=== PATIENT | female | born 1950 | race Caucasian/White ===

== ENCOUNTER 2019-12-27 10:29 | Emergency (ER) | payer MEDICARE, OTHER ==
[~2019-12-27] VITALS: Ht 167.6 cm; Wt 96.2 kg
--- OUTSIDE RECORDS SUMMARY | ~2019-12-27 | XMS | Encounter Summary ---
Demographics + + + | Address | [address] | | | [place] [address] | + + + | Home Phone | | + + + | Preferred Language | Unknown | + + + | Marital Status | | + + + | Religion Affiliation | LUT | + + + | Race | White | + + + | Ethnic Group | Not or | + + + Author + + + | Author | [facility] | + + + | Organization | [facility] | + + + | Address | Unknown | + + + | Phone | Unavailable | + + + Support + + + + + | Name | Relationship | Address | Phone | + + + + + | Sky Pickett | ECON | Unknown | | + + + + + | Cherelle Silva | ECON | [place], | | + + + + + Care Team Providers + +------+ + | Care Autocad Designer Name | Role | Phone | + +------+ + | Oz Rodriguez MD | PCP | | + +------+ + Encounter Details +--------+ + + + + | Date | Type | Department | Care Team | Description | +--------+ + + + + | 11/19/ | Pharmacy | [facility] | | | | 2020 | Visit | [address] | | | | | | [address] | | | | | | [place] [address] | | | | | | [phone] | | | +--------+ + + + + Social History + +-------+ +--------+------+ | Tobacco Use | Types | Packs/Day | Years | Date | | | | | Used | | + +-------+ +--------+------+ | Never Smoker | | | | | + +-------+ +--------+------+ + +---+---+---+ | Smokeless Tobacco: | | | | | Never Used | | | | + +---+---+---+ + + +---------+ + | Alcohol Use | Drinks/Week | oz/Week | Comments | + + +---------+ + | Yes | | | 3 times a week | + + +---------+ + + + + | Sex Assigned at | Date Recorded | | | | + + + | Not on file | | + + + + + + + | Job Start Date | Occupation | Industry | + + + + | Not on file | Not on file | Not on file | + + + + + + + + | Travel History | Travel Start | Travel End | + + + + + + | No recent travel history available. | + + + + + + | COVID-19 Exposure | Response | Date Recorded | + + + + | In the last month, have you been in contact | No / Unsure | 11/10/2019 9:38 AM | | with someone who was confirmed or | | PDT | | suspected to have Coronavirus / COVID-19? | | | + + + + documented as of this encounter Functional Status + + + + | Functional Status | Response | Date of Assessment | + + + + | Because of a physical, mental, or emotional | No | 08/06/2019 | | condition, do you have serious difficulty | | | | doing errands alone such as visiting the | | | | doctor? | | | + + + + + + + + | Cognitive Status | Response | Date of Assessment | + + + + | Because of a physical, mental, or emotional | No | 08/06/2019 | | condition, do you have serious difficulty | | | | concentrating, remembering, or making | | | | decisions? (5 years old or older) | | | + + + + documented as of this encounter Plan of Treatment +--------+ + + + + | Date | Type | Specialty | Care Team | Description | +--------+ + + + + | 01/14/ | Appointment | Cardiology | | | | 2019 | | | | | +--------+ + + + + | 01/14/ | Clinical | Phlebotomy | | | | 2019 | Support | | | | | | Staff | | | | +--------+ + + + + | 01/14/ | Office | Hematology | Daysi Mccauley MD | | | 2019 | Visit | Malignancy | [address] | | | | | | [place], | | | | | | [place] [address] | | | | | | [phone] | | | | | | | | +--------+ + + + + | 01/14/ | Appointment | Hematology & | Onc, [address] | | | 2019 | | Oncology | [place] | | | | | | [place] [address] | | +--------+ + + + + documented as of this encounter Visit Diagnoses Not on filedocumented in this encounter"
--- OUTSIDE RECORDS SUMMARY | ~2019-12-27 | XMS | Encounter Summary ---
Demographics + + + | Address | [address] | | | [place] [address] | + + + | Home Phone | | + + + | Preferred Language | Unknown | + + + | Marital Status | | + + + | Presybeterian Affiliation | LUT | + + + | Race | White | + + + | Ethnic Group | Not or | + + + Author + + + | Author | [facility] | + + + | Organization | [facility] | + + + | Address | [...] Team Providers + +------+ + | Care Steward/Stewardess Club Car Name | Role | Phone | + +------+ + | Margarita Patterson | PCP | | + +------+ + Reason for Visit + + + | Reason | Comments | + + + | Oral Chemo | ruxolitinib follow up | + + + Encounter Details +--------+ + + + + | Date | Type | Department | Care Team | Description | +--------+ + + + + | 09/24/ | Telephone | [facility] | Damon Baron, | Oral Chemo | | 2019 | | Clinics at S | PharmD [address] | (ruxolitinib follow | | | | [facility] [address] | up) | | | | [facility] | [place], [place] | | | | | [facility] and He[facility], | [address] | | | | | [address] | | | | | | [place], [place] | | | | | | [address] | | | | | | [phone] | | | +--------+ + + + [...] in contact | No / Unsure | 09/11/2019 2:56 PM | | with someone who was confirmed [...] | | | | | | [place] [address] | | | | | | [phone] | | | | | | | | +--------+ + + + + | 01/14/ | Appointment | Hematology & | Onc, [address] | | | 2019 | | Oncology | [place], | | | | | | [place] [address] | | +--------+ + + + + documented as of this encounter Visit Diagnoses Not on filedocumented in this encounter"
--- OUTSIDE RECORDS SUMMARY | ~2019-12-27 | XMS | Encounter Summary ---
Demographics + + + | Address | [address] | | | [place] [address] | + + + | Home Phone | | + + + | Preferred Language | Unknown | + + + | Marital Status | | + + + | Faith Affiliation | LUT | + + + | Race | White | + + + | Ethnic Group | Not or | + + + Author + + + | Author | [facility] | + + + | Organization | [facility] | + + + | Address [...] Team Providers + +------+ + | Care Steam Tender Name | Role | Phone | + +------+ + | Oz Rodriguez MD | PCP | | + +------+ + Encounter Details +--------+ + + + + | Date | Type | Department | Care Team | Description | +--------+ + + + + | 08/26/ | Pharmacy | Pharmacy @ [facility] | | | | 2019 | Visit | [address] | | | | | | [address] Mailcode: | | | | | | [facility] | | | | | | [address], | | | | | | [address] | | | | | | [place], [place] | | | | | | [address] | | | +--------+ + + + [...] in contact | No / Unsure | 08/29/2019 10:47 AM | | with someone who was [...] | | | | | | [place], | | | | | | [place] [address] | | | | | | [phone] | | | | | | | | +--------+ + + + + | 01/14/ | Appointment | Hematology & | Onc, [address] | | | 2020 | | Oncology | [address] [place], | | | | | | [place] [address] | | +--------+ + + + + documented as of this encounter Visit Diagnoses Not on filedocumented in this encounter"
--- OUTSIDE RECORDS SUMMARY | ~2019-12-27 | XMS | Encounter Summary ---
Demographics + + + | Address | [address] | | | [place] [address] | + + + | Home Phone | | + + + | Preferred Language | Unknown | + + + | Marital Status | | + + + | Samaritan Affiliation | LUT | + + + | Race | White | + + + | Ethnic Group | Not or | + + + Author + + + | Author | [facility] | + + + | Organization | [facility] | + + + | [...] Team Providers + +------+ + | Care Investment Banking Manager Name | Role | Phone | + +------+ + | Oz Rodriguez MD | PCP | | + +------+ + Encounter Details +--------+ + + + + | Date | Type | Department | Care Team | Description | +--------+ + + + + | 11/19/ | Pharmacy | Pharmacy @ [facility] | | | | 2020 | Visit | [address] | | | | | | [address] Mailcode: | | | | | | [facility] | | | | | | [address], | | | | | | [address] | | | | | | [place], [place] | | | | | | [address] | | | +--------+ + + + [...] | | | | | [place], | | | | | | [place] [address] | | | | | | [phone] | | | | | | | | +--------+ + + + + | 01/14/ | Appointment | Hematology & | Onc, [address] | | | 2020 | | Oncology | [place], | | | | | | [place] [address] | | +--------+ + + + + documented as of this encounter Visit Diagnoses Not on filedocumented in this encounter"
--- OUTSIDE RECORDS SUMMARY | ~2019-12-27 | XMS | Encounter Summary ---
Demographics + + + | Address | [address] | | | [place] [address] | + + + | Home Phone | | + + + | Preferred Language | Unknown | + + + | Marital Status | | + + + | Baptist Affiliation | LUT | + + + | Race | White | + + + | Ethnic Group | Not or | + + + Author + + + | Author | [facility] | + + + | Organization | [facility] | + + + | Address [...] Team Providers + +------+ + | Care Staff Certified Nurse Midwife Name | Role | Phone | + +------+ + | Margarita Patterson | PCP | | + +------+ + Encounter Details +--------+ + + + + | Date | Type | Department | Care Team | Description | +--------+ + + + + | 12/01/ | Grip Assembler | [facility] | Daysi Mccauley MD | MF (myelofibrosis) | | 2020 | | Clin[facility] S | [address] | (HCC) (Primary Dx) | | | | [facility] [address] [place], | | | | | [facility] | [place] [address] | | | | | Health and Healing, | [phone] | | | | | [address] | | | | | | [place], [place] | | | | | | [address] | | | | | | [phone] | | | +--------+ + + + [...] Appointment | Cardiology | | | | 2020 | | | | | +--------+ + + + + | 01/14/ | Clinical | Phlebotomy | | | | 2020 | Support | | | | | | Staff | | | | +--------+ + + + + | 01/14/ | Office | Hematology | Daysi Mccauley MD | | | 2020 | Visit | Malignancy | [address] | | | | | | [place], | | | | | | [place] [address] | | | | | | [phone] | | | | | | | | +--------+ + + + + | 01/14/ | Appointment | Hematology & | Onc, [address] | | | 2019 | | Oncology | [place], | | | | | | [place] [address] | | +--------+ + + + + + +------+--------+ + + | Name | Type | Priori | Associated Diagnoses | Order Schedule | | | | ty | | | + +------+--------+ + + | 12 LEAD ECG | ECG | Routin | MF (myelofibrosis) | Ordered: 12/02/2019 | | | | e | (HCC) | | + +------+--------+ + + | 12 LEAD ECG | ECG | Routin | MF (myelofibrosis) | Ordered: 12/02/2019 | | | | e | ([facility]) | | + +------+--------+ + + documented as of this encounter Procedures + +--------+ + + + | Procedure Name | Priori | Date/Time | Associated Diagnosis | Comments | | | ty | | | | + +--------+ + + + | 12 LEAD ECG | Routin | 12/04/2019 | MF (myelofibrosis) | Results for this | | | e | 2:45 PM | (HCC) | procedure are in the | | | | PDT | | results section. | + +--------+ + + + documented in this encounter Results 12 LEAD ECG (12/04/2019 2:45 PM PDT) + + + + + + | Component | Value | Ref Range | Performed | Pathologist | | | | | At | Signature | + + + + + + | VENTRICULAR | 60 | bpm | [facility] | | | RATE | | | OF | | | | | | CARDIOLOGY | | + + + + + + | ATRIAL RATE | 60 | ms | [facility] | | | | | | OF | | | | | | CARDIOLOGY | | + + + + + + | P-R | 166 | ms | [facility] | | | INTERVAL | | | OF | | | | | | CARDIOLOGY | | + + + + + + | P AXIS | 1 | deg | [facility] | | | | | | OF | | | | | | CARDIOLOGY | | + + + + + + | QRS | 100 | ms | [facility] | | | DURATION | | | OF | | | | | | CARDIOLOGY | | + + + + + + | QT | 450 | ms | [facility] | | | | | | OF | | | | | | CARDIOLOGY | | + + + + + + | QTC-BAEDGARTT | 451 | ms | [facility] | | | | | | OF | | | | | | CARDIOLOGY | | + + + + + + | QTC-FRIDERI | 450 | ms | [facility] | | | RASHI | | | OF | | | | | | CARDIOLOGY | | + + + + + + | R AXIS | -11 | deg | [facility] | | | | | | OF | | | | | | CARDIOLOGY | | + + + + + + | T AXIS | 41 | deg | [facility] | | | | | | OF | | | | | | CARDIOLOGY | | + + + + + + | ECG | Sinus rhythm- NORMAL ECG | | [facility] | | | IMPRESSION | - | | OF | | | | | | CARDIOLOGY | | + + + + + + | ECG | Electronically signed | | [facility] | | | IMPRESSION | by: JEROME STONER | | OF | | | | 12-04-2019 21:16:00 | | CARDIOLOGY | | + + + + + + + + | Specimen | + + | | + + + + + | Narrative | Performed At | + + + | | | + + + + + + + + | Performing | Address | City/State/Zipcode | Phone Number | | Organization | | | | + + + + + | [facility] | [address] | [place], [place] | | | CARDIOLOGY | [address] | [address] | | + + + + + documented in this encounter Visit Diagnoses + + | Diagnosis | + + | MF (myelofibrosis) (HCC) - Primary Myelofibrosis | + + documented in this encounter"
--- OUTSIDE RECORDS SUMMARY | ~2019-12-27 | XMS | Encounter Summary ---
Demographics + + + | Address | [address] | | | [place] [address] | + + + | Home Phone | | + + + | Preferred Language | Unknown | + + + | Marital Status | | + + + | Baptism Affiliation | LUT | + + + | Race | White | + + + | Ethnic Group | Not or | + + + Author + + + | Author | [facility] | + + + | Organization | [facility] | + + + | Address [...] Team Providers + +------+ + | Care Court Registry Officer Name | Role | Phone | + +------+ + | Margarita Patterson | PCP | | + +------+ + Reason for Visit + + + | Reason | Comments | + + + | Transfusion | | + + + Encounter Details +--------+ + + + + | Date | Type | Department | Care Team | Description | +--------+ + + + + | 08/28/ | Hospital | [facility] | | | | 2020 | Encounter | [facility] | | | | | | [facility] [address] | | | | | | [facility] | | | | | [facility], | | | | | | [address] | | | | | | [place], [place] | | | | | | [address] | | | | | | [phone] | | | +--------+ + + + [...] + + documented as of this encounter Last Filed Vital Signs + + + + + | Vital Sign | Reading | Time Taken | Comments | + + + + + | Blood Pressure | 158/70 | 08/29/2019 2:44 PM | | | | | PDT | | + + + + + | Pulse | 65 | 08/29/2019 2:44 PM | | | | | PDT | | + + + + + | Temperature | 36.7 C (98.1 F) | 08/29/2019 2:44 PM | | | | | PDT | | + + + + + | Respiratory Rate | 16 | 08/29/2019 2:44 PM | | | | | PDT | | + + + + + | Oxygen Saturation | 99% | 08/29/2019 2:44 PM | | | | | PDT | | + + + + + | Inhaled Oxygen | - | - | | | Concentration | | | | + + + + + | Weight | 105.7 kg (233 lb) | 08/29/2019 11:04 AM | | | | | PDT | | + + + + + | Height | - | - | | + + + + + | Body Mass Index | 37.71 | 08/05/2019 10:34 PM | | | | | PST | | + + + + + documented in this encounter Functional Status + + + [...] + + documented as of this encounter Medications at Time of Discharge + + + +---------+ + + | Medication | Sig | Dispensed | Refills | Start | End Date | | | | | | Date | | + + + +---------+ + + | acetaminophen 500 | Take 500 mg by mouth | | 0 | | | | mg oral tablet | every six hours as | | | | | | | needed for mild | | | | | | | pain. | | | | | + + + +---------+ + + | acyclovir 800 mg | Take 1 tablet by | 30 | 11 | 08/09/19 | | | oral | mouth once daily. 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 Administer | | | | | | Pain | with food. | | | | | | | Indications: Pain | | | | | + + + +---------+ + + | fluconazole 200 mg | Take 1 tablet by | 60 | 3 | 08/22/19 | | | oral | mouth two times | tablet | | 20 | | | tabletIndications: | daily. Indications: | | | | | | fungal infection, | fungal infection | | | | | | prophylaxis | prevention | | | | | + + + +---------+ + + | | Take 25 mg by mouth | | 0 | | | | hydroCHLOROthiazide | once daily. | | | | | | 25 mg oral tablet | | | | | | + + + +---------+ + + | levothyroxine 25 | Take 25 mcg by mouth | | 0 | | | | mcg oral tablet | before breakfast. | | | | | + + + +---------+ + + | losartan 100 mg | Take 100 mg by mouth | | 0 | | | | oral tablet | once daily. | | | | | + + + +---------+ + + documented as of this encounter Progress Notes Gama Susan C, RN - 08/29/2019 11:30 AM PDT Patient ambulated independently into clinic. 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 In clinic for labs and replac ements Nursing Assessment Pain: Yes, patient has 7/10 pain in her BLE. She is taking tylenol and Celebrex to manager of compensation her pain. Fever or chills: Denies Fatigue or sleep disturbance: Yes, severe on going fatigue issues. Dizziness: Denies Neuropathy: Denies Mucositis: Denies Dyspnea, cough: Denies a cough, patient has on going ELAINE Signs of bleeding: Denies Nausea, vomiting or loss of appetite: Denies N/V, patient has a poor appetite but feels she is eating adequately. Fluid intake: 1-2 L/day, pt feels she is drinking adequate amounts. Diarrhea or constipation: Denies Edema: Denies Rash: Denies Vascular Access: PICC intact to left upper arm without erythema or induration. PICC accessed per protocol. Good blood return noted. Appropriate waste discarded. Labs drawn and sent. PICC pulse flu shed with 20 mL NS. Next dressing change is DUE 09/02/19 Per verbal orders from MD Mccauley: - Give 1 unit of PRBCs. Lab Results Component Value Date HCT 24.2 08/29/2019 HB 8.5 08/29/2019 Orders to transfuse PRBC product for a Hematocrit today as above. Type and cross for 1 uni ts of PRBC was sent to Blood Bank. Each unit was checked by two RNs to confirm the unit num fernanda, ABO and Rh type printed on tag matched information on blood bag and to confirm crossmat ch compatibility. At the bedside, two RNs verified the correct patient using two unique aryan ntifiers, confirmed the unit number, ABO and Rh type printed on tag matched the information on blood bag and confirmed crossmatch compatibility. Informed consent was verified. The patient was not premedicated. She received 1 unit of PRBCs per Provider s orders. T ransfusion was tolerated well without complication. Frequent vital signs were monitored thr oughout the transfusion and reviewed by me. For transfusion details, see ONC Lines & Transf usions doc flowsheet. Education: I called patient's Derek to ensure all medication and care questions were answered. I communicated with Derek that Fidelia should continue taking the Losartan as pharmacy direct ed, as her BP has been high. I also phoned patient's daughter to ensure all questions were a nswered, daughter requested a pharmacist call her, as she had questions regarding the intera ction between fluconazole and celebrex. Cherry López pharmacist notified and will follow up wit h patient's daughter. Reviewed next appt time with pt. Educated pt to contact clinic if experiencing temp greate r than 100.4, chills, s/s of infection or bleeding, inability to swallow or keep down liquid s or pills. Pt verbalized understanding. I wheeled patient out of clinic to her , who is also tram driver. documented in this enc ounter Plan of Treatment +--------+ + + + [...] [facility] | | | | | | [address] [place], | | | | | | [place] [address] | | | | | | [phone] | | | | | | | | +--------+ + + + + | 01/14/ | Appointment | Hematology & | Onc, Gen [address] | | | 2019 | | Oncology | [place], | | | | | | [place] [address] | | +--------+ + + + + + + +--------+ + + | Name | Type | Priori | Associated Diagnoses | Order Schedule | | | | ty | | | + + +--------+ + + | MANUAL DIFFERENTIAL | Lab - | Routin | Pancytopenia (HCC) | 08/29/2019 until | | | [facility] | e | | discontinued, 1 | | | Performable | | | completed | | | s | | | | + + +--------+ + + | RBC MORPHOLOGY | Lab - | Routin | Pancytopenia ([facility]) | 08/29/2019 until | | | [facility] | e | | discontinued, 1 | | | Performable | | | completed | | | s | | | | + + +--------+ + + documented as of this encounter Procedures + +--------+ + + + | Procedure Name | Priori | Date/Time | Associated Diagnosis | Comments | | | ty | | | | + +--------+ + + + | HB-LAB | Routin | 08/29/2019 | Pancytopenia (HCC) | Results for this | | CROSSMATCH,ELECTRONI | e | 1:04 PM | | procedure are in the | | C | | PDT | | results section. | + +--------+ + + + | [facility] - MAGNESIUM, | Routin | 08/29/2019 | Pancytopenia (HCC) | Results for this | | PLASMA | e | 11:02 AM | | procedure are in the | | | | PDT | | results section. | + +--------+ + + + | [facility] - PHOSPHORUS, | Routin | 08/29/2019 | Pancytopenia (HCC) | Results for this | | PLASMA | e | 11:02 AM | | procedure are in the | | | | PDT | | results section. | + +--------+ + + + | RBC MORPHOLOGY | Routin | 08/29/2019 | Pancytopenia (HCC) | Results for this | | | e | 11:02 AM | | procedure are in the | | | | PDT | | results section. | + +--------+ + + + | CBC AND AUTO DIFF | Routin | 08/29/2019 | Pancytopenia (HCC) | Results for this | | | e | 11:02 AM | | procedure are in the | | | | PDT | | results section. | + +--------+ + + + | MANUAL DIFFERENTIAL | Routin | 08/29/2019 | Pancytopenia (HCC) | Results for this | | | e | 11:02 AM | | procedure are in the | | | | PDT | | results section. | + +--------+ + + + | [facility] - COMPLETE | Routin | 08/29/2019 | Pancytopenia (HCC) | Results for this | | METABOLIC SET | e | 11:02 AM | | procedure are in the | | | | PDT | | results section. | + +--------+ + + + | [facility] CBC W | Routin | 08/29/2019 | Pancytopenia (HCC) | Results for this | | DIFFERENTIAL | e | 11:02 AM | | procedure are in the | | | | PDT | | results section. | + +--------+ + + + | BLOOD BANK HOLD TUBE | Routin | 08/29/2019 | Pancytopenia (HCC) | Results for this | | - DON | e | 11:02 AM | | procedure are in the | | | | PDT | | results section. | | T PROCESS | | | | | + +--------+ + + + documented in this encounter Results PRODUCT - RED CELLS LEUKOREDUCED (08/29/2019 1:04 PM PDT) + + + + + + | Component | Value | Ref Range | Performed | Pathologist | | | | | At | Signature | + + + + + + | PRODUCT | -1 RED BLOOD CELLS | | [facility] | | | DESCRIPTION | LEUKOREDUCED IRRADIATED | | LABORATORY | | | | | | SERVICES, | | | | | | TRANSFUSION | | | | | | MEDICINE | | + + + + + + | PRODUCT | [id number] | | [facility] | | | UNIT # | | | LABORATORY | | | | | | SERVICES, | | | | | | TRANSFUSION | | | | | | MEDICINE | | + + + + + + | UNIT ABO | A | | [facility] | | | | | | LABORATORY | | | | | | SERVICES, | | | | | | TRANSFUSION | | | | | | MEDICINE | | + + + + + + | UNIT RH | NEG | | [facility] | | | | | | LABORATORY | | | | | | SERVICES, | | | | | | TRANSFUSION | | | | | | MEDICINE | | + + + + + + | STATUS OF | Presumed Transfused | | [facility] | | | UNIT | | | LABORATORY | | | | | | SERVICES, | | | | | | TRANSFUSION | | | | | | MEDICINE | | + + + + + + | EXPIRATION | [id number] | | [facility] | | | DATE | | | LABORATORY | | | | | | SERVICES, | | | | | | TRANSFUSION | | | | | | MEDICINE | | + + + + + + | BLOOD TYPE | [id number] | | [facility] | | | BARCODE | | | LABORATORY | | | | | | SERVICES, | | | | | | TRANSFUSION | | | | | | MEDICINE | | + + + + + + | BLOOD | [id number] | | [facility] | | | PRODUCT | | | LABORATORY | | | CODE | | | SERVICES, | | | | | | TRANSFUSION | | | | | | MEDICINE | | + + + + + + + + | Specimen | + + | | + + + + + + + | Performing | Address | City/State/Zipcode | Phone Number | | Organization | | | | + + + + + | [facility] | [address] | [place] [address] | | | SERVICES, | [address] | | | | TRANSFUSION MEDICINE | | | | + + + + + RBC MORPHOLOGY (08/29/2019 11:02 AM PDT) + + + + + + | Component | Value | Ref Range | Performed | Pathologist | | | | | At | Signature | + + + + + + | ANISOCYTOSI | 1+(10-25cells/HPF) | | [facility] | | | S | | | LABORATORY | | | | | | SERVICES, | | | | | | [facility] + | | | | | | [facility]ALING | | + + + + + + | ACANTHOCYTE | 1+ (<2-4cells/HPF) | | [facility] | | | S | | | LABORATORY | | | | | | SERVICES, | | | | | | [facility] | | | [facility] + | | | | | | HEALING | | + + + + + + + + | Specimen | + + | Blood - Blood | | (substance) | + + + + + + + | Performing | Address | City/State/Zipcode | Phone Number | | Organization | | | | + + + + + | [facility] | [address] | [place] [address] | | | SERVICES, [place] | | | | | [facility] + HEALING | | | | + + + + + MANUAL DIFFERENTIAL (08/29/2019 11:02 AM PDT) + + + + + + | Component | Value | Ref Range | Performed | Pathologist | | | | | At | Signature | + + + + + + | NEUTROPHIL | 18.0 (L) | 50.0 - 70.0 % | [facility] | | | % | | | LABORATORY | | | | | | SERVICES, | | | | | | [facility] | [facility] + | | | | | | [facility]ALING | | + + + + + + | LYMPHOCYTE | 64.0 (H) | 18.0 - 42.0 % | [facility] | | | % | | | LABORATORY | | | | | | SERVICES, | | | | | | [facility] | [facility] + | | | | | | [facility]ALING | | + + + + + + | MONOCYTE % | 6.3 | 3.5 - 9.0 % | [facility] | | | | | | LABORATORY | | | | | | SERVICES, | | | | | | [facility] | [facility] + | | | | | | HEALING | | + + + + + + | EOSINOPHIL | 1.8 | 1.0 - 3.0 % | [facility] | | | % | | | LABORATORY | | | | | | SERVICES, | | | | | | [facility] | [facility] + | | | | | | HEALING | | + + + + + + | BASOPHIL % | 0.0 | 0.0 - 2.0 % | [facility] | | | | | | LABORATORY | | | | | | SERVICES, | | | | | | [facility] | [facility] + | | | | | | [facility]AL[facility] | | + + + + + + | IG% | 5.4 (H) | 0.0 - 1.0 % | [facility] | | | | | | LABORATORY | | | | | | SERVICES, | | | | | | [facility] | [facility] + | | | | | | HEALING | | + + + + + + | ATYPICAL | 4.5 (H)Comment: Atypical | 0.0 % | [facility] | | | CELL % | cells with fine | | LABORATORY | | | | chromatin, high N:C | | SERVICES, | | | | ratio, prominent | | [facility] | | | | nucleoli and dark blue | | HEALTH + | | | | cytoplasm. | | HEALING | | + + + + + + | NEUTROPHIL | 0.30 (L) | 1.80 - 7.70 | [facility] | | | # | | K/cu mm | LABORATORY | | | | | | SERVICES, | | | | | | [facility] | [facility] + | | | | | | [facility]ALING | | + + + + + + | LYMPHOCYTE | 1.06 | 1.00 - 4.80 | [facility] | | | # | | K/cu mm | LABORATORY | | | | | | SERVICES, | | | | | | [facility] | [facility] + | | | | | | [facility]ALING | | + + + + + + | MONOCYTE # | 0.10 | 0.10 - 0.90 | [facility] | | | | | K/cu mm | LABORATORY | | | | | | SERVICES, | | | | | | [facility] | | [facility] + | | | | | | HEALING | | + + + + + + | EOSINOPHIL | 0.03 | 0.00 - 0.50 | [facility] | | | # | | K/cu mm | LABORATORY | | | | | | SERVICES, | | | | | | [facility] | | [facility] + | | | | | | [facility]ALING | | + + + + + + | BASOPHIL # | 0.00 | 0.00 - 0.10 | [facility] | | | | | K/cu mm | LABORATORY | | | | | | SERVICES, | | | | | | [facility] | | | [facility] + | | | | | | HEALING | | + + + + + + | IG# | 0.09 | 0.00 - 0.10 | [facility] | | | | | K/cu mm | LABORATORY | | | | | | SERVICES, | | | | | | [facility] | | | [facility] + | | | | | | HEALING | | + + + + + + | ATYPICAL | 0.07 | K/cu mm | [facility] | | | CELLS # | | | LABORATORY | | | | | | SERVICES, | | | | | | [facility] | | | [facility] + | | | | | | [facility]ALING | | + + + + + + + + | Specimen | + + | Blood - Blood | | (substance) | + + + + + | Narrative | Performed At | + + + | Increased immature granulocytes (IG) define a left shift. Immature | [facility] | | granulocytes (IG) are an automated count of metamyelocytes, | LABORATORY | | myelocytes and promyelocytes. Bands are not included in the IG count. | SERVICES, | | Bands are included in the neutrophil count. | [facility] + | | | [facility]AL[facility] | + + + + + + + + | Performing | Address | City/State/Zipcode | Phone Number | | Organization | | | | + + + + + | [facility] | [address] | [place] [address] | | | [facility] | | | | | HEALTH + HEALING | | | | + + + + + CBC AND AUTO DIFF (08/29/2019 11:02 AM PDT) + + + + + + | Component | Value | Ref Range | Performed | Pathologist | | | | | At | Signature | + + + + + + | WHITE CELL | 1.65 (LL) | 3.50 - 10.80 | [facility] | | | COUNT | | K/cu mm | LABORATORY | | | | | | SERVICES, | | | | | | [facility] | [facility] + | | | | | | HEALING | | + + + + + + | RED CELL | 2.98 (L) | 4.00 - 5.20 | [facility] | | | COUNT | | M/cu mm | LABORATORY | | | | | | SERVICES, | | | | | | [facility] | | | [facility] + | | | | | | HEALING | | + + + + + + | HEMOGLOBIN | 8.5 (L) | 12.0 - 16.0 | [facility] | | | | | g/dL | LABORATORY | | | | | | SERVICES, | | | | | | [facility] | [facility] + | | | | | | [facility]ALING | | + + + + + + | HEMATOCRIT | 24.2 (L) | 36.0 - 46.0 % | [facility] | | | | | | LABORATORY | | | | | | SERVICES, | | | | | | [facility] | [facility] + | | | | | | [facility]AL[facility] | | + + + + + + | MCV | 81.2 | 80.0 - 100.0 fL | [facility] | | | | | | LABORATORY | | | | | | SERVICES, | | | | | | [facility] | [facility] + | | | | | | [facility]ALING | | + + + + + + | MCHC | 35.1 | 32.0 - 36.0 | [facility] | | | | | g/dL | LABORATORY | | | | | | SERVICES, | | | | | | [facility] | [facility] + | | | | | | HEALING | | + + + + + + | RDW SD | 38.8 | 35.1 - 46.3 fL | [facility] | | | | | | LABORATORY | | | | | | SERVICES, | | | | | | [facility] | | | [facility] + | | | | | | HEALING | | + + + + + + | PLATELET | 13 (L) | 150 - 400 K/cu | [facility] | | | COUNT | | mm | LABORATORY | | | | | | SERVICES, | | | | | | [facility] | | [facility] + | | | | | | [facility]ALING | | + + + + + + | MPV | Comment: Not Measured | | [facility] | | | | | | LABORATORY | | | | | | SERVICES, | | | | | | [facility] | | | [facility] + | | | | | | HEALING | | + + + + + + | NRBC% | 0.0 | 0.0 - 0.3 % | [facility] | | | | | | LABORATORY | | | | | | SERVICES, | | | | | | [facility] | | | | | [facility] + | | | | | | HEALING | | + + + + + + | NRBC# | 0.00 | 0.00 - 0.02 | [facility] | | | | | K/cu mm | LABORATORY | | | | | | SERVICES, | | | | | | [facility] | | | | | [facility] + | | | | | | HEALING | | + + + + + + | NEUTROPHIL | 0.29 (L)Comment: | 1.80 - 7.70 | [facility] | | | # Prelim | Preliminary automated | K/cu mm | LABORATORY | | | | neutrophil result. | | SERVICES, | | | | Refer to Neutrophil # | | [facility] | | | | for final neutrophil | | HEALTH + | | | | result, which may differ | | HEALING | | | | from this preliminary | | | | | | value. | | | | + + + + + + + + | Specimen | + + | Blood - Blood | | (substance) | + + + + + + + | Performing | Address | City/State/Zipcode | Phone Number | | Organization | | | | + + + + + | [facility] | [address] | [place] [address] | | | SERVICES, [facility] | | | | | [facility] + HEALING | | | | + + + + + [facility] - PHOSPHORUS, PLASMA (08/29/2019 11:02 AM PDT) + +-------+ + + + | Component | Value | Ref Range | Performed | Pathologist | | | | | At | Signature | + +-------+ + + + | PHOSPHORUS, | 4.5 | 2.4 - 4.7 mg/dL | [facility] | | | PLASMA | | | LABORATORY | | | (LAB) | | | SERVICES, | | | | | | [facility] | | | | [facility] + | | | | | | HEALING | | + +-------+ + + + + + | Specimen | + + | Blood - Blood | | (substance) | + + + + + + + | Performing | Address | City/State/Zipcode | Phone Number | | Organization | | | | + + + + + | [facility] | [address] | [place] [address] | | | SERVICES, [place] | | | | | [facility] + HEALING | | | | + + + + + [facility] - MAGNESIUM, PLASMA (08/29/2019 11:02 AM PDT) + +-------+ + + + | Component | Value | Ref Range | Performed | Pathologist | | | | | At | Signature | + +-------+ + + + | MAGNESIUM,P | 1.6 | 1.6 - 2.6 mg/dL | [facility] | | | LASMA | | | LABORATORY | | | | | | SERVICES, | | | | | | [facility] | | | [facility] + | | | | | | HEALING | | + +-------+ + + + + + | Specimen | + + | Blood - Blood | | (substance) | + + + + + + + | Performing | Address | City/State/Zipcode | Phone Number | | Organization | | | | + + + + + | [facility] | [address] | [place] [address] | | | SERVICES, [facility] | | | | [facility] + HEALING | | | | + + + + + BLOOD BANK HOLD TUBE - DON T PROCESS (08/29/2019 11:02 AM PDT) + + + + + + | Component | Value | Ref Range | Performed | Pathologist | | | | | At | Signature | + + + + + + | SPECIMEN | Sample received with | | [facility] | | | COLLECTED, | adeq label/volume to | | LABORATORY | | | HELD | process | | SERVICES, | | | | | | TRANSFUSION | | | | | | MEDICINE | | + + + + + + + + | Specimen | + + | Blood - Blood | | (substance) | + + + + + + + | Performing | Address | City/State/Zipcode | Phone Number | | Organization | | | | + + + + + | [facility] | [address] | [place] [address] | | | SERVICES, | [address] | | | | TRANSFUSION MEDICINE | | | | + + + + + [facility] - COMPLETE METABOLIC SET (08/29/2019 11:02 AM PDT) + + + + + + | Component | Value | Ref Range | Performed | Pathologist | | | | | At | Signature | + + + + + + | GLUCOSE, | 184 (H) | 70 - 99 mg/dL | [facility] | | | PLASMA | | | LABORATORY | | | (LAB) | | | SERVICES, | | | | | | [facility] | [facility] | [facility] + | | | | | | HEALING | | + + + + + + | BUN, PLASMA | 12 | 6 - 20 mg/dL | [facility] | | | (LAB) | | | LABORATORY | | | | | | SERVICES, | | | | | | [facility] | | | [facility] + | | | | | | HEALING | | + + + + + + | CREATININE | 0.70 | 0.60 - 1.10 | [facility] | | | PLASMA | | mg/dL | LABORATORY | | | (LAB) | | | SERVICES, | | | | | | [facility] | | | | | [facility] + | | | | | | HEALING | | + + + + + + | EGFR | >60 | >60 mL/min | [facility] | | | - | | | LABORATORY | | | EMIRATI | | | SERVICES, | | | | | | [facility] | | | | | [facility] + | | | | | | HEALING | | + + + + + + | EGFR NON | >60 | >60 mL/min | [facility] | | | -[facility] | | | LABORATORY | | | RICAN | | | SERVICES, | | | | | | [facility] | | | [facility] + | | | | | | HEALING | | + + + + + + | SODIUM, | 139 | 136 - 145 | [facility] | | | PLASMA | | mmol/L | LABORATORY | | | (LAB) | | | SERVICES, | | | | | | [facility] | | | | | [facility] + | | | | | | HEALING | | + + + + + + | POTASSIUM, | 3.6 | 3.4 - 5.0 | [facility] | | | PLASMA | | mmol/L | LABORATORY | | | (LAB) | | | SERVICES, | | | | | | [facility] | | | | | | [facility] + | | | | | | HEALING | | + + + + + + | CHLORIDE, | 101 | 97 - 108 mmol/L | [facility] | | | PLASMA | | | LABORATORY | | | (LAB) | | | SERVICES, | | | | | | [facility] | | | | | [facility] + | | | | | | HEALING | | + + + + + + | TOTAL CO2, | 29 | 21 - 32 mmol/L | [facility] | | | PLASMA | | | LABORATORY | | | (LAB) | | | SERVICES, | | | | | | [facility] | | | | [facility] + | | | | | | HEALING | | + + + + + + | CALCIUM, | 10.4 (H) | 8.6 - 10.2 | [facility] | | | PLASMA | | mg/dL | LABORATORY | | | (LAB) | | | SERVICES, | | | | | | [facility] | | | | [facility] + | | | | | | HEALING | | + + + + + + | CALCIUM(ALB | 11.4 (H) | 8.6 - 10.2 | [facility] | | | CORRECTED) | | mg/dL | LABORATORY | | | | | | SERVICES, | | | | | | [facility] | [facility] | | | [facility] + | | | | | | HEALING | | + + + + + + | BILIRUBIN | 0.7 | 0.3 - 1.2 mg/dL | [facility] | | | TOTAL | | | LABORATORY | | | | | | SERVICES, | | | | | | [facility] | | | | | | [facility] + | | | | | | HEALING | | + + + + + + | TOTAL | 7.4 | 6.4 - 8.2 g/dL | [facility] | | | PROTEIN, | | | LABORATORY | | | PLASMA | | | SERVICES, | | | (LAB) | | | [facility] + | | | | | | [facility] | | + + + + + + | ALBUMIN, | 2.8 (L) | 3.5 - 4.7 g/dL | [facility] | | | PLASMA | | | LABORATORY | | | (LAB) | | | SERVICES, | | | | | | [facility] | | [facility] | | | | | | [facility] | | + + + + + + | ALK PHOS | 167 (H) | 53 - 141 U/L | [facility] | | | | | | LABORATORY | | | | | | SERVICES, | | | | | | [facility] + | | | | | | [facility] | | + + + + + + | AST(SGOT) | 21 | <=41 U/L | [facility] | | | | | | LABORATORY | | | | | | SERVICES, | | | | | | [facility] + | | | | | | [facility] | | + + + + + + | ALT (SGPT) | 28 | <=60 U/L | [facility] | | | | | | LABORATORY | | | | | | SERVICES, | | | | | | [facility] + | | | | | | [facility] | | + + + + + + | ANION GAP | 9 | 4 - 11 mmol/L | [facility] | | | | | | LABORATORY | | | | | | SERVICES, | | | | | | [facility] | | | | | | [facility] | | + + + + + + | ANION | 12 (H) | 4 - 11 mmol/L | [facility] | | | GAP(ALB | | | LABORATORY | | | CORRECTED) | | | SERVICES, | | | | | | [facility] | [facility] | | | | | | [facility] | | + + + + + + | POTASSIUM | No Hemo | | [facility] | | | CMNT | | | LABORATORY | | | | | | SERVICES, | | | | | | [facility] + | | | | | | [facility] | | + + + + + + | BILI T CMNT | No Hemo | | [facility] | | | | | | LABORATORY | | | | | | SERVICES, | | | | | | [facility] + | | | | | | [facility] | | + + + + + + | AST CMNT | No Hemo | | [facility] | | | | | | LABORATORY | | | | | | SERVICES, | | | | | | [facility] | | | | | | [facility] | | + + + + + + | BUN/CREATIN | 17 | 8 - 25 | [facility] | | | INE RATIO | | | LABORATORY | | | | | | SERVICES, | | | | | | [facility] + | | | | | | [facility] | | + + + + + + | GLOBULIN | 4.6 (H) | 2.3 - 3.5 gm/dL | [facility] | | | LVL | | | LABORATORY | | | | | | SERVICES, | | | | | | [facility] + | | | | | | HEALING | | + + + + + + | ALBUMIN/ASHA | 0.6 (L) | 0.7 - 2.8 | [facility] | | | [facility] | | | LABORATORY | | | | | | SERVICES, | | | | | | [facility] | | | | | [facility] + | | | | | | HEALING | | + + + + + + + + | Specimen | + + | Blood - Blood | | (substance) | + + + + + | Narrative | Performed At | + + + | GFR is estimated using the MDRD equation recommended by the National | [facility] | | Kidney Disease Education Program. Estimated GFR Interpretive | LABORATORY | | Information: <60 mL/min/1.73 sq m Chronic Kidney | SERVICES, | | Disease <15 mL/min/1.73 sq m Kidney Failure | CENTER FOR | | Estimated GFR greater than 60 mL/min/1.73 sq m is of limited clinical | HEALTH + | | value. The MDRD equation is not valid in the following situations: | HEALING | | - Patients under 18 years of age - Severe malnutrition or obesity | | | - Vegetarian diet - Rapidly changing kidney function - Amputees, | | | paraplegics, or other muscle-wasting diseases | | + + + + + + + + | Performing | Address | City/State/Zipcode | Phone Number | | Organization | | | | + + + + + | [facility] | [address] | [place] [address] | | | SERVICES, [facility] | | | | | HEALTH + HEALING | | | | + + + + + documented in this encounter Visit Diagnoses + + | Diagnosis | + + | Pancytopenia (HCC) - Primary Other pancytopenia | + + documented in this encounter"
--- OUTSIDE RECORDS SUMMARY | ~2019-12-27 | XMS | Encounter Summary ---
Demographics + + + | Address | [address] | | | [place] [address] | + + + | Home Phone | | + + + | Preferred Language | Unknown | + + + | Marital Status | | + + + | Church Affiliation | LUT | + + + | Race | White | + + + | Ethnic Group | Not or | + + + Author + + + | Author | [facility] | + + + | Organization | [facility] | + + + | Address | [...] Team Providers + +------+ + | Care Team Driver Name | Role | Phone | + +------+ + | Margarita Patterson | PCP | | + +------+ + Reason for Visit + + + | Reason | Comments | + + + | Covid19 Screening | | + + + Encounter Details +--------+ + + + + | Date | Type | Department | Care Team | Description | +--------+ + + + + | 08/31/ | Telephone | [facility] | Daysi Mccauley MD | Covid19 Screening | | 2020 | | Clinics at S | [address] [facility] | | | | | [place] [address] [place], | | | | | [facility] | [place] [address] | | | | | Health and Healing, | [phone] | | | | | [facility] | | | | | | [place], [place] | | | | | | [address] | | | | | | [phone] | | | +--------+ + + + [...] | | | | | | [place] [address] | | | | | | [phone] | | | | | | | | +--------+ + + + + | 01/14/ | Appointment | Hematology & | Onc, [address] | | | 2019 | | Oncology | [place], | | | | | | [place] [address] | | +--------+ + + + + documented as of this encounter Visit Diagnoses Not on filedocumented in this encounter"
--- OUTSIDE RECORDS SUMMARY | ~2019-12-27 | XMS | Encounter Summary ---
Demographics + + + | Address | [address] | | | [place] [address] | + + + | Home Phone | | + + + | Preferred Language | Unknown | + + + | Marital Status | | + + + | [employer] Affiliation | LUT | + + + | Race | White | + + + | Ethnic Group | Not or | + + + Author + + + | Author | [facility] | + + + | Organization | [facility] | + + + | [...] Team Providers + +------+ + | Care Automobile Assembly Supervisor Name | Role | Phone | + +------+ + | Oz Rodriguez MD | PCP | | + +------+ + Reason for Visit + + + | Reason | Comments | + + + | Research | | | Documentation | | + + + Encounter Details +--------+ + + + + | Date | Type | Department | Care Team | Description | +--------+ + + + + | 12/24/ | Documentati | [facility] | Daysi Mccauley MD | Research | | 2020 | on | Clinics at S | [address] [facility] | Documentation | | | | [place] [address] [place], | | | | | [facility] | [place] [address] | | | | | Health and Healing, | [phone] | | | | | [address] | | | | | | [place], [place] | | | | | | [address] | | | | | | [phone] | | | +--------+ + + + [...] in contact | No / Unsure | 12/17/2019 7:49 AM | | with someone who was [...] | | | | | | [place] [address] | | | | | | [phone] | | | | | | | | +--------+ + + + + | 01/14/ | Appointment | Hematology & | Onc, Gen [address] | | | 2019 | | Oncology | [place], | | | | | | [place] [address] | | +--------+ + + + + documented as of this encounter Visit Diagnoses Not on filedocumented in this encounter"
--- OUTSIDE RECORDS SUMMARY | ~2019-12-27 | XMS | Encounter Summary ---
Demographics + + + | Address | [address] | | | [place] [address] | + + + | Home Phone | | + + + | Preferred Language | Unknown | + + + | Marital Status | | + + + | Nondenominational Affiliation | LUT | + + + | Race | White | + + + | Ethnic Group | Not or | + + + Author + + + | Author | [facility] | + + + | Organization | [facility] | + + + | Address | [...] Team Providers + +------+ + | Care Flame Brazing Machine Operator Name | Role | Phone | + +------+ + | Margarita Patterson | PCP | | + +------+ + Reason for Referral Consultation (Routine) + +--------+ + + + + | Status | Reason | Specialty | Diagnoses / | Referred By | Referred To | | | | | Procedures | Contact | Contact | + +--------+ + + + + | Authorized | | Internal | Diagnoses | [place], | Angel, | | | | Medicine | MF | Sheri Pereyra MD | [place], | | | | | (myelofibros | [address] | | | | | is) ([facility]) | [address] | [address] | | | | | Memory | [address]anna Gtz | [address]anna Gtz | | | | | change | [place], [place] | [place], [place] | | | | | Procedures | [address] | [address] | | | | | CONSULT TO | Phone: | Phone: | | | | | INTERNAL | [phone] | [phone] | | | | | MEDICINE - | Fax: | Fax: | | | | | GERIATRICS | [phone] | [phone] | + +--------+ + + + + Diagnostic Testing (Routine) + +--------+ + + + + | Status | Reason | Specialty | Diagnoses / | Referred By | Referred To | | | | | Procedures | Contact | Contact | + +--------+ + + + + | New Request | | Cardiology | Diagnoses | [place], | [place] | | | | | MF | Christy Ramires MD | Health & | | | | | (myelofibros | [address] | [employer] | | | | | is) ([facility]) | Leonel Olivares | [address] [facility] | | | | | Procedures | Rd | [facility] | | | | | TRANSTHORACI | [place], [place] | ROAD | | | | | C | | [place], [place] | | | | | ECHOCARDIOGR | Phone: | | | | | | AM, ADULT | [phone] | Phone: | | | | | | Fax: | [phone] | | | | | | [phone] | | + +--------+ + + + + Diagnostic Testing (Routine) + +--------+ + + + + | Status | Reason | Specialty | Diagnoses / | Referred By | Referred To | | | | | Procedures | Contact | Contact | + +--------+ + + + + | New Request | | Radiology | Diagnoses | [place], | [place] | | | | | MF | Christy Ramires MD | Health & | | | | | (myelofibros | [address] [facility] | [employer] | | | | | is) ([facility]) | [facility] | [address] [facility] | | | | | Procedures | Rd | [facility] | | | | | MRI ABDOMEN | [place], [place] | ROAD | | | | | WO CONTRAST | | [place], [place] | | | | | | Phone: | [phone] | | | | | | [phone] | Phone: | | | | | | Fax: | [phone] | | | | | | [phone] | | + +--------+ + + + + Encounter Details +--------+ + + + + | Date | Type | Department | Care Team | Description | +--------+ + + + + | 11/09/ | Cemetery Manager | [facility] | Christy Wilson MD | MF (myelofibrosis) | | 2020 | | Clinics at S | [address] | (HCC) (Primary Dx); | | | | [facility] [address] | [address]anna [address] [place], | Adverse effect of | | | | [facility] | [place] [address] | chemotherapy, | | | | [facility], | [phone] | initial encounter ; | | | | Building [address] | | On antineoplastic | | | | [place], [place] | | chemotherapy ; | | | | [address] | | Memory change | | | | [phone] | | | +--------+ + + + [...] | 01/14/ | Office | Hematology | Christy Wilson MD | | | 2019 | Visit | Malignancy | [address] | | | | | | [address]anna [address] [place], | | | | | | [place] [address] | | | | | | [phone] | | | | | | | | +--------+ + + + + | 01/14/ | Appointment | Hematology & | Onc, Gen [address] | | | 2019 | | Oncology | [place], | | | | | | [place] [address] | | +--------+ + + + + documented as of this encounter Procedures + +--------+ + + + | Procedure Name | Priori | Date/Time | Associated Diagnosis | Comments | | | ty | | | | + +--------+ + + + | TRANSTHORACIC | Routin | 12/09/2019 | MF (myelofibrosis) | Results for this | | ECHOCARDIOGRAM, | e | 1:47 PM | (HCC) | procedure are in the | | ADULT | | PDT | | results section. | + +--------+ + + + documented in this encounter Results TRANSTHORACIC ECHOCARDIOGRAM, ADULT (12/09/2019 1:47 PM PDT) + + + + + + | Component | Value | Ref Range | Performed | Pathologist | | | | | At | Signature | + + + + + + | BIPLANE, EF | 57 | | [facility] | | | | | | OF | | | | | | CARDIOLOGY | | + + + + + + | EJECTION | 55 to 60 | | [facility] | | | FRACTION | | | OF | | | | | | CARDIOLOGY | | + + + + + + | LA | 4.5 | | [facility] | | | DIMENSION | | | OF | | | | | | CARDIOLOGY | | + + + + + + | LVIDD | 4.6 | | [facility] | | | | | | OF | | | | | | CARDIOLOGY | | + + + + + + | MV A VMAX | 0.6 | | [facility] | | | | | | OF | | | | | | CARDIOLOGY | | + + + + + + | MV E? | 0.1 | | [facility] | | | | | | OF | | | | | | CARDIOLOGY | | + + + + + + | MV E VMAX | 0.7 | | [facility] | | | | | | OF | | | | | | CARDIOLOGY | | + + + + + + | MV E/E' | 12.2 | | [facility] | | | (MITRAL | | | OF | | | VALVE) | | | CARDIOLOGY | | + + + + + + | MITRAL | 14.7 | | [facility] | | | ANNULUS | | | OF | | | MEDIAL E/E" | | | CARDIOLOGY | | | (TISSUE | | | | | | DOPPLER) | | | | | + + + + + + | RVSP | 23 | | [facility] | | | | | | OF | | | | | | CARDIOLOGY | | + + + + + + | RV TAPSE | 2.8 | | [facility] | | | | | | OF | | | | | | CARDIOLOGY | | + + + + + + | RV TDI S? | 12.0 | | [facility] | | | | | | OF | | | | | | CARDIOLOGY | | + + + + + + | TR VMAX | 2.1 | | [facility] | | | (TRICUSPID | | | OF | | | VALVE) | | | CARDIOLOGY | | + + + + + + | EJECTION | 57.5 | % | [facility] | | | FRACTION | | | OF | | | RANGE MEAN | | | CARDIOLOGY | | | VALUE | | | | | + + + + + + + + | Specimen | + + | | + + + -+ + | Narrative | Performed At | + -+ + | [facility] | [facility] | | [facility] Adult Echocardiography [facility] [address] | CARDIOLOGY | | [place], [place] [address] Ph: | | | Pt Name: LANETTE PICKETT | | | Study Date/Time 12/09/2019 / 1:47:19 PMMRN: [id number] | | | Most recent prior: 08/06/2019Acc #: [id number] | | | No. previous echos: 1DOB: 1950 69 years Heart Rate: | | | 59 bpmHeight: 65.9 in Blood Pressure: | | | 102/65 mm/HgWeight: 212.0 lb Gender: | | | FBSA: 2.05 m | | | Order ID: [id number] Study | | | [facility]: Nadia HENRIQUEZ, RDCSReferring Provider: | | | CHRISTY Roland Performed: 2D, Color flow, Spectral Doppler, | | | Strain and For the precise quantification of LV volumes and ejection | | | fraction, online 3-D reconstruction was clinically indicated and | | | performed under the concurrent supervision of the interpreting | | | registrar college or university.Study Quality: Fair.Exam Indication: Research; [place] | | | [id number]: Myelofibrosis Patient history has been obtained from | | | the EHR Transthoracic Echocardiographic Report | | | + | | | ---------+ Final Impressions: | | | | | | | | | | | | | | | 1. The left ventricular size is normal. | | | 2. The LV function is | | | normal. | | | 3. The global longitudinal strain is -16.8 % and the LVEF | | | is 57.0 %. | | | | | | 4. Right ventricular size, thickness and function are normal. | | | 5. No significant valvular abnormalities | | | seen. 6. Moderately | | | dilated left atrium. | | | 7. There is mild dilatation of the ascending aorta. | | | (See comments below). | | | | | | 8. Compared to the most recent exam dated 08/06/2019, the | | | LVEF and mean GLS have slightly decreased, but are still | | | within normal limit. This can be seen in pat | | | | | | | | | | | | + | | | + LV Function & Strain Data | | | Table:+ + +-------+-------+ Study Date: LVEF | | | (Biplane) GLS 3D LVEF | | | + + +-------+-------+ 12/09/2019 57.0 | | | % -16.8 % 52.0 % + + +-------+-------+ | | | 08/06/2019 67.0 % -19.5 % 57.0 % | | | + + +-------+-------+ Description of | | | Findings: Cardiac Rhythm: Normal sinus rhythm.Left Ventricle: The left | | | ventricular size is normal. Visually estimated left ventricular | | | ejection fraction is 55 - 60%. The global longitudinal strain is -16.8 | | | %. The LV diastolic filling pattern is normal. The ejection fraction | | | is 57.0 % as measured by Garcia's biplane method. The LV function is | | | normal.Left Ventricular Wall Motion: Left ventricular systolic | | | thickening is normal in all segments.Atria: Left atrial size is | | | moderately dilated. Normal right atrium.Right Ventricle: Right | | | ventricular size, thickness and function are normal. TAPSE measures | | | 2.8cm. The RV TDI s' velocity is 12cm/sec.Aortic Valve: The aortic | | | valve is trileaflet and normal in structure and function. Trace aortic | | | valve regurgitation.Mitral Valve: The mitral valve is structurally | | | normal. No evidence of mitral valve stenosis. Trace mitral valve | | | regurgitation.Tricuspid Valve: The tricuspid valve is structurally | | | normal. Trace tricuspid regurgitation. The tricuspid regurgitant | | | velocity is 2.11 m/s, and with an assumed right atrial pressure of 5 | | | mmHg, the estimated right ventricular systolic pressure is normal at | | | 22.8 mmHg.Pulmonic Valve: The pulmonic valve is structurally normal. | | | Trace pulmonary valve regurgitation.Aorta: There is mild dilatation of | | | the ascending aorta.Venous: Inferior vena cava is normal with normal | | | inspiratory collapse.Pericardium: No pericardial effusion is seen.2D | | | Measurements Doppler Measurements | | | 2D NL Values Aortic MitralLVID(d) 4.60 | | | (3.5-5.7cm) Max Raul 1.64 Peak E 0.73 cm | | | m/s | | | m/sLVID(s) 3.34 Mean grad 6.6 Peak A | | | 0.60 cm | | | mmHg m/sIVS(d) 1.13 (0.6-1.1cm) LVOT Raul | | | 1.19 E/A Ratio 1.22 cm | | | m/sLVPW(d) 1.05 (0.6-1.1cm) LVOT VTI 0.268 | | | TDI (E/e') 12.2 cm | | | mLA A/Ps 2D 4.49 (2.7-3.9cm) LVOT Diam 2.26 MV mn gd | | | cm cmLA vol A/L 23.4 | | | (16-34) LVOT SV 52.2 MR EROindex ml/m | | | indexed ml/m | | | LA vol MOD 46.1 (40-73ml) Tricuspid PulmonicBP | | | ml TR Vmax 2.11 PV VmaxLA vol MOD | | | 22.5 (16-34) m/sindex ml/m | | | RA Press 5 RVOT VTILVEDV 48.68 | | | mmHgindex ml/m | | | RVSP 23 PV mn gdBiplane EF 57.0 % | | | mmHgGLS % -16.8 | | | % Aorta: | | | Index: Ao Sinus 2.97 | | | (2.1-3.5cm) | | | cm Asc Ao 4.00 | | | 19.5 | | | (prox) cm mm/m | | | Evaluation of chamber size and geometry is accomplished through the | | | incorporation of linear, volumetric, and indexed values Report | | | electronically signed by: [id number] Eric Lin MD, PhD (12/09/2019, | | | 2:48:53 PM) Final | | |index ml/m RVSP 23 PV mn gd | | |Biplane EF 57.0 % mmHg | | |GLS % -16.8 | | | % Aorta: Index: | | | Ao Sinus 2.97 (2.1-3.5cm) | | | cm | | | Asc Ao 4.00 19.5 | | | (prox) cm mm/m | | |Evaluation of chamber size and geometry is accomplished through the incorporation of | | |linear, volumetric, and indexed values | | | | | |Report electronically signed by: [id number] Eric Lin MD, PhD (12/09/2019, 2:48:53 | | | PM) | | | | | | | | | | | | Final | | + -+ + + + | Procedure Note | + + | Interface, Cardiology Results - 12/09/2019 2:48 PM [facility] | | [facility] Echocardiography Laboratory [address] [place] [address] | | [place], [place] [address] Pt Name: LANETTE ALARCON | | NELA Study Date/Time 12/09/2019 / 1:47:19 PMMRN: [id number] Most | | recent prior: 08/06/2019Acc #: [id number] No. previous echos: 1DOB: | | 1950 69 years Heart Rate: 59 bpmHeight: 65.9 in Blood | | Pressure: 102/65 mm/HgWeight: 212.0 lb Gender: FBSA: | | 2.05 m | | Order ID: [id number] [facility] September | | Lázaro HENRIQUEZ, RDCSReferring Provider: CHRISTY WILSONModwanda Performed: 2D, Color flow, | | Spectral Doppler, Strain and For the precise quantification of LV volumes and ejection | | fraction, online 3-D reconstruction was clinically indicated and performed under the | | concurrent supervision of the interpreting registrar college or university.Study Quality: Fair.Exam | | Indication: Research; [place] [id number]: Myelofibrosis Patient history has been | | obtained from the EHR Transthoracic Echocardiographic | | Report+ + | | Final Impressions: | | | | 1. The left ventricular | | size is normal. 2. The LV function is normal. | | 3. The global longitudinal strain is | | -16.8 % and the LVEF is 57.0 %. | | 4. Right ventricular size, thickness and function are | | normal. 5. No significant valvular abnormalities seen. | | 6. Moderately dilated left atrium. | | 7. There is mild dilatation of the ascending aorta. (See comments below). | | 8. | | Compared to the most recent exam dated 08/06/2019, the LVEF and mean GLS have | | slightly decreased, but are still within normal limit. This can be seen in pat | | | | | | + + LV | | Function & Strain Data Table:+ + +-------+-------+ Study Date: | | LVEF (Biplane) GLS 3D LVEF + + +-------+-------+ 12/09/2019 | | 57.0 % -16.8 % 52.0 % + + +-------+-------+ 08/06/2019 | | 67.0 % -19.5 % 57.0 % + + +-------+-------+ Description | | of Findings: Cardiac Rhythm: Normal sinus rhythm.Left Ventricle: The left ventricular | | size is normal. Visually estimated left ventricular ejection fraction is 55 - 60%. The | | global longitudinal strain is -16.8 %. The LV diastolic filling pattern is normal. The | | ejection fraction is 57.0 % as measured by Garcia's biplane method. The LV function is | | normal.Left Ventricular Wall Motion: Left ventricular systolic thickening is normal in | | all segments.Atria: Left atrial size is moderately dilated. Normal right atrium.Right | | Ventricle: Right ventricular size, thickness and function are normal. TAPSE measures | | 2.8cm. The RV TDI s' velocity is 12cm/sec.Aortic Valve: The aortic valve is trileaflet | | and normal in structure and function. Trace aortic valve regurgitation.Mitral Valve: The | | mitral valve is structurally normal. No evidence of mitral valve stenosis. Trace mitral | | valve regurgitation.Tricuspid Valve: The tricuspid valve is structurally normal. Trace | | tricuspid regurgitation. The tricuspid regurgitant velocity is 2.11 m/s, and with an | | assumed right atrial pressure of 5 mmHg, the estimated right ventricular systolic | | pressure is normal at 22.8 mmHg.Pulmonic Valve: The pulmonic valve is structurally | | normal. Trace pulmonary valve regurgitation.Aorta: There is mild dilatation of the | | ascending aorta.Venous: Inferior vena cava is normal with normal inspiratory | | collapse.Pericardium: No pericardial effusion is seen.2D Measurements | | Doppler Measurements 2D NL Values Aortic MitralLVID(d) 4.60 | | (3.5-5.7cm) Max Raul 1.64 Peak E 0.73 cm | | m/s m/sLVID(s) 3.34 Mean grad 6.6 Peak A 0.60 | | cm mmHg m/sIVS(d) 1.13 (0.6-1.1cm) | | LVOT Raul 1.19 E/A Ratio 1.22 cm m/sLVPW(d) | | 1.05 (0.6-1.1cm) LVOT VTI 0.268 TDI (E/e') 12.2 cm | | mLA A/Ps 2D 4.49 (2.7-3.9cm) LVOT Diam 2.26 MV mn gd cm | | cmLA vol A/L 23.4 (16-34) LVOT SV 52.2 MR EROindex ml/m | | indexed ml/m | | LA vol MOD 46.1 (40-73ml) Tricuspid PulmonicBP ml TR | | Vmax 2.11 PV VmaxLA vol MOD 22.5 (16-34) m/sindex ml/m | | RA Press 5 RVOT VTILVEDV 48.68 | | mmHgindex ml/m | | RVSP 23 PV mn gdBiplane EF 57.0 % mmHgGLS | | % -16.8 % Aorta: Index: | | Ao Sinus 2.97 (2.1-3.5cm) cm | | Asc Ao 4.00 19.5 | | (prox) cm mm/m | | Evaluation of chamber size and geometry is accomplished through the incorporation of | | linear, volumetric, and indexed values Report electronically signed by: [id number] Eric | | Riley WORTHY, PhD (12/09/2019, 2:48:53 PM) Final | |stenosis. Trace mitral valve regurgitation. | |Tricuspid Valve: The tricuspid valve is structurally normal. Trace tricuspid | |regurgitation. The tricuspid regurgitant velocity is 2.11 m/s, and with an assumed | |right atrial pressure of 5 mmHg, the estimated right ventricular systolic pressure is | | normal at 22.8 mmHg. | |Pulmonic Valve: The pulmonic valve is structurally normal. Trace pulmonary valve | |regurgitation. | |Aorta: There is mild dilatation of the ascending aorta. | |Venous: Inferior vena cava is normal with normal inspiratory collapse. | |Pericardium: No pericardial effusion is seen. | |2D Measurements Doppler Measurements | | | | 2D NL Values Aortic Mitral | |LVID(d) 4.60 (3.5-5.7cm) Max Raul 1.64 Peak E 0.73 | | cm m/s m/s | |LVID(s) 3.34 Mean grad 6.6 Peak A 0.60 | | cm mmHg m/s | |IVS(d) 1.13 (0.6-1.1cm) LVOT Raul 1.19 E/A Ratio 1.22 | | cm m/s | |LVPW(d) 1.05 (0.6-1.1cm) LVOT VTI 0.268 TDI (E/e') 12.2 | | cm m | |LA A/Ps 2D 4.49 (2.7-3.9cm) LVOT Diam 2.26 MV mn gd | | cm cm | |LA vol A/L 23.4 (16-34) LVOT SV 52.2 MR ERO | |index ml/m indexed ml/m | |LA vol MOD 46.1 (40-73ml) Tricuspid Pulmonic | |BP ml TR Vmax 2.11 PV Vmax | |LA vol MOD 22.5 (16-34) m/s | |index ml/m RA Press 5 RVOT VTI | |LVEDV 48.68 mmHg | |index ml/m RVSP 23 PV mn gd | |Biplane EF 57.0 % mmHg | |GLS % -16.8 | | % Aorta: Index: | | Ao Sinus 2.97 (2.1-3.5cm) | | cm | | Asc Ao 4.00 19.5 | | (prox) cm mm/m | |Evaluation of chamber size and geometry is accomplished through the incorporation of | |linear, volumetric, and indexed values | | | |Report electronically signed by: [id number] Eric Lin MD, PhD (12/09/2019, 2:48:53 | | PM) | | | | | | | | Final | + + + + + + + | Performing | Address | City/State/Zipcode | Phone Number | | Organization | | | | + + + + + | [facility] | [address] [facility] | [place], [place] | | | CARDIOLOGY | [address] | [address] | | + + + + + MRI ABDOMEN WO CONTRAST (12/07/2019 12:11 PM PDT) + + | Specimen | + + | | + + + + + | Narrative | Performed At | + + + | EXAM: Abdomen MRI without intravenous contrast. HISTORY: | [facility] | | Splenomegaly myelofibrosis COMPARISON: None available | RADIOLOGY VOICE | | TECHNIQUE: Multiplanar MRI of the abdomen was performed without | RECOGNITION 2 | | intravenous contrast. FINDINGS: LIVER: T2 dark signal | | | throughout the liver compatible with iron deposition. No focal hepatic | | | lesion identified. BILIARY: Gallbladder not visualized. No intra or | | | extrahepatic biliary ductal dilatation. PANCREAS: Atrophic pancreas. | | | Ductal dilatation throughout, possibly with filling defects in the | | | duct in the pancreatic head with duct is poorly seen. SPLEEN: The | | | spleen measures 13.2 x 8.5 x 11 cm with diffuse T2 dark signal | | | compatible with iron deposition. ADRENALS: Unremarkable. KIDNEYS: | | | Unremarkable. GI TRACT: Visualized portions are unremarkable. | | | PERITONEUM: No free air or fluid. LYMPH NODES: No lymphadenopathy. | | | VESSELS: Unremarkable. BONES AND SOFT TISSUES: T1 and T2 dark | | | bone marrow without focal lesion. IMPRESSION: T2 dark signal | | | within the liver and spleen, compatible with iron deposition. T1 | | | and T2 dark marrow signal can be seen in the setting of myelofibrosis. | | | Spleen measures 13.2 x 8.5 x 11 cm, with an approximate volume of | | | 750 cc. Diffuse and irregular pancreatic ductal dilatation with | | | apparent filling defects in the pancreatic head where the duct is | | | poorly seen. Findings may reflect chronic pancreatitis or main duct | | | IPMN, versus obstructing lesion in the pancreatic head. Multi phase CT | | | pancreas is recommended for further evaluation. I have personally | | | reviewed the images and, if necessary, edited the report. I agree | | | with the report as now presented. Final signature: Shahla Rae | | | MD Mark 12/08/2019 8:48 AM Preliminary: Shahla Flores MD | | | Dictation initiated: Shahla Flores MD 12/08/2019 8:30 AM | | + + + + + | Procedure Note | + + | Service Account, [employer] Res In Interface - 12/08/2019 8:49 AM PDT EXAM: Abdomen MRI | | without intravenous contrast. HISTORY: Splenomegaly myelofibrosis COMPARISON: None | | available TECHNIQUE: Multiplanar MRI of the abdomen was performed without intravenous | | contrast. FINDINGS: LIVER: T2 dark signal throughout the liver compatible with iron | | deposition. No focal hepatic lesion identified.BILIARY: Gallbladder not visualized. No | | intra or extrahepatic biliary ductal dilatation.PANCREAS: Atrophic pancreas. Ductal | | dilatation throughout, possibly with filling defects in the duct in the pancreatic head | | with duct is poorly seen. SPLEEN: The spleen measures 13.2 x 8.5 x 11 cm with diffuse T2 | | dark signal compatible with iron deposition.ADRENALS: Unremarkable.KIDNEYS: | | Unremarkable.GI TRACT: Visualized portions are unremarkable.PERITONEUM: No free air or | | fluid. LYMPH NODES: No lymphadenopathy.VESSELS: Unremarkable. BONES AND SOFT TISSUES: T1 | | and T2 dark bone marrow without focal lesion. IMPRESSION: T2 dark signal within the | | liver and spleen, compatible with iron deposition. T1 and T2 dark marrow signal can be | | seen in the setting of myelofibrosis. Spleen measures 13.2 x 8.5 x 11 cm, with an | | approximate volume of 750 cc. Diffuse and irregular pancreatic ductal dilatation with | | apparent filling defects in the pancreatic head where the duct is poorly seen. Findings | | may reflect chronic pancreatitis or main duct IPMN, versus obstructing lesion in the | | pancreatic head. Multi phase CT pancreas is recommended for further evaluation. I have | | personally reviewed the images and, if necessary, edited the report. I agree with the | | report as now presented. Final signature: Shahla Flores MD 12/08/2019 8:48 AM | | Preliminary: Shahla Flores MD Dictation initiated: Shahla Flores MD | | 12/08/2019 8:30 AM | | | |BONES AND SOFT TISSUES: T1 and T2 dark bone marrow without focal lesion. | | | |IMPRESSION: | | | |T2 dark signal within the liver and spleen, compatible with iron deposition. | | | |T1 and T2 dark marrow signal can be seen in the setting of myelofibrosis. | | | |Spleen measures 13.2 x 8.5 x 11 cm, with an approximate volume of 750 cc. | | | |Diffuse and irregular pancreatic ductal dilatation with apparent filling defects in the [place] creatic head where the duct is poorly seen. Findings may reflect chronic pancreatitis or joo n duct IPMN, versus obstructing lesion | |in the pancreatic head. Multi phase CT pancreas is recommended for further evaluation. | | | |I have personally reviewed the images and, if necessary, edited the report. I agree with th e report as now presented. | | | |Final signature: Shahla Flores MD 12/08/2019 8:48 AM | |Preliminary: Shahla Flores MD | |Dictation initiated: Shahla Flores MD 12/08/2019 8:30 AM | + + + +---------+ + + | Performing | Address | City/State/Zipcode | Phone Number | | Organization | | | | + +---------+ + + | [facility] | | | | | VOICE RECOGNITION 2 | | | | + +---------+ + + [facility] - COMPLETE METABOLIC SET (12/04/2019 1:42 PM PDT) + +---------+ + + + | Component | Value | Ref Range | Performed | Pathologist | | | | | At | Signature | + +---------+ + + + | GLUCOSE, | 110 (H) | 70 - 99 mg/dL | [facility] | | | PLASMA | | | LABORATORY | | | (LAB) | | | SERVICES, | | | | | | CORE | | + +---------+ + + + | BUN, PLASMA | 14 | 6 - 20 mg/dL | [facility] | | | (LAB) | | | LABORATORY | | | | | | SERVICES, | | | | | | CORE | | + +---------+ + + + | CREATININE | 0.66 | 0.60 - 1.10 | [facility] | | | PLASMA | | mg/dL | LABORATORY | | | (LAB) | | | SERVICES, | | | | | | CORE | | + +---------+ + + + | EGFR | >60 | >60 mL/min | [facility] | | | - | | | LABORATORY | | | LATVIAN | | | SERVICES, | | | | | | CORE | | + +---------+ + + + | EGFR NON | >60 | >60 mL/min | [facility] | | | -[facility] | | | LABORATORY | | | RICAN | | | SERVICES, | | | | | | CORE | | + +---------+ + + + | SODIUM, | 139 | 136 - 145 | [facility] | | | PLASMA | | mmol/L | LABORATORY | | | (LAB) | | | SERVICES, | | | | | | CORE | | + +---------+ + + + | POTASSIUM, | 3.3 (L) | 3.4 - 5.0 | [facility] | | | PLASMA | | mmol/L | LABORATORY | | | (LAB) | | | SERVICES, | | | | | | CORE | | + +---------+ + + + | CHLORIDE, | 106 | 97 - 108 mmol/L | [facility] | | | PLASMA | | | LABORATORY | | | (LAB) | | | SERVICES, | | | | | | CORE | | + +---------+ + + + | TOTAL CO2, | 28 | 21 - 32 mmol/L | [facility] | | | PLASMA | | | LABORATORY | | | (LAB) | | | SERVICES, | | | | | | CORE | | + +---------+ + + + | CALCIUM, | 8.2 (L) | 8.6 - 10.2 | [facility] | | | PLASMA | | mg/dL | LABORATORY | | | (LAB) | | | SERVICES, | | | | | | CORE | | + +---------+ + + + | CALCIUM(ALB | 8.7 | 8.6 - 10.2 | [facility] | | | CORRECTED) | | mg/dL | LABORATORY | | | | | | SERVICES, | | | | | | CORE | | + +---------+ + + + | BILIRUBIN | 0.6 | 0.3 - 1.2 mg/dL | [facility] | | | TOTAL | | | LABORATORY | | | | | | SERVICES, | | | | | | CORE | | + +---------+ + + + | TOTAL | 6.7 | 6.4 - 8.2 g/dL | [facility] | | | PROTEIN, | | | LABORATORY | | | PLASMA | | | SERVICES, | | | (LAB) | | | CORE | | + +---------+ + + + | ALBUMIN, | 3.4 (L) | 3.5 - 4.7 g/dL | [facility] | | | PLASMA | | | LABORATORY | | | (LAB) | | | SERVICES, | | | | | | CORE | | + +---------+ + + + | ALK PHOS | 351 (H) | 53 - 141 U/L | [facility] | | | | | | LABORATORY | | | | | | SERVICES, | | | | | | CORE | | + +---------+ + + + | AST(SGOT) | 17 | <=41 U/L | [facility] | | | | | | LABORATORY | | | | | | SERVICES, | | | | | | CORE | | + +---------+ + + + | ALT (SGPT) | 51 | <=60 U/L | [facility] | | | | | | LABORATORY | | | | | | SERVICES, | | | | | | CORE | | + +---------+ + + + | ANION GAP | 5 | 4 - 11 mmol/L | [facility] | | | | | | LABORATORY | | | | | | SERVICES, | | | | | | CORE | | + +---------+ + + + | ANION | 6 | 4 - 11 mmol/L | [facility] | | | GAP(ALB | | | LABORATORY | | | CORRECTED) | | | SERVICES, | | | | | | CORE | | + +---------+ + + + | POTASSIUM | No Hemo | | [facility] | | | CMNT | | | LABORATORY | | | | | | SERVICES, | | | | | | CORE | | + +---------+ + + + | BILI T CMNT | No Hemo | | [facility] | | | | | | LABORATORY | | | | | | SERVICES, | | | | | | CORE | | + +---------+ + + + | AST CMNT | No Hemo | | [facility] | | | | | | LABORATORY | | | | | | SERVICES, | | | | | | CORE | | + +---------+ + + + | BUN/CREATIN | 21 | 8 - 25 | [facility] | | | INE RATIO | | | LABORATORY | | | | | | SERVICES, | | | | | | CORE | | + +---------+ + + + | GLOBULIN | 3.3 | 2.3 - 3.5 gm/dL | [facility] | | | LVL | | | LABORATORY | | | | | | SERVICES, | | | | | | CORE | | + +---------+ + + + | ALBUMIN/ASAH | 1.0 | 0.7 - 2.8 | [facility] | | | BULIN RATIO | | | LABORATORY | | | | | | SERVICES, | | | | | | CORE | | + +---------+ + + + + + | Specimen | + + | Blood - Blood | | (substance) | + + + + + | Narrative | Performed At | + + + | GFR is estimated using the MDRD equation recommended by the National | [facility] | | Kidney Disease Education Program. Estimated GFR Interpretive | LABORATORY | | Information: <60 mL/min/1.73 sq m Chronic Kidney | SERVICES, CORE | | Disease <15 mL/min/1.73 sq m Kidney Failure | | | Estimated GFR greater than 60 mL/min/1.73 sq m is of limited clinical | | | value. The MDRD equation is not valid in the following situations: | | | - Patients under 18 years [...] | + + + + + | [facility] | [address] | [place] [address] | | | SERVICES, CORE | [address] | | | + + + + + LIPID SET (TRIG, T CHOL, HDL, CALC LDL) (12/04/2019 1:42 PM PDT) + +---------+ + + + | Component | Value | Ref Range | Performed | Pathologist | | | | | At | Signature | + +---------+ + + + | CHOLESTEROL | 188 | <200 mg/dL | [facility] | | | (LAB) | | | LABORATORY | | | | | | SERVICES, | | | | | | CORE | | + +---------+ + + + | TRIGLYCERID | 151 (H) | <150 mg/dL | [facility] | | | ES | | | LABORATORY | | | | | | SERVICES, | | | | | | CORE | | + +---------+ + + + | HDL | 46 | >40 mg/dL | [facility] | | | CHOLESTEROL | | | LABORATORY | | | | | | SERVICES, | | | | | | CORE | | + +---------+ + + + | HDL CMNT | No Hemo | | [facility] | | | | | | LABORATORY | | | | | | SERVICES, | | | | | | CORE | | + +---------+ + + + | LDL | 112 (H) | <100 mg/dL | [facility] | | | CHOLESTEROL | | | LABORATORY | | | , | | | SERVICES, | | | CALCULATED | | | CORE | | + +---------+ + + + | VLDL | 30 | <31 mg/dL | [facility] | | | CHOLESTEROL | | | LABORATORY | | | , | | | SERVICES, | | | CALCULATED | | | CORE | | + +---------+ + + + | NON-HDL | 142 (H) | <130 mg/dL | [facility] | | | CHOLESTEROL | | | LABORATORY | | | | | | SERVICES, | | | | | | CORE | | + +---------+ + + + + + | Specimen | + + | Blood - Blood | | (substance) | + + + + + | Narrative | Performed At | + + + | Cholesterol Reference Range: Desirable: <200 mg/dL | [facility] | | Borderline High: 200 - 239 mg/dL | LABORATORY | | High: >=240 mg/dL LDL Cholesterol Reference | SERVICES, CORE | | Range: Optimal: <100 mg/dL Near | | | Optimal: 100-129 mg/dL Borderline High: 130-159 mg/dL | | | High: 160-189 mg/dL Very High: | | | >=190 mg/dL non-HDL Cholesterol Reference Range: | | | Optimal: <130 mg/dL Near Optimal: 130-159 | | | mg/dL Borderline High: 160-189 mg/dL | | | High: 190-209 mg/dL Very High: >=210 mg/dL | | | Triglyceride Reference Range: Normal: <150 | | | mg/dL Borderline High: 150-199 mg/dL High: | | | 200-499 mg/dL Very High: >=500 mg/dL HDL Reference | | | Range: High Risk: <40 mg/dL Desirable: | | | >=60 mg/dL | | + + + + + + + + | Performing | Address | City/State/Zipcode | Phone Number | | Organization | | | | + + + + + | [facility] | [address] | [place] [address] | | | SERVICES, CORE | [address] | | | + + + + + URIC ACID, PLASMA (12/04/2019 1:42 PM PDT) + +-------+ + + + | Component | Value | Ref Range | Performed | Pathologist | | | | | At | Signature | + +-------+ + + + | URIC ACID, | 4.1 | 2.5 - 6.2 mg/dL | [facility] | | | PLASMA | | | LABORATORY | | | (LAB) | | | SERVICES, | | | | | | CORE | | + +-------+ + + + + + | Specimen | + + | Blood - Blood | | (substance) | + + + + + + + | Performing | Address | City/State/Zipcode | Phone Number | | Organization | | | | + + + + + | [facility] | [address] | [place] [address] | | | SERVICES, CORE | [address] | | | + + + + + [facility] - PHOSPHORUS, PLASMA (12/04/2019 1:42 PM PDT) + +-------+ + + + | Component | Value | Ref Range | Performed | Pathologist | | | | | At | Signature | + +-------+ + + + | PHOSPHORUS, | 3.8 | 2.4 - 4.7 mg/dL | [facility] | | | PLASMA | | | LABORATORY | | | (LAB) | | | SERVICES, | | | | | | CORE | | + +-------+ + + + + + | Specimen | + + | Blood - Blood | | (substance) | + + + + + + + | Performing | Address | City/State/Zipcode | Phone Number | | Organization | | | | + + + + + | [facility] | [address] | [place] [address] | | | SERVICES, CORE | [address] | | | + + + + + [facility] - LDH TOTAL, PLASMA (12/04/2019 1:42 PM PDT) + +---------+ + + + | Component | Value | Ref Range | Performed | Pathologist | | | | | At | Signature | + +---------+ + + + | LD TOTAL, | 292 (H) | <=250 U/L | [facility] | | | PLASMA | | | LABORATORY | | | | | | SERVICES, | | | | | | CORE | | + +---------+ + + + | LD CMNT | No Hemo | | [facility] | | | | | | LABORATORY | | | | | | SERVICES, | | | | | | CORE | | + +---------+ + + + + + | Specimen | + + | Blood - Blood | | (substance) | + + + + + + + | Performing | Address | City/State/Zipcode | Phone Number | | Organization | | | | + + + + + | [facility] | [address] | [place] [address] | | | SERVICES, CORE | [address] | | | + + + + + [facility] - BILIRUBIN, DIRECT (12/04/2019 1:42 PM PDT) + +---------+ + + + | Component | Value | Ref Range | Performed | Pathologist | | | | | At | Signature | + +---------+ + + + | BILIRUBIN | 0.1 | 0.0 - 0.3 mg/dL | [facility] | | | DIRECT | | | LABORATORY | | | | | | SERVICES, | | | | | | CORE | | + +---------+ + + + | MACY Agarwal CMNT | No Hemo | | [facility] | | | | | | LABORATORY | | | | | | SERVICES, | | | | | | CORE | | + +---------+ + + + + + | Specimen | + + | Blood - Blood | | (substance) | + + + + + + + | Performing | Address | City/State/Zipcode | Phone Number | | Organization | | | | + + + + + | [facility] | [address] | [place] [address] | | | SERVICES, CORE | [address] | | | + + + + + [facility] - MAGNESIUM, PLASMA (12/04/2019 1:42 PM PDT) + +-------+ + + + | Component | Value | Ref Range | Performed | Pathologist | | | | | At | Signature | + +-------+ + + + | MAGNESIUM,P | 2.1 | 1.6 - 2.6 mg/dL | [facility] | | | LASMA | | | LABORATORY | | | | | | SERVICES, | | | | | | CORE | | + +-------+ + + + + + | Specimen | + + | Blood - Blood | | (substance) | + + + + + + + | Performing | Address | City/State/Zipcode | Phone Number | | Organization | | | | + + + + + | [facility] | [address] | [place] [address] | | | SERVICES, CORE | [address] | | | + + + + + APTT (ACT. PART. THROMBO TIME) (12/04/2019 1:42 PM PDT) + +-------+ + + + | Component | Value | Ref Range | Performed | Pathologist | | | | | At | Signature | + +-------+ + + + | APTT | 33.7 | 26.0 - 36.0 | [facility] | | | | | seconds | LABORATORY | | | | | | SERVICES, | | | | | | CORE | | + +-------+ + + + + + | Specimen | + + | Blood - Blood | | (substance) | + + + + + | Narrative | Performed At | + + + | APTT values for monitoring heparin therapy may be affected by | [facility] | | specimens processed >1 hour after collection. APTT Therapeutic | LABORATORY | | Range: (75 - 120) sec Heparin | SERVICES, CORE | | levels of 0.35 - 0.7 U/mL | | + + + + + + + + | Performing | Address | City/State/Zipcode | Phone Number | | Organization | | | | + + + + + | [facility] | [address] | [place] [address] | | | SERVICES, CORE | [address] | | | + + + + + INR (12/04/2019 1:42 PM PDT) + +-------+ + + + | Component | Value | Ref Range | Performed | Pathologist | | | | | At | Signature | + +-------+ + + + | INR | 1.08 | 0.90 - 1.20 INR | [facility] | | | | | | LABORATORY | | | | | | SERVICES, | | | | | | CORE | | + +-------+ + + + + + | Specimen | + + | Blood - Blood | | (substance) | + + + + + | Narrative | Performed At | + + + | INR Therapeutic ranges for full anticoagulation: INR for Venous | [facility] | | Thromboembolism (2.0 - 3.0) INR INR for most | LABORATORY | | patients with mech. valves (2.5 - 3.5) INR | SERVICES, CORE | + + + + + + + + | Performing | Address | City/State/Zipcode | Phone Number | | Organization | | | | + + + + + | [facility] | [address] | [place] [address] | | | SERVICES, CORE | [address] | | | + + + + + documented in this encounter Visit Diagnoses + + | Diagnosis | + + | MF (myelofibrosis) (HCC) - Primary Myelofibrosis | + + | Adverse effect of chemotherapy, initial encounter | + + | On antineoplastic chemotherapy | + + | Memory change Memory loss | + + documented in this encounter
--- OUTSIDE RECORDS SUMMARY | ~2019-12-27 | XMS | Encounter Summary ---
Demographics + + + | Address | [address] | | | [place] [address] | + + + | Home Phone | | + + + | Preferred Language | Unknown | + + + | Marital Status | | + + + | Jew Affiliation | LUT | + + + | Race | White | + + + | Ethnic Group | Not or | + + + Author + + + | Author | [facility] | + + + | Organization | [facility] | + + + | [...] Team Providers + +------+ + | Care Trade Mark Examiner Name | Role | Phone | + +------+ + | Oz Rodriguez MD | PCP | | + +------+ + Encounter Details +--------+ + + + + | Date | Type | Department | Care Team | Description | +--------+ + + + + | 08/31/ | Pharmacy | [facility] | | | | 2020 | Visit | [address] | | | | | | [address] | | | | | | [place] [address] | | | | | | [phone] | | | +--------+ + + + [...] in contact | No / Unsure | 09/04/2019 10:39 AM | | with someone who was [...] | | | | | | [place] [address] | | | | | | [phone] | | | | | | | | +--------+ + + + + | 01/14/ | Appointment | Hematology & | Onc, [address] | | | 2019 | | Oncology | [place] | | | | | | [place] [address] | | +--------+ + + + + documented as of this encounter Visit Diagnoses Not on filedocumented in this encounter"
--- OUTSIDE RECORDS SUMMARY | ~2019-12-27 | XMS | Encounter Summary ---
Demographics + + + | Address | [address] | | | [place] [address] | + + + | Home Phone | | + + + | Preferred Language | Unknown | + + + | Marital Status | | + + + | Jehovah'S Witness Affiliation | LUT | + + + [...] Team Providers + +------+ + | Care Hay Stacker Name | Role | Phone | + [...] | +--------+ + + + + | 12/10/ | Documentati | [facility] | Erasto Villa | Research | | 2020 | on | Clinics at S | [address] | Documentation | | | | [address] [place], | | | | | [facility] | [place] [address] | | | | | [facility], | | | | | | [address] | | | | | | [place], [place] | | | | | | [address] | | | | | | [phone] | | | +--------+ + + + [...] in contact | No / Unsure | 12/09/2019 7:48 AM | | with someone who was [...] | | | | | | [place] [address] | | | | | | [phone] | | | | | | | | +--------+ + + + + | 01/14/ | Appointment | Hematology & | Onc, [address] | | | 2019 | | Oncology | [place], | | | | | | [place] [address] | | +--------+ + + + + documented as of this encounter Visit Diagnoses Not on filedocumented in this encounter"
--- OUTSIDE RECORDS SUMMARY | ~2019-12-27 | XMS | Encounter Summary ---
Demographics + + + | Address | [address] | | | [place] [address] | + + + | Home Phone | | + + + | Preferred Language | Unknown | + + + | Marital Status | | + + + | Faith Affiliation | LUT | + + + | Race | White | + + + | Ethnic Group | Not or | + + + Author + + + | Organization | Unknown | + + + | Address | [...] Team Providers + +------+ + | Care Regional Operations Director Name | Role | Phone | + +------+ + | SilverioMargarita crawford INVAS TECH | PCP | | + +------+ + Encounter Details +--------+--------+ + + + | Date | Type | Department | Care Team | Description | +--------+--------+ + + + | 11/09/ | Travel | | | | | 2020 | | | | | +--------+--------+ + + + Social History + +-------+ [...] [address] | | | | | | [place], | | | | | | [place] [address] | | | | | | [phone] | | | | | | | | +--------+ + + + + | 01/14/ | Appointment | Hematology & | Onc, [address] | | | 2019 | | Oncology | [place] | | | | | | [place] [address] | | +--------+ + + + + documented as of this encounter Visit Diagnoses Not on filedocumented in this encounter"
--- OUTSIDE RECORDS SUMMARY | ~2019-12-27 | XMS | Encounter Summary ---
Demographics + + + | Address | [address] | | | [place] [address] | + + + | Home Phone | | + + + | Preferred Language | Unknown | + + + | Marital Status | | + + + | Zoroastrianism Affiliation | LUT | + + + | Race | White | + + + | Ethnic Group | Not or | + + + Author + + + | Author | [facility] | + + + | Organization | [facility] | + + + | Address [...] Team Providers + +------+ + | Care Roller Skate Repairer Name | Role | Phone | + [...] | +--------+ + + + + | 12/08/ | Documentati | [facility] | Daysi Mccauley MD | Research | | 2020 | on | Clinics at S | [address] [facility] [address] | Documentation | | | | [place] [address] [place], | | | | | [facility] | [place] [address] | | | | | Health and Healing, | [phone] | | | | | [address] | | | | | | [place], [place] | | | | | | [address] | | | | | | [phone] | | | +--------+ + + + [...] | 01/14/ | Office | Hematology | Dyasi Mccauley MD | | | 2019 | Visit | Malignancy | [address] | | | | | | [place], | | | | | | [place] [address] | | | | | | [phone] | | | | | | | | +--------+ + + + + | 01/14/ | Appointment | Hematology & | Onc, Gen [address] | | | 2019 | | Oncology | [place], | | | | | | [place] [address] | | +--------+ + + + + documented as of this encounter Visit Diagnoses Not on filedocumented in this encounter"
--- OUTSIDE RECORDS SUMMARY | ~2019-12-27 | XMS | Encounter Summary ---
Demographics + + + | Address | [address] | | | [place] [address] | + + + | Home Phone | | + + + | Preferred Language | Unknown | + + + | Marital Status | | + + + | Rastafari Affiliation | LUT | + + + | Race | White | + + + | Ethnic Group | Not or | + + + Author + + + | Author | [facility] | + + + | Organization | [facility] | + + + | [...] Team Providers + +------+ + | Care Coach Driver Name | Role | Phone | + +------+ + | Oz Rodriguez MD | PCP | | + +------+ + Encounter Details +--------+ + + + + | Date | Type | Department | Care Team | Description | +--------+ + + + + | 11/17/ | Pharmacy | [facility] | | | | 2020 | Visit | [address] | [address] | [address] | [address] | | | | | | [place] [address] | | | | | | [phone] | | | +--------+ + + + [...] | | | | | | [place] [address] | | | | | | [phone] | | | | | | | | +--------+ + + + + | 01/14/ | Appointment | Hematology & | Onc, Gen [address] | | | 2019 | | Oncology | [place] | | | | | | [place] [address] | | +--------+ + + + + documented as of this encounter Visit Diagnoses Not on filedocumented in this encounter"
--- OUTSIDE RECORDS SUMMARY | ~2019-12-27 | XMS | Encounter Summary ---
Demographics + + + | Address | [address] | | | [place] [address] | + + + | Home Phone | | + + + | Preferred Language | Unknown | + + + | Marital Status | | + + + | Congregational Affiliation | LUT | + + + | Race | White | + + + | Ethnic Group | Not or | + + + Author + + + | Author | [facility] | + + + | Organization | [facility] | + + + | [...] Team Providers + +------+ + | Care Geological E Logger Name | Role | Phone | + +------+ + | Margarita Patterson | PCP | | + +------+ + Reason for Visit + + + | Reason | Comments | + + + | Lab Draw | | + + + | Dressing change | | + + + | Central Line Care | | + + + | Transfusion | PRBC x2 units | + + + | Medication | PO Tylenol | | Administration | | + + + Encounter Details +--------+ + + + + | Date | Type | Department | Care Team | Description | +--------+ + + + + | 08/25/ | Hospital | [facility] | | | | 2020 | Encounter | [facility] at S | | | | | | [facility] [address] | | | | | | [facility] | | | | | | [facility], | | | | | | [address] | | | | | | [place], [place] | | | | | | [address] | | | | | | [phone] | | | +--------+ + + + [...] + + + | Blood Pressure | 164/70 | 08/26/2019 3:29 PM | | | | | PDT | | + + + + + | Pulse | 65 | 08/26/2019 3:29 PM | | | | | PDT | | + + + + + | Temperature | 37.2 C (98.9 F) | 08/26/2019 3:29 PM | | | | | PDT | | + + + + + | Respiratory Rate | 16 | 08/26/2019 3:29 PM | | | | | PDT | | + + + + + | Oxygen Saturation | 98% | 08/26/2019 3:29 PM | | | | | PDT | | + + + + + | Inhaled Oxygen | - | - | | | Concentration | | | | + + + + + | Weight | 106.1 kg (234 lb) | 08/26/2019 9:45 AM | | | | | PDT | | + + + + + | Height | - | - | | + + + + + | Body Mass Index | 37.88 | 08/05/2019 10:34 PM | | | [...] documented as of this encounter Progress Notes Tenisha Hussein RN - 08/26/2019 10:00 AM PDTINFUSION NURSING NOTE Allergies: Fidelia has No Known Allergies. Narrative: Pt arrives to clinic via wc able to transfer self. Nursing Assessment: Fever/Chills/Infection: Yes SOB / Cough: Yes Dizziness/Lightheaded/Fatigue: No Signs/Symptoms Bleeding: No, however, low plt Neuropathy: No Mucositis: No Nausea/Vomiting: Yes - intermittent Appetite: Adequate per pt. Diarrhea/Constipation: No PO Fluid Intake: Adequate per pt. Rash/Skin sores/Edema: No Urinary Issues: No Pain: Yes - for past 8 weeks in legs, aching. Currently 4-710. Taking Celecoxib, notifi ed that it is not well controlled, per MD pt to take 650 mg of Tylenol now, and she is to st art taking 650 mg Tylnol PO at home Q 6 hours. Instructions printed for pt. *Tylenol given in clinic with good effect, pain down to 2/10, pt also able to Vascular Access: PICC accessed per protocol. Good blood return noted. Appropriate waste discarded. Labs dra jewell and sent. PICC pulse flushed with 20 mL NS. PICC intact to left upper extremity without erythema or induration. Dressing removed, skin intact. No s/s exit site infection. 3 cm line exposed. Using a PICC Dressing Change kit a nd sterile technique, site cleansed with Chloraprep. Skin prep applied prior to dressing ap plication. Biopatch applied with SorbaView dressing. Positive pressure valves changed to e ach port. All lumens pulse flushed with 10 mL NS. Patient tolerated procedure without diffi culty. Per Orders Infusion Plan: ~No electrolyte replacements indicated ~Transfusions: 2 units PRBC administered per protocol for Hct of <21%. Pt tolerated transfu sions well today. Supportive Plan: ~No orders Chemo Plan: None, per Dr. Mccauley to start next week. Patient was reminded to call clinic with temp > 100.4, chills, s/s of bleeding or uncontrol led N/V/D/C. Patient d/c d via , MA brought pt downstairs to meet . *Printed Instructions given to patient per Dr. Mccauley: Andrew Mistry, Today your blood levels showed that you needed two units of blood. You received these two u nits and one dose of Tylenol (650 mg). Your next dose of Tylenol is due at 6 pm. Here is a list of instructions from Dr. Mccauley 1. Start taking Tylenol every 6 hours in addition to the Celecoxib that you are already holli ing. Ensure you do not take more than is prescribed, Tylenol can be life-threatening if you take more than 4 gm in 24 hours. 2. Continue to monitor your temperature two times a day, once in the morning and [facility]. If you have a temp >100.4 F, immediately call the numbers we provided you today on the pink and yellow cards. 3. Continue to monitor yourself for signs and symptoms of infection such as a sore throat, cough, runny nose. If you experience any of these call the numbers provided you today. 4. Low platelets: your platelets were not low enough to get a transfusion today, however, y ou still need to monitor yourself for signs and symptoms of bleeding: more bruising, pink or red in your urine, bleeding scratch, abdominal pain. If you experience anything of these pl ease call our numbers immediately to speak with our triage nurse or holistic nutritionist doctor and consi shazia going to urgent care. documented in thi s encounter Plan of Treatment +--------+ + + [...] | | | | | [address] [place], | | | | | | [place] [address] | | | | | | [phone] | | | | | | | | +--------+ + + + + | 01/14/ | Appointment | Hematology & | Onc, Gen [address] | | | 2020 | | Oncology | [place], | | | | | | [place] [address] | | +--------+ + + + + + + +--------+ + + | Name | Type | Priori | Associated Diagnoses | Order Schedule | | | | ty | | | + + +--------+ + + | MANUAL DIFFERENTIAL | Lab - | Routin | Pancytopenia (HCC) | 08/26/2019 until | | | [facility] | e | | discontinued, 1 | | | Performable | | | completed | | | s | | | | + + +--------+ + + | RBC MORPHOLOGY | Lab - | Routin | Pancytopenia (HCC) | 08/26/2019 until | | | [facility] | e | | discontinued, 1 [...] + + | HB-LAB | Routin | 08/26/2019 | Pancytopenia (HCC) | Results for this | | CROSSMATCH,ELECTRONI | e | 10:34 AM | | procedure are in the | | C | | PDT | | results section. | + +--------+ + + + | HB-LAB | Routin | 08/26/2019 | Pancytopenia (HCC) | Results for this | | CROSSMATCH,ELECTRONI | e | 10:32 AM | | procedure are in the | | C | | PDT | | results section. | + +--------+ + + + | [facility] - MAGNESIUM, | Routin | 08/26/2019 | Pancytopenia (HCC) | Results for this | | PLASMA | e | 9:45 AM | | procedure are in the | | | | PDT | | results section. | + +--------+ + + + | [facility] - PHOSPHORUS, | Routin | 08/26/2019 | Pancytopenia (HCC) | Results for this | | PLASMA | e | 9:45 AM | | procedure are in the | | | | PDT | | results section. | + +--------+ + + + | RBC MORPHOLOGY | Routin | 08/26/2019 | Pancytopenia (HCC) | Results for this | | | e | 9:45 AM | | procedure are in the | | | | PDT | | results section. | + +--------+ + + + | CBC AND AUTO DIFF | Routin | 08/26/2019 | Pancytopenia (HCC) | Results for this | | | e | 9:45 AM | | procedure are in the | | | | PDT | | results section. | + +--------+ + + + | MANUAL DIFFERENTIAL | Routin | 08/26/2019 | Pancytopenia (HCC) | Results for this | | | e | 9:45 AM | | procedure are in the | | | | PDT | | results section. | + +--------+ + + + | [facility] - COMPLETE | Routin | 08/26/2019 | Pancytopenia (HCC) | Results for this | | METABOLIC SET | e | 9:45 AM | | procedure are in the | | | | PDT | | results section. | + +--------+ + + + | [facility] CBC W | Routin | 08/26/2019 | Pancytopenia (HCC) | Results for this | | DIFFERENTIAL | e | 9:45 AM | | procedure are in the | | | | PDT | | results section. | + +--------+ + + + | ANTIBODY SCREEN | Urgent | 08/26/2019 | Pancytopenia (HCC) | Results for this | | | | 9:45 AM | | procedure are in the | | | | PDT | | results section. | + +--------+ + + + | BLOOD BANK HOLD TUBE | Routin | 08/26/2019 | Pancytopenia (HCC) | Results for this | | - DON | e | 9:45 AM | | procedure are in the | | | | PDT | | results section. | | T PROCESS | | | | | + +--------+ + + + | TYPE AND SCREEN | Urgent | 08/26/2019 | Pancytopenia (HCC) | Results for this | | | | 9:45 AM | | procedure are in the | | | | PDT | | results section. | + +--------+ + + + | ABO & RH TYPE | Urgent | 08/26/2019 | Pancytopenia (HCC) | Results for this | | | | 9:45 AM | | procedure are in the | | | | PDT | | results section. | + +--------+ + + + documented in this encounter Results PRODUCT - RED CELLS LEUKOREDUCED (08/26/2019 10:34 AM PDT) + + + + + [...] + + + + | PRODUCT | [id number] | | [facility] | | | UNIT [...] + + + + | EXPIRATION | [id number] | | [facility] | | | DATE [...] + + + + | BLOOD | [id number] | | [facility] | | | PRODUCT [...] | + + + + + | [facility] | [address] | [place] [address] | | | SERVICES, | [address] | | | | TRANSFUSION MEDICINE | | | | + + + + + PRODUCT - RED CELLS LEUKOREDUCED (08/26/2019 10:32 AM PDT) + + + + + [...] + + + + | PRODUCT | [id number] | | [facility] | | | UNIT [...] + + + + | EXPIRATION | [id number] | | [facility] | | | DATE [...] + + + + | BLOOD | [id number] | | [facility] | | | PRODUCT [...] | + + + + + | [facility] | [address] | [place] [address] | | | SERVICES, | [address] | | | | TRANSFUSION MEDICINE | | | | + + + + + RBC MORPHOLOGY (08/26/2019 9:45 AM PDT) + + + + + [...] + + + + + + | MICROCYTOSI | 1+(10-25cells/HPF) | | [facility] | | | S | | | LABORATORY | | | | | | SERVICES, | | | | | | [facility] | | | [facility] + | | | | | | HEALING | | + + + + + + | TEAR DROP | 1+ (<2-4cells/HPF) | | [facility] | | | CELLS | | | LABORATORY | | | [...] | + + + + + | [facility] | [address] | [place] [address] | | | SERVICES, [facility] | | | | | [facility] + HEALING | | | | + + + + + MANUAL DIFFERENTIAL (08/26/2019 9:45 AM PDT) + + + + + + | Component | Value | Ref Range | Performed | Pathologist | | | | | At | Signature | + + + + + + | NEUTROPHIL | 28.9 (L) | 50.0 - 70.0 % | [facility] | | | % | | | LABORATORY | | | | | | SERVICES, | | | | | | [facility] | | [facility] + | | | | | | HEALING | | + + + + + + | LYMPHOCYTE | 62.2 (H) | 18.0 - 42.0 % | [facility] | | | % | | | LABORATORY | | | | | | SERVICES, | | | | | | [facility] | | | | | [facility] + | | | | | | HEALING | | + + + + + + | MONOCYTE % | 3.3 (L) | 3.5 - 9.0 % | [facility] | | | | | | LABORATORY | | | | | | SERVICES, | | | | | | [facility] | | | | [facility] + | | | | | | HEALING | | + + + + + + | EOSINOPHIL | 0.0 (L) | 1.0 - 3.0 % | [facility] | | | % | | | LABORATORY | | | | | | SERVICES, | | | | | | [facility] | | | | | | [facility] + | | | | | | HEALING | | + + + + + + | BASOPHIL % | 2.2 (H) | 0.0 - 2.0 % | [facility] | | | | | | LABORATORY | | | | | | SERVICES, | | | | | | [facility] | | | | | | [facility] + | | | | | | HEALING | | + + + + + + | IG% | 0.0 | 0.0 - 1.0 % | [facility] | | | | | | LABORATORY | | | | | | SERVICES, | | | | | | [facility] | | | | | | [facility] + | | | | | | HEALING | | + + + + + + | ATYPICAL | 3.3 (H)Comment: Atypical | 0.0 % | [facility] [...] + + + + | NEUTROPHIL | 0.40 (L) | 1.80 - 7.70 | [facility] | | | # | | K/cu mm | LABORATORY | | | | | | SERVICES, | | | | | | [facility] | | | | | | [facility] + | | | | | | HEALING | | + + + + + + | LYMPHOCYTE | 0.87 (L) | 1.00 - 4.80 | [facility] | | | # | | K/cu mm | LABORATORY | | | | | | SERVICES, | | | | | | [facility] | | | | | | [facility] + | | | | | | HEALING | | + + + + + + | MONOCYTE # | 0.05 (L) | 0.10 - 0.90 | [facility] | | | | | K/cu mm | LABORATORY | | | | | | SERVICES, | | | | | | [facility] | | | | | | [facility] + | | | | | | HEALING | | + + + + + + | EOSINOPHIL | 0.00 | 0.00 - 0.50 | [facility] | | | # | | K/cu mm | LABORATORY | | | | | | SERVICES, | | | | | | [facility] | | | | | | [facility] + | | | | | | HEALING | | + + + + + + | BASOPHIL # | 0.03 | 0.00 - 0.10 | [facility] | | | | | K/cu mm | LABORATORY | | | | | | SERVICES, | | | | | | [facility] | | | | | | [facility] + | | | | | | HEALING | | + + + + + + | IG# | 0.00 | 0.00 - 0.10 | [facility] | | | | | K/cu mm | LABORATORY | | | | | | SERVICES, | | | | | | [facility] | | | | | | [facility] + | | | | | | HEALING | | + + + + + + | ATYPICAL | 0.05 | K/cu mm | [facility] | | [...] are included in the neutrophil count. | [facility] | | | HEALTH + | | | HEALING | + + + + + + + + | Performing | Address | City/State/Zipcode | Phone Number | | Organization | | | | + + + + + | [facility] | [address] | [place] [address] | | | [facility] | | | | | HEALTH + HEALING | | | | + + + + + ANTIBODY SCREEN (08/26/2019 9:45 AM PDT) + + + + + + | Component | Value | Ref Range | Performed | Pathologist | | | | | At | Signature | + + + + + + | Antibody | Negative | | [facility] | | | Screen | | | LABORATORY | | | [...] [facility] | [address] | [place] [address] | | | SERVICES, | [address] | | | | TRANSFUSION MEDICINE | | | | + + + + + ABO & RH TYPE (08/26/2019 9:45 AM PDT) + + + + + + | Component | Value | Ref Range | Performed | Pathologist | | | | | At | Signature | + + + + + + | ABO Group | A | | [facility] | | | | | | LABORATORY | | | | | | SERVICES, | | | | | | TRANSFUSION | | | | | | MEDICINE | | + + + + + + | Rh Type | Negative | | [facility] | | | | [...] | + + + + + | [facility] | [address] | [place] [address] | | | SERVICES, | [address] | | | | TRANSFUSION MEDICINE | | | | + + + + + CBC AND AUTO DIFF (08/26/2019 9:45 AM PDT) + + + + + + | Component | Value | Ref Range | Performed | Pathologist | | | | | At | Signature | + + + + + + | WHITE CELL | 1.40 (LL) | 3.50 - 10.80 | [facility] | | | COUNT | | K/cu mm | LABORATORY | | | | | | SERVICES, | | | | | | [facility] | | | | [facility] + | | | | | | HEALING | | + + + + + + | RED CELL | 2.38 (L) | 4.00 - 5.20 | [facility] | | | COUNT | | M/cu mm | LABORATORY | | | | | | SERVICES, | | | | | | [facility] | | | | [facility] + | | | | | | HEALING | | + + + + + + | HEMOGLOBIN | 7.0 (L) | 12.0 - 16.0 | [facility] | | | | | g/dL | LABORATORY | | | | | | SERVICES, | | | | | | [facility] | | | | | | [facility] + | | | | | | HEALING | | + + + + + + | HEMATOCRIT | 19.6 (LL) | 36.0 - 46.0 % | [facility] | | | | | | LABORATORY | | | | | | SERVICES, | | | | | | [facility] | | | | | | [facility] + | | | | | | HEALING | | + + + + + + | MCV | 82.4 | 80.0 - 100.0 fL | [facility] | | | | | | LABORATORY | | | | | | SERVICES, | | | | | | [facility] | | | | | | [facility] + | | | | | | HEALING | | + + + + + + | MCHC | 35.7 | 32.0 - 36.0 | [facility] | | | | | g/dL | LABORATORY | | | | | | SERVICES, | | | | | | [facility] | | | | | | [facility] + | | | | | | HEALING | | + + + + + + | RDW SD | 39.5 | 35.1 - 46.3 fL | [facility] | | | | | | LABORATORY | | | | | | SERVICES, | | | | | | [facility] | | | | | | [facility] + | | | | | | HEALING | | + + + + + + | PLATELET | 16 (L) | 150 - 400 K/cu | [facility] | | | COUNT | | mm | LABORATORY | | | | | | SERVICES, | | | | | | [facility] | | | | | | [facility] + | | | | | | HEALING | | + + + + + + | MPV | Comment: Not measured. | | [facility] | | | | [...] + + + + | NEUTROPHIL | 0.16 (L)Comment: | 1.80 - 7.70 | [facility] [...] | + + + + + | [facility] | [address] | [place] [address] | | | SERVICES, [facility] | | | | | HEALTH + HEALING | | | | + + + + + [facility] - PHOSPHORUS, PLASMA (08/26/2019 9:45 AM PDT) + +-------+ + + + | Component | Value | Ref Range | Performed | Pathologist | | | | | At | Signature | + +-------+ + + + | PHOSPHORUS, | 4.0 | 2.4 - 4.7 mg/dL | [facility] [...] [facility] | [address] | [place] [address] | | | SERVICES, [facility] | | | | | HEALTH + HEALING | | | | + + + + + [facility] - MAGNESIUM, PLASMA (08/26/2019 9:45 AM PDT) + +-------+ + + + | Component | Value | Ref Range | Performed | Pathologist | | | | | At | Signature | + +-------+ + + + | MAGNESIUM,P | 1.8 | 1.6 - 2.6 mg/dL | [facility] | | | LASMA | | | LABORATORY | | | | | | SERVICES, | | | | | | [facility] | | | | | | HEALTH [...] + | [facility] | [address] | [place] [address] | | | SERVICES, [facility] | | | | | HEALTH + HEALING | | | | + + + + + BLOOD BANK HOLD TUBE - DON T PROCESS (08/26/2019 9:45 AM PDT) + + + + + [...] | + + + + + | [facility] | [address] | [place] [address] | | | SERVICES, | [address] | | | | TRANSFUSION MEDICINE | | | | + + + + + [facility] - COMPLETE METABOLIC SET (08/26/2019 9:45 AM PDT) + + + + + + | Component | Value | Ref Range | Performed | Pathologist | | | | | At | Signature | + + + + + + | GLUCOSE, | 216 (H) | 70 - 99 mg/dL | [...] + + + + | CREATININE | 0.63 | 0.60 - 1.10 | [facility] | [...] | | | LABORATORY | | | BRITISH | | | SERVICES, | | | [...] + + + + | SODIUM, | 138 | 136 - 145 | [facility] | [...] + + + + | CHLORIDE, | 104 | 97 - 108 mmol/L | [facility] | | | PLASMA | | | LABORATORY | | | (LAB) | | | SERVICES, | | | | | | [facility] | | | [facility] + | | | | | | HEALING | | + + + + + + | TOTAL CO2, | 26 | 21 - 32 mmol/L | [facility] | | | PLASMA | | | LABORATORY | | | (LAB) | | | SERVICES, | | | | | | [facility] | [facility] | | [facility] + | | | | | | HEALING | | + + + + + + | CALCIUM, | 9.5 | 8.6 - 10.2 | [facility] | | | PLASMA | | mg/dL | LABORATORY | | | (LAB) | | | SERVICES, | | | | | | [facility] | | | | [facility] + | | | | | | HEALING | | + + + + + + | CALCIUM(ALB | 10.5 (H) | 8.6 - 10.2 | [facility] | | | CORRECTED) | | mg/dL | LABORATORY | | | | | | SERVICES, | | | | | | [facility] | | | | | | [facility] + | | | | | | HEALING | | + + + + + + | BILIRUBIN | 0.4 | 0.3 - 1.2 mg/dL | [facility] | | | TOTAL | | | LABORATORY | | | | | | SERVICES, | | | | | | [facility] | | | | | | [facility] + | | | | | | HEALING | | + + + + + + | TOTAL | 7.2 | 6.4 - 8.2 g/dL | [facility] [...] + + + | ALK PHOS | 126 | 53 - 141 U/L | [facility] | | | | | | LABORATORY | | | | | | SERVICES, | | | | | | [facility] | | | | | | [facility] + | | | | | | HEALING | | + + + + + + | AST(SGOT) | 14 | <=41 U/L | [facility] | | | | | | LABORATORY | | | | | | SERVICES, | | | | | | [facility] | | | | | | [facility] + | | | | | | HEALING | | + + + + + + | ALT (SGPT) | 22 | <=60 U/L | [facility] | | | | | | LABORATORY | | | | | | SERVICES, | | | | | | [facility] | | | | | | [facility] + | | | | | | HEALING | | + + + + + + | ANION GAP | 8 | 4 - 11 mmol/L | [facility] | | | | | | LABORATORY | | | | | | SERVICES, | | | | | | [facility] | | | | | | [facility] + | | | | | | HEALING | | + + + + + + | ANION | 11 | 4 - 11 mmol/L | [facility] [...] + + + + | BUN/CREATIN | 19 | 8 - 25 | [facility] | | | INE RATIO | | | LABORATORY | | | | | | SERVICES, | | | | | | [facility] | | | | | | [facility] + | | | | | | HEALING | | + + + + + + | GLOBULIN | 4.4 (H) | 2.3 - 3.5 gm/dL | [...] MDRD equation recommended by the National | [facility] | | Kidney Disease Education Program. Estimated [...] + + + | [facility] | [address] | [place] [address] | | | [facility] | | | | | HEALTH + HEALING | | | | + + + + + documented in this encounter Visit Diagnoses + + | Diagnosis | + + | Pancytopenia (HCC) - Primary Other pancytopenia | + + documented in this encounter Administered Medications + +--------+ +--------+------+------+ | Medication Order | MAR | Action | Dose | Rate | Site | | | Action | Date | | | | + +--------+ +--------+------+------+ | acetaminophen (TYLENOL) tablet | Given | 08/26/19 | 650 mg | | | | 650 mg 650 mg, oral, ONCE, 1 | | 20 11:52 | | | | | dose, 08/26/19 at 1200 | | AM PDT | | | | + +--------+ +--------+------+------+ +---+---+ | | | +---+---+ documented in this encounter"
--- OUTSIDE RECORDS SUMMARY | ~2019-12-27 | XMS | Encounter Summary ---
Demographics + + + | Address | [address] | | | [place] [address] | + + + | Home Phone | | + + + | Preferred Language | Unknown | + + + | Marital Status | | + + + | Orthodox Affiliation | LUT | + + + | Race | White | + + + | Ethnic Group | Not or | + + + Author + + + | Author | [facility] | + + + | Organization | [facility] | + + + | Address [...] Team Providers + +------+ + | Care Currency Exchange Specialist Name | Role | Phone | + +------+ + | Oz Rodriguez MD | PCP | | + +------+ + Encounter Details +--------+ + + + + | Date | Type | Department | Care Team | Description | +--------+ + + + + | 10/23/ | Documentati | [facility] | Daysi Mccauley MD | | | 2020 | on | Clinics at S | [address] | | | | | [facility] [address] | [address] [place], | | | | | [facility] | [place] [address] | | | | | Health and Healing, | [phone] | | | | | [facility] | | | | | | [place], [place] | | | | | | [address] | | | | | | [phone] | | | +--------+ + + + [...] recent travel history available. | + + documented as of this encounter [...] | | | | | | [place] [address] | | | | | | [phone] | | | | | | | | +--------+ + + + + | 01/14/ | Appointment | Hematology & | Onc, [address] | | | 2019 | | Oncology | [place] | | | | | | [place] [address] | | +--------+ + + + + documented as of this encounter Visit Diagnoses Not on filedocumented in this encounter"
--- OUTSIDE RECORDS SUMMARY | ~2019-12-27 | XMS | Encounter Summary ---
Demographics + + + | Address | [address] | | | [place] [address] | + + + | Home Phone | | + + + | Preferred Language | Unknown | + + + | Marital Status | | + + + | Cheondoism Affiliation | LUT | + + + | Race | White | + + + | Ethnic Group | Not or | + + + Author + + + | Author | [facility] | + + + | Organization | [facility] | + + + | [...] Team Providers + +------+ + | Care Science Faculty Member Name | Role | Phone | + +------+ + | Oz Rodriguez MD | PCP | | + +------+ + Encounter Details +--------+ + + + + | Date | Type | Department | Care Team | Description | +--------+ + + + + | 08/27/ | Pharmacy | [facility] | | | | 2020 | Visit | [address] | | | | | | [address] | | | | | | [place] [address] | | | | | | [phone] | | | +--------+ + + + [...] | | | | | [place], | | | | | | [place] [address] | | | | | | [phone] | | | | | | | | +--------+ + + + + | 01/14/ | Appointment | Hematology & | Onc, [address] | | | 2019 | | Oncology | [place] | | | | | | [place] [address] | | +--------+ + + + + documented as of this encounter Visit Diagnoses Not on filedocumented in this encounter"
--- OUTSIDE RECORDS SUMMARY | ~2019-12-27 | XMS | Encounter Summary ---
Demographics + + + | Address | [address] | | | [place] [address] | + + + | Home Phone | | + + + | Preferred Language | Unknown | + + + | Marital Status | | + + + | Pentecostalism Affiliation | LUT | + + + | Race | White | + + + | Ethnic Group | Not or | + + + Author + + + | Author | [facility] | + + + | Organization | [facility] | + + + | [...] Team Providers + +------+ + | Care Printed Products Assembler Name | Role | Phone | + +------+ + | Margarita Patterson | PCP | | + +------+ + Encounter Details +--------+ + + + + | Date | Type | Department | Care Team | Description | +--------+ + + + + | 12/07/ | Document-Sc | [facility] | Daysi Mccauley MD | | | 2020 | ann | [facility] | [address] | | | | | [place] [address] [place], | | | | | [facility] | [place] [address] | | | | | [facility], | [phone] | | | | | [address] | | | | | | [place], [place] | | | | | | [address] | | | | | | [phone] | | | +--------+ + + + [...] in contact | No / Unsure | 12/07/2019 10:57 AM | | with someone who was [...] | | | | | [address] [place], | | | | | | [place] [address] | | | | | | [phone] | | | | | | | | +--------+ + + + + | 01/14/ | Appointment | Hematology & | Onc, [address] | | | 2020 | | Oncology | [place], | | | | | | [place] [address] | | +--------+ + + + + documented as of this encounter Visit Diagnoses Not on filedocumented in this encounter"
--- OUTSIDE RECORDS SUMMARY | ~2019-12-27 | XMS | Encounter Summary ---
Demographics + + + | Address | [address] | | | [place] [address] | + + + | Home Phone | | + + + | Preferred Language | Unknown | + + + | Marital Status | | + + + | Zoroastrian Affiliation | LUT | + + + [...] Team Providers + +------+ + | Care Hot Roll Laminator Name | Role | Phone | + +------+ + | Margarita Patterson | PCP | | + +------+ + Reason for Visit + + + | Reason | Comments | + + + | housing accomodation | | + + + Encounter Details +--------+ + + + + | Date | Type | Department | Care Team | Description | +--------+ + + + + | 08/10/ | Telephone | [facility] | Work, Social | housing accomodation | | 2020 | | Clinics at S | | | | | | [facility] [address] | | | | | | [facility] | | | | | | [facility] and Healing, | | | | | | [address] | | | | | | [place], [place] | | | | | | [address] | | | | | | [phone] | | | +--------+ + + + [...] | | | | | | [place] | | | | | | [place] [address] | | | | | | [phone] | | | | | | | | +--------+ + + + + | 01/14/ | Appointment | Hematology & | Onc, Gen [address] | | | 2020 | | Oncology | [place] | | | | | | [place] [address] | | +--------+ + + + + documented as of this encounter Visit Diagnoses Not on filedocumented in this encounter"
--- OUTSIDE RECORDS SUMMARY | ~2019-12-27 | XMS | Encounter Summary ---
Demographics + + + | Address | [address] | | | [place] [address] | + + + | Home Phone | | + + + | Preferred Language | Unknown | + + + | Marital Status | | + + + | Confucianist Affiliation | LUT | + + + | Race | White | + + + | Ethnic Group | Not or | + + + Author + + + | Author | [facility] | + + + | Organization | [facility] | + + + | Address | [...] Team Providers + +------+ + | Care Director Of Technology Name | Role | Phone | + +------+ + | Margarita Patterson | PCP | | + +------+ + Reason for Visit + + + | Reason | Comments | + + + | Refill Request | [email or web address] | + + + Encounter Details +--------+--------+ + + + | Date | Type | Department | Care Team | Description | +--------+--------+ + + + | 11/23/ | Refill | [facility] | Daysi Mccauley MD | Refill Request | | 2020 | | Clinics at S | [address] [facility] | ([email or web address]) | | | | [facility] [address] [place], | | | | | [facility] | [place] [address] | | | | | Health and Healing, | [phone] | | | | | [address] | | | | | | [place], [place] | | | | | | [address] | | | | | | [phone] | | | +--------+--------+ + + + [...] | | | | | | [place] [address] | | | | | | [phone] | | | | | | | | +--------+ + + + + | 01/14/ | Appointment | Hematology & | Onc, Gen [address] | | | 2019 | | Oncology | [place] | | | | | | [place] [address] | | +--------+ + + + + documented as of this encounter Visit Diagnoses Not on filedocumented in this encounter"
--- OUTSIDE RECORDS SUMMARY | ~2019-12-27 | XMS | Encounter Summary ---
Demographics + + + | Address | [address] | | | [place] [address] | + + + | Home Phone | | + + + | Preferred Language | Unknown | + + + | Marital Status | | + + + | Roman Catholic Affiliation | LUT | + + + | Race | White | + + + | Ethnic Group | Not or | + + + Author + + + | Author | [facility] | + + + | Organization | [facility] | + + + | Address [...] Team Providers + +------+ + | Care Doughnut Maker Name | Role | Phone | + [...] | +--------+ + + + + | 09/02/ | Telephone | [facility] | Daysi Mccauley MD | Covid19 Screening | | 2020 | | Clinics at S | [address] [facility] | | | | | [place] [address] [place], | | | | | [facility] | [place] [address] | | | | | Health and Healing, | [phone] | | | | | [facility] [address] | | | | | | [place], [place] | | | | | | [address] | | | | | | [phone] | | | +--------+ + + + [...] in contact | No / Unsure | 09/02/2019 9:36 AM | | with someone who was [...] | | | | | | [place] [address] | | | | | | [phone] | | | | | | | | +--------+ + + + + | 01/14/ | Appointment | Hematology & | Onc, Gen [address] | | | 2019 | | Oncology | [place], | | | | | | [place] [address] | | +--------+ + + + + documented as of this encounter Visit Diagnoses Not on filedocumented in this encounter"
--- OUTSIDE RECORDS SUMMARY | ~2019-12-27 | XMS | Encounter Summary ---
Demographics + + + | Address | [address] | | | [place] [address] | + + + | Home Phone | | + + + | Preferred Language | Unknown | + + + | Marital Status | | + + + | Yazidism Affiliation | LUT | + + + | Race | White | + + + | Ethnic Group | Not or | + + + Author + + + | Author | [facility] | + + + | Organization | [facility] | + + + | Address | [...] Team Providers + +------+ + | Care Distribution Coordinator Name | Role | Phone | + +------+ + | Margarita Patterson | PCP | | + +------+ + Encounter Details +--------+ + + + + | Date | Type | Department | Care Team | Description | +--------+ + + + + | 10/06/ | Documentati | [facility] | Daysi Mccauley MD | | | 2020 | on | Clinics at S | [address] | | | | | [place] [place], | | | | | [facility] | [place] [address] | | | | | Health and Healing, | [phone] | | | | | [address] | | | | | | [place], [place] | | | | | | [address] | | | | | | [phone] | | | +--------+ + + + [...] | | | | | [address] [address], | | | | | | [place] [address] | | | | | | [phone] | | | | | | | | +--------+ + + + + | 01/14/ | Appointment | Hematology & | Onc, Gen [address] | | | 2020 | | Oncology | [place], | | | | | | [place] [address] | | +--------+ + + + + documented as of this encounter Visit Diagnoses Not on filedocumented in this encounter"
--- OUTSIDE RECORDS SUMMARY | ~2019-12-27 | XMS | Encounter Summary ---
Demographics + + + | Address | [address] | | | [place] [address] | + + + | Home Phone | | + + + | Preferred Language | Unknown | + + + | Marital Status | | + + + | Protestant Affiliation | LUT | + + + | Race | White | + + + | Ethnic Group | Not or | + + + Author + + + | Author | [facility] | + + + | Organization | [facility] | + + + | Address [...] Team Providers + +------+ + | Care Bi Consultant Name | Role | Phone | + +------+ + | Margarita Patterson | PCP | | + +------+ + Reason for Visit + + + | Reason | Comments | + + + | Medication | | | Administration | | + + + | Lab Draw | | + + + | Transfusion | | + + + Encounter Details +--------+ + + + + | Date | Type | Department | Care Team | Description | +--------+ + + + + | 09/03/ | Hospital | [facility] | | | | 2020 | Encounter | Clinics at S | | | | | | [place] [address] | | | | | | [facility] | | | | | | [facility] and [facility], | | | | | | [address] | | | | | | [place], [place] | | | | | | [address] | | | | | | [phone] | | | +--------+ + + + [...] + + + | Blood Pressure | 149/56 | 09/04/2019 2:49 PM | | | | | PDT | | + + + + + | Pulse | 58 | 09/04/2019 2:49 PM | | | | | PDT | | + + + + + | Temperature | 36.8 C (98.3 F) | 09/04/2019 2:49 PM | | | | | PDT | | + + + + + | Respiratory Rate | 16 | 09/04/2019 2:49 PM | | | | | PDT | | + + + + + | Oxygen Saturation | 100% | 09/04/2019 2:49 PM | | | | | PDT | | + + + + + | Inhaled Oxygen | - | - | | | Concentration | | | | + + + + + | Weight | 102.1 kg (225 lb) | 09/04/2019 10:50 AM | | | | | PDT | | + + + + + | Height | - | - | | + + + + + | Body Mass Index | 36.42 | 08/05/2019 10:34 PM | | | [...] documented as of this encounter Progress Notes Joe Melissa RN - 09/04/2019 11:10 AM PDTFormatting of this note might be different fr om the original. INFUSION NURSING NOTE Allergies: Fidelia has No Known Allergies. Narrative: Pt arrived to clinic independently, reports feeling well today. She states that she is sti ll havin headaches and fatigue. Headache likely r/t high BP. Reports that she is currently not having a headache, and BP is stable today. MD aware of this. Nursing Assessment: Fever/Chills/Infection: No SOB / Cough: No Dizziness/Lightheaded/Fatigue: Yes Signs/Symptoms Bleeding: No Neuropathy: No Mucositis: No Nausea/Vomiting: No Appetite: adequate. Diarrhea/Constipation: No PO Fluid Intake: 2L. Rash/Skin sores/Edema: No Urinary Issues: No Pain: No Vascular Access: Power PICC accessed per protocol. Good blood return noted. Appropriate waste discarded. Labs drawn and sent. Power PICC pulse flushed with 20 mL NS. Line dated 09/02/19 Per Orders: 2G Mg - partial dose. Lab Results Component Value Date HCT 25.3 09/04/2019 HB 9.1 09/04/2019 Orders to transfuse PRBC product for a [...] ONC Lines & Transf usions doc flowsheet. Patient was reminded to call clinic with temp > 100.4, chills, s/s of bleeding or uncontrol led N/V/D/C. Patient d/c d ambulatory in stable condition. PRBC order was obtained to ensure that pt would not become anemic over long stretch between appointments. Joe Melissa RN documented in this e ncounter Plan of Treatment +--------+ + + + + | Date | Type | Specialty | Care Team | Description | +--------+ + + + + | 01/14/ | Appointment | Cardiology | | | | 2019 | | | | | +--------+ + + + + | 01/14/ | Clinical | Phlebotomy | | | 2019 | Support | | | | | | Staff | | | | +--------+ + + + + | 01/14/ | Office | Hematology | Daysi Mccauley MD | | | 2019 | Visit | Malignancy | [address] | | | | | | [place], | | | | | | [place] [address] | | | | | | [phone] | | | | | | | | +--------+ + + + + | 01/14/ | Appointment | Hematology & | Onc, Gen [address] | | | 2019 | | Oncology | [place], | | | | | | [place] [address] | | +--------+ + + + + + + +--------+ + + | Name | Type | Priori | Associated Diagnoses | Order Schedule | | | | ty | | | + + +--------+ + + | MANUAL DIFFERENTIAL | Lab - | Routin | Pancytopenia (HCC) | 09/04/2019 until | | | Dany Estrada | e | | discontinued, 1 | | | Performable | | | completed | | | s | | | | + + +--------+ + + | RBC MORPHOLOGY | Lab - | Routin | Pancytopenia (HCC) | 09/04/2019 until | | | [facility] | e | | discontinued, 1 [...] + + | HB-LAB | Routin | 09/04/2019 | Pancytopenia (HCC) | Results for this | | [place] | e | 12:04 PM | | procedure are in the | | C | | PDT | | results section. | + +--------+ + + + | [facility] - MAGNESIUM, | Routin | 09/04/2019 | Pancytopenia (HCC) | Results for this | | PLASMA | e | 10:49 AM | | procedure are in the | | | | PDT | | results section. | + +--------+ + + + | [facility] - PHOSPHORUS, | Routin | 09/04/2019 | Pancytopenia (HCC) | Results for this | | PLASMA | e | 10:49 AM | | procedure are in the | | | | PDT | | results section. | + +--------+ + + + | RBC MORPHOLOGY | Routin | 09/04/2019 | Pancytopenia (HCC) | Results for this | | | e | 10:49 AM | | procedure are in the | | | | PDT | | results section. | + +--------+ + + + | CBC AND AUTO DIFF | Routin | 09/04/2019 | Pancytopenia (HCC) | Results for this | | | e | 10:49 AM | | procedure are in the | | | | PDT | | results section. | + +--------+ + + + | MANUAL DIFFERENTIAL | Routin | 09/04/2019 | Pancytopenia ([facility]) | Results for this | | | e | 10:49 AM | | procedure are in the | | | | PDT | | results section. | + +--------+ + + + | [facility] - COMPLETE | Routin | 09/04/2019 | Pancytopenia (HCC) | Results for this | | METABOLIC SET | e | 10:49 AM | | procedure are in the | | | | PDT | | results section. | + +--------+ + + + | [facility] CBC W | Routin | 09/04/2019 | Pancytopenia (HCC) | Results for this | | DIFFERENTIAL | e | 10:49 AM | | procedure are in the | | | | PDT | | results section. | + +--------+ + + + | ANTIBODY SCREEN | Routin | 09/04/2019 | Pancytopenia (HCC) | Results for this | | | e | 10:49 AM | | procedure are in the | | | | PDT | | results section. | + +--------+ + + + | BLOOD BANK HOLD TUBE | Routin | 09/04/2019 | Pancytopenia (HCC) | Results for this | | - DON | e | 10:49 AM | | procedure are in the | | | | PDT | | results section. | | T PROCESS | | | | | + +--------+ + + + | TYPE AND SCREEN | Routin | 09/04/2019 | Pancytopenia (HCC) | Results for this | | | e | 10:49 AM | | procedure are in the | | | | PDT | | results section. | + +--------+ + + + | ABO & RH TYPE | Routin | 09/04/2019 | Pancytopenia (HCC) | Results for this | | | e | 10:49 AM | | procedure are in the | | | | PDT | | results section. | + +--------+ + + + documented in this encounter Results PRODUCT - RED CELLS LEUKOREDUCED (09/04/2019 12:04 PM PDT) + + + + + + | Component | Value | Ref Range | Performed | Pathologist | | | | | At | Signature | + + + + + + | PRODUCT | -3 RED BLOOD CELLS | | [facility] | | | DESCRIPTION | LEUKOREDUCED IRRADIATED | | LABORATORY | | | | | | SERVICES, | | | | | | TRANSFUSION | | | | | | MEDICINE | | + + + + + + | PRODUCT | [id number] | | [facility] | | | UNIT [...] + + + + | EXPIRATION | [id number] | | [facility] | | | DATE [...] + + + + | BLOOD | [id number] | | [facility] | | | PRODUCT [...] + | [facility] | [address] | [place] [address] | | | SERVICES, | [address] | | | | TRANSFUSION MEDICINE | | | | + + + + + ANTIBODY SCREEN (09/04/2019 10:49 AM PDT) + + + + + [...] | + + + + + | [facility] | [address] | [place] [address] | | | SERVICES, | [address] | | | | TRANSFUSION MEDICINE | | | | + + + + + ABO & RH TYPE (09/04/2019 10:49 AM PDT) + + + + + [...] [facility] | [address] | [place] [address] | | | SERVICES, | [address] | | | | TRANSFUSION MEDICINE | | | | + + + + + RBC MORPHOLOGY (09/04/2019 10:49 AM PDT) + + + + + + | Component | Value | Ref Range | Performed | Pathologist | | | | | At | Signature | + + + + + + | ANISOCYTOSI | 2+(25-100cells/HPF) | | [facility] | | | S [...] [facility] | [address] | [place] [address] | | | SERVICES, [facility] FOR | | | | | HEALTH + HEALING | | | | + + + + + MANUAL DIFFERENTIAL (09/04/2019 10:49 AM PDT) + + + + + + | Component | Value | Ref Range | Performed | Pathologist | | | | | At | Signature | + + + + + + | NEUTROPHIL | 8.3 (L) | 50.0 - 70.0 % | [facility] | | | % | | | LABORATORY | | | | | | SERVICES, | | | | | | [facility] | | | | [facility] + | | | | | | HEALING | | + + + + + + | LYMPHOCYTE | 84.3 (H) | 18.0 - 42.0 % | [facility] | | | % | | | LABORATORY | | | | | | SERVICES, | | | | | | [facility] | | | | | | [facility] + | | | | | | HEALING | | + + + + + + | MONOCYTE % | 3.7 | 3.5 - 9.0 % | [facility] [...] + + + + | IG% | 2.8 (H) | 0.0 - 1.0 % | [facility] | | | | | | LABORATORY | | | | | | SERVICES, | | | | | | [facility] | | | | | | [facility] + | | | | | | HEALING | | + + + + + + | ATYPICAL | 0.9 (H)Comment: Fine | 0.0 % | [facility] | | | CELL % | chromatin, Dark blue | | LABORATORY | | | | cytoplasm, High N:C | | SERVICES, | | | | ratio | | [facility] | | [facility] + | | | | | | HEALING | | + + + + + + | NEUTROPHIL | 0.26 (L) | 1.80 - 7.70 | [facility] | | | # | | K/cu mm | LABORATORY | | | | | | SERVICES, | | | | | | [facility] | | | | | | [facility] + | | | | | | HEALING | | + + + + + + | LYMPHOCYTE | 2.66 | 1.00 - 4.80 | [facility] | | | # | | K/cu mm | LABORATORY | | | | | | SERVICES, | | | | | | [facility] | | | | | | [facility] + | | | | | | HEALING | | + + + + + + | MONOCYTE # | 0.12 | 0.10 - 0.90 | [facility] | [...] + + + + | ATYPICAL | 0.03 | K/cu mm | [facility] | | [...] LABORATORY | [address] | [place] [address] | | | SERVICES, [place] [facility] | | | | | HEALTH + HEALING | | | | + + + + + CBC AND AUTO DIFF (09/04/2019 10:49 AM PDT) + + + + + + | Component | Value | Ref Range | Performed | Pathologist | | | | | At | Signature | + + + + + + | WHITE CELL | 3.15 (L) | 3.50 - 10.80 | [facility] | | | COUNT | | K/cu mm | LABORATORY | | | | | | SERVICES, | | | | | | [facility] | | | | | [facility] + | | | | | | HEALING | | + + + + + + | RED CELL | 3.09 (L) | 4.00 - 5.20 | [facility] | | | COUNT | | M/cu mm | LABORATORY | | | | | | SERVICES, | | | | | | [facility] | | | [facility] + | | | | | | HEALING | | + + + + + + | HEMOGLOBIN | 9.1 (L) | 12.0 - 16.0 | [facility] | | | | | g/dL | LABORATORY | | | | | | SERVICES, | | | | | | [facility] | | | | | [facility] + | | | | | | HEALING | | + + + + + + | HEMATOCRIT | 25.3 (L) | 36.0 - 46.0 % | [facility] | | | | | | LABORATORY | | | | | | SERVICES, | | | | | | [facility] | [facility] | | | | [facility] + | | | | | | HEALING | | + + + + + + | MCV | 81.9 | 80.0 - 100.0 fL | [facility] | | | | | | LABORATORY | | | | | | SERVICES, | | | | | | [facility] | | | | | | [facility] + | | | | | | HEALING | | + + + + + + | MCHC | 36.0 | 32.0 - 36.0 | [facility] | | | | | g/dL | LABORATORY | | | | | | SERVICES, | | | | | | [facility] | [facility] | | | | [facility] + | | | | | | HEALING | | + + + + + + | RDW SD | 37.2 | 35.1 - 46.3 fL | [facility] | | | | | | LABORATORY | | | | | | SERVICES, | | | | | | [facility] | | [facility] + | | | | | | HEALING | | + + + + + + | PLATELET | 17 (L) | 150 - 400 K/cu | [...] + + + + | NEUTROPHIL | 0.28 (L)Comment: | 1.80 - 7.70 | [facility] [...] | + + + + + | [facility] | [address] | [place] [address] | | | SERVICES, [place] [facility] | | | | | HEALTH + HEALING | | | | + + + + + [facility] - PHOSPHORUS, PLASMA (09/04/2019 10:49 AM PDT) + +-------+ + + + | Component | Value | Ref Range | Performed | Pathologist | | | | | At | Signature | + +-------+ + + + | PHOSPHORUS, | 4.1 | 2.4 - 4.7 mg/dL | [facility] | | | PLASMA | | | LABORATORY | | | (LAB) | | | SERVICES, | | | | | | [facility] | | | | | | HEALTH [...] [facility] | [address] | [place] [address] | | | SERVICES, [place] [facility] | | | | | HEALTH + HEALING | | | | + + + + + [facility] - MAGNESIUM, PLASMA (09/04/2019 10:49 AM PDT) + +-------+ + + + | Component | Value | Ref Range | Performed | Pathologist | | | | | At | Signature | + +-------+ + + + | MAGNESIUM,P | 1.8 | 1.6 - 2.6 mg/dL | [facility] | | | LASMA | | | LABORATORY | | | | | | [facility], | | | | | | [place] [facility] | | | | | | [...] [facility] | [address] | [place] [address] | | | SERVICES, [place] [facility] | | | | | HEALTH + HEALING | | | | + + + + + BLOOD BANK HOLD TUBE - DON T PROCESS (09/04/2019 10:49 AM PDT) + + + + + [...] [facility] | [address] | [place] [address] | | | SERVICES, | [address] | | | | TRANSFUSION MEDICINE | | | | + + + + + [facility] - COMPLETE METABOLIC SET (09/04/2019 10:49 AM PDT) + + + + + + | Component | Value | Ref Range | Performed | Pathologist | | | | | At | Signature | + + + + + + | GLUCOSE, | 221 (H) | 70 - 99 mg/dL | [facility] | | | PLASMA | | | LABORATORY | | | (LAB) | | | SERVICES, | | | | | | [facility] | | | | [facility] + | | | | | | HEALING | | + + + + + + | BUN, PLASMA | 21 (H) | 6 - 20 mg/dL | [facility] | | | (LAB) | | | LABORATORY | | | | | | SERVICES, | | | | | | [facility] | | | | [facility] + | | | | | | HEALING | | + + + + + + | CREATININE | 0.83 | 0.60 - 1.10 | [facility] | [...] | | | LABORATORY | | | [place] | | | SERVICES, | | | [...] + + + + | SODIUM, | 136 | 136 - 145 | [facility] | | | PLASMA | | mmol/L | LABORATORY | | | (LAB) | | | SERVICES, | | | | | | [facility] | | | | | | [facility] + | | | | | | HEALING | | + + + + + + | POTASSIUM, | 3.9 | 3.4 - 5.0 | [facility] | | | PLASMA | | mmol/L | LABORATORY | | | (LAB) | | | SERVICES, | | | | | | [facility] | | | | | | [facility] + | | | | | | HEALING | | + + + + + + | CHLORIDE, | 98 | 97 - 108 mmol/L | [facility] [...] + + + + | CALCIUM, | 9.8 | 8.6 - 10.2 | [facility] | [...] + + + + | BILIRUBIN | 0.3 | 0.3 - 1.2 mg/dL | [facility] | | | TOTAL | | | LABORATORY | | | | | | SERVICES, | | | | | | [facility] | | | | | | [facility] + | | | | | | HEALING | | + + + + + + | TOTAL | 7.7 | 6.4 - 8.2 g/dL | [facility] | | | PROTEIN, | | | LABORATORY | | | PLASMA | | | SERVICES, | | | (LAB) | | | [facility] | | | | | | [facility] + | | | | | | HEALING | | + + + + + + | ALBUMIN, | 3.1 (L) | 3.5 - 4.7 g/dL | [facility] | | | PLASMA | | | LABORATORY | | | (LAB) | | | SERVICES, | | | | | | [facility] | | | | | | [facility] + | | | | | | HEALING | | + + + + + + | ALK PHOS | 140 | 53 - 141 U/L | [facility] | | | | | | LABORATORY | | | | | | SERVICES, | | | | | | [facility] | | | | | | [facility] + | | | | | | HEALING | | + + + + + + | AST(SGOT) | 18 | <=41 U/L | [facility] | | | | | | LABORATORY | | | | | | SERVICES, | | | | | | [facility] | | | | | [facility] + | | | | | | HEALING | | + + + + + + | ALT (SGPT) | 30 | <=60 U/L | [facility] | | | | | | LABORATORY | | | | | | SERVICES, | | | | | | [facility] | | | | | | [facility] + | | | | | | HEALING | | + + + + + + | ANION GAP | 10 | 4 - 11 mmol/L | [facility] [...] + + + + | BUN/CREATIN | 25 | 8 - 25 | [facility] | [...] + + + + | ALBUMIN/ASHA | 0.7 | 0.7 - 2.8 | [facility] | [...] MDRD equation recommended by the National | [facility] | | Kidney Disease Education Program. Estimated [...] | + + + + + | [facility] | [address] | [place] [address] | | | SERVICES, [facility] | | | | | HEALTH + HEALING | | | | + + + + + documented in this encounter Visit Diagnoses + + | Diagnosis | + + | Pancytopenia (HCC) - Primary Other pancytopenia | + + documented in this encounter Administered Medications + +---------+ +------+------+------+ | Medication Order | MAR | Action | Dose | Rate | Site | | | Action | Date | | | | + +---------+ +------+------+------+ | magnesium sulfate in water IV | New Bag | 09/04/19 | 2 g | | | | (RTU) 2 g 2 g, intravenous, | | 20 11:09 | | | | | ONCE, 1 dose, Floridalma 09/04/19 at 1100 | | AM PDT | | | | + +---------+ +------+------+------+ +---+---+ | | | +---+---+ documented in this encounter"
--- OUTSIDE RECORDS SUMMARY | ~2019-12-27 | XMS | Encounter Summary ---
Demographics + + + | Address | [address] | | | [place] [address] | + + + | Home Phone | | + + + | Preferred Language | Unknown | + + + | Marital Status | | + + + | Episcopal Affiliation | LUT | + + + | Race | White | + + + | Ethnic Group | Not or | + + + Author + + + | Author | [facility] | + + + | Organization | [facility] | + + + | Address [...] Team Providers + +------+ + | Care Strategic Client Executive Name | Role | Phone | + [...] + + + + | 08/10/ | Documentati | [facility] | Daysi Mccauley MD | Research | | 2020 | on | Clinics at S | [address] [facility] | Documentation | | | | [address] [place], | | | | | [facility] | [place] [address] | | | | | Health and Healing, | [phone] | | | | | [address] | | | | | | [place], [place] | | | | | | [address] | | | | | | [phone] | | | +--------+ + + + [...] | | | | | | [place] [address] | | | | | | [phone] | | | | | | | | +--------+ + + + + | 01/14/ | Appointment | Hematology & | Onc, [address] | | | 2020 | | Oncology | [place] | | | | | | [place] [address] | | +--------+ + + + + documented as of this encounter Visit Diagnoses Not on filedocumented in this encounter"
--- OUTSIDE RECORDS SUMMARY | ~2019-12-27 | XMS | Encounter Summary ---
Demographics + + + | Address | [address] | | | [place] [address] | + + + | Home Phone | | + + + | Preferred Language | Unknown | + + + | Marital Status | | + + + | Congregation Affiliation | LUT | + + + [...] Team Providers + +------+ + | Care Etl Programmer Name | Role | Phone | + +------+ + | Oz Rodriguez MD | PCP | | + +------+ + Encounter Details +--------+ + + + + | Date | Type | Department | Care Team | Description | +--------+ + + + + | 08/28/ | Pharmacy | [facility] | | | | 2020 | Visit | [address] | | | | | | [address] | | | | | | [place] [address] | | | | | | [phone] | | | +--------+ + + + [...] | | | | | [address], | | | | | | [place] [address] | | | | | | [phone] | | | | | | | | +--------+ + + + + | 01/14/ | Appointment | Hematology & | Onc, Gen [address] | | | 2019 | | Oncology | [place] | | | | | | [place] [address] | | +--------+ + + + + documented as of this encounter Visit Diagnoses Not on filedocumented in this encounter"
--- OUTSIDE RECORDS SUMMARY | ~2019-12-27 | XMS | Encounter Summary ---
Demographics + + + | Address | [address] | | | [place] [address] | + + + | Home Phone | | + + + | Preferred Language | Unknown | + + + | Marital Status | | + + + | Moravian Affiliation | LUT | + + + [...] Team Providers + +------+ + | Care Satellite Installation Technician Name | Role | Phone | + +------+ + | SilverioMargarita crawford JUNIOR BUYER | PCP | | + +------+ + Encounter Details +--------+--------+ + + + | Date | Type | Department | Care Team | Description | +--------+--------+ + + + | 12/06/ | Travel | | | | | [...] | | | | | | [place] [address] | | | | | | [phone] | | | | | | | | +--------+ + + + + | 01/14/ | Appointment | Hematology & | Onc, [address] | | | 2019 | | Oncology | [place] | | | | | | [place] [address] | | +--------+ + + + + documented as of this encounter Visit Diagnoses Not on filedocumented in this encounter"
--- OUTSIDE RECORDS SUMMARY | ~2019-12-27 | XMS | Encounter Summary ---
Demographics + + + | Address | [address] | | | [place] [address] | + + + | Home Phone | | + + + | Preferred Language | Unknown | + + + | Marital Status | | + + + | Jewish Affiliation | LUT | + + + | Race | White | + + + | Ethnic Group | Not or | + + + Author + + + | Author | [facility] | + + + | Organization | [facility] | + + + | Address [...] Team Providers + +------+ + | Care Bath Steward/Stewardess Name | Role | Phone | + +------+ + | Oz Rodriguez MD | PCP | | + +------+ + Encounter Details +--------+ + + + + | Date | Type | Department | Care Team | Description | +--------+ + + + + | 08/27/ | Pharmacy | Pharmacy @ [facility] | | | | 2019 | Visit | [address] | | | | | | [place] [address] Mailcode: | | | | | | [facility] | | | | | | and [address], | | | | | | [address] | | | | | | [place], [place] | | | | | | [address] | | | +--------+ + + + [...] | | | | | [address], | | | | | | [place] [address] | | | | | | [phone] | | | | | | | | +--------+ + + + + | 01/14/ | Appointment | Hematology & | Onc, [address] | | | 2020 | | Oncology | [address] [place], | | | | | | [place] [address] | | +--------+ + + + + documented as of this encounter Visit Diagnoses Not on filedocumented in this encounter"
--- OUTSIDE RECORDS SUMMARY | ~2019-12-27 | XMS | Encounter Summary ---
Demographics + + + | Address | [address] | | | [place] [address] | + + + | Home Phone | | + + + | Preferred Language | Unknown | + + + | Marital Status | | + + + | Hoahaoism Affiliation | LUT | + + + [...] Team Providers + +------+ + | Care Mushroom Laborer Name | Role | Phone | + +------+ + | SilverioMargarita crawford SAS ARCHITECT | PCP | | + +------+ + Encounter Details +--------+--------+ + + + | Date | Type | Department | Care Team | Description | +--------+--------+ + + + | 09/03/ | Travel | | | | | [...] | | | | | | [place] [address] | | | | | | [phone] | | | | | | | | +--------+ + + + + | 01/14/ | Appointment | Hematology & | Onc, [address] | | | 2019 | | Oncology | [place] | | | | | | [place] [address] | | +--------+ + + + + documented as of this encounter Visit Diagnoses Not on filedocumented in this encounter"
--- OUTSIDE RECORDS SUMMARY | ~2019-12-27 | XMS | Encounter Summary ---
Demographics + + + | Address | [address] | | | [place] [address] | + + + | Home Phone | | + + + | Preferred Language | Unknown | + + + | Marital Status | | + + + | Quaker Affiliation | LUT | + + + [...] Team Providers + +------+ + | Care Sorter Operator Name | Role | Phone | [...] on | Clinics at S | [address] [facility] | Documentation | | | | [facility] [address] [place], | | | | | [facility] | [place] [address] | | | | | Health and Healing, | [phone] | | | | | [address] | | | | | | [place], [place] | | | | | | [address] | | | | | | [phone] | | | +--------+ + + + [...] | | | | | | [place] [address] | | | | | | [phone] | | | | | | | | +--------+ + + + + | 01/14/ | Appointment | Hematology & | Onc, [address] | | | 2019 | | Oncology | [place], | | | | | | [place] [address] | | +--------+ + + + + documented as of this encounter Visit Diagnoses Not on filedocumented in this encounter"
--- OUTSIDE RECORDS SUMMARY | ~2019-12-27 | XMS | Encounter Summary ---
Demographics + + + | Address | [address] | | | [place] [address] | + + + | Home Phone | | + + + | Preferred Language | Unknown | + + + | Marital Status | | + + + | Christian Affiliation | LUT | + + + [...] Team Providers + +------+ + | Care Plastics Design Engineer Name | Role | Phone | + [...] + + | 09/03/ | Hospital | [facility] | | | | 2020 | Encounter | Clinics at S | | | | | | [facility] [address] | | | | | | [facility] | | | | | | [facility], | | | | | | [address] | | | | | | [place], [place] | | | | | | [address] | | | | | | [phone] | | | +--------+ + + + [...] | | | | | [place], | | | | | | [place] [address] | | | | | | [phone] | | | | | | | | +--------+ + + + + | 01/14/ | Appointment | Hematology & | Onc, Gen [address] | | | 2019 | | Oncology | [place], | | | | | | [place] [address] | | +--------+ + + + + [...] DIFFERENTIAL | Routin | 09/04/2019 | Pancytopenia ([facility]) | Results for this | | | [...] + + + + | PRODUCT | [id number] | | [facility] | | | UNIT [...] + + + + | EXPIRATION | [id number] | | [facility] | | | DATE [...] + + + + | BLOOD | [id number] | | [facility] | | | PRODUCT [...] LABORATORY | [address] | [place] [address] | | | SERVICES, | [address] [...] | + + + + + | [facility] | [address] | [place] [address] | | | SERVICES, | [address] [...] [facility] | [address] | [place] [address] | | | SERVICES, | [address] [...] [facility] | [address] | [place] [address] | | | SERVICES, [facility] | [...] LABORATORY | [address] | [place] [address] | | | SERVICES, [facility] | | | | | HEALTH [...] | + + + + + | [facility] | [address] | [place] [address] | | | SERVICES, [facility] | | | | | HEALTH [...] | | | | | CENTER [facility] | | | | | | HEALTH [...] [facility] | [address] | [place] [address] | | | SERVICES, [facility] | | | | | HEALTH [...] LABORATORY | | | | | | [facility], | | | | | | [facility] | | | | | | [...] [facility] | [address] | [place] [address] | | | SERVICES, [facility] | | | | | HEALTH [...] [facility] | [address] | [place] [address] | | | SERVICES, | [address] | | | | TRANSFUSION MEDICINE | | | | + + + + + [facility] - COMPLETE METABOLIC SET (09/04/2019 10:49 AM [...] | | | LABORATORY | | | [place] | | | SERVICES, | | | [...] | + + + + + | [facility] | [address] | [place] [address] | | | SERVICES, [facility] | | | | | HEALTH [...]
--- OUTSIDE RECORDS SUMMARY | ~2019-12-27 | XMS | Encounter Summary ---
Demographics + + + | Address | [address] | | | [place] [address] | + + + | Home Phone [...] Team Providers + +------+ + | Care Insulation Cutter And Former Name | Role | Phone | + +------+ + | SilverioMargarita crawford SAMPLE FINISHER | PCP | | + +------+ + Encounter Details +--------+--------+ + + + | Date | Type | Department | Care Team | Description | +--------+--------+ + + + | 09/08/ | Travel | | | | | [...] in contact | No / Unsure | 09/09/2019 9:16 AM | | with someone who was [...] | | | | | | [place] [address] | | | | | | [phone] | | | | | | | | +--------+ + + + + | 01/14/ | Appointment | Hematology & | Onc, [address] | | | 2019 | | Oncology | [place] | | | | | | [place] [address] | | +--------+ + + + + documented as of this encounter Visit Diagnoses Not on filedocumented in this encounter"
--- OUTSIDE RECORDS SUMMARY | ~2019-12-27 | XMS | Encounter Summary ---
Demographics + + + | Address | [address] | | | [place] [address] | + + + | Home Phone | | + + + | Preferred Language | Unknown | + + + | Marital Status | | + + + | Anabaptist Affiliation | LUT | + + + | Race | White | + + + | Ethnic Group | Not or | + + + Author + + + | Author | [facility] | + + + | Organization | [facility] | + + + | [...] Team Providers + +------+ + | Care Cullet Washer Name | Role | Phone | + +------+ + | Margarita Patterson | PCP | | + +------+ + Reason for Visit + + + | Reason | Comments | + + + | Change of medication | Stop Levaquin, Start Cefpodoxime, Hold Antifungal Today | + + + Encounter Details +--------+ + + + + | Date | Type | Department | Care Team | Description | +--------+ + + + + | 11/27/ | Telephone | [facility] | Daysi Mccauley MD | Change of medication | | 2019 | | Clinics at S | [address] | (Stop Levaquin, | | | | [facility] [address] [place], | Start Cefpodoxime, | | | | [facility] | [place] [address] | Hold Antifungal | | | | Health and Healing, | [phone] | Today) | | | | [address] | | | | | | [place], [place] | | | | | | [address] | | | | | | [phone] | | | +--------+ + + + [...] | | | | | | [place] [address] | | | | | | [phone] | | | | | | | | +--------+ + + + + | 01/14/ | Appointment | Hematology & | Onc, [address] | | | 2020 | | Oncology | [place] | | | | | | [place] [address] | | +--------+ + + + + documented as of this encounter Visit Diagnoses Not on filedocumented in this encounter"
--- OUTSIDE RECORDS SUMMARY | ~2019-12-27 | XMS | Encounter Summary ---
Demographics + + + | Address | [address] | | | [place] [address] | + + + | Home Phone | | + + + | Preferred Language | Unknown | + + + | Marital Status | | + + + | Alevism Affiliation | LUT | + + + | Race | White | + + + | Ethnic Group | Not or | + + + Author + + + | Author | [facility] | + + + | Organization | [facility] | + + + | Address [...] Team Providers + +------+ + | Care Swahili Teacher Name | Role | Phone | + +------+ + | Margarita Patterson | PCP | | + +------+ + Reason for Visit + + + | Reason | Comments | + + + | Lab Draw | | + + + | Infusion | | + + + Encounter Details +--------+ + + + + | Date | Type | Department | Care Team | Description | +--------+ + + + + | 12/08/ | Hospital | [facility] | A, [address] | | | 2020 | Encounter | Clinics at S | [facility], | | | | | [address] | [place] [address] | | | | | [facility] | | | [facility], | | | | | | [address] | | | | | | [place], [place] | | | | | | [address] | | | | | | [phone] | | | +--------+ + + + [...] + + + | Blood Pressure | 113/46 | 12/09/2019 1:13 PM | | | | | PDT | | + + + + + | Pulse | 71 | 12/09/2019 1:13 PM | | | | | PDT | | + + + + + | Temperature | 37 C (98.6 F) | 12/09/2019 1:13 PM | | | | | PDT | | + + + + + | Respiratory Rate | 16 | 12/09/2019 1:13 PM | | | | | PDT | | + + + + + | Oxygen Saturation | 100% | 12/09/2019 1:13 PM | | | | | PDT | | + + + + + | Inhaled Oxygen | - | - | | | Concentration | | | | + + + + + | Weight | 97.1 kg (214 lb) | 12/09/2019 8:00 AM | | | | | PDT | | + + + + + | Height | - | - | | + + + + + | Body Mass Index | 34.54 | 12/04/2019 1:11 PM | | | | | PDT [...] + + + +---------+ + + | cefPODOxime 200 mg | Take 1 tablet by | 60 | 5 | 11/25/19 | | | oral tablet | mouth every twelve | tablet | | 20 | | | | hours. | | | | | + + [...] + + + +---------+ + + | DULoxetine 30 mg | Take 60 mg by mouth | | 0 | 10/31/19 | | | oral capsule,delayed | once daily. | | | 20 | | | release(DR/EC) | | | | | | + [...] + + + +---------+ + + | ruxolitinib | Take 1 tablet by | 60 | 4 | 09/12/19 | | | (JAKAFI) 5 mg oral | mouth two times | tablet | | 20 | | | tablet | daily. | | | | | + + + +---------+ + + documented as of this encounter Progress Notes Mor Escalera RN - 12/09/2019 8:10 AM PDT Assessment Fidelia arrives to clinic walking independently. Patient states she is feeling tired today. Patient with a history of myelofibrosis here for supportive care and MD visit. Fever/Chills/Infection: No SOB / Cough: Yes--ELAINE which she says happens when she needs blood. Fatigue/Dizziness/Lightheaded: Yes--worse today, though she is very anemic. Denies dizzines s, lighteheadedness. Signs/Symptoms Bleeding: No Neuropathy: No Mucositis: No Nausea/Vomiting: No Appetite: fair. Diarrhea/Constipation: Fidelia states she has BMs 1x weekly. Per pt, she has multiple stools one day a week, and none other days. Fidelia says this is her normal pattern and is not a rece nt change. PO Fluid Intake: 2L. Urinary Issues: No Rash/Skin/Edema: No Pain: No Lab PICC accessed per protocol. Good blood return noted. Appropriate waste discarded. Labs d rawn and sent. PICC pulse flushed with 20 mL NS. Patient scheduled for provider visit jarod bucio with Dr. Mccauley. Dressing Change PICC dressing is a tegaderm with CHG gel in the dressing, apparently from OSH. Dated as anitha nged yesterday, which pt corroborates. Drsg CDI. No change needed Education For education provided, see education tab. Supportive Care Lab Results Component Value Date HCT 19.2 12/09/2019 HB 6.5 12/09/2019 On pre-transfusion VS, Fidelia reported feeling chilled. Temp 100.2F. Notified Radha Freitas NP covering infusion and received VORB for london-Cx, hold blood until decision from primary MD. P aged Dr. Mccauley, agrees with cultures and received TORB for acetaminophen and ok to proceed with transfusion. Dr. Mccauley to review abx coverage and respond prn. T-max 101F, then declined to 99.2F. Orders to transfuse PRBC product for a Hematocrit today as above. Type and cross for 2 uni ts of PRBC was sent to [...] The patient was not premedicated. She received 2 units of PRBCs per Provider s orders. Transfusion was tolerated well without complication. Frequent vital signs were monitored th roughout the transfusion and reviewed by me. For transfusion details, see ONC Lines & Trans fusions doc flowsheet. 40 mEq PO KCL for level 3.4. Discharge Line care provided, see Flowsheet for details. Patient was instructed to check out at the [facility] desk prior to leaving the clinic. Patient d/c d via wheelchair and accompanied by [facility] CLERK for echo appt in [facility]. Mor Escalera RN documented in this encounte r Plan of Treatment +--------+ + + + + | Date | Type | Specialty | Care Team | Description | +--------+ + + + + | 01/14/ | Appointment | Cardiology | | | 2019 | | | [...] | | | | | | [place], | | | | | | [place] [address] | | | | | | [phone] | | | | | | | | +--------+ + + + + | 01/14/ | Appointment | Hematology & | Onc, [address] | | | 2019 | | Oncology | [place], | | | | | | [place] [address] | | +--------+ + + + + + + +--------+ + + | Name | Type | Priori | Associated Diagnoses | Order Schedule | | | | ty | | | + + +--------+ + + | MANUAL DIFFERENTIAL | Lab - | Routin | Pancytopenia (HCC) | 12/09/2019 until | | | [facility] | e | | discontinued, 1 | | | Performable | | | completed | | | s | | | | + + +--------+ + + | RBC MORPHOLOGY | Lab - | Routin | Pancytopenia (HCC) | 12/09/2019 until | | | [facility] | [...] | + +--------+ + + + | CULTURE, BLOOD BACTI | Routin | 12/09/2019 | Pancytopenia (HCC) | Results for this | | & YEAST [facility] | e | 10:27 AM | | procedure are in the | | | | PDT | | results section. | + +--------+ + + + | CULTURE, BLOOD BACTI | Routin | 12/09/2019 | Pancytopenia (HCC) | Results for this | | & YEAST [facility] | e | 10:27 AM | | procedure are in the | | | | PDT | | results section. | + +--------+ + + + | CULTURE, BLOOD BACTI | Routin | 12/09/2019 | Pancytopenia (HCC) | Results for this | | & YEAST | e | 10:27 AM | | procedure are in the | | | | PDT | | results section. | + +--------+ + + + | CULTURE, BLOOD BACTI | Routin | 12/09/2019 | Pancytopenia (HCC) | Results for this | | & YEAST | e | 10:27 AM | | procedure are in the | | | | PDT | | results section. | + +--------+ + + + | PRODUCT - RED CELLS | Routin | 12/09/2019 | | Results for this | | LEUKOREDUCED | e | 8:54 AM | | procedure are in the | | | | PDT | | results section. | + +--------+ + + + | HB-LAB | Routin | 12/09/2019 | Pancytopenia (HCC) | Results for this | | CROSSMATCH,ELECTRONI | e | 8:54 AM | | procedure are in the | | C | | PDT | | results section. | + +--------+ + + + | ANTIBODY SCREEN | Routin | 12/09/2019 | Pancytopenia (HCC) | Results for this | | | e | 8:19 AM | | procedure are in the | | | | PDT | | results section. | + +--------+ + + + | TYPE AND SCREEN | Routin | 12/09/2019 | Pancytopenia (HCC) | Results for this | | | e | 8:19 AM | | procedure are in the | | | | PDT | | results section. | + +--------+ + + + | ABO & RH TYPE | Routin | 12/09/2019 | Pancytopenia (HCC) | Results for this | | | e | 8:19 AM | | procedure are in the | | | | PDT | | results section. | + +--------+ + + + | [facility] - MAGNESIUM, | Routin | 12/09/2019 | Pancytopenia (HCC) | Results for this | | PLASMA | e | 8:13 AM | | procedure are in the | | | | PDT | | results section. | + +--------+ + + + | [facility] - PHOSPHORUS, | Routin | 12/09/2019 | Pancytopenia (HCC) | Results for this | | PLASMA | e | 8:13 AM | | procedure are in the | | | | PDT | | results section. | + +--------+ + + + | RBC MORPHOLOGY | Routin | 12/09/2019 | Pancytopenia (HCC) | Results for this | | | e | 8:13 AM | | procedure are in the | | | | PDT | | results section. | + +--------+ + + + | CBC AND AUTO DIFF | Routin | 12/09/2019 | Pancytopenia (HCC) | Results for this | | | e | 8:13 AM | | procedure are in the | | | | PDT | | results section. | + +--------+ + + + | MANUAL DIFFERENTIAL | Routin | 12/09/2019 | Pancytopenia (HCC) | Results for this | | | e | 8:13 AM | | procedure are in the | | | | PDT | | results section. | + +--------+ + + + | [facility] - COMPLETE | Routin | 12/09/2019 | Pancytopenia (HCC) | Results for this | | METABOLIC SET | e | 8:13 AM | | procedure are in the | | | | PDT | | results section. | + +--------+ + + + | [facility] CBC W | Routin | 12/09/2019 | Pancytopenia (HCC) | Results for this | | DIFFERENTIAL | e | 8:13 AM | | procedure are in the | | | | PDT | | results section. | + +--------+ + + + documented in this encounter Results [facility] - URINE, MICROSCOPIC (12/17/2019 7:56 AM PDT) + +-------+ + + + | Component | Value | Ref Range | Performed | Pathologist | | | | | At | Signature | + +-------+ + + + | RED CELLS | 0 | 0 - 3 /hpf | [facility] | | | | | | LABORATORY | | | | | | SERVICES, | | | | | | [facility] + | | | | | | [facility] | | + +-------+ + + + | WHITE CELLS | 1 | 0 - 5 /hpf | [facility] | | | | | | LABORATORY | | | | | | SERVICES, | | | | | | [facility] + | | | | | | [facility] | | + +-------+ + + + | BACTERIA | None | None /hpf | [facility] | | | | | | LABORATORY | | | | | | SERVICES, | | | | | | [facility] + | | | | | | [facility]ALING | | + +-------+ + + + | YEAST (LAB) | None | None /hpf | [facility] | | | | | | LABORATORY | | | | | | SERVICES, | | | | | | [facility] + | | | | | | [facility]ALING | | + +-------+ + + + | SQUAMOUS | Few | None, Few /hpf | [facility] | | | EPITHELIAL | | | LABORATORY | | | | | | SERVICES, | | | | | | [facility] | | | [facility] + | | | | | | HEALING | | + +-------+ + + + | MUCOUS | None | None, Few /hpf | [facility] | | | | | | LABORATORY | | | | | | SERVICES, | | | | | | [facility] | | [facility] + | | | | | | [facility]ALING | | + +-------+ + + + | NON-SQUAMOU | None | None /hpf | [facility] | | | S EPITH | | | LABORATORY | | | | | | SERVICES, | | | | | | [facility] | | [facility] + | | | | | | HEALING | | + +-------+ + + + | HYALINE | 0 | 0 - 2 /lpf | [facility] | | | CASTS | | | LABORATORY | | | | | | SERVICES, | | | | | | [facility] | | [facility] + | | | | | | HEALING | | + +-------+ + + + | GRANULAR | 0 | 0 - 2 /lpf | [facility] | | | CASTS | | | LABORATORY | | | | | | SERVICES, | | | | | | [facility] | | [facility] + | | | | | | HEALING | | + +-------+ + + + | CELLULAR | 0 | <=0 /lpf | [facility] | | | CASTS | | | LABORATORY | | | | | | SERVICES, | | | | | | [facility] | | | [facility] + | | | | | | [facility]ALING | | + +-------+ + + + | TRIPLE P04 | None | None, Few /hpf | [facility] | | | CRYSTALS | | | LABORATORY | | | | | | SERVICES, | | | | | | [facility] | | | [facility] + | | | | | | HEALING | | + +-------+ + + + | CALCIUM | None | None, Few /hpf | [facility] | | | OXALATE | | | LABORATORY | | | AMINTA | | | SERVICES, | | | | | | [facility] | | [facility] + | | | | | | HEALING | | + +-------+ + + + | URIC ACID | None | None, Few /hpf | [facility] | | | CRYSTALS | | | LABORATORY | | | | | | SERVICES, | | | | | | [facility] | | | | [facility] + | | | | | | HEALING | | + +-------+ + + + | AMORPHOUS | None | None, Few /hpf | [facility] | | | CRYSTALS | | | LABORATORY | | | | | | SERVICES, | | | | | | [facility] | | | [facility] + | | | | | | HEALING | | + +-------+ + + + + + | Specimen | + + | Urine - Urine | | (substance) | + + + + + + + | Performing | Address | City/State/Zipcode | Phone Number | | Organization | | | | + + + + + | [facility] | [address] | [place] [address] | | | [facility] | | | | | HEALTH + HEALING | | | | + + + + + [facility] - CULTURE, URINE SCREEN (12/17/2019 7:56 AM PDT) + + + + + + | Component | Value | Ref Range | Performed | Pathologist | | | | | At | Signature | + + + + + + | URINE | Negative | Negative | [facility] | | | SCREEN FOR | | | LABORATORY | | | CULTURE | | | SERVICES, | | | | | | [facility] | | | | | | [facility] + | | | | | | HEALING | | + + + + + + + + | Specimen | + + | Urine | + + + + + | Narrative | Performed At | + + + | Culture Screen Negative. Culture not indicated. | [facility] | | | LABORATORY | | | [facility], | | | [facility] | | | HE[facility] + | | | HEALING | + + + + + + + + | Performing | Address | City/State/Zipcode | Phone Number | | Organization | | | | + + + + + | [facility] | [address] | [place] [address] | | | SERVICES, [facility] | | | | | HE[facility] + HEALING | | | | + + + + + CULTURE, BLOOD BACTI & YEAST [facility] (12/09/2019 10:27 AM PDT) + + + + + + | Component | Value | Ref Range | Performed | Pathologist | | | | | At | Signature | + + + + + + | CULTURE | Final Report:No Bacteria | | [facility] | | | RESULT | or Yeast isolated at 5 | | LABORATORY | | | | days. | | SERVICES, | | | | | | CORE | | + + + + + + + + | Specimen | + + | Blood - Antecubital | | region structure | | (body structure) | + + + + + + + | Performing | Address | City/State/Zipcode | Phone Number | | Organization | | | | + + + + + | [facility] | [address] | [place] [address] | | | SERVICES, CORE | [address] | | | + + + + + CULTURE, BLOOD BACTI & YEAST [facility] (12/09/2019 10:27 AM PDT) + + + + + + | Component | Value | Ref Range | Performed | Pathologist | | | | | At | Signature | + + + + + + | CULTURE | Final Report:No Bacteria | | [facility] | | | RESULT | or Yeast isolated at 5 | | LABORATORY | | | | days. | | SERVICES, | | | | | | CORE | | + + + + + + + + | Specimen | + + | Blood | + + + + + + + | Performing | Address | City/State/Zipcode | Phone Number | | Organization | | | | + + + + + | [facility] | [address] | [place] [address] | | | SERVICES, CORE | [address] | | | + + + + + PRODUCT - RED CELLS LEUKOREDUCED (12/09/2019 8:54 AM PDT) + + + + + [...] + + + + | PRODUCT | [id number] | | [facility] | | | UNIT [...] + + + + | EXPIRATION | [id number] | | [facility] | | | DATE [...] + + + + | BLOOD | [id number] | | [facility] | | | PRODUCT [...] | + + + + + | [facility] | [address] | [place] [address] | | | SERVICES, | [address] | | | | TRANSFUSION MEDICINE | | | | + + + + + PRODUCT - RED CELLS LEUKOREDUCED (12/09/2019 8:54 AM PDT) + + + + + [...] + + + + | PRODUCT | [id number] | | [facility] | | | UNIT [...] + + + + | EXPIRATION | [id number] | | [facility] | | | DATE [...] + + + + | BLOOD | [id number] | | [facility] | | | PRODUCT [...] [facility] | [address] | [place] [address] | | | SERVICES, | [address] | | | | TRANSFUSION MEDICINE | | | | + + + + + ANTIBODY SCREEN (12/09/2019 8:19 AM PDT) + + + + + [...] [facility] | [address] | [place] [address] | | | SERVICES, | [address] | | | | TRANSFUSION MEDICINE | | | | + + + + + ABO & RH TYPE (12/09/2019 8:19 AM PDT) + + + + + [...] | + + + + + | [facility] | [address] | [place] [address] | | | MEGAN, | [address] | | | | TRANSFUSION MEDICINE | | | | + + + + + RBC MORPHOLOGY (12/09/2019 8:13 AM PDT) + +---------+ + + + | Component | Value | Ref Range | Performed | Pathologist | | | | | At | Signature | + +---------+ + + + | CARMEN | Present | | [facility] | | | | | | LABORATORY | | | | | | SERVICES, | | | | | | [facility] | | | | | | [facility] + | | | | | | HEALING | | + +---------+ + + + + + | Specimen | + + | Blood - Blood | | (substance) | + + + + + + + | Performing | Address | City/State/Zipcode | Phone Number | | Organization | | | | + + + + + | [facility] | [address] | [place] [address] | | | [facility] | | | | | HEALTH + HEALING | | | | + + + + + MANUAL DIFFERENTIAL (12/09/2019 8:13 AM PDT) + + + + + + | Component | Value | Ref Range | Performed | Pathologist | | | | | At | Signature | + + + + + + | NEUTROPHIL | 46.8 (L) | 50.0 - 70.0 % | [facility] | | | % | | | LABORATORY | | | | | | [facility], | | | | | | [facility] | | | | | | [facility] + | | | | | | HEALING | | + + + + + + | LYMPHOCYTE | 37.6Comment: This is a | 18.0 - 42.0 % | [facility] | | | % | corrected result. | | LABORATORY | | | | Previous result was 35.8 | | SERVICES, | | | | % on 12/09/2019 at 0938 | | [facility] | | | | PDT. | | HEALTH + | | | | | | HEALING | | + + + + + + | MONOCYTE % | 5.5 | 3.5 - 9.0 % | [facility] [...] + + + | BASOPHIL % | 1.8 | 0.0 - 2.0 % | [facility] [...] + + + + | ATYPICAL | 8.3 (HH)Comment: | 0.0 % | [facility] | | | CELL % | Atypical cells with fine | | LABORATORY | | | | chromatin, high N:C | | SERVICES, | | | | ratio, prominent | | [facility] | | | | nucleoli and dark blue | | HEALTH + | | | | cytoplasm. This is a | | HEALING | | | | corrected result. | | | | | | Previous result was 10.1 | | | | | | % on 12/09/2019 at 0938 | | | | | | PDT. | | | | + + + + + + | NEUTROPHIL | 1.24 (L) | 1.80 - 7.70 | [facility] | | | # | | K/cu mm | LABORATORY | | | | | | SERVICES, | | | | | | [facility] | | | | | | [facility] + | | | | | | HEALING | | + + + + + + | LYMPHOCYTE | 1.00Comment: This is a | 1.00 - 4.80 | [facility] | | | # | corrected result. | K/cu mm | LABORATORY | | | | Previous result was 0.95 | | SERVICES, | | | | K/cu mm on 12/09/2019 at | | [facility] | | | | 0938 PDT. | | HEALTH + | | | | | | HEALING | | + + + + + + | MONOCYTE # | 0.15 | 0.10 - 0.90 | [facility] | [...] + + + | BASOPHIL # | 0.05 | 0.00 - 0.10 | [facility] | [...] + + + + | ATYPICAL | 0.22Comment: This is a | K/cu mm | [facility] | | | CELLS # | corrected result. | | LABORATORY | | | | Previous result was 0.27 | | SERVICES, | | | | K/cu mm on 12/09/2019 at | | [facility] FOR | | | | 0938 PDT. | | HEALTH + | | | [...] LABORATORY | [address] | [place] [address] | | | [facility] | | | | | HEALTH + HEALING | | | | + + + + + CBC AND AUTO DIFF (12/09/2019 8:13 AM PDT) + + + + + + | Component | Value | Ref Range | Performed | Pathologist | | | | | At | Signature | + + + + + + | WHITE CELL | 2.66 (L) | 3.50 - 10.80 | [facility] | | | COUNT | | K/cu mm | LABORATORY | | | | | | SERVICES, | | | | | | [facility] | | | | | [facility] + | | | | | | HEALING | | + + + + + + | RED CELL | 2.20 (L) | 4.00 - 5.20 | [facility] | | | COUNT | | M/cu mm | LABORATORY | | | | | | SERVICES, | | | | | | [facility] | | | | | | [facility] + | | | | | | HEALING | | + + + + + + | HEMOGLOBIN | 6.5 (LL) | 12.0 - 16.0 | [facility] | | | | | g/dL | LABORATORY | | | | | | SERVICES, | | | | | | [facility] | | | | | | [facility] + | | | | | | HEALING | | + + + + + + | HEMATOCRIT | 19.2 (LL) | 36.0 - 46.0 % | [facility] | | | | | | LABORATORY | | | | | | SERVICES, | | | | | | [facility] | | | | | | [facility] + | | | | | | HEALING | | + + + + + + | MCV | 87.3 | 80.0 - 100.0 fL | [facility] | | | | | | LABORATORY | | | | | | SERVICES, | | | | | | [facility] | | | | | | [facility] + | | | | | | HEALING | | + + + + + + | MCHC | 33.9 | 32.0 - 36.0 | [facility] | | | | | g/dL | LABORATORY | | | | | | SERVICES, | | | | | | [facility] | | | | | | [facility] + | | | | | | HEALING | | + + + + + + | RDW SD | 43.8 | 35.1 - 46.3 fL | [facility] | | | | | | LABORATORY | | | | | | SERVICES, | | | | | | [facility] | | | | | | [facility] + | | | | | | HEALING | | + + + + + + | PLATELET | 21 (L) | 150 - 400 K/cu | [...] + + + + | NRBC% | 2.3 (H) | 0.0 - 0.3 % | [facility] | | | | | | LABORATORY | | | | | | SERVICES, | | | | | | [facility] | | | | | | [facility] + | | | | | | HEALING | | + + + + + + | NRBC# | 0.06 (H) | 0.00 - 0.02 | [facility] | | | | | K/cu mm | LABORATORY | | | | | | SERVICES, | | | | | | [facility] | | | | | | [facility] + | | | | | | HEALING | | + + + + + + | NEUTROPHIL | 1.16 (L)Comment: | 1.80 - 7.70 | [facility] [...] LABORATORY | [address] | [place] [address] | | | SERVICES, [facility] | | | | | HE[facility] + HEALING | | | | + + + + + [facility] - PHOSPHORUS, PLASMA (12/09/2019 8:13 AM PDT) + +-------+ + + + | Component | Value | Ref Range | Performed | Pathologist | | | | | At | Signature | + +-------+ + + + | PHOSPHORUS, | 3.7 | 2.4 - 4.7 mg/dL | [facility] [...] | + + + + + | [facility] | [address] | [place] [address] | | | SERVICES, [facility] | | | | | HE[facility] + HEALING | | | | + + + + + [facility] - MAGNESIUM, PLASMA (12/09/2019 8:13 AM PDT) + +-------+ + + + [...] LABORATORY | [address] | [place] [address] | | | SERVICES, [facility] | | | | | HEALTH + HEALING | | | | + + + + + [facility] - COMPLETE METABOLIC SET (12/09/2019 8:13 AM PDT) + +---------+ + + + | Component | Value | Ref Range | Performed | Pathologist | | | | | At | Signature | + +---------+ + + + | GLUCOSE, | 228 (H) | 70 - 99 mg/dL | [facility] | | | PLASMA | | | LABORATORY | | | (LAB) | | | SERVICES, | | | | | | [facility] | | | | | [facility] + | | | | | | HEALING | | + +---------+ + + + | BUN, PLASMA | 15 | 6 - 20 mg/dL | [facility] | | | (LAB) | | | LABORATORY | | | | | | SERVICES, | | | | | | [facility] | | | | | | [facility] + | | | | | | HEALING | | + +---------+ + + + | CREATININE | 0.72 | 0.60 - 1.10 | [facility] | | | PLASMA | | mg/dL | LABORATORY | | | (LAB) | | | SERVICES, | | | | | | [facility] | | | | | | [facility] + | | | | | | HEALING | | + +---------+ + + + | EGFR | >60 | >60 mL/min | [facility] | | | - | | | LABORATORY | | | [place] | | | SERVICES, | | | | | | [facility] | | | | | | [facility] + | | | | | | HEALING | | + +---------+ + + + | EGFR NON | >60 | >60 mL/min | [facility] | | | -[facility] | | | LABORATORY | | | [facility] | | | SERVICES, | | | | | | [facility] | | | | | | [facility] + | | | | | | HEALING | | + +---------+ + + + | SODIUM, | 135 (L) | 136 - 145 | [facility] | | | PLASMA | | mmol/L | LABORATORY | | | (LAB) | | | SERVICES, | | | | | | [facility] | | | | | | [facility] + | | | | | | HEALING | | + +---------+ + + + | POTASSIUM, | 3.4 | 3.4 - 5.0 | [facility] | | | PLASMA | | mmol/L | LABORATORY | | | (LAB) | | | SERVICES, | | | | | | [facility] | | | | | | [facility] + | | | | | | HEALING | | + +---------+ + + + | CHLORIDE, | 99 | 97 - 108 mmol/L | [facility] | | | PLASMA | | | LABORATORY | | | (LAB) | | | SERVICES, | | | | | | [facility] | | | | | | [facility] | | + +---------+ + + + | TOTAL CO2, | 26 | 21 - 32 mmol/L | [facility] | | | PLASMA | | | LABORATORY | | | (LAB) | | | SERVICES, | | | | | | [facility] | | | | | | [facility] | | + +---------+ + + + | CALCIUM, | 8.2 (L) | 8.6 - 10.2 | [facility] | | | PLASMA | | mg/dL | LABORATORY | | | (LAB) | | | SERVICES, | | | | | | [facility] | [facility] | | | | | | [facility] | | + +---------+ + + + | CALCIUM(ALB | 9.0 | 8.6 - 10.2 | [facility] | | | CORRECTED) | | mg/dL | LABORATORY | | | | | | SERVICES, | | | | | | [facility] | | | | | | [facility] | | + +---------+ + + + | BILIRUBIN | 0.6 | 0.3 - 1.2 mg/dL | [facility] | | | TOTAL | | | LABORATORY | | | | | | SERVICES, | | | | | | [facility] | | | | | | [facility] | | + +---------+ + + + | TOTAL | 6.9 | 6.4 - 8.2 g/dL | [facility] | | | PROTEIN, | | | LABORATORY | | | PLASMA | | | SERVICES, | | | (LAB) | | | [facility] + | | | | | | [facility] | | + +---------+ + + + | ALBUMIN, | 3.0 (L) | 3.5 - 4.7 g/dL | [facility] | | | PLASMA | | | LABORATORY | | | (LAB) | | | SERVICES, | | | | | | [facility] + | | | | | | [facility] | | + +---------+ + + + | ALK PHOS | 259 (H) | 53 - 141 U/L | [facility] | | | | | | LABORATORY | | | | | | SERVICES, | | | | | | [facility] | | | | | | [facility] | | + +---------+ + + + | AST(SGOT) | 13 | <=41 U/L | [facility] | | | | | | LABORATORY | | | | | | SERVICES, | | | | | | [facility] + | | | | | | [facility] | | + +---------+ + + + | ALT (SGPT) | 26 | <=60 U/L | [facility] | | | | | | LABORATORY | | | | | | SERVICES, | | | | | | [facility] + | | | | | | [facility] | | + +---------+ + + + | ANION GAP | 10 | 4 - 11 mmol/L | [facility] | | | | | | LABORATORY | | | | | | SERVICES, | | | | | | [facility] | | | | | | [facility] | | + +---------+ + + + | ANION | 12 (H) | 4 - 11 mmol/L | [facility] | | | GAP(ALB | | | LABORATORY | | | CORRECTED) | | | SERVICES, | | | | | | [facility] | | | | | | [facility] | | + +---------+ + + + | POTASSIUM | No Hemo | | [facility] | | | [facility] | | | LABORATORY | | | | | | SERVICES, | | | | | | [facility] + | | | | | | [facility] | | + +---------+ + + + | [facility] | No Hemo | | [facility] | | | | | | LABORATORY | | | | | | SERVICES, | | | | [facility] | | | | | | [facility] | | + +---------+ + + + | AST CMNT | No Hemo | | [facility] | | | | | | LABORATORY | | | | | | SERVICES, | | | | | | [facility] + | | | | | | [facility] | | + +---------+ + + + | BUN/CREATIN | 21 | 8 - 25 | [facility] | | | INE RATIO | | | LABORATORY | | | | | | SERVICES, | | | | | | [facility] + | | | | | | [facility]AL[facility] | | + +---------+ + + + | GLOBULIN | 3.9 (H) | 2.3 - 3.5 gm/dL | [facility] | | | LVL | | | LABORATORY | | | | | | SERVICES, | | | | | | [facility] + | | | | | | [facility]AL[facility] | | + +---------+ + + + | ALBUMIN/ASHA | 0.8 | 0.7 - 2.8 | [facility] | | | BULIN RATIO | | | LABORATORY | | | | | | SERVICES, | | | | | | [facility] | [facility] + | | | | | | [facility]ALING | | + +---------+ + + + + + | Specimen | + + | Blood - Blood | | (substance) | + + + + + | Narrative | Performed At | + + + | GFR is estimated using the MDRD equation recommended by the National | [facility] | | Kidney Disease Education Program. Estimated [...] | + + + + + | [facility] | [address] | [place] [address] | | | SERVICES, [place] | | | | | HEALTH [...] | acetaminophen (TYLENOL) tablet | Given | 12/09/19 | 650 mg | | | | 650 mg 650 mg, oral, ONCE, 1 | | 20 10:50 | | | | | doseBrandin 12/09/19 at 1045 | | AM PDT | | | | + +--------+ +--------+------+------+ +---+---+ | | | +---+---+ + +-------+ +--------+---+---+ | potassium chloride (KLOR-CON M) | Given | 07/07/20 | 40 mEq | | | | tablet 40 mEq 40 mEq, oral, | | 20 10:49 | | | | | ONCE, 1 dose, Brandin 12/09/19 at 0915 | | AM PDT | | | | + +-------+ +--------+---+---+ +---+---+ | | | +---+---+ documented in this encounter"
--- OUTSIDE RECORDS SUMMARY | ~2019-12-27 | XMS | Encounter Summary ---
Demographics + + + | Address | [address] | | | [place] [address] | + + + | Home Phone | | + + + | Preferred Language | Unknown | + + + | Marital Status | | + + + | Hoahaoism Affiliation | LUT | + + + | Race | White | + + + | Ethnic Group | Not or | + + + Author + + + | Author | [facility] | + + + | Organization | [facility] | + + + | Address [...] Team Providers + +------+ + | Care Mold Filling Operator Name | Role | Phone | + +------+ + | Oz Rodriguez MD | PCP | | + +------+ + Encounter Details +--------+ + + + + | Date | Type | Department | Care Team | Description | +--------+ + + + + | 12/01/ | MyChart | Diagnostic Imaging | | Appointment Reminder | | 2020 | Encounter | [address] | | | [address] | | | | | | [place], [place] | | | | | | [address] | | | +--------+ + + + [...] in contact | No / Unsure | 12/04/2019 12:57 PM | | with someone who was [...] | | | | | [place] [facility] | | | | | | [place] [address] | | | | | | [phone] | | | | | | | | +--------+ + + + + | 01/14/ | Appointment | Hematology & | Onc, Gen [address] | | | 2020 | | Oncology | [place] | | | | | | [place] [address] | | +--------+ + + + + documented as of this encounter Visit Diagnoses Not on filedocumented in this encounter"
--- OUTSIDE RECORDS SUMMARY | ~2019-12-27 | XMS | Encounter Summary ---
Demographics + + + | Address | [address] | | | [place] [address] | + + + | Home Phone | | + + + | Preferred Language | Unknown | + + + | Marital Status | | + + + | Adventism Affiliation | LUT | + + + | Race | White | + + + | Ethnic Group | Not or | + + + Author + + + | Author | [facility] | + + + | Organization | [facility] | + + + | [...] Providers + +------+ + | Care Automobile Parts Assembler Name | Role | Phone | + +------+ + | Oz Rodriguez MD | PCP | | + +------+ + Reason for Visit + + + | Reason | Comments | + + + | Care Coordination | | + + + | Care Coordination | NURSE [id number] call about 08/18 appt | + + + Encounter Details +--------+ + + + + | Date | Type | Department | Care Team | Description | +--------+ + + + + | 08/11/ | Telephone | [facility] | Daysi Mccauley MD | Care Coordination; | | 2019 | | Clinics at S | [address] [facility] | Care Coordination | | | | [facility] | [place] [place], | (NURSE | | | | [facility] | [place] [address] | [id number] | | | | Health and Healing, | [phone] | call about 08/18 | | | | [address] | | appt) | | | | [place] | | | | | | [address] | | | | | | [phone] | | | +--------+ + + + [...] | | | | | [place], | | | | | | [place] [address] | | | | | | [phone] | | | | | | | | +--------+ + + + + | 01/14/ | Appointment | Hematology & | Onc, Gen [address] | | | 2020 | | Oncology | [place], | | | | | | [place] [address] | | +--------+ + + + + documented as of this encounter Visit Diagnoses Not on filedocumented in this encounter"
--- OUTSIDE RECORDS SUMMARY | ~2019-12-27 | XMS | Encounter Summary ---
Demographics + + + | Address | [address] | | | [place] [address] | + + + | Home Phone | | + + + | Preferred Language | Unknown | + + + | Marital Status | | + + + | Buddhist Affiliation | LUT | + + + | Race | White | + + + | Ethnic Group | Not or | + + + Author + + + | Author | [facility] | + + + | Organization | [facility] | + + + | Address [...] Team Providers + +------+ + | Care Mechanical Apprentice Name | Role | Phone | + [...] | [facility] [address] [place], | | | | | [facility] | [place] [address] | | | | | Health and Healing, | | | | | | [address] | | | | | | [place], [place] | | | | | | [address] | | | | | | [phone] | | | +--------+ + + + [...] | | | | | | [place] [address] | | | | | | [phone] | | | | | | | | +--------+ + + + + | 01/14/ | Appointment | Hematology & | Onc, Gen [address] | | | 2019 | | Oncology | [place], | | | | | | [place] [address] | | +--------+ + + + + documented as of this encounter Visit Diagnoses Not on filedocumented in this encounter"
--- OUTSIDE RECORDS SUMMARY | ~2019-12-27 | XMS | Clinical Summary ---
Demographics + + + | Address | [address] | | | [place] [address] | + + + | Home Phone | | + + + | Preferred Language | Unknown | + + + | Marital Status | | + + + | Mormon Affiliation | Unknown | + + + | Race | Unknown | + + + | Ethnic Group | Unknown | + + + Author + + + | Author | [facility] | | | and [place] | + + + | Organization | [facility] | | | and [place] | + + + | Address | Unknown | + + + | Phone | Unavailable | + + + Support + + +---------+ + | Name | Relationship | Address | Phone | + + +---------+ + | Sky Pickett | ECON | Unknown | | + + +---------+ + Care Team Providers + +------+ + | Care Slab Polisher Name | Role | Phone | + +------+ + | No, Physician | PCP | Unavailable | + +------+ + Allergies No Known Allergies Medications + + + +---------+------+------+-------+ | Medication | Sig | Dispensed | Refills | Star | End | Statu | | | | | | t | Date | s | | | | | | Date | | | + + + +---------+------+------+-------+ | SYNTHROID 25 MCG | Take 25 mcg by mouth | | 0 | 04/0 | | Activ | | tablet | daily. | | | 2/20 | | e | | | | | | 18 | | | + + + +---------+------+------+-------+ | | Take by mouth | | 0 | 04/0 | | Activ | | losartan-hydrochloro | daily. | | | 2/20 | | e | | thiazide (HYZAAR) | | | | 18 | | | | 100-25 MG per tablet | | | | | | | + + + +---------+------+------+-------+ | sertraline | Take 50 mg by mouth | | 0 | 11/1 | | Activ | | (ZOLOFT) 50 mg | Daily. | | | 5/20 | | e | | tablet | | | | 19 | | | + + + +---------+------+------+-------+ Active Problems Not on file Encounters +--------+ + + + + | Date | Type | Specialty | Care Team | Description | +--------+ + + + + | 11/17/ | Telephone | Neurology | Victor Manuel Amaya, | Results | | 2020 | | | MD | | +--------+ + + + + from Last 3 Months Family History + +------+ + + | Relation | Name | Status | Comments | + +------+ + + | Father | | | | + +------+ + + | Mother | | | | + +------+ + + Social History + +-------+ +--------+------+ [...] +---------+ + | Yes | | | Occasionally | + + +---------+ + + + + | Sex Assigned at | Date Recorded | | | | + + + | Not on file | | + + + Last Filed Vital Signs + + + + + | Vital Sign | Reading | Time Taken | Comments | + + + + + | Blood Pressure | 154/81 | 05/12/2019 9:08 AM | | | | | PST | | + + + + + | Pulse | 60 | 05/12/2019 9:08 AM | | | | | PST | | + + + + + | Temperature | - | - | | + + + + + | Respiratory Rate | - | - | | + + + + + | Oxygen Saturation | 98% | 05/12/2019 9:08 AM | | | | | PST | | + + + + + | Inhaled Oxygen | - | - | | | Concentration | | | | + + + + + | Weight | 108 kg (238 lb) | 05/12/2019 9:08 AM | | | | | PST | | + + + + + | Height | 170.2 cm (5' 7") | 05/12/2019 9:08 AM | | | | | PST | | + + + + + | Body Mass Index | 37.28 | 05/12/2019 9:08 AM | | | | | PST | | + + + + + Plan of Treatment + + + + + | Health Maintenance | Due Date | Last | Comments | | | | Done | | + + + + + | Hepatitis C | | | | | Screening | 0 | | | + + + + + | Med Mgmt: Cr | | | | | | 0 | | | + + + + + | Med Mgmt: K | | | | | | 0 | | | + + + + + | Med Mgmt: Na | | | | | | 0 | | | + + + + + | Med Mgmt: TSH | | | | | | 0 | | | + + + + + | Medication | | | | | Management | 0 | | | + + + + + | Colorectal Cancer | | | | | Screening | 0 | | | | (Colonoscopy) | | | | + + + + + | Breast Cancer | | | | | Screening | 5 | | | + + + + + | Vaccine: Zoster (2 | | 04/21/20 | | | of 3) | 4 | 13 | | + + + + + | Vaccine: | | | | | Pneumococcal 65+ (1 | 5 | | | | of 1 - PPSV23) | | | | + + + + + | Adult Annual | | | | | Wellness Visit | 9 | | | + + + + + | Vaccine: Influenza | | 02/18/20 | | | (#1) | 0 | 19, | | | | | 02/18/20 | | | | | 19, | | | | | 02/18/20 | | | | | 19, | | | | | Addition | | | | | al | | | | | history | | | | | exists | | + + + + + | Vaccine: | | 01/09/20 | | | Dtap/Tdap/Td (2 - | 2 | 12 | | | Td) | | | | + + + + + Results Not on filefrom Last 3 Months Insurance + +--------+ +--------+ +---------+--------+ | Payer | Benefi | Subscriber | Effect | Phone | Address | Type | | | t Plan | ID | agus | | | | | | / | | Dates | | | | | | Group | | | | | | + +--------+ +--------+ +---------+--------+ | MEDICARE | MEDICA | [id number] | | [phone] | | Medica | | | RE | | 015-Pr | 5 | | re | | | PART A | | esent | | | | | | AND B | | | | | | + +--------+ +--------+ +---------+--------+ | [employer] | MUTUAL | [id number] | | [phone] | | Indemn | | | AND | | 015-Pr | 0 | | ity | | | [place] | | esent | | | | | | [place] | | | | | | | | MDCR | | | | | | | | SUPPL | | | | | | + +--------+ +--------+ +---------+--------+ | [employer] | MUTUAL | [id number] | | [phone] | | Indemn | | | AND | | 015-Pr | 0 | | ity | | | [place] | | esent | | | | | | [place] | | | | | | | | MDCR | | | | | | | | SUPPL | | | | | | + +--------+ +--------+ +---------+--------+ | MEDICARE | MEDICA | [id number] | | [phone] | | Medica | | | RE | | 019-Pr | 5 | | re | | | PART A | | esent | | | | | | AND B | | | | | | + +--------+ +--------+ +---------+--------+ + +--------+ +--------+ + + | Guarantor Name | Accoun | Relation to | Date | Phone | Billing Address | | | t Type | Patient | of | | | | | | | | | | + +--------+ +--------+ + + | Fidelia Pickett | Person | Self | [birth year] | [address] | | | al/Fam | | 1950 | [phone] | [place] [address] | | | rachid | | | 7 (Home) | | | | | | | [phone] | | | | | | | 5 (Work) | | + +--------+ +--------+ + + | Fidelia Pickett | Person | Self | [birth year] | | [address] | | | al/Fam | | 1950 | [phone] | [place] [address] | | | rachid | | | 7 (Home) | | | | | | | [phone] | | | | | | | 5 (Work) | | + +--------+ +--------+ + + Advance Directives + + + + + | Type | Date Recorded | Patient | Explanation | | | | Composing Room Machinist | | + + + + + | Power of | | | | | Cuffer | | | | + + + + + | Advance | | | | | Directive | | | | + + + + +
--- OUTSIDE RECORDS SUMMARY | ~2019-12-27 | XMS | Encounter Summary ---
Demographics + + + | Address | [address] | | | [place] [address] | + + + | Home Phone [...] + + + | Author | [facility] | + + + | Organization | [facility] | + + + | [...] Team Providers + +------+ + | Care Document Processor Name | Role | Phone | + +------+ + | Oz Rodriguez MD | PCP | | + +------+ + Encounter Details +--------+ + + + + | Date | Type | Department | Care Team | Description | +--------+ + + + + | 08/27/ | Pharmacy | Pharmacy @ [facility] | | | | 2019 | Visit | [address] | | | | | | [place] Mailcode: | | | | | | [facility] | | | | | | [address], | | | | | | [address] | | | | | | [place], [place] | | | | | | [address] | | | +--------+ + + + [...] | | | | | [place], | | | | | | [place] [address] | | | | | | [phone] | | | | | | | | +--------+ + + + + | 01/14/ | Appointment | Hematology & | Onc, Gen [address] | | | 2020 | | Oncology | [address] [place], | | | | | | [place] [address] | | +--------+ + + + + documented as of this encounter Visit Diagnoses Not on filedocumented in this encounter"
--- OUTSIDE RECORDS SUMMARY | ~2019-12-27 | XMS | Encounter Summary ---
Demographics + + + | Address | [address] | | | [place] [address] | + + + | Home Phone | | + + + | Preferred Language | Unknown | + + + | Marital Status | | + + + | Mormon Affiliation | LUT | + + + [...] Team Providers + +------+ + | Care Grill Chef Name | Role | Phone | + [...] | +--------+ + + + + | 12/02/ | Telephone | [facility] | Daysi Mccauley MD | Covid19 Screening | | 2020 | | Clinics at S | [address] [facility] | | | | | [facility] [address] [place], | | | | | [facility] | [place] [address] | | | | | Health and Healing, | [phone] | | | | | [facility] [address] | | | | | | [place], [place] | | | | | | [address] | | | | | | [phone] | | | +--------+ + + + [...] | 01/14/ | Office | Hematology | aDysi Mccauley MD | | | 2019 | Visit | Malignancy | [address] | | | | | | [place], | | | | | | [place] [address] | | | | | | [phone] | | | | | | | | +--------+ + + + + | 01/14/ | Appointment | Hematology & | Onc, Gen [address] | | | 2019 | | Oncology | [place], | | | | | | [place] [address] | | +--------+ + + + + documented as of this encounter Visit Diagnoses Not on filedocumented in this encounter"
--- OUTSIDE RECORDS SUMMARY | ~2019-12-27 | XMS | Encounter Summary ---
Demographics + + + | Address | [address] | | | [place] [address] | + + + | Home Phone | | + + + | Preferred Language | Unknown | + + + | Marital Status | | + + + | Christianity Affiliation | LUT | + + + | Race | White | + + + | Ethnic Group | Not or | + + + Author + + + | Author | [facility] | + + + | Organization | [facility] | + + [...] Team Providers + +------+ + | Care Cutter And Paster Press Clippings Name | Role | Phone | + +------+ + | Oz Rodriguez MD | PCP | | + +------+ + Reason for Visit + + + | Reason | Comments | + + + | Care Coordination | | + + + Encounter Details +--------+ + + + + | Date | Type | Department | Care Team | Description | +--------+ + + + + | 08/24/ | Telephone | [facility] | Daysi Mccauley MD | Care Coordination | | 2020 | | Clinics at S | [address] [facility] | | | | | [place] [address] [place], | | | | | [facility] | [place] [address] | | | | | Health and Healing, | [phone] | | | | | [address] | | | | | | [place], [place] | | | | | | [address] | | | | | | [phone] | | | +--------+ + + + [...] in contact | No / Unsure | 08/26/2019 9:33 AM | | with someone who was [...] | | | | | | [place] [address] | | | | | | [phone] | | | | | | | | +--------+ + + + + | 01/14/ | Appointment | Hematology & | Onc, [address] | | | 2019 | | Oncology | [place] | | | | | | [place] [address] | | +--------+ + + + + documented as of this encounter Visit Diagnoses Not on filedocumented in this encounter"
--- OUTSIDE RECORDS SUMMARY | ~2019-12-27 | XMS | Encounter Summary ---
Demographics + + + | Address | [address] | | | [place] [address] | + + + | Home Phone | | + + + | Preferred Language | Unknown | + + + | Marital Status | | + + + | Mosque Affiliation | LUT | + + + | Race | White | + + + | Ethnic Group | Not or | + + + Author + + + | Author | [facility] | + + + | Organization | [facility] | + + + | [...] Team Providers + +------+ + | Care Fiscal Services Manager Name | Role | Phone | + +------+ + | Oz Rodriguez MD | PCP | | + +------+ + Encounter Details +--------+ + + + + | Date | Type | Department | Care Team | Description | +--------+ + + + + | 12/14/ | Pharmacy | Pharmacy @ [facility] | | | | 2020 | Visit | [address] | | | | | | [place] Mailcode: | | | | | | [facility] | | | | | | and [address], | | | | | | [address] | | | | | | [place], [place] | | | | | | [address] | | | +--------+ + + + [...] | | | | | [place], | | | | | | [place] [address] | | | | | | [phone] | | | | | | | | +--------+ + + + + | 01/14/ | Appointment | Hematology & | Onc, Gen [address] | | | 2020 | | Oncology | [address] [place], | | | | | | [place] [address] | | +--------+ + + + + documented as of this encounter Visit Diagnoses Not on filedocumented in this encounter"
--- OUTSIDE RECORDS SUMMARY | ~2019-12-27 | XMS | Encounter Summary ---
Demographics + + + | Address | [address] | | | [place] [address] | + + + | Home Phone | | + + + | Preferred Language | Unknown | + + + | Marital Status | | + + + | Muslim Affiliation | LUT | + + + | Race | White | + + + | Ethnic Group | Not or | + + + Author + + + | Author | [facility] | + + + | Organization | [facility] | + + + | Address [...] Team Providers + +------+ + | Care Job Development Specialist Name | Role | Phone | + +------+ + | Oz Rodriguez MD | PCP | | + +------+ + Encounter Details +--------+ + + + + | Date | Type | Department | Care Team | Description | +--------+ + + + + | 08/10/ | Damper Worker | [facility] | Sheri Rosado, | MDS (myelodysplastic | | 2020 | | Clinics at S | MD [address] | syndrome) (HCC) | | | | [place] [address] | (Primary Dx) | | | | [facility] | [place], [place] | | | | | Health and Healing, | [address] | | | | | [address] | [phone] | | | | | [place], [place] | | | | | | [address] | | | | | | [phone] | | | +--------+ + + + [...] +--------+ + + + + | 01/14/ Appointment | Cardiology | | | | [...] | | | | | | [place] [address] | | | | | | [phone] | | | | | | | | +--------+ + + + + | 01/14/ | Appointment | Hematology & | Onc, Gen [address] | | | 2019 | | Oncology | [place] | | | | | | [place] [address] | | +--------+ + + + + documented as of this encounter Results INR (08/11/2019 2:30 PM PDT) + +-------+ + + + | Component | Value | Ref Range | Performed | Pathologist | | | | | At | Signature | + +-------+ + + + | INR | 1.13 | 0.90 - 1.20 INR | [facility] [...] | + + + + + | [facility] | [address] | [place] [address] | | | SERVICES, CORE | [address] | | | + + + + + CK, PLASMA (08/11/2019 2:30 PM PDT) + +-------+ + + + | Component | Value | Ref Range | Performed | Pathologist | | | | | At | Signature | + +-------+ + + + | CK | 43 | 38 - 234 U/L | [facility] | | | | [...] [facility] | [address] | [place] [address] | | | SERVICES, CORE | [address] | | | + + + + + documented in this encounter Visit Diagnoses + + | Diagnosis | + + | MDS (myelodysplastic syndrome) (HCC) - Primary Myelodysplastic syndrome, unspecified | + + documented in this encounter"
--- OUTSIDE RECORDS SUMMARY | ~2019-12-27 | XMS | Encounter Summary ---
Demographics + + + | Address | [address] | | | [place] [address] | + + + | Home Phone [...] Team Providers + +------+ + | Care Networks Software Consultant Name | Role | Phone | + +------+ + | Margarita Patterson | PCP | | + +------+ + Reason for Visit + + + | Reason | Comments | + + + | Dressing change | | + + + | Lab Draw | | + + + Encounter Details +--------+ + + + + | Date | Type | Department | Care Team | Description | +--------+ + + + + | 08/10/ | Hospital | [facility] | | | | 2020 | Encounter | Clinics at S | | | | | | [facility] [address] | | | | | | [facility] | | | | | [facility], | | | | | | [address] | | | | | | [place], [place] | | | | | | [address] | | | | | | [phone] | | | +--------+ + + + [...] + + + | Blood Pressure | 121/50 | 08/11/2019 3:46 PM | | | | | PDT | | + + + + + | Pulse | 63 | 08/11/2019 3:46 PM | | | | | PDT | | + + + + + | Temperature | 36.4 C (97.5 F) | 08/11/2019 3:46 PM | | | | | PDT | | + + + + + | Respiratory Rate | 16 | 08/11/2019 3:46 PM | | | | | PDT | | + + + + + | Oxygen Saturation | 99% | 08/11/2019 3:46 PM | | | | | PDT | | + + + + + | Inhaled Oxygen | - | - | | | Concentration | | | | + + + + + | Weight | - | - | | + + + + + | Height | - | - | | + + + + + | Body Mass Index | - | - | | + [...] documented as of this encounter Progress Notes Chantelle Maldonado RN - 08/11/2019 3:10 PM PDTINFUSION NURSING NOTE Narrative: Patient with history of pancytopenia arrives to clinic for labs and possible supportive car e. Nursing Assessment: Fever: no Diarrhea: no Constipation: no SOB/Cough: yes - pt reports ongoing SOB, not worsening per patient. Pt denies cough. Rash: no Edema: no Mucositis: no Urinary: no Neuropathy: no S/S Bleeding: no but patient does reports blood clot from her nose two days ago. No bleedin g reports otherwise or since that occurrence per patient. Nausea and/or Vomiting: no Fatigue: Pt reports feeling ongoing fatigue, unchanged. PO intake: Pt reports drinking and eating well. Pain: no Vascular Access: Power PICC accessed per protocol. Good blood return noted. Appropriate waste discarded. Labs drawn and sent. Power PICC pulse flushed with 20 mL NS. PICC dressing peeling back and pt reports itching at dressing border. Some redness/skin tea r present at upper border. Power PICC dressing removed, skin intact. No s/s exit site infection. 2 cm line exposed. Using a PICC Dressing Change kit and sterile technique, site cleansed with Chloraprep. Skin prep applied prior to dressing application. Biopatch applied with Tegaderm and Duoderm nancy ssing. Positive pressure valves changed to each port. All lumens pulse flushed with 10 mL NS. Patient tolerated procedure without difficulty. Per Orders: Based on lab results and infusion plan order parameters, no RN intervention indicated. See Education Documentation tab for all teaching provided today. Patient was reminded to call clinic with temp > 100.4, chills, s/s of bleeding or uncontrol led N/V/D/C or inability to eat or drink fluid. Patient d/c d ambulatory and in stable con dition, accompanied by daughter and spouse. Chantelle Maldonado RN Rosey Gilman RN - 2019 3:10 PM PDT Nurse Note Labs: Lab Results Component Value Date WBC 1.91 (LL) 08/11/2019 RBC 2.83 (L) 08/11/2019 HB 8.6 (L) 08/11/2019 HCT 24.5 (L) 08/11/2019 PLT 26 (L) 08/11/2019 NEUTROPHILCO 0.59 (L) 08/07/2019 Lab Results Component Value Date NA 137 08/11/2019 K 3.8 08/11/2019 MG 2.0 08/11/2019 PO4 3.9 08/11/2019 BUN 17 08/11/2019 CR 0.72 08/11/2019 AST 16 08/11/2019 ALT 21 08/11/2019 TBILI 0.5 08/11/2019 documented in this encoun ter Plan of Treatment +--------+ + + + [...] | | | | | | [place] [address] | | | | | | [phone] | | | | | | | | +--------+ + + + + | 01/14/ | Appointment | Hematology & | Onc, Gen [address] | | | 2020 | | Oncology | [place] | | | | | | [place] [address] | | +--------+ + + + + + + +--------+ + + | Name | Type | Priori | Associated Diagnoses | Order Schedule | | | | ty | | | + + +--------+ + + | AML+MDS FISH PANEL | Lab - | Routin | MDS | 08/13/2019 until | | | [facility] | e | (myelodysplastic | discontinued, 1 | | | Performable | | syndrome) (HCC) | completed | | | s | | | | + + +--------+ + + documented as of this encounter Procedures + +--------+ + + + | Procedure Name | Priori | Date/Time | Associated Diagnosis | Comments | | | ty | | | | + +--------+ + + + | ANTIBODY SCREEN | Urgent | 08/11/2019 | 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 | | | | | (HCC) | | + +--------+ + + + | AML+MDS FISH PANEL | Routin | 08/11/2019 | MDS | Results for this | | | e | 2:30 PM | (myelodysplastic | procedure are in the | | | | PDT | syndrome) ([facility]) | results section. | + +--------+ + + + | [facility] - MAGNESIUM, | Routin | 08/11/2019 | Hypomagnesemia | Results for this | | PLASMA | e | 2:30 PM | | procedure are in the | | | | PDT | | results section. | + +--------+ + + + | [facility] - PHOSPHORUS, | Routin | 08/11/2019 | Pancytopenia ([facility]) | Results for this | | PLASMA | e | 2:30 PM | | procedure are in the | | | | PDT | | results section. | + +--------+ + + + | [facility] - LDH TOTAL, | Routin | 08/11/2019 | Pancytopenia ([facility]) | Results for this | | PLASMA | e | 2:30 PM | | procedure are in the | | | | PDT | | results section. 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 | | | | | (HCC) | | + +--------+ + + + | COMPREHENSIVE HEME | Routin | 08/11/2019 | Acute myeloid | Results for this | | PANEL SEQ, BLOOD | e | 2:30 PM | leukemia not having | procedure are in the | | | | PDT | achieved remission | results section. | | | | | (HCC) | | + +--------+ + + + | GENETRAILS | Routin | 08/11/2019 | Acute myeloid | Results for this | | COMPREHENSIVE HEME | e | 2:30 PM | leukemia not having | procedure are in the | | PANEL, BLOOD | | PDT | achieved remission | results section. | | | | | (HCC) | | + +--------+ + + + | RESEARCH ADDITIONAL | Routin | 08/11/2019 | Pancytopenia (HCC) | Results for this | | TUBES | e | 2:30 PM | | procedure are in the | | | | PDT | | results section. | + +--------+ + + + | CBC AND AUTO DIFF | Routin | 08/11/2019 | Pancytopenia (HCC) | Results for this | | | e | 2:30 PM | | procedure are in the | | | | PDT | | results section. | + +--------+ + + + | CYTOGENETICS HEM/ONC | Urgent | 08/11/2019 | MDS | Results for this | | BLOOD CHROMOSOME | | 2:30 PM | (myelodysplastic | procedure are in the | | ANALYSIS (W/FISH) | | PDT | syndrome) ([facility]) | results section. | + +--------+ + + + | [facility] - COMPLETE | Routin | 08/11/2019 | Pancytopenia (HCC) | Results for this | | METABOLIC SET | e | 2:30 PM | | procedure are in the | | | | PDT | | results section. | + +--------+ + + + | [facility] CBC W | Routin | 08/11/2019 | Pancytopenia (HCC) | Results for this | | DIFFERENTIAL | e | 2:30 PM | | procedure are in the | | | | PDT | | results section. | + +--------+ + + + | INR | Routin | 08/11/2019 | MDS | Results for this | | | e | 2:30 PM | (myelodysplastic | procedure are in the | | | | PDT | syndrome) (HCC) | results section. | + +--------+ + + + | URIC ACID, PLASMA | Routin | 08/11/2019 | Pancytopenia (HCC) | Results for this | | | e | 2:30 PM | | procedure are in the | | | | PDT | | results section. | + +--------+ + + + | CK, PLASMA | Routin | 08/11/2019 | MDS | Results for this | | | e | 2:30 PM | (myelodysplastic | procedure are in the | | | | PDT | syndrome) (HCC) | results section. | + +--------+ + + + documented in this encounter Results ANTIBODY SCREEN (08/11/2019 2:32 PM PDT) + + + + + [...] | + + + + + | [facility] | [address] | [place] [address] | | | SERVICES, | [address] | | | | TRANSFUSION MEDICINE | | | | + + + + + ABO & RH TYPE (08/11/2019 2:32 PM PDT) + + + + + [...] | + + + + + | [facility] | [address] | [place] [address] | | | MEGAN | [address] | | | | TRANSFUSION MEDICINE | | | | + + + + + AML+MDS FISH PANEL (08/11/2019 2:30 PM PDT) + + + + + + | Component | Value | Ref Range | Performed | Pathologist | | | | | At | Signature | + + + + + + | AML+MDS | Abnormal | | [facility] | | | FISH PANEL | | | DIAGNOSTIC | | | | | | | | | | | | LABORATORIE | | | | | | S | | + + + + + + | CS | 200 | | [facility] | | | [employer] | | | DIAGNOSTIC | | | PML | | | | | | (15Q22)(SO) | | | LABORATORIE | | | /YOLANDA(17Q21 | | | S | | | )(SG) | | | | | | T(15;17) | | | | | + + + + + + | CS | 200 | | [facility] | | | [employer] | | | DIAGNOSTIC | | | | | | | | | BCR(22Q11.2 | | | LABORATORIE | | | )(SG)/ABL(9 | | | S | | | Q34)(SO)+ | | | | | | S(9Q34) | | | | | + + + + + + | CELLS | 200Comment: Probe | | [facility] | | | SCORED | Manufactured By: | | DIAGNOSTIC | | | [id number](8Q2 | [employer] | | | | | 1.3)(SO)/RU | | | LABORATORIE | | | NX1 (21Q22) | | | S | | | (SG) | | | | | | T(8;21) | | | | | + + + + + + | CELLS | 200Comment: Probe | | [facility] | | | SCORED CBFB | Manufactured By: | | DIAGNOSTIC | | | (16Q22) | [employer] | | | | | (SO)/MYH11 | | | LABORATORIE | | | (16P13.1) | | | S | | | (SG) DF | | | | | + + + + + + | CELLS | 200 | | [facility] | | | SCORED | | | DIAGNOSTIC | | | [employer] | | | | | | | | | LABORATORIE | | | EGR-1(SO)/5 | | | S | | | Q33(SG)/5P1 | | | | | | 5(SA) | | | | | + + + + + + | CELLS | 200 | | [facility] | | | SCORED | | | DIAGNOSTIC | | | [employer] | | | | | | [id number] | | | LABORATORIE | | | (7Q31)(SO)/ | | | S | | | CEP7(SG) | | | | | + + + + + + | CELLS | 200 | | [facility] | | | SCORED | | | DIAGNOSTIC | | | [employer] | | | | | | [id number] | | | LABORATORIE | | | (20Q12)(SO) | | | S | | | /20Q TEL | | | | | | (SG) | | | | | + + + + + + | CELLS | 200 | | [facility] | | | SCORED | | | DIAGNOSTIC | | | BIOCARE | | | | | | TP53 | | | LABORATORIE | | | (17P13.1) | | | S | | | (SO) / CEP | | | | | | 17 (SG) | | | | | + + + + + + | CELLS | 200Comment: Probe | | [facility] | | | SCORED | Manufactured By: | | DIAGNOSTIC | | | MECOM | [employer] | | | | | (3Q26.2)(SO | | | LABORATORIE | | | )/RPN1(3Q21 | | | S | | | .3)(SG) | | | | | | DUAL FUSION | | | | | + + + + + + | CS | 200 | | [facility] | | | [employer] | | | DIAGNOSTIC | | | | | | | | | DEK(6P22)(S | | | LABORATORIE | | | G)/MOA110(9 | | | S | | | Q34)(SO)T(6 | | | | | | ;9)DC, DF | | | | | + + + + + + | CELLS | 200 | | [facility] | | | SCORED | | | DIAGNOSTIC | | | [employer]S | | | | | | NUP98 | | | LABORATORIE | | | (11P15.4) | | | S | | | BREAK-APART | | | | | + + + + + + | CELLS | 200Comment: Probe | | [facility] | | | SCORED CEP | Manufactured By: | | DIAGNOSTIC | | | 8 (SA) | [employer] | | | | | | | | LABORATORIE | | | | | | S | | + + + + + + | CELLS | 200Comment: Probe | | [facility] | | | SCORED MLL | Manufactured By: | | DIAGNOSTIC | | | (11Q23) | [employer] | | | | | BREAK-APART | | | LABORATORIE | | | | | | S | | + + + + + + + + | Specimen | + + | Blood - Blood | | (substance) | + + + + + + + | Performing | Address | City/State/Zipcode | Phone Number | | Organization | | | | + + + + + | [facility] | [address] | [place] [address] | | | DIAGNOSTIC | [address] | | | | LABORATORIES | | | | + + + + + FLT3 ITD, BLOOD (08/11/2019 2:30 PM PDT) + + + + + + | Component | Value | Ref Range | Performed | Pathologist | | | | | At | Signature | + + + + + + | FLT3 ITD | Undetected. | | [facility] | | | | | | DIAGNOSTIC | | | | | | | | | | | | LABORATORIE | | | | | | S | | + + + + + + | INTERPRETAT | No internal tandem | | [facility] | | | ION | duplication (ITD)In this | | DIAGNOSTIC | | | | sample, the FLT3 | | | | | | juxtamembrane domain | | LABORATORIE | | | | does not contain a | | S | | | | detectable internal | | | | | | tandem duplication (ITD) | | | | | | mutation. The absence | | | | | | of a detectable ITD | | | | | | mutation in this sample | | | | | | does not rule out the | | | | | | presence of a small | | | | | | population of | | | | | | mutation-bearing cells, | | | | | | below the low-level | | | | | | detection limit of the | | | | | | assay (~1-5% of the | | | | | | total cells analyzed). | | | | | | Since this mutation | | | | | | appears to be acquired | | | | | | only in tumor cells, | | | | | | this negative result may | | | | | | also simply be the | | | | | | result of the sample | | | | | | containing too few | | | | | | leukemia cells.Comment: | | | | | | For the purposes of | | | | | | improved patient care, | | | | | | the findings for | | | | | | FLT3-ITD gene mutation | | | | | | analysis are issued in | | | | | | this separate report. | | | | | | Next generation | | | | | | sequencing analysis is | | | | | | being performed and a | | | | | | comprehensive | | | | | | interpretation of all | | | | | | 220 genes analyzed in | | | | | | this case will be | | | | | | reported in a separate | | | | | | report upon completion | | | | | | of the remaining tests. | | | | + + + + + + | METHOD(S) | For the ITD assay | | [facility] | | | | performed in our | | DIAGNOSTIC | | | | laboratory, blood or | | | | | | bone marrow-derived DNA | | LABORATORIE | | | | is PCR amplified with | | S | | | | FLT3 juxtamembrane | | | | | | domain (exon 14) | | | | | | primers. The FLT3-ITD | | | | | | PCR product is then | | | | | | analyzed by capillary | | | | | | electrophoresis to | | | | | | detect the presence or | | | | | | absence of length | | | | | | variations attributable | | | | | | to an ITD. The | | | | | | low-level sensitivity | | | | | | limit of the assay is | | | | | | ~1-5%, such that a | | | | | | mutant cell (or tumor | | | | | | cell) population below | | | | | | this detection limit | | | | | | will not be reliably | | | | | | detected. | | | | + + + + + + | REFERENCES | 1. Grayson Jose | | [facility] | | | | T, Any noble H. Molecular | | DIAGNOSTIC | | | | genetics of adult acute | | | | | | myeloid leukemia: | | LABORATORIE | | | | prognostic and | | S | | | | therapeutic | | | | | | implications. J Clin | | | | | | Oncol. | | | | | | 2010;29:475-486.2. | | | | | | Isi SP, Randee , | | | | | | Dixon WORTHY, et al. | | | | | | FLT3 D835/[id number] mutations | | | | | | are associated with | | | | | | poor disease-free | | | | | | survival and a distinct | | | | | | gene-expression | | | | | | signature among younger | | | | | | adults with de jaida | | | | | | cytogenetically normal | | | | | | acute myeloid leukemia | | | | | | lacking FLT3 internal | | | | | | tandem duplications. | | | | | | Blood | | | | | | 2007;111:5870-6233. | | | | + + + + + + | DISCLAIMER | This test was developed | | [facility] | | | | and its performance | | DIAGNOSTIC | | | | characteristics | | | | | | determined by the [facility] | | LABORATORIE | | | | [facility] | | S | | | | Laboratories. It has | | | | | | not been cleared or | | | | | | approved by the Food and | | | | | | Drug Administration. | | | | | | FDA approval is not | | | | | | required for the | | | | | | clinical use of the | | | | | | test, and therefore | | | | | | validation was done as | | | | | | required under the | | | | | | requirements of the | | | | | | Clinical Laboratory | | | | | | Improvement Act of 1987 | | | | | | (CLIA). The [facility] | | | | | | [facility] | | | | | | Laboratories are fully | | | | | | licensed by the state of | | | | | | [place] under CLIA and | | | | | | are accredited by the | | | | | | [employer] | | | | | | [employer] ([employer]). | | | | | | Heel Room Supervisor: | | | | | | Antony Moore, | | | | | | Joesph, Ph.D. | | | | + + + + + + + + | Specimen | + + | Blood - Blood | | (substance) | + + + + + + + | Performing | Address | City/State/Zipcode | Phone Number | | Organization | | | | + + + + + | [facility] | [address] | [place] [address] | | | DIAGNOSTIC | [address] | | | | LABORATORIES | | | | + + + + + COMPREHENSIVE HEME PANEL SEQ, BLOOD (08/11/2019 2:30 PM PDT) + + + + + + | Component | Value | Ref Range | Performed | Pathologist | | | | | At | Signature | + + + + + + | COMPREHENSI | See Interpretation. | | [facility] | | | VE HEME | | | DIAGNOSTIC | | | PANEL SEQ | | | | | | | | | LABORATORIE | | | | | | S | | + + + + + + | INTERPRETAT | [employer] | | [facility] | | | ION | Comprehensive Heme | | DIAGNOSTIC | | | | Sequencing: Mutation | | | | | | Screening by | | LABORATORIE | | | | Next-Generation | | S | | | | SequencingPatient Name: | | | | | | NELA, LANETTE | | | | | | KAYMedical Record | | | | | | Number: [id number] | | | | | | ID: [id number] | | | | | | Type: Blood Collection | | | | | | Date: 08/11/2019 | | | | | | Indication for Testing: | | | | | | Myeloproliferative | | | | | | neoplasms (MPN); primary | | | | | | myelofibrosis.GENOMIC | | | | | | ALTERATIONSThe following | | | | | | 3 variant(s) have been | | | | | | identified.Gene | | | | | | Alteration | | | | | | Classification VAF* | | | | | | Targeted Therapy | | | | | | Additional Information | | | | | | TP53 p.L194H Tier I 16% | | | | | | [id number] | | | | | | U2AF1 p.Q157R Tier II 8% | | | | | | | | | | | | [id number] | | | | | | [id number] DOCK8 p.S165L | | | | | | Tier III 51% | | | | | | [id number] | | | | | | *VAF: variant allele | | | | | | frequencyDetailed | | | | | | Variant | | | | | | Information:Variant(s) | | | | | | of Strong Clinical | | | | | | Significance (Tier | | | | | | I)Variant: TP53 | | | | | | p.[id number] in | | | | | | TP53 are specifically | | | | | | associated with a poor | | | | | | prognosis in | | | | | | hematological | | | | | | malignancies, and often | | | | | | correlate with a complex | | | | | | karyotype. TP53 gene | | | | | | alterations are present | | | | | | in 5-10% of MDS and | | | | | | more than 50% of AML | | | | | | with a complex | | | | | | karyotype. Mutations in | | | | | | TP53 have also been | | | | | | reported in MPN, | | | | | | predominantly primary | | | | | | myelofibrosis (~4% of | | | | | | cases) and blast-phase | | | | | | MPN (~11% of cases) | | | | | | (Audrey & | | | | | | Nicole, PHU Oncol. | | | | | | 2014 Apr;1(1):97-105). | | | | | | The higher prevalence of | | | | | | TP53 mutations in | | | | | | blast-phase MPN may | | | | | | suggest a role in | | | | | | disease progression. No | | | | | | targeted therapy is | | | | | | available. Variant(s) of | | | | | | Potential Clinical | | | | | | Significance (Tier | | | | | | II)Variant: U2AF1 | | | | | | p.[id number], which | | | | | | maps to the C-terminal | | | | | | zinc finger domain, is a | | | | | | known hotspot for | | | | | | substitution variants in | | | | | | the U2AF1 splicing | | | | | | factor in AML and MDS. | | | | | | U2AF1 mutations have | | | | | | been detected in ~16% of | | | | | | PMF patients where they | | | | | | were associated with | | | | | | anemia and | | | | | | thrombocytopenia; | | | | | | however, U2AF1 mutations | | | | | | in PMF did not appear | | | | | | to have independent | | | | | | prognostic relevance for | | | | | | either overall or | | | | | | leukemia-free survival | | | | | | (Audrey et al. Leukemia | | | | | | 2013). No targeted | | | | | | therapy is available. | | | | | | Case reviewed by:Seymour | | | | | | MD Maycol, FACMG/Clinical | | | | | | Molecular | | | | | | GeneticistPhilipp Raess, | | | | | | MD, | | | | | | PhD/HematopathologistAdd | | | | | | itional Details on | | | | | | Alterations Reported in | | | | | | This Patient:Gene | | | | | | Transcript cDNA Chaim | | | | | | Genome Chrom Start End | | | | | | Ref Chaim DOCK8 [id number] | | | | | | c.494C>T hg19 chr9 | | | | | | [id number] C T TP53 | | | | | | [id number] c.581T>A hg19 | | | | | | chr17 [id number] A | | | | | | T U2AF1 [id number] | | | | | | c.470A>G hg19 chr21 | | | | | | [id number] T C | | | | | | Test Details:This test | | | | | | is designed to detect | | | | | | alterations in a panel | | | | | | of 220 genes, many of | | | | | | which are known to play | | | | | | a role in leukemia and | | | | | | lymphoma pathogenesis, | | | | | | diagnosis, prognosis, | | | | | | response to therapy, | | | | | | disease monitoring, or | | | | | | inherited | | | | | | predisposition. All or | | | | | | selected coding exons | | | | | | and the canonical splice | | | | | | sites of the following | | | | | | genes are sequenced. No | | | | | | detectable alterations | | | | | | are identified in the | | | | | | following genes, unless | | | | | | otherwise listed | | | | | | above.ABL1 AKT1 ANKRD26 | | | | | | ARID1A ARID1B ASXL1 | | | | | | ASXL2 ATG2B LAUREN ATRX | | | | | | BCL2 BCL6 BCOR BCORL1 | | | | | | BIRC3 BIRC6 BLM BRAF | | | | | | BRCA1 BRCA2 BRCC3 BRD4 | | | | | | BTK CALR CARD11 CASP10 | | | | | | CBL CBLB CBLC CCND1 | | | | | | CCND3 CCR4 CD27 CD79A | | | | | | CD79B CDH11 CDKN2A | | | | | | CDKN2C CEBPA CHD2 CHEK2 | | | | | | CREBBP CRLF2 CSF1R CSF3R | | | | | | CTCF CTLA4 CUX1 CXCR4 | | | | | | DAXX DDX41 DDX54 DHX15 | | | | | | DHX29 DIS3 DNAH5 DNAH9 | | | | | | DNAJC21 DNM2 DNMT1 | | | | | | DNMT3A DOCK8 DTX1 EED | | | | | | EFTUD1 EGFR ELANE EP300 | | | | | | ERBB4 ETNK1 ETV6 EZH2 | | | | | | FAM47A FAM5C FAS FAT1 | | | | | | FAT4 FBXO11 FBXW7 FLT3 | | | | | | FOXO1 FYN GATA1 GATA2 | | | | | | GATA3 GNA13 GNAS GNB1 | | | | | | GSKIP HAX1 QPPS2S2T | | | | | | HNRNPK HRAS HVCN1 ID3 | | | | | | IDH1 IDH2 IGLL5 IKZF1 | | | | | | IKZF3 IL7R IRF4 JAK1 | | | | | | JAK2 JAK3 KDM6A KIT KLF2 | | | | | | KLHL6 KMT2A KMT2C KMT2D | | | | | | KRAS LLGL2 LRRC4 LUC7L2 | | | | | | MAGT1 MAML1 MAP2K1 | | | | | | MECOM MED12 MEF2B MGA | | | | | | MLH1 MPL MSH2 MSH6 MYC | | | | | | MYD88 NAF1 NBN NF1 | | | | | | NFKBIE NOTCH1 NOTCH2 | | | | | | NPAT NPM1 NRAS NT5C2 | | | | | | NXF1 PAX5 PCLO PDGFRA | | | | | | PHF6 PIGA PIK3CD PIM1 | | | | | | PLCG1 PLCG2 PMS2 POT1 | | | | | | PPM1D PRDM1 PRKCB | | | | | | [id number] PRPF8 PRPS1 | | | | | | PSMB5 PTCH1 PTEN PTPN11 | | | | | | RAD21 RB1 RBBP6 RELN | | | | | | RHOA RIT1 RPS15 RTEL1 | | | | | | RUNX1 RYR1 RYR2 SAMD9 | | | | | | SAMD9L SAMHD1 SBDS | | | | | | SETBP1 SETD2 SETDB1 SF1 | | | | | | SF3A1 SF3B1 SH2B3 | | | | | | SMARCA2 SMARCB1 SMC1A | | | | | | SMC3 SOCS1 SPEN SPI1 | | | | | | SRP72 SRSF2 STAG2 STAT3 | | | | | | STAT5B STXBP2 SUZ12 SYK | | | | | | SYNE1 RUQ5YW6 TCF3 TCF4 | | | | | | TERC TERT TET2 TNFAIP3 | | | | | | [id number] TP53 TRAF3 | | | | | | U2AF1 U2AF2 UBR5 USH2A | | | | | | VAV1 WAS WHSC1 WT1 XPO1 | | | | | | ZBTB7A ZRSR2 Low Limit | | | | | | of Detection The low | | | | | | limit of detection for | | | | | | this assay is 2% VAF at | | | | | | a minimal 900 read depth | | | | | | (5% at 700 read depth | | | | | | and 7% at 500 read | | | | | | depth). This case has an | | | | | | average read depth of | | | | | | 3142. However, a small | | | | | | fraction (100 minus the | | | | | | percentage in the | | | | | | parenthesis) of the | | | | | | targeted regions of the | | | | | | following genes: NF1 | | | | | | (99%), ASXL1 (99%), PCLO | | | | | | (99%), SPEN (99%), | | | | | | NOTCH2 (99%), ARID1B | | | | | | (99%), JAK1 (99%), | | | | | | SETBP1 (99%), RAD21 | | | | | | (98%), MAML1 (98%), DTX1 | | | | | | (98%), KLF2 (96%), | | | | | | STAT5B (94%), BRD4 | | | | | | (93%), PMS2 (89%) have a | | | | | | higher low limit of | | | | | | detection of 10-15% VAF | | | | | | (if less than 250 read | | | | | | depth), or could harbor | | | | | | mutations that were | | | | | | missed by this analysis | | | | | | if the read depth is | | | | | | below 100. Further | | | | | | information on these | | | | | | low-coverage regions is | | | | | | available upon request. | | | | | | Low read counts may | | | | | | reflect changes in gene | | | | | | copy number or | | | | | | technical/stability | | | | | | issues with the sample. | | | | + + + + + + | TIER METHOD | Genomic variants have | | [facility] | | | | been classified in | | DIAGNOSTIC | | | | accordance with the 2017 | | | | | | standards and | | LABORATORIE | | | | guidelines recommended | | S | | | | by AMP/ASCO/CAP (1) and | | | | | | currently available | | | | | | resources. In brief, | | | | | | Tier I variants have | | | | | | strong evidence linking | | | | | | the genomic alteration | | | | | | to specific therapies, | | | | | | or are included in | | | | | | clinical practice | | | | | | guidelines or | | | | | | well-powered studies | | | | | | confirming their | | | | | | diagnostic, predictive, | | | | | | prognostic, and/or | | | | | | disease monitoring | | | | | | significance. Tier II | | | | | | variants have either | | | | | | targeted therapies | | | | | | available for different | | | | | | tumor types, ongoing | | | | | | preclinical or clinical | | | | | | trials of novel | | | | | | therapies, or have less | | | | | | strong evidence for | | | | | | their diagnostic, | | | | | | predictive, prognostic, | | | | | | and/or disease | | | | | | monitoring roles. Tier | | | | | | III variants (of unknown | | | | | | clinical significance) | | | | | | are neither observed in | | | | | | healthy populations nor | | | | | | have convincing | | | | | | published evidence of | | | | | | cancer association but | | | | | | cannot be classified as | | | | | | definitively benign or | | | | | | likely benign. We do | | | | | | not report benign or | | | | | | likely benign (Tier IV) | | | | | | variants. The | | | | | | classification of a | | | | | | variant is dependent on | | | | | | the specific clinical | | | | | | scenario, which could | | | | | | change in a different | | | | | | patient and/or in a new | | | | | | sample from the same | | | | | | patient, or if there are | | | | | | new data/information | | | | | | relevant to this | | | | | | variant. | | | | + + + + + + | METHOD(S) | Genomic DNA is extracted | | FINN | | | | and purified from | | DIAGNOSTIC | | | | blood, bone marrow or | | | | | | other hematopoietic | | LABORATORIE | | | | tissue from fresh or | | S | | | | fixed samples. If the | | | | | | submitted sample is from | | | | | | FFPE, the specimen is | | | | | | examined microscopically | | | | | | and, if deemed helpful | | | | | | to enhance sensitivity, | | | | | | genomic DNA is extracted | | | | | | and purified from micro | | | | | | dissected, tumor-rich | | | | | | areas. Mutations are | | | | | | screened by massively | | | | | | parallel sequencing | | | | | | (next-generation | | | | | | sequencing) using a | | | | | | combination of | | | | | | multiplexed PCR | | | | | | (customized QIAseq | | | | | | targeted DNA panel with | | | | | | molecular barcodes) and | | | | | | sequencing on an | | | | | | Illumina platform | | | | | | (GreenWatt 500 or 550). | | | | | | Sequencing data is then | | | | | | aligned against a | | | | | | reference genome [[id number]]. | | | | | | An in-house | | | | | | bioinformatics analysis | | | | | | pipeline has been used | | | | | | that employs multiple | | | | | | established variant | | | | | | calling tools | | | | | | (FreeBayes, MuTect2, and | | | | | | Scalpel) and variant | | | | | | annotation tools | | | | | | (Oncotator). The assay | | | | | | is validated according | | | | | | to AMP guidelines (2,3). | | | | | | With regard to | | | | | | insertions and | | | | | | deletions, this test is | | | | | | known to be biased | | | | | | toward detecting shorter | | | | | | alterations, and often | | | | | | to underestimate variant | | | | | | allele frequency (VAF) | | | | | | of these types of | | | | | | variants. Therefore, a | | | | | | supplementary non-biased | | | | | | size-based assay is | | | | | | concomitantly run to | | | | | | ensure that internal | | | | | | tandem duplication | | | | | | insertions in FLT3 exon | | | | | | 14 are not missed. | | | | | | Furthermore, a | | | | | | supplementary assay is | | | | | | concomitantly run to | | | | | | detect partial tandem | | | | | | duplications in | | | | | | KMT2A/MLL (aka MLL-PTD) | | | | | | if warranted by the | | | | | | clinicopathological | | | | | | findings of the patient. | | | | | | Sequencing often does | | | | | | not detect large | | | | | | deletions or | | | | | | duplications in other | | | | | | genes targeted on this | | | | | | panel. In addition, this | | | | | | test does not detect | | | | | | mutations in the | | | | | | regulatory regions, deep | | | | | | introns, or highly | | | | | | homologous regions | | | | | | containing pseudogenes | | | | | | and/or highly repetitive | | | | | | regions.This assay is | | | | | | intended to detect | | | | | | somatically-acquired | | | | | | variants in | | | | | | cancer-associated genes | | | | | | and is not intended to | | | | | | detect germline variants | | | | | | for the diagnosis of | | | | | | inherited cancer | | | | | | predisposition | | | | | | syndromes. If an | | | | | | inherited variant is | | | | | | suspected, other | | | | | | sequencing tests may be | | | | | | indicated, and genetic | | | | | | counseling may be | | | | | | warranted. | | | | + + + + + + | REFERENCES | 1. Haritha GARCIA, et al; 2017, J | | FINN | | | | Mol Diagn. | | DIAGNOSTIC | | | | 19(1):4-23.2. Selene | | | | | | EMETERIO et al; 2017, J Mol | | LABORATORIE | | | | Diagn. 19(3):341-365.3. | | S | | | | Florencio S, et al; 2018, J | | | | | | Mol Diagn. 20(1):4-27.4. | | | | | | NCCN guidelines: | | | | | | https://www.nccn.org/pro | | | | | | fessionals/physician_gls | | | | | | /default.aspx5. The 2017 | | | | | | ELN recommendations: | | | | | | Blood. 2017; | | | | | | 129(4):424-447.6. The | | | | | | 2015 revision to the WHO | | | | | | classification: Blood. | | | | | | 2016; 127(33):8519-542. | | | | | | 7. Catalogue Of Somatic | | | | | | Mutations In Cancer: | | | | | | http://cancer.sydney.ac. | | | | | | uk/cosmic8. ClinVar: | | | | | | https://www.ncbi.nlm.nih | | | | | | .gov/clinvar/9. | | | | | | ANG-Clinical | | | | | | Knowledgebase (CKB): | | | | | | https://ckb.Talentoday.org/10. | | | | | | CIViC: | | | | | | https://civicdb.org/home | | | | + + + + + + | DISCLAIMER | This test was developed | | FINN | | | | and its performance | | DIAGNOSTIC | | | | characteristics | | | | | | determined by the [facility] | | LABORATORIE | | | | [facility] | | S | | | | Laboratories. It has | | | | | | not been cleared or | | | | | | approved by the Food and | | | | | | Drug Administration. | | | | | | FDA approval is not | | | | | | required for the | | | | | | clinical use of the | | | | | | test, and therefore | | | | | | validation was done as | | | | | | required under the | | | | | | requirements of the | | | | | | Clinical Laboratory | | | | | | Improvement Act of 1988 | | | | | | (CLIA). The [facility] | | | | | | Diagnostics | | | | | | Laboratories are fully | | | | | | licensed by the state | | | | | | [place] under CLIA and | | | | | | are accredited by the | | | | | | [employer] | | | | | | Pathologists (CAP). | | | | | | Heel Room Supervisor: | | | | | | Antony Moore, | | | | | | Joesph, Ph.D.Reviewed | | | | | | and electronically | | | | | | signed by Gallo Hinkle | | | | | | MD Magda,PhD3/ | | | | | | 2:25 PM | | | | + + + + + + + + | Specimen | + + | Blood - Blood | | (substance) | + + + + + + + | Performing | Address | City/State/Zipcode | Phone Number | | Organization | | | | + + + + + | [facility] | [address] | [place] [address] | | | DIAGNOSTIC | [address] | | | | LABORATORIES | | | | + + + + + CBC AND AUTO DIFF (08/11/2019 2:30 PM PDT) + + + + + + | Component | Value | Ref Range | Performed | Pathologist | | | | | At | Signature | + + + + + + | WHITE CELL | 1.91 (LL) | 3.50 - 10.80 | [facility] | | | COUNT | | K/cu mm | LABORATORY | | | | | | SERVICES, | | | | | | [facility] | | [facility] | | + + + + + + | RED CELL | 2.83 (L) | 4.00 - 5.20 | [facility] | | | COUNT | | M/cu mm | LABORATORY | | | | | | SERVICES, | | | | | | [facility] + | | | | | | [facility] | | + + + + + + | HEMOGLOBIN | 8.6 (L) | 12.0 - 16.0 | [facility] | | | | | g/dL | LABORATORY | | | | | | SERVICES, | | | | | | [facility] + | | | | | | [facility] | | + + + + + + | HEMATOCRIT | 24.5 (L) | 36.0 - 46.0 % | [facility] | | | | | | LABORATORY | | | | | | SERVICES, | | | | | | [facility] + | | | | | | [facility] | | + + + + + + | MCV | 86.6 | 80.0 - 100.0 fL | [facility] [...] + + + | RDW SD | 42.7 | 35.1 - 46.3 fL | [facility] | | | | | | LABORATORY | | | | | | SERVICES, | | | | | | [facility] + | | | | | | [facility] | | + + + + + + | PLATELET | 26 (L) | 150 - 400 K/cu | [...] + + + + | NEUTROPHIL | 25.1 (L) | 50.0 - 70.0 % | [facility] | | | % | | | LABORATORY | | | | | | SERVICES, | | | | | | [facility] + | | | | | | [facility] | | + + + + + + | LYMPHOCYTE | 61.8 (H) | 18.0 - 42.0 % | [facility] | | | % | | | LABORATORY | | | | | | SERVICES, | | | | | | [facility] + | | | | | | [facility] | | + + + + + + | MONOCYTE % | 11.5 (H) | 3.5 - 9.0 % | [facility] | | | | | | LABORATORY | | | | | | SERVICES, | | | | | | [facility] + | | | | | | [facility] | | + + + + + + | EOS % | 0.0 (L) | 1.0 - 3.0 % | [facility] | | | | | | LABORATORY | | | | | | SERVICES, | | | | | | [facility] + | | | | | | [facility] | | + + + + + + | BASO % | 0.0 | 0.0 - 2.0 % | [facility] | | | | | | LABORATORY | | | | | | SERVICES, | | | | | | [facility] + | | | | | | [facility] | | + + + + + + | IG% | 1.6 (H) | 0.0 - 1.0 % | [facility] | | | | | | LABORATORY | | | | | | SERVICES, | | | | | | [facility] + | | | | | | [facility] | | + + + + + + | NEUTROPHIL | 0.48 (L) | 1.80 - 7.70 | [facility] | | | # | | K/cu mm | LABORATORY | | | | | | SERVICES, | | | | | | [facility] + | | | | | | [facility] | | + + + + + + | NEUTROPHIL | 0.48 (L)Comment: | 1.80 - 7.70 | [facility] [...] + + + + | LYMPHOCYTE | 1.18 | 1.00 - 4.80 | [facility] | | | # | | K/cu mm | LABORATORY | | | | | | SERVICES, | | | | | | [facility] + | | | | | | [facility] | | + + + + + + | MONOCYTE # | 0.22 | 0.10 - 0.90 | [facility] | | | | | K/cu mm | LABORATORY | | | | | | SERVICES, | | | | | | [facility] + | | | | | | [facility] | | + + + + + + | EOS # | 0.00 | 0.00 - 0.50 | [facility] | | | | | K/cu mm | LABORATORY | | | | | | SERVICES, | | | | | | [facility] + | | | | | | [facility] | | + + + + + + | BASO # | 0.00 | 0.00 - 0.10 | [facility] | | | | | K/cu mm | LABORATORY | | | | | | SERVICES, | | | | | | [facility] + | | | | | | [facility]AL[facility] | | + + + + + + | IG# | 0.03 | 0.00 - 0.10 | [...] (IG) are an automated count of metamyelocytes, myelocytes | LABORATORY | | and promyelocytes. Bands are not included in the IG count. Bands are | SERVICES, | | included in the neutrophil count. | [facility] + | | | [facility] | + + + + + + + + | Performing | Address | City/State/Zipcode | Phone Number | | Organization | | | | + + + + + | [facility] | [address] | [place] [address] | | | SERVICES, [facility] | | [facility] | | | | + + + + + RESEARCH ADDITIONAL TUBES (08/11/2019 2:30 PM PDT) + + + + + + | Component | Value | Ref Range | Performed | Pathologist | | | | | At | Signature | + + + + + + | LABEL ONLY | No Results Expected; | | [facility] | | | - REF LAB | Research Collection Only | | LABORATORY | | | | [...] [facility] | [address] | [place] [address] | | | SERVICES, CORE | [address] | | | + + + + + URIC ACID, PLASMA (08/11/2019 2:30 PM PDT) + +-------+ + + + | Component | Value | Ref Range | Performed | Pathologist | | | | | At | Signature | + +-------+ + + + | URIC ACID, | 3.4 | 2.5 - 6.2 mg/dL | [facility] [...] + | [facility] | [address] | [place] [address] | | | SERVICES, CORE | [address] | | | + + + + + [facility] - COMPLETE METABOLIC SET (08/11/2019 2:30 PM PDT) + +---------+ + + + | Component | Value | Ref Range | Performed | Pathologist | | | | | At | Signature | + +---------+ + + + | GLUCOSE, | 173 (H) | 70 - 99 mg/dL | [facility] | | | PLASMA | | | LABORATORY | | | (LAB) | | | SERVICES, | | | | | | [facility] | | | | | | HEALTH + | | | | | | HEALING | | + +---------+ + + + | BUN, PLASMA | 17 | 6 - 20 mg/dL | [facility] [...] | | | LABORATORY | | | FRENCH | | | SERVICES, | | | [...] +---------+ + + + | SODIUM, | 137 | 136 - 145 | [facility] | | | PLASMA | | mmol/L | LABORATORY | | | (LAB) | | | SERVICES, | | | | | | [facility] + | | | | | | [facility] | | + +---------+ + + + | POTASSIUM, | 3.8 | 3.4 - 5.0 | [facility] | | | PLASMA | | mmol/L | LABORATORY | | | (LAB) | | | SERVICES, | | | | | | [facility] + | | | | | | [facility] | | + +---------+ + + + | CHLORIDE, | 101 [...] + + + | TOTAL CO2, | 27 | 21 - 32 mmol/L | [facility] | | | PLASMA | | | LABORATORY | | | (LAB) | | | SERVICES, | | | | | | [facility] + | | | | | | [facility] | | + +---------+ + + + | CALCIUM, | 9.1 | 8.6 - 10.2 | [facility] | | | PLASMA | | mg/dL | LABORATORY | | | (LAB) | | | SERVICES, | | | | | | [facility] + | | | | | | [facility] | | + +---------+ + + + | CALCIUM(ALB | 9.7 | 8.6 - 10.2 | [facility] | | | CORRECTED) | | mg/dL | LABORATORY | | | | | | SERVICES, | | | | | | [facility] + | | | | | | [facility] | | + +---------+ + + + | BILIRUBIN | 0.5 | 0.3 - 1.2 mg/dL | [facility] | | | TOTAL | | | LABORATORY | | | | | | SERVICES, | | | | | | [facility] + | | | | | | [facility] | | + +---------+ + + + | TOTAL | 7.7 [...] +---------+ + + + | ALBUMIN, | 3.3 (L) | 3.5 - 4.7 g/dL | [facility] | | | PLASMA | | | LABORATORY | | | (LAB) | | | SERVICES, | | | | | | [facility] + | | | | | | [facility] | | + +---------+ + + + | ALK PHOS | 73 | 53 - 141 U/L | [facility] | | | | | | LABORATORY | | | | | | SERVICES, | | | | | | [facility] + | | | | | | [facility] | | + +---------+ + + + | AST(SGOT) | 16 | <=41 U/L | [facility] | | | | | | LABORATORY | | | | | | SERVICES, | | | | | | [facility] + | | | | | | [facility] | | + +---------+ + + + | ALT (SGPT) | 21 | <=60 U/L | [facility] | | [...] +---------+ + + + | ANION | 10 | 4 - 11 mmol/L [...] +---------+ + + + | BUN/CREATIN | 24 | 8 - 25 | [facility] | | | INE RATIO | | | LABORATORY | | | | | | SERVICES, | | | | | | [facility] + | | | | | | [facility]ALING | | + +---------+ + + + | GLOBULIN | 4.4 [...] + + + | ALBUMIN/ASHA | 0.8 (L) | 0.9 - 2.0 | [facility] | | | BULIN RATIO | | | LABORATORY | | | | | | SERVICES, | | | | | | [facility] | | | | | | [...] | + + + + + | [facility] | [address] | [place] [address] | | | SERVICES, [facility] | | | | [facility] + [facility] | | | | + + + + + [facility] - MAGNESIUM, PLASMA (08/11/2019 2:30 PM PDT) + +-------+ + + + | Component | Value | Ref Range | Performed | Pathologist | | | | | At | Signature | + +-------+ + + + | MAGNESIUM,P | 2.0 | 1.6 - 2.6 mg/dL | [facility] [...] LABORATORY | [address] | [place] [address] | | | SERVICES, [facility] | | | | [facility] + [facility] | | | | + + + + + [facility] - PHOSPHORUS, PLASMA (08/11/2019 2:30 PM PDT) + +-------+ + + + | Component | Value | Ref Range | Performed | Pathologist | | | | | At | Signature | + +-------+ + + + | PHOSPHORUS, | 3.9 | 2.4 - 4.7 mg/dL | [facility] [...] | + + + + + | [facility] | [address] | [place] [address] | | | SERVICES, [facility] | | | | [facility] + [facility] | | | | + + + + + [facility] - LDH TOTAL, PLASMA (08/11/2019 2:30 PM PDT) + +---------+ + + + | Component | Value | Ref Range | Performed | Pathologist | | | | | At | Signature | + +---------+ + + + | LD TOTAL, | 319 (H) | <=250 U/L | [facility] | [...] | + + + + + | [facility] | [address] | [place] [address] | | | [facility] | | | | | HEALTH + HEALING | | | | + + + + + CYTOGENETICS HEM/ONC BLOOD CHROMOSOME ANALYSIS (W/FISH) (08/11/2019 2:30 PM PDT) + + + + + + | Component | Value | Ref Range | Performed | Pathologist | | | | | At | Signature | + + + + + + | Cytogenetic | Abnormal | | [facility] | | | s Hem/Onc | | | DIAGNOSTIC | | | Blood | | | | | | Chromosome | | | LABORATORIE | | | W/FISH | | | S | | + + + + + + | Chromosome | Abnormal | | [facility] | | | Results | | | DIAGNOSTIC | | | | | | | | | | | | LABORATORIE | | | | | | S | | + + + + + + | Impressions | KARYOTYPE: | | [facility] | | | and | 45~46,XX,del(5)(q22q33), | | DIAGNOSTIC | | | Recommendat | -6,-11,add(19)(p13),+1~2 | | | | | ions | mar[cp14]/46,XX[1]Only | | LABORATORIE | | | | fifteen metaphase cells | | S | | | | were found in all | | | | | | available material. 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 By FISH, below, | | | | | | it appears that some | | | | | | chromosome 11 material | | | | | | is present, likely in | | | | | | one of the markers or | | | | | | extra material on | | | | | | chromosome 19p. One | | | | | | cell appeared normal | | | | | | female. Fluorescent in | | | | | | situ hybridization | | | | | | (FISH) was performed | | | | | | using an AML/MDS probe | | | | | | panel. Probe sets and | | | | | | number of cells scored | | | | | | are listed below. | | | | | | Results were consistent | | | | | | with the metaphase | | | | | | karyotype as | | | | | | follows:EGR1/5q33/5p15: | | | | | | 26/200 cells (13%) had | | | | | | a 1 red/ 1 green/ 2 aqua | | | | | | signal pattern, | | | | | | consistent with the | | | | | | deleted 5q in the | | | | | | metaphase | | | | | | karyotype.NUP98: 18/200 | | | | | | cells (9%) had a single | | | | | | NUP98 (11p15.4) signal, | | | | | | consistent with the | | | | | | monosomy 11 observed in | | | | | | the metaphase karyotype. | | | | | | However, the MLL | | | | | | (11q23) signal pattern | | | | | | was normal, suggesting | | | | | | that there is chromosome | | | | | | 11 material in an | | | | | | unidentified part of the | | | | | | karyotype. There was | | | | | | no evidence for NUP98 or | | | | | | MLL rearrangement.DEK: | | | | | | 26/200 cells (13%) had | | | | | | a single DEK (6p22) | | | | | | signal, consistent with | | | | | | the monosomy 6 observed | | | | | | in the metaphase | | | | | | karyotype. There was no | | | | | | evidence for DEK/MPN698 | | | | | | fusion.Results for all | | | | | | other probes listed | | | | | | below were normal. Thank | | | | | | you very much for your | | | | | | referral. If you have | | | | | | any questions regarding | | | | | | this report or future | | | | | | cytogenetic testing | | | | | | issues, please feel free | | | | | | to contact us.Reason | | | | | | for Referral: | | | | | | MDS/AMLThe clinical | | | | | | interpretation was made | | | | | | by the clinical | | | | | | cash sales audit clerk. | | | | + + + + + + | Number of | 4 | | [facility] | | | Cells | | | DIAGNOSTIC | | | Karyotpyed | | | | | | | | | LABORATORIE | | | | | | S | | + + + + + + | Number of | 16 | | [facility] | | | Cells | | | DIAGNOSTIC | | | Analyzed: | | | | | | | | | LABORATORIE | | | | | | S | | + + + + + + | Number of | N/A | | [facility] | | | Cells | | | DIAGNOSTIC | | | Counted: | | | | | | | | | LABORATORIE | | | | | | S | | + + + + + + | Banding | <=400 | | [facility] | | | Level: | | | DIAGNOSTIC | | | | | | | | | | | | LABORATORIE | | | | | | S | | + + + + + + | Banding | GTW | | [facility] | | | Method: | | | DIAGNOSTIC | | | | | | | | | | | | LABORATORIE | | | | | | S | | + + + + + + | DISCLAIMER | This test was developed | | [facility] | | | | and its performance | | DIAGNOSTIC | | | | characteristics | | | | | | determined by the [facility] | | LABORATORIE | | | | [facility] | | S | | | | Laboratories. It has | | | | | | not been cleared or | | | | | | approved by the Food and | | | | | | Drug Administration. | | | | | | FDA approval is not | | | | | | required for the | | | | | | clinical use of the | | | | | | test, and therefore | | | | | | validation was done as | | | | | | required under the | | | | | | requirements of the | | | | | | Clinical Laboratory | | | | | | Improvement Act of 1988 | | | | | | (CLIA). The [facility] | | | | | | Diagnostics | | | | | | Laboratories are fully | | | | | | licensed by the state of | | | | | | [place] under CLIA and | | | | | | are accredited by the | | | | | | [employer] | | | | | | Pathologists (CAP). | | | | | | Heel Room Supervisor: | | | | | | Antony Moore, | | | | | | M.D., | | | | | | Ph.D.Electronically | | | | | | reviewed and signed | | | | | | by:Rozina White, PhD, | | | | | | FACMGClinical | | | | | | [facility]08/19/2019 | | | | | | at 2:03 PMReviewed and | | | | | | electronically signed by | | | | | | ROZINA ELAINE, | | | | | | ,[facility]08/19/2019 6:02 | | | | | | PM | | | | + + + + + + + + | Specimen | + + | Blood - Blood | | (substance) | + + + + + + + | Performing | Address | City/State/Zipcode | Phone Number | | Organization | | | | + + + + + | [facility] | [address] | [place] [address] | | | DIAGNOSTIC | [address] | | | | LABORATORIES | | | | + + + [...] [facility] | [address] | [place] [address] | | | SERVICES, CORE | [address] | | | + + + + + INR (08/11/2019 2:30 PM PDT) + +-------+ [...] | + + + + + | [facility] | [address] | [place] [address] | | | SERVICES, CORE | [address] | | | + + + + + documented in this encounter Visit Diagnoses + + | Diagnosis | + + | MDS (myelodysplastic syndrome) (HCC) - Primary Myelodysplastic syndrome, unspecified | + + | Pancytopenia (HCC) Other pancytopenia | + + | Hypomagnesemia Disorders of magnesium metabolism | + + | Acute myeloid leukemia not having achieved remission (HCC) | + + | Finding of other specified substances, not normally found in blood | + + documented in this encounter"
--- OUTSIDE RECORDS SUMMARY | ~2019-12-27 | XMS | Encounter Summary ---
Demographics + + + | Address | [address] | | | [place] [address] | + + + | Home Phone | | + + + | Preferred Language | Unknown | + + + | Marital Status | | + + + | Scientology Affiliation | LUT | + + + | Race | White | + + + | Ethnic Group | Not or | + + + Author + + + | Author | [facility] | + + + | Organization | [facility] | + + + | [...] Team Providers + +------+ + | Care Senior Producer Name | Role | Phone | + [...] S | | | | | | [facility] [address] | | | | | | [facility] | | | | | | [facility] and Healing, | | | | | | [address] | | | | | | [place], [place] | | | | | | [address] | | | | | | [phone] | | | +--------+ + + + [...] | | | | | | [place] [address] | | | | | | [phone] | | | | | | | | +--------+ + + + + | 01/14/ | Appointment | Hematology & | Onc, Gen [address] | | | 2020 | | Oncology | [place] | | | | | | [place] [address] | | +--------+ + + + + documented as of this encounter Visit Diagnoses Not on filedocumented in this encounter"
--- OUTSIDE RECORDS SUMMARY | ~2019-12-27 | XMS | Encounter Summary ---
Demographics + + + | Address | [address] | | | [place] [address] | + + + | Home Phone | | + + + | Preferred Language | Unknown | + + + | Marital Status | | + + + | Sikhism Affiliation | LUT | + + + | Race | White | + + + | Ethnic Group | Not or | + + + Author + + + | Author | [facility] | + + + | Organization | [facility] | + + + | Address | [...] Team Providers + +------+ + | Care Checking Department Supervisor Name | Role | Phone | + +------+ + | Oz Rodriguez MD | PCP | | + +------+ + Reason for Referral Diagnostic Testing (Routine) + +--------+ + + + + | Status | Reason | Specialty | Diagnoses / | Referred By | Referred To | | | | | Procedures | Contact | Contact | + +--------+ + + + + | New Request | | Cardiology | Diagnoses | Parisa | Nadya | | | | | | Daysi Ramires MD | Health & | | | | | Myelofibrosi | [address] | [facility] | | | | | s (HCC) | Leonel Otero | [address] | | | | | Procedures | Rd | [place] | | | | | TRANSTHORACI | [place], [place] | ROAD | | | | | C | | [place], [place] | | | | | ECHOCARDIOGR | Phone: | [phone] | | | | | AM, ADULT | [phone] | Phone: | | | | | | Fax: | [phone] | | | | | | [phone] | | + +--------+ + + + + Encounter Details +--------+ + + + + | Date | Type | Department | Care Team | Description | +--------+ + + + + | 12/22/ | Fitness Coordinator | [facility] | Daysi Mccauley MD | Myelofibrosis (HCC) | | 2019 | | Clinics at S | [address] | (Primary Dx) | | | | [facility] [address] | [place], | | | | | [facility] | [place] [address] | | | | | Health and Healing, | [phone] | | | | | [facility] | | | | | | [place], [place] | | | | | | [address] | | | | | | [phone] | | | +--------+ + + + [...] | | | | | Elise [place], | | | | | | [place] [address] | | | | | | [phone] | | | | | | | | +--------+ + + + + | 01/14/ | Appointment | Hematology & | Onc, Gen [address] | | | 2019 | | Oncology | [place], | | | | | | [place] [address] | | +--------+ + + + + + +------+--------+ + + | Name | Type | Priori | Associated Diagnoses | Order Schedule | | | | ty | | | + +------+--------+ + + | TRANSTHORACIC | ECG | Routin | Myelofibrosis | Ordered: 12/23/2019 | | ECHOCARDIOGRAM, | | e | (HCC) | | | ADULT | | | | | + +------+--------+ + + documented as of this encounter Visit Diagnoses + + | Diagnosis | + + | Myelofibrosis (HCC) - Primary Myelofibrosis | + + documented in this encounter"
--- OUTSIDE RECORDS SUMMARY | ~2019-12-27 | XMS | Encounter Summary ---
Demographics + + + | Address | [address] | | | [place] [address] | + + + | Home Phone | | + + + | Preferred Language | Unknown | + + + | Marital Status | | + + + | Christian Affiliation | LUT | + + + | Race | White | + + + | Ethnic Group | Not or | + + + Author + + + | Author | [facility] | + + + | Organization | [facility] | + + + | [...] Team Providers + +------+ + | Care Assistant Branch Operations Manager Name | Role | Phone | + +------+ + | Oz Rodriguez MD | PCP | | + +------+ + Reason for Visit + + + | Reason | Comments | + + + | Lab Draw | picc | + + + Encounter Details +--------+ + + + + | Date | Type | Department | Care Team | Description | +--------+ + + + + | 12/16/ | Clinical | Laboratory at [facility] | | Lab Draw ([facility]) | | 2020 | Support | [address] | | | | | Staff | [facility] | | | | | | and Healing, | | | | | | [address] | | | | | | [place], [place] | | | | | | [address] | | | | | | [phone] | | | +--------+ + + + [...] documented as of this encounter Progress Notes Rosey Hanna RN - 12/17/2019 8:20 AM PDTPICC accessed per protocol. Good blood return not ed. Appropriate waste discarded. Labs drawn and sent. PICC pulse flushed with 20 mL NS. documented in this encoun ter Plan of [...] | | | | | [place], | | | | | | [place] [address] | | | | | | [phone] | | | | | | | | +--------+ + + + + | 01/14/ | Appointment | Hematology & | Onc, Gen [address] | | | 2019 | | Oncology | [place], | | | | | | [place] [address] | | +--------+ + + + + documented as of this encounter Procedures + +--------+ + + + | Procedure Name | Priori | Date/Time | Associated Diagnosis | Comments | | | ty | | | | + +--------+ + + + | [facility] - MAGNESIUM, | Routin | 12/17/2019 | Neutropenic | Results for this | | PLASMA | e | 7:56 AM | splenomegaly | procedure are in the | | | | PDT | Myelofibrosis (HCC) | results section. | + +--------+ + + + | [facility] - PHOSPHORUS, | Routin | 12/17/2019 | Pancytopenia (HCC) | Results for this | | PLASMA | e | 7:56 AM | | procedure are in the | | | | PDT | | results section. | + +--------+ + + + | [facility] - LDH TOTAL, | Routin | 12/17/2019 | Myelofibrosis | Results for this | | PLASMA | e | 7:56 AM | (HCC) | procedure are in the | | | | PDT | | results section. | + +--------+ + + + | CBC AND AUTO DIFF - | Routin | 12/17/2019 | Myelofibrosis | Results for this | | [facility] | e | 7:56 AM | (HCC) | procedure are in the | | | | PDT | | results section. | + +--------+ + + + | COMPLETE METABOLIC | Routin | 12/17/2019 | Myelofibrosis | Results for this | | PANEL - OLP | e | 7:56 AM | (HCC) | procedure are in the | | | | PDT | | results section. | + +--------+ + + + | CBC WITH AUTO DIFF - | Routin | 12/17/2019 | Myelofibrosis | Results for this | | OLP | e | 7:56 AM | (HCC) | procedure are in the | | | | PDT | | results section. | + +--------+ + + + | RBC MORPHOLOGY | Routin | 12/17/2019 | Myelofibrosis | | | | e | 7:56 AM | (HCC) | | | | | PDT | | | + +--------+ + + + | MANUAL DIFFERENTIAL | Routin | 12/17/2019 | Myelofibrosis | Results for this | | | e | 7:56 AM | (HCC) | procedure are in the | | | | PDT | | results section. | + +--------+ + + + | [facility] - COMPLETE | Routin | 12/17/2019 | Myelofibrosis | Results for this | | METABOLIC SET | e | 7:56 AM | (HCC) | procedure are in the | | | | PDT | | results section. | + +--------+ + + + | [facility] - URINE, | Routin | 12/17/2019 | Pancytopenia (HCC) | Results for this | | MICROSCOPIC | e | 7:56 AM | | procedure are in the | | | | PDT | | results section. | + +--------+ + + + | [facility] - CULTURE, URINE | Routin | 12/17/2019 | Pancytopenia (HCC) | Results for this | | SCREEN | e | 7:56 AM | | procedure are in the | | | | PDT | | results section. | + +--------+ + + + | BLOOD BANK HOLD TUBE | Routin | 12/17/2019 | Pancytopenia (HCC) | Results for this | | - DON | e | 7:56 AM | | procedure are in the | | | | PDT | | results section. | | T PROCESS | | | | | + +--------+ + + + | LIPID SET (TRIG, T | Routin | 12/17/2019 | Mild | Results for this | | CHOL, HDL, CALC LDL) | e | 7:56 AM | protein-calorie | procedure are in the | | | | PDT | malnutrition (HCC) | results section. | | | | | Myelofibrosis (HCC) | | + +--------+ + + + | HEMOGLOBIN A1C, | Routin | 12/17/2019 | Personal history | Results for this | | BLOOD | e | 7:56 AM | of diseases of the | procedure are in the | | | | PDT | blood and | results section. | | | | | blood-forming organs | | | | | | and certain | | | | | | disorders involving | | | | | | the immune mechanism | | | | | | Myelofibrosis | | | | | | (HCC) | | + +--------+ + + + | HCG BETA QUANT, | Routin | 12/17/2019 | Other abnormal | Results for this | | PLASMA | e | 7:56 AM | tumor markers | procedure are in the | | | | PDT | Myelofibrosis (HCC) | results section. | + +--------+ + + + documented in this encounter Results RBC MORPHOLOGY (12/17/2019 7:56 AM PDT) + + | Specimen | + + | Blood - Blood | | (substance) | + + + + + + + | Performing | Address | City/State/Zipcode | Phone Number | | Organization | | | | + + + + + | [facility] | [address] | [place] [address] | | | [facility], [facility] | | | | | [facility] + [facility] | | | | + + + + + MANUAL DIFFERENTIAL (12/17/2019 7:56 AM PDT) + + + + + + | Component | Value | Ref Range | Performed | Pathologist | | | | | At | Signature | + + + + + + | NEUTROPHIL | 39.8 (L) | 50.0 - 70.0 % | [facility] | | | % | | | LABORATORY | | | | | | SERVICES, | | | | | | [facility] + | | | | | | [facility] | | + + + + + + | LYMPHOCYTE | 39.8 | 18.0 - 42.0 % | [facility] | | | % | | | LABORATORY | | | | | | SERVICES, | | | | | | [facility] | [facility] + | | | | | | [facility]ALING | | + + + + + + | MONOCYTE % | 2.7 (L) | 3.5 - 9.0 % | [...] + + + | BASOPHIL % | 0.9 | 0.0 - 2.0 % | [facility] | | | | | | LABORATORY | | | | | | SERVICES, | | | | | | [facility] + | | | | | | [facility]ALING | | + + + + + + | IG% | 5.3 (H) | 0.0 - 1.0 % | [facility] | | | | | | LABORATORY | | | | | | SERVICES, | | | | | | [facility] + | | | | | | [facility]AL[facility] | | + + + + + + | ATYPICAL | 11.5 (HH)Comment: | 0.0 % | [facility] | [...] + + + + | NEUTROPHIL | 1.20 (L) | 1.80 - 7.70 | [facility] | | | # | | K/cu mm | LABORATORY | | | | | | SERVICES, | | | | | | [facility] | [facility] + | | | | | | [facility]ALING | | + + + + + + | LYMPHOCYTE | 1.20 | 1.00 - 4.80 | [facility] | | | # | | K/cu mm | LABORATORY | | | | | | SERVICES, | | | | | | [facility] | [facility] + | | | | | | [facility]ALING | | + + + + + + | MONOCYTE # | 0.08 (L) | 0.10 - 0.90 | [facility] [...] + + + + | IG# | 0.16 (H) | 0.00 - 0.10 | [facility] | | | | | K/cu mm | LABORATORY | | | | | | SERVICES, | | | | | | [facility] | [facility] + | | | | | | [facility]ALING | | + + + + + + | ATYPICAL | 0.35 | K/cu mm | [facility] | | [...] | [facility] | [address] | [place] [address] | | | SERVICES, [facility] | | | | [facility] + [facility] | | | | + + + + + [facility] - PHOSPHORUS, PLASMA (12/17/2019 7:56 AM PDT) + +-------+ + + + | Component | Value | Ref Range | Performed | Pathologist | | | | | At | Signature | + +-------+ + + + | PHOSPHORUS, | 4.7 | 2.4 - 4.7 mg/dL | [facility] [...] | + + + + + | [employer] | [address] | [place] [address] | | | SERVICES, [facility] | | | | [facility] + [facility] | | | | + + + + + BLOOD BANK HOLD TUBE - DON T PROCESS (12/17/2019 7:56 AM PDT) + + + [...] [facility] | [address] | [place] [address] | | | SERVICES, | [address] [...] | | | LABORATORY | | | [facility], | | | [facility] | | | [facility] + | | | [facility] | + + + + + + + + | Performing | Address | City/State/Zipcode | Phone Number | | Organization | | | | + + + + + | [facility] | [address] | [place] [address] | | | [facility] | [facility] | | | | + + + + + [facility] - URINE, MICROSCOPIC (12/17/2019 7:56 AM PDT) [...] + | [facility] | [address] | [place] [address] | | | SERVICES, [facility] | | | | | HEALTH + HEALING | | | | + + + + + [facility] - LDH TOTAL, PLASMA (12/17/2019 7:56 AM PDT) + +---------+ + + + | Component | Value | Ref Range | Performed | Pathologist | | | | | At | Signature | + +---------+ + + + | LD TOTAL, | 316 (H) | <=250 U/L | [facility] | [...] + | [facility] | [address] | [place] [address] | | | SERVICES, [facility] | [facility] | [facility] + [facility] | | | | + + + + + [facility] - MAGNESIUM, PLASMA (12/17/2019 7:56 AM PDT) + +-------+ + [...] + | [facility] | [address] | [place] [address] | | | [facility] | | | | | [facility] + HEALING | | | | + + + + + HCG BETA QUANT, PLASMA (12/17/2019 7:56 AM PDT) + +-------+ + + + | Component | Value | Ref Range | Performed | Pathologist | | | | | At | Signature | + +-------+ + + + | HCG BETA, | <1 | No reference | [facility] | | | PLASMA | | ranges have | LABORATORY | | | | | been | [facility], | | | | | established | CORE | | | | | mIU/mL | | | + +-------+ + + + + + | Specimen | + + | Blood - Blood | | (substance) | + + + + + | Narrative | Performed At | + + + | HCG Reference ranges Males: <2 | [facility] | | mIU/mL Non- Females: <3 mIU/mL | LABORATORY | | Females: >5 mIU/mL HCG Ranges During Normal | SERVICES, CORE | | : Weeks Post Last Menstrual Period: Approximate hCG | | | Range, mIU/mL 3-4 weeks | | | 9 - 130 4-5 weeks | | | 75 - 2600 5-6 weeks | | | 850 - 75574 6-7 weeks | | | 4000 - 058635 7-12 weeks | | | 58017 - 104468 12-16 weeks | | | 08595 - 990526 16-29 | | | weeks 1400 - 51178 | | | 29-41 weeks 940 - 84000 | | | This test has not been approved for use as a tumor marker in | | | males or females. | | + + + + + + + + | Performing | Address | City/State/Zipcode | Phone Number | | Organization | | | | + + + + + | [facility] | [address] | [place] [address] | | | SERVICES, CORE | [address] | | | + + + + + LIPID SET (TRIG, T CHOL, HDL, CALC LDL) (12/17/2019 7:56 AM PDT) + +---------+ + + + | Component | Value | Ref Range | Performed | Pathologist | | | | | At | Signature | + +---------+ + + + | CHOLESTEROL | 166 | <200 mg/dL | [facility] | | | (LAB) | | | LABORATORY | | | | | | SERVICES, | | | | | | CORE | | + +---------+ + + + | TRIGLYCERID | 108 | <150 mg/dL | [facility] | | [...] +---------+ + + + | LDL | 98 | <100 mg/dL | [facility] | | | CHOLESTEROL | | | LABORATORY | | | , | | | SERVICES, | | | CALCULATED | | | CORE | | + +---------+ + + + | VLDL | 22 | <31 mg/dL | [facility] | | | CHOLESTEROL | | | LABORATORY | | | , | | | SERVICES, | | | CALCULATED | | | CORE | | + +---------+ + + + | NON-HDL | 120 | <130 mg/dL | [facility] | | [...] | + + + + + | [facility] | [address] | [place] [address] | | | SERVICES, [facility] | [address] | | | + + + + + HEMOGLOBIN A1C, BLOOD (12/17/2019 7:56 AM PDT) + + + + + + | Component | Value | Ref Range | Performed | Pathologist | | | | | At | Signature | + + + + + + | HEMOGLOBIN | 7.0 (H)Comment: Hgb A1C | <5.7 % | [facility] | | | A1C | Interpretive | | LABORATORY | | | | Information: | | SERVICES, | | | | <5.7% - Normal | | SPECIAL IMM | | | | 5.7-6.4% - Consistent | | + COAG | | | | with pre-diabetes | | | | | | >6.4% - Consistent | | | | | | with diabetes | | | | | | | | | | + + + + + + | ESTIMATED | 154Comment: The | mg/dL | [facility] | | | AVERAGE | estimated Average | | LABORATORY | | | GLUCOSE | Glucose (eAG) number is | | SERVICES, | | | | calculated from the | | SPECIAL IMM | | | | result of the A1c test. | | + COAG | | | | The eAG shows what the | | | | | | average blood glucose | | | | | | was over the previous 2 | | | | | | to 3 months. | | | | + + + + + + + + | Specimen | + + | Blood - Blood | | (substance) | + + + + + | Narrative | Performed At | + + + | Alternate forms of testing such as fructosamine should be | [facility] | | considered for monitoring retirement glycemic control in patients with: | LABORATORY | | Increased red cell turnover, certain hemoglobinopathies (e.g., HbS, | SERVICES, | | HbE, HbC and thalassemia syndromes), anemias, blood loss, chronic | SPECIAL IMM + | | liver disease and hemochromatosis (artefactually low HbA1c); iron | [facility] | | deficiency anemia (artefactually high HbA1c due to enhanced glycation | | | of hemoglobin). | | + + + + + + + + | Performing | Address | City/State/Zipcode | Phone Number | | Organization | | | | + + + + + | [facility] | [address] | [place] [address] | | | SERVICES, SPECIAL | [address] | | | | IMM + [place]AG | | | | + + + + + H - COMPLETE METABOLIC SET (12/17/2019 7:56 AM PDT) + +---------+ + + + | Component | Value | Ref Range | Performed | Pathologist | | | | | At | Signature | + +---------+ + + + | GLUCOSE, | 189 (H) | 70 - 99 mg/dL | [facility] | | | PLASMA | | | LABORATORY | | | (LAB) | | | SERVICES, | | | | | | [facility] | [facility] | | [facility] + | | | | | | HEALING | | + +---------+ + + + | BUN, PLASMA | 24 (H) | 6 - 20 mg/dL | [facility] | | | (LAB) | | | LABORATORY | | | | | | SERVICES, | | | | | | [facility] | | [facility] + | | | | | | HEALING | | + +---------+ + + + | CREATININE | 0.89 | 0.60 - 1.10 | [facility] | [...] | | | LABORATORY | | | [facility] | | | SERVICES, | | | [...] +---------+ + + + | SODIUM, | 138 | 136 - 145 | [facility] | | | PLASMA | | mmol/L | LABORATORY | | | (LAB) | | | SERVICES, | | | | | | [facility] | | | [facility] + | | | | | | HEALING | | + +---------+ + + + | POTASSIUM, | 4.0 | 3.4 - 5.0 | [facility] | | | PLASMA | | mmol/L | LABORATORY | | | (LAB) | | | SERVICES, | | | | | | [facility] | | | [facility] + | | | | | | HEALING | | + +---------+ + + + | CHLORIDE, | 100 | 97 - 108 mmol/L | [facility] [...] +---------+ + + + | CALCIUM, | 8.5 (L) | 8.6 - 10.2 | [facility] | | | PLASMA | | mg/dL | LABORATORY | | | (LAB) | | | SERVICES, | | | | | | [facility] | [facility] | | [facility] + | | | | | | HEALING | | + +---------+ + + + | CALCIUM(ALB | 9.2 | 8.6 - 10.2 | [facility] | | | CORRECTED) | | mg/dL | LABORATORY | | | | | | SERVICES, | | | | | | [facility] | | [facility] + | | | | | | HEALING | | + +---------+ + + + | BILIRUBIN | 0.4 | 0.3 - 1.2 mg/dL | [facility] | | | TOTAL | | | LABORATORY | | | | | | SERVICES, | | | | | | [facility] | | [facility] + | | | | | | HEALING | | + +---------+ + + + | TOTAL | 7.3 | 6.4 - 8.2 g/dL | [facility] | | | PROTEIN, | | | LABORATORY | | | PLASMA | | | SERVICES, | | | (LAB) | | | [facility] | | | [facility] + | | | | | | HEALING | | + +---------+ + + + | ALBUMIN, | 3.1 [...] + + + | ALK PHOS | 278 (H) | 53 - 141 U/L | [facility] | | | | | | LABORATORY | | | | | | SERVICES, | | | | | | [facility] | [facility] + | | | | | | HEALING | | + +---------+ + + + | AST(SGOT) | 14 | <=41 U/L | [facility] | | | | | | LABORATORY | | | | | | SERVICES, | | | | | | [facility] | | [facility] + | | | | | | HEALING | | + +---------+ + + + | ALT (SGPT) | 24 | <=60 U/L | [facility] | | | | | | LABORATORY | | | | | | SERVICES, | | | | | | [facility] | | [facility] + | | | | | | HEALING | | + +---------+ + + + | ANION GAP | 12 (H) | 4 - 11 mmol/L | [facility] | | | | | | LABORATORY | | | | | | SERVICES, | | | | | | [facility] | | [facility] + | | | | | | HEALING | | + +---------+ + + + | ANION | 14 (H) | 4 - 11 mmol/L | [...] +---------+ + + + | BUN/CREATIN | 27 (H) | 8 - 25 | [facility] | | | INE RATIO | | | LABORATORY | | | | | | SERVICES, | | | | | | [facility] | | [facility] + | | | | | | HEALING | | + +---------+ + + + | GLOBULIN | 4.2 (H) | 2.3 - 3.5 gm/dL | [facility] | | | LVL | | | LABORATORY | | | | | | SERVICES, | | | | | | [facility] | | | [facility] + | | | | | | HEALING | | + +---------+ + + + | ALBUMIN/ASHA | 0.7 [...] MDRD equation recommended by the National | [facility] | | Kidney Disease Education Program. Estimated [...] | + + + + + | [facility] | [address] | [place] [address] | | | SERVICES, [facility] | | | | [facility] + [facility]ALING | | | | + + + + + CBC AND AUTO DIFF - [facility] (12/17/2019 7:56 AM PDT) + + + + + + | Component | Value | Ref Range | Performed | Pathologist | | | | | At | Signature | + + + + + + | WHITE CELL | 3.01 (L) | 3.50 - 10.80 | [facility] | | | COUNT | | K/cu mm | LABORATORY | | | | | | SERVICES, | | | | | | [facility] | | [facility] + | | | | | | HEALING | | + + + + + + | RED CELL | 2.39 (L) | 4.00 - 5.20 | [facility] | | | COUNT | | M/cu mm | LABORATORY | | | | | | SERVICES, | | | | | | [facility] | [facility] + | | | | | | HEALING | | + + + + + + | HEMOGLOBIN | 7.2 (L) | 12.0 - 16.0 | [facility] | | | | | g/dL | LABORATORY | | | | | | SERVICES, | | | | | | [facility] | | | | [facility] + | | | | | | HEALING | | + + + + + + | HEMATOCRIT | 20.9 (L) | 36.0 - 46.0 % | [facility] | | | | | | LABORATORY | | | | | | SERVICES, | | | | | | [facility] | | [facility] + | | | | | | HEALING | | + + + + + + | MCV | 87.4 | 80.0 - 100.0 fL | [facility] | | | | | | LABORATORY | | | | | | SERVICES, | | | | | | [facility] | [facility] + | | | | | | HEALING | | + + + + + + | MCHC | 34.4 | 32.0 - 36.0 | [facility] | | | | | g/dL | LABORATORY | | | | | | SERVICES, | | | | | | [facility] | | | [facility] + | | | | | | HEALING | | + + + + + + | RDW SD | 44.2 | 35.1 - 46.3 fL | [facility] | | | | | | LABORATORY | | | | | | SERVICES, | | | | | | [facility] | [facility] + | | | | | | HEALING | | + + + + + + | PLATELET | 31 (L) | 150 - 400 K/cu | [facility] | | | COUNT | | mm | LABORATORY | | | | | | SERVICES, | | | | | | [facility] | [facility] + | | | | | | HEALING | | + + + + + + | MPV | 13.3 (H) | 9.7 - 12.3 fL | [facility] | | | | [...] + + + + | NEUTROPHIL | 1.01 (L)Comment: | 1.80 - 7.70 | [facility] [...] | + + + + + | [employer] | [address] | [place] [address] | | | [facility] | | | | | HEALTH + HEALING | | | | + + + + + documented in this encounter Visit Diagnoses + + | Diagnosis | + + | Myelofibrosis (HCC) - Primary Myelofibrosis | + + | Personal history of diseases of the blood and blood-forming organs and certain | | disorders involving the immune mechanism | + + | Mild protein-calorie malnutrition (HCC) Malnutrition of mild degree | + + | Other abnormal tumor markers Other abnormal tumor markers | + + | Neutropenic splenomegaly Neutropenic splenomegaly | + + | Pancytopenia (HCC) Other pancytopenia | + + documented in this encounter"
--- OUTSIDE RECORDS SUMMARY | ~2019-12-27 | XMS | Encounter Summary ---
Demographics + + + | Address | [address] | | | [place] [address] | + + + | Home Phone | | + + + | Preferred Language | Unknown | + + + | Marital Status | | + + + | Yarsanism Affiliation | LUT | + + + | Race | White | + + + | Ethnic Group | Not or | + + + Author + + + | Author | [facility] | + + + | Organization | [facility] | + + + | Address [...] Team Providers + +------+ + | Care Building Illuminating Engineer Name | Role | Phone | + +------+ + | Margarita Patterson | PCP | | + +------+ + Reason for Visit + + + | Reason | Comments | + + + | Prior Authorization | | | Request | | + + + Encounter Details +--------+ + + + + | Date | Type | Department | Care Team | Description | +--------+ + + + + | 08/25/ | Telephone | Pharmacy @ [facility] | Kimberli Larkin CPhT | Prior Authorization | | 2020 | | [address] | [phone] | Request | | | | [place] Mailcode: | [address] [place], | | | | | [facility] | [place] [address] | | | | | [address], | | | | | | [address] | | | | | | [place], [place] | | | | | | [address] | | | +--------+ + + + [...] | | | | | | [place] [address] | | | | | | [phone] | | | | | | | | +--------+ + + + + | 01/14/ | Appointment | Hematology & | Onc, [address] | | | 2019 | | Oncology | [place], | | | | | | [place] [address] | | +--------+ + + + + documented as of this encounter Visit Diagnoses Not on filedocumented in this encounter"
--- OUTSIDE RECORDS SUMMARY | ~2019-12-27 | XMS | Encounter Summary ---
Demographics + + + | Address | [address] | | | [place] [address] | + + + | Home Phone | | + + + | Preferred Language | Unknown | + + + | Marital Status | | + + + | Worship Affiliation | LUT | + + + | Race | White | + + + | Ethnic Group | Not or | + + + Author + + + | Author | [facility] | + + + | Organization | [facility] | + + + | [...] Team Providers + +------+ + | Care Medical Insurance Coding Specialist Name | Role | Phone | + +------+ + | Oz Rodriguez MD | PCP | | + +------+ + Encounter Details +--------+ + + + + | Date | Type | Department | Care Team | Description | +--------+ + + + + | 08/17/ | Document-Sc | UNKNOWN DEPARTMENT | Other, Faculty | | | 2020 | [facility] | [address] [facility] | [phone] | | | | | [address] | | | | | | [place], [place] | | | | | | [address] | | | +--------+ + + + [...] month, have you been in contact | Unable to assess | 08/19/2019 11:46 AM | | with someone who was [...] | | | | | [place], | | | | | | [place] [address] | | | | | | [phone] | | | | | | | | +--------+ + + + + | 01/14/ | Appointment | Hematology & | Onc, [address] | | | 2020 | | Oncology | [place], | | | | | | [place] [address] | | +--------+ + + + + documented as of this encounter Visit Diagnoses Not on filedocumented in this encounter"
--- OUTSIDE RECORDS SUMMARY | ~2019-12-27 | XMS | Encounter Summary ---
Demographics + + + | Address | [address] | | | [place] [address] | + + + | Home Phone [...] Team Providers + +------+ + | Care Utility Bag Assembler Name | Role | Phone | + +------+ + | SilverioMargarita crawford VOICE INSTRUCTOR | PCP | | + +------+ + Encounter Details +--------+--------+ + + + | Date | Type | Department | Care Team | Description | +--------+--------+ + + + | 08/10/ | Travel | | | | | [...] | | | | | | [place] [address] | | | | | | [phone] | | | | | | | | +--------+ + + + + | 01/14/ | Appointment | Hematology & | Onc, [address] | | | 2019 | | Oncology | [place] | | | | | | [place] [address] | | +--------+ + + + + documented as of this encounter Visit Diagnoses Not on filedocumented in this encounter"
--- OUTSIDE RECORDS SUMMARY | ~2019-12-27 | XMS | Encounter Summary ---
Demographics + + + | Address | [address] | | | [place] [address] | + + + | Home Phone | | + + + | Preferred Language | Unknown | + + + | Marital Status | | + + + | Yarsanism Affiliation | LUT | + + + | Race | White | + + + | Ethnic Group | Not or | + + + Author + + + | Author | [facility] | + + + | Organization | [facility] | + + + | Address [...] Team Providers + +------+ + | Care Drywall Professional Name | Role | Phone | + +------+ + | Oz Rodriguez MD | PCP | | + +------+ + Encounter Details +--------+ + + + + | Date | Type | Department | Care Team | Description | +--------+ + + + + | 08/26/ | Pharmacy | [facility] | | | | 2020 | Visit | [address] | | | | | | [address] | | | | | | [place] [address] | | | | | | [phone] | | | +--------+ + + + [...] | | | | | [place], | | | | | | [place] [address] | | | | | | [phone] | | | | | | | | +--------+ + + + + | 01/14/ | Appointment | Hematology & | Onc, [address] | | | 2019 | | Oncology | [place] | | | | | | [place] [address] | | +--------+ + + + + documented as of this encounter Visit Diagnoses Not on filedocumented in this encounter"
--- OUTSIDE RECORDS SUMMARY | ~2019-12-27 | XMS | Encounter Summary ---
Demographics + + + | Address | [address] | | | [place] [address] | + + + | Home Phone [...] Team Providers + +------+ + | Care Stripper Soft Plastic Name | Role | Phone | + +------+ + | Oz Rodriguez MD | PCP | | + +------+ + Reason for Visit + + + | Reason | Comments | + + + | faxed communication | Are needing chart notes from 11/09 Urgent | + + + Encounter Details +--------+ + + + + | Date | Type | Department | Care Team | Description | +--------+ + + + + | 11/10/ | MyChart | [facility] | Sheri Rosado, | RE: after visit | | 2020 | Encounter | Clinics at S | [address] | summary | | | | [facility] [address] | [place] | | | | | [facility] | [place], [place] | | | | | [facility] and Healing, | [address] | | | | | [facility] [address] | [phone] | | | | | [place], [place] | | | | | | [address] | | | | | | [phone] | | | +--------+ + + + [...] | | | | | | [place] [address] | | | | | | [phone] | | | | | | | | +--------+ + + + + | 01/14/ | Appointment | Hematology & | Onc, [address] | | | 2019 | | Oncology | [place] | | | | | | [place] [address] | | +--------+ + + + + documented as of this encounter Visit Diagnoses Not on filedocumented in this encounter"
--- OUTSIDE RECORDS SUMMARY | ~2019-12-27 | XMS | Encounter Summary ---
Demographics + + + | Address | [address] | | | [place] [address] | + + + | Home Phone | | + + + | Preferred Language | Unknown | + + + | Marital Status | | + + + | Jainism Affiliation | LUT | + + + | Race | White | + + + | Ethnic Group | Not or | + + + Author + + + | Author | [facility] | + + + | Organization | [facility] | + + + | Address [...] Team Providers + +------+ + | Care Youth Officer Name | Role | Phone | [...] + + + + | 12/16/ | Documentati | [facility] | Daysi Mccauley MD | Research | | 2020 | on | Clinics at S | [address] [facility] | Documentation | | | | [place] [address] [place], | | | | | [facility] | [place] [address] | | | | | Health [facility] He[facility], | [phone] | | | | | [address] | | | | | | [place], [place] | | | | | | [address] | | | | | | [phone] | | | +--------+ + + + [...] | | | | | | [place] [address] | | | | | | [phone] | | | | | | | | +--------+ + + + + | 01/14/ | Appointment | Hematology & | Onc, [address] | | | 2019 | | Oncology | [place], | | | | | | [place] [address] | | +--------+ + + + + documented as of this encounter Visit Diagnoses Not on filedocumented in this encounter"
--- OUTSIDE RECORDS SUMMARY | ~2019-12-27 | XMS | Clinical Summary ---
Demographics + + + | Address | [address] | | | [place] [address] | + + + | Home Phone | | + + + | Preferred Language | Unknown | + + + | Marital Status | | + + + | Sikh Affiliation | LUT | + + + | Race | White | + + + | Ethnic Group | Not or | + + + Author + + + | Author | [facility] | + + + | Organization | [facility] | + + + | Address | Unknown | + + + | Phone | Unavailable | + + + Support + + + + + | Name | Relationship | Address | Phone | + + + + + | Sky Pickett | ECON | Unknown | | + + + + + | Cherelle Silva | ECON | [place], | | + + + + + Care Team Providers + +------+ + | Care Sensor Operator Name | Role | Phone | + +------+ + | Oz Rodriguez MD | PCP | | + +------+ + Source Comments ABIGAIL is fully live on both [facility] Ambulatory and [facility] InPatient.[facility] Allergies No Known Allergies Medications + + + +---------+------+------+-------+ | Medication | Sig | Dispensed | Refills | Star | End | Statu | | | | | | t | Date | s | | | | | | Date | | | + + + +---------+------+------+-------+ | losartan 100 mg | Take 100 mg by mouth | | 0 | | | Activ | | oral tablet | once daily. | | | | | e | + + + +---------+------+------+-------+ | | Take 25 mg by mouth | | 0 | | | Activ | | hydroCHLOROthiazide | once daily. | | | | | e | | 25 mg oral tablet | | | | | | | + + + +---------+------+------+-------+ | levothyroxine 25 | Take 25 mcg by mouth | | 0 | | | Activ | | mcg oral tablet | before breakfast. | | | | | e | + + + +---------+------+------+-------+ | acyclovir 800 mg | Take 1 tablet by | 30 | 11 | 03/0 | | Activ | | oral | mouth once daily. 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 Administer | | | 20 | | | | Pain | with food. | | | | | | | | Indications: Pain | | | | | | + + + +---------+------+------+-------+ | fluconazole 200 mg | Take 1 tablet by | 60 | 3 | 03/2 | | Activ | | oral | mouth two times | tablet | | 0/20 | | e | | tabletIndications: | daily. Indications: | | | 20 | | | | fungal infection, | fungal infection | | | | | | | prophylaxis | prevention | | | | | | + + + +---------+------+------+-------+ +---+ + | | Additional | | | InformationPatient | | | not taking. Reported | | | on 12/17/2019 8:57 | | | AM | +---+ + + + +--------+---+------+---+-------+ | acetaminophen 500 | Take 500 mg by mouth | | 0 | | | Activ | | mg oral tablet | every six hours as | | | | | e | | | needed for mild | | | | | | | | pain. | | | | | | + + +--------+---+------+---+-------+ | ruxolitinib | Take 1 tablet by | 60 | 4 | 04/1 | | Activ | | (JAKAFI) 5 mg oral | mouth two times | tablet | | 0/20 | | e | | tablet | daily. | | | 20 | | | + + +--------+---+------+---+-------+ | DULoxetine 30 mg | Take 60 mg by mouth | | 0 | 10/03 | | Activ | | oral capsule,delayed | once daily. | | | 02/21 | | e | | release(/MISHEL) | | | | 20 | | | + + +--------+---+------+---+-------+ | cefPODOxime 200 mg | Take 1 tablet by | 60 | 5 | 11/03 | | Activ | | oral tablet | mouth every twelve | tablet | | 08/21 | | e | | | hours. | | | 20 | | | + + +--------+---+------+---+-------+ Active Problems + + + | Problem | Noted Date | + + + | Recurrent major depressive disorder, in partial remission | 11/19/2019 | + + + | Myelofibrosis | 11/19/2019 | + + + | Late onset Alzheimer's disease without behavioral disturbance | 11/19/2019 | + + + | Pancytopenia | 08/05/2019 | + + + Encounters +--------+ + + + + | Date | Type | Specialty | Care Team | Description | +--------+ + + + + | 12/24/ | Documentati | Hematology | Chrsity Mccauley MD | Research | | 2020 | on | Malignancy | | Documentation | +--------+ + + + + | 12/22/ | Kinesiotherapist | Hematology | Christy Mccauley MD | Myelofibrosis (HCC) | | 2020 | | Malignancy | | (Primary Dx) | +--------+ + + + + | 12/22/ | Documentati | Hematology | Christy Mccauley MD | Research | | 2020 | on | Malignancy | | Documentation | +--------+ + + + + | 12/16/ | Office | Hematology | Quinton Eduardo FNP | Myelofibrosis (HCC) | | 2020 | Visit | Malignancy | | (Primary Dx); | | | | | | Neutropenic | | | | | | splenomegaly ; | | | | | | Pancytopenia (HCC) | +--------+ + + + + | 12/16/ | Clinical | Phlebotomy | | Lab Draw (picc) | | 2020 | Support | | | | | | Staff | | | | +--------+ + + + + | 12/16/ | Hospital | Hematology & | | | | 2020 | Encounter | Oncology | | | +--------+ + + + + | 12/16/ | Documentati | Hematology | Christy Mccauley MD | Research | | 2019 | on | Malignancy | | Documentation | +--------+ + + + + 12/16/ | Telephone | Hematology | Cherry Roper PharmD | Oral Chemo | | 2020 | | Malignancy | | (Ruxolitinib) | +--------+ + + + + | 12/16/ | Orders Only | Hematology | Christy Mccauley MD | Myelofibrosis (HCC) | | 2020 | | Malignancy | | | +--------+ + + + + | 12/16/ | Kinesiotherapist | Hematology | Christy Mccauley MD | Myelofibrosis (HCC) | | 2020 | | Malignancy | | (Primary Dx) | +--------+ + + + + | 12/16/ | Pharmacy | Pharmacy Services | | | | 2020 | Visit | | | | +--------+ + + + + | 12/16/ | Travel | | | | | 2020 | | | | | +--------+ + + + + | 12/15/ | Kinesiotherapist | Hematology | Christy Mccauley MD | Myelofibrosis (HCC) | | 2020 | | Malignancy | | (Primary Dx); | | | | | | Personal history of | | | | | | diseases of the | | | | | | blood and | | | | | | blood-forming organs | | | | | | and certain | | | | | | disorders involving | | | | | | the immune mechanism | | | | | | | +--------+ + + + + | 12/15/ | Documentati | Hematology | Christy Mccauley MD | Research | | 2019 | on | Malignancy | | Documentation | +--------+ + + + + 12/15/ | Kinesiotherapist | Hematology | Christy Mccauley MD | Myelofibrosis (HCC) | | 2019 | | Malignancy | | (Primary Dx); | | | | | | Neutropenic | | | | | | splenomegaly ; Mild | | | | | | protein-calorie | | | | | | malnutrition (HCC) ; | | | | | | Other abnormal | | | | | | tumor markers | +--------+ + + + + | 12/15/ | Telephone | Hematology | Sheri Rosado, | Covid19 Screening | | 2019 | | Malignancy | MD | | +--------+ + + + + | 12/15/ | Document-Sc | Hematology | Christy Mccauley MD | | | 2019 | anned | Malignancy | | | +--------+ + + + + | 12/14/ | Document-Sc | | Other, Faculty | | | 2019 | anned | | | | +--------+ + + + + | 12/14/ | Pharmacy | | | | | 2019 | Visit | | | | +--------+ + + + + | 12/14/ | Pharmacy | Pharmacy Services | | | | 2019 | Visit | | | | +--------+ + + + + | 12/14/ | Refill | Hematology | Christy Mccauley MD | Refill Request; | | 2020 | | Malignancy | | Refill Request | +--------+ + + + + | 12/11/ | Document-Sc | Hematology | Dillon Bullock | | | 2020 | anned | Malignancy | | | +--------+ + + + + | 12/11/ | Telephone | Hematology | Christy Mccauley MD | Research | | 2020 | | Malignancy | | Documentation | | | | | | (Screening ECG | | | | | | Coordination) | +--------+ + + + + | 12/10/ | Documentati | Hematology | Erasto Villa | Research | | 2020 | on | Malignancy | | Documentation | +--------+ + + + + | 12/08/ | Hospital | Cardiology | | | | 2019 | Encounter | | | | +--------+ + + + + | 12/08/ | Office | Hematology | Christy Mccauley MD | Myelofibrosis (HCC) | | 2019 | Visit | Malignancy | | (Primary Dx) | +--------+ + + + + | 12/08/ | Hospital | Hematology & | A, Pod | | | 2019 | Encounter | Oncology | | | +--------+ + + + + | 12/08/ | Documentati | Hematology | Christy Mccauley MD | Research | | 2019 | on | Malignancy | | Documentation | +--------+ + + + + | 12/08/ | Telephone | Hematology | Christy Mccauley MD | Fever | | 2020 | | Malignancy | | (Recommedations for | | | | | | management ) | +--------+ + + + + | 12/08/ | Travel | | | | | 2020 | | | | | +--------+ + + + + | 12/07/ | Telephone | Hematology | Christy Mccauley MD | Lab Draw | | 2019 | | Malignancy | | | +--------+ + + + + | 12/07/ | Document-Sc | Hematology | Christy Mccauley MD | | | 2020 | anned | Malignancy | | | +--------+ + + + + | 12/07/ | Document-Sc | Hematology | Christy Mccauley MD | | | 2020 | anned | Malignancy | | | +--------+ + + + + | 12/06/ | Hospital | Radiology | Christy Mccauley MD | | | 2019 | Encounter | | | | +--------+ + + + + | 12/06/ | Travel | | | | | 2020 | | | | | +--------+ + + + + | 12/03/ | Office | Hematology | Christy Mccauley MD | MF (myelofibrosis) | | 2020 | Visit | Malignancy | | (HCC); On | | | | | | antineoplastic | | | | | | chemotherapy ; | | | | | | Adverse effect of | | | | | | chemotherapy, | | | | | | initial encounter | +--------+ + + + + | 12/03/ | Hospital | Hematology & | | | | 2020 | Encounter | Oncology | | | +--------+ + + + + | 12/03/ | Documentati | Hematology | Christy Mccauley MD | Research | | 2019 | on | Malignancy | | Documentation | +--------+ + + + + | 12/03/ | Travel | | | | | 2020 | | | | | +--------+ + + + + | 12/02/ | Pharmacy | Pharmacy Services | | | | 2020 | Visit | | | | +--------+ + + + + | 12/02/ | Telephone | Hematology | Christy Mccauley MD | Covid19 Screening | | 2020 | | Malignancy | | | +--------+ + + + + | 12/01/ | MyChart | Radiology | | Appointment Reminder | | 2019 | Encounter | | | | +--------+ + + + + | 12/01/ | Kinesiotherapist | Hematology | Christy Mccauley MD | MF (myelofibrosis) | | 2020 | | Malignancy | | (HCC) (Primary Dx) | +--------+ + + + + | 11/27/ | Document-Sc | Hematology | Christy Mccauley MD | | | 2020 | anned | Malignancy | | | +--------+ + + + + | 11/27/ | Telephone | Hematology | Christy Mccauley MD | Change of medication | | 2020 | | Malignancy | | (Stop Levaquin, | | | | | | Start Cefpodoxime, | | | | | | Hold Antifungal | | | | | | Today) | +--------+ + + + + | 11/25/ | Pharmacy | Pharmacy Services | | | | 2020 | Visit | | | | +--------+ + + + + | 11/24/ | Telephone | Hematology | Christy Mccauley MD | Research | | 2020 | | Malignancy | | Documentation | +--------+ + + + + | 11/23/ | Refill | Hematology | Christy Mccauley MD | Refill Request | | 2020 | | Malignancy | | (levoFLOXacin) | +--------+ + + + + | 11/19/ | MyChart | Radiology | | MRI Screening Form | | 2020 | Encounter | | | | +--------+ + + + + | 11/19/ | Pharmacy | | | | | 2019 | Visit | | | | +--------+ + + + + | 11/19/ | Pharmacy | Pharmacy Services | | | | 2019 | Visit | | | | +--------+ + + + + | 11/19/ | Pharmacy | Pharmacy Services | | | | 2019 | Visit | | | | +--------+ + + + + | 11/18/ | Video/TeleH | Internal Medicine | Eckstrom, | New patient | | 2020 | ealth-Sched | | Cata Felix MD | consultation | | | uled | | | | +--------+ + + + + | 11/17/ | Pharmacy | Pharmacy Services | | | | 2019 | Visit | | | | +--------+ + + + + | 11/11/ | Hospital | | | | | 2019 | Encounter | | | | +--------+ + + + + | 11/11/ | MyChart | Hematology | Sheri Rosado, | Geriatric Consult | | 2019 | Encounter | Malignancy | MD | | +--------+ + + + + | 11/10/ | MyChart | Hematology | Sheri Rosado, | RE: after visit | | 2020 | Encounter | Malignancy | MD | summary | +--------+ + + + + | 11/09/ | Office | Hematology | Sheri Rosado, | MF (myelofibrosis) | | 2019 | Visit | Malignancy | MD | (HCC) | +--------+ + + + + | 11/09/ | Procedure | Radiology | | | | 2020 | Pass | | | | +--------+ + + + + | 11/09/ | Kinesiotherapist | Hematology | Christy Mccauley MD | MF (myelofibrosis) | | 2020 | | Malignancy | | (HCC) (Primary Dx); | | | | | | Adverse effect of | | | | | | chemotherapy, | | | | | | initial encounter ; | | | | | | On antineoplastic | | | | | | chemotherapy ; | | | | | | Memory change | +--------+ + + + + | 11/09/ | Travel | | | | | 2020 | | | | | +--------+ + + + + | 11/06/ | Telephone | Hematology | Sheri Rosado, | Telephone follow-up | | 2019 | | Malignancy | MD | (Office visit vs | | | | | | Virtual visit) | +--------+ + + + + | 11/06/ | Telephone | Hematology | Sheri Rosado, | Covid19 Screening | | 2019 | | Malignancy | MD | | +--------+ + + + + | 11/05/ | Video/TeleH | Hematology | Christy Mccauley MD | | | 2019 | ealth-Sched | Malignancy | | | | | uled | | | | +--------+ + + + + | 10/23/ | Pharmacy | Pharmacy Services | | | | 2019 | Visit | | | | +--------+ + + + + | 10/23/ | Documentati | Hematology | Christy Mccauley MD | | | 2019 | on | Malignancy | | | +--------+ + + + + | 10/19/ | Pharmacy | Pharmacy Services | | | | 2019 | Visit | | | | +--------+ + + + + | 10/16/ | Telephone | Hematology | Christy Mccauley MD | | | 2019 | | Malignancy | | | +--------+ + + + + | 10/09/ | Pharmacy | Pharmacy Services | | | | 2020 | Visit | | | | +--------+ + + + + | 10/08/ | Video/TeleH | Hematology | Chritsy Mccauley MD | | | 2019 | ealth-Sched | Malignancy | | | | | uled | | | | +--------+ + + + + | 10/07/ | Pharmacy | Pharmacy Services | | | | 2019 | Visit | | | | +--------+ + + + + | 10/06/ | Documentati | Hematology | Christy Mccauley MD | | | 2019 | on | Malignancy | | | +--------+ + + + + from Last 3 Months Social History + +-------+ +--------+------+ | Tobacco [...] | | | + + + + Last Filed Vital Signs + + + + + | Vital Sign | Reading | Time Taken | Comments | + + + + + | Blood Pressure | 144/68 | 12/17/2019 2:17 PM | | | | | PDT | | + + + + + | Pulse | 63 | 12/17/2019 2:17 PM | | | | | PDT | | + + + + + | Temperature | 36.8 C (98.3 F) | 12/17/2019 2:17 PM | | | | | PDT | | + + + + + | Respiratory Rate | 16 | 12/17/2019 2:17 PM | | | | | PDT | | + + + + + | Oxygen Saturation | 100% | 12/17/2019 2:17 PM | | | | | PDT | | + + + + + | Inhaled Oxygen | - | - | | | Concentration | | | | + + + + + | Weight | 97.1 kg (214 lb) | 12/17/2019 10:53 AM | | | | | PDT | | + + + + + | Height | 167.6 cm (5' 6") | 12/04/2019 1:11 PM | | | | | PDT | | + + + + + | Body Mass Index | 34.54 | 12/04/2019 1:11 PM | | | | | PDT | | + + + + + Plan of Treatment +--------+ + + + [...] 01/14/ | Office | Hematology | Christy Mccauley MD | | | 2019 | Visit | Malignancy | [address] | | | | | | [place], | | | | | | [place] [address] | | | | | | [phone] | | | | | | | | +--------+ + + + + | 01/14/ | Appointment | Hematology & | Onc, [address] | | | 2019 | | Oncology | [place] | | | | | | [place] [address] | | +--------+ + + + + + + + + + | Health Maintenance | Due Date | Last Done | Comments | + + + + + | Pneumococcal | | | | | vaccination (1 of 2 | 5 | | | | - PCV13) | | | | + + + + + | Influenza (Flu) | | 02/17/2019, 02/17/2019, | | | vaccination (#1) | 0 | 02/17/2019, Additional history | | | | | exists | | + + + + + Procedures + +--------+ + + + | Procedure Name | Priori | Date/Time | Associated Diagnosis | Comments | | | ty | | | | + +--------+ + + + | HB-LAB | Routin | 12/17/2019 | Pancytopenia (HCC) | Results for this | | CROSSMATCH,ELECTRONI | e | 11:42 AM | | procedure are in the | | C | | PDT | | results section. | + +--------+ + + + | HB-LAB | Routin | 12/17/2019 | Pancytopenia (HCC) | Results for this | | CROSSMATCH,ELECTRONI | e | 10:45 AM | | procedure are in the | | C | | PDT | | results section. | + +--------+ + + + | ADMINISTER | Routin | 12/17/2019 | | | | CHEMOTHERAPY PER | e | 9:13 AM | | | | TREATMENT PARAMETERS | | PDT | | | + [...] + | ANTIBODY SCREEN | Urgent | 12/17/2019 | Pancytopenia (HCC) | Results for this | | | | 7:56 AM | | procedure are in the | | | | PDT | | results section. | + +--------+ + + + | ABO & RH TYPE | Urgent | 12/17/2019 | Pancytopenia (HCC) | Results for this | | | | 7:56 AM | | procedure are in the | | | | PDT | | results section. | + +--------+ + + + | TYPE AND SCREEN | Urgent | 12/17/2019 | Pancytopenia (HCC) | Results for this | | | | 7:56 AM | | procedure are in the | | | | PDT | | results section. | + +--------+ + + + | [facility] - BILIRUBIN, | Routin | 12/17/2019 | Myelofibrosis | Results for this | | DIRECT | e | 7:56 AM | (HCC) | procedure are in the | | | | PDT | | results section. | + +--------+ + + + | URIC ACID, PLASMA | Routin | 12/17/2019 | Myelofibrosis | [...] TYPE | Routin | 12/09/2019 | Pancytopenia ([facility]) | Results for this | | | e | 8:19 AM | | procedure are in the | | | | PDT | | results section. | + +--------+ + + + | TYPE AND SCREEN | Routin | 12/09/2019 | Pancytopenia ([facility]) | Results for this | | | e | 8:19 AM | | procedure are in the | | | | PDT | | results section. | + +--------+ + + + | RBC MORPHOLOGY | Routin | 12/09/2019 | Pancytopenia ([facility]) | Results for this | | | [...] | + +--------+ + + + | MRI ABDOMEN WO | Routin | 12/07/2019 | MF (myelofibrosis) | Results for this | | CONTRAST | e | 12:11 PM | (HCC) | procedure are in [...] + | RBC MORPHOLOGY | Routin | 12/04/2019 | MF (myelofibrosis) | | | | e | 1:42 PM | ([facility]) | | | | | PDT | | | + +--------+ + + + | MANUAL DIFFERENTIAL | Routin | 12/04/2019 | MF (myelofibrosis) | Results for this | | | e | 1:42 PM | (HCC) | procedure are in the | | | | PDT | | results section. | + +--------+ + + + | CBC AND AUTO DIFF | Routin | 12/04/2019 | MF (myelofibrosis) | Results for this | | | e | 1:42 PM | (HCC) | procedure are in the | | | | PDT | | results section. | + +--------+ + + + | INR | Routin | 12/04/2019 | Adverse effect of | Results for this | | | e | 1:42 PM | chemotherapy, | procedure are in the | | | | PDT | initial encounter | results section. | | | | | MF (myelofibrosis) | | | | | | (HCC) | | + +--------+ + + + | APTT (ACT. PART. | Routin | 12/04/2019 | Adverse effect of | Results for this | | THROMBO TIME) | e | 1:42 PM | chemotherapy, | procedure are in the | | | | PDT | initial encounter | results section. | | | | | MF (myelofibrosis) | | | | | | (HCC) | | + +--------+ + + + | [facility] - MAGNESIUM, | Routin | 12/04/2019 | Adverse effect of | Results for this | | PLASMA | e | 1:42 PM | chemotherapy, | procedure are in the | | | | PDT | initial encounter | results section. | | | | | MF (myelofibrosis) | | | | | | (HCC) | | + +--------+ + + + | [facility] - BILIRUBIN, | Routin | 12/04/2019 | MF (myelofibrosis) | Results for this | | DIRECT | e | 1:42 PM | (HCC) | procedure are in the | | | | PDT | | results section. | + +--------+ + + + | [facility] - LDH TOTAL, | Routin | 12/04/2019 | MF (myelofibrosis) | Results for this | | PLASMA | e | 1:42 PM | (HCC) | procedure are in the | | | | PDT | | results section. | + +--------+ + + + | [facility] - PHOSPHORUS, | Routin | 12/04/2019 | MF (myelofibrosis) | Results for this | | PLASMA | e | 1:42 PM | (HCC) | procedure are in the | | | | PDT | | results section. | + +--------+ + + + | URIC ACID, PLASMA | Routin | 12/04/2019 | MF (myelofibrosis) | Results for this | | | e | 1:42 PM | (HCC) | procedure are in the | | | | PDT | | results section. | + +--------+ + + + | LIPID SET (TRIG, T | Routin | 12/04/2019 | On antineoplastic | Results for this | | CHOL, HDL, CALC LDL) | e | 1:42 PM | chemotherapy | procedure are in the | | | | PDT | Adverse effect of | results section. | | | | | chemotherapy, | | | | | | initial encounter | | | | | | MF (myelofibrosis) | | | | | | (HCC) | | + +--------+ + + + | [facility] - COMPLETE | Routin | 12/04/2019 | MF (myelofibrosis) | Results for this | | METABOLIC SET | e | 1:42 PM | (HCC) | procedure are in the | | | | PDT | | results section. | + +--------+ + + + | [facility] CBC W | Routin | 12/04/2019 | MF (myelofibrosis) | Results for this | | DIFFERENTIAL | e | 1:42 PM | ([facility]) | procedure are in the | | | | PDT | | results section. | + +--------+ + + + | RBC MORPHOLOGY | Routin | 11/10/2019 | MF (myelofibrosis) | Results for this | | | e | 11:58 AM | ([facility]) | procedure are in the | | | | PDT | | results section. | + +--------+ + + + | MANUAL DIFFERENTIAL | Routin | 11/10/2019 | MF (myelofibrosis) | Results for this | | | e | 11:58 AM | ([facility]) | procedure are in the | | | | PDT | | results section. | + +--------+ + + + | CBC AND AUTO DIFF | Routin | 11/10/2019 | MF (myelofibrosis) | Results for this | | | e | 11:58 AM | ([facility]) | procedure are in the | | | | PDT | | results section. | + +--------+ + + + | LAWRENCE JACKSON BM | Routin | 11/10/2019 | MF (myelofibrosis) | Results for this | | RECIPIENT PANEL, | e | 11:58 AM | (HCC) | procedure are in the | | DRAW & HOLD ONLY | | PDT | | results section. | + +--------+ + + + | [facility] CBC W | Routin | 11/10/2019 | MF (myelofibrosis) | Results for this | | DIFFERENTIAL | e | 11:58 AM | (HCC) | procedure are in the | | | | PDT | | results section. | + +--------+ + + + | [facility] - COMPLETE | Routin | 11/10/2019 | MF (myelofibrosis) | Results for this | | METABOLIC SET | e | 11:58 AM | (HCC) | procedure are in the | | | | PDT | | results section. | + +--------+ + + + from Last 3 Months Results PRODUCT - RED CELLS LEUKOREDUCED (12/17/2019 11:42 AM PDT)Only the most recent of 4 results within the time period is included. + + + + + + | [...] + + + + | PRODUCT | [id number] | | [facility] | | | UNIT [...] + + + + | EXPIRATION | [id number] | | [facility] | | | DATE [...] + + + + | BLOOD | [id number] | | [facility] | | | PRODUCT [...] | + + + + + | [facility] | [address] | [place] [address] | | | SERVICES, | [address] | | | | [facility]SF[facility] MEDICINE | | | | + + + + + [facility] - MAGNESIUM, PLASMA (12/17/2019 7:56 AM PDT)Only the most recent of 3 results within t he time period is included. + +-------+ + + + | Component | Value | Ref Range | Performed | Pathologist | | | | | At | Signature | + +-------+ + + + | MAGNESIUM,P | 2.0 | 1.6 - 2.6 mg/dL | [facility] | | | [facility] | | | LABORATORY | | | | | | [place], | | | | | | [facility] | | | | | | [...] | + + + + + | [facility] | [address] | [place] [address] | | | SERVICES, [facility] | | | [facility] | | | | + + + + + [facility] - PHOSPHORUS, PLASMA (12/17/2019 7:56 AM PDT)Only the most recent of 3 results within the time period is included. + +-------+ + + + | Component [...] [facility] | [address] | [place] [address] | | | SERVICES, [facility] | [facility] | | | | + + + + + [facility] - LDH TOTAL, PLASMA (12/17/2019 7:56 AM PDT)Only the most recent of 2 results within t he time period is included. + +---------+ + + + | Component [...] | + + + + + | [facility] | [address] | [place] [address] | | | SERVICES, [facility] | | | | [facility] [...] | + + + + + | [facility] | [address] | [place] [address] | | | [facility] | | | | | HE[facility] + HEALING | | | | + + + + + RBC MORPHOLOGY (12/17/2019 7:56 AM PDT)Only the most recent of 4 results within the time shila zuleta is included. + + | Specimen | + + | Blood - Blood | | (substance) | + + + + + + + | Performing | Address | City/State/Zipcode | Phone Number | | Organization | | | | + + + + + | [facility] | [address] | [place] [address] | | | SERVICES, [facility] | | | | [facility] | | | | + + + + + MANUAL DIFFERENTIAL (12/17/2019 7:56 AM PDT)Only the most recent of 4 results within the period is included. + + + + + + | [...] LABORATORY | [address] | [place] [address] | | | SERVICES, [facility] | | | | [facility] + [facility] | | | | + + + + + [facility] - COMPLETE METABOLIC SET (12/17/2019 7:56 AM PDT)Only the most recent of 4 results wit txn the time period is included. + +---------+ + + + | Component [...] | | | LABORATORY | | | [facility] | | | SERVICES, | | | [...] MDRD equation recommended by the National | [facility] | | Kidney Disease Education Program. Estimated [...] | + + + + + | [facility] | [address] | [place] [address] | | | SERVICES, [facility] | | | | [facility] + [facility] | | | | + + + + + [facility] - BILIRUBIN, DIRECT (12/17/2019 7:56 AM PDT)Only the most recent of 2 results within t he time period is included. + +---------+ + + + | Component [...] + +---------+ + + + | [facility] | No Hemo | | [facility] [...] | + + + + + | [facility] | [address] | [place] [address] | | | SERVICES, [facility] [facility] | | | | | HEALTH [...] [facility] | [address] | [place] [address] | | | [facility], [facility] | | | | | HEALTH [...] | | | CULTURE | | | [facility], | | | | | | CENTER [...] | | | LABORATORY | | | SERVICES, | | | CENTER FOR | | | HEALTH + | | | HEALING | + + + + + + + + | Performing | Address | City/State/Zipcode | Phone Number | | Organization | | | | + + + + + | [facility] | [address] | [place] [address] | | | SERVICES, [place] [facility] | | | | | HEALTH + HEALING | | | | + + + + + ANTIBODY SCREEN (12/17/2019 7:56 AM PDT)Only the most recent of 2 results within the time period is included. + + + + + + | [...] + + | [facility] | [address] | [place] [address] | | | SERVICES, | [address] [...] | + + + + + | [facility] | [address] | [place] [address] | | | SERVICES, | [address] | | | | TRANSFUSION MEDICINE | | | | + + + + + ABO & RH TYPE (12/17/2019 7:56 AM PDT)Only the most recent of 2 results within the time geoff almaraz is included. + + + + + + | [...] + + | [facility] | [address] | [place] [address] | | | SERVICES, | [address] | | | | TRANSFUSION MEDICINE | | | | + + + + + LIPID SET (TRIG, T CHOL, HDL, CALC LDL) (12/17/2019 7:56 AM PDT)Only the most recent of 2 results within the time period is included. + +---------+ + + + | Component [...] | + + + + + | [facility] | [address] | [place] [address] | | | ANY GUZMAN | [address] | | | + + + + + HEMOGLOBIN A1C, BLOOD (12/17/2019 7:56 AM PDT) + + + + + + | Component | Value | Ref Range | Performed | Pathologist | | | | | At | Signature | + + + + + + | HEMOGLOBIN | 7.0 (H)Comment: Hgb A1C | <5.7 % | [facility] | | | A1C | Interpretive | [...] | [facility] | | considered for monitoring middle or intermediate school principal glycemic control in patients with: | LABORATORY [...] | + + + + + | [facility] | [address] | [place] [address] | | | SERVICES, SPECIAL | [address] | | | | IMM + COAG | | | | + + + + + URIC ACID, PLASMA (12/17/2019 7:56 AM PDT)Only the most recent of 2 results within the is included. + +-------+ + + + | Component | Value | Ref Range | Performed | Pathologist | | | | | At | Signature | + +-------+ + + + | URIC ACID, | 5.8 | 2.5 - 6.2 mg/dL | [facility] [...] [facility] | [address] | [place] [address] | | | [facility] FOR | | | | | [...] | | | | | been | SERVICES, | | | | | established | [...] 5-6 weeks | | | 850 - 76349 6-7 weeks | | | 4000 - 204594 7-12 weeks | | | 56010 - 799974 12-16 weeks | | | 66717 - 332212 16-29 | | | weeks 1400 - 42556 | | | 29-41 weeks 940 - 31669 | | | This test has not been approved for use as a tumor marker in | | | males or females. | | + + + + + + + + | Performing | Address | City/State/Zipcode | Phone Number | | Organization | | | | + + + + + | [facility] | [address] | [place] [address] | | | SERVICES, CORE | [address] | | | + + + + + TRANSTHORACIC ECHOCARDIOGRAM, ADULT (12/09/2019 1:47 PM PDT) [...] Performed At | + -+ + | [facility] | [facility] | | [facility] Adult Echocardiography Laboratory [address] CARDIOLOGY | | [address] [place], [place] [address] Ph: | | | Pt Name: LANETTE PICKETT | | | Study Date/Time 12/09/2019 / 1:47:19 PMMRN: [id number] | | | Most recent prior: 08/06/2019Acc #: [id number] | | | No. previous echos: 1DOB: 1950 69 years Heart Rate: | | | 59 bpmHeight: 65.9 in Blood Pressure: | | | 102/65 mm/HgWeight: 212.0 lb Gender: | | | FBSA: 2.05 m | | | Order ID: [id number] Study | | | [facility] Nadia HENRIQUEZ, [facility] CENTERReferring Provider: | | | CHRISTY M BORATEModalities Performed: 2D, Color flow, Spectral Doppler, | | | Strain and For the precise quantification of LV volumes and ejection | | | fraction, online 3-D reconstruction was clinically indicated and | | | performed under the concurrent supervision of the interpreting | | | decal applier.Study Quality: Fair.Exam Indication: Research; [place] | | | [id number]: Myelofibrosis Patient history has been obtained from [...] Report | | | electronically signed by: [id number] Eric Lin MD, PhD (12/09/2019, | | [...] | | | |Report electronically signed by: [id number] Eric Lin MD, PhD (12/09/2019, 2:48:53 | | | PM) | | | | | | | | | | | | Final | | + -+ + + + | Procedure Note | + + | Interface, Cardiology Results - 12/09/2019 2:48 PM [facility] | | [facility] Echocardi[facility] Laboratory [address] [place] [address] | | [place], [place] [address] Pt Name: LANETTE ALARCON | | [place] Study Date/Time 12/09/2019 / 1:47:19 PMMRN: [id number] Most | | recent prior: 08/06/2019Acc #: [id number] No. previous echos: 1DOB: | | 1950 69 years Heart Rate: 59 bpmHeight: 65.9 in Blood | | Pressure: 102/65 mm/HgWeight: 212.0 lb Gender: FBSA: | | 2.05 m | | Order ID: [id number] [facility] September | | Lázaro HENRIQUEZ, RDCSReferring Provider: CHRISTY M BORATEModalities Performed: 2D, Color flow, | | Spectral Doppler, Strain and For the precise quantification of LV volumes and ejection | | fraction, online 3-D reconstruction was clinically indicated and performed under the | | concurrent supervision of the interpreting decal applier.Study Quality: Fair.Exam | | Indication: Research; [place] [id number]: Myelofibrosis Patient history has been | | obtained from the [facility] Tran[facility]horacic Echocardiographic | | Report+ + | [...] and indexed values Report electronically signed by: [id number] Eric | | Riley WORTHY, PhD (12/09/2019, [...] | | | |Report electronically signed by: [id number] Eric Lin MD, PhD (12/09/2019, 2:48:53 | | PM) | | | | | | | | Final | + + + + + + + | Performing | Address | City/State/Zipcode | Phone Number | | Organization | | | | + + + + + | [facility] | [address] | [place], [place] | | | CARDIOLOGY | [address] | [address] | | + + + + + CULTURE, BLOOD BACTI & YEAST ABIGAIL (12/09/2019 10:27 AM PDT)Only the most recent of 2 result s within the time period is included. + + + + + + | [...] | + + + + + | [facility] | [address] | [place] [address] | | | SERVICES, CORE | [address] | | | + + + + + CBC AND AUTO DIFF (12/09/2019 8:13 AM PDT)Only the most recent of 3 results within the is included. + + + + + + | [...] [facility] | [address] | [place] [address] | | | [facility], [facility] | | | | | HEALTH [...] Note | + + | Service Account, [email or web address] In Interface - 12/08/2019 8:49 AM PDT [...] | Preliminary: Shahla Flores MD Dictation initiated: Shahal Flores MD | | 12/08/2019 8:30 AM [...] | | | + +---------+ + + 12 LEAD ECG (12/04/2019 2:45 PM PDT) [...] + + + + + + | [facility] | 451 | ms | [facility] [...] + + + + + | [facility] | [address] | [place], [place] | | | CARDIOLOGY | [address] | [address] | | + + + + + [...] mech. valves (2.5 - 3.5) INR | ANY GUZMAN | + + + + + + + + | Performing | Address | City/State/Zipcode | Phone Number | | Organization | | | | + + + + + | [facility] | [address] | [place] [address] | | | ANY GUZMAN | [address] | | | + [...] | + + + + + | [facility] | [address] | [place] [address] | | | ANY GUZMAN | [address] | | | + + + + + KASHI HLA BM RECIPIENT PANEL, DRAW & HOLD ONLY (11/10/2019 11:58 AM PDT) + + + + + + | Component | Value | Ref Range | Performed | Pathologist | | | | | At | Signature | + + + + + + | LABEL ONLY | Please see lab report | | [facility] | | | - LIT | for result. | | LABORATORY | | | | | | SERVICES, | | | | | | CORE | | + + + + + + + + | Specimen | + + | Swab - Cheek | | structure (body | | structure) | + + + + + + + | Performing | Address | City/State/Zipcode | Phone Number | | Organization | | | | + + + + + | [facility] | [address] | [place] [address] | | | SERVICES, CORE | [address] | | | + + + + + from Last 3 Months Insurance + +--------+ +--------+ + +--------+ | Payer | Benefi | Subscriber | Effect | Phone | Address | Type | | | t Plan | ID | agus | | | | | | / | | Dates | | | | | | Group | | | | | | + +--------+ +--------+ + +--------+ | MEDICARE | MEDICA | xxxxxxxxxxx | | [phone] | [address] | [address] | | | RE A & | | [address] | [address] | [phone] | [address] | | | B | | esent | | [place], [place] | | | | | | | | [address] | | + +--------+ +--------+ + +--------+ | [employer] [place] | MUTUAL | [id number] | | [phone] | [phone] | Indemn | | MEDICARE SUPPL | OF | | 015-Pr | 0 | [employer] | ity | | | [place] | | esent | | [address] | | | | MEDICA | | | | [place], [place] | | | | RE | | | | [phone] | | | | SUPPL | | | | | | + +--------+ +--------+ + +--------+ + +--------+ +--------+ + + | Guarantor Name | Accoun | Relation to | Date | Phone | Billing Address | | | t Type | Patient | of | | | | | | | | | | + +--------+ +--------+ + + | [address] | Person | Self | [birth year] | [address] | | | al/Fam | | 1950 | [phone] | [place] [address] | | | rachid | | | 7 (Home) | | + +--------+ +--------+ + + Advance Directives + + + + + | Code Status | Date | Date | Comments | | | Activated | Inactivated | | + + + + + | Full Code | 08/05/2019 | 08/09/2019 | | | | 10:25 PM | 12:24 AM | | + + + + +
--- OUTSIDE RECORDS SUMMARY | ~2019-12-27 | XMS | Encounter Summary ---
Demographics + + + | Address | [address] | | | [place] [address] | + + + | Home Phone | | + + + | Preferred Language | Unknown | + + + | Marital Status | | + + + | Latter-Day Affiliation | LUT | + + + | Race | White | + + + | Ethnic Group | Not or | + + + Author + + + | Author | [facility] | + + + | Organization | [facility] | + + + | [...] Team Providers + +------+ + | Care Marketing Admin Name | Role | Phone | + [...] Emre | summary | | | | [facility] [address] | [address] | | | | | [facility] for | [place], [place] | | | | | Health and Healing, | [address] | | | | | [facility] 2 | [phone] | | | | | [place], [place] | | | | | | [address] | | | | | | [phone] | | | +--------+ + + + [...] | | | | | | [place] [address] | | | | | | [phone] | | | | | | | | +--------+ + + + + | 01/14/ | Appointment | Hematology & | Onc, Gen [address] | | | 2019 | | Oncology | [place] | | | | | | [place] [address] | | +--------+ + + + + documented as of this encounter Visit Diagnoses Not on filedocumented in this encounter"
--- OUTSIDE RECORDS SUMMARY | ~2019-12-27 | XMS | Encounter Summary ---
Demographics + + + | Address | [address] | | | [place] [address] | + + + | Home Phone | | + + + | Preferred Language | Unknown | + + + | Marital Status | | + + + | Mu-Ism Affiliation | LUT | + + + | Race | White | + + + | Ethnic Group | Not or | + + + Author + + + | Author | [facility] | + + + | Organization | [facility] | + + + | Address | Unknown | + + + | Phone | Unavailable | + + + Support + + + + + | Name | Relationship | Address | Phone | + + + + + | Sky Pickett | ECON | Unknown | | + + + + + | Cherelle Silva | ECON | [place], | | + + + + + Care Team Providers + +------+ + | Care Instructional Interventionist Name | Role | Phone | + +------+ + | Oz Rodriguez MD | PCP | | + +------+ + Encounter Details +--------+ + + + + | Date | Type | Department | Care Team | Description | +--------+ + + + + | 08/07/ | Pharmacy | Outpatient Retail | | | | 2019 | Visit | [facility] | | | | | | [address] | | | | | | [place], [place] | | | | | | [address] | | | | | | [phone] | | | +--------+ + + + [...] | | | | | [address] [place], | | | | | | [place] [address] | | | | | | [phone] | | | | | | | | +--------+ + + + + | 01/14/ | Appointment | Hematology & | Onc, Gen [address] | | | 2019 | | Oncology | [place], | | | | | | [place] [address] | | +--------+ + + + + documented as of this encounter Visit Diagnoses Not on filedocumented in this encounter"
--- OUTSIDE RECORDS SUMMARY | ~2019-12-27 | XMS | Encounter Summary ---
Demographics + + + | Address | [address] | | | [place] [address] | + + + | Home Phone | | + + + | Preferred Language | Unknown | + + + | Marital Status | | + + + | Presybeterian Affiliation | LUT | + + + | Race | White | + + + | Ethnic Group | Not or | + + + Author + + + | Author | [facility] | + + + | Organization | [facility] | + + + | [...] Team Providers + +------+ + | Care Supervisor Roving Name | Role | Phone | + +------+ + | Oz Rodriguez MD | PCP | | + +------+ + Encounter Details +--------+ + + + + | Date | Type | Department | Care Team | Description | +--------+ + + + + | 08/25/ | Pharmacy | Pharmacy @ [facility] | | | | 2020 | Visit | [address] | | | | | | [address] Mailcode: | | | | | | [facility] | | | | | | and [place], | | | | | | [address] | | | | | | [place], [place] | | | | | | [address] | | | +--------+ + + + [...] | | | | | [address] [place], | | | | | | [place] [address] | | | | | | [phone] | | | | | | | | +--------+ + + + + | 01/14/ | Appointment | Hematology & | Onc, Gen [address] | | | 2020 | | Oncology | [address] [place], | | | | | | [place] [address] | | +--------+ + + + + documented as of this encounter Visit Diagnoses Not on filedocumented in this encounter"
--- OUTSIDE RECORDS SUMMARY | ~2019-12-27 | XMS | Encounter Summary ---
Demographics + + + | Address | [address] | | | [place] [address] | + + + | Home Phone [...] Team Providers + +------+ + | Care Paving Contractor Name | Role | Phone | + +------+ + | Margarita Patterson | PCP | | + +------+ + Encounter Details +--------+ + + + + | Date | Type | Department | Care Team | Description | +--------+ + + + + | 08/08/ | Telephone | [facility] | Zoraida | | | 2019 | | Clinics at | MD [address] | | | | | [facility] [address] | | | | | [facility] for | [place], [place] | | | | | Health and Healing, | [address] | | | | | [facility] 2 | [phone] | | | | | [place], [place] | | | | | | [address] | | | | | | [phone] | | | +--------+ + + + [...] | | | | | | [place] [address] | | | | | | [phone] | | | | | | | | +--------+ + + + + | 01/14/ | Appointment | Hematology & | Onc, Gen [address] | | | 2019 | | Oncology | [place] | | | | | | [place] [address] | | +--------+ + + + + documented as of this encounter Visit Diagnoses Not on filedocumented in this encounter"
--- OUTSIDE RECORDS SUMMARY | ~2019-12-27 | XMS | Encounter Summary ---
Demographics + + + | Address | [address] | | | [place] [address] | + + + | Home Phone | | + + + | Preferred Language | Unknown | + + + | Marital Status | | + + + | Scientologist Affiliation | LUT | + + + | Race | White | + + + | Ethnic Group | Not or | + + + Author + + + | Author | [facility] | + + + | Organization | [facility] | + + + | Address [...] Team Providers + +------+ + | Care Wool Hat Flanger Name | Role | Phone | + +------+ + | Oz Rodriguez MD | PCP | | + +------+ + Encounter Details +--------+ + + + + | Date | Type | Department | Care Team | Description | +--------+ + + + + | 11/25/ | Pharmacy | [facility] | | | | 2020 | Visit | [address] | | | | | | [address] | | | | | | [place] [address] | | | | | | [phone] | | | +--------+ + + + [...] | | | | | | [place] [address] | | | | | | [phone] | | | | | | | | +--------+ + + + + | 01/14/ | Appointment | Hematology & | Onc, Gen [address] | | | 2019 | | Oncology | [place] | | | | | | [place] [address] | | +--------+ + + + + documented as of this encounter Visit Diagnoses Not on filedocumented in this encounter"
--- OUTSIDE RECORDS SUMMARY | ~2019-12-27 | XMS | Encounter Summary ---
Demographics + + + | Address | [address] | | | [place] [address] | + + + | Home Phone | | + + + | Preferred Language | Unknown | + + + | Marital Status | | + + + | Bahai Affiliation | Unknown | + + + | Race | Unknown | + + + | Ethnic Group | Unknown | + + + Author + + + | Author | [facility] | | | and Demetriusana | + + + | Organization | [facility] | | | [...] Team Providers + +------+ + | Care Photolettering Machine Operator Name | Role | Phone | + +------+ + | No, Physician | PCP | Unavailable | + +------+ + Reason for Visit + +--------+ + | Reason | Onset | Comments | | | Date | | + +--------+ + | Neurology | 08/18/ | Cancel 11/19/19 | | Appointment | 2020 | | + +--------+ + Encounter Details +--------+ + + + + | Date | Type | Department | Care Team | Description | +--------+ + + + + | 08/18/ | Telephone | [facility] | Victor Manuel Amaya, | Neurology | | 2020 | | NEUROLOGY [address] | Appointment (Cancel | | | | [address] | [address] | 11/19/19) | | | | [place], [place] | [place] [address] | | | | | [address] | [phone] | | | | | [phone] | | | +--------+ + + + [...] on file | | + + + documented as of this encounter Miscellaneous Notes Telephone Encounter - Aliyah Hicks P - 08/19/2019 1:49 PM PDTCarol, is calling regarding Neurology Appointment (Cancel 11/19/19) and would like a call back. Additional Call Details: Patient called to cancel the appointment's on 11/19/19. Will call back later to reschedule. If this is a symptom based call, was patient offered triage? Not Applicable If this is a symptom based call and you were unable to immediately transfer the call to a shila gar system operator was caller made aware that if at any time she feels it is an emergency they sh ould call 911 or go to the nearest emergency room? not applicable documented in this encounter Plan of Treatment Not on filedocumented as of this encounter Visit Diagnoses Not on filedocumented in this encounter"
--- OUTSIDE RECORDS SUMMARY | ~2019-12-27 | XMS | Encounter Summary ---
Demographics + + + | Address | [address] | | | [place] [address] | + + + | Home Phone [...] + + + | Author | [facility] | + + + | Organization | [facility] | + + + [...] Team Providers + +------+ + | Care Retail Department Supervisor Name | Role | Phone | + +------+ + | Margarita Patterson | PCP | | + +------+ + Encounter Details +--------+ + + + + | Date | Type | Department | Care Team | Description | +--------+ + + + + | 08/10/ | Support Team Assoc | [facility] | Daysi Mccauley MD | MDS (myelodysplastic | | 2020 | | Clinics at S | [address] [facility] | syndrome) (HCC) | | | | [facility] [address] [place], | (Primary Dx) | | | | [facility] | [place] [address] | | | | | Health and Healing, | [phone] | | | | | [address] | | | | | | [place], [place] | | | | | | [address] | | | | | | [phone] | | | +--------+ + + + [...] | | | | | | [place] [address] | | | | | | [phone] | | | | | | | | +--------+ + + + + | 01/14/ | Appointment | Hematology & | Onc, Gen [address] | | | 2019 | | Oncology | [place] | | | | | | [place] [address] | | +--------+ + + + + documented as of this encounter Results CYTOGENETICS HEM/ONC BLOOD CHROMOSOME ANALYSIS (W/FISH) (08/11/2019 [...] | | | | | evidence for DEK/[id number] | | | | | | fusion.Results [...] clinical | | | | | | russian language professor. | | | | + + + [...] | This test was developed | | [facility] | | | | and its performance | | DIAGNOSTIC | | | | characteristics | | | | | | determined by the [facility] | | LABORATORIE | | | | [...] | | | | | (CLIA). The [facility] | | | | | | Diagnostics | | | | | | Laboratories are fully | | | | | | licensed by the state of | | | | | | [place] under CLIA and | | | | | | are accredited by the | | | | | | [employer] | | | | | | Pathologists (CAP). | | | | | | Woods Overseer: | | | | | | Antony Moore, | | | | | | M.D., | | | | | | Ph.D.Electronically | | | | | | reviewed and signed | | | | | | by:Rozina White, PhD, | | | | | | FACMGClinical | | | | | | Cytogeneticist08/19/2019 | | | | | | at 2:03 PMReviewed and | | | | | | electronically signed by | | | | | | ROZINA ELAINE, | | | | | | MDFAC08/19/2019 6:02 | | | | | | [...] + + + + | [facility] | [address] | [place] [address] | | | DIAGNOSTIC | [address] | | | | LABORATORIES | | | | + + + + + documented in this encounter Visit Diagnoses + + | Diagnosis | + + | MDS (myelodysplastic syndrome) (HCC) - Primary Myelodysplastic syndrome, unspecified | + + documented in this encounter"
--- OUTSIDE RECORDS SUMMARY | ~2019-12-27 | XMS | Encounter Summary ---
Demographics + + + | Address | [address] | | | [place] [address] | + + + | Home Phone | | + + + | Preferred Language | Unknown | + + + | Marital Status | | + + + | Yazdanism Affiliation | LUT | + + + | Race | White | + + + | Ethnic Group | Not or | + + + Author + + + | Author | [facility] | + + + | Organization | [facility] | + + + | Address | [...] Team Providers + +------+ + | Care Oil Laboratory Analyst Name | Role | Phone | + +------+ + | Oz Rodriguez MD | PCP | | + +------+ + Encounter Details +--------+ + + + + | Date | Type | Department | Care Team | Description | +--------+ + + + + | 12/15/ | Accounting Machine Servicer | [facility] | Daysi Mccauley MD | Myelofibrosis (HCC) | | 2020 | | Clinics at S | [address] | (Primary Dx); | | | | [facility] [address] | [address] [place], | Neutropenic | | | | [facility] for | [place] [address] | splenomegaly ; Mild | | | | Health and Healing, | [phone] | protein-calorie | | | | [address] | | malnutrition (HCC) ; | | | | [place], [place] | | Other abnormal | | | | [address] | | tumor markers | | | | [phone] | | | +--------+ + + + [...] | | | | | | [place] [address] | | | | | | [phone] | | | | | | | | +--------+ + + + + | 01/14/ | Appointment | Hematology & | Onc, Gen [address] | | | 2019 | | Oncology | [place], | | | | | | [place] [address] | | +--------+ + + + + documented as of this encounter Results LIPID SET (TRIG, T CHOL, HDL, CALC [...] | + + + + + | [facility] | [address] | [place] [address] | | | SERVICES, CORE | [address] [...] 5-6 weeks | | | 850 - 59818 6-7 weeks | | | 4000 - 596488 7-12 weeks | | | [address]1515 - 398406 12-16 weeks | | | 61957 - 735467 16-29 | | | weeks 1400 - 48946 | | | 29-41 weeks 940 - [address]4713 | | | This test has not been approved for use as a tumor marker in | | | males or females. | | + + + + + + + + | Performing | Address | City/State/Zipcode | Phone Number | | Organization | | | | + + + + + | [facility] | [address] | [place] [address] | | | SERVICES, CORE | [address] [...] | + + + + + | [facility] | [address] | [place] [address] | | | SERVICES, [place] FOR | | | | | HEALTH [...] [facility] | [address] | [place] [address] | | | [facility] | | | | | HEALTH + HEALING | | | | + + + + + documented in this encounter Visit Diagnoses + + | Diagnosis | + + | Myelofibrosis (HCC) - Primary Myelofibrosis | + + | Neutropenic splenomegaly Neutropenic splenomegaly | + + | Mild protein-calorie malnutrition (HCC) Malnutrition of mild degree | + + | Other abnormal tumor markers Other abnormal tumor markers | + + documented in this encounter"
--- OUTSIDE RECORDS SUMMARY | ~2019-12-27 | XMS | Encounter Summary ---
Demographics + + + | Address | [address] | | | [place] [address] | + + + | Home Phone [...] Team Providers + +------+ + | Care Folder Hand Name | Role | Phone | + [...] + + | 12/03/ | Documentati | [facility] | Daysi Mccauley MD | Research | | 2020 | on | Clinics at S | [address] [facility] | Documentation | | | | [address] [place], | | | | | [facility] | [place] [address] | | | | | Health and Healing, | [phone] | | | | | [address] | | | | | | [place], [place] | | | | | | [address] | | | | | | [phone] | | | +--------+ + + + [...] | | | | | | [place] [address] | | | | | | [phone] | | | | | | | | +--------+ + + + + | 01/14/ | Appointment | Hematology & | Onc, Gen [address] | | | 2019 | | Oncology | [place], | | | | | | [place] [address] | | +--------+ + + + + documented as of this encounter Visit Diagnoses Not on filedocumented in this encounter"
--- OUTSIDE RECORDS SUMMARY | ~2019-12-27 | XMS | Encounter Summary ---
Demographics + + + | Address | [address] | | | [place] [address] | + + + | Home Phone [...] Team Providers + +------+ + | Care Temp Recruiter Name | Role | Phone | + +------+ + | Oz Rodriguez MD | PCP | | + +------+ + Encounter Details +--------+ + + + + | Date | Type | Department | Care Team | Description | +--------+ + + + + | 12/14/ | Pharmacy | Outpatient Retail | | | | 2020 | Visit | Clinic Pharmacy | | | | | | [address] | | | | | | [address] [place], [place] | | | | | | [address] | | | | | | [phone] | | | +--------+ + + + [...] | | | | | [address] [facility] | | | | | | [place] [address] | | | | | | [phone] | | | | | | | | +--------+ + + + + | 01/14/ | Appointment | Hematology & | Onc, Gen [address] | | | 2019 | | Oncology | [place] | | | | | | [place] [address] | | +--------+ + + + + documented as of this encounter Visit Diagnoses Not on filedocumented in this encounter"
--- OUTSIDE RECORDS SUMMARY | ~2019-12-27 | XMS | Encounter Summary ---
Demographics + + + | Address | [address] | | | [place] [address] | + + + | Home Phone | | + + + | Preferred Language | Unknown | + + + | Marital Status | | + + + | Alevism Affiliation | LUT | + + + | Race | White | + + + | Ethnic Group | Not or | + + + Author + + + | Author | [facility] | + + + | Organization | [facility] | + + + | [...] Team Providers + +------+ + | Care Nerve Specialist Name | Role | Phone | + +------+ + | Margarita Patterson | PCP | | + +------+ + Reason for Visit + + + | Reason | Comments | + + + | Medication | | | management | | + + + Encounter Details +--------+ + + + + | Date | Type | Department | Care Team | Description | +--------+ + + + + | 09/01/ | Telephone | [facility] | Daysi Mccauley MD | Medication | | 2020 | | Clinics at S | [address] [facility] | management | | | | [address] [place], | | | | | [facility] | [place] [address] | | | | | Health and Healing, | [phone] | | | | | [address] | | | | | | [place], [place] | | | | | | [address] | | | | | | [phone] | | | +--------+ + + + [...] | | | | | | [place] [address] | | | | | | [phone] | | | | | | | | +--------+ + + + + | 01/14/ | Appointment | Hematology & | Onc, Gen [address] | | | 2019 | | Oncology | [place], | | | | | | [place] [address] | | +--------+ + + + + documented as of this encounter Visit Diagnoses Not on filedocumented in this encounter"
--- OUTSIDE RECORDS SUMMARY | ~2019-12-27 | XMS | Encounter Summary ---
Demographics + + + | Address | [address] | | | [place] [address] | + + + | Home Phone | | + + + | Preferred Language | Unknown | + + + | Marital Status | | + + + | Adventist Affiliation | LUT | + + + [...] Team Providers + +------+ + | Care Sagger Soak Name | Role | Phone | + +------+ + | Oz Rodriguez MD | PCP | | + +------+ + Reason for Visit + + + | Reason | Comments | + + + | Follow-up visit | | + + + Encounter Details +--------+---------+ + + + | Date | Type | Department | Care Team | Description | +--------+---------+ + + + | 12/16/ | Office | [facility] | Quinton Eduardo FNP | Myelofibrosis (HCC) | | 2020 | Visit | Clinics at S | [address] [facility] | (Primary Dx); | | | | [address] [place], | Neutropenic | | | | [facility] | [place] [address] | splenomegaly ; | | | | Health and Healing, | [phone] | Pancytopenia (HCC) | | | | [address] | | | | | | [place], [place] | | | | | | [address] | | | | | | [phone] | | | +--------+---------+ + + + Social History + +-------+ [...] + + + | Blood Pressure | 143/61 | 12/17/2019 8:46 AM | | | | | PDT | | + + + + + | Pulse | 81 | 12/17/2019 8:46 AM | | | | | PDT | | + + + + + | Temperature | 36.8 C (98.3 F) | 12/17/2019 8:46 AM | | | | | PDT | | + + + + + | Respiratory Rate | 16 | 12/17/2019 8:46 AM | | | | | PDT | | + + + + + | Oxygen Saturation | 100% | 12/17/2019 8:46 AM | | | | | PDT | | + + + + + | Inhaled Oxygen | - | - | | | Concentration | | | | + + + + + | Weight | 96.3 kg (212 lb 6.4 | 12/17/2019 8:46 AM | | | | oz) | PDT | | + + + + + | Height | - | - | | + + + + + | Body Mass Index | 34.28 | 12/04/2019 1:11 PM | | | [...] + + documented as of this encounter Patient Instructions Patient Instructions Quinton Eduardo FNP - 12/17/2019 9:00 AM PDT-Return to clinic as schedu led, or sooner as needed. -Take your temperature regularly (2-3 x daily) and to call immediately for a temperature of 100.4 or greater. -Push your oral fluids to consistently drink at least 2 Liters (64 oz) of fluids a day. Call the BMT clinic ([phone]) or BMT person on-call ([phone]) for: Any temp > 100.4 Nausea/vomiting unresponsive to anti-nausea medications Significant diarrhea despite Imodium Inability to drink at least 2 liters of fluid daily You develop a rash Bleeding Medication change: -Start ruxolitinib (Jakafi)- take 5 mg by mouth twice a day. documented in this encounter Progress Notes Quinton Eduardo FNP - 12/17/2019 9:00 AM PDT 12/17/2019 Clinic: [facility] Primary provider in [facility] Clinic: Daysi Mccauley MD PCP: JOSEFA Meng ID: Myelofibrosis Follow-up Visit: Fidelia Pickett is a 69 year old female who was referr ed to our clinic for management of Myelofibrosis in the setting of pancytopenia and bone mar row abnormalities. History of Present Illness: Fidelia Pickett presented after new likely diagnosis of MF. The patient has a past medica l history that includes HTN and hypothyroidism. The patient's hematological history dates ba ck to 08/02/2019 where she was seen in the ED in [place], [place] for dyspnea. Found to be panc ytopenic including Hgb/HCT of 6.3/18.1 and platelet count at 42. She was transfused two unit s and discharged home with plan for follow-up and BMBx at [facility]. Subsequently admitted from 08/04- at [facility] d/t pancytopenia. BMBx performed on 2019. Marrow was hypercelllular (90%) with prominent fibrosis and 30% hematopoietic elements with increased reticulin fibrosis, Megakaryocytic hyperplasia/ atytpia, blasts less than 5% . 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 In local clinic on 08/18/2019, in order to discuss results of BMBx with Dr. Blood at [facility]. She had been doing well for the last few days up until when she walked i nto the office. When she came to the office she seemed fine and had her blood drawn but then suddenly became lightheaded and somewhat unresponsive but responded to being placed supine. Rapid response was called. She was noted to have normal blood pressure pulse and saturation . She was sent down to ED for further resuscitation. Given one unit pRBCs. Pt and her has an extended conversation with Dr. Blood following this BM bx rega rding patient's prognosis and need for supportive transfusions. Treatment history: 08/25-11/26/2019: Jakafi 5mg PO BID. She has some memory loss at baseline which family f elt was slightly improved since beginning treatment. Family also noticed improvement in her energy levels and chronic joint pains. D/c'ed on Jakafi in anticipation of enrolling in clin ical trial. 12/04/19: Patient consented to CTI PAC-203 "A Phase 2/3 Study of Pacritinib in Patients wit h Primary Myelofibrosis, Post Polycythemia Vera Myelofibrosis, or Post-Essential Thrombocyth emia Myelofibrosis" eIRB# [id number] Interval Hx: Fidelia Pickett is a 69 y.o. female and presents to clinic today for her son hernandeze scheduled visit. She is seen accompanied her in clinic today. Appetite is dec reased from baseline. Eating small frequent meals throughout the day. Drinking at least 2L/ day. They had their daughter, April on via phone. Reports she still has significant memory loss, feels "foggy". Review of Systems Constitutional: Positive for malaise/fatigue (fatigues easily). Negative for chills, diapho resis, fever and weight loss. HENT: Negative for headaches, congestion and sore throat. Eyes: Negative for blurred vision, double vision and pain. Respiratory: Positive for shortness of breath (ELAINE, resolves quickly with rest). Negative f or cough, hemoptysis, sputum production and wheezing. Cardiovascular: Negative for chest pain, palpitations and leg swelling. Gastrointestinal: Negative for abdominal pain, blood in stool, constipation, diarrhea, hear tburn, melena, nausea and vomiting. Genitourinary: Negative for dysuria, frequency, hematuria and urgency. Musculoskeletal: Negative for joint pain and myalgias. Skin: Positive for itching (down left side, comes and goes, chronic). Negative for rash. Neurological: Negative for dizziness, tingling and weakness. Endo/Heme/Allergies: Bruises/bleeds easily (easy bruising). Psychiatric/Behavioral: Positive for memory loss. The patient does not have insomnia (diffi culty sleeping last night due to todays visit, o/w sleeping well). All other systems reviewed and are negative. Past Medical History: Diagnosis Date Diabetes mellitus (HCC) 08/07/2019 HbA1C 7.2 HTN (hypertension) Hypothyroid Social History Tobacco Use Smoking status: Never Smoker Smokeless tobacco: Never Used Substance Use Topics Alcohol use: Yes Comment: 3 times a week Social History Social History Narrative Not on file Current Outpatient Medications Medication Sig acetaminophen 500 mg oral tablet Take 500 mg by mouth every six hours as needed for mil d pain. acyclovir 800 mg oral tablet Take 1 tablet by mouth once daily. Indications: viral infe ction prevention allopurinoL 300 mg oral tablet Take 1 tablet by mouth once daily. Indications: an incre ase in uric acid due to cancer chemotherapy cefPODOxime 200 mg oral tablet Take 1 tablet by mouth every twelve hours. celecoxib 100 mg oral capsule Take 1 capsule by mouth twice daily as needed. Administer with food. Indications: Pain DULoxetine 30 mg oral capsule,delayed release(DR/EC) Take 60 mg by mouth once daily. fluconazole 200 mg oral tablet Take 1 tablet by mouth two times daily. Indications: fun gal infection prevention hydroCHLOROthiazide 25 mg oral tablet Take 25 mg by mouth once daily. levothyroxine 25 mcg oral tablet Take 25 mcg by mouth before breakfast. losartan 100 mg oral tablet Take 100 mg by mouth once daily. ruxolitinib (JAKAFI) 5 mg oral tablet Take 1 tablet by mouth two times daily. No current facility-administered medications for this visit. No Known Allergies Vitals: 12/17/19 0846 BP: 143/61 BP Location: Right upper arm Patient Position: Sitting Pulse: 81 Resp: 16 Temp: 36.8 C (98.3 F) TempSrc: Oral SpO2: 100% Weight: 96.3 kg (212 lb 6.4 oz) PainSc: 0 - Zero Physical Exam Constitutional: She is oriented to person, place, and time and well-developed, well-nourish ed, and in no distress. HENT: Head: Normocephalic and atraumatic. Mouth/Throat: Oropharynx is clear and moist. No oropharyngeal exudate. Eyes: Pupils are equal, round, and reactive to light. Conjunctivae and EOM are normal. Righ t eye exhibits no discharge. Left eye exhibits no discharge. No scleral icterus. Neck: Neck supple. Cardiovascular: Normal rate, regular rhythm, normal heart sounds and intact distal pulses. Exam reveals no gallop and no friction rub. No murmur heard. Pulmonary/Chest: Effort normal and breath sounds normal. No respiratory distress. She has n o wheezes. She has no rales. She exhibits no tenderness. Abdominal: Soft. Bowel sounds are normal. She exhibits no distension and no mass. There is abdominal tenderness (Tenderness to palpation with spleen palpitation.). There is no rebound and no guarding. Spleen measures 5 cm LCM at the mid-clavicular line. No CVA tenderness. Musculoskeletal: Normal range of motion. General: No edema. Neurological: She is alert and oriented to person, place, and time. Skin: Skin is warm and dry. No rash noted. She is not diaphoretic. No erythema. No pallor. Psychiatric: Affect normal. Vitals reviewed. Central line is a 2L PICC catheter to UE w/o induration or inflammation. ECOG = 2. Chemistries: Last 72 Hours (or 3 results): Recent Labs 12/17/19 0756 NA 138 K 4.0 CL 100 BICARB 26 BUN 24* CR 0.89 CA 8.5* MG 2.0 PO4 4.7 AST 14 ALT 24 TBILI 0.4 AP 278* ALB 3.1* TP 7.3 Liver Tests: Last 72 hours (or 3 results) URIC ACID, PLASMA (LAB) (mg/dL) Date Value 12/04/2019 4.1 08/11/2019 3.4 08/07/2019 3.8 CBC with diff last 72 hours (or 3 results) Recent Labs 12/17/19 0756 WBC 3.01* HB 7.2* HCT 20.9* PLT 31* NEUTROPERC 39.8* LYMPHPERC 39.8 MONOPERC 2.7* BASOPERC 0.9 EOSPERC 0.0* I reviewed lab results with the patient during our visit. Assessment and recommendations 1. Intermediate-2 risk MF: On 08/26/2019, she was started on Ruxulotinib at a low dose of 5 mg PO BID to see how she responds. Per her -Fidelia felt a lot better, her joint pains & energy levels were improving. On 11/26/2019, patient discontinued Jakafi and antimicrobia ls in anticipation of enrolling in CTI PAC-203 "A Phase 2/3 Study of Pacritinib in Patients with Primary Myelofibrosis, Post Polycythemia Vera Myelofibrosis, or Post-Essential Thromboc ythemia Myelofibrosis" eIRB# [id number]. -On 12/04/2019, Ms. Fidelia Pickett consented to discussed CTI PAC-203 "A Phase 2/3 Study of Pacritinib in Patients with Primary Myelofibrosis, Post Polycythemia Vera Myelofibrosis, or Post-Essential Thrombocythemia Myelofibrosis" eIRB# [id number]. -Today 12/17/2019, she feels well overall, however had difficulty sleeping last night, due to anticipating today's clinic visit. Feels her memory is still poor. She has ongoing abdomi nal discomfort in her LUQ during spleen palpation. 2. Pancytopenia secondary to disease : Patient was randomized to either std of care arm which is Ruxulotinib 5 mg BID. She is C1D1 today, 12/17/2019. Again, based on the protocol she will see us every 8 weeks regardless of the arm she is assigned to. -CBC reviewed and reveals persistent leukopenia, with ANC low at 1010, mild persistent anem ia, and thrombocytopenia. Cytopenias due to disease. Follow CBC closely in setting of thromb ocytopenia with starting ruxolitnib. Transfuse 2 units PRBCs for Hct 20.9 to promote oxyge n carrying capacity, due to her higher parameters. Transfusion parameters: -Transfuse PRBCs for HCT </= 21.0%, transfuse 2 unit PRBC, for Hct between 21.1 and 24.0%, or f patient shows symptoms suggestive of anemia, transfuse 1 unit PRBC. -Transfuse PPH for platelet count <10,000or sooner PRN s/s bleeding. 3. ID: Afebrile, with no localizing s/s of active infection. -She developed fevers during her PRBC transfusion on 12/09/2019, due to her symptomatic ane julissa that subsided with tylenol-blood cultures from 12/09/2019 are NGTD. Pt is not neutropen ic but is on antibiotic prophylaxis as allowed by the study. Patient stopped Levaquin and az ole anti-fungal as required by study protocol. I removed levofloxacin & voriconazole from he r medication list today 12/17/2019. Denies any further fevers since that time. -The patient is reminded to take her temperature regularly (2-3 x daily) and to call immedi ately for a temperature of 100.4 or greater. Continue current prophylaxis, which includes: Cefpodoxime, acyclovir and fluconazole. 4. FEN: Appetite good, although decreased from baseline. Feels she is eating adequately, e ating small frequent meals throughout the day. Drinking at least 2L/day, per pt report. Albu min slightly low, although improved. Weight stable. Monitor. -Encourage her to push her oral fluid intake as tolerated with a goal of consistently drink ing at least 2L fluids per day. -Electrolytes are reviewed and: - there is no need for repletion at this time. Follow up: -Return to clinic per study protocol, or sooner as needed. JOSEFA Sanchez [facility] [address] [facility], [address] [place] [address] documented in this enco unter Plan of Treatment +--------+ + + + [...] | | | | | | [place] [address] | | | | | | [phone] | | | | | | | | +--------+ + + + + | 01/14/ | Appointment | Hematology & | Onc, Gen [address] | | | 2019 | | Oncology | [place], | | | | | | [place] [address] | | +--------+ + + + + [...]
--- OUTSIDE RECORDS SUMMARY | ~2019-12-27 | XMS | Encounter Summary ---
Demographics + + + | Address | [address] | | | [place] [address] | + + + | Home Phone [...] Team Providers + +------+ + | Care Lumber Estimator Name | Role | Phone | + +------+ + | Margarita Patterson | PCP | | + +------+ + Encounter Details +--------+ + + + + | Date | Type | Department | Care Team | Description | +--------+ + + + + | 12/15/ | Document-Sc | [facility] | Daysi Mccauley MD | | | 2019 | ann | Clinics at S | [address] | | | | | [address] [place], | | | | | [facility] | [place] [address] | | | | | Health and Healing, | [phone] | | | | | [address] | | | | | | [place], [place] | | | | | | [address] | | | | | | [phone] | | | +--------+ + + + [...] | | | | | [address] [place], | | | | | | [place] [address] | | | | | | [phone] | | | | | | | | +--------+ + + + + | 01/14/ | Appointment | Hematology & | Onc, Gen [address] | | | 2020 | | Oncology | [place], | | | | | | [place] [address] | | +--------+ + + + + documented as of this encounter Visit Diagnoses Not on filedocumented in this encounter"
--- OUTSIDE RECORDS SUMMARY | ~2019-12-27 | XMS | Encounter Summary ---
Demographics + + + | Address | [address] | | | [place] [address] | + + + | Home Phone | | + + + | Preferred Language | Unknown | + + + | Marital Status | | + + + | Hindu Affiliation | LUT | + + + [...] Team Providers + +------+ + | Care Buhr Dresser Name | Role | Phone | + +------+ + | Margarita Patterson | PCP | | + +------+ + Encounter Details +--------+ + + + + | Date | Type | Department | Care Team | Description | +--------+ + + + + | 08/07/ | Telephone Order Clerk | [facility] | Rosado, Sheri P, | Pancytopenia (HCC) | | 2020 | | Clinics at S | MD [address] | (Primary Dx); Acute | | | | [address] | myeloid leukemia not | | | | [facility] for | [place], [place] | having achieved | | | | Health and Healing, | [address] | remission (HCC); | | | | [address] | [phone] | Hypomagnesemia | | | | [facility] [place] | | | | | | [address] | | | | | | [phone] | | | +--------+ + + + [...] | | | | | | [place] [address] | | | | | | [phone] | | | | | | | | +--------+ + + + + | 01/14/ | Appointment | Hematology & | Onc, Gen [address] | | | 2019 | | Oncology | [place] | | | | | | [place] [address] | | +--------+ + + + + documented as of this encounter Results [facility] - [facility] TOTAL, PLASMA (08/11/2019 2:30 [...] | [facility] | [address] | [place] [address] | | | SERVICES, [facility] | | | | | HEALTH [...] + + + | [facility] | [address] | [place] [address] | | | SERVICES, [facility] | | | | | HEALTH [...] [facility] | [address] | [place] [address] | | | [facility] | | | | | HEALTH + HEALING | | | | + + + + + [facility] - COMPLETE METABOLIC SET (08/11/2019 2:30 PM [...] | | | LABORATORY | | | [place] | | | SERVICES, | | | [...] MDRD equation recommended by the National | [facility] | | Kidney Disease Education Program. [...] | + + + + + | [facility] | [address] | [place] [address] | | | SERVICES, [facility] | | | | | HEALTH [...] [facility] | [address] | [place] [address] | | | SERVICES, CORE | PARK [...] | + + + + + | [facility] | [address] | [place] [address] | | | SERVICES, CORE | [address] | | | + + + + + documented in this encounter Visit Diagnoses + + | Diagnosis | + + | Pancytopenia (HCC) - Primary Other pancytopenia | + + | Acute myeloid leukemia not having achieved remission (HCC) | + + | Hypomagnesemia Disorders of magnesium metabolism | + + documented in this encounter"
--- OUTSIDE RECORDS SUMMARY | ~2019-12-27 | XMS | Encounter Summary ---
Demographics + + + | Address | [address] | | | [place] [address] | + + + | Home Phone [...] Team Providers + +------+ + | Care Dredge Boat Engineer Name | Role | Phone | [...] Clinics at S | [address] [facility] | | | | | [address] [place], | | | | | [facility] | [place] [address] | | | | | Health and Healing, | [phone] | | | | | [address] | | | | | | [place], [place] | | | | | | [address] | | | | | | [phone] | | | +--------+ + + + [...] | | | | | | [place] [address] | | | | | | [phone] | | | | | | | | +--------+ + + + + | 01/14/ | Appointment | Hematology & | Onc, Gen [address] | | | 2019 | | Oncology | [place] | | | | | | [place] [address] | | +--------+ + + + + documented as of this encounter Visit Diagnoses Not on filedocumented in this encounter"
--- OUTSIDE RECORDS SUMMARY | ~2019-12-27 | XMS | Encounter Summary ---
Demographics + + + | Address | [address] | | | [place] [address] | + + + | Home Phone [...] Team Providers + +------+ + | Care Tag Meter Operator Name | Role | Phone | [...] | +--------+ + + + + | 09/09/ | Telephone | [facility] | Daysi Mccauley MD | Covid19 Screening | | 2020 | | Clinics at S | [address] [facility] | | | | | [address] [place], | | | | | [employer] | [place] [address] | | | | | Health and Healing, | [phone] | | | | | [facility] [address] | | | | | | [place], [place] | | | | | | [address] | | | | | | [phone] | | | +--------+ + + + [...] | | | | | | [place] [address] | | | | | | [phone] | | | | | | | | +--------+ + + + + | 01/14/ | Appointment | Hematology & | Onc, Gen [address] | | | 2019 | | Oncology | [place], | | | | | | [place] [address] | | +--------+ + + + + documented as of this encounter Visit Diagnoses Not on filedocumented in this encounter"
--- OUTSIDE RECORDS SUMMARY | ~2019-12-27 | XMS | Encounter Summary ---
Demographics + + + | Address | [address] | | | [place] [address] | + + + | Home Phone | | + + + | Preferred Language | Unknown | + + + | Marital Status | | + + + | Gnosticist Affiliation | LUT | + + + [...] Team Providers + +------+ + | Care [employer] Equipment Repairer Name | Role | Phone | + +------+ + | Margarita Patterson | PCP | | + +------+ + Reason for Visit + + + | Reason | Comments | + + + | New Patient Visit | | + + + Consultation (Routine) + +---------+ + + + + | Status | Reason | Specialty | Diagnoses / | Referred By | Referred To | | | | | Procedures | Contact | Contact | + +---------+ + + + + | New Request | Other | Hematology | Diagnoses | [place], | [facility] [facility] | | | | Malignancy | MDS | Daysi Ramires MD | [facility] [address] | | | | | (myelodyspla | [address] | [address] | | | | | stic | [facility] | [address] | | | | | syndrome) | Rd | Health and | | | | | (HCC) | [place], [place] | Healing, | | | | | Procedures | [address] | [address] | | | | | CONSULT TO | Phone: | [place], [place] | | | | | TRANSPLANT - | [phone] | [address] | | | | | BMT | Fax: | Phone: | | | | | | [phone] | [phone] | | | | | | | Fax: | | | | | | | [phone] | + +---------+ + + + + Encounter Details +--------+---------+ + + + | Date | Type | Department | Care Team | Description | +--------+---------+ + + + | 11/09/ | Office | [facility] | Sheri Rosado, | MF (myelofibrosis) | | 2020 | Visit | Clinics at S | [address] | (HCC) | | | | [place] [address] [facility] [address] | | | | | [facility] | [place], [place] | | | | | Health and Healing, | [address] | | | | | [address] | [phone] | | | | | [place], [place] | | | | | | [address] | | | | | | [phone] | | | +--------+---------+ + + + [...] + + + | Blood Pressure | 120/68 | 11/10/2019 10:06 AM | | | | | PDT | | + + + + + | Pulse | 76 | 11/10/2019 10:06 AM | | | | | PDT | | + + + + + | Temperature | 36.8 C (98.3 F) | 11/10/2019 10:06 AM | | | | | PDT | | + + + + + | Respiratory Rate | 16 | 11/10/2019 10:06 AM | | | | | PDT | | + + + + + | Oxygen Saturation | 99% | 11/10/2019 10:06 AM | | | | | PDT | | + + + + + | Inhaled Oxygen | - | - | | | Concentration | | | | + + + + + | Weight | 96.2 kg (212 lb) | 11/10/2019 10:06 AM | | | | | PDT | | + + + + + | Height | - | - | | + + + + + | Body Mass Index | 34.32 | 08/05/2019 10:34 PM | | | [...] of this encounter Patient Instructions Patient Instructions Lacey Meeks, LIA - 11/10/2019 10:30 AM PDTCarol it was a pleasure to see you today. Dr. Rosado has reviewed your chart and after talking to you she does agree with your diagno sis and the treatment you've had thus far. She also discussed with you treatment options including an allogeneic (donor) stem cell tra nsplant. 1)) For an Allogeneic (Allo) transplant we need to have a donor (either sibling or unrelate d volunteer donor). You consented for an alternative donor search trial incase that is the r oute we need to pursue 2) I encourage you to increase your physical activity, goal of ~ 30 minutes/day 3) Continue with Rhett, per Dr. Mccauley. I will discuss your future npn-transplant treatme nt plans with her. Today we will draw your blood to get your genetic information. We will ask insurance for a pproval to type your blood, and to type your siblings and then if needed search for an unrel ated donor. The Allo transplant gives you the best option for a cure but it does come with risks. There are risks for you to have life threatening complications and or infections with this proced ure. The Allo transplant is basically going to give you a new immune system--(from the dono r) Allo tranpslant is a 5 step/phases process. STEP 1) Active treatment (which is what you are doing now) to get the disease under control STEP 2) Pre-transplant evaluations to make sure your disease is under control and you are h ealthy enough to undergo the transplant. These tests include, labs (infectious disease gaurang newby), bone marrow biopsy, lung function test, heart function tests, chest x-ray, ekg, and a n education class for you and your caregiver, as well as a meeting with Dorothea Camarillo our soc ial worker to help you if you need any other assistance -non medical stuff. (we coordinate this to happen all here at [facility] over one to two days). The 2 hour education class talks about what to expect before, during and after transplant i ncluding GVHD. Do to Covid we are no longer giving these classes in person, this will be a [employer] link that will be sent out for you and your caregiver to watch. The nurse coordinator w ill follow up with you after you have watched this video. After these tests are completed, you'll meet with Dr. Rosado (about a week after the tests are completed) to review the test results and sign the consent forms. STEP 3) Transplant- you will get chemotherapy either in our clinic or you may admit to [facility] and get high dose chemotherapy for several days. Once the chemotherapy has been completed, then you get your transplant. The actual transplant is an infusion of the donor cells, s imilar to a blood or platelet transfusion. This is about a 3-4 week hospitalization while yo u recover. You will need a central line for transplant, and your nurse coordinator will arra nge for the placement of this. STEP 4) When you discharge from [facility] after transplant you need to be living close to [facility] ( within 30 miles) for up to 100 days after the transplant. You will also need a 24/ caregiv er or team of caregivers to assist you. The caregiver will bring to you clinic several time s a weeks, assist with food preparation, medications etc. Our Nurse Coordinator will work with you and the insurance company to get the proper author izations, and the coordinator will make all the arrangements for your tests and your schedul e. You will get a calendar outlining your schedule. Your physicians nurse is Franci Martinez. You can reach her Sunday thru by page at , by phone at [phone] or via email at [email or web address] DONOR TYPING and SEARCH We would like your siblings names and phone numbers (full siblings only. No 1/2 or steps) P lease provide them to our nurse Franci Martinez via email at [email or web address] Once we have authorization we will send them a kit. They will use the kit to swab the insi de of their mouth and send the kit back to us (it's pre paid via [employer]) It will take 10 days to get the results to know if any siblings are a match to you. We sandrita l contact you with that information. If none of your siblings match we will search an inter national data base to find a donor for you. -You have a diagnosis of myelofibrosis with over lapping features of myelodysplastic syndro me. Myelofibrosis can cause scarring in your marrow, which will make it very hard to make fu nctioning cells. -Looking at your chromosomal abnormalities, you are showing a disease that is higher risk. -Your genetrails show that you have a TP53 mutation-meaning cancer like cells will grow fas ter. This piece also puts you at a higher risk disease. -You have had a DIPSS score completed-but this does not use cytogenetics and molecular muta tions. This scoring still puts you at an intermediate to higher risk stratification. So all of this put together you meet the criteria for an allogeneic stem cell transplant. -Because of your disease process, it could take up to a year for your new donor cells to ta ke over your immune system. -There is a 20-35% transplant mortality. usually comes from infection, chemotherapy c omplications, or from disease relapse. The first 100+ days is the most critical. -You will be on immunosuppressive therapy for up to 6 months to a year -About 50% of patients who go through an allogeneic transplant. About 10-15% of those patie nts get "the really bad" graft vs host disease (GVHD) that start in the gastrointestinal tra ct (mouth to anus). -Chronic graft vs host disease can happen anytime after the first 100+ days. It can give yo u fibrotic skin, joint issues, dry skin/eye/mouth, etc. -I would ideally like to use a full match donor. Even with a full match donor, patients can still get graft vs host disease. -Statistically 30-40% of patients will still be alive in 3-4 years. -I want to emphasize that the stronger you are coming into transplant, the better off you a re going to be. -Transplant can cause some cognitive issues which can manifest from a combination of chemot herapy, stress/mental state, age, as well as hospitalization length of stay. -I will give you the consent form (5633) to read and see if you want to participate in thes e studies. Take care, Dr. Sheri Rosado Check out at the service desk team lead today.You can call the schedulers at [phone]. If you develop any symptoms or have any medical questions, please call the Triage Nurse at [phone] or [phone] (Sunday - Sunday 8:30-4:30). During after hours, ple ase call [phone] and ask to have the BMT Person Business Services Representative paged. FOR PRESCRIPTIONS:please allow 48-72 hours for prescription refills. Please make sure no refills remain prior to calling. If refills remain, please call the pharmacy for a refill. Hematology/Oncology Nurse Coordinator [facility] [address] [facility] [place] [address] tel [phone] fax [phone] documented in this encounter Progress Notes Sheri Rosado MD - 11/10/2019 10:30 AM PDTFormatting of this note might be different fr om the original. 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 History of Present Illness: Fidelia has a past medical history that includes HTN, hypothyroidism, DM (HbA1C 7.2 in August) and "memory issues", who presented with cytopenias in August 2019. PB Flow showed 4% mye loid blasts and bone marrow biopsy most consistent with primary myelofibrosis (MF-2) with me gakaryocytic hyperplasia atypia. She was seen by Dr. Mccauley and also established oncologic c are locally. Started on Jakafi 5mg BID on 08/29/19 with minimal improvement in symptoms. Caut ion with dose escalation due to thrombocytopenia. Transfusion dependency - states last trans fusion in October. 08/05/2019: WBC 2.4 Hb 6.9-8, MCV 87, Plt 36, ANC 3500, Cr 0.67, AST/ALT normal, T Bili 0.4, LDH 339, Uric Acid 4.2 08/06/2019: Peripheral blood, flow cytometric analysis: - Approximately 4% myeloid blasts - Immunophenotype: partial CD7, dim CD11b, dim CD13, CD33, CD34, CD38, CD117, HLA-DR 08/06/2019: ECHO 65-70% EF, CXR - clear, HbA1C 7.2, TSH 1.06, Chol 120, HDL 43, LDL 62 BM Bx on 08/07: Bone marrow aspirate, clot section, core biopsy and peripheral blood: - Hypercellular marrow (90%) with prominent fibrosis and approximately 30% hem atopoietic elements - Increased reticulin fibrosis (MF-2) - Megakaryocytic hyperplasia and atypia - Blasts less than 5% - Peripheral blood with normocytic, normochromic anemia, absolute neutropenia, and thrombocytopenia Comment: The findings favor a diagnosis of primary myelofibrosis, but the differential incl udes other myeloproliferative/myelodysplastic neoplasms, lymphoma, metastasis, autoimmune my elofibrosis/collagen vascular disease, and renal failure among others. KARYOTYPE: 45~46,XX,del(5)(q22q33),-6,-11,add(19)(p13),+1~2mar[cp14]/46,XX[1] Only fifteen metaphase cells were found in all available material. Fourteen cells comprise d a complex abnormal clone with a deleted chromosome 5 long arm, apparent monosomies 6 and 1 1, extra material of uncertain origin (add) attached to a chromosome 19 short arm and two ma rkers (mar - chromosome of uncertain origin. By FISH, below, it appears that some chromosom e 11 material is present, likely in one of the markers or extra material on chromosome 19p. One cell appeared normal female. Fluorescent in situ hybridization (FISH) was performed using an AML/MDS probe panel. Probe sets and number of cells scored are listed below. Results were consistent with the metapha se karyotype as follows: EGR1/5q33/5p15: 26/200 cells (13%) had a 1 red/ 1 green/ 2 aqua signal pattern, consistent with the deleted 5q in the metaphase karyotype. NUP98: 18/200 cells (9%) had a single NUP98 (11p15.4) signal, consistent with the monosomy 11 observed in the metaphase karyotype. However, the MLL (11q23) signal pattern was normal , suggesting that there is chromosome 11 material in an unidentified part of the karyotype. There was no evidence for NUP98 or MLL rearrangement. DEK: 26/200 cells (13%) had a single DEK (6p22) signal, consistent with the monosomy 6 obs erved in the metaphase karyotype. There was no evidence for DEK/AMP586 fusion. Gene Alteration Classification VAF* Targeted Therapy Additional Information TP53 p.L194H Tier I 16% [id number] U2AF1 p.Q157R Tier II 8% [id number] DOCK8 p.S165L Tier III 51% [id number] 09/11/2019: WBC 2.25, Hb 8.8, Plt 16, ANC 80, albumin 3.1 ROS Weight loss of ~ 10% since May 2019. 108 lbs --> 96 lbs. States she eats well. Right hip pain since diagnosis which has improved while on Jakafi Reports fatigue. She does chores around the house but states fatigue prevents her from walk ing outside. Does not go out to the grocery stores. Occasionally dyspnea with exertion Her mood has been ok. Reports inability to sleep on some nights. She has been reading a lot about allogeneic stem cell transplantation which makes her a little anxious. She took notes and brought in questions with her. Her daughter was on the phone. Unfortunately, due to poo r cell connection her could not join. Current Medication List Name Sig ACETAMINOPHEN 500 MG TABLET Take 500 mg by mouth every six hours as needed for mild pain. ACYCLOVIR 800 MG TABLET Take 1 tablet by mouth once daily. Indications: viral infection pre vention ALLOPURINOL 300 MG TABLET Take 1 tablet by mouth once daily. Indications: an increase in ur ic acid due to cancer chemotherapy CELECOXIB 100 MG CAPSULE Take 1 capsule by mouth twice daily as needed. Administer with leslie d. Indications: Pain FLUCONAZOLE 200 MG TABLET Take 1 tablet by mouth two times daily. Indications: fungal infec tion prevention HYDROCHLOROTHIAZIDE 25 MG TABLET Take 25 mg by mouth once daily. LEVOFLOXACIN 500 MG TABLET Take 1 tablet by mouth once daily. Indications: infection preven tion LEVOTHYROXINE 25 MCG TABLET Take 25 mcg by mouth before breakfast. LOSARTAN 100 MG TABLET Take 100 mg by mouth once daily. RUXOLITINIB 5 MG TABLET Take 1 tablet by mouth two times daily. RUXOLITINIB 5 MG TABLET Take 1 tablet by mouth two times daily. SERTRALINE 50 MG TABLET Take 50 mg by mouth once daily. Past Medical History: Diagnosis Date Diabetes mellitus (HCC) HTN (hypertension) Hypothyroid Past Surgical History Procedure Laterality Date Cholecystectomy Family Hx: non contributory Social Hx: , lives with her in [place], [place] Smoking - denies Alcohol - 3 x a week Illicit drugs - denies Reports issues with her memory with age - difficulties remembering names. 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 [employer] gomes worked ~ 20 years ago. Siblings - 60Y brother, healthy, Lives out of state. 2 children - son and daughter PE: Vitals: 11/10/19 1006 BP: 120/68 BP Location: Right upper arm Patient Position: Sitting Pulse: 76 Resp: 16 Temp: 36.8 C (98.3 F) TempSrc: Oral SpO2: 99% Weight: 96.2 kg (212 lb) PainSc: 0 - Zero Body mass index is 34.32 kg/m. Physical Exam Gen: appears comfortable, no distress Head: Sclera anicteric, conjunctiva clear, oropharynx clear Heart: RRR Lungs: CTA x b/l Abd: Soft, non tender, no hepatosplenomegaly Ext: good ROM, no peripheral edema Neuro: AAO x 3, she asked good questions on transplant Psych: appropriate mood and affect. Became a little tearful when discussing complications o f transplant Laboratory CBC with diff last 72 hours (or 3 results) Recent Labs 11/10/19 1158 WBC 2.67* HB 9.0* HCT 26.7* PLT 14* NEUTROPERC 19.1* LYMPHPERC 72.7* MONOPERC 5.5 BASOPERC 0.0 EOSPERC 0.9* Chemistries: Last 72 Hours (or 3 results): Recent Labs 11/10/19 1158 NA 136 K 4.0 CL 100 BICARB 27 BUN 23* EGFRAFRICAN >60 CR 0.86 GLU 102* CA 8.8 Liver Tests: Last 72 hours (or 3 results) Recent Labs 11/10/19 1158 AST 66* ALT 98* TBILI 0.6 AP 450* ALB 3.7 TP 7.4 PFTs - N/A BMBX - see above ECHO - N/A CO-MORBIDITY INDEX Is there a history of mechanical ventilation? no Is there a history of proven invasive fungal infection? no Were there clinically significant co-existing diseases or organ impairment at the time of p atient assessment prior to preparative regimen? no Comorbidities Definitions HCT-CI weighted scores Actual lab Values/Comments Arrhythmia Any h/o Atrial fibrillation or flutter, sick sinus syndrome and ventricular arrh ythmias requiring treatment 1 0 Cardiac Any h/o Coronary artery disease, congestive heart failure, myocardial infarction, o r EF <= 50% pre tx 1 0 Inflammatory bowel disease H/o Crohn's disease or ulcerative colitis w/treatment 1 0 Diabetes Requiring treatment with insulin or oral hypoglycemic agents w/in last 4 weeks, bu t not diet alone 1 1 Cerebro-vascular accident H/o Transient ischemic attack or cerebro-vascular accident 1 0 Psychiatric Disturbance Depression/anxiety requiring psychiatric consult or treatment in pa st 4 weeks 1 1 Hepatic - mild Chronic hepatitis, or any h/o Hep B/Hep C infx, or bilirubin > ULN - 1.[address], or AST/ALT > ULN - 2.5 x ULN 1 0 Obesity Patients with body mass index > 35 kg/m 1 0 BMI 34.6 Infection Requiring continuation of anti-microbial treatment after day 0 1 0 Rheumatologic SLE, RA, polymyositis, mixed CTD polymyalgia rheumatica 2 0 Peptic ulcer Any h/o requiring treatment and confirmed by endoscopy 2 0 Moderate/severe renal Serum creatinine > 2 mg/dl, on dialysis, or prior renal transplantati on 2 0 Moderate Pulmonary DLCO Adj and/or FEV1 > 66 - 80% or dyspnea on slight activity 2 0 Prior solid tumor Treated at any time point in patient's past history, excluding non-melano ma skin cancer and prior Hem Maligs 3 0 Heart Valve disease Except mitral valve prolapse 3 0 Severe pulmonary DLCO Adj and/or FEV1 <= 65% or dyspnea at rest or requiring oxygen 3 0 Moderate/severe hepatic Liver cirrhosis, bilirubin > 1.5 x ULN or AST/ALT > 2.5 x ULN 3 0 HCT-CI = 2, Diabetes, Anxiety Karnofsky Score: 80% Normal activity with effort Assessment and recommendations Fidelia Pickett is a 69 year old woman with diagnosis of primary myelofibrosis (triple ne gative) with 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 # Primary Myelofibrosis (triple negative) with concerns for overlapping MDS - DIPSS - intermediate-2 risk - DIPSS-Plus - high risk, with the addition of her complex cytogenetics and platelets <100 with median OS of 1.5 years - MIPSS 70 - high risk with 5 year OS of 34% AND MIPSS 70 plus v. 2.0 - very high risk with 5 year OS ~ 7% [Vilma Pereyra et al JCO, 2018]. MIPSS risk stratification includes molecul ar markers such as U2AF1 which is present in her diagnostic marrow. [Hb <8, WBC <25, Plt <10 0, PB blasts >2%, MF-2 on marrow, constitutional sx present (weight loss, ~ 10% since May), Absence of CALR, HMR cat present, unfavorable karyotype] - As for the concerns for an overlapping MDS on BM bx, she would likely be a high risk MDS based on complex karyotype and presence of U2AF1 and TP53, also an indication for transplant . - In summary, she has a diagnosis that is potentially curable with allogeneic stem cell tra nsplantation, also with far better prognosis when transplant done before transformation to b last phase. We discussed allogeneic HSCT in detail today, to include donor search, condition ing regimen, graft types, hospital admission and local follow-up for at least first 100 days and more if complications arise such graft failure, acute and chronic GVHD, infections and overall transplant related mortality. Pre-transplant evaluations will determine her final HC T-CI and transplant related mortality. In general there is about 20-30% TRM based on the dave ilable information on her comorbidities with about 2-5% chance of graft failure with primary MF. In primary MF and reduced intensity allogeneic HSCT the median OS is about 30-60% at 5 years, more closer to 50% for Fidelia based on lower TRM with reduced intensity transplant. T his is significantly better when compared to 5 year OS of 7% by MIPSS 70 plus (more accurate given complex cytogenetics) and 34% by MIPSS 70. As such I would recommend moving to trans plant while she is in generally good clinical state. PLAN: 1) Primary MF, concerns of overlapping MDS - high risk per DIPPS plus, MIPSS and MIPSS 70 plus - we discussed allogeneic HSCT as a potentially curative treatment when done while in the b est clinical state and before transformation to blast phase - Fidelia would like some time to decide her decision to proceed with transplant after obtain ing detailed information at our visit today - Treatment per Dr. Mccauley: remains on Jakafi 5 mg BID, as tolerated by her platelet count 2) Allogeneic HSCT - transplant eligibility, HCT-CI of 3 so far which can increase with pre-transplant testing . Concerning issue is her memory loss over the years. Will obtain an eval by Technical Aid fo r risk assessment. - donor search - will start with HLA typing her brother, unrelated donor search - timing of transplant - based on patient readiness and donor availability. Will discuss wi th Dr. Mccauley - conditioning - likely an outpatient Flu/Tatiana candidate. Admission for D0 for stem cell inf usion and until engraftment - Complications - discussed acute GVHD and chronic GVHD in detail. In brief, approximately 50 % of patients who undergo allogeneic HSCT develop GVHD, of those 15-20% develop high grad e GVHD that is difficult to treat with standard therapy (steroids) and resistant to steroids or other lines of therapy. It is a real risk and I discussed its implications on quality of life. 3) HTN - on antihypertensives, BP well controlled 4) DM, HbA1C 7.2 in August - not on treatment. Should have anti-glycemic started. Defer to PCP/Primary oncologist 5) Hypothyroidism - on levothyroxine 6) Anxiety - Was on Zoloft, recently switched to Cymbalta by her PCP. - monitoring improvement with change in med - has ongoing memory issues. Placed Geriatric Consult for pre-transplant assessment. This w ill also help in determining transplant related risks. 7) Physical well being - encouraged her to increase physical activity which will improve outcomes in general and e specially after allogeneic HSCT 8) Relocation for allogeneic HSCT - daughter lives in [facility] 9) Arthralgia, likely disease associated hip pain - improved with Jakafi - Celebrex PRN 10) Trial considerations - Consented for Ctrl-Alt-D for alternative donor search, if indicated. - Gave her consent to review for [facility], will consent at the next visit. A copy of this consult has been sent to the requesting provider. Urgent recommendations, if any, will be communicated with the provider directly. The patient will return to the clinic for follow-up in 1 month. Summary of visit This was a consult or new patient visit with Fidelia Pickett. My gezl-gh-kcja visit laste d 70 minutes, with over 50% of that time spent in counseling and coordination of care. In ad dition to history gathering and physical examination, today, I discussed with the patient th e primary diagnosis, the natural history and overall prognosis of the disease, and treatment options appropriate for the patient. documented in this e ncounter Plan of [...] | | | | | | [place] [address] | | | | | | [phone] | | | | | | | | +--------+ + + + + | 01/14/ | Appointment | Hematology & | Onc, [address] | | | 2020 | | Oncology | [place] | | | | | | [place] [address] | | +--------+ + + + + documented as of this encounter Procedures + +--------+ + + + | Procedure Name | Priori | Date/Time | Associated Diagnosis | Comments | | | ty | | | | + +--------+ + + + | KASHI HLA BM | Routin | 11/10/2019 | MF [...] | | e | 11:58 AM | (HCC) | procedure are in the | | | | PDT | | results section. | + +--------+ + + + | CBC AND AUTO DIFF | Routin | 11/10/2019 | MF (myelofibrosis) | Results for this | | | e | 11:58 AM | (HCC) | procedure are in the | | | | PDT | | results section. | + +--------+ + + + | MANUAL DIFFERENTIAL | Routin | 11/10/2019 | MF (myelofibrosis) | Results for this | | | e | 11:58 AM | (HCC) [...] documented in this encounter Results RBC MORPHOLOGY (11/10/2019 11:58 AM PDT) + +---------+ + + + | Component | Value | Ref Range | Performed | Pathologist | | | | | At | Signature | + +---------+ + + + | ROU[facility] | Present | | [facility] | | [...] LABORATORY | [address] | [place] [address] | | | SERVICES, [facility] | | | | [facility] + [facility] | | | | + + + + + MANUAL DIFFERENTIAL (11/10/2019 11:58 AM PDT) + + + + + + | Component | Value | Ref Range | Performed | Pathologist | | | | | At | Signature | + + + + + + | NEUTROPHIL | 19.1 (L) | 50.0 - 70.0 % | [facility] | | | % | | | LABORATORY | | | | | | [facility], | | | | | | [facility] | | | | [facility] + | | | | | | [facility]ALING | | + + + + + + | LYMPHOCYTE | 72.7 (H) | 18.0 - 42.0 % | [...] + + + + | EOSINOPHIL | 0.9 (L) | 1.0 - 3.0 % | [...] + + + + | IG% | 0.9 | 0.0 - 1.0 % | [facility] | | | | | | LABORATORY | | | | | | SERVICES, | | | | | | [facility] + | | | | | | [facility] | | + + + + + + | ATYPICAL | 0.9 (H) | 0.0 % | [facility] | | | CELL % | | | LABORATORY | | | | | | SERVICES, | | | | | | [facility] + | | | | | | [facility] | | + + + + + + | NEUTROPHIL | 0.51 (L) | 1.80 - 7.70 | [facility] | | | # | | K/cu mm | LABORATORY | | | | | | SERVICES, | | | | | | [facility] + | | | | | | [facility]AL[facility] | | + + + + + + | LYMPHOCYTE | 1.94 | 1.00 - 4.80 | [facility] | [...] + + + + | EOSINOPHIL | 0.02 | 0.00 - 0.50 | [facility] | [...] + + + + | IG# | 0.02 | 0.00 - 0.10 | [facility] | | | | | K/cu mm | LABORATORY | | | | | | SERVICES, | | | | | | [facility] + | | | | | | [facility] | | + + + + + + | ATYPICAL | 0.02 | K/cu mm | [facility] | | [...] are included in the neutrophil count. | [facility] | | | HEALTH + | | | HEALING | + + + + + + + + | Performing | Address | City/State/Zipcode | Phone Number | | Organization | | | | + + + + + | [facility] | [address] | [place] [address] | | | [facility] | | | | | HE[facility] + [facility]ALING | | | | + + + + + CBC AND AUTO DIFF (11/10/2019 11:58 AM PDT) + + + + + + | Component | Value | Ref Range | Performed | Pathologist | | | | | At | Signature | + + + + + + | WHITE CELL | 2.67 (L) | 3.50 - 10.80 | [facility] | | | COUNT | | K/cu mm | LABORATORY | | | | | | SERVICES, | | | | | | [facility] | [facility] + | | | | | | [facility]ALING | | + + + + + + | RED CELL | 3.08 (L) | 4.00 - 5.20 | [facility] | | | COUNT | | M/cu mm | LABORATORY | | | | | | SERVICES, | | | | | | [facility] | [facility] | | [facility] + | | | | | | [facility]ALING | | + + + + + + | HEMOGLOBIN | 9.0 (L) | 12.0 - 16.0 | [facility] | | | | | g/dL | LABORATORY | | | | | | SERVICES, | | | | | | [facility] | [facility] | | [facility] + | | | | | | [facility]ALING | | + + + + + + | HEMATOCRIT | 26.7 (L) | 36.0 - 46.0 % | [facility] | | | | | | LABORATORY | | | | | | SERVICES, | | | | | | [facility] | [facility] + | | | | | | [facility]ALING | | + + + + + + | MCV | 86.7 | 80.0 - 100.0 fL | [facility] | | | | | | LABORATORY | | | | | | SERVICES, | | | | | | [facility] | [facility] + | | | | | | [facility]ALING | | + + + + + + | MCHC | 33.7 | 32.0 - 36.0 | [facility] | | | | | g/dL | LABORATORY | | | | | | SERVICES, | | | | | | [facility] | | [facility] + | | | | | | [facility]ALING | | + + + + + + | RDW SD | 45.0 | 35.1 - 46.3 fL | [facility] | | | | | | LABORATORY | | | | | | SERVICES, | | | | | | [facility] | [facility] + | | | | | | [facility]ALING | | + + + + + + | PLATELET | 14 (L) | 150 - 400 K/cu | [...] + + + + | NRBC% | 3.7 (H) | 0.0 - 0.3 % | [facility] | | | | | | LABORATORY | | | | | | SERVICES, | | | | | | [facility] | [facility] + | | | | | | [facility]ALING | | + + + + + + | NRBC# | 0.10 (H) | 0.00 - 0.02 | [facility] | | | | | K/cu mm | LABORATORY | | | | | | SERVICES, | | | | | | [facility] | | [facility] + | | | | | | HEALING | | + + + + + + | NEUTROPHIL | 0.43 (L)Comment: | 1.80 - 7.70 | [facility] [...] | + + + + + | [facility] | [address] | [place] [address] | | | SERVICES, [facility] | | | | | [facility] + [facility] | | | | + + + + + [facility]ENCE HLA BM RECIPIENT PANEL, DRAW & HOLD ONLY (11/10/2019 11:58 AM PDT) + + + + + + | Component | Value | Ref Range | Performed | Pathologist | | | | | At | Signature | + + + + + + | LABEL ONLY | Please see lab report | | [facility] | | | - LIT | for [...] [facility] | [address] | [place] [address] | | | SERVICES, CORE | [address] | | | + + + + + [facility] - COMPLETE METABOLIC SET (11/10/2019 11:58 AM PDT) + +---------+ + + + | Component | Value | Ref Range | Performed | Pathologist | | | | | At | Signature | + +---------+ + + + | GLUCOSE, | 102 (H) | 70 - 99 mg/dL | [facility] | | | PLASMA | | | LABORATORY | | | (LAB) | | | SERVICES, | | | | | | [facility] | [facility] | [facility] + | | | | | | [facility]ALING | | + +---------+ + + + | BUN, PLASMA | 23 (H) | 6 - 20 mg/dL | [facility] | | | (LAB) | | | LABORATORY | | | | | | SERVICES, | | | | | | [facility] | | [facility] + | | | | | | [facility]ALING | | + +---------+ + + + | CREATININE | 0.86 | 0.60 - 1.10 | [facility] | [...] | | | LABORATORY | | | [place] | | | SERVICES, | | | [...] +---------+ + + + | SODIUM, | 136 [...] +---------+ + + + | CALCIUM, | 8.8 | 8.6 - 10.2 | [facility] | [...] +---------+ + + + | TOTAL | 7.4 [...] +---------+ + + + | ALBUMIN, | 3.7 | 3.5 - 4.7 g/dL | [facility] | | | PLASMA | | | LABORATORY | | | (LAB) | | | SERVICES, | | | | | | [facility] | | | | | [facility] + | | | | | | HEALING | | + +---------+ + + + | ALK PHOS | 450 (H) | 53 - 141 U/L | [facility] | | | | | | LABORATORY | | | | | | SERVICES, | | | | | | [facility] | [facility] + | | | | | | [facility]ALING | | + +---------+ + + + | AST(SGOT) | 66 (H) | <=41 U/L | [facility] | | | | | | LABORATORY | | | | | | SERVICES, | | | | | | [facility] | | [facility] + | | | | | | HEALING | | + +---------+ + + + | ALT (SGPT) | 98 (H) | <=60 U/L | [facility] | | [...] +---------+ + + + | ANION | 9 | 4 - 11 mmol/L [...] +---------+ + + + | GLOBULIN | 3.7 (H) | 2.3 - 3.5 gm/dL | [facility] | | | LVL | | | LABORATORY | | | | | | SERVICES, | | | | | | [facility] | | | | [facility] + | | | | | | HEALING | | + +---------+ + + + | ALBUMIN/ASHA | 1.0 | 0.7 - 2.8 | [...] MDRD equation recommended by the National | [facility] | | Kidney Disease Education Program. [...] [facility] | [address] | [place] [address] | | | SERVICES, [facility] | | | | | [facility] + [facility]AL[facility] | | | | + + + + + documented in this encounter Visit Diagnoses + + | Diagnosis | + + | MF (myelofibrosis) (HCC) Myelofibrosis | + + documented in this encounter
--- OUTSIDE RECORDS SUMMARY | ~2019-12-27 | XMS | Encounter Summary ---
Demographics + + + | Address | [address] | | | [place] [address] | + + + | Home Phone | | + + + | Preferred Language | Unknown | + + + | Marital Status | | + + + | Methodist Affiliation | LUT | + + + [...] Team Providers + +------+ + | Care Shovel Oiler Name | Role | Phone | + +------+ + | Oz Rodriguez MD | PCP | | + +------+ + Encounter Details +--------+ + + + + | Date | Type | Department | Care Team | Description | +--------+ + + + + | 08/27/ | Pharmacy | [facility] | | | | 2020 | Visit | [address] | | | | | | [address] | | | | | | [place] [address] | | | | | | [phone] | | | +--------+ + + + [...] | | | | | [address] [place], | | | | | | [place] [address] | | | | | | [phone] | | | | | | | | +--------+ + + + + | 01/14/ | Appointment | Hematology & | Onc, Gen [address] | | | 2019 | | Oncology | [place] | | | | | | [place] [address] | | +--------+ + + + + documented as of this encounter Visit Diagnoses Not on filedocumented in this encounter"
--- OUTSIDE RECORDS SUMMARY | ~2019-12-27 | XMS | Encounter Summary ---
Demographics + + + | Address | [address] | | | [place] [address] | + + + | Home Phone | | + + + | Preferred Language | Unknown | + + + | Marital Status | | + + + | Jain Affiliation | LUT | + + + [...] Team Providers + +------+ + | Care Residential Service Technician Name | Role | Phone | + +------+ + | Oz Rodriguez MD | PCP | | + +------+ + Encounter Details +--------+ + + + + | Date | Type | Department | Care Team | Description | +--------+ + + + + | 10/09/ | Pharmacy | Pharmacy @ [facility] | | | | 2020 | Visit | [address] | | | | | | [address] Mailcode: | | | | | | [facility] | | | | | | [address], | | | | | | [address] | | | | | | [place], [place] | | | | | | [address] | | | +--------+ + + + [...] | | | | | [address], | | | | | | [place] [address] | | | | | | [phone] | | | | | | | | +--------+ + + + + | 01/14/ | Appointment | Hematology & | Onc, [address] | | | 2020 | | Oncology | [place], | | | | | | [place] [address] | | +--------+ + + + + documented as of this encounter Visit Diagnoses Not on filedocumented in this encounter"
--- OUTSIDE RECORDS SUMMARY | ~2019-12-27 | XMS | Encounter Summary ---
Demographics + + + | Address | [address] | | | [place] [address] | + + + | Home Phone | | + + + | Preferred Language | Unknown | + + + | Marital Status | | + + + | Anabaptism Affiliation | Unknown | + + + | Race | Unknown | + + + | Ethnic Group | Unknown | + + + Author + + + | Author | [facility] | | | and [facility] | + + + | Organization | [facility] | | | [...] Providers + +------+ + | Care Supervisor Metal Fabricating Name | Role | Phone | + +------+ + | No, Physician | PCP | Unavailable | + +------+ + Reason for Visit +--------+--------+ + | Reason | Onset | Comments | | | Date | | +--------+--------+ + | Other | 04/01/ | new patient | | | 2019 | | +--------+--------+ + Encounter Details +--------+ + + + + | Date | Type | Department | Care Team | Description | +--------+ + + + + | 04/01/ | Telephone | [facility] | Victor Manuel Amaya, | Other (new patient) | | 2019 | | NEUROLOGY [address] | MD [address] | | | | | [address] | [address] [facility] [address] | | | | | [place], [place] | [place] [address] | | | | | [address] | [phone] | | | | | [phone] | | | +--------+ + + + + Social History + +-------+ +--------+------+ | Tobacco Use | Types | Packs/Day | Years | Date | | | | | Used | | + +-------+ +--------+------+ | Never Smoker | | | | | + +-------+ +--------+------+ + + + | Sex Assigned at | Date Recorded | | | | + + + | Not on file | | + + + documented as of this encounter Miscellaneous Notes Telephone Encounter - Camelia Solano - 04/24/2019 3:10 PM PSTElaina, is calling again for Other (new patient) and would like a call back. Additional Call Details: Morena, patients daughter, would like a call back in regards to shila mason being on Wait List and some questions. Morena can be reached at [phone] elephone Encounter - Kathleen Rayo - 04/01/2019 3:30 PM PDTSpoke with Fidelia, sooner apt is not available. Sunitha ent placed on wait list. TTelephone Encounter - Mauricio Rangel - 04/01/2019 9:44 AM PDTCarol, is calling regarding Other (new patient) and would like a call back. Additional Call Details: Calling to see about a sooner appointment than 05/15/19. Please c all her back at home phone listed. If this is a symptom based call, was patient offered triage? Not Applicable If this is a symptom based call and you were unable to immediately transfer the call to a p cong code enforcement officer was caller made aware that if at any time she feels it is an emergency they sh ould call 911 or go to the nearest emergency room? not applicable documented in this encounter Plan of Treatment Not on filedocumented as of this encounter Visit Diagnoses Not on filedocumented in this encounter"
--- OUTSIDE RECORDS SUMMARY | ~2019-12-27 | XMS | Encounter Summary ---
Demographics + + + | Address | [address] | | | [place] [address] | + + + | Home Phone [...] Team Providers + +------+ + | Care Broker Associate Name | Role | Phone | + +------+ + | Oz Rodriguez MD | PCP | | + +------+ + Encounter Details +--------+ + + + + | Date | Type | Department | Care Team | Description | +--------+ + + + + | 08/31/ | Pharmacy | Pharmacy @ [facility] | | | | 2020 | Visit | [address] | | | | | | [address] Mailcode: | | | | | | [facility] | | | | | | [address], | | | | | | [address] | | | | | | [place], [place] | | | | | | [address] | | | +--------+ + + + [...] | | | | | [address] [place] [place], | | | | | | [place] [address] | | | | | | [phone] | | | | | | | | +--------+ + + + + | 01/14/ | Appointment | Hematology & | Onc, [address] | | | 2020 | | Oncology | [place], | | | | | | [place] [address] | | +--------+ + + + + documented as of this encounter Visit Diagnoses Not on filedocumented in this encounter"
--- OUTSIDE RECORDS SUMMARY | ~2019-12-27 | XMS | Encounter Summary ---
Demographics + + + | Address | [address] | | | [place] [address] | + + + | Home Phone | | + + + | Preferred Language | Unknown | + + + | Marital Status | | + + + | Gnosticism Affiliation | LUT | + + + [...] Team Providers + +------+ + | Care Scrap Preparation Supervisor Name | Role | Phone | + +------+ + | Margarita Patterson | PCP | | + +------+ + Reason for Visit + + + | Reason | Comments | + + + | Lab Draw | PICC | + + + | Medication | Potassium | | Administration | | + + + Encounter Details +--------+ + + + + | Date | Type | Department | Care Team | Description | +--------+ + + + + | 09/10/ | Hospital | [facility] | A, [address] | | | 2020 | Encounter | Clinics at S | [facility], | | | | | [address] | [place] [address] | | | | | [facility] | | | | | | [facility] and Healing, | | | | | | [address] | | | | | | [place], [place] | | | | | | [address] | | | | | | [phone] | | | +--------+ + + + [...] + + + | Blood Pressure | 136/65 | 09/11/2019 3:08 PM | | | | | PDT | | + + + + + | Pulse | 78 | 09/11/2019 3:08 PM | | | | | PDT | | + + + + + | Temperature | 36.7 C (98 F) | 09/11/2019 3:08 PM | | | | | PDT | | + + + + + | Respiratory Rate | 16 | 09/11/2019 3:08 PM | | | | | PDT | | + + + + + | Oxygen Saturation | 100% | 09/11/2019 3:08 PM | | | | | PDT | | + + + + + | Inhaled Oxygen | - | - | | | Concentration | | | | + + + + + | Weight | 99.3 kg (219 lb) | 09/11/2019 3:08 PM | | | | | PDT | | + + + + + | Height | - | - | | + + + + + | Body Mass Index | 35.45 | 08/05/2019 10:34 PM | | | [...] documented as of this encounter Progress Notes Aisha Navarro RN - 09/11/2019 3:10 PM PDTInfusion/Chemotherapy Nurse Note Physician: Dr. Mccauley Narrative: 69 y.o. F arrives ambulatory to clinic today for labs + supportive care. Patient reports no pretreatment questions or concerns. Nursing Assessment Vital Signs: within normal limits Pain: 0/10 Fever / Chills: denies Dyspnea / Cough: ongoing SOB; mostly with exertion. SOB has not worsened in the last week, has been stable Dizziness / Lightheadedness: denies Chest Pain: denies S/S bleeding: bleeding right nostril yesterday, "large clot passed" and then had scant drai nage off and on throughout the day. Pt also with small dime sized bruise under left eye Edema: denies Skin / Rash: denies Neuropathy: denies Fatigue / Malaise: low energy Mucositis: denies Nausea, vomiting or loss of appetite: denies Fluid intake: 2 liters/day Diarrhea or constipation: denies Urinary issues: denies Venous Access PICC accessed per protocol. Good blood return noted. Appropriate waste discarded. Labs d rawn and sent. PICC pulse flushed with 20 mL NS. Dressing Change Due 09/16/2019. Per Orders Infusion Plan: Potassium chloride 40 meq PO given per supportive care orders for a potassium level of 3.3. Supportive Plan: No orders. Prior to D/C, all questions and concerns addressed. Patient was reminded to call clinic wit h temp > 100.4, chills, s/s of bleeding or uncontrolled N/V/D/C. Patient d/c d ambulato ry in stable condition. Aisha Navarro RN Tdocumented in this encounter Plan of Treatment +--------+ + [...] 2019 | Visit | Malignancy | [address] | | | | | | [place], | | | | | | [place] [address] | | | | | | [phone] | | | | | | | | +--------+ + + + + | 01/14/ | Appointment | Hematology & | Onc, Gen [address] | | | 2019 | | Oncology | [place], | | | | | | [place] [address] | | +--------+ + + + + + + +--------+ + + | Name | Type | Priori | Associated Diagnoses | Order Schedule | | | | ty | | | + + +--------+ + + | MANUAL DIFFERENTIAL | Lab - | Routin | Pancytopenia (HCC) | 09/11/2019 until | | | [facility] | e | | discontinued, 1 | | | Performable | | | completed | | | s | | | | + + +--------+ + + | RBC MORPHOLOGY | Lab - | Routin | Pancytopenia (HCC) | 09/11/2019 until | | | [facility] | [...] | [facility] - MAGNESIUM, | Routin | 09/11/2019 | Pancytopenia (HCC) | Results for this | | PLASMA | e | 3:07 PM | | procedure are in the | | | | PDT | | results section. | + +--------+ + + + | [facility] - PHOSPHORUS, | Routin | 09/11/2019 | Pancytopenia (HCC) | Results for this | | PLASMA | e | 3:07 PM | | procedure are in the | | | | PDT | | results section. | + +--------+ + + + | RBC MORPHOLOGY | Routin | 09/11/2019 | Pancytopenia (HCC) | Results for this | | | e | 3:07 PM | | procedure are in the | | | | PDT | | results section. | + +--------+ + + + | CBC AND AUTO DIFF | Routin | 09/11/2019 | Pancytopenia (HCC) | Results for this | | | e | 3:07 PM | | procedure are in the | | | | PDT | | results section. | + +--------+ + + + | MANUAL DIFFERENTIAL | Routin | 09/11/2019 | Pancytopenia (HCC) | Results for this | | | e | 3:07 PM | | procedure are in the | | | | PDT | | results section. | + +--------+ + + + | [facility] - COMPLETE | Routin | 09/11/2019 | Pancytopenia (HCC) | Results for this | | METABOLIC SET | e | 3:07 PM | | procedure are in the | | | | PDT | | results section. | + +--------+ + + + | [facility] CBC W | Routin | 09/11/2019 | Pancytopenia (HCC) | Results for this | | DIFFERENTIAL | e | 3:07 PM | | procedure are in the | | | | PDT | | results section. | + +--------+ + + + | BLOOD BANK HOLD TUBE | Routin | 09/11/2019 | Pancytopenia (HCC) | Results for this | | - DON | e | 3:07 PM | | procedure are in the | | | | PDT | | results section. | | T PROCESS | | | | | + +--------+ + + + documented in this encounter Results RBC MORPHOLOGY (09/11/2019 3:07 PM PDT) + + + + + [...] + + + + + + | SCHISTOCYTE | 1+ (1-4 cells/HPF) | | [facility] | | | S [...] | + + + + + | [facility] | [address] | [place] [address] | | | SERVICES, [place] [facility] | | | | | [facility] + [facility] | | | | + + + + + MANUAL DIFFERENTIAL (09/11/2019 3:07 PM PDT) + + + + + + | Component | Value | Ref Range | Performed | Pathologist | | | | | At | Signature | + + + + + + | NEUTROPHIL | 3.6 (L) | 50.0 - 70.0 % | [facility] | | | % | | | LABORATORY | | | | | | SERVICES, | | | | | | [facility] + | | | | | | [facility]ALING | | + + + + + + | LYMPHOCYTE | 90.1 (H) | 18.0 - 42.0 % | [facility] | | | % | | | LABORATORY | | | | | | SERVICES, | | | | | | [facility] | [facility] + | | | | | | [facility]ALING | | + + + + + + | MONOCYTE % | 1.8 (L) | 3.5 - 9.0 % | [...] + + + + | NEUTROPHIL | 0.08 (L) | 1.80 - 7.70 | [facility] | | | # | | K/cu mm | LABORATORY | | | | | | SERVICES, | | | | | | [facility] | | | | [facility] + | | | | | | HEALING | | + + + + + + | LYMPHOCYTE | 2.03 | 1.00 - 4.80 | [facility] | | | # | | K/cu mm | LABORATORY | | | | | | SERVICES, | | | | | | [facility] | | | | [facility] + | | | | | | HEALING | | + + + + + + | MONOCYTE # | 0.04 (L) | 0.10 - 0.90 | [facility] [...] + + + + | ATYPICAL | 0.10 | K/cu mm | [facility] | | [...] LABORATORY | [address] | [place] [address] | | | SERVICES, [facility] [facility] | | | | | [facility] + [facility]ALING | | | | + + + + + CBC AND AUTO DIFF (09/11/2019 3:07 PM PDT) + + + + + + | Component | Value | Ref Range | Performed | Pathologist | | | | | At | Signature | + + + + + + | WHITE CELL | 2.25 (L) | 3.50 - 10.80 | [facility] | | | COUNT | | K/cu mm | LABORATORY | | | | | | SERVICES, | | | | | | [facility] | | | [facility] + | | | | | | HEALING | | + + + + + + | RED CELL | 3.10 (L) | 4.00 - 5.20 | [facility] | | | COUNT | | M/cu mm | LABORATORY | | | | | | SERVICES, | | | | | | [facility] | | | | | | [facility] + | | | | | | HEALING | | + + + + + + | HEMOGLOBIN | 8.8 (L) | 12.0 - 16.0 | [facility] [...] + + + + | MCV | 81.6 | 80.0 - 100.0 fL | [facility] | | | | | | LABORATORY | | | | | | SERVICES, | | | | | | [facility] | | | | | | [facility] + | | | | | | HEALING | | + + + + + + | MCHC | 34.8 | 32.0 - 36.0 | [facility] | | | | | g/dL | LABORATORY | | | | | | SERVICES, | | | | | | [facility] | | | | | | [facility] + | | | | | | HEALING | | + + + + + + | RDW SD | 37.4 | 35.1 - 46.3 fL | [facility] [...] + + + + | NEUTROPHIL | 0.07 (L)Comment: | 1.80 - 7.70 | [facility] [...] | + + + + + | [facility] | [address] | [place] [address] | | | SERVICES, [facility] [facility] | | | | | [facility] + [facility]ALING | | | | + + + + + BLOOD BANK HOLD TUBE - DON T PROCESS (09/11/2019 3:07 PM PDT) + + + + + [...] [facility] | [address] | [place] [address] | | | SERVICES, | [address] | | | | TRANSFUSION MEDICINE | | | | + + + + + [facility] - PHOSPHORUS, PLASMA (09/11/2019 3:07 PM PDT) + +-------+ + + + [...] SERVICES, | | | | | | [facility] | | | | | | [...] | + + + + + | [facility] | [address] | [place] [address] | | | [facility], [facility] [facility] | | | | | HEALTH + HEALING | | | | + + + + + [facility] - MAGNESIUM, PLASMA (09/11/2019 3:07 PM PDT) + +-------+ + + + [...] | + + + + + | [facility] | [address] | [place] [address] | | | SERVICES, [facility] [facility] | | | | | [facility] + HEALING | | | | + + + + + [facility] - COMPLETE METABOLIC SET (09/11/2019 3:07 PM PDT) + +---------+ + + + | Component | Value | Ref Range | Performed | Pathologist | | | | | At | Signature | + +---------+ + + + | GLUCOSE, | 216 [...] + + + | BUN, PLASMA | 25 (H) | 6 - 20 mg/dL | [facility] | | | (LAB) | | | LABORATORY | | | | | | SERVICES, | | | | | | [facility] | | | [facility] + | | | | | | HEALING | | + +---------+ + + + | CREATININE | 0.93 | 0.60 - 1.10 | [facility] | [...] | | | LABORATORY | | | COMORAN | | | SERVICES, | | | | | | [facility] | [facility] | | | | [facility] + | | | | | | HEALING | | + +---------+ + + + | EGFR NON | 60 (L) | >60 mL/min | [facility] | | [...] +---------+ + + + | CALCIUM, | 9.3 | 8.6 - 10.2 | [facility] | | | PLASMA | | mg/dL | LABORATORY | | | (LAB) | | | SERVICES, | | | | | | [facility] | | [facility] | | [facility] + | | | | | | HEALING | | + +---------+ + + + | CALCIUM(ALB | 10.0 | 8.6 - 10.2 | [facility] | | | CORRECTED) | | mg/dL | LABORATORY | | | | | | SERVICES, | | | | | | [facility] | | | [facility] + | | | | | | HEALING | | + +---------+ + + + | BILIRUBIN | 0.3 | 0.3 - 1.2 mg/dL | [facility] | | | TOTAL | | | LABORATORY | | | | | | SERVICES, | | | | | | [facility] | | | | | | [facility] + | | | | | | HEALING | | + +---------+ + + + | TOTAL | 7.5 | 6.4 - 8.2 g/dL | [facility] [...] + + + | ALK PHOS | 137 | 53 - 141 U/L | [facility] [...] + + + | ALT (SGPT) | 20 | <=60 U/L | [facility] | | [...] MDRD equation recommended by the National | [facility] | | Kidney Disease Education Program. Estimated [...] | + + + + + | [facility] | [address] | [place] [address] | | | [facility], [facility] | | | | | HEALTH [...] | | | + +--------+ +--------+------+------+ | potassium chloride SR | Given | 09/11/19 | 40 mEq | | | | (ALLA-TITUS) tablet 40 mEq 40 mEq, | | 20 4:11 | | | | | oral, ONCE, 1 dose, Floridalma 09/11/19 | | PM PDT | | | | | at 1615 | | | | | | + +--------+ +--------+------+------+ +---+---+ | | | +---+---+ documented in this encounter
--- OUTSIDE RECORDS SUMMARY | ~2019-12-27 | XMS | Encounter Summary ---
Demographics + + + | Address | [address] | | | [place] [address] | + + + | Home Phone | | + + + | Preferred Language | Unknown | + + + | Marital Status | | + + + | Yazdanism Affiliation | LUT | + + + | Race | White | + + + | Ethnic Group | Not or | + + + Author + + + | Author | [facility] | + + + | Organization | [facility] | + + + | [...] Team Providers + +------+ + | Care Tree Tapping Laborer Name | Role | Phone | [...] + + | 12/15/ | Telephone | [facility] | Sheri Rosado, | Covid19 Screening | | 2020 | | Clinics at S | MD [address] | | | | | [address] | | | | | [facility] | [place], [place] | | | | | Health and Healing, | [address] | | | | | [facility] | [phone] | | | | | [place], [place] | | | | | | [address] | | | | | | [phone] | | | +--------+ + + + [...] | | | | | | [place] [address] | | | | | | [phone] | | | | | | | | +--------+ + + + + | 01/14/ | Appointment | Hematology & | Onc, Gen [address] | | | 2019 | | Oncology | [place], | | | | | | [place] [address] | | +--------+ + + + + documented as of this encounter Visit Diagnoses Not on filedocumented in this encounter"
--- OUTSIDE RECORDS SUMMARY | ~2019-12-27 | XMS | Encounter Summary ---
Demographics + + + | Address | [address] | | | [place] [address] | + + + | Home Phone [...] Team Providers + +------+ + | Care Meat Puller Name | Role | Phone | + +------+ + | SilverioMargarita crawford SUPERVISOR MILL | PCP | | + +------+ + Encounter Details +--------+--------+ + + + | Date | Type | Department | Care Team | Description | +--------+--------+ + + + | 12/03/ | Travel [...] | | | | | | [place] [address] | | | | | | [phone] | | | | | | | | +--------+ + + + + | 01/14/ | Appointment | Hematology & | Onc, Gen [address] | | | 2019 | | Oncology | [place] | | | | | | [place] [address] | | +--------+ + + + + documented as of this encounter Visit Diagnoses Not on filedocumented in this encounter"
--- OUTSIDE RECORDS SUMMARY | ~2019-12-27 | XMS | Encounter Summary ---
Demographics + + + | Address | [address] | | | [place] [address] | + + + | Home Phone [...] Team Providers + +------+ + | Care Family Court Registrar Name | Role | Phone | + +------+ + | SilverioMargarita crawford CHRONOMETER ASSEMBLER AND ADJUSTER | PCP | | + +------+ + Encounter Details +--------+--------+ + + + | Date | Type | Department | Care Team | Description | +--------+--------+ + + + | 08/28/ | Travel | | | | | [...] | | | | | | [place] [address] | | | | | | [phone] | | | | | | | | +--------+ + + + + | 01/14/ | Appointment | Hematology & | Onc, [address] | | | 2019 | | Oncology | [place] | | | | | | [place] [address] | | +--------+ + + + + documented as of this encounter Visit Diagnoses Not on filedocumented in this encounter"
--- OUTSIDE RECORDS SUMMARY | ~2019-12-27 | XMS | Encounter Summary ---
Demographics + + + | Address | [address] | | | [place] [address] | + + + | Home Phone [...] Team Providers + +------+ + | Care Prop Setter Name | Role | Phone | + [...] | Clinics at S | [address] [facility] | (levoFLOXacin) | | | | [address] [place], | | | | | [facility] | [place] [address] | | | | | Health and Healing, | [phone] | | | | | [address] | | | | | | [place], [place] | | | | | | [address] | | | | | | [phone] | | | +--------+--------+ + + + [...] | | | | | | [place] [address] | | | | | | [phone] | | | | | | | | +--------+ + + + + | 01/14/ | Appointment | Hematology & | Onc, [address] | | | 2019 | | Oncology | [place] | | | | | | [place] [address] | | +--------+ + + + + documented as of this encounter Visit Diagnoses Not on filedocumented in this encounter"
--- OUTSIDE RECORDS SUMMARY | ~2019-12-27 | XMS | Encounter Summary ---
Demographics + + + | Address | [address] | | | [place] [address] | + + + | Home Phone | | + + + | Preferred Language | Unknown | + + + | Marital Status | | + + + | Hindu Affiliation | LUT | + + + | Race | White | + + + | Ethnic Group | Not or | + + + Author + + + | Author | [facility] | + + + | Organization | [facility] | + + + | Address [...] Team Providers + +------+ + | Care Platform Engineer Name | Role | Phone | + +------+ + | Oz Rodriguez MD | PCP | | + +------+ + Encounter Details +--------+ + + + + | Date | Type | Department | Care Team | Description | +--------+ + + + + | 12/15/ | Road Worker | [facility] | Daysi Mccauley MD | Myelofibrosis (HCC) | | 2020 | | Clinics at S | [address] | (Primary Dx); | | | | [address] | [address] [facility], | Personal history of | | | | [facility] for | [place] [address] | diseases of the | | | | Health and Healing, | [phone] | blood and | | | | [address] | | blood-forming organs | | | | [place], [place] | | and certain | | | | [address] | | disorders involving | | | | [phone] | | the immune mechanism | | [...] | | | | | | [place] [address] | | | | | | [phone] | | | | | | | | +--------+ + + + + | 01/14/ | Appointment | Hematology & | Onc, Gen [address] | | | 2019 | | Oncology | [place], | | | | | | [place] [address] | | +--------+ + + + + + +------+--------+ + + | Name | Type | Priori | Associated Diagnoses | Order Schedule | | | | ty | | | + +------+--------+ + + | [facility] - CBC W | Lab | Routin | Myelofibrosis | Expected: 12/17/2019 | | DIFFERENTIAL | | e | (HCC) | (Approximate), | | | | | | Expires: 01/15/2021 | + +------+--------+ + + | [facility] - COMPLETE | Lab | Routin | Myelofibrosis | Expected: 12/17/2019 | | METABOLIC SET | | e | (HCC) | (Approximate), | | | | | | Expires: 01/15/2021 | + +------+--------+ + + documented as of this encounter Results HEMOGLOBIN A1C, BLOOD (12/17/2019 7:56 AM PDT) [...] | [facility] | | considered for monitoring mcfp glycemic control in patients with: | LABORATORY [...] [facility] | [address] | [place] [address] | | | SERVICES, SPECIAL | [address] | | | | IMM + COAG | | | | + + + + + documented in this encounter Visit Diagnoses + + | Diagnosis | + + | Myelofibrosis (HCC) - Primary Myelofibrosis | + + | Personal history of diseases of the blood and blood-forming organs and certain | | disorders involving the immune mechanism | + + documented in this encounter"
--- OUTSIDE RECORDS SUMMARY | ~2019-12-27 | XMS | Encounter Summary ---
Demographics + + + | Address | [address] | | | [place] [address] | + + + | Home Phone | | + + + | Preferred Language | Unknown | + + + | Marital Status | | + + + | Sikh Affiliation | LUT | + + + | Race | White | + + + | Ethnic Group | Not or | + + + Author + + + | Author | [facility] | + + + | Organization | [facility] | + + + | [...] Team Providers + +------+ + | Care Smoking Pipe Repairer Name | Role | Phone | [...] + + | 09/10/ | Hospital | [facility] | A, [address] | | | 2020 | Encounter | Clinics at S | [facility], | | | | | [address] | [place] [address] | | | | | [facility] for | | | | | | Health and Healing, | | | | | | [address] | | | | | | [place], [place] | | | | | | [address] | | | | | | [phone] | | | +--------+ + + + [...] | | | | | [address] [place], | | | | | | [place] [address] | | | | | | [phone] | | | | | | | | +--------+ + + + + | 01/14/ | Appointment | Hematology & | Onc, Gen [address] | | | 2019 | | Oncology | [place], | | | | | | [place] [address] | | +--------+ + + + + [...] | + + + + + | [facility] | [address] | [place] [address] | | | SERVICES, [facility] [facility] | | | | | HEALTH [...] LABORATORY | [address] | [place] [address] | | | SERVICES, [place] [facility] [facility] | | | | | HEALTH [...] [facility] | [address] | [place] [address] | | | SERVICES, [place] [facility] [facility] | | | | | HEALTH [...] [facility] | [address] | [place] [address] | | | SERVICES, | [address] [...] SERVICES, | | | | | | [facility] | | | | | | HEALTH [...] | + + + + + | [facility] | [address] | [place] [address] | | | [facility], [place] [facility] [facility] | | | | | HEALTH [...] | + + + + + | [facility] | [address] | [place] [address] | | | SERVICES, [facility] | | | | | [facility] + HEALING | | | | + + + + + [facility] - COMPLETE METABOLIC SET (09/11/2019 3:07 PM [...] | | | LABORATORY | | | [facility] | | | SERVICES, | | | [...] MDRD equation recommended by the National | [facility] | | Kidney Disease Education Program. Estimated [...] [facility] | [address] | [place] [address] | | | [facility], [facility] | | | | | HEALTH + [...]
--- OUTSIDE RECORDS SUMMARY | ~2019-12-27 | XMS | Encounter Summary ---
Demographics + + + | Address | [address] | | | [place] [address] | + + + | Home Phone | | + + + | Preferred Language | Unknown | + + + | Marital Status | | + + + | Spiritism Affiliation | LUT | + + + [...] Team Providers + +------+ + | Care Storeroom Clerk Name | Role | Phone | + +------+ + | Oz Rodriguez MD | PCP | | + +------+ + Encounter Details +--------+--------+ + + + | Date | Type | Department | Care Team | Description | +--------+--------+ + + + | 12/16/ | Travel [...] | | | | | | [place] [address] | | | | | | [phone] | | | | | | | | +--------+ + + + + | 01/14/ | Appointment | Hematology & | Onc, [address] | | | 2019 | | Oncology | [place], | | | | | | [place] [address] | | +--------+ + + + + documented as of this encounter Visit Diagnoses Not on filedocumented in this encounter"
--- OUTSIDE RECORDS SUMMARY | ~2019-12-27 | XMS | Encounter Summary ---
Demographics + + + | Address | [address] | | | [place] [address] | + + + | Home Phone [...] Team Providers + +------+ + | Care Chromium Plater Name | Role | Phone | + +------+ + | Oz Rodriguez MD | PCP | | + +------+ + Encounter Details +--------+ + + + + | Date | Type | Department | Care Team | Description | +--------+ + + + + | 08/07/ | Pharmacy | Specialty Pharmacy | | | | 2019 | Visit | Services [address] | | | | | | [address] | | | | | | [place], [place] | | | | | | [address] | | | | | | [phone] | | | +--------+ + + + [...] | | | | | [place] [address], | | | | | | [place] [address] | | | | | | [phone] | | | | | | | | +--------+ + + + + | 01/14/ | Appointment | Hematology & | Onc, [address] | | | 2019 | | Oncology | [place], | | | | | | [place] [address] | | +--------+ + + + + documented as of this encounter Visit Diagnoses Not on filedocumented in this encounter"
--- OUTSIDE RECORDS SUMMARY | ~2019-12-27 | XMS | Encounter Summary ---
Demographics + + + | Address | [address] | | | [place] [address] | + + + | Home Phone [...] Team Providers + +------+ + | Care Log Haul Chain Feeder Name | Role | Phone | + +------+ + | SilverioMargarita crawford WATCH DIAL MAKER | PCP | | + +------+ + Encounter Details +--------+--------+ + + + | Date | Type | Department | Care Team | Description | +--------+--------+ + + + | 12/08/ | Travel [...] 01/14/ | Office | Hematology | Daysi Mccualey MD | | | 2019 | Visit | Malignancy | [address] | | | | | | [place], | | | | | | [place] [address] | | | | | | [phone] | | | | | | | | +--------+ + + + + | 01/14/ | Appointment | Hematology & | Onc, Gen [address] | | | 2019 | | Oncology | [place] | | | | | | [place] [address] | | +--------+ + + + + documented as of this encounter Visit Diagnoses Not on filedocumented in this encounter"
--- OUTSIDE RECORDS SUMMARY | ~2019-12-27 | XMS | Encounter Summary ---
Demographics + + + | Address | [address] | | | [place] [address] | + + + | Home Phone | | + + + | Preferred Language | Unknown | + + + | Marital Status | | + + + | Congregational Affiliation | LUT | + + + | Race | White | + + + | Ethnic Group | Not or | + + + Author + + + | Author | [facility] | + + + | Organization | [facility] | + + + | Address | [...] Team Providers + +------+ + | Care Color Strainer Name | Role | Phone | + +------+ + | Oz Rodriguez MD | PCP | | + +------+ + Encounter Details +--------+ + + + + | Date | Type | Department | Care Team | Description | +--------+ + + + + | 08/27/ | Pharmacy | Specialty Pharmacy | | | | 2019 | Visit | Services [address] | | | [address] | | | | | | [place], [place] | | | | | | [address] | | | | | | [phone] | | | +--------+ + + + [...] | | | | | [facility] | | | | | | [place] [address] | | | | | | [phone] | | | | | | | | +--------+ + + + + | 01/14/ | Appointment | Hematology & | Onc, [address] | | | 2019 | | Oncology | [place] | | | | | | [place] [address] | | +--------+ + + + + documented as of this encounter Visit Diagnoses Not on filedocumented in this encounter"
--- OUTSIDE RECORDS SUMMARY | ~2019-12-27 | XMS | Encounter Summary ---
Demographics + + + | Address | [address] | | | [place] [address] | + + + | Home Phone [...] Team Providers + +------+ + | Care Protective Signal Operations Supervisor Name | Role | Phone | + +------+ + | Oz Rodriguez MD | PCP | | + +------+ + Encounter Details +--------+ + + + + | Date | Type | Department | Care Team | Description | +--------+ + + + + | 08/27/ | Pharmacy | Specialty Pharmacy | | | | 2019 | Visit | Services [address] | | | | | | [address] | | | | | | [place], [place] | | | | | | [address] | | | | | | [phone] | | | +--------+ + + + [...] | | | | | [facility] | | | | | | [place] [address] | | | | | | [phone] | | | | | | | | +--------+ + + + + | 01/14/ | Appointment | Hematology & | Onc, Gen [address] | | | 2019 | | Oncology | [place] | | | | | | [place] [address] | | +--------+ + + + + documented as of this encounter Visit Diagnoses Not on filedocumented in this encounter"
--- OUTSIDE RECORDS SUMMARY | ~2019-12-27 | XMS | Encounter Summary ---
Demographics + + + | Address | [address] | | | [place] [address] | + + + | Home Phone [...] Team Providers + +------+ + | Care Title Coordinator Name | Role | Phone | [...] + + | 08/10/ | Telephone | SOCIAL WORK | Luc [place], | housing accomodation | | 2019 | | AMBULATORY [address] | [address] [facility] | | | | | [address] [facility] [address] | [facility] | | | | | Mailcode: CH6A | [place], [place] | | | | | [place], [place] | [address] | | | | | [address] | | | | | | [phone] | | | +--------+ + + + [...] | | | | | | [place] [address] | | | | | | [phone] | | | | | | | | +--------+ + + + + | 01/14/ | Appointment | Hematology & | Onc, Gen [address] | | | 2019 | | Oncology | [place] | | | | | | [place] [address] | | +--------+ + + + + documented as of this encounter Visit Diagnoses Not on filedocumented in this encounter"
--- OUTSIDE RECORDS SUMMARY | ~2019-12-27 | XMS | Encounter Summary ---
Demographics + + + | Address | [address] | | | [place] [address] | + + + | Home Phone | | + + + | Preferred Language | Unknown | + + + | Marital Status | | + + + | Anglican Affiliation | LUT | + + + [...] Team Providers + +------+ + | Care Care Analyst Name | Role | Phone | + +------+ + | Oz Rodriguez MD | PCP | | + +------+ + Encounter Details +--------+ + + + + | Date | Type | Department | Care Team | Description | +--------+ + + + + | 09/25/ | Pharmacy | Pharmacy @ [facility] | | | | 2020 | Visit | [address] | | | | | | [address] Mailcode: | | | | | | [facility] | | | | | | and [address], | | | | | | Building 2 | | | | | | [place], [place] | | | | | | [address] | | | +--------+ + + + [...] | | | | | Elise Gtz [place], | | | | | | [place] [address] | | | | | | [phone] | | | | | | | | +--------+ + + + + | 01/14/ | Appointment | Hematology & | Onc, Gen [address] | | | 2020 | | Oncology | [place], | | | | | | [place] [address] | | +--------+ + + + + documented as of this encounter Visit Diagnoses Not on filedocumented in this encounter"
--- OUTSIDE RECORDS SUMMARY | ~2019-12-27 | XMS | Encounter Summary ---
Demographics + + + | Address | [address] | | | [place] [address] | + + + | Home Phone [...] Team Providers + +------+ + | Care Molder Floor Name | Role | Phone | + [...] Clinics at S | [address] [facility] | | | | | [facility] [address] [place], | | | | | [facility] | [place] [address] | | | | | Health and Healing, | [phone] | | | | | [facility] | | | | | | [place], [place] | | | | | | [address] | | | | | | [phone] | | | +--------+ + + + [...] | | | | | | [place] [address] | | | | | | [phone] | | | | | | | | +--------+ + + + + | 01/14/ | Appointment | Hematology & | Onc, Gen [address] | | | 2019 | | Oncology | [place], | | | | | | [place] [address] | | +--------+ + + + + documented as of this encounter Visit Diagnoses Not on filedocumented in this encounter"
--- OUTSIDE RECORDS SUMMARY | ~2019-12-27 | XMS | Encounter Summary ---
Demographics + + + | Address | [address] | | | [place] [address] | + + + | Home Phone | | + + + | Preferred Language | Unknown | + + + | Marital Status | | + + + | Tenriism Affiliation | LUT | + + + [...] Team Providers + +------+ + | Care Auto Accessories Installer Name | Role | Phone | + +------+ + | Oz Rodriguez MD | PCP | | + +------+ + Encounter Details +--------+ + + + + | Date | Type | Department | Care Team | Description | +--------+ + + + + | 12/15/ | Fuel Cell Binder | [facility] | Daysi Mccauley MD | Myelofibrosis (HCC) | | 2020 | | Clinics at S | [address] | (Primary Dx); | | | | [facility] [address] | [place], | Neutropenic | | | | [facility] for | [place] [address] | splenomegaly ; Mild | | | | Health and Healing, | [phone] | protein-calorie | | | | Building [address] | | malnutrition (HCC) ; | | | | [place], [place] | | Other abnormal | | | | [address] | | tumor markers | | | | [phone] | | | +--------+ + + + [...] | | | | | | [place] [address] | | | | | | [phone] | | | | | | | | +--------+ + + + + | 01/14/ | Appointment | Hematology & | Onc, Gen [address] | | | 2019 | | Oncology | [place], | | | | | | [place] [address] | | +--------+ + + + + [...] | + + + + + | [facility] | [address] | [place] [address] | | | SERVICES, CORE | SHANNA [...] 5-6 weeks | | | 850 - 72789 6-7 weeks | | | 4000 - 129162 7-12 weeks | | | 85159 - 683109 12-16 weeks | | | 23334 - 678039 16-29 | | | weeks 1400 - 83183 | | | 29-41 weeks 940 - 86940 | | | This test has not been approved for use as a tumor marker in | | | males or females. | | + + + + + + + + | Performing | Address | City/State/Zipcode | Phone Number | | Organization | | | | + + + + + | [facility] | [address] | [place] [address] | | | SERVICES, CORE | SHANNA [...] | + + + + + | [email or web address] | [address] | [place] [address] | | | SERVICES, [place] FOR | | | | | HEALTH [...] [facility]IGAIL [facility]GERAL[facility] | [address] | [place] [address] | | | [facility] | | | | | HEALTH [...]
--- OUTSIDE RECORDS SUMMARY | ~2019-12-27 | XMS | Encounter Summary ---
Demographics + + + | Address | [address] | | | [place] [address] | + + + | Home Phone | | + + + | Preferred Language | Unknown | + + + | Marital Status | | + + + | Mandaeism Affiliation | LUT | + + + | Race | White | + + + | Ethnic Group | Not or | + + + Author + + + | Author | [facility] | + + + | Organization | [facility] | + + + | Address [...] Team Providers + +------+ + | Care Territory Sales Representative Name | Role | Phone | + +------+ + | Margarita Patterson | PCP | | + +------+ + Reason for Referral Consultation (Routine) + +---------+ + + + + | Status | Reason | Specialty | Diagnoses / | Referred By | Referred To | | | | | Procedures | Contact | Contact | + +---------+ + + + + | New Request | Other | Hematology | Diagnoses | [place], | [facility] | | | | Malignancy | MDS | Daysi Ramires MD | [facility] [address] | | | | | (myelodyspla | [address] | | | | | stic | [facility] | [place] for | | | | | syndrome) | Rd | Health and | | | | | (HCC) | [place], [place] | Healing, | | | | | Procedures | [address] | [address] | | | | | CONSULT TO | Phone: | [place], [place] | | | | | TRANSPLANT - | [phone] | [address] | | | | | BMT | Fax: | Phone: | | | | | | [phone] | [phone] | | | | | | | Fax: | | | | | | | [phone] | + +---------+ + + + + Encounter Details +--------+---------+ + + + | Date | Type | Department | Care Team | Description | +--------+---------+ + + + | 09/03/ | Office | [facility] | Daysi Mccauley MD | MDS (myelodysplastic | | 2020 | Visit | Clinics at S | [address] [facility] | syndrome) (HCC) | | | | [facility] [address] [place], | (Primary Dx) | | | | [facility] | [place] [address] | | | | | Health and Healing, | [phone] | | | | | Building [address] | | | | | | [place], [place] | | | | | | [address] | | | | | | [phone] | | | +--------+---------+ + + + [...] + + + | Blood Pressure | 169/70 | 09/04/2019 10:50 AM | | | | | PDT | | + + + + + | Pulse | 80 | 09/04/2019 10:50 AM | | | | | PDT | | + + + + + | Temperature | 36.7 C (98 F) | 09/04/2019 10:50 AM | | | | | PDT | | + + + + + | Respiratory Rate | 16 | 09/04/2019 10:50 AM | | | | | PDT | | + + + + + | Oxygen Saturation | 99% | 09/04/2019 10:50 AM | | | [...] of this encounter Patient Instructions Patient Instructions Kathrine Sheets, RN - 09/04/2019 12:00 PM PDTIt was a pleasure to see josiane gould in clinic today. These are the things that were discussed during your appointment today: Your blood pressure seems better since you started taking both the blood pressure medica tions - the Lorsartan and Hydrocholorthiazide. We would like you to continue taking both. Your blood counts are looking a little better and we're hoping that's because of the Nolan kenia. In the next few weeks, we can increase the dose of the Jakafi as long as you aren't feel ing any of the side effects. For the clinical trial, we have try the Jakafi for at least two months before we start t he clinical trial. We can't raise the dose of the Jakafi right now, but if her blood work continues to get better over the next few weeks, then increasing the dose may be possible. We would probably wait at least 6 weeks before we increase the dose. We hope to work closely with Dr. Santamaria on adjusting medication doses. The aches and pains are very common in patients with this disease. The most common side effects are fatigue, aches and pains, night sweats and weight loss. Sometimes older patients with low platelets can have a very slow bleed in the brain, cintia led a subdural hematoma and it can lead to some memory loss or cognitive impairment. We are wondering if we should image her brain again to see if that could be happening. We do not have to do it now but if things start to worsen or there is no improvement, we can re-visit doing imaging. There are no activity restrictions but you need to take things slowly, especially becaus e of the lightheadedness and dizziness. You are the best district associate judge of how much activity you can engage in each day. We are optimistic that she is responding to the medication. She seems to have improved since starting the Jakafi. We recommend meeting with the transplant team for a consult so you can get all of the in formation you need to make an informed decision. We can put in a referral for you to see e transplant team once the COVID situation has settled down and we can have everyone come to the visit in-person. Kathrine Sheets is Dr. Mccauley's Nurse Coordinator. If you have any questions, feel free to con tact her, her contact information is below. The best way to contact her is through legalPAD. Please note, Kathrine is off on Wednesdays, but there are other members of the Oncology care team who will be available to assist you. Kathrine Sheets, MSN- dev manager/Oncology Nurse Coordinator [facility] [place] | [facility] [place] [address] Clinic: [phone] For further questions or concerns: MyChart: We encourage patients to use legalPAD as the primary mode of communication. Feel fr ee to message us on legalPAD with any questions that may arise. Appointments/Questions/Follow-up: If you have any questions about appointments or need to c all to make a follow up appointment, please call the front desk admin at [phone]. Symptoms/Medical Questions: If you develop any symptoms or have any urgent medical question s, please call the Triage Nurse at [phone] or [phone] (Sunday - Sunday 8:30-4:30). After hours, please call [phone] and ask to have the BMT Person Barking Machine Feeder pag ed. Feedback: We value and appreciate your opinion and would like to learn from your experience at [facility]. Please complete the surveys that [facility] sends. Thank you! Prescriptions: Please allow 48-72 hours for prescription refills. Please make sure no refil ls remain prior to calling. If refills remain, please call the pharmacy for a refill. As your Oncology care team, we will care for your oncology specific health concerns. Other non-oncology health concerns will continue to be managed by your Primary Care Provider or ot her specialists involved in your care. documented in this encounter Progress Notes Daysi Mccauley MD - 09/04/2019 12:00 PM PDT Myelofibrosis Follow Up Visit : Fidelia Pickett is a 69 year old female who was referred to our clinic for management of newly diagnosed Myelofibrosis, pending genetic testing, in t he setting of pancytopenia and bone marrow abnormalities. History of Present Illness: Fidelia Pickett is presenting today for after new likely diagnosis of MF. The patient has a past medical history that includes HTN and hypothyroidism. The patient's hematological hi story dates back to 08/02/2019 where she was seen in the ED in [place], [place] for dyspnea. Fou nd to be pancytopenic including Hgb/HCT of 6.3/18.1 and platelet count at 42. She was transf used two units and discharged home with plan for follow-up and BMBx at [facility]. Subsequently admitted from 08/04-08/08/2019 at [facility] d/t pancytopenia. BMBx performed on 0. Marrow was hypercelllular (90%) with prominent fibrosis and 30% hematopoietic elements wi th increased reticulin fibrosis, Megakaryocytic hyperplasia/ atytpia, blasts less than 5%. T he findings favor a diagnosis of primary myelofibrosis but there is a possibility of myelody splastic syndrome. Was in local clinic yesterday, 08/18/2019, in order to discuss results of BMBx with Dr. Sherri chamberlain at [facility]. She had been doing well for the last few days up until when s he walked into the office. When she came to the office she seemed fine and had her blood tin wn but then suddenly became lightheaded and somewhat unresponsive but responded to being cristian nicholas supine. Rapid response was called. She was noted to have normal blood pressure pulse and saturation . She was sent down to ED for further resuscitation. Given one unit pRBCs. Pt and her has an extended conversation with Dr. Blood following this BM bx rega rding patient's prognosis and need for supportive transfusions. Today: Patient is present by herself due to COVTNVend visitor restrictions. Her and gladis blanchard are on the phone. Per the patient, she feels well today since starting Ruxulotinib Dizziness/lightheadedness has resolved. Has improved appetite, arthralgias in bilateral hips is improved, . Denies weight loss or night sweats. Review of Systems Constitutional: Positive for malaise/fatigue. HENT: Negative. Eyes: Negative. Respiratory: Negative. Cardiovascular: Negative. Gastrointestinal: Negative. Genitourinary: Negative. Musculoskeletal: Positive for joint pain. Skin: Negative. Neurological: Negative. Endo/Heme/Allergies: Negative. Psychiatric/Behavioral: Positive for memory loss. Current Medication List Name Sig ACETAMINOPHEN 500 [...] twice daily as needed. Administer with leslie gamboa Indications: Pain FLUCONAZOLE 200 MG TABLET Take [...] once daily. Past Medical History: Diagnosis Date HTN (hypertension) Hypothyroid Past Surgical History Procedure Laterality Date Cholecystectomy Family history: No family history of blood cancers. PE: Vitals: 09/04/19 1050 BP: 169/70 BP Location: Right upper arm Patient Position: Sitting Pulse: 80 Resp: 16 Temp: 36.7 C (98 F) TempSrc: Oral SpO2: 99% Weight: 102.1 kg (225 lb) PainSc: 0 - Zero Physical Exam Constitutional: She is oriented to person, place, and time and well-developed, well-nourish ed, and in no distress. No distress. HENT: Head: Normocephalic and atraumatic. Nose: Nose normal. Eyes: Conjunctivae are normal. Pulmonary/Chest: No respiratory distress. Neurological: She is alert and oriented to person, place, and time. Skin: No rash noted. Abd: Soft, NT, ND, BS positive Ext: No edema. Laboratory Hospital Outpatient Visit on 09/04/2019 Component Date Value Ref Range Status PHOSPHORUS, PLASMA (LAB) 09/04/2019 4.1 2.4 - 4.7 mg/dL Final MAGNESIUM,PLASMA 09/04/2019 1.8 1.6 - 2.6 mg/dL Final SPECIMEN COLLECTED, HELD 09/04/2019 Sample received with adeq label/volume to process Final GLUCOSE, PLASMA (LAB) 09/04/2019 221* 70 - 99 mg/dL Final BUN, PLASMA (LAB) 09/04/2019 21* 6 - 20 mg/dL Final CREATININE PLASMA (LAB) 09/04/2019 0.83 0.60 - 1.10 mg/dL Final EGFR - GREENLANDIC 09/04/2019 >60 >60 mL/min Final EGFR NON -GREENLANDIC 09/04/2019 >60 >60 mL/min Final SODIUM, PLASMA (LAB) 09/04/2019 136 136 - 145 mmol/L Final POTASSIUM, PLASMA (LAB) 09/04/2019 3.9 3.4 - 5.0 mmol/L Final CHLORIDE, PLASMA (LAB) 09/04/2019 98 97 - 108 mmol/L Final TOTAL CO2, PLASMA (LAB) 09/04/2019 28 21 - 32 mmol/L Final CALCIUM, PLASMA (LAB) 09/04/2019 9.8 8.6 - 10.2 mg/dL Final CALCIUM(ALB CORRECTED) 09/04/2019 10.5* 8.6 - 10.2 mg/dL Final BILIRUBIN TOTAL 09/04/2019 0.3 0.3 - 1.2 mg/dL Final TOTAL PROTEIN, PLASMA (LAB) 09/04/2019 7.7 6.4 - 8.2 g/dL Final ALBUMIN, PLASMA (LAB) 09/04/2019 3.1* 3.5 - 4.7 g/dL Final ALK PHOS 09/04/2019 140 53 - 141 U/L Final AST(SGOT) 09/04/2019 18 <=41 U/L Final ALT (SGPT) 09/04/2019 30 <=60 U/L Final ANION GAP 09/04/2019 10 4 - 11 mmol/L Final ANION GAP(ALB CORRECTED) 09/04/2019 12* 4 - 11 mmol/L Final POTASSIUM CMNT 09/04/2019 No Hemo Final BILI T CMNT 09/04/2019 No Hemo Final AST CMNT 09/04/2019 No Hemo Final BUN/CREATININE RATIO 09/04/2019 25 8 - 25 Final GLOBULIN LVL 09/04/2019 4.6* 2.3 - 3.5 gm/dL Final ALBUMIN/GLOBULIN RATIO 09/04/2019 0.7 0.7 - 2.8 Final WHITE CELL COUNT 09/04/2019 3.15* 3.50 - 10.80 K/cu mm Final RED CELL COUNT 09/04/2019 3.09* 4.00 - 5.20 M/cu mm Final HEMOGLOBIN 09/04/2019 9.1* 12.0 - 16.0 g/dL Final HEMATOCRIT 09/04/2019 25.3* 36.0 - 46.0 % Final MCV 09/04/2019 81.9 80.0 - 100.0 fL Final MCHC 09/04/2019 36.0 32.0 - 36.0 g/dL Final RDW SD 09/04/2019 37.2 35.1 - 46.3 fL Final PLATELET COUNT 09/04/2019 17* 150 - 400 K/cu mm Final MPV 09/04/2019 Final Not Measured NRBC% 09/04/2019 0.0 0.0 - 0.3 % Final NRBC# 09/04/2019 0.00 0.00 - 0.02 K/cu mm Final NEUTROPHIL # Prelim 09/04/2019 0.28* 1.80 - 7.70 K/cu mm Final Preliminary automated neutrophil result. Refer to Neutrophil # for final neutrophil resul t, which may differ from this preliminary value. NEUTROPHIL % 09/04/2019 8.3* 50.0 - 70.0 % Final LYMPHOCYTE % 09/04/2019 84.3* 18.0 - 42.0 % Final MONOCYTE % 09/04/2019 3.7 3.5 - 9.0 % Final EOSINOPHIL % 09/04/2019 0.0* 1.0 - 3.0 % Final BASOPHIL % 09/04/2019 0.0 0.0 - 2.0 % Final IG% 09/04/2019 2.8* 0.0 - 1.0 % Final ATYPICAL CELL % 09/04/2019 0.9* 0.0 % Final Fine chromatin, Dark blue cytoplasm, High N:C ratio NEUTROPHIL # 09/04/2019 0.26* 1.80 - 7.70 K/cu mm Final LYMPHOCYTE # 09/04/2019 2.66 1.00 - 4.80 K/cu mm Final MONOCYTE # 09/04/2019 0.12 0.10 - 0.90 K/cu mm Final EOSINOPHIL # 09/04/2019 0.00 0.00 - 0.50 K/cu mm Final BASOPHIL # 09/04/2019 0.00 0.00 - 0.10 K/cu mm Final IG# 09/04/2019 0.09 0.00 - 0.10 K/cu mm Final ATYPICAL CELLS # 09/04/2019 0.03 K/cu mm Final ANISOCYTOSIS 09/04/2019 2+(25-100cells/HPF) Final MICROCYTOSIS 09/04/2019 1+(10-25cells/HPF) Final PRODUCT DESCRIPTION 09/04/2019 -3 RED BLOOD CELLS LEUKOREDUCED IRRADIATED Final PRODUCT UNIT # 09/04/2019 [id number] Final UNIT ABO 09/04/2019 A Final UNIT RH 09/04/2019 NEG Final STATUS OF UNIT 09/04/2019 Presumed Transfused Final EXPIRATION DATE 09/04/2019 [id number] Final BLOOD TYPE BARCODE 09/04/2019 0600 Final BLOOD PRODUCT CODE 09/04/2019 [id number] Final ABO Group 09/04/2019 A Final Rh Type 09/04/2019 Negative Final Antibody Screen 09/04/2019 Negative Final BMBX 08/08/2019 13:45 Status: Final result Visible to patient: No (Not Released) Component Final Pathologic Diagnosis Bone marrow aspirate, clot section, core biopsy [...] udes other myeloproliferative/myelodysplastic neoplasms, lymphoma, metastasis, autoimmune m yelofibrosis/collagen vascular disease, and renal failure among others. Clinical correlation is recommended. Cytogenetic studies and high throughput sequencing for mutations found in m yeloid malignancies such as [id number] are recommended. ECHO Labs, imaging and pathology discussed with pt and family. Assessment and recommendations 1. Intermediate-2 risk MF: We have cautiously initiated Ruxulotinib at a low dose of 5 mg PO BID to see how she responds.Per her -Fidelia feels a lot better, her joint pains ar e better as is her energy and thinking. -We also discussed available clinical trials including the Phase III study of pacritinib vs BSC in MF pts with low platelets which may be an option for her in the future. -We discussed that she would like to transition care to Dr. Santamaria based on schedule/p reference. -We also discussed resuming prophylactic antimicrobials and supportive transfusions infecti on and symptom control. -All of patient's and family members questions were answered. RTC in 2 weeks. I am Mor Coates functioning as a scribe for Daysi Mccauley MD at 11:50 AM on 08/19/2019 I have reviewed and verified the above scribed note of my visit with this patient as record ed by Mor Coates. Daysi Mccauley, Seismograph Recorder, Section for Hematologic Malignancies. [facility] [place] documented in this enco unter Plan of [...] | | | | | | [place] [address] | | | | | | [phone] | | | | | | | | +--------+ + + + + | 01/14/ | Appointment | Hematology & | Onc, Gen [address] | | | 2019 | | Oncology | [place] | | | | | | [place] [address] | | +--------+ + + + + documented as of this encounter Visit Diagnoses + + | Diagnosis | + + | MDS (myelodysplastic syndrome) (HCC) - Primary Myelodysplastic syndrome, unspecified | + + documented in this encounter"
--- OUTSIDE RECORDS SUMMARY | ~2019-12-27 | XMS | Encounter Summary ---
Demographics + + + | Address | [address] | | | [place] [address] | + + + | Home Phone [...] Team Providers + +------+ + | Care Channel Worker Name | Role | Phone | + +------+ + | Oz Rodriguez MD | PCP | | + +------+ + Reason for Visit + + + | Reason | Comments | + + + | Refill Request | | + + + | Refill Request | | + + + Encounter Details +--------+--------+ + + + | Date | Type | Department | Care Team | Description | +--------+--------+ + + + | 12/14/ | Refill | [facility] | Daysi Mccauley MD | Refill Request; | | 2020 | | Clinics at S | [address] [facility] | Refill Request | | | | [facility] [address] [place], | | | | | [facility] | [place] [address] | | | | | Health and Healing, | [phone] | | | | | [facility] | | | | | | [place], [place] | | | | | | [address] | | | | | | [phone] | | | +--------+--------+ + + + [...] | | | | | | [place] [address] | | | | | | [phone] | | | | | | | | +--------+ + + + + | 01/14/ | Appointment | Hematology & | Onc, Gen [address] | | | 2019 | | Oncology | [place], | | | | | | [place] [address] | | +--------+ + + + + documented as of this encounter Visit Diagnoses Not on filedocumented in this encounter"
--- OUTSIDE RECORDS SUMMARY | ~2019-12-27 | XMS | Encounter Summary ---
Demographics + + + | Address | [address] | | | [place] [address] | + + + | Home Phone | | + + + | Preferred Language | Unknown | + + + | Marital Status | | + + + | Buddhism Affiliation | LUT | + + + [...] Team Providers + +------+ + | [employer] Name | Role | Phone | + +------+ + | Oz Rodriguez MD | PCP | | + +------+ + Encounter Details +--------+ + + + + | Date | Type | Department | Care Team | Description | +--------+ + + + + | 08/28/ | Pharmacy | [facility] | | | | 2020 | Visit | [address] | | | | | | [address] | | | | | | [place] [address] | | | | | | [phone] | | | +--------+ + + + [...] | | | | | | [place] [address] | | | | | | [phone] | | | | | | | | +--------+ + + + + | 01/14/ | Appointment | Hematology & | Onc, [address] | | | 2019 | | Oncology | [place] | | | | | | [place] [address] | | +--------+ + + + + documented as of this encounter Visit Diagnoses Not on filedocumented in this encounter"
--- OUTSIDE RECORDS SUMMARY | ~2019-12-27 | XMS | Encounter Summary ---
Demographics + + + | Address | [address] | | | [place] [address] | + + + | Home Phone [...] Team Providers + +------+ + | Care Delivery Motorcycle Driver Name | Role | Phone | + +------+ + | Margarita Patterson | PCP | | + +------+ + Reason for Visit + + + | Reason | Comments | + + + | Abnormal Lab Result | Hgb, HCT, platelets | + + + AUTH/CERT +--------+--------+ + + + + | Status | Reason | Specialty | Diagnoses / | Referred By | Referred To | | | | | Procedures | Contact | Contact | +--------+--------+ + + + + | | | | | | | +--------+--------+ + + + + Encounter Details +--------+ + + + + | Date | Type | Department | Care Team | Description | +--------+ + + + + | 08/04/ | Hospital | [facility] [address] | Jamie [place]te, | | | 2020 - | Encounter | [place] Mailcode: | [address] | | | | | [id number] | [address] | | | 08/07/ | | [place], | [place], [place] | | | 2020 | | [place] [address] | [address] | | | | | [phone] | [phone] | | | | | | | | | | | | Sheri Rosado MD | | | | | | [address] | | | | | | [address] | | | | | | [place], [place] | | | | | | [address] | | | | | | [phone] | | | | | | | [...] + + + | Blood Pressure | 156/72 | 08/08/2019 6:12 PM | | | | | PST | | + + + + + | Pulse | 87 | 08/08/2019 6:12 PM | | | | | PST | | + + + + + | Temperature | 37 C (98.6 F) | 08/08/2019 6:12 PM | | | | | PST | | + + + + + | Respiratory Rate | 16 | 08/08/2019 6:12 PM | | | | | PST | | + + + + + | Oxygen Saturation | 96% | 08/08/2019 6:12 PM | | | | | PST | | + + + + + | Inhaled Oxygen | - | - | | | Concentration | | | | + + + + + | Weight | 105.4 kg (232 lb 5.8 | 08/08/2019 4:30 AM | | | | oz) | PST | | + + + + + | Height | 167.4 cm (5' 5.91") | 08/05/2019 10:34 PM | | | | | PST | | + + + + + | Body Mass Index | 37.61 | 08/05/2019 10:34 PM | | | [...] + + documented as of this encounter Discharge Summaries Valarie Levi PA-C - 08/08/2019 1:33 PM PST [facility] Discharge Summary Discharging Provider: Valarie Levi PA-C Discharging Attending Physician: Sheri Rosado MD Hospital Stay: 3 day(s) PCP: JOSEFA Meng Admission Date: 08/05/2019 Discharge Date: 08/08/2019 Hospital Stay: 3 day(s) Reason for Admission: Pancytopenia 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 female with a history of HTN and hypothyroidism who was admitted with anemia and concern for acute leukemia. Peripheral blood showed 4% myeloid blasts. Bone marrow biopsy performed 08/07 to further clarify disease process and determine treatment plan . Patient was discharged with plan to follow up with a provider in clinic next week to discu ss results/plan. OUTPATIENT FOLLOW-UP: -Bone marrow biopsy results from 08/07 -Hemaglobin A1C- found to have elevated glucose levels, monitoring for possible T2DM -FLT3 and genetrails need to be obtained Sunday08/11/19 - pt's bone marrow was inaspirable t herefore peripheral blood sample needs to be sent SUMMARY OF PATIENT'S HOSPITALIZATION History of Present Illness: (from H&P) Fidelia Pickett is a 69 y/o w/ hx of HTN and hypothyroidism who was in her usual state of [facility] when she was noted to have pancytopenia and sent to [facility] for further evaluation. She wa s initially noted to be anemic when she went to donate blood on 07/24. She was feeling ok in itially with only fatigue but her symptoms worsened with some shortness of breath and chills so she sought care in her local ED on 08/01. At that time her Hct was 18.1 and she received 2U PRBCs. She was to see a local oncologist but at the advice of her daughter (an [facility] RN) she decided to drive from [place] on 08/04 to be seen in the [facility] ED. She is currently fee ling fatigued but otherwise ok. Her CBC here shows WBC 2.6, ANC 0.74, Crit 23.4 and plate let count 36K. Of note, she had a fever of 101.5 in the ED (undocumented) but by the time she arrived on he floor she was afebrile. 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 Pt offered ativan prior to the procedure but refused the medication. patient very anxious during the procedure and would benefit from ativan prior to next BM BX -Results: PENDING -Cytogenetics: PENDING -Genetrails: PENDING -LP: TBD Treatment -Chemotherapy regimen: TBD -TBD -Chemo Day: NA Patient is a potential candidate for transplant but must have dx first to determine risk . #Pancytopenia: -See supportive care #Supportive Care: Growth factor: no growth factors required at this time Labs: Continue to check CBC daily Transfusion parameters: -Transfuse PRBCs for HCT <21% if asymptomatic OR <24% if symptomatic -Transfuse PPH for platelet count <10,000 sooner PRN s/s bleeding. Cardiovascular: Baseline TTE 08/05- EF 65-70% #Hx of HTN -Continue Losartan 100 mg-HCTZ 25 mg Pulmonary: No acute issues GI: No acute issues /Renal: #Risk for TLS -Allopurinol -IV fluids not indicated with low counts Endocrine: #Hx of hypothyroidism -Continue synthroid 25 mcg daily. #Hyperglycemia: elevated blood glucose on labs, no hx of DM -Hemaglobin A1C PENDING Psych: #Hx of anxiety -Continue zoloft 50 mg daily Infectious Disease: #Isolated fever: noted in ED prior to transfer, afebrile upon arrival to floor -Bld cxs NGTD -CXR 08/06 negative #Hx of shingles: in May 2019, treated with famvir #Prophylaxis: Bacterial: None at this time Fungal: None at this time Viral: Acyclovir Fluid/Nutrition/Lytes: #Nutrition: Current diet -- Regular No Jihan's yogurt or Kefir. #Fluid: not required at this time #Lytes: -Continue to check chemistries at each visit -Replace per supportive care protocol. #Obesity, Class II: -monitor Discharge Medications: Medication List START taking these medications acyclovir 800 mg Tab Commonly known as: ZOVIRAX Take 1 tablet by mouth once daily. Indications: viral infection prevention Start taking on: August 09, 2019 allopurinoL 300 mg Tab Commonly known as: ZYLOPRIM Take 1 tablet by mouth once daily. Indications: an increase in uric acid due to cancer chem otherapy Start taking on: August 09, 2019 celecoxib 100 mg Cap Commonly known as: CELEBREX Take 1 capsule by mouth twice daily as needed. Administer with food. Indications: Pain CONTINUE taking these medications hydroCHLOROthiazide 25 mg Tab Commonly known as: HYDRODIURIL Take 25 mg by mouth once daily. levothyroxine 25 mcg Tab Take 25 mcg by mouth before breakfast. losartan 100 mg Tab Commonly known as: COZAAR Take 100 mg by mouth once daily. sertraline 50 mg Tab Commonly known as: ZOLOFT Take 50 mg by mouth once daily. Allergies: No Known Allergies Code Status: Full POLST completed: no Additional Instructions: Diet Instructions Diet Type: Regular diet- There are no restrictions to your diet. You may eat or drink wha tever you prefer, though healthy food choices are recommended. - Activity Instructions Activity Instructions: No activity restrictions Additional Instructions Over the counter Medication - use as needed: Benadryl (Diphenhydramine) 25 mg by mouth every 6 hours as needed for sleep, itching, nause a or restlessness. Antacids- One ounce or one tablet every 2-4 hours as needed for heartburn. Call you doctor if heartburn persists or isn't relieved with this medication. Laxative- Senokot-S one to two twice a day as needed. This is a medication you can use to soften your stools and decrease constipation. Call your doctor if the above measures do not relieve your constipation. *Avoid all enemas and suppositories* Anusol Cream- Apply a small amount to external rectal area as needed for hemorrhoidal disco mfort. Do not apply internally. Call you doctor for persistent discomfort, bleeding or preeti n. Lubriderm lotion- apply to skin twice a day as needed to treat dry skin Eucerin Cream apply to skin twice a day as needed to treat dry skin. Sunscreen as needed SPF 15 or greater. Apply to sun-exposed skin before exposure to d irect sunlight or outside activities. Regarding Pain Medication or any sedating medications (like nausea or anxiety meds): You are advised to not drive, operate heavy equipment, or consume alcohol while on prescrip tion opioid pain medication. Take a stool softener (like Senna Plus) while taking opioid pain medication in order to pre vent constipation. Skin Care - Assess daily for signs or symptoms of rash, redness, irritation. - No straight edge razor to be used if platelets are less than 50,000. - Apply Lubriderm or Eucerin cream to skin twice daily and as needed to treat dry skin. - Avoid direct sun exposure and if necessary use SPF or greater sunscreen. Oral Care - Assess daily for redness, swelling, sores or bruising in mouth. - Extra soft toothbrush. - If platelets are less than 50,000, do not use a toothbrush but instead use toothettes. - If platelets are less than 100,000, do not floss. - Rinse mouth with 1-2 ounces saline solution 4 times daily (after meals & at bedtime). Follow Up: Future Appointments Provider Department Dept Phone Center 08/11/2019 3:10 PM BMT INFUSION Hematology/Medical Oncology at [facility] [phone] [facility] 08/14/2019 2:50 PM Pod A Hematology/Medical Oncology at [facility] [phone] [facility] Subjective: Feels well. Had a lot of questions regarding future treatment plans. Ready to be back home. Denies N/V, SOB, CP Objective: Last Vitals: BP 127/51 (BP Location: Right upper arm, Patient Position: Lying on back) | P ulse 80 | Temp 36.9 C (98.4 F) (Oral) | Resp 16 | Ht 1.674 m (5' 5.91") | Wt 105.4 k g (232 lb 5.8 oz) | SpO2 97% | BMI 37.61 kg/m | BSA 2.21 m 24 Hour Vital Min/Max: Systolic (24hrs), Av , Min:110 , Max:127 Diastolic (24hrs), Av, Min:50, Max:66 Pulse Min: 59 Max: 80 Temp Min: 36.8 C (98.2 F) Max: 37.4 C (99.3 F) Resp Min: 16 Max: 18 SpO2 Min: 97 % Max: 99 % Intake/Output Summary (Last 24 hours) at 08/08/2019 1333 Last data filed at 08/08/2019 1300 Gross per 24 hour Intake 1990 ml Output 1665 ml Net 325 ml Physical Exam: General: This is an adult female in no acute distress. HEENT: PERRL. Sclerae anicteric. Mucosa pink and moist without erythema or exudate. Skin: No rash, lesions noted. Chest: Lungs clear to auscultation bilat. CV: RRR, no murmurs. Abdomen: S/NT/ND with NABS. No HSM appreciated. Extremities: Pulses strong and equal bilaterally. Trace edema NeuroPsych: Alert and oriented x 3. Grossly nonfocal exam. CVC: Picc placed left arm -dressing in place Laboratory Results: Recent Labs 08/06/19 0357 08/06/19 2327 08/07/19 2354 NA 141 139 141 K 4.0 3.6 3.9 CL 109* 107 107 BICARB 26 26 27 BUN 14 14 14 CR 0.68 0.61 0.75 GLU 168* 179* 163* CA 9.3 8.8 8.8 AST 11 11 15 ALT 16 18 20 AP 53 52* 62 TBILI 0.4 0.3 0.4 TP 6.8 6.7 6.9 ALB 3.0* 3.0* 3.1* Recent Labs 08/06/19 0356 08/06/19 2327 08/07/19 2354 WBC 2.47* 2.18* 2.16* RBC 2.25* 2.54* 2.53* HB 6.9* 7.8* 7.4* HCT 19.8* 22.2* 21.9* PLT 29* 28* 26* NEUTROPERC 31.0* 26.7* 27.3* LYMPHPERC 57.5* 67.2* 60.2* MONOPERC 4.4 6.0 10.6* BASOPERC 0.0 0.0 0.5 EOSPERC 0.0* 0.0* 0.0* NARCISO Davis PA-C [facility] [address] [facility] Mailcode: [id number] [place] [address] Associated attestation - Sheri Rosado MD - 08/09/2019 11:04 PM PSTCenter for Hematolog ic Malignancies - Leukemia Attending Discharge Note Attestation Date of service: 08/08/2019 I personally saw this patient, performed the [place] elements of the physical examination, and formulated the assessment and plan with the advanced practice provider, Valarie Levi. Inte rval history, current medications and laboratories were reviewed. My direct observations and changes are noted below. Identification: 69 Y woman admitted with pancytopenia concerning for bone marrow dysfunctio n Flow Cytometry resulted late in the day showing 4% myeloid blasts Discussed potential diagnosis, treatment options. Daughter is a geriatric RN here. Fidelia wants to pursue treatment near home. However, daught er interested in establishing diagnosis here and have treatment guidance from [facility]. Subjective: Discussed clinical trials to consider if this is MDS vs. Acute leukemia. Patient and aubrey griffith want to consider trials and obtain more info. Consents done BM Bx performed after. Unable to obtain aspirate. D/C'd before FLT3 drawn. She is returning to [facility] for labs and transfusion on Sunday. Will have FLT3 drawn and expedited on Sunday. Will email [facility] Leukemia physicians to arrange outpatient follow-up. Objective: Exam: Gen: appears well. 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 Cores sent - 08/10: will present to [facility] for labs and transfusion. To have FLT3 drawn # Thrombocytopenia, Plt 20-30s - Lives far, likely unable to receive platelet transfusions immediately if indicated - We discussed staying in the area until BM Bx resulted and care established with [facility] josé sweeney. Unfortunately, their daughter (in [place]) has kids who are sick and so they chose to go back home. plans to drive her back on Sunday. # Hyperglycemia - HbA1C - pending # HTN - continue home meds # Anxiety - continue home meds Please refer to the SAMUEL's note for today for details of assessment and plan. Sheri Rosado MD [facility] [address] [facility] [address]: [id number] [place] [address] documented in this encounter Discharge Instructions Discharge Instr - AVS First Page Valarie Levi PA-C - 08/08/2019 1:31 PM PSTNotify [facility] triage clinic IMMEDIATELY for the following issues. Call or after hours/holidays and ask to page "BMT person on c all". - If temp is greater than 38 degrees Celsius or 100.4 degrees Fahrenheit - Inability to drink at least 2 L or more of liquids per day - Nausea/vomiting that is unresponsive to antiemetic medications - More than 3 loose stools in a 24 hour period - Development of rash - Any evidence of new or increased bleeding. -Or if any new and/or progressive/worsening signs or symptoms develop. If you are unable to get ahold of the BMT clinic and/or BMT person on-call, go directly to the closest emergency department and/or call 911. Discharge Instr - Activity Valarie Levi PA-C - 08/08/2019 1:30 PM PSTActivity Instru ctions: No activity restrictionsElectronically signed by Valarie Levi PA-C at 0 1:30 PM PST Discharge Instr - Diet Valarie Levi PA-C - 08/08/2019 1:31 PM PSTDiet Type: Regular diet- There are no restrictions to your diet. You may eat or drink whatever you prefer, tho ugh healthy food choices are recommended. Discharge Instr - Diagnoses Valarie Levi PA-C - 08/08/2019 1:26 PM PSTAnemia Thrombocytopenia Hypertension Discharge Instr - Procedures Valarie Levi PA-C - 08/08/2019 1:28 PM PSTBone marrow b iopsy Discharge Instr - Hospital Course Valarie Levi PA-C - 08/08/2019 1:30 PM PSTYou were admitted to [facility] with low blood counts. You were found to have a blood cancer, the final di agnosis is to be determined by the results of the bone marrow biopsy. You are safe for disch arge with close clinic follow up. Electronically signed by Valarie Levi PA-C at 020 1:30 PM PST Discharge Instr - Electronic Signature Valarie Levi PA-C - 08/08/2019 1:31 PM PSTAft er Visit Summary Signature Electronically signed by: Valarie Levi PA-C, 08/08/2019 at 1:31 PMElectronically erick d by Valarie Levi PA-C at 08/08/2019 1:31 PM PST Additional Instructions Valarie Levi PA-C - 08/08/2019 1:31 PM PSTOver the counter M edication - use as needed: Benadryl (Diphenhydramine) 25 mg by mouth every 6 hours as needed for sleep, itching, nause a or restlessness. Antacids- One ounce or one tablet every 2-4 hours as needed for heartburn. Call you doctor if heartburn persists or isn't relieved with this medication. Laxative- Senokot-S one to two twice a day as needed. This is a medication you can use to soften your stools and decrease constipation. Call your doctor if the above measures do not relieve your constipation. *Avoid all enemas and suppositories* Anusol Cream- Apply a small amount to external rectal area as needed for hemorrhoidal disco mfort. Do not apply internally. Call you doctor for persistent discomfort, bleeding or preeti n. Lubriderm lotion- apply to skin twice a day as needed to treat dry skin Eucerin Cream apply to skin twice a day as needed to treat dry skin. Sunscreen as needed SPF 15 or greater. Apply to sun-exposed skin before exposure to dire ct sunlight or outside activities. Regarding Pain Medication or any sedating medications (like nausea or anxiety meds): You are advised to not drive, operate heavy equipment, or consume alcohol while on prescrip tion opioid pain medication. Take a stool softener (like Senna Plus) while taking opioid pain medication in order to pre vent constipation. Skin Care - Assess daily for signs or symptoms of rash, redness, irritation. - No straight edge razor to be used if platelets are less than 50,000. - Apply Lubriderm or Eucerin cream to skin twice daily and as needed to treat dry skin. - Avoid direct sun exposure and if necessary use SPF or greater sunscreen. Oral Care - Assess daily for redness, swelling, sores or bruising in mouth. - Extra soft toothbrush. - If platelets are less than 50,000, do not use a toothbrush but instead use toothettes. - If platelets are less than 100,000, do not floss. - Rinse mouth with 1-2 ounces saline solution 4 times daily (after meals & at bedtime). Arpit York RN - 08/08/2019Check your oral temperature twice a day and whenever you fee l like you may have chills or a fever. Drink at least 2 Liters of fluids per day to prevent dehydration. Shower daily and WASH YOUR HANDS frequently. Make sure to brush your teeth at least 2x/day and as needed after meals (if your platelets are <50K, use a soft toothbrush and do not floss). Cover your central line when showering/bathing (avoid swimming pools, hot tubs, saunas, and whirlpools until your CVC is removed). Wear a mask when around large groups of people. NO SICK CONTACTS! If this cannot be avoided and you suspect someone may be even mildly ill, have them wear a mask or wear one yourself. Stay active! Perform short periods of activity, then make sure to take time for rest. Call if you have any questions! BMT CLINIC ([facility]) during clinic hours (M-F 8:30-4:30): [phone] BMT CLINIC ([facility]) at all other times: [phone] 14K[address]: [phone] How was your stay with us? Is there anything we could have done differently to improve your time here on 14K? documented in this encounter Medications at Time of Discharge [...] documented as of this encounter Progress Notes Sheri Rosado MD - 08/08/2019 6:18 PM PSTFormatting of this note might be different fr om the original. Consents: Fidelia Pickett was seen today during which time we discussed A Master Protocol for Biomarker -Based Treatment of AML (The Beat AML Trial) - eIRB 58934. The patient expressed interest in learning more about the trial and I provided detailed information. The consent document wa s reviewed and the voluntary nature of participating in a clinical trial was emphasized. Al l risks, benefits and alternatives to participating in the trial were also presented to the patient. We were discussing the master protocol screening consent at this time. Once a sub study is selected the patient will be provided a main study consent for that study. Performance status of this patient is: ECOG 1 Childbearing status was discussed: The patient is not considered to be of childbearing potential. The patient asked valid questions and responses were provided. The patient verbalized unde rstanding of the details of the trial and the content of the consent. The patient and I si gned the consent form prior to the start of any study procedures. For consent and screening done on same day, all study-related procedures were done after consent was obtained. A copy of signed consent was provided to the patient. # INCLUSION CRITERIA (All must be YES) YES NO 1 Age 18 years or older at the time of diagnosis X 2 Able to understand and provide written informed consent X 3 Previously untreated AML with no prior treatment other than hydroxyurea (Group A), OR rel apsed or refractory AML according to WHO (Group B). No prior therapy with hypomethylating ag ents. X # EXCLUSION CRITERIA (All must be NO) YES NO 1 Isolated myeloid sarcoma X 2 Acute promyelocytic leukemia X 3 Symptomatic central nervous system (ENVIRONMENTAL SCIENCE TECHNICIAN) involvement by AML X 4 Signs of leukostasis requiring urgent therapy X 5 Disseminated intravascular coagulopathy with active bleeding or signs of thrombosis X 6 Psychological, familial, social, or geographic factors that potentially hamper compliance with study treatment and follow-up X 7 Any condition that would preclude the patient participating in the trial or confound inte rpretation of the results X YES NO PI confirms patient is eligible: X Fidelia Pickett was seen today during which time we discussed Phase 1b, multi-arm, open-label study of ZYV001 and/or [id number] in combination with decitabine in patients with acute myeloid leukemia or high risk myelodysplastic syndrome - eIRB 33367. The patient expr essed interest in learning more about the trial and I provided detailed information. The co nsent document was reviewed and the voluntary nature of participating in a clinical trial wa s emphasized. All risks, benefits and alternatives to participating in the trial were also presented to the patient. Performance status of this patient is: ECOG 1 Childbearing status was discussed: The patient is not considered to be of childbearing potential. The patient asked valid questions and responses were provided. The patient verbalized unde rstanding of the details of the trial and the content of the consent. The patient and I si gned the consent form prior to the start of any study procedures. For consent and screening done on same day, all study-related procedures were done after consent was obtained. A copy of signed consent was provided to the patient. Sas Programmer confirms they have reviewed inclusion and exclusion criteria. Sheri Rosado MD [facility] [address] [facility] Mailcode: [id number] [place] [address] Jennifer Fisher R N - 08/08/2019 5:16 PM PST Met with patient up on 14K in his room to introduce myself as Leukemia Nurse Navigator for [facility] for Hematologic Malignancies and explain my role of nurse navigation and conduct general assessment/review of history. Pt's at the bedside as well. We discussed the following: Tell us what you understand about your diagnosis/plan of care: Either she has MDS vs acute leukemia. BMBX done today and she is to meet with a provider next week to discuss results, provider TBD. She is being screened for some clinical trials, depending on what the results show. She is interested in proceeding with a clinical trial and has questions about the lo gistics of travel, but the study does help compensate for that, along with lodging. Fidelia in dicated the "waiting" for a diagnosis is challenging and is anxious to know what her ultimat e dx and treatment plan will be. We discussed the logistics of our outpt clinic and what to expect when she comes for appts next week, although no appts have yet been scheduled. Explained that they will receive a di scharge summary before she leaves today with a lab/infusion appt for Sunday, at least that i s the plan being discussed. Pt's indicated they were told she did have an appt on at 3pm. What specific questions do you have (if any)? Fidelia inquired about often she would be comin g to the outpt clinic. Explained that depends on the specific trial, but generally we like to have pt's labs checked twice weekly, if not more, until counts are stable. Again, the fr equency could be dictated by the trial and/or provider preference. Have you received any treatment for your cancer yet? If so, where, when and what type of t reatment? No, other than blood products Are you interested in clinical trials? Yes Where do you usually receive medical treatment (for example: hospital system, imaging, lab, etc)? [facility] [employer] [facility] or [facility] [employer] Treatment Hx: TBD Symptom Assessment: Around time of diagnosis, she was having fatigue with noted shortness o f breath and some chills when she went to an OSH, then told to come to [facility] for further eval uation and admitted. Since admission, she still has some fatigue, but is getting PRBCs when needed to help combat that, getting 1 unit today prior to discharge. She had her bmbx toda y as well. Past Medical History: Diagnosis Date HTN (hypertension) Hypothyroid Past Surgical History Procedure Laterality Date Cholecystectomy Current Medication List Name Sig ACYCLOVIR 800 MG TABLET Take 1 tablet by mouth once daily. Indications: viral infection pre vention ALLOPURINOL 300 MG TABLET Take 1 tablet by mouth once daily. Indications: an increase in ur ic acid due to cancer chemotherapy CELECOXIB 100 MG CAPSULE Take 1 capsule by mouth twice daily as needed. Administer with leslie d. Indications: Pain HYDROCHLOROTHIAZIDE 25 MG TABLET Take 25 mg by mouth once daily. LEVOTHYROXINE 25 MCG TABLET Take 25 mcg by mouth before breakfast. LOSARTAN 100 MG TABLET Take 100 mg by mouth once daily. SERTRALINE 50 MG TABLET Take 50 mg by mouth once daily. No Known Allergies Family History: No history of cancer, but pt did not elaborate much on this subject at this time. Social History: Never Smoker and never used smokeless tobacco Alcohol use- generally about 3/week No illicit drug use Pt and her live on a farm outside [place]. Family/Support System: Supportive , Sky. Daughter, who is an RN at [facility] has been coming to see her often. She has young children at home and knows to not have them around the pt if they are sick. Once discharged, who will come with you/drive you to your appts? Family- Sky and/or ruperto hter How far do you live from treatment facility and do you forsee this being an issue during tr eatment? Per pt/, they live about 3-1/2hrs away, but have a daughter who lives in [facility], and are willing to stay in a hotel during tx, if xu for by clinical trial. Pt expr essed her desire to get any treatment locally, if possible, when on trial. That will have t o be further discussed once we know the plan. Will you need transportation assistance/housing assistance during course of your treatment? Yes, for housing, but they have a list of discounted hotels on hand. Imaging (if applicable): in EPIC Pathology: awaiting bmbx results done 08/07 08/05: Peripheral blood, flow cytometric analysis: - Approximately 4% myeloid blasts - Immunophenotype: partial CD7, dim CD11b, dim CD13, CD33, CD34, CD38, CD117, HLA-DR Test Results/Molecular Studies: pending Procedures: 08/07 bmbx done, 08/05- PICC placed L UE Care Everywhere: YES Needs Assessment - Social Work/CM: SW following - Parts Counter Salesperson: not at this time - Financial Counseling: pt did not indicate need at this time - Clinical Trials: Yes, pt being screening for [employer] and BEAT AML - Insurance Barriers: none. She has medicare with supplemental coverage Origin of Referral: pt came in through [facility] ED Patient Care team: PCP- JOSEFA Lewis Local Oncologist (if applicable)- MARIUM Patient appreciated the discussion and information received today. Provided patient with a NN packet and my business card, indicating that patient/ can contact me at any time should questions arise with their care. I will continue to follow patient's care plan to pr ovide ongoing support, education, help with transitions of care, and ensure an overall posit agus patient experience. 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 States she is a little short of breath with ambulat ion. Denies CP or SOB. Hoping to return home as soon as possible. Objective: Last Vitals: BP 110/50 (BP Location: Right upper arm, Patient Position: Sitting) | Pulse 6 3 | Temp 37.1 C (98.8 F) (Oral) | Resp 16 | Ht 1.674 m (5' 5.91") | Wt 106.7 kg (235 lb 3.7 oz) | SpO2 98% | BMI 38.08 kg/m | BSA 2.23 m 24 Hour Vital Min/Max: Systolic (24hrs), Av , Min:110 , Max:130 Diastolic (24hrs), Av, Min:50, Max:70 Pulse Min: 57 Max: 69 Temp Min: 36.3 C (97.3 F) Max: 37.1 C (98.8 F) Resp Min: 16 Max: 18 SpO2 Min: 97 % Max: 100 % Intake/Output Summary (Last 24 hours) at 08/07/2019 1822 Last data filed at 08/07/2019 1331 Gross per 24 hour Intake 1125 ml Output 1305 ml Net -180 ml Physical Exam: General: This is an adult female in no acute distress. HEENT: PERRL. Sclerae anicteric. Mucosa pink and moist without erythema or exudate. Skin: No rash, lesions noted. Chest: Lungs clear to auscultation bilat. CV: RRR, no murmurs. Abdomen: S/NT/ND with NABS. No HSM appreciated. Extremities: Pulses strong and equal bilaterally. Trace edema NeuroPsych: Alert and oriented x 3. Grossly nonfocal exam. CVC: Picc placed left arm -dressing in place Laboratory Results: Recent Labs 08/05/19192808/06/197 08/06/19 2327 NA 135* 141 139 K 3.7 4.0 3.6 CL 103 109* 107 BICARB 25 26 26 BUN 20 14 14 CR 0.67 0.68 0.61 GLU 296* 168* 179* CA 9.5 9.3 8.8 AST 14 11 11 ALT 21 16 18 AP 65 53 52* TBILI 0.4 0.4 0.3 TP 7.9 6.8 6.7 ALB 3.6 3.0* 3.0* Recent Labs 08/05/19192808/06/19 03508/06/19 2327 WBC 2.40* 2.47* 2.18* RBC 2.69* 2.25* 2.54* HB 8.0* 6.9* 7.8* HCT 23.4* 19.8* 22.2* PLT 36* 29* 28* NEUTROPERC 30.7* 31.0* 26.7* LYMPHPERC 65.8* 57.5* 67.2* MONOPERC 0.0* 4.4 6.0 BASOPERC 0.0 0.0 0.0 EOSPERC 0.0* 0.0* 0.0* Meds: Reviewed on rounds, see current MAR for medication list SUMMARY OF PATIENT'S HOSPITALIZATION History of Present Illness: (from H&P) Fidelia Pickett is a 69 y/o w/ hx of HTN and hypothyroidism who was in her usual state of [facility] when she was noted to have pancytopenia and sent to [facility] for further evaluation. She wa s initially noted to be anemic when she went to donate blood on 07/24. She was feeling ok in itially with only fatigue but her symptoms worsened with some shortness of breath and chills so she sought care in her local ED on 08/01. At that time her Hct was 18.1 and she received 2U PRBCs. She was to see a local oncologist but at the advice of her daughter (an [facility] RN) she decided to drive from [place] on 08/04 to be seen in the [facility] ED. She is currently fee ling fatigued but otherwise ok. Her CBC here shows WBC 2.6, ANC 0.74, Crit 23.4 and plate let count 36K. Of note, she had a fever of 101.5 in the ED (undocumented) but by the time she arrived on he floor she was afebrile. Hospitalization History: Hematology: #Hematologic Malignancy: Pancytopenia w/ 4% myeloid circulating blasts: c/f acute leukemia Pertinent Diagnostics: -BM Bx to be completed on 08/07 when flow available to predetemine if can be on study -Results: -Cytogenetics: -Genetrails -LP: TBD Treatment -Chemotherapy regimen: TBD -TBD -Chemo Day: NA Patient is a potential candidate for transplant but must have dx first to determine risk . #Pancytopenia: -See supportive care #Supportive Care: Growth factor: no growth factors required at this time Labs: Continue to check CBC daily Transfusion parameters: -Transfuse PRBCs for HCT <21% if asymptomatic OR <24% if symptomatic -Transfuse PPH for platelet count <10,000 sooner PRN s/s bleeding. Cardiovascular: Baseline TTE 08/05- EF 65-70% #Hx of HTN -Continue Losartan 100 mg-HCTZ 25 mg Pulmonary: No acute issues GI: No acute issues /Renal: #Risk for TLS -Allopurinol -IV fluids not indicated with low counts Endocrine: #Hx of hypothyroidism -Continue synthroid 25 mcg daily. Psych: #Hx of anxiety -Continue zoloft 50 mg daily Infectious Disease: #Isolated fever: noted in ED prior to transfer, afebrile upon arrival to floor -Bld cxs NGTD -CXR 08/06 negative #Hx of shingles: in May 2019, treated with famvir #Prophylaxis: Bacterial: Levofloxacin when neutropenic -For first neutropenic fever, [place] cx, CXR, d/c Levofloxacin and begin cefepime for empiric broadspectrum coverage. Fungal: TBD Viral: Acyclovir Fluid/Nutrition/Lytes: #Nutrition: Current diet -- Regular No Jihan's yogurt or Kefir. #Fluid: not required at this time #Lytes: -Continue to check chemistries daily -Replace per supportive care protocol. #Obesity, Class II: -monitor Disposition: To be determined by diagnosis. Follow-up appointments requested for Mon/Thurs next week. NARCISO Davis PA-C [facility] [id number] Mailcode: [id number] [place] [address] Associated attestation - Sheri Rosado MD - 08/08/2019 7:52 PM PSTCenter for Hematolog ic Malignancies - Leukemia Attending Daily Progress Note Attestation Date of service: 08/07/2019 I personally saw this patient, performed the [place] elements of the physical examination, and formulated the assessment and plan with the advanced practice provider, Valarie Levi. Inte rval history, current medications and laboratories were reviewed. My direct observations and changes are noted below. Identification: 69 Y woman admitted with pancytopenia concerning for bone marrow dysfunctio n Flow Cytometry resulted late in the day showing 4% myeloid blasts Discussed potential diagnosis, treatment options. Daughter is a geriatric RN here. Fidelia wants to pursue treatment near home. However, daught er interested in establishing diagnosis here and have treatment guidance from [facility]. Subjective: Discussed clinical trials to consider if this is MDS vs. Acute leukemia. Patient and rcban d want to consider trials and obtain more info. Objective: Exam: Gen: appears well. Sclera anicteric, conjunctiva Regular rate rhythm Clear to auscultation Abd soft, NT, ND No peripheral edema Pertinent labs: reviewed Plan: # Pancyctopenia, with circulating atypicals - Flow cytometry - 4% myeloid blasts - BM Bx tomorrow # Thrombocytopenia, Plt 20-30s - Lives far, likely unable to receive platelet transfusions immediately if indicated # Hyperglycemia - HbA1C - pending # HTN - continue home meds # Anxiety - continue home meds Please refer to the SAMUEL's note for today for details of assessment and plan. Sheri Rosado MD [facility] [address] Mailcode: [id number] [place] [id number] McDorothea Zamarripa MSW,MIMEOGRAPH OPERATOR - 08/07/2019 1:17 PM PSTReferral received from: Inpati ent team Purpose of the Interview: Introduce role and responsibilities Current Living Situation: Fidelia lives in [place], which is outside of [place], with her Sky. 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 Current Social Supports: Sky appears to be one of Fidelia's primary supports. In addition , her daughter was present today. She is a geriatric nurse here, and has been in her room o n 14K as much as she can possibly manage. 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 They did not identify finances as an issue on this date. She has medicar e with supplemental coverage Activities / Spirituality: Denied any spiritual preferences on this date. Medical issues: Fidelia came to [facility] to be evaluated for pancytopenia. She will likely have a bone marrow biopsy today. IT IS IMPORTANT TO NOTE: Fidelia, her and her daughter harkins ve stated that getting care close to home is very important to her. Therefore, enrolling he r in clinical trials that will require her to be at [facility] often many not be the best choice f or her. PCP: Dr. Jared Blood is the local oncologist in her area. Mental health history: did not assess on this date Substance use History: did not assess on this date. Patient s understanding of Illness/ reason for hospitalization: Fidelia and her family are still waiting to learn about her diagnosis and treatment plan. Patient s post hospital care plan: Fidelia has expressed a strong desire to get her care as close to home as possible. Advanced Directive/POA/HCR: Did not discuss on this date Recommendations/Plans/Referrals: SW did a more abbreviated assessment on this date. Fidelia was very engaged with SW, but did appear to be overwhelmed. She said that "the waiting" is very challenging. Fidelia and her family stated that when more is known about her care plan, it is important to her to get care closer to home if that is possible. Please consider this when offering clinical trials. SW will follow and provide support as needed NHI Carbajal, MIMEOGRAPH OPERATOR, OSW-C [facility] Pager [phone] Vonda Lopes - 08/06/2019 11:16 AM PSTTransthoracic echocardiogram completed. Final report to follow. documented in this encount er Plan of Treatment +--------+ + + + [...] | | | | | | [address] [place], | | | | | | [place] [address] | | | | | | [phone] | | | | | | | | +--------+ + + + + | 01/14/ | Appointment | Hematology & | Onc, Gen [address] | | | 2019 | | Oncology | [address] [place], | | | | | | [place] [address] | | +--------+ + + + + + + +--------+ + + | Name | Type | Priori | Associated Diagnoses | Order Schedule | | | | ty | | | + + +--------+ + + | MANUAL DIFFERENTIAL | Lab - | Routin | | 08/05/2019 until | | | [facility] | e | | discontinued, 1 | | | Performable | | | completed | | | s | | | | + + +--------+ + + | URINE, MICROSCOPIC | Lab | Routin | | As Needed for 1 | | EXAM | | e | | Occurrences starting | | | | | | 08/05/2019 | + + +--------+ + + | X-RAY CHEST 2 VIEW | Imaging | Routin | | As Needed for 1 | | | | e | | Occurrences starting | | | | | | 08/05/2019 | + + +--------+ + + | UA, DIPSTICK ONLY | Lab | Routin | | As Needed for 1 | | | | e | | Occurrences starting | | | | | | 08/05/2019 | + + +--------+ + + | URINE, MICROSCOPIC | Lab | Routin | | As Needed for 1 | | EXAM | | e | | Occurrences starting | | | | | | 08/05/2019 | + + +--------+ + + | CULTURE, URINE BACTI | Lab | Routin | | As Needed for 1 | | | | e | | Occurrences starting | | | | | | 08/05/2019 | + + +--------+ + + | CULTURE, SPUTUM | Lab | Routin | | As Needed for 1 | | | | e | | Occurrences starting | | | | | | 08/05/2019 | + + +--------+ + + | MANUAL DIFFERENTIAL | Lab - | Routin | | 08/06/2019 until | | | [facility] | e | | discontinued, 1 | | | Performable | | | completed | | | s | | | | + + +--------+ + + | RBC MORPHOLOGY | Lab - | Routin | | 08/06/2019 until | | | [facility] | e | | discontinued, 1 | | | Performable | | | completed | | | s | | | | + + +--------+ + + | MANUAL DIFFERENTIAL | Lab - | Routin | | 08/07/2019 until | | | [facility] | e | | discontinued, 1 | | | Performable | | | completed | | | s | | | | + + +--------+ + + | RBC MORPHOLOGY | Lab - | Routin | | 08/07/2019 until | | | [facility] | e | | discontinued, 1 | | | Performable | | | completed | | | s | | | | + + +--------+ + + | RBC MORPHOLOGY | Lab - | Routin | | 08/08/2019 until | | | [facility] | e | | discontinued, 1 | | | Performable | | | completed | | | s | | | | + + +--------+ + + | AML FISH PANEL, BONE | Lab - | Routin | | 08/11/2019 until | | MARROW/CORE | [facility] | e | | discontinued | | | Performable | | | | | | s | | | | + + +--------+ + + documented as of this encounter Procedures + +--------+ + + + | Procedure Name | Priori | Date/Time | Associated Diagnosis | Comments | | | ty | | | | + +--------+ + + + | TRANSFUSE RED CELLS, | Routin | 08/08/2019 | | | | LEUKOREDUCED | e | 6:23 PM | | | | | | PST | | | + +--------+ + + + | HIV RAPID, HIV-1/2 | Routin | 08/08/2019 | | Results for this | | AB, HIV-P24 | e | 3:11 PM | | procedure are in the | | AG,W/REFLEX | | PST | | results section. | | CONFIRMATION | | | | | | ED/OB/EHS ONLY | | | | | + +--------+ + + + | HEPATITIS B SURFACE | Routin | 08/08/2019 | | Results for this | | AG W/REFLEX IF | e | 3:11 PM | | procedure are in the | | INDICATED | | PST | | results section. | + +--------+ + + + | HEP C PCR | Routin | 08/08/2019 | | Results for this | | CONFIRMATION: REFLEX | e | 3:11 PM | | procedure are in the | | ONLY | | PST | | results section. | + +--------+ + + + | FREE T3, SERUM | Routin | 08/08/2019 | | Results for this | | | e | 3:11 PM | | procedure are in the | | | | PST | | results section. | + +--------+ + + + | APTT (ACT. PART. | Routin | 08/08/2019 | | Results for this | | THROMBO TIME) | e | 3:11 PM | | procedure are in the | | | | PST | | results section. | + +--------+ + + + | FREE T4 | Routin | 08/08/2019 | | Results for this | | | e | 3:11 PM | | procedure are in the | | | | PST | | results section. | + +--------+ + + + | TSH | Routin | 08/08/2019 | | Results for this | | | e | 3:11 PM | | procedure are in the | | | | PST | | results section. | + +--------+ + + + | HEPATITIS B CORE AB, | Routin | 08/08/2019 | | Results for this | | SERUM | e | 3:11 PM | | procedure are in the | | | | PST | | results section. | + +--------+ + + + | BILIRUBIN DIRECT | Routin | 08/08/2019 | | Results for this | | | e | 3:11 PM | | procedure are in the | | | | PST | | results section. | + +--------+ + + + | LIPASE, PLASMA | Routin | 08/08/2019 | | Results for this | | | e | 3:11 PM | | procedure are in the | | | | PST | | results section. | + +--------+ + + + | CHOLESTEROL TOTAL, | Routin | 08/08/2019 | | Results for this | | PLASMA | e | 3:11 PM | | procedure are in the | | | | PST | | results section. | + +--------+ + + + | AMYLASE, PLASMA | Routin | 08/08/2019 | | Results for this | | | e | 3:11 PM | | procedure are in the | | | | PST | | results section. | + +--------+ + + + | PROCEDURE NOTE | Routin | 08/08/2019 | | Results for this | | | e | 2:19 PM | | procedure are in the | | | | PST | | results section. | + +--------+ + + + | HB-LAB | Routin | 08/08/2019 | | Results for this | | CROSSMATCH,ELECTRONI | e | 2:16 PM | | procedure are in the | | C | | PST | | results section. | + +--------+ + + + | LEUKEMIA/LYMPHOMA | Urgent | 08/08/2019 | | Results for this | | MARKERS - BONE | | 1:45 PM | | procedure are in the | | MARROW | | PST | | results section. | + +--------+ + + + | UA, DIPSTICK ONLY | Routin | 08/08/2019 | | Results for this | | | e | 11:24 AM | | procedure are in the | | | | PST | | results section. | + +--------+ + + + | URINE, MICROSCOPIC | Routin | 08/08/2019 | | Results for this | | EXAM | e | 11:24 AM | | procedure are in the | | | | PST | | results section. | + +--------+ + + + | RBC MORPHOLOGY | Routin | 08/07/2019 | | Results for this | | | e | 11:54 PM | | procedure are in the | | | | PST | | results section. | + +--------+ + + + | CBC AND AUTO DIFF | Routin | 08/07/2019 | | Results for this | | | e | 11:54 PM | | procedure are in the | | | | PST | | results section. | + +--------+ + + + | CBC, WITH | Routin | 08/07/2019 | | Results for this | | DIFFERENTIAL | e | 11:54 PM | | procedure are in the | | | | PST | | results section. | + +--------+ + + + | COMPLETE METABOLIC | Routin | 08/07/2019 | | Results for this | | SET | e | 11:54 PM | | procedure are in the | | (NA,K,CL,CO2,BUN,CRE | | PST | | results section. | | AT,GLUC,CA,AST,ALT,B | | | | | | STEPH TOTAL,ALK | | | | | | PHOS,ALB,PROT TOTAL) | | | | | + +--------+ + + + | PHOSPHORUS, PLASMA | Routin | 08/07/2019 | | Results for this | | | e | 11:54 PM | | procedure are in the | | | | PST | | results section. | + +--------+ + + + | LIPID SET (TRIG, T | Routin | 08/07/2019 | | Results for this | | CHOL, HDL, CALC LDL) | e | 11:54 PM | | procedure are in the | | | | PST | | results section. | + +--------+ + + + | HEMOGLOBIN A1C, | Routin | 08/07/2019 | | Results for this | | BLOOD | e | 11:54 PM | | procedure are in the | | | | PST | | results section. | + +--------+ + + + | URIC ACID, PLASMA | Routin | 08/07/2019 | | Results for this | | | e | 11:54 PM | | procedure are in the | | | | PST | | results section. | + +--------+ + + + | MAGNESIUM, PLASMA | Routin | 08/07/2019 | | Results for this | | | e | 11:54 PM | | procedure are in the | | | | PST | | results section. | + +--------+ + + + | LDH TOTAL, PLASMA | Routin | 08/07/2019 | | Results for this | | | e | 11:54 PM | | procedure are in the | | | | PST | | results section. | + +--------+ + + + | AMYLASE, PLASMA | Routin | 08/07/2019 | | Results for this | | | e | 11:54 PM | | procedure are in the | | | | PST | | results section. | + +--------+ + + + | RBC MORPHOLOGY | Routin | 08/06/2019 | | Results for this | | | e | 11:27 PM | | procedure are in the | | | | PST | | results section. | + +--------+ + + + | CBC AND AUTO DIFF | Routin | 08/06/2019 | | Results for this | | | e | 11:27 PM | | procedure are in the | | | | PST | | results section. | + +--------+ + + + | MANUAL DIFFERENTIAL | Routin | 08/06/2019 | | Results for this | | | e | 11:27 PM | | procedure are in the | | | | PST | | results section. | + +--------+ + + + | CBC, WITH | Routin | 08/06/2019 | | Results for this | | DIFFERENTIAL | e | 11:27 PM | | procedure are in the | | | | PST | | results section. | + +--------+ + + + | COMPLETE METABOLIC | Routin | 08/06/2019 | | Results for this | | SET | e | 11:27 PM | | procedure are in the | | (NA,K,CL,CO2,BUN,CRE | | PST | | results section. | | AT,GLUC,CA,AST,ALT,B | | | | | | STEPH TOTAL,ALK | | | | | | PHOS,ALB,PROT TOTAL) | | | | | + +--------+ + + + | PHOSPHORUS, PLASMA | Routin | 08/06/2019 | | Results for this | | | e | 11:27 PM | | procedure are in the | | | | PST | | results section. | + +--------+ + + + | URIC ACID, PLASMA | Routin | 08/06/2019 | | Results for this | | | e | 11:27 PM | | procedure are in the | | | | PST | | results section. | + +--------+ + + + | MAGNESIUM, PLASMA | Routin | 08/06/2019 | | Results for this | | | e | 11:27 PM | | procedure are in the | | | | PST | | results section. | + +--------+ + + + | LDH TOTAL, PLASMA | Routin | 08/06/2019 | | Results for this | | | e | 11:27 PM | | procedure are in the | | | | PST | | results section. | + +--------+ + + + | TRANSFUSE RED CELLS, | Routin | 08/06/2019 | | | | LEUKOREDUCED | e | 5:47 PM | | | | | | PST | | | + +--------+ + + + | LEUKEMIA/LYMPHOMA | Urgent | 08/06/2019 | | Results for this | | MARKER - BLOOD | | 12:05 PM | | procedure are in the | | | | PST | | results section. | + +--------+ + + + | X-RAY PORTABLE CHEST | Urgent | 08/06/2019 | | Results for this | | 1 VIEW | | 10:26 AM | | procedure are in the | | | | PST | | results section. | + +--------+ + + + | TRANSTHORACIC | Routin | 08/06/2019 | | Results for this | | ECHOCARDIOGRAM WITH | e | 10:21 AM | | procedure are in the | | STRAIN - CARDIO | | PST | | results section. | | MECHANICS, ADULT | | | | | + +--------+ + + + | PICC LINE | Routin | 08/06/2019 | | Results for this | | | e | 10:17 AM | | procedure are in the | | | | PST | | results section. | + +--------+ + + + | VAT: PICC INSERTION | Routin | 08/06/2019 | | Results for this | | W/US | e | 8:13 AM | | procedure are in the | | | | PST | | results section. | + +--------+ + + + | CONFIRMATORY ABO/RH | Urgent | 08/06/2019 | | Results for this | | | | 6:44 AM | | procedure are in the | | | | PST | | results section. | + +--------+ + + + | HB-LAB | Routin | 08/06/2019 | | Results for this | | CROSSMATCH,ELECTRONI | e | 4:54 AM | | procedure are in the | | C | | PST | | results section. | + +--------+ + + + | COMPLETE METABOLIC | Routin | 08/06/2019 | | Results for this | | SET | e | 3:57 AM | | procedure are in the | | (NA,K,CL,CO2,BUN,CRE | | PST | | results section. | | AT,GLUC,CA,AST,ALT,B | | | | | | STEPH TOTAL,ALK | | | | | | PHOS,ALB,PROT TOTAL) | | | | | + +--------+ + + + | PHOSPHORUS, PLASMA | Routin | 08/06/2019 | | Results for this | | | e | 3:57 AM | | procedure are in the | | | | PST | | results section. | + +--------+ + + + | URIC ACID, PLASMA | Routin | 08/06/2019 | | Results for this | | | e | 3:57 AM | | procedure are in the | | | | PST | | results section. | + +--------+ + + + | MAGNESIUM, PLASMA | Routin | 08/06/2019 | | Results for this | | | e | 3:57 AM | | procedure are in the | | | | PST | | results section. | + +--------+ + + + | LDH TOTAL, PLASMA | Routin | 08/06/2019 | | Results for this | | | e | 3:57 AM | | procedure are in the | | | | PST | | results section. | + +--------+ + + + | RBC MORPHOLOGY | Routin | 08/06/2019 | | Results for this | | | e | 3:56 AM | | procedure are in the | | | | PST | | results section. | + +--------+ + + + | CBC AND AUTO DIFF | Routin | 08/06/2019 | | Results for this | | | e | 3:56 AM | | procedure are in the | | | | PST | | results section. | + +--------+ + + + | MANUAL DIFFERENTIAL | Routin | 08/06/2019 | | Results for this | | | e | 3:56 AM | | procedure are in the | | | | PST | | results section. | + +--------+ + + + | CBC, WITH | Routin | 08/06/2019 | | Results for this | | DIFFERENTIAL | e | 3:56 AM | | procedure are in the | | | | PST | | results section. | + +--------+ + + + | COAGULOPATHY PANEL | Routin | 08/06/2019 | | Results for this | | (INR,APTT,FIBRINOGEN | e | 3:56 AM | | procedure are in the | | ) | | PST | | results section. | + +--------+ + + + | X-RAY CHEST 1 VIEW | Routin | 08/06/2019 | | Results for this | | | e | 12:05 AM | | procedure are in the | | | | PST | | results section. | + +--------+ + + + | CULTURE, BLOOD BACTI | Urgent | 08/05/2019 | | Results for this | | & YEAST [facility] | | 9:11 PM | | procedure are in the | | | | PST | | results section. | + +--------+ + + + | CULTURE, BLOOD BACTI | Urgent | 08/05/2019 | | Results for this | | & YEAST [facility] | | 9:11 PM | | procedure are in the | | | | PST | | results section. | + +--------+ + + + | CULTURE, BLOOD BACTI | Urgent | 08/05/2019 | | Results for this | | & YEAST | | 9:11 PM | | procedure are in the | | | | PST | | results section. | + +--------+ + + + | CULTURE, BLOOD BACTI | Urgent | 08/05/2019 | | Results for this | | & YEAST | | 9:11 PM | | procedure are in the | | | | PST | | results section. | + +--------+ + + + | RAINBOW HOLD TUBE - | Urgent | 08/05/2019 | | | | BLUE TOP | | 7:29 PM | | | | | | PST | | | + +--------+ + + + | CBC AND AUTO DIFF | Urgent | 08/05/2019 | | Results for this | | | | 7:29 PM | | procedure are in the | | | | PST | | results section. | + +--------+ + + + | MANUAL DIFFERENTIAL | Routin | 08/05/2019 | | Results for this | | | e | 7:29 PM | | procedure are in the | | | | PST | | results section. | + +--------+ + + + | RAINBOW HOLD, CORE | Urgent | 08/05/2019 | | Results for this | | PANEL | | 7:29 PM | | procedure are in the | | | | PST | | results section. | + +--------+ + + + | CBC, WITH | Urgent | 08/05/2019 | | Results for this | | DIFFERENTIAL | | 7:29 PM | | procedure are in the | | | | PST | | results section. | + +--------+ + + + | COMPLETE METABOLIC | Urgent | 08/05/2019 | | Results for this | | SET | | 7:29 PM | | procedure are in the | | (NA,K,CL,CO2,BUN,CRE | | PST | | results section. | | AT,GLUC,CA,AST,ALT,B | | | | | | STEPH TOTAL,ALK | | | | | | PHOS,ALB,PROT TOTAL) | | | | | + +--------+ + + + | ANTIBODY SCREEN | Urgent | 08/05/2019 | | Results for this | | | | 7:29 PM | | procedure are in the | | | | PST | | results section. | + +--------+ + + + | TYPE AND SCREEN | Urgent | 08/05/2019 | | Results for this | | | | 7:29 PM | | procedure are in the | | | | PST | | results section. | + +--------+ + + + | ABO & RH TYPE | Urgent | 08/05/2019 | | Results for this | | | | 7:29 PM | | procedure are in the | | | | PST | | results section. | + +--------+ + + + | PHOSPHORUS, PLASMA | Urgent | 08/05/2019 | | Results for this | | | | 7:29 PM | | procedure are in the | | | | PST | | results section. | + +--------+ + + + | URIC ACID, PLASMA | Urgent | 08/05/2019 | | Results for this | | | | 7:29 PM | | procedure are in the | | | | PST | | results section. | + +--------+ + + + | LDH TOTAL, PLASMA | Urgent | 08/05/2019 | | Results for this | | | | 7:29 PM | | procedure are in the | | | | PST | | results section. | + +--------+ + + + documented in this encounter Results HEPATITIS C VIRUS BY QUANTITATIVE NAAT (08/08/2019 3:11 PM PST) + + + + + + | Component | Value | Ref Range | Performed | Pathologist | | | | | At | Signature | + + + + + + | HCV QNT BY | Not Detected | IU/mL | [facility] | | | NAAT | | | REG UNIV | | | (IU/ML) | | | PTH - [facility] | | + + + + + + | HCV QNT BY | Not Detected | log IU/mL | [facility] | | | NAAT (LOG | | | REG UNIV | | | IU/ML) | | | PTH - [facility] | | + + + + + + | HCV QNT BY | Not DetectedComment: | Not Detected | [facility] | | | NAAT | INTERPRETIVE | | REG UNIV | | | INTERPRETAT | INFORMATION: HCV by | | PTH - [facility] | | | ION | Quantitative NAAT Normal | | | | | | range for this assay is | | | | | | "Not Detected".The | | | | | | quantitative range of | | | | | | this assay is 10 - | | | | | | 100,000,000 IU/mL (1.0 - | | | | | | 8.0 log IU/mL). Lower | | | | | | limit of quantitation | | | | | | (LLoQ):10 IU/mL (1.0 log | | | | | | IU/mL)LLoQ values do | | | | | | not apply to diluted | | | | | | specimens.A result of | | | | | | "Not Detected" does not | | | | | | rule out the presence of | | | | | | inhibitors in the | | | | | | patient specimen or | | | | | | hepatitis C virus RNA | | | | | | concentrations below the | | | | | | level of detection of | | | | | | the test. Care should be | | | | | | taken when interpreting | | | | | | any single viral load | | | | | | determination. This test | | | | | | should not be used for | | | | | | blood donor screening, | | | | | | associated re-entry | | | | | | protocols, or for | | | | | | screening Human Cell, | | | | | | Tissues and Cellular | | | | | | Tissue-Based Products | | | | | | (HCT/P).Performed by | | | | | | [employer],[address] | | | | | [address] [facility] [place] | | | | | | [address] | | | | | | [phone].[employer]. | | | | | | Rios burgess MD, | | | | | | Lab. Director | | | | + + + + + + + + | Specimen | + + | Blood - Blood | | (substance) | + + + + + + + | Performing | Address | City/State/Zipcode | Phone Number | | Organization | | | | + + + + + | [facility] | [address] | [place], [place] | | | UNIV PTH - INT[facility] | | [address] | | + + + + + BILIRUBIN DIRECT (08/08/2019 3:11 PM PST) + +---------+ + + + | Component [...] + + | [facility] | [address] | [place] [address] | | | SERVICES, CORE | [address] | | | + + + + + FREE T4 (08/08/2019 3:11 PM PST) + +-------+ + + + | Component | Value | Ref Range | Performed | Pathologist | | | | | At | Signature | + +-------+ + + + | FREE T4 | 1.2 | 0.6 - 1.2 ng/dL | [facility] | | | | | [...] | + + + + + | [facility] | [address] | [place] [address] | | | SERVICES, CORE | [address] | | | + + + + + FREE T3, SERUM (08/08/2019 3:11 PM PST) + + + + + + | Component | Value | Ref Range | Performed | Pathologist | | | | | At | Signature | + + + + + + | FREE T3 | 2.2 (L)Comment: | 2.4 - 4.2 pg/mL | [facility] | | | | REFERENCE INTERVAL: | | REG UNIV | | | | Triiodothyronine, Free | | PTH - INT[facility] | | | | (Free T3) Access | | | | | | complete set of age- | | | | | | and/or gender-specific | | | | | | reference intervals for | | | | | | this test in the [facility] | | | | | | Laboratory Test | | | | | | Directory | | | | | | ([employer]).Performed | | | | | | by [facility],[address] | | | | | [address], [facility] [place] | | | | | | [address] | | | | | | [phone].[employer]. | | | | | | com, Rios Latham MD, | | | | | | Lab. Director | | | | + + + + + + + + | Specimen | + + | Blood - Blood | | (substance) | + + + + + + + | Performing | Address | City/State/Zipcode | Phone Number | | Organization | | | | + + + + + | [facility] | [address] | [place], [place] | | | UNIV PTH - INT[facility] | | [address] | | + + + + + TSH (08/08/2019 3:11 PM PST) + +-------+ + + + | Component | Value | Ref Range | Performed | Pathologist | | | | | At | Signature | + +-------+ + + + | TSH | 1.06 | 0.47 - 7.11 | [facility] | | | | | mIU/L | LABORATORY | | | | | | SERVICES, | | | | | | CORE | | + +-------+ + + + + + | Specimen | + + | Blood - Blood | | (substance) | + + + + + | Narrative | Performed At | + + + | TSH reference ranges are influenced by a variety of environmental | [facility] | | influences, age, gender and ethnicity. The supplied reference limits | LABORATORY | | are based on published values utilizing a similar TSH assay, and | SERVICES, CORE | | should be interpreted with caution. | | + + + + + + + + | Performing | Address | City/State/Zipcode | Phone Number | | Organization | | | | + + + + + | [facility] | [address] | [place] [address] | | | SERVICES, CORE | [address] | | | + + + + + HIV RAPID, HIV-1/2 AB, HIV-P24 AG,W/REFLEX CONFIRMATION ED/OB/EHS ONLY (08/08/2019 3:11 PM PST) + + + + + + | Component | Value | Ref Range | Performed | Pathologist | | | | | At | Signature | + + + + + + | HIV P24 | Nonreactive | Nonreactive | [facility] | | | ANTIGEN | | | LABORATORY | | | | | | SERVICES, | | | | | | CORE | | + + + + + + | RAPID | Nonreactive | Nonreactive | [facility] | | | HIV-1/2 AB | | | LABORATORY | | | [...] [facility] | [address] | [place] [address] | | | SERVICES, CORE | [address] | | | + + + + + HEPATITIS B CORE AB, SERUM (08/08/2019 3:11 PM PST) + + + + + + | Component | Value | Ref Range | Performed | Pathologist | | | | | At | Signature | + + + + + + | HEP B CORE | Not Detected | Not Detected | [facility] | | | AB | | | LABORATORY | | | [...] + + | [facility] | [address] | [place] [address] | | | SERVICES, CORE | [address] | | | + + + + + HEPATITIS B SURFACE AG W/REFLEX CONFIRMATION IF INDETERMINATE RESULTS (08/08/2019 3:11 PM PST) + + + + + + | Component | Value | Ref Range | Performed | Pathologist | | | | | At | Signature | + + + + + + | HEPATITIS B | | | [facility] | | | SURFACE | | | LABORATORY | | | AG, SERUM | | | SERVICES, | | | | | | CORE | | + + + + + + | HEP B | Not Detected | Not Detected | [facility] | | | SURFACE AG | | | LABORATORY | | | [...] [facility] | [address] | [place] [address] | | | SERVICES, CORE | [address] | | | + + + + + LIPASE, PLASMA (08/08/2019 3:11 PM PST) + +---------+ + + + | Component | Value | Ref Range | Performed | Pathologist | | | | | At | Signature | + +---------+ + + + | LIPASE | 577 (H) | 152 - 353 U/L | [facility] | | | (LAB) | [...] | + + + + + | [facility] | [address] | [place] [address] | | | SERVICES, CORE | [address] | | | + + + + + AMYLASE, PLASMA (08/08/2019 3:11 PM PST) + +-------+ + + + | Component | Value | Ref Range | Performed | Pathologist | | | | | At | Signature | + +-------+ + + + | AMYLASE,RAÚL | 75 | 25 - 115 U/L | [facility] | | | SMA | | | LABORATORY | | | [...] | + + + + + | [facility] | [address] | [place] [address] | | | SERVICES, CORE | [address] | | | + + + + + CHOLESTEROL TOTAL, PLASMA (08/08/2019 3:11 PM PST) + +-------+ + + + | Component | Value | Ref Range | Performed | Pathologist | | | | | At | Signature | + +-------+ + + + | CHOLESTEROL | 124 | <200 mg/dL | [facility] | | | (LAB) | | | [...] | + + + + + | [facility] | [address] | [place] [address] | | | SERVICESANY | [address] | | | + + + + + APTT (ACT. PART. THROMBO TIME) (08/08/2019 3:11 PM PST) + +-------+ + + + | Component | Value | Ref Range | Performed | Pathologist | | | | | At | Signature | + +-------+ + + + | APTT | 32.0 | 26.0 - 36.0 | [facility] | [...] Range: (75 - 120) sec Heparin | [facility] | | levels of 0.35 - 0.7 U/mL | | + + + + + + + + | Performing | Address | City/State/Zipcode | Phone Number | | Organization | | | | + + + + + | [facility] | [address] | [place] [address] | | | [facility] [place] | [address] | | | + + + + + PROCEDURE NOTE (08/08/2019 2:19 PM PST) + + + | Narrative | Performed At | + + + | [facility]CI[facility] Winters 08/08/2019 2:38 PM 08/08/2019 2:19 PM | | | Procedure Note Procedure: Bone marrow aspirate and biopsy | | | Indications: Evaluation for MDS vs. AML Team Pause: At 1330, prior | | | to the beginning of the procedure, the team paused to verify the | | | patient's identity, as well as the procedure to be performed and the | | | correct side/site. All equipment required was ready and available. | | | The patient was positioned appropriately. The following team members | | | were present during the team pause: Sarahy Singh PA-C. | | | Description: Written consent for bone marrow aspirate and biopsy was | | | obtained from the patient following a brief discussion regarding | | | the risks and benefits of the procedure. The patient was not | | | premedicated for anxiolysis per patient preference (despite offered | | | multiple times prior and during procedure). The skin on left | | | posterior iliac crest was cleansed with betadine and draped in a | | | sterile manner. Xylocaine 1% was used for local anesthesia. A 3 mm | | | punch biopsy was used to enlarge the insertion site, and the excised | | | skin was placed in a sterile saline container and submitted for the | | | 4422 study. A Jamshidi needle was inserted and the first aspirate | | | contained spicules but not enough aspirate was able to be collected | | | for processing. The Jamshidi needle was re-inserted to obtain core | | | biopsy specimens. A core biopsy measuring approximately 1.1-2 cm was | | | obtained and submitted for morphology studies and a second core | | | biopsy measuring approximately 1.1-2 cm was obtained and submitted | | | for morphology studies Hemostasis was achieved and a pressure | | | dressing was applied. The patient was observed for 20 minutes | | | post-procedure for signs of bleeding. Pt tolerated the procedure | | | well without complications. The results of this procedure | | | will take approximately 7 to 10 days for full analysis. However, | | | preliminary results should be available within the next 24 to 48 | | | hours. Lab Results Lab Test Name Results Date/Time | | | WBC 2.16 08/07/19 | | | RBC 2.53 08/07/19 | | | HB 7.4 08/07/19 | | | HCT 21.9 08/07/19 | | | MCV 86.6 08/07/19 | | | MCHC 33.8 08/07/19 | | | RDW 43.9 08/07/19 | | | PLT 26 08/07/19 | | | NEUTROPERC 27.3 08/07/19 | | | NEUTROPERC 26.7 08/06/19 | | | LYMPHPERC 60.2 08/07/19 | | | LYMPHPERC 67.2 08/06/19 | | | MONOPERC 10.6 08/07/19 | | | MONOPERC 6.0 08/06/19 | | | EOSPERC 0.0 08/07/19 | | | EOSPERC 0.0 08/06/19 | | | BASOPERC 0.5 08/07/19 | | | BASOPERC 0.0 08/06/19 | | | ATYPICALPCT 3.5 08/06/19 | | | NEUTROPHILCO 0.59 08/07/19 | | | NEUTROPHILCO 0.58 08/06/19 | | | MONOCYTECO 0.23 08/07/19 | | | MONOCYTECO 0.13 08/06/19 | | | EOSCO 0.00 08/07/19 | | | EOSCO 0.00 08/06/19 | | | BASOPHILCO 0.01 08/07/19 | | | BASOPHILCO 0.00 08/06/19 [facility] [place] [facility] 14K | | | [address] [facility] Mailcode: [id number] [place] [address] | | | [phone] | | + + + PRODUCT - RED CELLS LEUKOREDUCED (08/08/2019 2:16 PM PST) + + + + + + | [...] + + + + | PRODUCT | [id number] | | [facility] | | | UNIT [...] + + + + | EXPIRATION | [id number] | | [facility] | | | DATE [...] + + + + | BLOOD | [id number] | | [facility] | | | PRODUCT [...] | + + + + + | [facility] | [address] | [place] [address] | | | MEGAN, | [address] | | | | TRANSFUSION MEDICINE | | | | + + + + + LEUKEMIA/LYMPHOMA MARKERS - BONE MARROW (08/08/2019 1:45 PM PST) + + + + + + | Component | Value | Ref Range | Performed | Pathologist | | | | | At | Signature | + + + + + + | Final | Bone marrow aspirate, | | [facility] | Electronically | | Pathologic | clot section, core | | DEPARTMENT | signed by Raymundo | | Diagnosis | biopsy and peripheral | | OF | Ike Bradshaw MD | | | blood: - Hypercellular | | PATHOLOGY | on 08/15/2019 at | | | marrow (90%) with | | | 9:30 AM | | | prominent fibrosis and | | | | | | approximately 30% | | | | | | hematopoietic elements - | | | | | | Increased reticulin | | | | | | fibrosis (MF-2) - | | | | | | Megakaryocytic | | | | | | hyperplasia and atypia - | | | | | | Blasts less than 5% - | | | | | | Peripheral blood with | | | | | | normocytic, normochromic | | | | | | anemia, absolute | | | | | | neutropenia, and | | | | | | thrombocytopeniaComment: | | | | | | 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 Clinical | | | | | | correlation is | | | | | | recommended. Cytogenetic | | | | | | studies and high | | | | | | throughput sequencing | | | | | | for mutations found in | | | | | | myeloid malignancies | | | | | | such as [id number] are | | | | | | recommended. Case seen | | | | | | by:GLORIA Mehta, | | | | | | MPH | | | | | | | | | | | | Pathology ResidentMar | | | | | | Leeann WORTHY, PhD - | | | | | | HematopathologistPatholo | | | | | | gy, [facility] | | | | | | [facility] | | | | | | electronic signature | | | | | | indicates that I have | | | | | | personally reviewed all | | | | | | diagnostic slides, the | | | | | | gross and/or microscopic | | | | | | portion of this report | | | | | | and formulated the final | | | | | | diagnosis.CLINICAL | | | | | | HISTORY: 69 y.o. female | | | | | | with a history of | | | | | | hypertension and | | | | | | hypothyroidism admitted | | | | | | for evaluation of | | | | | | pancytopenia.CBC:Resulte | | | | | | d Date and Time: | | | | | | 08/08/2019 0050 PST | | | | | | | | | | | | | | | | | | Component Result | | | | | | Reference Range WHITE | | | | | | CELL COUNT 2.16 | | | | | | 3.50-10.80 K/cu mm RED | | | | | | CELL COUNT 2.53 | | | | | | 4.00-5.20 M/cu mm | | | | | | HEMOGLOBIN 7.4 | | | | | | 12.0-16.0 g/dL | | | | | | HEMATOCRIT 21.9 | | | | | | 36.0-46.0 % MCV 86.6 | | | | | | 80.0-100.0 fL MCHC 33.8 | | | | | | 32.0-36.0 g/dL RDW SD | | | | | | 43.9 35.1-46.3 fL | | | | | | PLATELET COUNT 26 | | | | | | 150-400 K/cu mm MPV | | | | | | 9.7-12.3 fL NRBC% 0.0 | | | | | | 0.0-0.3 % NRBC# 0.00 | | | | | | 0.00-0.02 K/cu mm | | | | | | PERIPHERAL BLOOD | | | | | | DIFFERENTIAL | | | | | | | | | | | | Component | | | | | | Result Reference | | | | | | Range NEUTROPHIL % | | | | | | 27.3 50.0-70.0 % | | | | | | LYMPHOCYTE % 60.2 | | | | | | 18.0-42.0 % MONOCYTE % | | | | | | 10.6 3.5-9.0 % EOS % | | | | | | 0.0 1.0-3.0 % BASO % | | | | | | 0.5 0.0-2.0 % IG% | | | | | | 1.4 0.0-1.0 % | | | | | | NEUTROPHIL # 0.59 | | | | | | 1.80-7.70 K/cu mm | | | | | | LYMPHOCYTE # 1.30 | | | | | | 1.00-4.80 K/cu mm | | | | | | MONOCYTE # 0.23 | | | | | | 0.10-0.90 K/cu mm EOS # | | | | | | 0.00 0.00-0.50 K/cu mm | | | | | | BASO # 0.01 0.00-0.10 | | | | | | K/cu mm IG# 0.03 | | | | | | 0.00-0.10 K/cu mm | | | | | | PERIPHERAL BLOOD | | | | | | MORPHOLOGY:WBC: Rare | | | | | | cells suspicious for | | | | | | blasts. Some | | | | | | hypogranular | | | | | | neutrophils. Lymphocytes | | | | | | are morphologically | | | | | | heterogeneous. Monocytes | | | | | | appear mature. RBC: | | | | | | Moderate | | | | | | anisopoikilocytosis with | | | | | | dacrocytes, | | | | | | echinocytes, ovalocytes | | | | | | and shistocytes. | | | | | | Platelets: Very few | | | | | | platelets for | | | | | | evaluation; some large | | | | | | and hypogranular forms | | | | | | seen. BONE MARROW | | | | | | ASPIRATE SMEARS:Quality: | | | | | | No particles present. | | | | | | Hemodilute, similar to | | | | | | peripheral blood. BONE | | | | | | MARROW DIFFERENTIAL: | | | | | | Unable to obtain an | | | | | | aspirate differential | | | | | | due to lack of particles | | | | | | and hemodilution. BONE | | | | | | MARROW BIOPSY/CLOT | | | | | | SECTION:Quality: Core is | | | | | | adequate. No particles | | | | | | present in clot | | | | | | section. Cellularity: | | | | | | Hypercellular for age | | | | | | (~90%). Predominantly | | | | | | fibrosis with ~30% | | | | | | hematopoiesis Myeloids: | | | | | | Not well visualized. | | | | | | Erythroids: Complete | | | | | | maturation. | | | | | | Megakaryocytes: | | | | | | Increased with small, | | | | | | hypolobate forms. | | | | | | Infiltrate: Fibrosis. | | | | | | FLOW CYTOMETRIC | | | | | | ANALYSIS: % of | | | | | | total WBC (CD45+)Myeloid | | | | | | Blasts ~5 Monocytes 3 | | | | | | Lymphocytes 19 Summary: | | | | | | Flow cytometric | | | | | | analysis performed with | | | | | | only ~3300 viable cells. | | | | | | There is a ~5% blast | | | | | | population that is | | | | | | positive for CD33, CD34, | | | | | | CD117 and HLD-DR. | | | | | | Antibodies [id number] | | | | | | CD14 CD16 CD33 CD34 CD45 | | | | | | CD56 CD64 CD117 HLA-DR | | | | | | IMMUNOHISTOCHEMICAL | | | | | | STAINS: IHC stains were | | | | | | performed on the bone | | | | | | marrow core biopsy. CD34 | | | | | | and CD117 highlight a | | | | | | blast population | | | | | | comprising approximately | | | | | | <5% of the marrow. Some | | | | | | megakaryocytes show | | | | | | weak cytoplasmic CD34 | | | | | | staining. No aberrant | | | | | | mast cell population is | | | | | | identified using CD117. | | | | | | CD3 and CD20 highlight | | | | | | sparse T-cells and | | | | | | B-cells respectively. | | | | | | CD61 shows numerous | | | | | | small, atypical | | | | | | megakaryocytes. CD71 | | | | | | highlights scattered | | | | | | erythroid islands. No | | | | | | atypical cells are | | | | | | highlighted by CD30. | | | | | | SPECIAL STAINS: | | | | | | Reticulin stain of the | | | | | | bone marrow core shows | | | | | | increased fibrosis | | | | | | (MF-2). There is no | | | | | | increase in collagen | | | | | | fibrosis on trichrome | | | | | | stain. | | | | + + + + + + | Gross | Both the clot and core | | [facility] | | | Description | biopsy were fixed in | | DEPARTMENT | | | | formalin. The core | | OF | | | | biopsy was decalcified. | | PATHOLOGY | | | | A Boyce-stained | | | | | | peripheral blood smear | | | | | | and bone marrow aspirate | | | | | | smears were prepared. | | | | | | A: Bone Marrow Biopsy - | | | | | | 0.8 L x 0.2 D cmC: | | | | | | Bone Marrow Clot - 1.7 x | | | | | | 0.5 x 0.1 cm(RLW) | | | | + + + + + + | Ancillary | Analyte specific | | [facility] | | | Information | reagents are used in | | DEPARTMENT | | | | many laboratory tests | | OF | | | | necessary for standard | | PATHOLOGY | | | | medical care. This test | | | | | | was developed and its | | | | | | performance | | | | | | characteristics | | | | | | determined by [facility] | | | | | | laboratories. It has not | | | | | | been cleared or | | | | | | approved by the US Food | | | | | | and Drug Administration | | | | | | (FDA). FDA does not | | | | | | require this test to go | | | | | | through premarket FDA | | | | | | review. This test is | | | | | | used for clinical | | | | | | purposes. It should not | | | | | | be regarded as | | | | | | investigational or for | | | | | | research. This | | | | | | laboratory is certified | | | | | | under the Clinical | | | | | | Laboratory Improvement | | | | | | Amendments (CLIA) as | | | | | | qualified to perform | | | | | | high complexity clinical | | | | | | laboratory testing. If | | | | | | immunohistochemical | | | | | | analysis (IHC) was | | | | | | performed concurrently | | | | | | with flow cytometry, the | | | | | | IHC was done to allow | | | | | | assessment of | | | | | | immunoarchitecture, | | | | | | which is not supplied by | | | | | | flow cytometry. Flow | | | | | | cytometry enables better | | | | | | assessment of clonality | | | | | | and antigen aberrancy | | | | | | than IHC. Appropriate | | | | | | positive controls and/or | | | | | | negative controls were | | | | | | used for all stains, | | | | | | including | | | | | | immunohistochemical | | | | | | stains, special stains, | | | | | | and in situ | | | | | | hybridization, and these | | | | | | reacted appropriately. | | | | + + + + + + + + | Specimen | + + | Bone marrow - Bone | | marrow aspirate | + + | Bone marrow | | structure (body | | structure) | + + | Blood (substance) | + + | Bone marrow aspirate | + + + + + + + | Performing | Address | City/State/Zipcode | Phone Number | | Organization | | | | + + + + + | [facility] | [address] | [place] [address] | | | PATHOLOGY | [address] | | | + + + + + URINE, MICROSCOPIC EXAM (08/08/2019 11:24 AM PST) + + + + + + | Component | Value | Ref Range | Performed | Pathologist | | | | | At | Signature | + + + + + + | RED CELLS | 2 | 0 - 3 /hpf | [facility] | | | | | | LABORATORY | | | | | | SERVICES, | | | | | | CORE | | + + + + + + | WHITE CELLS | 6 (H) | 0 - 5 /hpf | [facility] | | | | | | LABORATORY | | | | | | SERVICES, | | | | | | CORE | | + + + + + + | BACTERIA | None | None /hpf | [facility] | | | | | | LABORATORY | | | | | | SERVICES, | | | | | | CORE | | + + + + + + | YEAST (LAB) | None | None /hpf | [facility] | | | | | | LABORATORY | | | | | | SERVICES, | | | | | | CORE | | + + + + + + | SQUAMOUS | Moderate (A) | None, Few /hpf | [facility] | | | EPITHELIAL | | | LABORATORY | | | | | | SERVICES, | | | | | | CORE | | + + + + + + | MUCOUS | None | None, Few /hpf | [facility] | | | | | | LABORATORY | | | | | | SERVICES, | | | | | | CORE | | + + + + + + | NON-SQUAMOU | Few (A) | None /hpf | [facility] | | | S EPITH | | | LABORATORY | | | | | | SERVICES, | | | | | | CORE | | + + + + + + | HYALINE | 0 | 0 - 2 /lpf | [facility] | | | CASTS | | | LABORATORY | | | | | | SERVICES, | | | | | | CORE | | + + + + + + | GRANULAR | 0 | 0 - 2 /lpf | [facility] | | | CASTS | | | LABORATORY | | | | | | SERVICES, | | | | | | CORE | | + + + + + + | CELLULAR | 0 | <=0 /lpf | [facility] | | | CASTS | | | LABORATORY | | | | | | SERVICES, | | | | | | CORE | | + + + + + + | TRIPLE P04 | None | None, Few /hpf | [facility] | | | CRYSTALS | | | LABORATORY | | | | | | SERVICES, | | | | | | CORE | | + + + + + + | CALCIUM | None | None, Few /hpf | [facility] | | | OXALATE | | | LABORATORY | | | AMINTA | | | SERVICES, | | | | | | CORE | | + + + + + + | URIC ACID | None | None, Few /hpf | [facility] | | | CRYSTALS | | | LABORATORY | | | | | | SERVICES, | | | | | | CORE | | + + + + + + | AMORPHOUS | None [...] [facility] | [address] | [place] [address] | | | SERVICES, CORE | [address] | | | + + + + + VENITA REED ONLY (08/08/2019 11:24 AM PST) + + + + + + | Component | Value | Ref Range | Performed | Pathologist | | | | | At | Signature | + + + + + + | COLOR(UR) | Yellow | | [facility] | | | | | | LABORATORY | | | | | | SERVICES, | | | | | | CORE | | + + + + + + | APPEARANCE | Sl.Cloudy | | [facility] | | | | | | LABORATORY | | | | | | SERVICES, | | | | | | CORE | | + + + + + + | GLUCOSE(UR) | Negative | Negative, 50.0 | [facility] | | | | | mg/dL | LABORATORY | | | | | | SERVICES, | | | | | | CORE | | + + + + + + | PROTEIN(LAB | Negative | Negative, 30.0 | [facility] | | | ) | | mg/dL | LABORATORY | | | | | | SERVICES, | | | | | | CORE | | + + + + + + | BILIRUBIN | Negative | Negative | [facility] | | | | | | LABORATORY | | | | | | SERVICES, | | | | | | CORE | | + + + + + + | UROBILINOGE | <2.0 | <2.0 mg/dL | [facility] | | | N | | | LABORATORY | | | | | | SERVICES, | | | | | | CORE | | + + + + + + | PH(UR) | 6.0 | 5.0 - 8.0 | [facility] | | | | | | LABORATORY | | | | | | SERVICES, | | | | | | CORE | | + + + + + + | BLOOD | Negative | Negative | [facility] | | | | | | LABORATORY | | | | | | SERVICES, | | | | | | CORE | | + + + + + + | KETONES | Negative | Negative mg/dL | [facility] | | | | | | LABORATORY | | | | | | SERVICES, | | | | | | CORE | | + + + + + + | NITRITES | Negative | Negative | [facility] | | | | | | LABORATORY | | | | | | SERVICES, | | | | | | CORE | | + + + + + + | LEUKOCYTE | Small (A) | Negative | [facility] | | | ESTERASE | | | LABORATORY | | | | | | SERVICES, | | | | | | CORE | | + + + + + + | SPECIFIC | 1.016Comment: Specific | 1.005 - 1.030 | [facility] | | | GRAVITY | [place] performed by | | LABORATORY | | | | refractometry | | SERVICES, | | | | [...] LABORATORY | [address] | [place] [address] | | | SERVICES, CORE | [address] | | | + + + + + AMYLASE, PLASMA (08/07/2019 11:54 PM PST) + +-------+ + + + | Component | Value | Ref Range | Performed | Pathologist | | | | | At | Signature | + +-------+ + + + | AMYLASE,RAÚL | 79 | 25 - 115 U/L | [facility] | | | SMA | | | LABORATORY | | | [...] | + + + + + | [facility] | [address] | [place] [address] | | | SERVICES, CORE | [address] | | | + + + + + RBC MORPHOLOGY (08/07/2019 11:54 PM PST) + + + + + + | [...] | + + + + + | [facility] | [address] | [place] [address] | | | SERVICES, CORE | [address] | | | + + + + + CBC AND AUTO DIFF (08/07/2019 11:54 PM PST) + + + + + + | Component | Value | Ref Range | Performed | Pathologist | | | | | At | Signature | + + + + + + | WHITE CELL | 2.16 (L) | 3.50 - 10.80 | [facility] | | | COUNT | | K/cu mm | LABORATORY | | | | | | SERVICES, | | | | | | CORE | | + + + + + + | RED CELL | 2.53 (L) | 4.00 - 5.20 | [facility] | | | COUNT | | M/cu mm | LABORATORY | | | | | | SERVICES, | | | | | | CORE | | + + + + + + | HEMOGLOBIN | 7.4 (L) | 12.0 - 16.0 | [facility] | | | | | g/dL | LABORATORY | | | | | | SERVICES, | | | | | | CORE | | + + + + + + | HEMATOCRIT | 21.9 (L) | 36.0 - 46.0 % | [...] + + + + | MCHC | 33.8 | 32.0 - 36.0 | [facility] | | | | | g/dL | LABORATORY | | | | | | SERVICES, | | | | | | CORE | | + + + + + + | RDW SD | 43.9 | 35.1 - 46.3 fL | [facility] | | | | | | LABORATORY | | | | | | SERVICES, | | | | | | CORE | | + + + + + + | PLATELET | 26 (L)Comment: Macro | 150 - 400 K/cu | [facility] | | | COUNT | platelets present. | mm | LABORATORY | | | [...] + + + + | NEUTROPHIL | 27.3 (L) | 50.0 - 70.0 % | [facility] | | | % | | | LABORATORY | | | | | | SERVICES, | | | | | | CORE | | + + + + + + | LYMPHOCYTE | 60.2 (H) | 18.0 - 42.0 % | [facility] | | | % | | | LABORATORY | | | | | | SERVICES, | | | | | | CORE | | + + + + + + | MONOCYTE % | 10.6 (H) | 3.5 - 9.0 % | [...] + + + | BASO % | 0.5 | 0.0 - 2.0 % | [facility] | | | | | | LABORATORY | | | | | | SERVICES, | | | | | | CORE | | + + + + + + | IG% | 1.4 (H) | 0.0 - 1.0 % | [facility] | | | | | | LABORATORY | | | | | | SERVICES, | | | | | | CORE | | + + + + + + | NEUTROPHIL | 0.59 (L) | 1.80 - 7.70 | [facility] | | | # | | K/cu mm | LABORATORY | | | | | | SERVICES, | | | | | | CORE | | + + + + + + | LYMPHOCYTE | 1.30 | 1.00 - 4.80 | [facility] | | | # | | K/cu mm | LABORATORY | | | | | | SERVICES, | | | | | | CORE | | + + + + + + | MONOCYTE # | 0.23 | 0.10 - 0.90 | [facility] | [...] + + + | BASO # | 0.01 | 0.00 - 0.10 | [facility] | [...] the IG count. Bands are | SERVICES, CORE | | included in the neutrophil count. | | + + + + + + + + | Performing | Address | City/State/Zipcode | Phone Number | | Organization | | | | + + + + + | [facility] | [address] | [place] [address] | | | SERVICES, CORE | [address] | | | + + + + + LDH TOTAL, PLASMA (08/07/2019 11:54 PM PST) + +---------+ + + + | Component | Value | Ref Range | Performed | Pathologist | | | | | At | Signature | + +---------+ + + + | LD TOTAL, | 313 (H) | <=250 U/L | [facility] | [...] [facility] | [address] | [place] [address] | | | SERVICES, CORE | [address] | | | + + + + + URIC ACID, PLASMA (08/07/2019 11:54 PM PST) + +-------+ + + + | Component | Value | Ref Range | Performed | Pathologist | | | | | At | Signature | + +-------+ + + + | URIC ACID, | 3.8 | 2.5 - 6.2 mg/dL | [facility] [...] + + | [facility] | [address] | [place] [address] | | | SERVICES, CORE | [address] | | | + + + + + PHOSPHORUS, PLASMA (08/07/2019 11:54 PM PST) + +-------+ + + + | Component | Value | Ref Range | Performed | Pathologist | | | | | At | Signature | + +-------+ + + + | PHOSPHORUS, | 3.4 | 2.4 - 4.7 mg/dL | [facility] | | | PLASMA | | | LABORATORY | | | (LAB) | | | MEGAN, | | | | | | CORE | | + +-------+ + + + + + | Specimen | + + | Blood - Blood | | (substance) | + + + + + + + | Performing | Address | City/State/Zipcode | Phone Number | | Organization | | | | + + + + + | [facility] | [address] | [place] [address] | | | MEGAN, ANY | [address] | | | + + + + + MAGNESIUM, PLASMA (08/07/2019 11:54 PM PST) + +-------+ + + + | Component [...] [facility] | [address] | [place] [address] | | | SERVICES, CORE | [address] | | | + + + + + COMPLETE METABOLIC SET (NA,K,CL,CO2,BUN,CREAT,GLUC,CA,AST,ALT,BILI TOTAL,ALK PHOS,ALB,PROT TOTAL) (08/07/2019 11:54 PM PST) + +---------+ + + + | Component | Value | Ref Range | Performed | Pathologist | | | | | At | Signature | + +---------+ + + + | GLUCOSE, | 163 (H) | 70 - 99 mg/dL | [...] +---------+ + + + | CREATININE | 0.75 | 0.60 - 1.10 | [facility] | | | PLASMA | | mg/dL | LABORATORY | | | (LAB) | | | SERVICES, | | | | | | CORE | | + +---------+ + + + | EGFR | >60 | >60 mL/min | [facility] | | | - | | | LABORATORY | | | SERBIAN | | | SERVICES, | | | | | | CORE | | + +---------+ + + + | EGFR NON | >60 | >60 mL/min | [facility] | | | -KASSIE | | | LABORATORY | | | RICAN | | | SERVICES, | | | | | | CORE | | + +---------+ + + + | SODIUM, | 141 | 136 - 145 | [facility] | | | PLASMA | | mmol/L | LABORATORY | | | (LAB) | | | SERVICES, | | | | | | CORE | | + +---------+ + + + | POTASSIUM, | 3.9 | 3.4 - 5.0 | [facility] | | | PLASMA | | mmol/L | LABORATORY | | | (LAB) | | | SERVICES, | | | | | | CORE | | + +---------+ + + + | CHLORIDE, | 107 | 97 - 108 mmol/L | [facility] [...] +---------+ + + + | CALCIUM(ALB | 9.5 | 8.6 - 10.2 | [...] + + + | ALK PHOS | 62 | 53 - 141 U/L | [facility] | | | | | | LABORATORY | | | | | | SERVICES, | | | | | | CORE | | + +---------+ + + + | AST(SGOT) | 15 | <=41 U/L | [facility] | | [...] + + + | ANION GAP | 7 | 4 - 11 mmol/L | [facility] [...] +---------+ + + + | BUN/CREATIN | 19 | 8 - 25 | [facility] | | | INE RATIO | | | LABORATORY | | | | | | SERVICES, | | | | | | CORE | | + +---------+ + + + | GLOBULIN | 3.8 (H) | 2.3 - 3.5 gm/dL | [...] | + + + + + | [facility] | [address] | [place] [address] | | | SERVICES, ANY | [address] | | | + + + + + LIPID SET (TRIG, T CHOL, HDL, CALC LDL) (08/07/2019 11:54 PM PST) + +---------+ + + + | Component | Value | Ref Range | Performed | Pathologist | | | | | At | Signature | + +---------+ + + + | CHOLESTEROL | 120 | <200 mg/dL | [facility] | | | (LAB) | | | LABORATORY | | | | | | SERVICES, | | | | | | CORE | | + +---------+ + + + | TRIGLYCERID | 76 | <150 mg/dL | [facility] | | | ES | | | LABORATORY | | | | | | SERVICES, | | | | | | CORE | | + +---------+ + + + | HDL | 43 | >40 mg/dL | [facility] | | [...] +---------+ + + + | LDL | 62 | <100 mg/dL | [facility] | | | CHOLESTEROL | | | LABORATORY | | | , | | | SERVICES, | | | CALCULATED | | | CORE | | + +---------+ + + + | VLDL | 15 | <31 mg/dL | [facility] | | | CHOLESTEROL | | | LABORATORY | | | , | | | SERVICES, | | | CALCULATED | | | CORE | | + +---------+ + + + | NON-HDL | 77 | <130 mg/dL | [facility] | | [...] [facility] | [address] | [place] [address] | | | SERVICES, CORE | [address] | | | + + + + + HEMOGLOBIN A1C, BLOOD (08/07/2019 11:54 PM PST) + + + + + + | Component | Value | Ref Range | Performed | Pathologist | | | | | At | Signature | + + + + + + | HEMOGLOBIN | 7.2 (H) | <5.7 % | [facility] | | | A1C | | | LABORATORY | | | | | | SERVICES, | | | | | | SPECIAL IMM | | | | | | + COAG | | + + + + + + | ESTIMATED | 160Comment: Unable to | mg/dL | [facility] | | | AVERAGE | calculate Estimated | | LABORATORY | | | GLUCOSE | Average Glucose (eAG). | | SERVICES, | | | | | | SPECIAL IMM | | | | | | + COAG | | + + + + + + + + | Specimen | + + | Blood - Blood | | (substance) | + + + + + | Narrative | Performed At | + + + | Alternate forms of testing such as fructosamine should be | [facility] | | considered for monitoring mcc glycemic control in patients with: | LABORATORY [...] + + | [facility] | [address] | [place] [address] | | | SERVICES, SPECIAL | [address] | | | | IMM + COAG | | | | + + + + + RBC MORPHOLOGY (08/06/2019 11:27 PM PST) + + + + + + | [...] + + + + + + | SPHEROCYTES | 1+(10-25cells/HPF) | | [facility] | | | | [...] [facility] | [address] | [place] [address] | | | SERVICES, CORE | [address] | | | + + + + + MANUAL DIFFERENTIAL (08/06/2019 11:27 PM PST) + + + + + + | Component | Value | Ref Range | Performed | Pathologist | | | | | At | Signature | + + + + + + | NEUTROPHIL | 26.7 (L) | 50.0 - 70.0 % | [facility] | | | % | | | LABORATORY | | | | | | SERVICES, | | | | | | CORE | | + + + + + + | LYMPHOCYTE | 67.2 (H) | 18.0 - 42.0 % | [facility] | | | % | | | LABORATORY | | | | | | SERVICES, | | | | | | CORE | | + + + + + + | MONOCYTE % | 6.0 | 3.5 - 9.0 % | [facility] [...] + + + + | NEUTROPHIL | 0.58 (L) | 1.80 - 7.70 | [facility] | | | # | | K/cu mm | LABORATORY | | | | | | SERVICES, | | | | | | CORE | | + + + + + + | LYMPHOCYTE | 1.46 | 1.00 - 4.80 | [facility] | | | # | | K/cu mm | LABORATORY | | | | | | SERVICES, | | | | | | CORE | | + + + + + + | MONOCYTE # | 0.13 | 0.10 - 0.90 | [facility] | [...] included in the IG count. | SERVICES, CORE | | Bands are included in the neutrophil count. | | + + + + + + + + | Performing | Address | City/State/Zipcode | Phone Number | | Organization | | | | + + + + + | [facility] | [address] | [place] [address] | | | SERVICES, CORE | [address] | | | + + + + + CBC AND AUTO DIFF (08/06/2019 11:27 PM PST) + + + + + + | Component | Value | Ref Range | Performed | Pathologist | | | | | At | Signature | + + + + + + | WHITE CELL | 2.18 (L) | 3.50 - 10.80 | [facility] | | | COUNT | | K/cu mm | LABORATORY | | | | | | SERVICES, | | | | | | CORE | | + + + + + + | RED CELL | 2.54 (L) | 4.00 - 5.20 | [facility] | | | COUNT | | M/cu mm | LABORATORY | | | | | | SERVICES, | | | | | | CORE | | + + + + + + | HEMOGLOBIN | 7.8 (L) | 12.0 - 16.0 | [facility] | | | | | g/dL | LABORATORY | | | | | | SERVICES, | | | | | | CORE | | + + + + + + | HEMATOCRIT | 22.2 (L) | 36.0 - 46.0 % | [...] + + + | RDW SD | 45.6 | 35.1 - 46.3 fL | [facility] | | | | | | LABORATORY | | | | | | SERVICES, | | | | | | CORE | | + + + + + + | PLATELET | 28 (L) | 150 - 400 K/cu | [...] | + + + + + | [facility] | [address] | [place] [address] | | | SERVICES, ANY | [address] | | | + + + + + LDH TOTAL, PLASMA (08/06/2019 11:27 PM PST) + +---------+ + + + | Component | Value | Ref Range | Performed | Pathologist | | | | | At | Signature | + +---------+ + + + | LD TOTAL, | 286 (H) | <=250 U/L | [facility] | [...] [facility] | [address] | [place] [address] | | | SERVICES, CORE | [address] | | | + + + + + URIC ACID, PLASMA (08/06/2019 11:27 PM PST) + +-------+ + + + | Component [...] + + | [facility] | [address] | [place] [address] | | | SERVICES, CORE | [address] | | | + + + + + PHOSPHORUS, PLASMA (08/06/2019 11:27 PM PST) + +-------+ + + + | Component | Value | Ref Range | Performed | Pathologist | | | | | At | Signature | + +-------+ + + + | PHOSPHORUS, | 3.4 | 2.4 - 4.7 mg/dL | [facility] [...] [facility] | [address] | [place] [address] | | | SERVICES, ANY | [address] | | | + + + + + MAGNESIUM, PLASMA (08/06/2019 11:27 PM PST) + +-------+ + + + | Component | Value | Ref Range | Performed | Pathologist | | | | | At | Signature | + +-------+ + + + | MAGNESIUM,P | 1.9 | 1.6 - 2.6 mg/dL | [facility] [...] + + | [facility] | [address] | [place] [address] | | | SERVICES, CORE | [address] | | | + + + + + COMPLETE METABOLIC SET (NA,K,CL,CO2,BUN,CREAT,GLUC,CA,AST,ALT,BILI TOTAL,ALK PHOS,ALB,PROT TOTAL) (08/06/2019 11:27 PM PST) + +---------+ + + + | Component | Value | Ref Range | Performed | Pathologist | | | | | At | Signature | + +---------+ + + + | GLUCOSE, | 179 (H) | 70 - 99 mg/dL | [...] +---------+ + + + | CREATININE | 0.61 | 0.60 - 1.10 | [facility] | | | PLASMA | | mg/dL | LABORATORY | | | (LAB) | | | SERVICES, | | | | | | CORE | | + +---------+ + + + | EGFR | >60 | >60 mL/min | [facility] | | | - | | | LABORATORY | | | SERBIAN | | | SERVICES, | | | [...] +---------+ + + + | POTASSIUM, | 3.6 | 3.4 - 5.0 | [facility] | | | PLASMA | | mmol/L | LABORATORY | | | (LAB) | | | SERVICES, | | | | | | CORE | | + +---------+ + + + | CHLORIDE, | 107 | 97 - 108 mmol/L | [facility] [...] +---------+ + + + | CALCIUM(ALB | 9.6 | 8.6 - 10.2 | [facility] | [...] + + + | ALK PHOS | 52 (L) | 53 - 141 U/L | [facility] | | | | | | LABORATORY | | | | | | SERVICES, | | | | | | CORE | | + +---------+ + + + | AST(SGOT) | 11 | <=41 U/L | [facility] | | | | | | LABORATORY | | | | | | SERVICES, | | | | | | CORE | | + +---------+ + + + | ALT (SGPT) | 18 | <=60 U/L | [facility] | | | | | | LABORATORY | | | | | | SERVICES, | | | | | | CORE | | + +---------+ + + + | ANION GAP | 6 | 4 - 11 mmol/L | [facility] | | | | | | LABORATORY | | | | | | SERVICES, | | | | | | CORE | | + +---------+ + + + | ANION | 8 | 4 - 11 mmol/L [...] +---------+ + + + | BUN/CREATIN | 23 | 8 - 25 | [facility] | [...] MDRD equation recommended by the National | [facility] | | Kidney Disease Education Program. Estimated GFR Interpretive | LABORATORY | | Information: <60 mL/min/1.73 sq m Chronic Kidney | SERVICES, [facility] | | Disease <15 mL/min/1.73 sq m [...] | + + + + + | [facility] | [address] | [place] [address] | | | ANY GUZMAN | [address] | | | + + + + + LEUKEMIA/LYMPHOMA MARKER - BLOOD (08/06/2019 12:05 PM PST) + + + + +----- + | Component | Value | Ref Range | Performed | Path ologist | | | | | At | Sign ature | + + + + +----- + | Final | Peripheral blood, flow | | [facility] | Elec tronically | | Pathologic | cytometric analysis: - | | DEPARTMENT | sign ed by Raymundo | | Diagnosis | Approximately 4% myeloid | | OF | M Joy jordan MD | | | blasts - | | PATHOLOGY | on at | | | Immunophenotype: partial | | | 1:5 4 PM | | | CD7, dim CD11b, dim | | | | | | CD13, CD33, CD34, CD38, | | | | | | CD117, HLA-DRComment: | | | | | | Bone marrow biopsy and | | | | | | correlation with | | | | | | cytogenetic/molecular | | | | | | studies are recommended. 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 | | | | | | CBC:Resulted Date and | | | | | | Time: 08/06/2019 0419 | | | | | | PST | | | | | | | | | | | | Component Result | | | | | | Reference Range WHITE | | | | | | CELL COUNT 2.47 | | | | | | 3.50-10.80 K/cu mm RED | | | | | | CELL COUNT 2.25 | | | | | | 4.00-5.20 M/cu mm | | | | | | HEMOGLOBIN 6.9 | | | | | | 12.0-16.0 g/dL | | | | | | HEMATOCRIT 19.8 | | | | | | 36.0-46.0 % MCV 88.0 | | | | | | 80.0-100.0 fL MCHC 34.8 | | | | | | 32.0-36.0 g/dL RDW SD | | | | | | 47.4 35.1-46.3 fL | | | | | | PLATELET COUNT 29 | | | | | | 150-400 K/cu mm MPV | | | | | | 9.7-12.3 fL NRBC% 0.0 | | | | | | 0.0-0.3 % NRBC# 0.00 | | | | | | 0.00-0.02 K/cu mm MANUAL | | | | | | DIFFERENTIAL | | | | | | | | | | | | Component Result | | | | | | Reference Range | | | | | | NEUTROPHIL % 31.0 | | | | | | 50.0-70.0 % LYMPHOCYTE | | | | | | % 57.5 18.0-42.0 % | | | | | | MONOCYTE % 4.4 3.5-9.0 % | | | | | | EOSINOPHIL % 0.0 | | | | | | 1.0-3.0 % BASOPHIL % 0.0 | | | | | | 0.0-2.0 % IG% 3.5 | | | | | | 0.0-1.0 % METAMYELOCYTES | | | | | | % <1.0 % MYELOCYTES % | | | | | | 0.0 % PROMYELOCYTES % | | | | | | 0.0 % ATYPICAL CELL % | | | | | | 3.5 0.0 % REACTIVE | | | | | | LYMPHS % 0.0-10.0 % | | | | | | PLASMA CELLS % % | | | | | | NEUTROPHIL # 0.77 | | | | | | 1.80-7.70 K/cu mm | | | | | | LYMPHOCYTE # 1.42 | | | | | | 1.00-4.80 K/cu mm | | | | | | MONOCYTE # 0.11 | | | | | | 0.10-0.90 K/cu mm | | | | | | EOSINOPHIL # 0.00 | | | | | | 0.00-0.50 K/cu mm | | | | | | BASOPHIL # 0.00 | | | | | | 0.00-0.10 K/cu mm IG# | | | | | | 0.09 0.00-0.10 K/cu mm | | | | | | METAMYELOCYTES # K/cu | | | | | | mm MYELOCYTES # K/cu | | | | | | mm PROMYELOCYTES # | | | | | | K/cu mm ATYPICAL CELLS # | | | | | | 0.09 K/cu mm REACTIVE | | | | | | LYMPHS # K/cu mm | | | | | | PLASMA CELLS # K/cu mm | | | | | | PERIPHERAL BLOOD | | | | | | MORPHOLOGY:WBC: | | | | | | Neutrophils show a | | | | | | left-shift with | | | | | | approximately 4% | | | | | | circulating blasts. Some | | | | | | neutrophils with | | | | | | hypogranular cytoplasm. | | | | | | RBC: Decreased. | | | | | | Platelets: Decreased. | | | | | | Some large and giant | | | | | | platelets. Platelets | | | | | | with decreased | | | | | | granulation are present. | | | | | | FLOW CYTOMETRIC | | | | | | ANALYSIS: % of | | | | | | total WBC (CD45+)Myeloid | | | | | | Blasts 6 Monocytes 4 | | | | | | Lymphocytes 55 | | | | | | % of | | | | | | LymphocytesB-cells 6 | | | | | | T-Cells 80 NK-cells 9 | | | | | | RatioKappa/Lambda 1.6 | | | | | | CD4/CD8 2.8 Summary: | | | | | | Increased myeloid blasts | | | | | | with the following | | | | | | immunophenotype: partial | | | | | | CD7, dim CD11b, dim | | | | | | CD13, CD33, CD34, CD38, | | | | | | CD117, HLA-DR.Antibodies | | | | | | Tested CD1a CD2 sCD3 | | | | | | cCD3 CD4 CD5 CD7 CD8 | | | | | | CD10 CD11b CD13 CD14 | | | | | | CD15 CD16 CD19 CD20 CD22 | | | | | | CD23 CD25 CD33 CD34 | | | | | | CD38 CD9 CD45 CD56 CD64 | | | | | | cCD79a CD103 CD117 CD123 | | | | | | [id number] HLA-DR sKappa | | | | | | sLambda cTDT cMPO | | | | | |Myeloid Blasts 6 | | | | | |Monocytes 4 | | | | | |Lymphocytes 55 | | | | | | % of Lymphocytes | | | | | |B-cells 6 | | | | | |T-Cells 80 | | | | | |NK-cells 9 | | | | | | Ratio | | | | | |[place]/Lambda 1.6 | | | | | |CD4/CD8 2.8 | | | | | | | | | | | |Summary: Increased myeloid blasts with the following immunophenotype: partial CD7, dim CD11b, dim CD13, CD33, CD34, CD38, CD117, HLA-DR. | | | | | | | | | | | |Antibodies Tested | | | | | |CD1a CD2 sCD3 cCD3 CD4 CD5 CD7 CD8 CD10 CD11b | | | | | |CD13 CD14 CD15 CD16 CD19 CD20 CD22 CD23 CD25 CD33 | | | | | |CD34 CD38 CD9 CD45 CD56 CD64 cCD79a CD103 CD117 CD123 | | | | | |[id number] HLA-DR sKappa sLambda cTDT cMPO | | | | + + + + +----- + | Gross | A Boyce-stained | | [facility] | | | Description | peripheral blood smear | | DEPARTMENT | | | | and/or a cytospin was | | OF | | | | reviewed. | | PATHOLOGY | | + + + + +----- + | Ancillary | Analyte specific | | [facility] | | | Information | reagents are used in | | DEPARTMENT | | | | many laboratory tests | | OF | | | | necessary for standard | | PATHOLOGY | | | | medical care. This test | | | | | | was developed and its | | | | | | performance | | | | | | characteristics | | | | | | determined by [facility] | | | | | | laboratories. It has not | | | | | | been cleared or | | | | | | approved by the US Food | | | | | | and Drug Administration | | | | | | (FDA). FDA does not | | | | | | require this test to go | | | | | | through premarket FDA | | | | | | review. This test is | | | | | | used for clinical | | | | | | purposes. It should not | | | | | | be regarded as | | | | | | investigational or for | | | | | | research. This | | | | | | laboratory is certified | | | | | | under the Clinical | | | | | | Laboratory Improvement | | | | | | Amendments (CLIA) as | | | | | | qualified to perform | | | | | | high complexity clinical | | | | | | laboratory testing. If | | | | | | immunohistochemical | | | | | | analysis (IHC) was | | | | | | performed concurrently | | | | | | with flow cytometry, the | | | | | | IHC was done to allow | | | | | | assessment of | | | | | | immunoarchitecture, | | | | | | which is not supplied by | | | | | | flow cytometry. Flow | | | | | | cytometry enables better | | | | | | assessment of clonality | | | | | | and antigen aberrancy | | | | | | than IHC. Appropriate | | | | | | positive controls and/or | | | | | | negative controls were | | | | | | used for all stains, | | | | | | including | | | | | | immunohistochemical | | | | | | stains, special stains, | | | | | | and in situ | | | | | | hybridization, and these | | | | | | reacted appropriately. | | | | + + + + +----- + + + | Specimen | + + | Blood - Blood | | (substance) | + + + + + + + | Performing | Address | City/State/Zipcode | Phone Number | | Organization | | | | + + + + + | [facility] | [address] | [place] [address] | | | PATHOLOGY | [address] | | | + + + + + X-RAY PORTABLE CHEST 1 VIEW (08/06/2019 10:26 AM PST) + + | Specimen | + + | | + + + + + | Narrative | Performed At | + + + | EXAM: AR CHEST 1 VIEW HISTORY: PICC insertion COMPARISON: | [facility] | | 08/05/2019 FINDINGS: Left upper extremity PICC has been placed | RADIOLOGY VOICE | | with tip projecting in the superior vena cava, approximately 2 cm | RECOGNITION 2 | | above the cavoatrial junction. The cardiomediastinal contour is | | | normal. The lungs are clear. There is no pleural effusion or | | | pneumothorax. There is no pulmonary edema. The bones are intact. | | | IMPRESSION: Left upper extremity PICC tip in the superior vena | | | cava, approximately 2 cm above the cavoatrial junction. Clear | | | lungs. I have personally reviewed the images and, if necessary, | | | edited the report. I agree with the report as now presented. | | | Final signature: Derek Ness MD 08/06/2019 10:33 AM Preliminary: | | | Derek Ness MD Dictation initiated: Derek Ness MD | | | 08/06/2019 10:33 AM | | + + + + + | Procedure Note | + + | Service Account, [employer] Res In Interface - 08/06/2019 10:34 AM PST EXAM: AR CHEST 1 | | VIEW HISTORY: PICC insertion COMPARISON: 08/05/2019 FINDINGS: Left upper extremity PICC | | has been placed with tip projecting in the superior vena cava, approximately 2 cm above | | the cavoatrial junction. The cardiomediastinal contour is normal. The lungs are clear. | | There is no pleural effusion or pneumothorax. There is no pulmonary edema. The bones are | | intact. IMPRESSION: Left upper extremity PICC tip in the superior vena cava, | | approximately 2 cm above the cavoatrial junction. Clear lungs. I have personally | | reviewed the images and, if necessary, edited the report. I agree with the report as now | | presented. Final signature: Derek Ness MD 08/06/2019 10:33 AM Preliminary: Derek | | MD Thi Dictation initiated: Derek Ness MD 08/06/2019 10:33 AM | | | |IMPRESSION: | | | |Left upper extremity PICC tip in the superior vena cava, approximately 2 cm above the cavoa trial junction. | | | |Clear lungs. | | | |I have personally reviewed the images and, if necessary, edited the report. I agree with th e report as now presented. | | | |Final signature: Derek Ness MD 08/06/2019 10:33 AM | |Preliminary: Derek Ness MD | |Dictation initiated: Derek Ness MD 08/06/2019 10:33 AM | + + + +---------+ + + | Performing | Address | City/State/Zipcode | Phone Number | | Organization | | | | + +---------+ + + | [facility] | | | | | VOICE RECOGNITION 2 | | | | + +---------+ + + TRANSTHORACIC ECHOCARDIOGRAM WITH STRAIN - CARDIO MECHANICS, ADULT (08/06/2019 10:21 AM PST ) + + + + + + | Component | Value | Ref Range | Performed | Pathologist | | | | | At | Signature | + + + + + + | AOV VMN | 6.0 | | [facility] | | | (AORTIC | | | OF | | | VALVE) | | | CARDIOLOGY | | + + + + + + | BIPLANE, EF | 67 | | [facility] | | | | | | OF | | | | | | CARDIOLOGY | | + + + + + + | EJECTION | 65 to 70 | | [facility] | | | FRACTION | | | OF | | | | | | CARDIOLOGY | | + + + + + + | LA | 4.0 | | [facility] | | | DIMENSION | | | OF | | | | | | CARDIOLOGY | | + + + + + + | LVIDD | 5.2 | | [facility] | | | | | | OF | | | | | | CARDIOLOGY | | + + + + + + | MV A VMAX | 0.7 | | [facility] [...] + + | MV E VMAX | 0.8 | | [facility] | | | | | | OF | | | | | | CARDIOLOGY | | + + + + + + | MV E/E' | 8.0 | | [facility] | | | (MITRAL | | | OF | | | VALVE) | | | CARDIOLOGY | | + + + + + + | MITRAL | 11.4 | | [facility] | | | ANNULUS | | | OF | | | MEDIAL E/E" | | | CARDIOLOGY | | | (TISSUE | | | | | | DOPPLER) | | | | | + + + + + + | RVSP | 35 | | [facility] | | | | | | OF | | | | | | CARDIOLOGY | | + + + + + + | RV TAPSE | 2.0 | | [facility] | | | | | | OF | | | | | | CARDIOLOGY | | + + + + + + | RV TDI S? | 10.0 | | [facility] | | | | | | OF | | | | | | CARDIOLOGY | | + + + + + + | TR VMAX | 2.6 | | [facility] | | | (TRICUSPID | | | OF | | | VALVE) | | | CARDIOLOGY | | + + + + + + | EJECTION | 67.5 | % | [facility] | | | FRACTION | | | OF | | | RANGE MEAN | | | CARDIOLOGY | | | VALUE | | | | | + + + + + + + + | Specimen | + + | | + + + + + | Narrative | Performed At | + + + | [facility] | [facility] DEPT OF | | [facility] [address] | CARDIOLOGY | | [place], [place] [address] Ph: | | | Pt Name: FIDELIA PICKETT | | | Study Date/Time 08/06/2019 / 10:21:22 AMMRN: [id number] | | | Most recent prior: -Acc #: [id number] | | | No. previous echos: 0DOB: 1950 69 years Heart Rate: | | | 60 bpmHeight: 66.0 in Blood Pressure: | | | 144/59 mm/HgWeight: 229.0 lb Gender: | | | FBSA: 2.12 m | | | Order ID: [id number] Study | | | [facility]: Vonda Holcomb [facility], [facility]ITALReferring Provider: | | | FAM PINZONModwanda Performed: 2D, Color flow, Spectral | | | Doppler, Strain and For the precise quantification of LV volumes and | | | ejection fraction, online 3-D reconstruction was clinically indicated | | | and performed under the concurrent supervision of the interpreting | | | ladder operator.Study Quality: Good.Exam Indication: Cardiotoxic | | | therapiesHistory: y/o w/ hx of HTN and hypothyroidism who was in her | | | usual state of health when she was noted to have pancytopenia and sent | | | to [facility] for further evaluation. Patient history has been obtained | | | from the EHR Transthoracic Echocardiographic Report | | | + | | | ----+ Final Impressions: | | | | | | | | | | | | 1. The left | | | ventricular size is normal. | | | 2. The LV function is normal. | | | 3. The global longitudinal strain | | | is -19.5 % and the LVEF is 66.9 %. | | | | | | 4. Right ventricular size, thickness and function | | | are normal. 5. Moderately dilated left atrium. | | | 6. No | | | significant valvular abnormalities seen. | | | 7. There is mild dilatation of the ascending aorta. (See | | | comments below). | | | | | | | | | 8. There are no prior exams | | | available for comparison. | | | | | | | | | + | | | ----+ LV Function & Strain Data | | | Table:+ + +-------+-------+ Study Date: LVEF | | | (Biplane) GLS 3D LVEF | | | + + +-------+-------+ 08/06/2019 67.0 | | | % -19.5 % 57.0 % + + +-------+-------+ | | | Description of Findings: Cardiac Rhythm: Normal sinus rhythm.Left | | | Ventricle: The left ventricular size is normal. Visually estimated | | | left ventricular ejection fraction is 65 - 70%. The global | | | longitudinal strain is -19.5 %. The LV diastolic filling pattern is | | | normal. The ejection fraction is 66.9 % as measured by Garcia's | | | biplane method. The LV function is normal.Left Ventricular Wall | | | Motion: Left ventricular systolic thickening is normal in all | | | segments.Atria: Left atrial size is moderately dilated. Normal right | | | atrium.Right Ventricle: Right ventricular size, thickness and function | | | are normal. TAPSE measures 2.0cm. The RV TDI s' velocity is | | | 10cm/sec.Aortic Valve: The aortic valve is trileaflet and normal in | | | structure and function. Trace aortic valve regurgitation.Mitral Valve: | | | The mitral valve is structurally normal. No evidence of mitral valve | | | stenosis. Trace mitral valve regurgitation.Tricuspid Valve: The | | | tricuspid valve is structurally normal. Trace tricuspid regurgitation. | | | The tricuspid regurgitant velocity is 2.60 m/s, and with an assumed | | | right atrial pressure of 8 mmHg, the estimated right ventricular | | | systolic pressure is normal at 35.0 mmHg.Pulmonic Valve: The pulmonic | | | valve is structurally normal. Trace pulmonary valve | | | regurgitation.Aorta: There is mild dilatation of the ascending | | | aorta.Venous: The inferior vena cava was dilated, with respiratory | | | size variation greater than 50%.Pericardium: No pericardial effusion | | | is seen. Additional Findings: There are no prior exams.2D Measurements | | | Doppler Measurements 2D NL | | | Values Aortic MitralLVID(d) 5.21 (3.5-5.7cm) | | | Max Raul 1.68 Peak E 0.80 cm | | | m/s m/sLVID(s) | | | 3.34 Mean grad 6.1 Peak A 0.70 | | | cm mmHg | | | m/sIVS(d) 1.04 (0.6-1.1cm) LVOT Raul 1.03 E/A | | | Ratio 1.15 cm | | | m/sLVPW(d) 0.87 (0.6-1.1cm) LVOT VTI 0.291 TDI (E/e') 8.0 | | | cm mLA A/Ps 2D | | | 4.04 (2.7-3.9cm) LVOT Diam 2.13 MV mn gd cm | | | cmLA vol A/L 57.8 (16-34) | | | LVOT SV 48.7 MR EROindex ml/m | | | indexed ml/m | | | LVEDV 51.22 Tricuspid | | | Pulmonicindex ml/m | | | TR Vmax 2.60 PV Vmax 1.0Biplane EF | | | 66.9 % m/s | | | m/sGLS % -19.5 RA Press 8 RVOT VTI | | | 15.6 % | | | mmHg cm | | | RVSP 35 PV mn gd | | | mmHg | | | Aorta: Index: | | | Ao Sinus 2.92 (2.1-3.5cm) | | | cm | | | Asc Ao 3.90 | | | (prox) cmEvaluation of chamber size and geometry is | | | accomplished through the incorporation of linear, volumetric, and | | | indexed values Report electronically signed by: [id number] Eric | | | Riley WORTHY, PhD (08/06/2019, 11:56:44 AM)Fellow(s) participating in | | | diagnosis: Corina Luke; Final | | | % mmHg cm | | | RVSP 35 PV mn gd | | | mmHg | | | | | | Aorta: Index: | | | Ao Sinus 2.92 (2.1-3.5cm) | | | cm | | | Asc Ao 3.90 | | | (prox) cm | | |Evaluation of chamber size and geometry is accomplished through the incorporation of | | |linear, volumetric, and indexed values | | | | | |Report electronically signed by: [id number] Eric Lin MD, PhD (08/06/2019, | | |11:56:44 AM) | | |Fellow(s) participating in diagnosis: Corina Luke; | | | | | | | | | | | | Final | | + + + + + | Procedure Note | + + | Interface, Cardiology Results - 08/06/2019 11:56 AM [facility] | | [facility] | | [place], [place] [address] Pt Name: FIDELIA ALARCON | | NELA Study Date/Time 08/06/2019 / 10:21:22 AMMRN: [id number] Most | | recent prior: -[employer] #: [id number] No. previous echos: 0DOB: 1950 69 | | years Heart Rate: 60 bpmHeight: 66.0 in Blood Pressure: 144/59 | | mm/HgWeight: 229.0 lb Gender: FBSA: 2.12 m | | Order ID: [id number] Study Location: [address] [place], [place] [address]grapher: Vonda Larissa | | [facility] Provider: FAM Chinchilla Performed: 2D, Color flow, | | Spectral Doppler, Strain and For the precise quantification of LV volumes and ejection | | fraction, online 3-D reconstruction was clinically indicated and performed under the | | concurrent supervision of the interpreting ladder operator.Study Quality: Good.Exam | | Indication: Cardiotoxic therapiesHistory: y/o w/ hx of HTN and hypothyroidism who was in | | her usual state of health when she was noted to have pancytopenia and sent to [facility] for | | further evaluation. Patient history has been obtained from the EHR Transthoracic | | Echocardiographic | | Report+ + Final | | Impressions: | | | | 1. The left ventricular size is normal. | | 2. The LV function is normal. | | 3. The global longitudinal strain is -19.5 % and the LVEF is 66.9 %. | | 4. Right | | ventricular size, thickness and function are normal. 5. Moderately dilated | | left atrium. 6. No significant valvular | | abnormalities seen. 7. There is mild dilatation of the | | ascending aorta. (See comments below). | | | | 8. There are no prior exams available for comparison. | | | | + + LV Function | | & Strain Data Table:+ + +-------+-------+ Study Date: LVEF | | (Biplane) GLS 3D LVEF + + +-------+-------+ 08/06/2019 | | 67.0 % -19.5 % 57.0 % + + +-------+-------+ Description of | | Findings: Cardiac Rhythm: Normal sinus rhythm.Left Ventricle: The left ventricular size | | is normal. Visually estimated left ventricular ejection fraction is 65 - 70%. The global | | longitudinal strain is -19.5 %. The LV diastolic filling pattern is normal. The | | ejection fraction is 66.9 % as measured by Garcia's biplane method. The LV function is | | normal.Left Ventricular Wall Motion: Left ventricular systolic thickening is normal in | | all segments.Atria: Left atrial size is moderately dilated. Normal right atrium.Right | | Ventricle: Right ventricular size, thickness and function are normal. TAPSE measures | | 2.0cm. The RV TDI s' velocity is 10cm/sec.Aortic Valve: The aortic valve is trileaflet | | and normal in structure and function. Trace aortic valve regurgitation.Mitral Valve: The | | mitral valve is structurally normal. No evidence of mitral valve stenosis. Trace mitral | | valve regurgitation.Tricuspid Valve: The tricuspid valve is structurally normal. Trace | | tricuspid regurgitation. The tricuspid regurgitant velocity is 2.60 m/s, and with an | | assumed right atrial pressure of 8 mmHg, the estimated right ventricular systolic | | pressure is normal at 35.0 mmHg.Pulmonic Valve: The pulmonic valve is structurally | | normal. Trace pulmonary valve regurgitation.Aorta: There is mild dilatation of the | | ascending aorta.Venous: The inferior vena cava was dilated, with respiratory size | | variation greater than 50%.Pericardium: No pericardial effusion is seen. Additional | | Findings: There are no prior exams.2D Measurements Doppler Measurements | | 2D NL Values Aortic MitralLVID(d) 5.21 (3.5-5.7cm) Max Raul | | 1.68 Peak E 0.80 cm m/s | | m/sLVID(s) 3.34 Mean grad 6.1 Peak A 0.70 cm | | mmHg m/sIVS(d) 1.04 (0.6-1.1cm) LVOT Raul 1.03 E/A | | Ratio 1.15 cm m/sLVPW(d) 0.87 (0.6-1.1cm) | | LVOT VTI 0.291 TDI (E/e') 8.0 cm mLA A/Ps 2D 4.04 | | (2.7-3.9cm) LVOT Diam 2.13 MV mn gd cm cmLA vol | | A/L 57.8 (16-34) LVOT SV 48.7 MR EROindex ml/m | | indexed ml/m | | LVEDV 51.22 Tricuspid Pulmonicindex ml/m | | TR Vmax 2.60 PV Vmax 1.0Biplane EF 66.9 % | | m/s m/sGLS % -19.5 RA Press 8 RVOT VTI 15.6 | | % mmHg cm | | RVSP 35 PV mn gd mmHg | | Aorta: Index: Ao Sinus | | 2.92 (2.1-3.5cm) cm | | Asc Ao 3.90 (prox) cmEvaluation of chamber size and | | geometry is accomplished through the incorporation of linear, volumetric, and indexed | | values Report electronically signed by: [id number] Eric Lin MD, PhD (08/06/2019, | | 11:56:44 AM)Fellow(s) participating in diagnosis: Corina Luke; Final | |Mitral Valve: The mitral valve is structurally normal. No evidence of mitral valve | |stenosis. Trace mitral valve regurgitation. | |Tricuspid Valve: The tricuspid valve is structurally normal. Trace tricuspid | |regurgitation. The tricuspid regurgitant velocity is 2.60 m/s, and with an assumed | |right atrial pressure of 8 mmHg, the estimated right ventricular systolic pressure is | | normal at 35.0 mmHg. | |Pulmonic Valve: The pulmonic valve is structurally normal. Trace pulmonary valve | |regurgitation. | |Aorta: There is mild dilatation of the ascending aorta. | |Venous: The inferior vena cava was dilated, with respiratory size variation greater | |than 50%. | |Pericardium: No pericardial effusion is seen. | | | |Additional Findings: There are no prior exams. | |2D Measurements Doppler Measurements | | | | 2D NL Values Aortic Mitral | |LVID(d) 5.21 (3.5-5.7cm) Max Raul 1.68 Peak E 0.80 | | cm m/s m/s | |LVID(s) 3.34 Mean grad 6.1 Peak A 0.70 | | cm mmHg m/s | |IVS(d) 1.04 (0.6-1.1cm) LVOT Raul 1.03 E/A Ratio 1.15 | | cm m/s | |LVPW(d) 0.87 (0.6-1.1cm) LVOT VTI 0.291 TDI (E/e') 8.0 | | cm m | |LA A/Ps 2D 4.04 (2.7-3.9cm) LVOT Diam 2.13 MV mn gd | | cm cm | |LA vol A/L 57.8 (16-34) LVOT SV 48.7 MR ERO | |index ml/m indexed ml/m | |LVEDV 51.22 Tricuspid Pulmonic | |index ml/m TR Vmax 2.60 PV Vmax 1.0 | |Biplane EF 66.9 % m/s m/s | |GLS % -19.5 RA Press 8 RVOT VTI 15.6 | | % mmHg cm | | RVSP 35 PV mn gd | | mmHg | | | | Aorta: Index: | | Ao Sinus 2.92 (2.1-3.5cm) | | cm | | Asc Ao 3.90 | | (prox) cm | |Evaluation of chamber size and geometry is accomplished through the incorporation of | |linear, volumetric, and indexed values | | | |Report electronically signed by: [id number] Eric Lin MD, PhD (08/06/2019, | |11:56:44 AM) | |Fellow(s) participating in diagnosis: Corina Luke; | | | | | | | | Final | + + + + + + + | Performing | Address | City/State/Zipcode | Phone Number | | Organization | | | | + + + + + | [facility] | [address] | [place], [place] | | | CARDIOLOGY | [address] | [address] | | + + + + + [facility] (08/06/2019 10:17 AM PST) + + + | Narrative | Performed At | + + + | Rosemary Young RN 08/06/2019 3:23 PM PICC LINE Performed by: Rosemary | | | LIA Young Authorized by: Sheri Rosado MD PICC/Midline | | | Insertion Procedure Note Indications:Chemo and Frequent lab draws | | | Diagnosis: Leukemia Procedure location: Unit:14 Room: 16 | | | Providers: Attending name: Attending physically present: No PICC | | | Nurse name: Rosemary Young RN Assisted by Rosemary Lino RN | | | Pre-Procedure Consent: written consent obtainedConsent given by: | | | Patient Patient identity confirmed per protocol: Yes Team Pause: | | | Immediatly prior to the procedure a pause per protocol was called. A | | | pause verifies correct patient, procedure, equipment, technician support association | | | and site/side marked as required. CLABSI Prevention Bundle: | | | Skin preparation: Chloraprep Protective barrier: Cap, Mask, | | | Hand scrub, Gown, Gloves and Full body drape. Cap and mask worn by | | | assistive personnel. Sterile Ultrasound techniques (sterile gel, and | | | sterile probe cover) used Dressing: Dressing | | | applied prior of removal of full barrier drape and hemostatic agent | | | applied Sedation/Anesthesia/Analgesia Local Anesthetic: | | | Lidocaine 1% w/o epinephrine Anesthetic total (ml): 1 | | | Procedure Details Patient was placed in appropriate position The | | | vascular anatomy was identified by Ultrasound Guidance. wire through | | | the needle, introducer over the wire, then catheter through the | | | introducer Tip was placed using TLS (Tip Locating System) and TPS | | | (Tip Positioning System). . A non-tunneled PICC Double lumen 5fr | | | was placed in the Left Arm area Basilic vein. Catheter lot number: | | | [id number] with a length of 55 cm was selected and trimmed 8 to | | | a remaining length of 47 cm All ports aspirated for blood and | | | flushed with salineProcedure comments: Preference LUE,vein diameter | | | 0.50 cm, circumference 34 cmOpen-ended or valved line: Valved | | | Power-injectable line: yes Attempts 1 attempt(s) were made | | | Complications None PICC catheter tip location Chest | | | radiograph ordered to verify placement and Line verified by | | | radiograph Adjustments made after chest film obtained: none External | | | measurement of catheter exposed: 2 cm. PICC catheter tip location: | | | Distal SVC Radiologist confirmed tip position Estimated blood | | | loss: <10mL | | + + + VAT: PICC INSERTION W/US (08/06/2019 8:13 AM PST) + + | Specimen | + + | | + + + + + | Narrative | Performed At | + + + | See procedure note. | [facility] | | | RADIOLOGY | + + + + +---------+ + + | Performing | Address | City/State/Zipcode | Phone Number | | Organization | | | | + +---------+ + + | [facility] | | | | + +---------+ + + CONFIRMATORY ABO/RH (08/06/2019 6:44 AM PST) + + + + + + | [...] | + + + + + | [facility] | [address] | [place] [address] | | | SERVICES, | [address] | | | | TRANSFUSION MEDICINE | | | | + + + + + PRODUCT - RED CELLS LEUKOREDUCED (08/06/2019 4:54 AM PST) + + + + + + | [...] + + + + | PRODUCT | [id number] | | [facility] | | | UNIT [...] + + + + | EXPIRATION | [id number] | | [facility] | | | DATE [...] + + + + | BLOOD | [id number] | | [facility] | | | PRODUCT [...] LABORATORY | [address] | [place] [address] | | | SERVICES, | [address] | | | | TRANSFUSION MEDICINE | | | | + + + + + LDH TOTAL, PLASMA (08/06/2019 3:57 AM PST) + +---------+ + + + | Component | Value | Ref Range | Performed | Pathologist | | | | | At | Signature | + +---------+ + + + | LD TOTAL, | 291 (H) | <=250 U/L | [facility] | [...] [facility] | [address] | [place] [address] | | | SERVICES, CORE | [address] | | | + + + + + URIC ACID, PLASMA (08/06/2019 3:57 AM PST) + +-------+ + + + | Component | Value | Ref Range | Performed | Pathologist | | | | | At | Signature | + +-------+ + + + | URIC ACID, | 4.0 | 2.5 - 6.2 mg/dL | [facility] [...] | + + + + + | [facility] | [address] | [place] [address] | | | SERVICES, CORE | [address] | | | + + + + + PHOSPHORUS, PLASMA (08/06/2019 3:57 AM PST) + +-------+ + + + | Component | Value | Ref Range | Performed | Pathologist | | | | | At | Signature | + +-------+ + + + | PHOSPHORUS, | 3.6 | 2.4 - 4.7 mg/dL | [facility] [...] | + + + + + | [facility] | [address] | [place] [address] | | | SERVICES, CORE | [address] | | | + + + + + MAGNESIUM, PLASMA (08/06/2019 3:57 AM PST) + +-------+ + + + | Component | Value | Ref Range | Performed | Pathologist | | | | | At | Signature | + +-------+ + + + | MAGNESIUM,P | 2.1 | 1.6 - 2.6 mg/dL | [facility] | | | LASMA | | | [...] | + + + + + | [facility] | [address] [facility] | [place] [address] | | | SERVICES, CORE | [address] | | | + + + + + COMPLETE METABOLIC SET (NA,K,CL,CO2,BUN,CREAT,GLUC,CA,AST,ALT,BILI TOTAL,ALK PHOS,ALB,PROT TOTAL) (08/06/2019 3:57 AM PST) + +---------+ + + + | Component | Value | Ref Range | Performed | Pathologist | | | | | At | Signature | + +---------+ + + + | GLUCOSE, | 168 (H) | 70 - 99 mg/dL | [...] +---------+ + + + | CREATININE | 0.68 | 0.60 - 1.10 | [facility] | | | PLASMA | | mg/dL | LABORATORY | | | (LAB) | | | SERVICES, | | | | | | CORE | | + +---------+ + + + | EGFR | >60 | >60 mL/min | [facility] | | | - | | | LABORATORY | | | SERBIAN | | | SERVICES, | | | | | | CORE | | + +---------+ + + + | EGFR NON | >60 | >60 mL/min | [facility] | | | -[facility] | | | LABORATORY | | | RICAN | | | SERVICES, | | | | | | CORE | | + +---------+ + + + | SODIUM, | 141 | 136 - 145 | [facility] | [...] +---------+ + + + | CHLORIDE, | 109 (H) | 97 - 108 mmol/L | [facility] [...] +---------+ + + + | CALCIUM(ALB | 10.1 | 8.6 - 10.2 | [facility] | [...] +---------+ + + + | TOTAL | 6.8 | 6.4 - 8.2 g/dL | [facility] [...] + + + | ALK PHOS | 53 | 53 - 141 U/L | [facility] | | | | | | LABORATORY | | | | | | SERVICES, | | | | | | CORE | | + +---------+ + + + | AST(SGOT) | 11 | <=41 U/L | [facility] | | | | | | LABORATORY | | | | | | SERVICES, | | | | | | CORE | | + +---------+ + + + | ALT (SGPT) | 16 | <=60 U/L | [facility] | | | | | | LABORATORY | | | | | | SERVICES, | | | | | | CORE | | + +---------+ + + + | ANION GAP | 6 | 4 - 11 mmol/L | [facility] | | | | | | LABORATORY | | | | | | SERVICES, | | | | | | CORE | | + +---------+ + + + | ANION | 8 | 4 - 11 mmol/L [...] +---------+ + + + | GLOBULIN | 3.8 (H) | 2.3 - 3.5 gm/dL | [...] [facility] | [address] | [place] [address] | | | SERVICES, CORE | [address] | | | + + + + + RBC MORPHOLOGY (08/06/2019 3:56 AM PST) + + + + + + | Component | Value | Ref Range | Performed | Pathologist | | | | | At | Signature | + + + + + + | SCHISTOCYTE | 1+ (1-4 cells/HPF) | | [facility] | | | S | | | LABORATORY | | | | | | MEGAN, | | | | | | ANY | | + + + + + [...] LABORATORY | [address] | [place] [address] | | | SERVICES, CORE | [address] | | | + + + + + MANUAL DIFFERENTIAL (08/06/2019 3:56 AM PST) + + + + + + | Component | Value | Ref Range | Performed | Pathologist | | | | | At | Signature | + + + + + + | NEUTROPHIL | 31.0 (L) | 50.0 - 70.0 % | [facility] | | | % | | | LABORATORY | | | | | | SERVICES, | | | | | | CORE | | + + + + + + | LYMPHOCYTE | 57.5 (H) | 18.0 - 42.0 % | [facility] | | | % | | | LABORATORY | | | | | | SERVICES, | | | | | | CORE | | + + + + + + | MONOCYTE % | 4.4 | 3.5 - 9.0 % | [facility] [...] + + + + | IG% | 3.5 (H) | 0.0 - 1.0 % | [facility] | | | | | | LABORATORY | | | | | | SERVICES, | | | | | | CORE | | + + + + + + | ATYPICAL | 3.5 (H)Comment: Fine | 0.0 % | [facility] | | | CELL % | chromatin, High N:C | | LABORATORY | | | | ratio, Irregular nuclear | | SERVICES, | | | | contours | | CORE | | + + + + + + | NEUTROPHIL | 0.77 (L) | 1.80 - 7.70 | [facility] | | | # | | K/cu mm | LABORATORY | | | | | | SERVICES, | | | | | | CORE | | + + + + + + | LYMPHOCYTE | 1.42 | 1.00 - 4.80 | [facility] | | | # | | K/cu mm | LABORATORY | | | | | | SERVICES, | | | | | | CORE | | + + + + + + | MONOCYTE # | 0.11 | 0.10 - 0.90 | [facility] | [...] + + + + | ATYPICAL | 0.09 | K/cu mm | [facility] | | [...] included in the IG count. | SERVICES, CORE | | Bands are included in the neutrophil count. | | + + + + + + + + | Performing | Address | City/State/Zipcode | Phone Number | | Organization | | | | + + + + + | [facility] | [address] | [place] [address] | | | SERVICES, CORE | [address] | | | + + + + + CBC AND AUTO DIFF (08/06/2019 3:56 AM PST) + + + + + + | Component | Value | Ref Range | Performed | Pathologist | | | | | At | Signature | + + + + + + | WHITE CELL | 2.47 (L) | 3.50 - 10.80 | [facility] | | | COUNT | | K/cu mm | LABORATORY | | | | | | SERVICES, | | | | | | CORE | | + + + + + + | RED CELL | 2.25 (L) | 4.00 - 5.20 | [facility] | | | COUNT | | M/cu mm | LABORATORY | | | | | | SERVICES, | | | | | | CORE | | + + + + + + | HEMOGLOBIN | 6.9 (L) | 12.0 - 16.0 | [facility] | | | | | g/dL | LABORATORY | | | | | | SERVICES, | | | | | | CORE | | + + + + + + | HEMATOCRIT | 19.8 (L) | 36.0 - 46.0 % | [facility] | | | | | | LABORATORY | | | | | | SERVICES, | | | | | | CORE | | + + + + + + | MCV | 88.0 | 80.0 - 100.0 fL | [facility] [...] + + + | RDW SD | 47.4 (H) | 35.1 - 46.3 fL | [facility] | | | | | | LABORATORY | | | | | | SERVICES, | | | | | | CORE | | + + + + + + | PLATELET | 29 (L) | 150 - 400 K/cu | [...] | + + + + + | [facility] | [address] | [place] [address] | | | SERVICES, CORE | [address] | | | + + + + + COAGULOPATHY PANEL (INR,APTT,FIBRINOGEN) (08/06/2019 3:56 AM PST) + +-------+ + + + | Component | Value | Ref Range | Performed | Pathologist | | | | | At | Signature | + +-------+ + + + | INR | 1.17 | 0.90 - 1.20 INR | [facility] | | | | | | LABORATORY | | | | | | SERVICES, | | | | | | CORE | | + +-------+ + + + | APTT | 34.5 | 26.0 - 36.0 | [facility] | | | | | seconds | LABORATORY | | | | | | SERVICES, | | | | | | CORE | | + +-------+ + + + | FIBRINOGEN | 438 | 150 - 450 mg/dL | [facility] | | | LEVEL | | | LABORATORY | | | | | | SERVICES, | | | | | | CORE | | + +-------+ + + + + + | Specimen | + + | Blood - Blood | | (substance) | + + + + + | Narrative | Performed At | + + + | INR Therapeutic ranges for full anticoagulation: INR for | [facility] | | Venous Thromboembolism (2.0 - 3.0) INR INR for | LABORATORY | | most patients with mech. valves (2.5 - 3.5) INR APTT values for | SERVICES, CORE | | monitoring heparin therapy may be affected by specimens processed >1 | | | hour after collection. APTT Therapeutic Range: | | | (75 - 120) sec Heparin levels of 0.35 - 0.7 U/mL | | | | | + + + + + + + + | Performing | Address | City/State/Zipcode | Phone Number | | Organization | | | | + + + + + | [facility] | [address] | [place] [address] | | | SERVICES, [facility] | [address] | | | + + + + + X-RAY CHEST 1 VIEW (08/06/2019 12:05 AM PST) + + | Specimen | + + | | + + + + + | Narrative | Performed At | + + + | EXAM: CHEST 1 VIEW HISTORY: fever COMPARISON: None. | [facility] | | FINDINGS: The cardiomediastinal contour is normal. The lungs are | RADIOLOGY VOICE | | clear. There is no pleural effusion or pneumothorax. There is no | RECOGNITION 2 | | pulmonary edema. The bones are intact. IMPRESSION: Clear | | | lungs. I have personally reviewed the images and, if necessary, | | | edited the report. I agree with the report as now presented. | | | Final signature: Derek Ness MD 08/06/2019 8:13 AM Preliminary: | | | Derek Ness MD Dictation initiated: Derek Ness MD | | | 08/06/2019 8:13 AM | | + + + + + | Procedure Note | + + | Service Account, Radiant Res In Interface - 08/06/2019 8:14 AM PST EXAM: CHEST 1 | | VIEW HISTORY: fever COMPARISON: None. FINDINGS: The cardiomediastinal contour is | | normal. The lungs are clear. There is no pleural effusion or pneumothorax. There is no | | pulmonary edema. The bones are intact. IMPRESSION: Clear lungs. I have personally | | reviewed the images and, if necessary, edited the report. I agree with the report as now | | presented. Final signature: Derek Ness MD 08/06/2019 8:13 AM Preliminary: Derek | | MD Thi Dictation initiated: Derek Ness MD 08/06/2019 8:13 AM | | | |The cardiomediastinal contour is normal. The lungs are clear. There is no pleural effusion or pneumothorax. There is no pulmonary edema. The bones are intact. | | | |IMPRESSION: | | | |Clear lungs. | | | |I have personally reviewed the images and, if necessary, edited the report. I agree with th e report as now presented. | | | |Final signature: Derek Ness MD 08/06/2019 8:13 AM | |Preliminary: Derek Ness MD | |Dictation initiated: Derek Ness MD 08/06/2019 8:13 AM | + + + +---------+ + + | Performing | Address | City/State/Zipcode | Phone Number | | Organization | | | | + +---------+ + + | [facility] | | | | | VOICE RECOGNITION 2 | | | | + +---------+ + + CULTURE, BLOOD BACTI & YEAST [facility] (08/05/2019 9:11 PM PST) + + + + + + | [...] Specimen | + + | Blood - Structure of | | right forearm (body | | structure) | + + + + + + + | Performing | Address | City/State/Zipcode | Phone Number | | Organization | | | | + + + + + | [facility] | [address] | [place] [address] | | | SERVICES, CORE | [address] | | | + + + + + CULTURE, BLOOD BACTI & YEAST [facility] (08/05/2019 9:11 PM PST) + + + + + + | [...] Specimen | + + | Blood - Structure of | | left hand (body | | structure) | + + + + + + + | Performing | Address | City/State/Zipcode | Phone Number | | Organization | | | | + + + + + | [facility] | [address] | [place] [address] | | | SERVICES, CORE | [address] | | | + + + + + LDH TOTAL, PLASMA (08/05/2019 7:29 PM PST) + +---------+ + + + | Component | Value | Ref Range | Performed | Pathologist | | | | | At | Signature | + +---------+ + + + | LD TOTAL, | 339 (H) | <=250 U/L | [facility] | [...] | + + + + + | [facility] | [address] | [place] [address] | | | SERVICES, CORE | [address] | | | + + + + + PHOSPHORUS, PLASMA (08/05/2019 7:29 PM PST) + +-------+ + + + | Component | Value | Ref Range | Performed | Pathologist | | | | | At | Signature | + +-------+ + + + | PHOSPHORUS, | 2.8 | 2.4 - 4.7 mg/dL | [facility] [...] + + | [facility] | [address] | [place] [address] | | | SERVICES, CORE | [address] | | | + + + + + URIC ACID, PLASMA (08/05/2019 7:29 PM PST) + +-------+ + + + | Component | Value | Ref Range | Performed | Pathologist | | | | | At | Signature | + +-------+ + + + | URIC ACID, | 4.2 | 2.5 - 6.2 mg/dL | [facility] [...] + + | [facility] | [address] | [place] [address] | | | SERVICES, CORE | [address] | | | + + + + + MANUAL DIFFERENTIAL (08/05/2019 7:29 PM PST) + + + + + + | Component | Value | Ref Range | Performed | Pathologist | | | | | At | Signature | + + + + + + | NEUTROPHIL | 30.7 (L) | 50.0 - 70.0 % | [facility] | | | % | | | LABORATORY | | | | | | SERVICES, | | | | | | CORE | | + + + + + + | LYMPHOCYTE | 65.8 (H) | 18.0 - 42.0 % | [facility] | | | % | | | LABORATORY | | | | | | SERVICES, | | | | | | CORE | | + + + + + + | MONOCYTE % | 0.0 (L) | 3.5 - 9.0 % | [...] + + + + | ATYPICAL | 3.5 (H) | 0.0 % | [facility] | | | CELL % | | | LABORATORY | | | | | | SERVICES, | | | | | | CORE | | + + + + + + | NEUTROPHIL | 0.74 (L) | 1.80 - 7.70 | [facility] | | | # | | K/cu mm | LABORATORY | | | | | | SERVICES, | | | | | | CORE | | + + + + + + | LYMPHOCYTE | 1.58 | 1.00 - 4.80 | [facility] | | | # | | K/cu mm | LABORATORY | | | | | | SERVICES, | | | | | | CORE | | + + + + + + | MONOCYTE # | 0.00 (L) | 0.10 - 0.90 | [facility] [...] + + + + | ATYPICAL | 0.08 | K/cu mm | [facility] | | [...] included in the IG count. | SERVICES, CORE | | Bands are included in the neutrophil count. | | + + + + + + + + | Performing | Address | City/State/Zipcode | Phone Number | | Organization | | | | + + + + + | [facility] | [address] | [place] [address] | | | [facility] [place] | [address] | | | + + + + + RAINBOW HOLD TUBE - BLUE TOP (08/05/2019 7:29 PM PST) + + | Specimen | + + | Blood - Blood | | (substance) | + + + + + + + | Performing | Address | City/State/Zipcode | Phone Number | | Organization | | | | + + + + + | [facility] | [address] | [place] [address] | | | [place] | [address] | | | + + + + + CBC AND AUTO DIFF (08/05/2019 7:29 PM PST) + + + + + + | Component | Value | Ref Range | Performed | Pathologist | | | | | At | Signature | + + + + + + | WHITE CELL | 2.40 (L) | 3.50 - 10.80 | [facility] | | | COUNT | | K/cu mm | LABORATORY | | | | | | SERVICES, | | | | | | CORE | | + + + + + + | RED CELL | 2.69 (L) | 4.00 - 5.20 | [facility] | | | COUNT | | M/cu mm | LABORATORY | | | | | | SERVICES, | | | | | | CORE | | + + + + + + | HEMOGLOBIN | 8.0 (L) | 12.0 - 16.0 | [facility] | | | | | g/dL | LABORATORY | | | | | | SERVICES, | | | | | | CORE | | + + + + + + | HEMATOCRIT | 23.4 (L) | 36.0 - 46.0 % | [facility] | | | | | | LABORATORY | | | | | | SERVICES, | | | | | | CORE | | + + + + + + | MCV | 87.0 | 80.0 - 100.0 fL | [facility] | | | | | | LABORATORY | | | | | | SERVICES, | | | | | | CORE | | + + + + + + | MCHC | 34.2 | 32.0 - 36.0 | [facility] | | | | | g/dL | LABORATORY | | | | | | SERVICES, | | | | | | CORE | | + + + + + + | RDW SD | 47.0 (H) | 35.1 - 46.3 fL | [facility] | | | | | | LABORATORY | | | | | | SERVICES, | | | | | | CORE | | + + + + + + | PLATELET | 36 (L) | 150 - 400 K/cu | [...] [facility] | [address] | [place] [address] | | | SERVICES, CORE | [address] | | | + + + + + ANTIBODY SCREEN (08/05/2019 7:29 PM PST) + + + + + + | [...] + + | [facility] | [address] | [place] [address] | | | SERVICES, | [address] | | | | TRANSFUSION MEDICINE | | | | + + + + + ABO & RH TYPE (08/05/2019 7:29 PM PST) + + + + + + | [...] [facility] | [address] | [place] [address] | | | SERVICES, | [address] | | | | TRANSFUSION MEDICINE | | | | + + + + + COMPLETE METABOLIC SET (NA,K,CL,CO2,BUN,CREAT,GLUC,CA,AST,ALT,BILI TOTAL,ALK PHOS,ALB,PROT TOTAL) (08/05/2019 7:29 PM PST) + +---------+ + + + | Component | Value | Ref Range | Performed | Pathologist | | | | | At | Signature | + +---------+ + + + | GLUCOSE, | 296 (H) | 70 - 99 mg/dL | [facility] | | | PLASMA | | | LABORATORY | | | (LAB) | | | SERVICES, | | | | | | CORE | | + +---------+ + + + | BUN, PLASMA | 20 | 6 - 20 mg/dL | [facility] | | | (LAB) | | | LABORATORY | | | | | | SERVICES, | | | | | | CORE | | + +---------+ + + + | CREATININE | 0.67 | 0.60 - 1.10 | [facility] | | | PLASMA | | mg/dL | LABORATORY | | | (LAB) | | | SERVICES, | | | | | | CORE | | + +---------+ + + + | EGFR | >60 | >60 mL/min | [facility] | | | - | | | LABORATORY | | | SERBIAN | | | SERVICES, | | | [...] +---------+ + + + | POTASSIUM, | 3.7 | 3.4 - 5.0 | [facility] | | | PLASMA | | mmol/L | LABORATORY | | | (LAB) | | | SERVICES, | | | | | | CORE | | + +---------+ + + + | CHLORIDE, | 103 | 97 - 108 mmol/L | [facility] | | | PLASMA | | | LABORATORY | | | (LAB) | | | SERVICES, | | | | | | CORE | | + +---------+ + + + | TOTAL CO2, | 25 | 21 - 32 mmol/L | [facility] | | | PLASMA | | | LABORATORY | | | (LAB) | | | SERVICES, | | | | | | CORE | | + +---------+ + + + | CALCIUM, | 9.5 | 8.6 - 10.2 | [facility] | | | PLASMA | | mg/dL | LABORATORY | | | (LAB) | | | SERVICES, | | | | | | CORE | | + +---------+ + + + | CALCIUM(ALB | 9.8 | 8.6 - 10.2 | [...] +---------+ + + + | TOTAL | 7.9 | 6.4 - 8.2 g/dL | [facility] | | | PROTEIN, | | | LABORATORY | | | PLASMA | | | SERVICES, | | | (LAB) | | | CORE | | + +---------+ + + + | ALBUMIN, | 3.6 | 3.5 - 4.7 g/dL | [facility] | | | PLASMA | | | LABORATORY | | | (LAB) | | | SERVICES, | | | | | | CORE | | + +---------+ + + + | ALK PHOS | 65 | 53 - 141 U/L | [facility] [...] + + + | ANION GAP | 7 | 4 - 11 mmol/L | [facility] | | | | | | LABORATORY | | | | | | SERVICES, | | | | | | CORE | | + +---------+ + + + | ANION | 8 | 4 - 11 mmol/L [...] +---------+ + + + | BUN/CREATIN | 30 (H) | 8 - 25 | [facility] | | | INE RATIO | | | LABORATORY | | | | | | SERVICES, | | | | | | CORE | | + +---------+ + + + | GLOBULIN | 4.3 (H) | 2.3 - 3.5 gm/dL | [...] | + + + + + | [facility] | [address] | [place] [address] | | | SERVICES, CORE | [address] | | | + + + [...] | acetaminophen (TYLENOL) tablet | Given | 08/07/19 | 650 mg | | | | 325-650 mg 325-650 mg, oral, | | 20 8:51 | | | | | EVERY 4 HOURS NEEDED, Starting | | PM PST | | | | | 08/05/19 at 2227, Until Sat | | | | | | | 08/09/19 at 0019, mild pain, fever, | | | | | | | blood product premedication | | | | | | + +--------+ +--------+------+------+ +-------+ +--------+---+---+ | Given | 08/07/19 | 650 mg | | | | | 20 3:06 | | | | | | PM PST | | | | +-------+ +--------+---+---+ +---+---+ | | | +---+---+ + +-------+ +--------+---+---+ | acyclovir (ZOVIRAX) tablet 800 | Given | 08/08/19 | 800 mg | | | | mg 800 mg, oral, DAILY, First | | 20 8:01 | | | | | dose on Sun08/06/19 at 0900, Until | | AM PST | | | | | Discontinued | | | | | | + +-------+ +--------+---+---+ +-------+ +--------+---+---+ | Given | 08/07/19 | 800 mg | | | | | 20 9:08 | | | | | | AM PST | | | | +-------+ +--------+---+---+ | Given | 08/06/19 | 800 mg | | | | | 20 10:05 | | | | | | AM PST | | | | +-------+ +--------+---+---+ +---+---+ | | | +---+---+ + +-------+ +--------+---+---+ | allopurinoL (ZYLOPRIM) tablet | Given | 08/08/19 | 300 mg | | | | 300 mg 300 mg, oral, DAILY, | | 20 8:01 | | | | | First dose on Sun08/06/19 at 0900, | | AM PST | | | | | Until Discontinued | | | | | | + +-------+ +--------+---+---+ +-------+ +--------+---+---+ | Given | 08/07/19 | 300 mg | | | | | 20 9:06 | | | | | | AM PST | | | | +-------+ +--------+---+---+ | Given | 08/06/19 | 300 mg | | | | | 20 10:05 | | | | | | AM PST | | | | +-------+ +--------+---+---+ +---+---+ | | | +---+---+ + +-------+ +--------+---+---+ | allopurinoL (ZYLOPRIM) tablet | Given | 08/06/19 | 600 mg | | | | 600 mg 600 mg, oral, ONCE, 1 | | 20 12:00 | | | | | dose, 08/05/19 at 2300 | | AM PST | | | | + +-------+ +--------+---+---+ + +---+ | | | + +---+ | alteplase (CATHFLO ACTIVASE) | | | injection 2 mg 2 mg, | | | Intracatheter, NEEDED, | | | Starting 08/05/19 at 2227, | | | Until 08/09/19 at 0019, central | | | catheter sluggishness | | + +---+ | | | + +---+ + +-------+ +-------+---+---+ | aluminum-magnesium | Given | 08/07/19 | 30 mL | | | | hydroxide-simethicone (MAALOX; | | 20 8:51 | | | | | MYLANTA) 200-200-20 mg/5 mL | | PM PST | | | | | suspension 30 mL 30 mL, oral, | | | | | | | EVERY 3 HOURS NEEDED, Starting | | | | | | | 08/05/19 at 2227, Until Sat | | | | | | | 08/09/19 at 0019, gastrointestinal | | | | | | | upset | | | | | | + +-------+ +-------+---+---+ +---+---+ | | | +---+---+ + +-------+ +--------+---+---+ | celecoxib (CELEBREX) capsule | Given | 08/08/19 | 100 mg | | | | 100 mg 100 mg, oral, TWICE DAILY | | 20 5:27 | | | | | NEEDED, Starting Floridalma 08/07/19 | | PM PST | | | | | at 1708, Until 08/09/19 at | | | | | | | 0019, Pain | | | | | | + +-------+ +--------+---+---+ +-------+ +--------+---+---+ | Given | 08/07/19 | 100 mg | | | | | 20 8:51 | | | | | | PM PST | | | | +-------+ +--------+---+---+ + +---+ | | | + +---+ | | | | zjhlqdlducTIREL-forzdeobs-FWUBYQ | | | (SPECIAL MOUTHWASH) suspension | | | (compound) 10-15 mL 10-15 mL, | | | oral, EVERY 1 HOUR NEEDED, | | | Starting 08/05/19 at 2227, | | | Until 08/09/19 at 0019, | | | oral/esophageal pain | | + +---+ | | | + +---+ | glycerin-mineral oil (LUBRIDERM | | | SENSITIVE LANOLIN FREE) lotion | | | topical, EVERY 2 HOURS NEEDED, | | | Starting 08/05/19 at 2227, | | | Until 08/09/19 at 0019, dry | | | skin | | + +---+ | | | + +---+ + +-------+ +-------+---+---+ | hydroCHLOROthiazide | Given | 08/08/19 | 25 mg | | | | (HYDRODIURIL) tablet 25 mg 25 | | 20 8:02 | | | | | mg, oral, DAILY, First dose on | | AM PST | | | | | Sun08/06/19 at 0900, Until | | | | | | | Discontinued | | | | | | + +-------+ +-------+---+---+ +-------+ +-------+---+---+ | Given | 08/07/19 | 25 mg | | | | | 20 9:07 | | | | | | AM PST | | | | +-------+ +-------+---+---+ | Given | 08/06/19 | 25 mg | | | | | 20 10:06 | | | | | | AM PST | | | | +-------+ +-------+---+---+ +---+---+ | | | +---+---+ + +-------+ +--------+---+---+ | levothyroxine tablet 25 mcg 25 | Given | 08/08/19 | 25 mcg | | | | mcg, oral, BEFORE BREAKFAST, | | 20 6:11 | | | | | First dose on Sun08/06/19 at 0630, | | AM PST | | | | | Until Discontinued | | | | | | + +-------+ +--------+---+---+ +-------+ +--------+---+---+ | Given | 08/07/19 | 25 mcg | | | | | 20 6:29 | | | | | | AM PST | | | | +-------+ +--------+---+---+ | Given | 08/06/19 | 25 mcg | | | | | 20 6:29 | | | | | | AM PST | | | | +-------+ +--------+---+---+ + +---+ | | | + +---+ | loperamide (IMODIUM) capsule 2 | | | mg 2 mg, oral, NEEDED, | | | Starting 08/05/19 at 2227, | | | Until 08/09/19 at 0019, after | | | each loose stool | | + +---+ | | | + +---+ | LORazepam (ATIVAN) injection | | | 0.5 mg 0.5 mg, intravenous, ONCE | | | NEEDED, 1 dose, Starting Fri | | | 08/08/19 at 1309, Until 08/09/19 | | | at 0019, anxiety | | + +---+ | | | + +---+ + +-------+ +--------+---+---+ | losartan (COZAAR) tablet 100 mg | Given | 08/08/19 | 100 mg | | | | 100 mg, oral, DAILY, First dose | | 20 8:02 | | | | | on Sun08/06/19 at 0900, Until | | AM PST | | | | | Discontinued | | | | | | + +-------+ +--------+---+---+ +-------+ +--------+---+---+ | Given | 08/07/19 | 100 mg | | | | | 20 9:07 | | | | | | AM PST | | | | +-------+ +--------+---+---+ | Given | 08/06/19 | 100 mg | | | | | 20 10:06 | | | | | | AM PST | | | | +-------+ +--------+---+---+ + +---+ | | | + +---+ | magnesium sulfate in water IV | | | (RTU) 4 g 4 g, intravenous, | | | NEEDED, Starting 08/05/19 at | | | 2225, Until 08/09/19 at 0019, | | | Mg level 1.3-1.6 mg/dL | | + +---+ | | | + +---+ | magnesium sulfate IV 8 g 8 g, | | | intravenous, NEEDED, Starting | | | 08/05/19 at 2225, Until Sat | | | 08/09/19 at 0019, Mg level less | | | than or equal to 1.2 mg/dL | | + +---+ | | | + +---+ | menthol (sugar free) (COUGH | | | DROP) lozenge 5 mg 5 mg (1 | | | lozenge), oral, EVERY 1 HOUR | | | NEEDED, Starting 08/05/19 at | | | 2227, Until 08/09/19 at 0019, | | | for mouth pain | | + +---+ | | | + +---+ | nystatin-zinc oxide-lidocaine | | | (NDX) ointment (compound) | | | topical, EVERY 1 HOUR NEEDED, | | | Starting 08/05/19 at 2227, | | | Until 08/09/19 at 0019, | | | perirectal area redness | | + +---+ | | | + +---+ + +-------+ +-------+---+---+ | omeprazole (PRILOSEC) capsule | Given | 08/08/19 | 40 mg | | | | 40 mg 40 mg, oral, DAILY, First | | 20 8:01 | | | | | dose on Sun08/06/19 at 0900, Until | | AM PST | | | | | Discontinued | | | | | | + +-------+ +-------+---+---+ +-------+ +-------+---+---+ | Given | 08/07/19 | 40 mg | | | | | 20 9:08 | | | | | | AM PST | | | | +-------+ +-------+---+---+ | Given | 08/06/19 | 40 mg | | | | | 20 10:05 | | | | | | AM PST | | | | +-------+ +-------+---+---+ + +---+ | | | + +---+ | oxyCODONE (immediate release) | | | (ROXICODONE) tablet 5 mg 5 mg, | | | oral, EVERY 6 HOURS NEEDED, | | | Starting [place] 08/07/19 at 1709, | | | Until 08/09/19 at 0019, severe | | | pain | | + +---+ | | | + +---+ | potassium chloride IV (central | | | line) 40 mEq 40 mEq, | | | intravenous, NEEDED, Starting | | | 08/05/19 at 2225, Until Sat | | | 08/09/19 at 0019, potassium level | | | of 3-3.4 mmol/L. Administer if | | | patient intolerant of oral | | | medications. | | + +---+ | | | + +---+ | potassium chloride IV (central | | | line) 60 mEq 60 mEq, | | | intravenous, NEEDED, Starting | | | 08/05/19 at 2225, Until Sat | | | 08/09/19 at 0019, potassium level | | | less than or equal to 2.9 mmol/L | | + +---+ | | | + +---+ | potassium chloride SR (K-DUR) | | | tablet 40 mEq 40 mEq, oral, | | | NEEDED, Starting 08/05/19 at | | | 2225, Until 08/09/19 at 0019, | | | potassium level 3-3.4 mmol/L | | + +---+ | | | + +---+ | potassium phosphate IV (CENTRAL | | | LINE) 30 mmol 30 mmol, | | | intravenous, NEEDED, Starting | | | 08/05/19 at 2225, Until Sat | | | 08/09/19 at 0019, Potassium less | | | than or equal to 3.4 mmol/L AND | | | Phosphate less than or equal to 2 | | | mg/dL | | + +---+ | | | + +---+ | potassium phosphate IV (CENTRAL | | | LINE) 40 mmol 40 mmol, | | | intravenous, NEEDED, Starting | | | 08/05/19 at 2225, Until Sat | | | 08/09/19 at 0019, Potassium less | | | than or equal to 2.9 mmol/L AND | | | Phosphate less than or equal to | | | 1.5 mg/dL. | | + +---+ | | | + +---+ | prochlorperazine (COMPAZINE) | | | tablet 5-10 mg 5-10 mg, oral, | | | EVERY 4 HOURS NEEDED, Starting | | | 08/05/19 at 2227, Until Sat | | | 08/09/19 at 0019, give as first | | | line agent for acute or delayed | | | nausea/vomiting | | + +---+ | | | + +---+ | saliva substitute (MOUTH KOTE) | | | spray 1 spray 1 spray, oral, | | | EVERY 1 HOUR NEEDED, Starting | | | 08/05/19 at 2227, Until Sat | | | 08/09/19 at 0019, dry mouth | | + +---+ | | | + +---+ | senna-docusate (SENOKOT S) | | | 8.6-50 mg 1-2 tablet 1-2 tablet, | | | oral, EVERY 12 HOURS NEEDED, | | | Starting 08/05/19 at 2227, | | | Until 08/09/19 at 0019, | | | constipation | | + +---+ | | | + +---+ + +-------+ +-------+---+---+ | sertraline (ZOLOFT) tablet 50 | Given | 08/08/19 | 50 mg | | | | mg 50 mg, oral, DAILY, First | | 20 8:02 | | | | | dose on Sun08/06/19 at 0900, Until | | AM PST | | | | | Discontinued | | | | | | + +-------+ +-------+---+---+ +-------+ +-------+---+---+ | Given | 08/07/19 | 50 mg | | | | | 20 9:06 | | | | | | AM PST | | | | +-------+ +-------+---+---+ | Given | 08/06/19 | 50 mg | | | | | 20 10:05 | | | | | | AM PST | | | | +-------+ +-------+---+---+ + +---+ | | | + +---+ | sodium phosphate IV 30 mmol 30 | | | mmol, intravenous, NEEDED, | | | Starting 08/05/19 at 2225, | | | Until 08/09/19 at 0019, | | | Administer for sodium level less | | | than 148 mmol/L AND phosphate | | | level 1.6-2 mg/dL. | | + +---+ | | | + +---+ | sodium phosphate IV 40 mmol 40 | | | mmol, intravenous, NEEDED, | | | Starting 08/05/19 at 2225, | | | Until 08/09/19 at 0019, | | | Administer for sodium level less | | | than 148 mmol/L AND phosphate | | | level less than or equal to 1.5 | | | mg/dL. | | + +---+ | | | + +---+ documented in this encounter
--- OUTSIDE RECORDS SUMMARY | ~2019-12-27 | XMS | Encounter Summary ---
Demographics + + + | Address | [address] | | | [place] [address] | + + + | Home Phone [...] Team Providers + +------+ + | Care Monkey Trainer Name | Role | Phone | + +------+ + | Oz Rodriguez MD | PCP | | + +------+ + Encounter Details +--------+ + + + + | Date | Type | Department | Care Team | Description | +--------+ + + + + | 08/26/ | Pharmacy | [facility] | | | | 2020 | Visit | [address] | | | | | | Place [address] | | | | | | [place] [address] | | | | | | [phone] | | | +--------+ + + + [...] | | | | | [place], | | | | | | [place] [address] | | | | | | [phone] | | | | | | | | +--------+ + + + + | 01/14/ | Appointment | Hematology & | Onc, [address] | | | 2019 | | Oncology | [place] | | | | | | [place] [address] | | +--------+ + + + + documented as of this encounter Visit Diagnoses Not on filedocumented in this encounter"
--- OUTSIDE RECORDS SUMMARY | ~2019-12-27 | XMS | Encounter Summary ---
Demographics + + + | Address | [address] | | | [place] [address] | + + + | Home Phone | | + + + | Preferred Language | Unknown | + + + | Marital Status | | + + + | Pentecostalism Affiliation | LUT | + + + | Race | White | + + + | Ethnic Group | Not or | + + + Author + + + | Author | [facility] | + + + | Organization | [facility] | + + + | Address [...] Team Providers + +------+ + | Care It Communications Manager Name | Role | Phone | + +------+ + | Oz Rodriguez MD | PCP | | + +------+ + Encounter Details +--------+ + + + + | Date | Type | Department | Care Team | Description | +--------+ + + + + | 09/21/ | Pharmacy | Pharmacy @ [facility] | | | | 2019 | Visit | [address] | | | | | | [place] Mailcode: | | | | | | [facility] | | | | | | and [address], | | | | | | [address] | | | | | | [place], [place] | | | | | | [address] | | | +--------+ + + + [...] | | | | | [place], | | | | | | [place] [address] | | | | | | [phone] | | | | | | | | +--------+ + + + + | 01/14/ | Appointment | Hematology & | Onc, [address] | | | 2020 | | Oncology | [place], | | | | | | [place] [address] | | +--------+ + + + + documented as of this encounter Visit Diagnoses Not on filedocumented in this encounter"
--- OUTSIDE RECORDS SUMMARY | ~2019-12-27 | XMS | Encounter Summary ---
Demographics + + + | Address | [address] | | | [place] [address] | + + + | Home Phone | | + + + | Preferred Language | Unknown | + + + | Marital Status | | + + + | Presybeterian Affiliation | LUT | + + + | Race | White | + + + | Ethnic Group | Not or | + + + Author + + + | Author | [facility] | + + + | Organization | [facility] | + + + | [...] Team Providers + +------+ + | Care Label Printer Name | Role | Phone | + [...] | [facility] [address] [place], | | | | | [facility] | [place] [address] | | | | | Health and He[facility], | [phone] | | | | | [address] | | | | | | [place], [place] | | | | | | [address] | | | | | | [phone] | | | +--------+ + + + [...] | | | | | [place], | | | | | | [place] [address] | | | | | | [phone] | | | | | | | | +--------+ + + + + | 01/14/ | Appointment | Hematology & | Onc, [address] | | | 2020 | | Oncology | [place], | | | | | | [place] [address] | | +--------+ + + + + documented as of this encounter Visit Diagnoses Not on filedocumented in this encounter"
--- OUTSIDE RECORDS SUMMARY | ~2019-12-27 | XMS | Encounter Summary ---
Demographics + + + | Address | [address] | | | [place] [address] | + + + | Home Phone | | + + + | Preferred Language | Unknown | + + + | Marital Status | | + + + | Oriental Orthodox Affiliation | LUT | + + [...] Team Providers + +------+ + | Care Inset Cutter Name | Role | Phone | + +------+ + | Oz Rodriguez MD | PCP | | + +------+ + Encounter Details +--------+ + + + + | Date | Type | Department | Care Team | Description | +--------+ + + + + | 11/25/ | Pharmacy | [facility] | | | | 2020 | Visit | [address] | | | | | | [address] | | | | | | [place] [address] | | | | | | [phone] | | | +--------+ + + + [...] | | | | | | [place] [address] | | | | | | [phone] | | | | | | | | +--------+ + + + + | 01/14/ | Appointment | Hematology & | Onc, [address] | | | 2019 | | Oncology | [place] | | | | | | [place] [address] | | +--------+ + + + + documented as of this encounter Visit Diagnoses Not on filedocumented in this encounter"
--- OUTSIDE RECORDS SUMMARY | ~2019-12-27 | XMS | Encounter Summary ---
Demographics + + + | Address | [address] | | | [place] [address] | + + + | Home Phone | | + + + | Preferred Language | Unknown | + + + | Marital Status | | + + + | Restorationist Affiliation | LUT | + + + | Race | White | + + + | Ethnic Group | Not or | + + + Author + + + | Author | [facility] | + + + | Organization | [facility] | + + + | Address [...] Team Providers + +------+ + | Care Jewelry Coater Name | Role | Phone | + +------+ + | Margarita Patterson | PCP | | + +------+ + Reason for Visit + + + | Reason | Comments | + + + | Lab Draw | PICC | + + + | Dressing change | | + + + Encounter Details +--------+ + + + + | Date | Type | Department | Care Team | Description | +--------+ + + + + | 09/08/ | Hospital | [facility] | | | | 2020 | Encounter | Clinics at S | | | | | | [facility] [address] | | | | | | [facility] | | | | | | [facility], | | | | | | [address] | | | | | | [place], [place] | | | | | | [address] | | | | | | [phone] | | | +--------+ + + + [...] + + + | Blood Pressure | 145/77 | 09/09/2019 10:20 AM | | | | | PDT | | + + + + + | Pulse | 76 | 09/09/2019 10:20 AM | | | | | PDT | | + + + + + | Temperature | 36.8 C (98.2 F) | 09/09/2019 10:20 AM | | | | | PDT | | + + + + + | Respiratory Rate | 16 | 09/09/2019 10:20 AM | | | | | PDT | | + + + + + | Oxygen Saturation | 100% | 09/09/2019 10:20 AM | | | | | PDT | | + + + + + | Inhaled Oxygen | - | - | | | Concentration | | | | + + + + + | Weight | 100.2 kg (221 lb) | 09/09/2019 10:20 AM | | | | | PDT | | + + + + + | Height | - | - | | + + + + + | Body Mass Index | 35.77 | 08/05/2019 10:34 PM | | | [...] tablet by | 60 | 3 | // | | | oral | mouth two [...] documented as of this encounter Progress Notes Charlene Jackson RN - 09/09/2019 9:30 AM PDT INFUSION NURSING NOTE Allergies: Fidelia has No Known Allergies. 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 Patient arrives to clinic walking independently. Patient states she is feeling tired to day. Recently started Jakofi. Nursing Assessment: Fever/Chills/Infection: No SOB / Cough: No Dizziness/Lightheaded/Fatigue: No Signs/Symptoms Bleeding: No Neuropathy: no Mucositis: No Nausea/Vomiting: No Appetite: "comes and goes". Diarrhea/Constipation: No PO Fluid Intake: 2 liters. Rash/Skin sores/Edema: Yes, 2 open area outside of PICC dressing, patient unclear on how th ey got there. Urinary Issues: No Pain: Yes, RINCON Vascular Access: Power PICC accessed per protocol. Good blood return noted. Appropriate waste discarded. Labs drawn and sent. Power PICC pulse flushed with 20 mL NS. Dressing change: PICC dressing change per Gissel FITZGERALD. Orders: Infusion Plan: no replacements indicated. Reviewed neutropenic precautions with patient. Patient was reminded to call clinic with temp > 100.4, chills, s/s of bleeding or uncontrol led N/V/D/C. Patient d/c d ambulatory with self. Charlene Jackson RN documented in this encounter Plan of Treatment +--------+ [...] | | | | | | [place] [address] | | | | | | [phone] | | | | | | | | +--------+ + + + + | 01/14/ | Appointment | Hematology & | Onc, [address] | | | 2020 | | Oncology | [place] | | | | | | [place] [address] | | +--------+ + + + + + + +--------+ + + | Name | Type | Priori | Associated Diagnoses | Order Schedule | | | | ty | | | + + +--------+ + + | MANUAL DIFFERENTIAL | Lab - | Routin | Pancytopenia (HCC) | 09/09/2019 until | | | [facility] | e | | discontinued, 1 | | | Performable | | | completed | | | s | | | | + + +--------+ + + | RBC MORPHOLOGY | Lab - | Routin | Pancytopenia (HCC) | 09/09/2019 until | | | [facility] | [...] | [facility] - MAGNESIUM, | Routin | 09/09/2019 | Pancytopenia (HCC) | Results for this | | PLASMA | e | 10:18 AM | | procedure are in the | | | | PDT | | results section. | + +--------+ + + + | [facility] - PHOSPHORUS, | Routin | 09/09/2019 | Pancytopenia (HCC) | Results for this | | PLASMA | e | 10:18 AM | | procedure are in the | | | | PDT | | results section. | + +--------+ + + + | RBC MORPHOLOGY | Routin | 09/09/2019 | Pancytopenia (HCC) | Results for this | | | e | 10:18 AM | | procedure are in the | | | | PDT | | results section. | + +--------+ + + + | CBC AND AUTO DIFF | Routin | 09/09/2019 | [facility] ([facility] | Results for this | | | e | 10:18 AM | | procedure are in the | | | | PDT | | results section. | + +--------+ + + + | MANUAL DIFFERENTIAL | Routin | 09/09/2019 | Pancytopenia (HCC) | Results for this | | | e | 10:18 AM | | procedure are in the | | | | PDT | | results section. | + +--------+ + + + | [facility] - COMPLETE | Routin | 09/09/2019 | Pancytopenia (HCC) | Results for this | | METABOLIC SET | e | 10:18 AM | | procedure are in the | | | | PDT | | results section. | + +--------+ + + + | [facility] CBC W | Routin | 09/09/2019 | Pancytopenia (HCC) | Results for this | | DIFFERENTIAL | e | 10:18 AM | | procedure are in the | | | | PDT | | results section. | + +--------+ + + + | BLOOD BANK HOLD TUBE | Routin | 09/09/2019 | Pancytopenia (HCC) | Results for this | | - DON | e | 10:18 AM | | procedure are in the | | | | PDT | | results section. | | T PROCESS | | | | | + +--------+ + + + documented in this encounter Results RBC MORPHOLOGY (09/09/2019 10:18 AM PDT) + + + + + [...] + + + | ACANTHOCYTE | 1+ (2-4cells/HPF) | | [facility] | | | S [...] [facility] | [address] | [place] [address] | | | SERVICES, [facility] | | | | [facility] + [facility] | | | | + + + + + MANUAL DIFFERENTIAL (09/09/2019 10:18 AM PDT) + + + + + + | Component | Value | Ref Range | Performed | Pathologist | | | | | At | Signature | + + + + + + | NEUTROPHIL | 1.8 (L) | 50.0 - 70.0 % | [facility] | | | % | | | LABORATORY | | | | | | SERVICES, | | | | | | [facility] + | | | | | | [facility]AL[facility] | | + + + + + + | LYMPHOCYTE | 86.2 (H) | 18.0 - 42.0 % | [facility] | | | % | | | LABORATORY | | | | | | SERVICES, | | | | | | [facility] | [facility] + | | | | | | [facility]ALING | | + + + + + + | MONOCYTE % | 4.6 | 3.5 - 9.0 % | [facility] [...] + + + + | ATYPICAL | 4.6 (H)Comment: Atypical | 0.0 % | [facility] [...] + + + + | NEUTROPHIL | 0.05 (L) | 1.80 - 7.70 | [facility] | | | # | | K/cu mm | LABORATORY | | | | | | SERVICES, | | | | | | [facility] | | | [facility] + | | | | | | HEALING | | + + + + + + | LYMPHOCYTE | 2.61 | 1.00 - 4.80 | [facility] | | | # | | K/cu mm | LABORATORY | | | | | | SERVICES, | | | | | | [facility] | | [facility] + | | | | | | HEALING | | + + + + + + | MONOCYTE # | 0.14 | 0.10 - 0.90 | [facility] | | | | | K/cu mm | LABORATORY | | | | | | SERVICES, | | | | | | [facility] | | | [facility] + | | | | | | HEALING | | + + + + + + | EOSINOPHIL | 0.05 | 0.00 - 0.50 | [facility] | [...] + + + + | ATYPICAL | 0.14 | K/cu mm | [facility] | | [...] are included in the neutrophil count. | [facility] | | | HEALTH + | | | HEALING | + + + + + + + + | Performing | Address | City/State/Zipcode | Phone Number | | Organization | | | | + + + + + | [facility] | [address] | [place] [address] | | | [facility] | | | | | HEALTH + HEALING | | | | + + + + + CBC AND AUTO DIFF (09/09/2019 10:18 AM PDT) + + + + + + | Component | Value | Ref Range | Performed | Pathologist | | | | | At | Signature | + + + + + + | WHITE CELL | 3.03 (L) | 3.50 - 10.80 | [facility] | | | COUNT | | K/cu mm | LABORATORY | | | | | | SERVICES, | | | | | | [facility] | | | [facility] + | | | | | | HEALING | | + + + + + + | RED CELL | 3.43 (L) | 4.00 - 5.20 | [facility] | | | COUNT | | M/cu mm | LABORATORY | | | | | | SERVICES, | | | | | | [facility] | | | | [facility] + | | | | | | HEALING | | + + + + + + | HEMOGLOBIN | 9.7 (L) | 12.0 - 16.0 | [facility] | | | | | g/dL | LABORATORY | | | | | | SERVICES, | | | | | | [facility] | | | [facility] + | | | | | | HEALING | | + + + + + + | HEMATOCRIT | 28.2 (L) | 36.0 - 46.0 % | [facility] | | | | | | LABORATORY | | | | | | SERVICES, | | | | | | [facility] | | [facility] + | | | | | | HEALING | | + + + + + + | MCV | 82.2 | 80.0 - 100.0 fL | [facility] [...] + + + | RDW SD | 37.9 | 35.1 - 46.3 fL | [facility] | | | | | | LABORATORY | | | | | | SERVICES, | | | | | | [facility] | | | | | | [facility] + | | | | | | HEALING | | + + + + + + | PLATELET | 18 (L) | 150 - 400 K/cu | [...] + + + + | NEUTROPHIL | 0.09 (L)Comment: | 1.80 - 7.70 | [facility] [...] | + + + + + | [facility] | [address] | [place] [address] | | | SERVICES, [facility] | | | | | [facility] + HEALING | | | | + + + + + [facility] - PHOSPHORUS, PLASMA (09/09/2019 10:18 AM PDT) + +-------+ + + + [...] | | | | | | [facility] | | | | | | [...] + + + | [facility] | [address] | [place] [address] | | | [facility] | | | | | HEALTH + HEALING | | | | + + + + + [facility] - MAGNESIUM, PLASMA (09/09/2019 10:18 AM PDT) + +-------+ + + + | Component | Value | Ref Range | Performed | Pathologist | | | | | At | Signature | + +-------+ + + + | MAGNESIUM,P | 1.9 | 1.6 - 2.6 mg/dL | [facility] | | | LASMA | | | LABORATORY | | | | | | [facility], | | | | | | [facility] | | | | | | [...] | + + + + + | [facility] | [address] | [place] [address] | | | SERVICES, [facility] | | | | | HE[facility] + HEALING | | | | + + + + + BLOOD BANK HOLD TUBE - DON T PROCESS (09/09/2019 10:18 AM PDT) + + + + + [...] | + + + + + | [facility] | [address] | [place] [address] | | | SERVICES, | [address] | | | | TRANSFUSION MEDICINE | | | | + + + + + [facility] - COMPLETE METABOLIC SET (09/09/2019 10:18 AM PDT) + + + + + + | Component | Value | Ref Range | Performed | Pathologist | | | | | At | Signature | + + + + + + | GLUCOSE, | 140 (H) | 70 - 99 mg/dL | [facility] | | | PLASMA | | | LABORATORY | | | (LAB) | | | SERVICES, | | | | | | [facility] | [facility] | | [facility] + | | | | | | HEALING | | + + + + + + | BUN, PLASMA | 22 (H) | 6 - 20 mg/dL | [facility] | | | (LAB) | | | LABORATORY | | | | | | SERVICES, | | | | | | [facility] | | | | [facility] + | | | | | | HEALING | | + + + + + + | CREATININE | 0.94 | 0.60 - 1.10 | [facility] | [...] | | | LABORATORY | | | SURINAMESE | | | SERVICES, | | | | | | [facility] | [facility] | [facility] + | | | | | | HEALING | | + + + + + + | EGFR NON | 59 (L) | >60 mL/min | [facility] | | | -[facility] | | | LABORATORY | | | RICAN | | | SERVICES, | | | | | | [facility] | | | | [facility] + | | | | | | HEALING | | + + + + + + | SODIUM, | 137 [...] + + + + | POTASSIUM, | 3.8 [...] + + + + | CHLORIDE, | 100 [...] + + + + | CALCIUM, | 10.2 | 8.6 - 10.2 | [facility] | | | PLASMA | | mg/dL | LABORATORY | | | (LAB) | | | SERVICES, | | | | | | [facility] | | | | | [facility] + | | | | | | HEALING | | + + + + + + | CALCIUM(ALB | 10.8 (H) | 8.6 - 10.2 | [facility] [...] + + + + | TOTAL | 8.0 | 6.4 - 8.2 g/dL | [facility] | | | PROTEIN, | | | LABORATORY | | | PLASMA | | | SERVICES, | | | (LAB) | | | [facility] | | | | | | [facility] + | | | | | | HEALING | | + + + + + + | ALBUMIN, | 3.3 [...] + + + | ALK PHOS | 145 (H) | 53 - 141 U/L | [facility] | | | | | | LABORATORY | | | | | | SERVICES, | | | | | | [facility] | | | | | | [facility] + | | | | | | HEALING | | + + + + + + | AST(SGOT) | 15 [...] + + + + | ANION | 10 [...] + + + + | BUN/CREATIN | 23 | 8 - 25 | [facility] | | | INE RATIO | | | LABORATORY | | | | | | SERVICES, | | | | | | [facility] | | | | | | [facility] + | | | | | | HEALING | | + + + + + + | GLOBULIN | 4.7 (H) | 2.3 - 3.5 gm/dL | [...] [facility] | [address] | [place] [address] | | | SERVICES, [facility] | | | | | [facility] + HEALING | | | | + + + + + documented in this encounter Visit Diagnoses + + | Diagnosis | + + | Pancytopenia (HCC) - Primary Other pancytopenia | + + documented in this encounter
--- OUTSIDE RECORDS SUMMARY | ~2019-12-27 | XMS | Encounter Summary ---
Demographics + + + | Address | [address] | | | [place] [address] | + + + | Home Phone | | + + + | Preferred Language | Unknown | + + + | Marital Status | | + + + | Congregation Affiliation | LUT | + + + | Race | White | + + + | Ethnic Group | Not or | + + + Author + + + | Author | [facility] | + + + | Organization | [facility] | + + + | [...] Team Providers + +------+ + | Care Svp Digital Sales Name | Role | Phone | + +------+ + | Margarita Patterson | PCP | | + +------+ + Encounter Details +--------+---------+ + + + | Date | Type | Department | Care Team | Description | +--------+---------+ + + + | 12/08/ | Office | [facility] | Daysi Mccauley MD | Myelofibrosis (HCC) | | 2020 | Visit | Clinics at S | [address] | (Primary Dx) | | | | [facility] [address] [place], | | | | | [facility] | [place] [address] | | | | | Health and Healing, | [phone] | | | | | [address] | | | | | | [place], [place] | | | | | | [address] | | | | | | [phone] | | | +--------+---------+ + + + [...] of this encounter Patient Instructions Patient Instructions Jessica Krishna RN - 12/09/2019 9:30 AM PDTIt was a pleasure to see yo u in clinic today. These are the things that were discussed during your appointment today: You will be getting blood today while in infusion. The bruise on your hip is likely due to your lower platelets. We are monitoring them bu t you do not need a transfusion today. After your blood transfusion you will be going to get your echo. You will know by this (12/10) which arm of the study you will be placed on. You will come back next Sunday (12/16) and start whichever arm you have been placed on . After Sunday, no matter what arm of the study you are placed on, you will follow up e very 8 weeks. Jessica Krishna is Dr. Mccauley's Nurse Coordinator. If you have any questions, feel free to con tact her, her contact information is below. The best way to contact her is through theScore. Please note, Kathrine is off on Sunday, but there are other members of the [facility] who will be available to assist you. Please call the clinic at [phone] for assistanc eKrystle Krishna MEDICAL AND SCIENTIFIC ILLUSTRATOR Hematology/Oncology Nurse Coordinator [facility] | [facility] [place] [address] Clinic: [phone] For further questions or concerns: [employer]: We encourage patients to use Redu.ust as the primary mode of communication. Feel fr ee to message us on theScore with any questions that may arise. Please note that [employer] me ssages are not monitored on evenings, weekends, or holidays. If you have urgent symptoms or questions during those times, please call [phone] and ask to have the BMT Person On Ca ll paged. Sunday through Sunday from 8:00 am to 5:00 pm, if you have urgent questions or sy mptoms, please call our eyeglass lens generator for immediate assistance at [phone] or [phone]. [phone] Appointments/Questions/Follow-up: If you have any questions about appointments or need to c all to make a follow up appointment, please call the director of front office at [phone]. Symptoms/Medical Questions: If you develop any symptoms or have any urgent medical question s, please call the Triage Nurse at [phone] or [phone] (Sunday - Sunday 8:30-4:30). After hours, please call [phone] and ask to have the BMT Person Agronomy Internship pag ed. Feedback: We value and appreciate your opinion and would like to learn from your experience at [facility]. Please complete the surveys that [facility] sends. Thank you! 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 History of Present Illness: Fidelia Pickett is presenting today for after new likely diagnosis of MF. The patient has a past medical history that includes HTN and hypothyroidism. The patient's hematological hi story dates back to 08/02/2019 where she was seen in the ED in [place], [place] for dyspnea. Fou nd to be pancytopenic including Hgb/HCT of 6.3/18.1 and platelet count at 42. She was transf used two units and discharged home with plan for follow-up and BMBx at [facility]. Subsequently admitted from 08/04-08/08/2019 at [facility] d/t pancytopenia. BMBx performed on 0. Marrow [...] of BMBx with Dr. Sherri chamberlain at [facility]. She had been doing well for [...] and need for supportive transfusions. Treatment history: 08/25-11/26/19: Jakafi 5mg PO BID. She has some memory loss at baseline which family felt was slightly improved since beginning treatment. Family also noticed improvement in her ener gy levels and chronic joint pains. D/c'ed on Jakafi in anticipation of enrolling in clinical trial. 12/04/19: Patient consented to CTI PAC-203 "A Phase 2/3 Study of Pacritinib in Patients wi th Primary Myelofibrosis, Post Polycythemia Vera Myelofibrosis, or Post-Essential Thrombocyt hemia Myelofibrosis" eIRB# [id number] Today: Patient presents to infusion today independently. She has continued to feel well sin ce last week's visit, still has not needed transfusion. She has had some mild left-sided abd ominal/splenic discomfort the last few days. Also with a bruise to her right hip. She still has significant memory loss, however, her arthralgias continue to be well-controlled for the last few months. Review of Systems Constitutional: Positive for malaise/fatigue. HENT: Negative. Eyes: Negative. Respiratory: Negative. Cardiovascular: Negative. Gastrointestinal: Positive for abdominal pain. Genitourinary: Negative. Musculoskeletal: Negative. Skin: Negative. Neurological: Negative. Endo/Heme/Allergies: Bruises/bleeds easily. Psychiatric/Behavioral: Positive for memory loss. Current Medication [...] ur ic acid due to cancer chemotherapy CEFPODOXIME 200 MG TABLET Take 1 tablet by mouth every twelve hours. CELECOXIB 100 MG CAPSULE Take 1 capsule by mouth twice daily as needed. Administer with leslie d. Indications: Pain DULOXETINE 30 MG CAPSULE,DELAYED RELEASE Take 60 mg by mouth once daily. FLUCONAZOLE 200 MG TABLET Take 1 tablet by mouth two times daily. Indications: fungal infec tion prevention HYDROCHLOROTHIAZIDE 25 MG TABLET Take 25 mg by mouth once daily. LEVOTHYROXINE 25 MCG TABLET Take 25 mcg by mouth before breakfast. LOSARTAN 100 MG TABLET Take 100 mg by mouth once daily. RUXOLITINIB 5 MG TABLET Take 1 tablet by mouth two times daily. Past Medical History: Diagnosis Date Diabetes mellitus (HCC) 08/07/2019 HbA1C 7.2 HTN (hypertension) Hypothyroid Past Surgical History Procedure Laterality Date Cholecystectomy Family history: No family history of blood cancers. PE: Vitals 12/09/2019 12/09/2019 Systolic 98 112 Diastolic 47 56 Pulse 73 69 Temperature 99.4 100.2 Respirations 18 16 Weight 97.07 kg (214 lb) - ECO Physical Exam Constitutional: She is oriented to person, place, and time and well-developed, well-nourish ed, and in no distress. HENT: Head: Normocephalic and atraumatic. Eyes: Pupils are equal, round, and reactive to light. Conjunctivae and EOM are normal. Cardiovascular: Normal rate, regular rhythm and normal heart sounds. Pulmonary/Chest: Effort normal and breath sounds normal. No respiratory distress. She has n o wheezes. Abdominal: Soft. She exhibits no distension. There is no abdominal tenderness. Spleen measures 5 cm below the intercostal margin. Musculoskeletal: Normal range of motion. General: No edema. Neurological: She is alert and oriented to person, place, and time. No cranial nerve defici t. Skin: Skin is warm and dry. No rash noted. Laboratory Onc/Maria Ines CBC Assess Latest Ref Rng & Units 11/10/2019 12/04/2019 12/09/2019 CBC - White Cell Count 3.50 - 10.80 K/cu mm 2.67(L) 2.28(L) 2.66(L) Red Cell Count 4.00 - 5.20 M/cu mm 3.08(L) 2.53(L) 2.20(L) Hemoglobin 12.0 - 16.0 g/dL 9.0(L) 7.4(L) 6.5(LL) Hematocrit 36.0 - 46.0 % 26.7(L) 22.1(L) 19.2(LL) MCV 80.0 - 100.0 fL 86.7 87.4 87.3 MCHC 32.0 - 36.0 g/dL 33.7 33.5 33.9 RDW SD 35.1 - 46.3 fL 45.0 44.6 43.8 Platelet Count 150 - 400 K/cu mm 14(L) 20(L) 21(L) NRBC % 0.0 - 0.3 % 3.7(H) 1.8(H) 2.3(H) NRBC # 0.00 - 0.02 K/cu mm 0.10(H) 0.04(H) 0.06(H) Neutrophil % 50.0 - 70.0 % 19.1(L) 38.6(L) 46.8(L) Lymphocyte % 18.0 - 42.0 % 72.7(H) 43.9(H) 35.8 Monocyte % 3.5 - 9.0 % 5.5 7.0 5.5 EOS # 0.00 - 0.50 K/cu mm 0.02 0.02 0.00 BASO # 0.00 - 0.10 K/cu mm 0.00 0.02 0.05 Immature Granulocyte # 0.00 - 0.10 K/cu mm 0.02 0.10 0.00 NEUTROPHILCO 0.51 (L) 11/10/2019 NEUTROPHILCO 0.88 (L) 12/04/2019 NEUTROPHILCO 1.24 (L) 12/09/2019 Onc/Maria Ines CMP Assess Latest Ref Rng & Units 11/10/2019 12/04/2019 12/09/2019 CMP - Sodium, plasma 136 - 145 mmol/L 136 139 135(L) Potassium, plasma 3.4 - 5.0 mmol/L 4.0 3.3(L) 3.4 Chloride, plasma 97 - 108 mmol/L 100 106 99 Total C02, plasma 21 - 32 mmol/L 27 28 26 Anion Gap 4 - 11 mmol/L 9 5 10 Anion Gap (Alb corrected) 4 - 11 mmol/L 9 6 12(H) BUN, plasma 6 - 20 mg/dL 23(H) 14 15 Creatnine, plasma 0.60 - 1.10 mg/dL 0.86 0.66 0.72 Glucose, plasma 70 - 99 mg/dL 102(H) 110(H) 228(H) Calcium, plasma 8.6 - 10.2 mg/dL 8.8 8.2(L) 8.2(L) Calcium (Alb corrected) 8.6 - 10.2 mg/dL 9.0 8.7 9.0 Magnesium, plasma 1.6 - 2.6 mg/dL - 2.1 1.8 Phosphorus, plasma 2.4 - 4.7 mg/dL - 3.8 3.7 AST (SGOT) <=41 U/L 66(H) 17 13 ALT (SGPT) <=60 U/L 98(H) 51 26 ALK Phos 53 - 141 U/L 450(H) 351(H) 259(H) LD Total, plasma <=250 U/L - 292(H) - Bilirubin Total 0.3 - 1.2 mg/dL 0.6 0.6 0.6 Total Protein, plasma 6.4 - 8.2 g/dL 7.4 6.7 6.9 Albumin, plasma 3.5 - 4.7 g/dL 3.7 3.4(L) 3.0(L) CK 38 - 234 U/L - - - BMBX 08/08/2019 13:45 Status: Final result Visible [...] found in m yeloid malignancies such as [id number] are recommended. Imaging MRI Abdomen W/O Contrast - 12/07/2019: IMPRESSION: T2 dark signal within the liver and spleen, compatible with iron deposition. T1 and T2 dark marrow signal can be seen in the setting of myelofibrosis. Spleen measures 13.2 x 8.5 x 11 cm, with an approximate volume of 750 cc. Diffuse and irregular pancreatic ductal dilatation with apparent filling defects in the london creatic head where the duct is poorly seen. Findings may reflect chronic pancreatitis or joo n duct IPMN, versus obstructing lesion in the pancreatic head. Multi phase CT pancreas is re commended for further evaluation. Labs, imaging, and pathology discussed with pt and family. Assessment and recommendations 1. Intermediate-2 risk MF: On 08/26/2019, she was started on Ruxulotinib at a low dose of 5 mg PO BID to see how she responds. Per her -Fidelia felt a lot better, her joint pains & energy levels were improving. Per pt her thinking/memory is still poor though from her fa lorena's perspective she is much improved. On 11/26/2019, patient discontinued Jakafi and antim icrobials in anticipation of enrolling in CTI PAC-203 "A Phase 2/3 Study of Pacritinib in Pa tients with Primary Myelofibrosis, Post Polycythemia Vera Myelofibrosis, or Post-Essential T hrombocythemia Myelofibrosis" eIRB# [id number]. -On 12/04/2019, Ms. Fidelia Pickett consented to discussed CTI PAC-203 "A Phase 2/3 Study of Pa critinib in Patients with Primary Myelofibrosis, Post Polycythemia Vera Myelofibrosis, or Po st-Essential Thrombocythemia Myelofibrosis" eIRB# [id number] -Today she feels well , has some abd discomfort in her LUQ during spleen palpation-feels mo re tired today. 2. Pancytopenia sec disease : Had fevers during her PRBC transfusion due to her symptomatic anemia that subsided with tylenol-we katerina blood cultures and will F/U closely.Pt is not maria ines tropenic but is on antibiotic prophylaxis as allowed by the study.Pt has stopped Levaquin an d azole anti-fungal as required by study protocol. Pt has been afebrile at home for the last 24 hrs after going home and blood cultures are negative so far. Patient sandrita be randomized to either std of care arm which is Ruxulotinib 5 mg BID or study drug. Her tentative C1D1 is SunDecember 16. Based on the protocol she will see us every 8 wee ks regardless of the arm she is assigned to. RTC per study protocol. I am Mor Coates functioning as a scribe for Daysi Mccauley MD at 1:11 PM on 12/04/2019 I have reviewed and verified the above scribed note of my visit with this patient as record ed by Mor Coates. Daysi Mccauley, Technology Risk Intern, Section for Hematologic Malignancies. [facility] documented in this enco unter Plan of [...] | | | | | | [place] [address] | | | | | | [phone] | | | | | | | | +--------+ + + + + | 01/14/ | Appointment | Hematology & | Onc, Gen [address] | | | 2019 | | Oncology | [place] | | | | | | [place] [address] | | +--------+ + + + + documented as of this encounter Visit Diagnoses + + | Diagnosis | + + | Myelofibrosis (HCC) - Primary Myelofibrosis | + + documented in this encounter
--- OUTSIDE RECORDS SUMMARY | ~2019-12-27 | XMS | Encounter Summary ---
Demographics + + + | Address | [address] | | | [place] [address] | + + + | Home Phone | | + + + | Preferred Language | Unknown | + + + | Marital Status | | + + + | Latter Day Affiliation | LUT | + + + [...] Team Providers + +------+ + | Care Philosophy Lecturer Name | Role | Phone | + +------+ + | Oz Rodriguez MD | PCP | | + +------+ + Reason for Visit + + + | Reason | Comments | + + + | Packed blood cell | 2 units | | transfusion | | + + + Encounter Details +--------+ + + + + | Date | Type | Department | Care Team | Description | +--------+ + + + + | 12/16/ | Hospital | [facility] | | | | 2020 | Encounter | Clinics at S | | | | | | [facility] [address] | | | | | | [facility] | | | | | | Health and Healing, | | | | | | [address] | | | | | | [place], [place] | | | | | | [address] | | | | | | [phone] | | | +--------+ + + + [...] | | | 20 | | | release(/MISHEL) | | | | | | + [...] + documented as of this encounter Progress Ita Garg RN - 12/17/2019 9:20 AM PDTFormatting of this note might be different fro m the original. INFUSION NURSING NOTE Patient with an oncologic history of Myelofibrosis presents to infusion clinic walking inde pendently today for supportive care. Nursing Assessment: Fever/Chills/Infection: No SOB / Cough: Yes - SOB with exertion Dizziness/Lightheaded/Fatigue: Yes - acknowledges baseline fatigue Signs/Symptoms Bleeding: No Neuropathy: No Mucositis: No Nausea/Vomiting: No Appetite: Good. Diarrhea/Constipation: No PO Fluid Intake: Adequate. Rash/Skin sores/Edema: No Urinary Issues: No Pain: No Vascular Access: PICC accessed per protocol. Good blood return noted. Labs drawn by Starter RN. PICC pulse flushed with 20 mL NS. Infusion Plan: Lab Results Component Value Date HCT 20.9 12/17/2019 HB 7.2 12/17/2019 Orders to transfuse PRBC product for a [...] units of PRBCs per Provider s orders. T ransfusion was tolerated well without complication. Frequent vital signs were monitored thr oughout the transfusion and reviewed by me. For transfusion details, see ONC Lines & Transf usions doc flowsheet. Patient was reminded to call clinic with temp > 100.4, chills, s/s of bleeding or uncontrol led N/V/D/C. Patient discharged walking independently in stable condition. Ita Salomon RN documented in this en counter Plan of Treatment +--------+ + + + [...] 2019 | Visit | Malignancy | [address] | | | | | | [place], | | | | | | [place] [address] | | | | | | [phone] | | | | | | | | +--------+ + + + + | 01/14/ | Appointment | Hematology & | Onc, Gen [address] | | | 2020 | | Oncology | [place] | | | | | | [place] [address] | | +--------+ + + + + [...] encounter Results PRODUCT - RED CELLS LEUKOREDUCED (12/17/2019 11:42 AM PDT) + + + + + [...] + + + + | PRODUCT | [id number] | | [facility] | | | UNIT [...] + + + + | EXPIRATION | [id number] | | [facility] | | | DATE [...] + + + + | BLOOD | [id number] | | [facility] | | | PRODUCT [...] [facility] | [address] | [place] [address] | | | SERVICES, | [address] | | | | TRANSFUSION MEDICINE | | | | + + + + + PRODUCT - RED CELLS LEUKOREDUCED (12/17/2019 10:45 AM PDT) + + + + + [...] + + + + | PRODUCT | [id number] | | [facility] | | | UNIT [...] + + + + | EXPIRATION | [id number] | | [facility] | | | DATE [...] + + + + | BLOOD | [id number] | | [facility] | | | PRODUCT [...] [facility] | [address] | [place] [address] | | | SERVICES, | [address] | | | | TRANSFUSION MEDICINE | | | | + + + + + ANTIBODY SCREEN (12/17/2019 7:56 AM PDT) + + [...] [facility] | [address] | [place] [address] | | | SERVICES, | [address] | | | | TRANSFUSION MEDICINE | | | | + + + + + ABO & RH TYPE (12/17/2019 7:56 AM PDT) + + + [...] [facility] | [address] | [place] [address] | | | SERVICES, | [address] | | | | TRANSFUSION MEDICINE | | | | + + + + + documented in this encounter Visit Diagnoses + + | Diagnosis | + + | Pancytopenia (HCC) - Primary Other pancytopenia | + + documented in this encounter"
--- OUTSIDE RECORDS SUMMARY | ~2019-12-27 | XMS | Encounter Summary ---
Demographics + + + | Address | [address] | | | [place] [address] | + + + | Home Phone [...] Team Providers + +------+ + | Care Mat Making Machine Tender Name | Role | Phone | [...] Request | | Radiology | Diagnoses | Parisa, | Nadya | | | | | MF | Daysi Ramires MD | Health & | | | | | (myelofibros | [address] | [employer] | | | | | is) (HCC) | [facility] | [address] [facility] | | | | | Procedures | Rd | [facility] | | | | | MRI ABDOMEN | [place], [place] | ROAD | | | | | WO CONTRAST | [address] | [place], [place] | | | | | | Phone: | [address] | | | | | | [phone] | Phone: | | | | | | Fax: | [phone] | | | | | | [phone] | | + +--------+ + + + + Reason for Visit Diagnostic Testing (Routine) + +--------+ + + + + | Status | Reason | Specialty | Diagnoses / | Referred By | Referred To | | | | | Procedures | Contact | Contact | + +--------+ + + + + | New Request | | Radiology | Diagnoses | [place], | [place] | | | | | MF | Daysi Ramires MD | Health & | | | | | (myelofibros | [address] | [employer] | | | | | is) (HCC) | [facility] | [address] | | | | | Procedures | Rd | [address] | | | | | MRI ABDOMEN | [place], [place] | ROAD | | | | | WO CONTRAST | [address] | [place], [place] | | | | | | Phone: | [address] | | | | | | [phone] | Phone: | | | | | | Fax: | [phone] | | | | | | [phone] | | + +--------+ + + + + Encounter Details +--------+ + + + + | Date | Type | Department | Care Team | Description | +--------+ + + + + | 12/06/ | Hospital | Diagnostic Imaging | Daysi Mccauley MD | | | 2020 | Encounter | Services at [facility] | [address] | | | | | [address] | [address] [place], | | | | | [address] | [place] [address] | | | | | [facility] | [phone] | | | | | [facility] [place] | | | | | | [address] | | | | | | [phone] | | | +--------+ + + + [...] | | | 20 | | | release(/EC) | | | | | | + + + +---------+ + + | fluconazole 200 mg | Take 1 tablet by | 60 | 3 | 03//20 | | | oral | mouth two [...] | | | | | | [place] [address] | | | | | | [phone] | | | | | | | | +--------+ + + + + | 01/14/ | Appointment | Hematology & | Onc, Gen [address] | | | 2019 | | Oncology | [place], | | | | | | [place] [address] | | +--------+ + + + + [...] + + documented in this encounter Results MRI ABDOMEN WO CONTRAST (12/07/2019 12:11 PM [...] Procedure Note | + + | Service Sherrell, Radiant Res In Interface - 12/08/2019 8:49 AM [...] necessary, edited the report. I agree with e report as now presented. | | [...] | | | + +---------+ + + documented in this encounter Visit Diagnoses + + | Diagnosis | + + | MF (myelofibrosis) (HCC) Myelofibrosis | + + documented in this encounter"
--- OUTSIDE RECORDS SUMMARY | ~2019-12-27 | XMS | Encounter Summary ---
Demographics + + + | Address | [address] | | | [place] [address] | + + + | Home Phone | | + + + | Preferred Language | Unknown | + + + | Marital Status | | + + + | Sabianist Affiliation | LUT | + + + [...] Team Providers + +------+ + | Care Qa Software Test Engineer Name | Role | Phone | + +------+ + | SilverioMargarita crawford ECHOMETER ENGINEER | PCP | | + +------+ + [...] | | | | | | [place] [address] | | | | | | [phone] | | | | | | | | +--------+ + + + + | 01/14/ | Appointment | Hematology & | Onc, Gen [address] | | | 2019 | | Oncology | [place] | | | | | | [place] [address] | | +--------+ + + + + documented as of this encounter Visit Diagnoses Not on filedocumented in this encounter"
--- OUTSIDE RECORDS SUMMARY | ~2019-12-27 | XMS | Encounter Summary ---
Demographics + + + | Address | [address] | | | [place] [address] | + + + | Home Phone [...] + + + | Author | [facility] | + + + | Organization | [facility] | + + + | Address [...] Team Providers + +------+ + | Care Knowledge Engineer Name | Role | Phone | + +------+ + | Margarita Patterson | PCP | | + +------+ + Encounter Details +--------+ + + + + | Date | Type | Department | Care Team | Description | +--------+ + + + + | 08/10/ | Supervisor Film Processing | [facility] | Daysi Mccauley MD | MDS (myelodysplastic | | 2020 | | Clinics at S | [address] [facility] | syndrome) (HCC) | | | | [facility] [address] [place], | (Primary Dx) | | | | [facility] | [place] [address] | | | | | Health and Healing, | [phone] | | | | | [address] | | | | | | [place], [place] | | | | | | [address] | | | | | | [phone] | | | +--------+ + + + [...] | | | | | | [place], | | | | | | [place] [address] | | | | | | [phone] | | | | | | | | +--------+ + + + + | 01/14/ | Appointment | Hematology & | Onc, Gen [address] | | | 2019 | | Oncology | [place] | | | | | | [place] [address] | | +--------+ + + + + [...] | | | | | evidence for [id number] | | | | | | fusion.Results [...] clinical | | | | | | central office equipment engineer. | | | | + + + [...] | This test was developed | | [facility] | | | | and its performance | | DIAGNOSTIC | | | | characteristics | | | | | | determined by the [facility] | | LABORATORIE | | | | [...] | | | | | (CLIA). The [facility] | | | | | | Diagnostics | | | | | | Laboratories are fully | | | | | | licensed by the state of | | | | | | [place] under CLIA and | | | | | | are accredited by the | | | | | | [employer] | | | | | | Pathologists (CAP). | | | | | | Captain Of Guards: | | | | | | Antony [...] + + + + | FINN | [address] | [place] [address] | | | DIAGNOSTIC | [address] | | | | LABORATORIES | | | | + + + + + documented in this encounter Visit Diagnoses + + | Diagnosis | + + | MDS (myelodysplastic syndrome) (HCC) - Primary Myelodysplastic syndrome, unspecified | + + documented in this encounter"
--- OUTSIDE RECORDS SUMMARY | ~2019-12-27 | XMS | Encounter Summary ---
Demographics + + + | Address | [address] | | | [place] [address] | + + + | Home Phone [...] + + + | Author | [facility] | + + + | Organization | [facility] | + + + | [...] Team Providers + +------+ + | Care Car Jockey Name | Role | Phone | + +------+ + | Oz Rodriguez MD | PCP | | + +------+ + Encounter Details +--------+ + + + + | Date | Type | Department | Care Team | Description | +--------+ + + + + | 12/16/ | Pharmacy | [facility] | | | | 2020 | Visit | [address] | | | | | | [address] | | | | | | [place] [address] | | | | | | [phone] | | | +--------+ + + + [...] | | | | | [place], | | | | | | [place] [address] | | | | | | [phone] | | | | | | | | +--------+ + + + + | 01/14/ | Appointment | Hematology & | Onc, [address] | | | 2019 | | Oncology | [place] | | | | | | [place] [address] | | +--------+ + + + + documented as of this encounter Visit Diagnoses Not on filedocumented in this encounter"
--- OUTSIDE RECORDS SUMMARY | ~2019-12-27 | XMS | Encounter Summary ---
Demographics + + + | Address | [address] | | | [place] [address] | + + + | Home Phone [...] Team Providers + +------+ + | Care Manager Wealth Management Name | Role | Phone | + +------+ + | Oz Rodriguez MD | PCP | | + +------+ + Encounter Details +--------+ + + + + | Date | Type | Department | Care Team | Description | +--------+ + + + + | 09/01/ | Pharmacy | [facility] | | | | 2020 | Visit | [address] | | | | | | [address] | | | | | | [place] [address] | | | | | | [phone] | | | +--------+ + + + [...] | | | | | | [place] [address] | | | | | | [phone] | | | | | | | | +--------+ + + + + | 01/14/ | Appointment | Hematology & | Onc, [address] | | | 2019 | | Oncology | [place] | | | | | | [place] [address] | | +--------+ + + + + documented as of this encounter Visit Diagnoses Not on filedocumented in this encounter"
--- OUTSIDE RECORDS SUMMARY | ~2019-12-27 | XMS | Encounter Summary ---
Demographics + + + | Address | [address] | | | [place] [address] | + + + | Home Phone | | + + + | Preferred Language | Unknown | + + + | Marital Status | | + + + | Zoroastrianism Affiliation | LUT | + + + | Race | White | + + + | Ethnic Group | Not or | + + + Author + + + | Author | [facility] | + + + | Organization | [facility] | + + + | Address [...] Team Providers + +------+ + | Care Food And Beverage Server Name | Role | Phone | + +------+ + | Oz Rodriguez MD | PCP | | + +------+ + Encounter Details +--------+ + + + + | Date | Type | Department | Care Team | Description | +--------+ + + + + | 10/09/ | Pharmacy | Pharmacy @ [facility] | | | | 2020 | Visit | [address] | | | | | | [place] Mailcode: | | | | | | [facility] | | | | | | and [address], | | | | | | [address] | | | | | | [place], [place] | | | | | | [address] | | | +--------+ + + + [...] | | | | | [place], | | | | | | [place] [address] | | | | | | [phone] | | | | | | | | +--------+ + + + + | 01/14/ | Appointment | Hematology & | Onc, [address] | | | 2020 | | Oncology | [place], | | | | | | [place] [address] | | +--------+ + + + + documented as of this encounter Visit Diagnoses Not on filedocumented in this encounter"
--- OUTSIDE RECORDS SUMMARY | ~2019-12-27 | XMS | Encounter Summary ---
Demographics + + + | Address | [address] | | | [place] [address] | + + + | Home Phone [...] Team Providers + +------+ + | Care Tooth Cutter Spur Name | Role | Phone | + [...] | | | | | | [facility] | | | | | | Health and Healing, | | | | | | [address] | | | | | | [place], [place] | | | | | | [address] | | | | | | [phone] | | | +--------+ + + + [...] | | | | | [place], | | | | | | [place] [address] | | | | | | [phone] | | | | | | | | +--------+ + + + + | 01/14/ | Appointment | Hematology & | Onc, [address] | | | 2020 | | Oncology | [place] | | | | | | [place] [address] | | +--------+ + + + + [...] + + + + | PRODUCT | [id number] | | [facility] | | | UNIT [...] + + + + | EXPIRATION | [id number] | | [facility] | | | DATE [...] + + + + | BLOOD | [id number] | | [facility] | | | PRODUCT [...] [facility] | [address] | [place] [address] | | | SERVICES, | [address] [...] + + + + | PRODUCT | [id number] | | [facility] | | | UNIT [...] + + + + | EXPIRATION | [id number] | | [facility] | | | DATE [...] + + + + | BLOOD | [id number] | | [facility] | | | PRODUCT [...] [facility] | [address] | [place] [address] | | | SERVICES, | [address] [...] [facility] | [address] | [place] [address] | | | SERVICES, | [address] [...] [facility] | [address] | [place] [address] | | | SERVICES, | [address] | | | | TRANSFUSION MEDICINE | | | | + + + + + documented in this encounter Visit Diagnoses + + | Diagnosis | + + | Pancytopenia (HCC) - Primary Other pancytopenia | + + documented in this encounter"
--- OUTSIDE RECORDS SUMMARY | ~2019-12-27 | XMS | Encounter Summary ---
Demographics + + + | Address | [address] | | | [place] [address] | + + + | Home Phone [...] Team Providers + +------+ + | Care Applique Cutter Name | Role | Phone | + +------+ + | SilverioMragarita crawford SCIENCE CONSULTANT | PCP | | + +------+ + Encounter Details +--------+--------+ + + + | Date | Type | Department | Care Team | Description | +--------+--------+ + + + | 09/10/ | Travel | | | | | [...] | | | | | | [place] [address] | | | | | | [phone] | | | | | | | | +--------+ + + + + | 01/14/ | Appointment | Hematology & | Onc, [address] | | | 2019 | | Oncology | [place] | | | | | | [place] [address] | | +--------+ + + + + documented as of this encounter Visit Diagnoses Not on filedocumented in this encounter"
--- OUTSIDE RECORDS SUMMARY | ~2019-12-27 | XMS | Encounter Summary ---
Demographics + + + | Address | [address] | | | [place] [address] | + + + | Home Phone [...] + + + | Author | [facility] | + + + | Organization | [facility] | + + + | [...] Team Providers + +------+ + | Care Wellness Health Coach Name | Role | Phone | + +------+ + | Oz Rodriguez MD | PCP | | + +------+ + Reason for Visit + + + | Reason | Comments | + + + | Oral Chemo | Ruxolitinib | + + + Encounter Details +--------+ + + + + | Date | Type | Department | Care Team | Description | +--------+ + + + + | 12/16/ | Telephone | [facility] | Cherry Roper PharmD | Oral Chemo | | 2020 | | Clinics at S | [address] | (Ruxolitinib) | | | | [facility] [address] | [facility] | | | | | [facility] | [place], [place] | | | | | Health and Healing, | [address] | | | | | [address] | | | | | | [place], [place] | | | | | | [address] | | | | | | [phone] | | | +--------+ + + + [...] | | | | | | [place] [address] | | | | | | [phone] | | | | | | | | +--------+ + + + + | 01/14/ | Appointment | Hematology & | Onc, [address] | | | 2019 | | Oncology | [place], | | | | | | [place] [address] | | +--------+ + + + + documented as of this encounter Visit Diagnoses Not on filedocumented in this encounter"
--- OUTSIDE RECORDS SUMMARY | ~2019-12-27 | XMS | Encounter Summary ---
Demographics + + + | Address | [address] | | | [place] [address] | + + + | Home Phone | | + + + | Preferred Language | Unknown | + + + | Marital Status | | + + + | Advent Affiliation | LUT | + + + [...] Team Providers + +------+ + | Care Regulatory Attorney Name | Role | Phone | + +------+ + | SilverioMargarita crawford HAT MENDER | PCP | | + +------+ + [...] | | | | | | [place] [address] | | | | | | [phone] | | | | | | | | +--------+ + + + + | 01/14/ | Appointment | Hematology & | Onc, [address] | | | 2019 | | Oncology | [place] | | | | | | [place] [address] | | +--------+ + + + + documented as of this encounter Visit Diagnoses Not on filedocumented in this encounter"
--- OUTSIDE RECORDS SUMMARY | ~2019-12-27 | XMS | Encounter Summary ---
Demographics + + + | Address | [address] | | | [place] [address] | + + + | Home Phone [...] + + + | Author | [facility] | + + + | Organization | [facility] | + + + | [...] Team Providers + +------+ + | Care Online Health And Fitness Coach Name | Role | Phone | + +------+ + | Oz Rodriguez MD | PCP | | + +------+ + Encounter Details +--------+ + + + + | Date | Type | Department | Care Team | Description | +--------+ + + + + | 12/02/ | Pharmacy | [facility] | | | | 2020 | Visit | [address] [place] | | | | | | [address] | | | | | | [place] [address] | | | | | | [phone] | | | +--------+ + + + [...] | | | | | | [place] [address] | | | | | | [phone] | | | | | | | | +--------+ + + + + | 01/14/ | Appointment | Hematology & | Onc, [address] | | | 2019 | | Oncology | [place] | | | | | | [place] [address] | | +--------+ + + + + documented as of this encounter Visit Diagnoses Not on filedocumented in this encounter"
--- OUTSIDE RECORDS SUMMARY | ~2019-12-27 | XMS | Encounter Summary ---
Demographics + + + | Address | [address] | | | [place] [address] | + + + | Home Phone [...] Team Providers + +------+ + | Care Hospital Chaplain Name | Role | Phone | + +------+ + | Oz Rodriguez MD | PCP | | + +------+ + Encounter Details +--------+ + + + + | Date | Type | Department | Care Team | Description | +--------+ + + + + | 12/16/ | Pharmacy | [facility] | | | | 2020 | Visit | [address] | | | | | | [address] | | | | | | [place] [address] | | | | | | [phone] | | | +--------+ + + + [...] | | | | | [place], | | | | | | [place] [address] | | | | | | [phone] | | | | | | | | +--------+ + + + + | 01/14/ | Appointment | Hematology & | Onc, [address] | | | 2019 | | Oncology | [place] | | | | | | [place] [address] | | +--------+ + + + + documented as of this encounter Visit Diagnoses Not on filedocumented in this encounter"
--- OUTSIDE RECORDS SUMMARY | ~2019-12-27 | XMS | Encounter Summary ---
Demographics + + + | Address | [address] | | | [place] [address] | + + + | Home Phone [...] Team Providers + +------+ + | Care Massotherapist Name | Role | Phone | + +------+ + | Oz Rodriguez MD | PCP | | + +------+ + Encounter Details +--------+ + + + + | Date | Type | Department | Care Team | Description | +--------+ + + + + | 08/27/ | Telephone | [facility] | Daysi Mccauley MD | | | 2019 | | Clinics at S | [address] | | | | | [address] | [address] [place], | | | | | [facility] | [place] [address] | | | | | Health and Healing, | [phone] | | | | | [facility] [address] | | | | | | [place], [place] | | | | | | [address] | | | | | | [phone] | | | +--------+ + + + [...] | | | | | [place], | | | | | | [place] [address] | | | | | | [phone] | | | | | | | | +--------+ + + + + | 01/14/ | Appointment | Hematology & | Onc, [address] | | | 2020 | | Oncology | [place], | | | | | | [place] [address] | | +--------+ + + + + documented as of this encounter Visit Diagnoses Not on filedocumented in this encounter"
--- OUTSIDE RECORDS SUMMARY | ~2019-12-27 | XMS | Encounter Summary ---
Demographics + + + | Address | [address] | | | [place] [address] | + + + | Home Phone [...] Team Providers + +------+ + | Care Trial Court Judge Name | Role | Phone | + [...] on | Clinics at S | [address] | | | | | [address] [place], | | | | | [facility] | [place] [address] | | | | | Health and Healing, | [phone] | | | | | [address] | | | | | | [place], [place] | | | | | | [address] | | | | | | [phone] | | | +--------+ + + + [...] | | | | | [place], | | | | | | [place] [address] | | | | | | [phone] | | | | | | | | +--------+ + + + + | 01/14/ | Appointment | Hematology & | Onc, [address] | | | 2020 | | Oncology | [place], | | | | | | [place] [address] | | +--------+ + + + + documented as of this encounter Visit Diagnoses Not on filedocumented in this encounter"
--- OUTSIDE RECORDS SUMMARY | ~2019-12-27 | XMS | Encounter Summary ---
Demographics + + + | Address | [address] | | | [place] [address] | + + + | Home Phone | | + + + | Preferred Language | Unknown | + + + | Marital Status | | + + + | Catholic Affiliation | LUT | + + + | Race | White | + + + | Ethnic Group | Not or | + + + Author + + + | Author | [facility] | + + + | Organization | [facility] | + + + | Address [...] Providers + +------+ + | Care Medical Transcription Supervisor Name | Role | Phone | + +------+ + | Oz Rodriguez MD | PCP | | + +------+ + Encounter Details +--------+ + + + + | Date | Type | Department | Care Team | Description | +--------+ + + + + | 10/23/ | Pharmacy | Pharmacy @ [facility] | | | | 2019 | Visit | [address] | | | | | | [address] Mailcode: | | | | | | [facility] | | | | | | and [address], | | | | | | [address] | | | | | | [place], [place] | | | | | | [address] | | | +--------+ + + + [...] | | | | | | [place] [address] | | | | | | [phone] | | | | | | | | +--------+ + + + + | 01/14/ | Appointment | Hematology & | Onc, [address] | | | 2019 | | Oncology | [place], | | | | | | [place] [address] | | +--------+ + + + + documented as of this encounter Visit Diagnoses Not on filedocumented in this encounter"
--- OUTSIDE RECORDS SUMMARY | ~2019-12-27 | XMS | Encounter Summary ---
Demographics + + + | Address | [address] | | | [place] [address] | + + + | Home Phone [...] Team Providers + +------+ + | Care Newspaper Vendor Name | Role | Phone | + +------+ + | Oz Rodriguez MD | PCP | | + +------+ + Encounter Details +--------+ + + + + | Date | Type | Department | Care Team | Description | +--------+ + + + + | 09/16/ | Pharmacy | Pharmacy @ [facility] | | | | 2020 | Visit | [address] | | | | | | [address] [place] Mailcode: | | | | | | [facility] | | | | | | and [address], | | | | | | [address] | | | | | | [place], [place] | | | | | | [address] | | | +--------+ + + + [...] | | | | | [place], | | | | | | [place] [address] | | | | | | [phone] | | | | | | | | +--------+ + + + + | 01/14/ | Appointment | Hematology & | Onc, [address] | | | 2020 | | Oncology | [place], | | | | | | [place] [address] | | +--------+ + + + + documented as of this encounter Visit Diagnoses Not on filedocumented in this encounter"
--- OUTSIDE RECORDS SUMMARY | ~2019-12-27 | XMS | Encounter Summary ---
Demographics + + + | Address | [address] | | | [place] [address] | + + + | Home Phone | | + + + | Preferred Language | Unknown | + + + | Marital Status | | + + + | Taoism Affiliation | LUT | + + + [...] Team Providers + +------+ + | Care City Manager Name | Role | Phone | + +------+ + | Oz Rodriguez MD | PCP | | + +------+ + Encounter Details +--------+ + + + + | Date | Type | Department | Care Team | Description | +--------+ + + + + | 11/19/ | MyChart | Diagnostic Imaging | | MRI Screening Form | | 2020 | Encounter | [address] | | | [address] | | | | | | [place], [place] | | | | | | [address] | | | +--------+ + + + [...] | | | | | [place], | | | | | | [place] [address] | | | | | | [phone] | | | | | | | | +--------+ + + + + | 01/14/ | Appointment | Hematology & | Onc, [address] | | | 2019 | | Oncology | [place] | | | | | | [place] [address] | | +--------+ + + + + documented as of this encounter Visit Diagnoses Not on filedocumented in this encounter"
--- OUTSIDE RECORDS SUMMARY | ~2019-12-27 | XMS | Encounter Summary ---
Demographics + + + | Address | [address] | | | [place] [address] | + + + | Home Phone | | + + + | Preferred Language | Unknown | + + + | Marital Status | | + + + | Uatsdin Affiliation | LUT | + + + [...] Team Providers + +------+ + | Care Wealth Management Director Name | Role | Phone | [...] + + | 12/15/ | Documentati | [facility] | Daysi Mccauley MD | Research | | 2020 | on | Clinics at S | [address] [facility] | Documentation | | | | [address] [place], | | | | | [facility] | [place] [address] | | | | | Health and Healing, | [phone] | | | | | [address] | | | | | | [place], [place] | | | | | | [address] | | | | | | [phone] | | | +--------+ + + + [...] | | | | | | [place] [address] | | | | | | [phone] | | | | | | | | +--------+ + + + + | 01/14/ | Appointment | Hematology & | Onc, [address] | | | 2019 | | Oncology | [place], | | | | | | [place] [address] | | +--------+ + + + + documented as of this encounter Visit Diagnoses Not on filedocumented in this encounter"
--- OUTSIDE RECORDS SUMMARY | ~2019-12-27 | XMS | Encounter Summary ---
Demographics + + + | Address | [address] | | | [place] [address] | + + + | Home Phone [...] Team Providers + +------+ + | Care Set Illustrator Name | Role | Phone | + +------+ + | SilverioMargarita crawford PATIENT LIAISON | PCP | | + +------+ + Encounter Details +--------+--------+ + + + | Date | Type | Department | Care Team | Description | +--------+--------+ + + + | 08/25/ | Travel | | | | | [...] | | | | | | [place] [address] | | | | | | [phone] | | | | | | | | +--------+ + + + + | 01/14/ | Appointment | Hematology & | Onc, [address] | | | 2019 | | Oncology | [place] | | | | | | [place] [address] | | +--------+ + + + + documented as of this encounter Visit Diagnoses Not on filedocumented in this encounter"
--- OUTSIDE RECORDS SUMMARY | ~2019-12-27 | XMS | Encounter Summary ---
Demographics + + + | Address | [address] | | | [place] [address] | + + + | Home Phone [...] Team Providers + +------+ + | Care Warehouse Worker 2Nd Shift Name | Role | Phone | + +------+ + | Margarita Patterson | PCP | | + +------+ + Encounter Details +--------+---------+ + + + | Date | Type | Department | Care Team | Description | +--------+---------+ + + + | 12/03/ | Office | [facility] | Daysi Mccauley MD | MF (myelofibrosis) | | 2020 | Visit | Clinics at S | [address] | (HCC); On | | | | [address], | antineoplastic | | | | [facility] for | [place] [address] | chemotherapy ; | | | | Health and Healing, | [phone] | Adverse effect of | | | | [address] | | chemotherapy, | | | | [place], [place] | | initial encounter | | | | [address] | | | | | | [phone] | | | +--------+---------+ + + + [...] + + + | Blood Pressure | 119/61 | 12/04/2019 1:11 PM | | | | | PDT | | + + + + + | Pulse | 71 | 12/04/2019 1:11 PM | | | | | PDT | | + + + + + | Temperature | 36.9 C (98.5 F) | 12/04/2019 1:11 PM | | | | | PDT | | + + + + + | Respiratory Rate | 14 | 12/04/2019 1:11 PM | | | | | PDT | | + + + + + | Oxygen Saturation | 100% | 12/04/2019 1:11 PM | | | | | PDT | | + + + + + | Inhaled Oxygen | - | - | | | Concentration | | | | + + + + + | Weight | 97.1 kg (214 lb) | 12/04/2019 1:11 PM | | | [...] documented as of this encounter Progress Notes Daysi Mccauley MD - 12/04/2019 1:00 PM PDT 12/04/2019 Myelofibrosis Follow Up Visit: Fidelia Pickett is a 69 year old female who was referred t o our clinic for management of newly diagnosed Myelofibrosis in the setting of pancytopenia and bone marrow abnormalities. History of Present Illness: Fidelia Pickett is presenting today for after new likely diagnosis of MF. The patient has a past medical history that includes HTN and hypothyroidism. The patient's hematological hi story dates back to 08/02/2019 where she was seen in the ED in [place], [place] for dyspnea. Fou nd to be pancytopenic including Hgb/HCT of 6.3/18.1 and platelet count at 42. She was transf used two units and discharged home with plan for follow-up and BMBx at [facility]. Subsequently admitted from 08/04-08/08/2019 at [facility] d/t pancytopenia. BMBx performed on 0. [...] of BMBx with Dr. Sherri chamberlain at [facility]. She had been doing [...] and need for supportive transfusions. Today: Patient presents to clinic today accompanied by her . States she has surprisi ngly been feeling well since discontinuing Jakafi and antimicrobials, and has not needed tra nsfusion for over a week. No new pains, but patient continues to have significant memory los s. Her arthralgias continue to be well-controlled for the last few months. No new complaints . Review of Systems Constitutional: Positive for malaise/fatigue. HENT: Negative. Eyes: Negative. Respiratory: Negative. Cardiovascular: Negative. Gastrointestinal: Negative. Genitourinary: Negative. Musculoskeletal: Negative. Skin: Negative. Neurological: Negative. Endo/Heme/Allergies: Negative. Psychiatric/Behavioral: [...] history: No family history of blood cancers. Vitals: 12/04/19 1311 BP: 119/61 BP Location: Left upper arm Patient Position: Sitting Pulse: 71 Resp: 14 Temp: 36.9 C (98.5 F) TempSrc: Oral SpO2: 100% Weight: 97.1 kg (214 lb) Height: 1.676 m (5' 6") PainSc: 0 - Zero ECO Physical Exam Constitutional: She is oriented [...] no distension. There is no abdominal tenderness. + splenomegaly Musculoskeletal: Normal range of motion. General: No edema. Neurological: She is alert and oriented to person, place, and time. No cranial nerve defici t. Skin: Skin is warm and dry. No rash noted. Laboratory Onc/Maria Ines CBC Assess Latest Ref Rng & Units 09/11/2019 11/10/2019 12/04/2019 CBC - White Cell Count 3.50 - 10.80 K/cu mm 2.25(L) 2.67(L) 2.28(L) Red Cell Count 4.00 - 5.20 M/cu mm 3.10(L) 3.08(L) 2.53(L) Hemoglobin 12.0 - 16.0 g/dL 8.8(L) 9.0(L) 7.4(L) Hematocrit 36.0 - 46.0 % 25.3(L) 26.7(L) 22.1(L) MCV 80.0 - 100.0 fL 81.6 86.7 87.4 MCHC 32.0 - 36.0 g/dL 34.8 33.7 33.5 RDW SD 35.1 - 46.3 fL 37.4 45.0 44.6 Platelet Count 150 - 400 K/cu mm 16(L) 14(L) 20(L) NRBC % 0.0 - 0.3 % 0.0 3.7(H) 1.8(H) NRBC # 0.00 - 0.02 K/cu mm 0.00 0.10(H) 0.04(H) Neutrophil % 50.0 - 70.0 % 3.6(L) 19.1(L) 38.6(L) Lymphocyte % 18.0 - 42.0 % 90.1(H) 72.7(H) 43.9(H) Monocyte % 3.5 - 9.0 % 1.8(L) 5.5 7.0 EOS # 0.00 - 0.50 K/cu mm 0.00 0.02 0.02 BASO # 0.00 - 0.10 K/cu mm 0.00 0.00 0.02 Immature Granulocyte # 0.00 - 0.10 K/cu mm 0.00 0.02 0.10 NEUTROPHILCO 0.51 (L) 11/10/2019 NEUTROPHILCO 0.88 (L) 12/04/2019 Onc/Maria Ines CMP Assess Latest Ref Rng & Units 09/09/2019 09/11/2019 11/10/2019 CMP - Sodium, plasma 136 - 145 mmol/L 137 135(L) 136 Potassium, plasma 3.4 - 5.0 mmol/L 3.8 3.3(L) 4.0 Chloride, plasma 97 - 108 mmol/L 100 99 100 Total C02, plasma 21 - 32 mmol/L 28 26 27 Anion Gap 4 - 11 mmol/L 9 10 9 Anion Gap (Alb corrected) 4 - 11 mmol/L 10 12(H) 9 BUN, plasma 6 - 20 mg/dL 22(H) 25(H) 23(H) Creatnine, plasma 0.60 - 1.10 mg/dL 0.94 0.93 0.86 Glucose, plasma 70 - 99 mg/dL 140(H) 216(H) 102(H) Calcium, plasma 8.6 - 10.2 mg/dL 10.2 9.3 8.8 Calcium (Alb corrected) 8.6 - 10.2 mg/dL 10.8(H) 10.0 9.0 Magnesium, plasma 1.6 - 2.6 mg/dL 1.9 1.8 - Phosphorus, plasma 2.4 - 4.7 mg/dL 3.8 3.8 - AST (SGOT) <=41 U/L 15 14 66(H) ALT (SGPT) <=60 U/L 20 20 98(H) ALK Phos 53 - 141 U/L 145(H) 137 450(H) LD Total, plasma <=250 U/L - - - Bilirubin Total 0.3 - 1.2 mg/dL 0.3 0.3 0.6 Total Protein, plasma 6.4 - 8.2 g/dL 8.0 7.5 7.4 Albumin, plasma 3.5 - 4.7 g/dL 3.3(L) 3.1(L) 3.7 CK 38 - 234 U/L - - [...] found in m yeloid malignancies such as [id number] are recommended. Labs, imaging, and pathology discussed with pt and family. Assessment and recommendations 1. Intermediate-2 risk MF: On 08/26/2019, she was started on Ruxulotinib at a low dose of 5 mg PO BID to see how she responds. Per her -Fidelia felt a lot better, her joint pain s & energy levels were improving. Per pt her thinking/memory is still poor though from her f arvind's perspective she is much improved. On 11/26/2019, patient discontinued Jakafi and anti microbials in anticipation of enrolling in CTI PAC-203 "A Phase 2/3 Study of Pacritinib in P atients with Primary Myelofibrosis, Post Polycythemia Vera Myelofibrosis, or Post-Essential Thrombocythemia Myelofibrosis" eIRB# [id number]. Research Consent: I saw Ms. Fidelia Pickett during an office visit, at which time we discusse d CTI "A Phase 2/3 Study of Pacritinib in Patients with Primary Myelofibrosis, Post Polycythemia Vera Myelofibrosis, or Post-Essential Thrombocythemia Myelofibrosis" eIRB# [id number] The patient expressed interest in learning more about the trial and I provided detailed inf ormation. The consent document was reviewed and the voluntary nature of participating in a clinical trial was emphasized. All risks, benefits and alternatives to participating in the trial were also presented to the patient. I have reviewed the inclusion and exclusion criteria and verify that any coexisting medical conditions do not interfere with study procedures and results. Childbearing status and use of contraceptives was discussed: the patient is not considered to be of childbearing potential. Performance status of this patient is: ECOG 1 The patient asked valid questions and responses were provided. The patient verbalized unde rstanding of the details of the trial and the content of the consent. The patient and I sig juan the consent form prior to the start of any study procedures. For consent and screening d one on same day, all study-related procedures were done after consent was obtained. A copy of the signed consent was provided to the patient. The patient was informed of the nature of the study and understands that all samples, inclu ding blood, bone marrow would be taken during standard of care procedures. After discussing the consent in detail and allowing ample time for questions to be asked and answered, the p atient agreed to participate in the study and gave their informed consent. The patient was p rovided a copy of the signed form. 2. Memory loss: Pt has been evaluated by Geriatrics with a comprehensive memory evaluation , was found to have mild dementia ,neuro imaging shows mild cerebral atrophy with no other s ignificant findings. RTC in 4-8 weeks. I am Mor Coates functioning as a scribe for Daysi Mccauley MD at 1:11 PM on 12/04/2019 I have reviewed and verified the above scribed note of my visit with this patient as record ed by Mor Coates. Daysi Mccauley, Fruit Pitter, Section for Hematologic Malignancies. [facility] documented in this enco unter Plan [...] Hematology | Daysi Mccauley MD | | 2019 | Visit | Malignancy | [address] | | | | | | [place] [place], | | | | | | [place] [address] | | | | | | [phone] | | | | | | | | +--------+ + + + + | 01/14/ | Appointment | Hematology & | Onc, Gen [address] | | | 2019 | | Oncology | [place], | | | | | | [place] [address] | | +--------+ + + + + [...] e | 1:42 PM | (HCC) | | | | | [...] DIFFERENTIAL | e | 1:42 PM | (HCC) [...] documented in this encounter Results RBC MORPHOLOGY (12/04/2019 1:42 PM PDT) + + | Specimen | + + | Blood - Blood | | (substance) | + + + + + + + | Performing | Address | City/State/Zipcode | Phone Number | | Organization | | | | + + + + + | [facility] | [address] | [place] [address] | | | [facility] | | | | | HEALTH + HEALING | | | | + + + + + MANUAL DIFFERENTIAL (12/04/2019 1:42 PM PDT) + + + + + + | Component | Value | Ref Range | Performed | Pathologist | | | | | At | Signature | + + + + + + | NEUTROPHIL | 38.6 (L) | 50.0 - 70.0 % | [facility] | | | % | | | LABORATORY | | | | | | SERVICES, | | | | | | [facility] | [facility] | | [facility] + | | | | | | HEALING | | + + + + + + | LYMPHOCYTE | 43.9 (H) | 18.0 - 42.0 % | [facility] | | | % | | | LABORATORY | | | | | | SERVICES, | | | | | | [facility] | | | | | | [facility] + | | | | | | HEALING | | + + + + + + | MONOCYTE % | 7.0 | 3.5 - 9.0 % | [facility] [...] + + + + | IG% | 4.4 (H) | 0.0 - 1.0 % | [facility] | | | | | | LABORATORY | | | | | | SERVICES, | | | | | | [facility] | | | | | | [facility] + | | | | | | HEALING | | + + + + + + | ATYPICAL | 4.4 (H)Comment: Atypical | 0.0 % | [facility] [...] + + + + | NEUTROPHIL | 0.88 (L) | 1.80 - 7.70 | [facility] | | | # | | K/cu mm | LABORATORY | | | | | | SERVICES, | | | | | | [facility] | | | | | | HE[facility] + | | | | | | HEALING | | + + + + + + | LYMPHOCYTE | 1.00 | 1.00 - 4.80 | [facility] | | | # | | K/cu mm | LABORATORY | | | | | | SERVICES, | | | | | | [facility] | | | | | | HE[facility] + | | | | | | HEALING | | + + + + + + | MONOCYTE # | 0.16 | 0.10 - 0.90 | [facility] | [...] + + + | BASOPHIL # | 0.02 | 0.00 - 0.10 | [facility] | | | | | K/cu mm | LABORATORY | | | | | | SERVICES, | | | | | | [facility] | | | | | | HE[facility] + | | | | | | HEALING | | + + + + + + | IG# | 0.10 | 0.00 - 0.10 | [facility] | [...] | + + + + + | [facility] | [address] | [place] [address] | | | SERVICES, [facility] | | | | | HEALTH + HEALING | | | | + + + + + CBC AND AUTO DIFF (12/04/2019 1:42 PM PDT) + + + + + + | Component | Value | Ref Range | Performed | Pathologist | | | | | At | Signature | + + + + + + | WHITE CELL | 2.28 (L) | 3.50 - 10.80 | [facility] [...] + + + + | HEMATOCRIT | 22.1 (L) | 36.0 - 46.0 % | [...] + + + + | MCHC | 33.5 | 32.0 - 36.0 | [facility] | | | | | g/dL | LABORATORY | | | | | | SERVICES, | | | | | | [facility] | | | | | | HE[facility] + | | | | | | HEALING | | + + + + + + | RDW SD | 44.6 | 35.1 - 46.3 fL | [facility] | | | | | | LABORATORY | | | | | | SERVICES, | | | | | | [facility] | | | | | | HE[facility] + | | | | | | HEALING | | + + + + + + | PLATELET | 20 (L) | 150 - 400 K/cu | [...] + + + + | NRBC% | 1.8 (H) | 0.0 - 0.3 % | [facility] | | | | | | LABORATORY | | | | | | SERVICES, | | | | | | [facility] | | | | | | [facility] + | | | | | | HEALING | | + + + + + + | NRBC# | 0.04 (H) | 0.00 - 0.02 | [facility] | | | | | K/cu mm | LABORATORY | | | | | | SERVICES, | | | | | | [facility] | | | | | | HEALTH + | | | | | | HEALING | | + + + + + + | NEUTROPHIL | 0.88 (L)Comment: | 1.80 - 7.70 | [facility] [...] LABORATORY | [address] | [place] [address] | | | [facility] | | | | | HEALTH [...] LABORATORY | | | | | | [facility], | | | | | | CORE [...] [facility] | [address] | [place] [address] | | | SERVICES, CORE | PARK [...] | + + + + + | [facility] | [address] | [place] [address] | | | MEGAN, ANY | [address] | | | + + + + + [facility] - MAGNESIUM, PLASMA (12/04/2019 1:42 PM PDT) + +-------+ + + + | Component | Value | Ref Range | Performed | Pathologist | | | | | At | Signature | + +-------+ + + + | MAGNESIUM,P | 2.1 | 1.6 - 2.6 mg/dL | [facility] | | | LASMA | | | LABORATORY | | | | | | MEGAN | | | | | | ANY | | + +-------+ + + + + + | Specimen | + + | Blood - Blood | | (substance) | + + + + + + + | Performing | Address | City/State/Zipcode | Phone Number | | Organization | | | | + + + + + | [facility] | [address] | [place] [address] | | | SERVICES, CORE | [address] [...] [facility] | [address] | [place] [address] | | | SERVICES, CORE | [address] [...] | + + + + + | [facility] | [address] | [place] [address] | | | SERVICES, CORE | [address] [...] [facility] | [address] | [place] [address] | | | SERVICES, ANY | [address] | | | + [...] [facility] | [address] | [place] [address] | | | SERVICES, CORE | PARK [...] | + + + + + | [facility] | [address] | [place] [address] | | | SERVICES, CORE | [address] | | | + + + + [...] | | | LABORATORY | | | [facility] | | | SERVICES, | | | [...] | + + + + + | [facility] | [address] | [place] [address] | | | SERVICES, CORE | [address] | | | + + + + + documented in this encounter Visit Diagnoses + + | Diagnosis | + + | MF (myelofibrosis) (HCC) Myelofibrosis | + + | On antineoplastic chemotherapy | + + | Adverse effect of chemotherapy, initial encounter | + + documented in this encounter
--- OUTSIDE RECORDS SUMMARY | ~2019-12-27 | XMS | Encounter Summary ---
Demographics + + + | Address | [address] | | | [place] [address] | + + + | Home Phone [...] Team Providers + +------+ + | Care Pump House Engineer Name | Role | Phone | + +------+ + | Margarita Patterson | PCP | | + +------+ + Reason for Visit + + + | Reason | Comments | + + + | Telephone follow-up | Office visit vs Virtual visit | + + + Encounter Details +--------+ + + + + | Date | Type | Department | Care Team | Description | +--------+ + + + + | 11/06/ | Telephone | [facility] | Sheri Rosado, | Telephone follow-up | | 2020 | | Clinics at S | [address] | (Office visit vs | | | | [facility] [address] | Virtual visit) | | | | [facility] for | [place], [place] | | | | | Health and Healing, | [address] | | | | | [facility] | [phone] | | | | | [place], [place] | | | | | | [address] | | | | | | [phone] | | | +--------+ + + + [...] | | | | | [address] [place], | | | | | | [place] [address] | | | | | | [phone] | | | | | | | | +--------+ + + + + | 01/14/ | Appointment | Hematology & | Onc, Gen [address] | | | 2019 | | Oncology | [place], | | | | | | [place] [address] | | +--------+ + + + + documented as of this encounter Results [facility] - COMPLETE METABOLIC SET (11/10/2019 11:58 AM [...] | | | LABORATORY | | | [place] | | | SERVICES, | | | [...] MDRD equation recommended by the National | [facility] | | Kidney Disease Education [...] | + + + + + | [facility] | [address] | [place] [address] | | | SERVICES, [place] FOR | | | | | HEALTH [...] [facility] | [address] | [place] [address] | | | SERVICES, ANY | [address] | | | + + + + + documented in this encounter Visit Diagnoses + + | Diagnosis | + + | MF (myelofibrosis) (HCC) - Primary Myelofibrosis | + + documented in this encounter"
--- OUTSIDE RECORDS SUMMARY | ~2019-12-27 | XMS | Encounter Summary ---
Demographics + + + | Address | [address] | | | [place] [address] | + + + | Home Phone | | + + + | Preferred Language | Unknown | + + + | Marital Status | | + + + | Hinduism Affiliation | LUT | + + + | Race | White | + + + | Ethnic Group | Not or | + + + Author + + + | Author | [facility] | + + + | Organization | [facility] | + + + | Address | [...] Team Providers + +------+ + | Care Gate Attendant Name | Role | Phone | + +------+ + | Oz Rodriguez MD | PCP | | + +------+ + Encounter Details +--------+ + + + + | Date | Type | Department | Care Team | Description | +--------+ + + + + | 08/31/ | Pharmacy | Pharmacy @ [facility] | | | | 2020 | Visit | [address] | | | | | | [address] Mailcode: | | | | | | [facility] | | | | | | and [address], | | | | | | [address] | | | | | | [place], [place] | | | | | | [address] | | | +--------+ + + + [...] | | | | | [address] [place], | | | | | | [place] [address] | | | | | | [phone] | | | | | | | | +--------+ + + + + | 01/14/ | Appointment | Hematology & | Onc, Gen [address] | | | 2020 | | Oncology | [place], | | | | | | [place] [address] | | +--------+ + + + + documented as of this encounter Visit Diagnoses Not on filedocumented in this encounter"
--- OUTSIDE RECORDS SUMMARY | ~2019-12-27 | XMS | Encounter Summary ---
Demographics + + + | Address | [address] | | | [place] [address] | + + + | Home Phone [...] Team Providers + +------+ + | Care Activity Therapy Specialist Name | Role | Phone | + +------+ + | Oz Rodriguez MD | PCP | | + +------+ + Reason for Visit + + + | Reason | Comments | + + + | Care Coordination | | + + + | Care Coordination | NURSE [id number] call about 08/18 appt | + + + Encounter Details +--------+ + + + + | Date | Type | Department | Care Team | Description | +--------+ + + + + | 08/11/ | Telephone | [facility] | Daysi Mccauley MD | Care Coordination; | | 2019 | | Clinics at S | [address] [facility] | Care Coordination | | | | [address] | [address] [place], | (NURSE | | | | [facility] | [place] [address] | [id number] | | | | Health and Healing, | [phone] | call about 08/18 | | | | [address] | | appt) | | | | [place] | | | | | | [address] | | | | | | [phone] | | | +--------+ + + + [...] | | | | | [address] [place], | | | | | | [place] [address] | | | | | | [phone] | | | | | | | | +--------+ + + + + | 01/14/ | Appointment | Hematology & | Onc, Gen [address] | | | 2020 | | Oncology | [place], | | | | | | [place] [address] | | +--------+ + + + + documented as of this encounter Visit Diagnoses Not on filedocumented in this encounter"
--- OUTSIDE RECORDS SUMMARY | ~2019-12-27 | XMS | Encounter Summary ---
Demographics + + + | Address | [address] | | | [place] [address] | + + + | Home Phone | | + + + | Preferred Language | Unknown | + + + | Marital Status | | + + + | Caodaism Affiliation | LUT | + + + | Race | White | + + + | Ethnic Group | Not or | + + + Author + + + | Author | [facility] | + + + | Organization | [facility] | + + + | Address [...] Team Providers + +------+ + | Care Circuit Judge Name | Role | Phone | + +------+ + | Margarita Patterson | PCP | | + +------+ + Reason for Visit Diagnostic Testing (Routine) + +--------+ + + + + | Status | Reason | Specialty | Diagnoses / | Referred By | Referred To | | | | | Procedures | Contact | Contact | + +--------+ + + + + | New Request | | Cardiology | Diagnoses | Parisa, | Nadya | | | | | MF | Daysi Ramires MD | Health & | | | | | (myelofibros | [address] | [employer] | | | | | is) (HCC) | [facility] | [address] [facility] | | | | | Procedures | Rd | [facility] | | | | | TRANSTHORACI | [place], [place] | ROAD | | | | | C | [address] | [place], [place] | | | | | ECHOCARDIOGR | Phone: | [address] | | | | | AM, ADULT | [phone] | Phone: | | | | | | Fax: | [phone] | | | | | | [phone] | | + +--------+ + + + + Encounter Details +--------+ + + + + | Date | Type | Department | Care Team | Description | +--------+ + + + + | 12/08/ | Hospital | Cardiac | | | | 2020 | Encounter | Non-Invasive Testing | | | | | | at [facility] [address] | | | | | | e [place] for | | | | | | Health and Healing, | | | | | | [address] | | | | | | [place], [place] | | | | | | [address] | | | | | | [phone] | | | +--------+ + + + [...] documented as of this encounter Progress Notes Nadia Sesay - 12/09/2019 1:45 PM PDTTransthoracic echocardiogram completed. Final r eport to follow. documented in this enco unter Plan of [...] | | | | | | [place] [address] | | | | | | [phone] | | | | | | | | +--------+ + + + + | 01/14/ | Appointment | Hematology & | Onc, Gen [address] | | | 2019 | | Oncology | [place] | | | | | | [place] [address] | | +--------+ + + + + [...] + documented in this encounter Visit Diagnoses Not on filedocumented in this encounter"
--- OUTSIDE RECORDS SUMMARY | ~2019-12-27 | XMS | Encounter Summary ---
Demographics + + + | Address | [address] | | | [place] [address] | + + + | Home Phone | | + + + | Preferred Language | Unknown | + + + | Marital Status | | + + + | Bahai Affiliation | LUT | + + + [...] Providers + +------+ + | Care Supervisor Of Way Name | Role | Phone | + +------+ + | Margarita Patterson | PCP | | + +------+ + Reason for Visit + + + | Reason | Comments | + + + | Care Coordination | NURSE NAVIGATION- follow-up assessment/call | + + + Encounter Details +--------+ + + + + | Date | Type | Department | Care Team | Description | +--------+ + + + + | 09/09/ | Telephone | [facility] | Jennifer Raymond, | Care Coordination | | 2020 | | Clinics at S | RN [address] | (NURSE NAVIGATION- | | | | [facility] [address] | follow-up | | | | [facility] for | [place], [place] | assessment/call) | | | | Health and Healing, | [address] | | | | | [facility] [address] | [phone] | | | | | [place], [place] | | | | | | [address] | | | | | | [phone] | | | +--------+ + + + [...] | | | | | | [place] [address] | | | | | | [phone] | | | | | | | | +--------+ + + + + | 01/14/ | Appointment | Hematology & | Onc, Gen [address] | | | 2019 | | Oncology | [place] | | | | | | [place] [address] | | +--------+ + + + + documented as of this encounter Visit Diagnoses Not on filedocumented in this encounter"
--- OUTSIDE RECORDS SUMMARY | ~2019-12-27 | XMS | Encounter Summary ---
Demographics + + + | Address | [address] | | | [place] [address] | + + + | Home Phone | | + + + | Preferred Language | Unknown | + + + | Marital Status | | + + + | Taoist Affiliation | LUT | + + + [...] | + + + + + | Cherlele Silva | ECON | Dag[place], | | + + + + + Care Team Providers + +------+ + | Care Supervisor Sulfuric Acid Plant Name | Role | Phone | + +------+ + | SilverioMargarita crawford WATER TREATMENT SPECIALIST | PCP | | + +------+ + [...] | | | | | | [place] [address] | | | | | | [phone] | | | | | | | | +--------+ + + + + | 01/14/ | Appointment | Hematology & | Onc, Gen [address] | | | 2019 | | Oncology | [place] | | | | | | [place] [address] | | +--------+ + + + + documented as of this encounter Visit Diagnoses Not on filedocumented in this encounter"
--- OUTSIDE RECORDS SUMMARY | ~2019-12-27 | XMS | Encounter Summary ---
Demographics + + + | Address | [address] | | | [place] [address] | + + + | Home Phone [...] Team Providers + +------+ + | Care Quality Assurance Calibrator Name | Role | Phone | + +------+ + | Oz Rodriguez MD | PCP | | + +------+ + Encounter Details +--------+ + + + + | Date | Type | Department | Care Team | Description | +--------+ + + + + | 12/01/ | MyChart | Diagnostic Imaging | | Appointment Reminder | | 2020 | Encounter | Services [address] | | | | | [address] | | | | | | [place], [place] | | | | | | [address] | | | +--------+ + + + [...] | | | | | [place] [facility] | | | | | | [place] [address] | | | | | | [phone] | | | | | | | | +--------+ + + + + | 01/14/ | Appointment | Hematology & | Onc, Gen [address] | | | 2020 | | Oncology | [place] | | | | | | [place] [address] | | +--------+ + + + + documented as of this encounter Visit Diagnoses Not on filedocumented in this encounter"
--- OUTSIDE RECORDS SUMMARY | ~2019-12-27 | XMS | Encounter Summary ---
Demographics + + + | Address | [address] | | | [place] [address] | + + + | Home Phone [...] Team Providers + +------+ + | Care Backhaul Driver Name | Role | Phone | + +------+ + | Oz Rodriguez MD | PCP | | + +------+ + Encounter Details +--------+ + + + + | Date | Type | Department | Care Team | Description | +--------+ + + + + | 11/19/ | Pharmacy | Outpatient Retail | | | | 2019 | Visit | [facility] | | | | | | [address] | | | | | | [place], [place] | | | | | | [address] | | | | | | [phone] | | | +--------+ + + + [...] | | | | | [place], | | | | | | [place] [address] | | | | | | [phone] | | | | | | | | +--------+ + + + + | 01/14/ | Appointment | Hematology & | Onc, Gen [address] | | | 2019 | | Oncology | [place] | | | | | | [place] [address] | | +--------+ + + + + documented as of this encounter Visit Diagnoses Not on filedocumented in this encounter"
--- OUTSIDE RECORDS SUMMARY | ~2019-12-27 | XMS | Encounter Summary ---
Demographics + + + | Address | [address] | | | [place] [address] | + + + | Home Phone | | + + + | Preferred Language | Unknown | + + + | Marital Status | | + + + | Sabianism Affiliation | LUT | + + + [...] Team Providers + +------+ + | Care Lehr Operator Name | Role | Phone | [...] + + | 12/07/ | Telephone | [facility] | Daysi Mccauley MD | Lab Draw | | 2020 | | Clinics at S | [address] [facility] | | | | | [address] [place], | | | | | [facility] | [place] [address] | | | | | Health and Healing, | [phone] | | | | | [address] | | | | | | [place], [place] | | | | | | [address] | | | | | | [phone] | | | +--------+ + + + [...] | | | | | [place], | | | | | | [place] [address] | | | | | | [phone] | | | | | | | | +--------+ + + + + | 01/14/ | Appointment | Hematology & | Onc, Gen [address] | | | 2019 | | Oncology | [place], | | | | | | [place] [address] | | +--------+ + + + + documented as of this encounter Visit Diagnoses Not on filedocumented in this encounter"
--- OUTSIDE RECORDS SUMMARY | ~2019-12-27 | XMS | Encounter Summary ---
Demographics + + + | Address | [address] | | | [place] [address] | + + + | Home Phone [...] Team Providers + +------+ + | Care Merchandising Manager Name | Role | Phone | [...] | AMBULATORY [address] | [address] [facility] | | | | | [address] [facility] | [facility] | | | | | Mailcode: CH6A | [place], [place] | | | | | [place], [place] | [address] | | | | | [address] | | | | | | [phone] | | | +--------+ + + + [...] | | | | | | [place] [address] | | | | | | [phone] | | | | | | | | +--------+ + + + + | 01/14/ | Appointment | Hematology & | Onc, Gen [address] | | | 2019 | | Oncology | [place] | | | | | | [place] [address] | | +--------+ + + + + documented as of this encounter Visit Diagnoses Not on filedocumented in this encounter"
--- OUTSIDE RECORDS SUMMARY | ~2019-12-27 | XMS | Encounter Summary ---
Demographics + + + | Address | [address] | | | [place] [address] | + + + | Home Phone | | + + + | Preferred Language | Unknown | + + + | Marital Status | | + + + | Yazidi Affiliation | LUT | + + + [...] Providers + +------+ + | Care Supervisor Hard Candy Name | Role | Phone | + +------+ + | Margarita Patterson | PCP | | + +------+ + Reason for Visit + + + | Reason | Comments | + + + | New patient | | | consultation | | + + + Encounter Details +--------+ + + + + | Date | Type | Department | Care Team | Description | +--------+ + + + + | 11/18/ | Video/TeleH | [facility] Primary Care | [place], | New patient | | 2020 | ealth-Sched | at [facility] | Cata Felix MD | consultation | | | uled | [address] | [address] | | | | | [address] Phys[address] | [address] [place], | | | | | [address], 3rd floor | [place] [address] | | | | | [place], [place] | [phone] | | | | | [address] | | | | | | [phone] | | | +--------+ + + + [...] documented as of this encounter Progress Notes Cata Ortiz MD - 11/19/2019 1:30 PM PDTFormatting of this note might be differe nt from the original. The visit took place via secure, synchronous audio and video technology with the provider v irtually located at the distant site of [facility]. The patient stated they were located at the [facility] site of mobile and were in the state of [place] at the time of the virtual visit. The n deanna of all additional persons participating in the virtual visit and their roles are: dadestinee Dangelo and Derek. I have spent a total of 107 minutes on this patient's care today. This time includes the v irtual visit fguz-so-uneh time with the patient as well as time spent reviewing patient kelsey rds, coordinating/communicating with care teams and documenting the patient visit. Geriatric Consult Clinic Reason for Referral: Nereyda assessment prior to considering Bone Marrow Transplant for Primar y Myelofibrosis. 1. 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 Saw Dr. Rosado recently to consider allogeneic HSCT. Has high risk disease- 5 year survival only about 7%. His note states "potentially curable" though 5 year survival with transplant is 50% so chance of cure not that good. Would need to spend first 100 days i n [place]. Transplant related mortality 20-30%. Risk of graft failure 2-5%. Risk of GVHD 50 % (15-20% high grade). Physically pretty strong, but has weakened the last 3 months due to d isease, easily fatigues when anemic, trying to go for walks, able to go for about 10 minutes before wanting to rest. Is working up to 30 minutes walking. Not having pain right now, fat bere comes and goes. States that her goal is to live as long as possible for her grandkids. States she would still want a longer life even if she didn't feel well and had to be in the hospital quite a bit of the time. Doesn't know if she still agrees with this if she were dann ck in a [facility]. Knows she would need to spend 100 days in [place] and doesn't like th is- hoping for just 50. Feels that once she "gets through" the bad year of treatment she wou ld be OK again and would live to spend time with her grandchildren. 2. Memory concerns. Slow decline in short term memory, word finding, getting lost mid-sent ence over the last several years per daughter. [facility], Dr. Victor Manuel Mendez aa in May. MOCA . MRI: No acute intracranial abnormality, Mild cerebral volume loss, Mi ld prominence of the lateral and 3rd ventricles which appears somewhat disproportionate to d egree of cortical volume loss which could indicate central predominant cerebral atrophy or, in the proper setting, chronic communicating hydrocephalus (correlate clinically for symptom s of normal pressure hydrocephalus). Feels she has had continued decline since May, wor d recall is what bothers her most. Had to give up paying bills, doing taxes about 6 months a go. 3. Major depression, recurrent-off an on for years, now more anxiety than depression, but l ow mood at times. Always had trouble with big events, trips, overwhelmed with hosting elijah dowd, thanksgiving. Took zoloft last fall which helped her quite a bit cognitively and emoti onally. Her new software educator in [place], Dr. Rodriguez, switched her from zoloft to cymbalta s everal months ago because she was having a lot of bone pain (from the disease). She doesn't notice her mood is any different with the switch. She cries a lot, always appropriately. Cancer diagnosis is very stressful. Geriatric ROS: ADL independent IADL independent prior to ca dx, now needing for shopping, driving, medication assi st, finance assist lives in private home in [place], on [address], yes, but not since diagnosis Hearing- good Vision- good, need readers Mastication/Swallowing- good Nutrition- lost about 20 lbs since July, smaller appetite, dad's doing most of the cook ing now.. incontience-no constipation-no falls-no assistive device-none musculoskeletal, physically pretty strong, but has weakened the last 3 months due to diseas e, easily fatigues when anemic, we've started trying to go for walks, able to go for about 1 0 minutes before wanting to rest. PE: Alert, oriented, extremely pleasant. Walking without concern MOCA performed with assistance of daughter (RN) who is there with her. MOCA 11/19/2019 Trails (1 pt) 0 Cube (1 pt) 0 Clock draw (3 pts) 3 Naming (3 pts) 2 Memory (0 pts) 0 Attention - digits (2 pts) 2 Attention - letters (1 pt) 1 Attention - serial 7 (3 pts) 1 Language - repeat (2 pts) 2 Language - fluency (1 pt) 1 Abstraction (2 pts) 1 Delayed recall (5 pts) 0 Orientation (6 pts) 6 TOTAL SCORE (30 pts) 19 A/P: Delightful 69 year old woman with high risk myelofibrosis currently considering allogeneic HSCT. We discussed this at length today. Her sense is that she would have a tough time getti ng through the next year, but would "come out the other side" and be herself again, and mayb e be cured (though understands 5 year mortality is still only 50%). I discussed with her laura t I suspect this would not be the case. I am most concerned about her cognition, as I think her chance for delirium is nearly 100% with her probable mild Alzheimer dementia. Many peopl e with cognitive impairment and delirium have a much more rapid decline in cognition after t he delirium. I suspect she would have prolonged delirium and would have rapid cognitive decl ine, and may not be able to enjoy her grandchildren even if she lives beyond the 1 year of t reatment. I also worry about her mobility. She is walking fairly well now, but I suspect she would become very deconditioned through the transplant process and would need an extended r ehab period and may not get back to walking again. I suggested that her current quality of life is actually pretty good, and she might have mo re quality days if she optimizes her lifestyle and tries to enjoy herself as much as possibl e now. She can continue active treatment without SCT, and remain at home most of the time ra ther than being in the hospital and having to spend many months in [place]. As her health d eclines, we can bring in home health and then hospice to try to help her remain at home thro ugh her end of life. Fidelia and her family want more time to continue thinking this through. Fidelia had hoped for as long a life as possible, but hadn't realized she might have deficits coming out of the tr ansplant. She agrees that maintaining as high a quality of life for as long as possible now (rather than doing SCT) sounds more like her wishes but she wants to think about this some m ore with her family. I recommended regular exercise at least 30 minutes daily and follow the Mediterranean diet. Daughter can assist with these. I told them I would be happy to talk again if I can be of further assistance. I spent 60 minutes in direct virtual contact with the patient, and daughter today, greater than 50% in counseling. RTC prn. Cata Ortiz MD, MPH Professor, Division of General Internal Medicine & Geriatrics [facility] documented in t his encounter Plan of Treatment +--------+ + + [...] | | | | | [place], | | | | | | [place] [address] | | | | | | [phone] | | | | | | | | +--------+ + + + + | 01/14/ | Appointment | Hematology & | Onc, Gen [address] | | | 2020 | | Oncology | [place] | | | | | | [place] [address] | | +--------+ + + + + documented as of this encounter Visit Diagnoses + + | Diagnosis | + + | Myelofibrosis (HCC) - Primary Myelofibrosis | + + | Recurrent major depressive disorder, in partial remission (HCC) | + + | Advance care planning Other specified counseling | + + | Late onset Alzheimer's disease without behavioral disturbance (HCC) | + + documented in this encounter
--- OUTSIDE RECORDS SUMMARY | ~2019-12-27 | XMS | Encounter Summary ---
Demographics + + + | Address | [address] | | | [place] [address] | + + + | Home Phone [...] Author | [facility] | + + + | Organization | [facility] | + + + | Address | [...] Team Providers + +------+ + | Care Brand Ambassadors Promotional Sales Name | Role | Phone | + +------+ + | Margarita Patterson | PCP | | + +------+ + Encounter Details +--------+ + + + + | Date | Type | Department | Care Team | Description | +--------+ + + + + | 10/16/ | Telephone | [facility] | Daysi Mccauley MD | | | 2019 | | Clinics at S | [address] | | | | | [facility] [place], | | | | | [facility] | [place] [address] | | | | | Health and Healing, | [phone] | | | | | [facility] [address] | | | | | | [place], [place] | | | | | | [address] | | | | | | [phone] | | | +--------+ + + + [...] | | | | | | [place] [address] | | | | | | [phone] | | | | | | | | +--------+ + + + + | 01/14/ | Appointment | Hematology & | Onc, Gen [address] | | | 2019 | | Oncology | [place] | | | | | | [place] [address] | | +--------+ + + + + documented as of this encounter Visit Diagnoses Not on filedocumented in this encounter"
--- OUTSIDE RECORDS SUMMARY | ~2019-12-27 | XMS | Encounter Summary ---
Demographics + + + | Address | [address] | | | [place] [address] | + + + | Home Phone [...] Team Providers + +------+ + | Care Floor Tiling Professional Name | Role | Phone | + +------+ + | Margarita Patterson | PCP | | + +------+ + Encounter Details +--------+ + + + + | Date | Type | Department | Care Team | Description | +--------+ + + + + | 12/11/ | Document-Balbir | [facility] | [address] | | | 2020 | tanja | [facility] | [facility] | | | | | [address] [place], [place] | | | | | [facility] | [address] | | | | | Health and Healing, | | | | | | [address] | | | | | | [place], [place] | | | | | | [address] | | | | | | [phone] | | | +--------+ + + + [...] | | | | | [place], | | | | | | [place] [address] | | | | | | [phone] | | | | | | | | +--------+ + + + + | 01/14/ | Appointment | Hematology & | Onc, Gen [address] | | | 2020 | | Oncology | [place], | | | | | | [place] [address] | | +--------+ + + + + documented as of this encounter Visit Diagnoses Not on filedocumented in this encounter"
--- OUTSIDE RECORDS SUMMARY | ~2019-12-27 | XMS | Encounter Summary ---
Demographics + + + | Address | [address] | | | [place] [address] | + + + | Home Phone [...] Team Providers + +------+ + | Care Facility Environmental Technician Name | Role | Phone | + +------+ + | Oz Rodriguez MD | PCP | | + +------+ + Encounter Details +--------+ + + + + | Date | Type | Department | Care Team | Description | +--------+ + + + + | 12/16/ | Retreader | [facility] | Daysi Mccauley MD | Myelofibrosis (HCC) | | 2020 | | Clinics at S | [address] | (Primary Dx) | | | | [address] | [place], | | | | | [place] | [place] [address] | | | | | Health and Healing, | [phone] | | | | | [address] | | | | | | [place], [place] | | | | | | [address] | | | | | | [phone] | | | +--------+ + + + [...] | | | | | [place]ise [place] [facility] | | | | | | [place] [address] | | | | | | [phone] | | | | | | | | +--------+ + + + + | 01/14/ | Appointment | Hematology & | Onc, Gen [address] | | | 2019 | | Oncology | [place], | | | | | | [place] [address] | | +--------+ + + + + documented as of this encounter Results URIC ACID, PLASMA (12/17/2019 7:56 AM PDT) + +-------+ [...] [facility] | [address] | [place] [address] | | | SERVICES, [facility] | | | | [facility] + [facility] | | | | + + + + + [facility] - BILIRUBIN, DIRECT (12/17/2019 7:56 AM PDT) + +---------+ + [...] + + + + + | [facility] | [address] | [place] [address] | | | [facility] | | | | | HEALTH + HEALING | | | | + + + + + documented in this encounter Visit Diagnoses + + | Diagnosis | + + | Myelofibrosis (HCC) - Primary Myelofibrosis | + + documented in this encounter"
--- OUTSIDE RECORDS SUMMARY | ~2019-12-27 | XMS | Encounter Summary ---
Demographics + + + | Address | [address] | | | [place] [address] | + + + | Home Phone [...] Providers + +------+ + | Care Pump Machine Operator Name | Role | Phone [...] | [address] [place], | | | | | [facility] | [place] [address] | | | | | Health and Healing, | [phone] | | | | | [address] | | | | | | [place], [place] | | | | | | [address] | | | | | | [phone] | | | +--------+ + + + [...] | | | | | [place], | | | | | | [place] [address] | | | | | | [phone] | | | | | | | | +--------+ + + + + | 01/14/ | Appointment | Hematology & | Onc, Gen [address] | | | 2020 | | Oncology | [place], | | | | | | [place] [address] | | +--------+ + + + + documented as of this encounter Visit Diagnoses Not on filedocumented in this encounter"
--- OUTSIDE RECORDS SUMMARY | ~2019-12-27 | XMS | Encounter Summary ---
Demographics + + + | Address | [address] | | | [place] [address] | + + + | Home Phone [...] Team Providers + +------+ + | Care Well Driller Name | Role | Phone | + +------+ + | Margarita Patterson | PCP | | + +------+ + Encounter Details +--------+ + + + + | Date | Type | Department | Care Team | Description | +--------+ + + + + | 12/03/ | Hospital | [facility] | | | | 2020 | Encounter | Clinics at S | | | | | | [address] | | | | | | [facility] | | | | | | Health and Healing, | | | | | | [address] | | | | | | [place], [place] | | | | | | [address] | | | | | | [phone] | | | +--------+ + + + [...] | | | | | | [place] [address] | | | | | | [phone] | | | | | | | | +--------+ + + + + | 01/14/ | Appointment | Hematology & | Onc, Gen [address] | | | 2019 | | Oncology | [place] | | | | | | [place] [address] | | +--------+ + + + + documented as of this encounter Visit Diagnoses Not on filedocumented in this encounter"
--- OUTSIDE RECORDS SUMMARY | ~2019-12-27 | XMS | Encounter Summary ---
Demographics + + + | Address | [address] | | | [place] [address] | + + + | Home Phone [...] Team Providers + +------+ + | Care Millwright Supervisor Name | Role | Phone | + +------+ + | Oz Rodriguez MD | PCP | | + +------+ + Encounter Details +--------+ + + + + | Date | Type | Department | Care Team | Description | +--------+ + + + + | 10/19/ | Pharmacy | Pharmacy @ [facility] | | | | 2019 | Visit | [address] | | | | | | [address] Mailcode: | | | | | | [facility] | | | | | | and [place], | | | | | | [address] | | | | | | [place], [place] | | | | | | [address] | | | +--------+ + + + [...] | | | | | | [place] [address] | | | | | | [phone] | | | | | | | | +--------+ + + + + | 01/14/ | Appointment | Hematology & | Onc, Gen [address] | | | 2019 | | Oncology | [place], | | | | | | [place] [address] | | +--------+ + + + + documented as of this encounter Visit Diagnoses Not on filedocumented in this encounter"
--- OUTSIDE RECORDS SUMMARY | ~2019-12-27 | XMS | Encounter Summary ---
Demographics + + + | Address | [address] | | | [place] [address] | + + + | Home Phone [...] Team Providers + +------+ + | Care Desktop Support Engineer Name | Role | Phone | + +------+ + | SilverioMargarita crawford WORKPLACE REHABILITATION OFFICER | PCP | | + +------+ + Encounter Details +--------+--------+ + + + | Date | Type | Department | Care Team | Description | +--------+--------+ + + + | 08/18/ | Travel | | | | | [...] | | | | | | [place] [address] | | | | | | [phone] | | | | | | | | +--------+ + + + + | 01/14/ | Appointment | Hematology & | Onc, Gen [address] | | | 2019 | | Oncology | [place], | | | | | | [place] [address] | | +--------+ + + + + documented as of this encounter Visit Diagnoses Not on filedocumented in this encounter"
--- OUTSIDE RECORDS SUMMARY | ~2019-12-27 | XMS | Encounter Summary ---
Demographics + + + | Address | [address] | | | [place] [address] | + + + | Home Phone [...] Team Providers + +------+ + | Care Insurance Auditor Name | Role | Phone | + [...] | Hematology | Diagnoses | Parisa, | [employer] | | | | Malignancy | MDS | Daysi Ramires MD | [address] | | | | | (myelodyspla | [address] | | | | | stic | [facility] | [place] for | | | | | syndrome) | Rd | Health and | | | | | (HCC) | [place], [place] | Healing, | | | | | Procedures | [address] | [address] | | | | | CONSULT TO | Phone: | [place], [place] | | | | | TRANSPLANT - | [phone] | [address] | | | | | BMT | Fax: | Phone: | | | | | | [phone] | [phone] | | | | | | | Fax: | | | | | | | [phone] | + +---------+ + + + + Encounter Details +--------+---------+ + + + | Date | Type | Department | Care Team | Description | +--------+---------+ + + + | 09/03/ | Office | [facility] | Daysi Mccauley MD | MDS (myelodysplastic | | 2020 | Visit | Clinics at S | [address] [facility] | syndrome) (HCC) | | | | [facility] [address] [place], | (Primary Dx) | | | | [facility] | [place] [address] | | | | | Health and Healing, | [phone] | | | | | Building 2 | | | | | | [place], [place] | | | | | | [address] | | | | | | [phone] | | | +--------+---------+ + + + [...] lightheadedness and dizziness. You are the best flue blower of how much activity you can engage [...] best way to contact her is through Painting With A Twist. Please note, Kathrine is off on Wednesdays, but there are other members of the Oncology care team who will be available to assist you. Kathrine Sheets, MSN- ict help desk officer/Oncology Nurse Coordinator [facility] [place] | [facility] [place] [address] Clinic: [phone] For further questions or concerns: MyChart: We encourage patients to use Painting With A Twist as the primary mode of communication. Feel fr ee to message us on Painting With A Twist with any questions that may arise. Appointments/Questions/Follow-up: If you have any questions about appointments or need to c all to make a follow up appointment, please call the front office assistant at [phone]. Symptoms/Medical Questions: If you develop any symptoms or have any urgent medical question s, please call the Triage Nurse at [phone] or [phone] (Sunday - Sunday 8:30-4:30). After hours, please call [phone] and ask to have the BMT Person Finishing Room Supervisor pag ed. Feedback: We value and appreciate your opinion and would like to learn from your experience at [facility]. Please complete the surveys that [facility] sends. Thank you! Prescriptions: Please [...] she was seen in the ED in [place], [place] for dyspnea. Fou nd to be pancytopenic including Hgb/HCT of 6.3/18.1 and platelet count at 42. She was transf used two units and discharged home with plan for follow-up and BMBx at [facility]. Subsequently admitted from 08/04-08/08/2019 at [facility] d/t pancytopenia. BMBx performed on [...] with Dr. Sherri chamberlain at [facility]. She had been doing well for [...] Patient is present by herself due to [employer] visitor restrictions. Her and gladis blanchard are [...] 0.60 - 1.10 mg/dL Final EGFR - PAKISTANI 09/04/2019 >60 >60 mL/min Final EGFR NON -PAKISTANI 09/04/2019 >60 >60 mL/min Final SODIUM, PLASMA [...] LEUKOREDUCED IRRADIATED Final PRODUCT UNIT # 09/04/2019 [id number]-* Final UNIT ABO 09/04/2019 A Final UNIT RH 09/04/2019 NEG Final STATUS OF UNIT 09/04/2019 Presumed Transfused Final EXPIRATION DATE 09/04/2019 [id number] Final BLOOD TYPE BARCODE 09/04/2019 0600 Final BLOOD PRODUCT CODE 09/04/2019 [id number] Final ABO Group 09/04/2019 A Final Rh [...] found in m yeloid malignancies such as [id number] are recommended. ECHO Labs, imaging and pathology [...] record ed by Mor Coates. Daysi Mccauley, Smash Hand, Section for Hematologic Malignancies. [facility] [place] documented in this enco unter Plan of [...] | | | | | | [place] [address] | | | | | | [phone] | | | | | | | | +--------+ + + + + | 01/14/ | Appointment | Hematology & | Onc, Gen [address] | | | 2019 | | Oncology | [place] | | | | | | [place] [address] | | +--------+ + + + + documented as of this encounter Visit Diagnoses + + | Diagnosis | + + | MDS (myelodysplastic syndrome) (HCC) - Primary Myelodysplastic syndrome, unspecified | + + documented in this encounter"
--- OUTSIDE RECORDS SUMMARY | ~2019-12-27 | XMS | Encounter Summary ---
Demographics + + + | Address | [address] | | | [place] [address] | + + + | Home Phone | | + + + | Preferred Language | Unknown | + + + | Marital Status | | + + + | Mandaen Affiliation | LUT | + + + | Race | White | + + + | Ethnic Group | Not or | + + + Author + + + | Author | [facility] | + + + | Organization | [facility] | + + + | [...] Team Providers + +------+ + | Care Dehydrating Press Operator Name | Role | Phone | + +------+ + | Margarita Patterson | PCP | | + +------+ + Encounter Details +--------+ + + + + | Date | Type | Department | Care Team | Description | +--------+ + + + + | 08/10/ | Lithoduplicator Operator | [facility] | Valarie Levi, | | | 2019 | | Clinics at | [facility] [address] [facility] | | | | | [facility] [address] | | | | | [facility] for | [place], [place] | | | | | Health and Healing, | [address] | | | | | [address] | [phone] | | | | | [place], [place] | | | | | | [address] | | | | | | [phone] | | | +--------+ + + + [...] | | | | | | [place] [address] | | | | | | [phone] | | | | | | | | +--------+ + + + + | 01/14/ | Appointment | Hematology & | Onc, Gen [address] | | | 2019 | | Oncology | [place], | | | | | | [place] [address] | | +--------+ + + + + documented as of this encounter Visit Diagnoses Not on filedocumented in this encounter"
--- OUTSIDE RECORDS SUMMARY | ~2019-12-27 | XMS | Encounter Summary ---
Demographics + + + | Address | [address] | | | [place] [address] | + + + | Home Phone [...] Team Providers + +------+ + | Care Wildlife Conservationist Name | Role | Phone | + +------+ + | Oz Rodriguez MD | PCP | | + +------+ + Encounter Details +--------+ + + + + | Date | Type | Department | Care Team | Description | +--------+ + + + + | 11/17/ | Pharmacy | [facility] | | | | 2020 | Visit | [address] | | | | | | [address] | | | | | | [place] [address] | | | | | | [phone] | | | +--------+ + + + [...] | | | | | | [place] [address] | | | | | | [phone] | | | | | | | | +--------+ + + + + | 01/14/ | Appointment | Hematology & | Onc, Gen [address] | | | 2019 | | Oncology | [place] | | | | | | [place] [address] | | +--------+ + + + + documented as of this encounter Visit Diagnoses Not on filedocumented in this encounter"
--- OUTSIDE RECORDS SUMMARY | ~2019-12-27 | XMS | Encounter Summary ---
Demographics + + + | Address | [address] | | | [place] [address] | + + + | Home Phone [...] Team Providers + +------+ + | Care Lighting Adviser Name | Role | Phone | + +------+ + | Oz Rodriguez MD | PCP | | + +------+ + Encounter Details +--------+ + + + + | Date | Type | Department | Care Team | Description | +--------+ + + + + | 11/09/ | Procedure | Diagnostic Imaging | | | | 2020 | Pass | Services at [facility] | | | | | | [address] | | | | | | [address] [place] | | | | | | [facility] | | | | | | [place], [place] | | | | | | [address] | | | | | | [phone] | | | +--------+ + + + [...] | | | | | [address], | | | | | | [place] [address] | | | | | | [phone] | | | | | | | | +--------+ + + + + | 01/14/ | Appointment | Hematology & | Onc, Gen [address] | | | 2020 | | Oncology | [place], | | | | | | [place] [address] | | +--------+ + + + + documented as of this encounter Visit Diagnoses Not on filedocumented in this encounter"
--- OUTSIDE RECORDS SUMMARY | ~2019-12-27 | XMS | Encounter Summary ---
Demographics + + + | Address | [address] | | | [place] [address] | + + + | Home Phone | | + + + | Preferred Language | Unknown | + + + | Marital Status | | + + + | Holiness Affiliation | LUT | + + + [...] Team Providers + +------+ + | Care Windows Systems Architect Name | Role | Phone | + +------+ + | Oz Rodriguez MD | PCP | | + +------+ + Encounter Details +--------+ + + + + | Date | Type | Department | Care Team | Description | +--------+ + + + + | 09/15/ | Pharmacy | Pharmacy @ [facility] | | | | 2020 | Visit | [address] | | | | | | [address] Mailcode: | | | | | | [facility] | | | | | | and [address], | | | | | | [address] | | | | | | [place], [place] | | | | | | [address] | | | +--------+ + + + [...] | | | | | [address] [place], | | | | | | [place] [address] | | | | | | [phone] | | | | | | | | +--------+ + + + + | 01/14/ | Appointment | Hematology & | Onc, Gen [address] | | | 2020 | | Oncology | [place], | | | | | | [place] [address] | | +--------+ + + + + documented as of this encounter Visit Diagnoses Not on filedocumented in this encounter"
--- OUTSIDE RECORDS SUMMARY | ~2019-12-27 | XMS | Encounter Summary ---
Demographics + + + | Address | [address] | | | [place] [address] | + + + | Home Phone [...] Team Providers + +------+ + | Care Swedish Masseuse Name | Role | Phone | + [...] Pharmacy | | | | | | [address] | | | | | | [address] [place], [place] | | | | | | [address] | | | | | | [phone] | | | +--------+ + + + [...] | | | | [address] [place], | | | | | | [place] [address] | | | | | | [phone] | | | | | | | | +--------+ + + + + | 01/14/ | Appointment | Hematology & | Onc, Gen [address] | | | 2019 | | Oncology | [place], | | | | | | [place] [address] | | +--------+ + + + + documented as of this encounter Visit Diagnoses Not on filedocumented in this encounter"
--- OUTSIDE RECORDS SUMMARY | ~2019-12-27 | XMS | Encounter Summary ---
Demographics + + + | Address | [address] | | | [place] [address] | + + + | Home Phone [...] Team Providers + +------+ + | Care Reading Intervention Teacher Name | Role | Phone | [...] | +--------+ + + + + | 09/14/ | Telephone | [facility] | Daysi Mccauley MD | Covid19 Screening | | 2019 | | Clinics at | [address] [facility] | | | | | [facility] [address] [place], | | | | | [facility] | [place] [address] | | | | | Health and Healing, | [phone] | | | | | Building [address] | | | | | | [place], [place] | | | | | | [address] | | | | | | [phone] | | | +--------+ + + + [...] | | | | | | [place] [address] | | | | | | [phone] | | | | | | | | +--------+ + + + + | 01/14/ | Appointment | Hematology & | Onc, Gen [address] | | | 2019 | | Oncology | [place] | | | | | | [place] [address] | | +--------+ + + + + documented as of this encounter Visit Diagnoses Not on filedocumented in this encounter"
--- OUTSIDE RECORDS SUMMARY | ~2019-12-27 | XMS | Encounter Summary ---
Demographics + + + | Address | [address] | | | [place] [address] | + + + | Home Phone | | + + + | Preferred Language | Unknown | + + + | Marital Status | | + + + | Sikhism Affiliation | LUT | + + + | Race | White | + + + | Ethnic Group | Not or | + + + Author + + + | Author | [facility] | + + + | Organization | [facility] | + + + | Address [...] Providers + +------+ + | Care Manager Cargo Name | Role | Phone | + +------+ + | Oz Rodriguez MD | PCP | | + +------+ + Encounter Details +--------+ + + + + | Date | Type | Department | Care Team | Description | +--------+ + + + + | 12/02/ | Pharmacy | [facility] | | | | 2020 | Visit | [address] | | | | | | [address] | | | | | | [place] [address] | | | | | | [phone] | | | +--------+ + + + [...] | | | | | | [place] [address] | | | | | | [phone] | | | | | | | | +--------+ + + + + | 01/14/ | Appointment | Hematology & | Onc, Gen [address] | | | 2019 | | Oncology | [place] | | | | | | [place] [address] | | +--------+ + + + + documented as of this encounter Visit Diagnoses Not on filedocumented in this encounter"
--- OUTSIDE RECORDS SUMMARY | ~2019-12-27 | XMS | Encounter Summary ---
Demographics + + + | Address | [address] | | | [place] [address] | + + + | Home Phone [...] Providers + +------+ + | Care Instructional Material Director Name | Role | Phone | [...] | up) | | | | [facility] for | [place], [place] | | | | | Health and Healing, | [address] | | | | | [address] | | | | | | [place], [place] | | | | | | [address] | | | | | | [phone] | | | +--------+ + + + [...] | | | | | | [place] [address] | | | | | | [phone] | | | | | | | | +--------+ + + + + | 01/14/ | Appointment | Hematology & | Onc, Gen [address] | | | 2019 | | Oncology | [place], | | | | | | [place] [address] | | +--------+ + + + + documented as of this encounter Visit Diagnoses Not on filedocumented in this encounter"
--- OUTSIDE RECORDS SUMMARY | ~2019-12-27 | XMS | Encounter Summary ---
Demographics + + + | Address | [address] | | | [place] [address] | + + + | Home Phone [...] Team Providers + +------+ + | Care Hide Curer Name | Role | Phone | + [...] | Encounter | Clinics at S | [facility], | | | | | [facility] [address] | [place] [address] | | | | | [facility] for | | | | | | Health and Healing, | | | | | | [address] | | | | | | [place], [place] | | | | | | [address] | | | | | | [phone] | | | +--------+ + + + [...] was instructed to check out at the [facility] ront desk prior to leaving the clinic. Patient d/c d via wheelchair and accompanied by CUSTOMER SERVICE SUPERVISOR for echo appt in [facility]. Mor Escalera RN documented in this encounte [...] | | | | | | [place] [address] | | | | | | [phone] | | | | | | | | +--------+ + + + + | 01/14/ | Appointment | Hematology & | Onc, Gen [address] | | | 2019 | | Oncology | [place], | | | | | | [place] [address] | | +--------+ + + + + [...] + + documented in this encounter Results [facility] - URINE, MICROSCOPIC (12/17/2019 7:56 AM [...] [facility] | [address] | [place] [address] | | | [facility] [place] [facility] | | | | | HEALTH [...] | | | LABORATORY | | | [facility], | | | [place] [facility] | | | HEALTH + | | | HEALING | + + + + + + + + | Performing | Address | City/State/Zipcode | Phone Number | | Organization | | | | + + + + + | [facility] | [address] | [place] [address] | | | SERVICES, [place] [facility] | | | | | HEALTH [...] [facility] | [address] | [place] [address] | | | SERVICES, CORE | PARK [...] | + + + + + | [facility] | [address] | [place] [address] | | | SERVICES, CORE | SHANNA [...] + + + + | PRODUCT | [id number] | | [facility] | | | UNIT [...] + + + + | EXPIRATION | [id number] | | [facility] | | | DATE [...] + + + + | BLOOD | [id number] | | [facility] | | | PRODUCT [...] + + + + + | [facility] | [address] | [place] [address] | | | SERVICES, | [address] [...] + + + + | PRODUCT | [id number] | | [facility] | | | UNIT [...] + + + + | EXPIRATION | [id number] | | [facility] | | | DATE [...] + + + + | BLOOD | [id number] | | [facility] | | | PRODUCT [...] [facility] | [address] | [place] [address] | | | SERVICES, | [address] [...] [facility] | [address] | [place] [address] | | | SERVICES, | [address] [...] | + + + + + | [facility] | [address] | [place] [address] | | | MEGAN, | SHANNA DE [...] [facility] | [address] | [place] [address] | | | [facility] FOR | | | | [...] LABORATORY | | | | | | [facility], | | | | | | [place] [facility] | | | | | | [...] LABORATORY | [address] | [place] [address] | | | [facility] | | | | | HEALTH [...] LABORATORY | [address] | [place] [address] | | | SERVICES, [place] [facility] | | | | | HEALTH [...] | + + + + + | [facility] | [address] | [place] [address] | | | SERVICES, [place] [facility] | | | | | HEALTH [...] LABORATORY | [address] | [place] [address] | | | SERVICES, [facility] FOR | [...] | | | LABORATORY | | | [place] | | | SERVICES, | | | [...] MDRD equation recommended by the National | [facility] | | Kidney Disease Education Program. Estimated [...] | + + + + + | [facility] | [address] | [place] [address] | | | SERVICES, [place] [facility] | | | | | HEALTH [...]
--- OUTSIDE RECORDS SUMMARY | ~2019-12-27 | XMS | Encounter Summary ---
Demographics + + + | Address | [address] | | | [place] [address] | + + + | Home Phone | | + + + | Preferred Language | Unknown | + + + | Marital Status | | + + + | Religion Affiliation | LUT | + + + | Race | White | + + + | Ethnic Group | Not or | + + + Author + + + | Author | [facility] | + + + | Organization | [facility] | + + + | Address [...] Providers + +------+ + | Care Supervisor Compounding And Finishing Name | Role | Phone | + [...] | antineoplastic | | | | [facility] for | [place] [address] | chemotherapy ; | | | | Health and Healing, | [phone] | Adverse effect of | | | | [address] | | chemotherapy, | | | | [place], [place] | | initial encounter | | | | [address] | | | | | | [phone] | | | +--------+---------+ + + + [...] she was seen in the ED in [place], [place] for dyspnea. Fou nd to be pancytopenic including Hgb/HCT of 6.3/18.1 and platelet count at 42. She was transf used two units and discharged home with plan for follow-up and BMBx at [facility]. Subsequently admitted from 08/04-08/08/2019 at [facility] d/t pancytopenia. BMBx performed on 0. Marrow [...] with Dr. Sherri chamberlain at [facility]. She had been doing well for [...] found in m yeloid malignancies such as [id number] are recommended. 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 Research Consent: I saw Ms. Fidelia Pickett [...] record ed by Mor Coates. Daysi Mccauley, Signal Engineer, Section for Hematologic Malignancies. [facility] documented in this enco unter Plan of [...] | | | | | [address] [place], | | | | | | [place] [address] | | | | | | [phone] | | | | | | | | +--------+ + + + + | 01/14/ | Appointment | Hematology & | Onc, Gen [address] | | | 2019 | | Oncology | [place], | | | | | | [place] [address] | | +--------+ + + + + [...] + + + + | [facility] | [address] | [place] [address] | | | [facility] | | | | | [...] + + + + | [facility] | [address] | [place] [address] | | | SERVICES, [place] [facility] | | | | | HEALTH [...] LABORATORY | [address] | [place] [address] | | | [facility] | | | | | HEALTH [...] LABORATORY | | | | | | [facility], | | | | | | [...] [facility] | [address] | [place] [address] | | | SERVICES, CORE | PARK [...] + + + + | [facility] | [address] | [place] [address] | | | MEGAN, ANY | [address] | | | + + + + + [facility] - MAGNESIUM, PLASMA (12/04/2019 1:42 PM [...] + + + + | [facility] | [address] | [place] [address] | | | SERVICES, CORE | SHANNA [...] [facility] | [address] | [place] [address] | | | SERVICES, CORE | SHANNA [...] | + + + + + | [facility] | [address] | [place] [address] | | | SERVICES, CORE | SHANNA [...] [facility] | [address] | [place] [address] | | | SERVICES, ANY | SHANNA [...] [facility] | [address] | [place] [address] | | | SERVICES, CORE | PARK [...] + + + + | [facility] | [address] | [place] [address] | | | SERVICES, CORE | SHANNA [...] | | | LABORATORY | | | ERITREAN | | | SERVICES, | | | [...] | + + + + + | [facility] | [address] | [place] [address] | | | SERVICES, CORE | SHANNA [...]
--- OUTSIDE RECORDS SUMMARY | ~2019-12-27 | XMS | Encounter Summary ---
Demographics + + + | Address | [address] | | | [place] [address] | + + + | Home Phone | | + + + | Preferred Language | Unknown | + + + | Marital Status | | + + + | Judaism Affiliation | LUT | + + + [...] Team Providers + +------+ + | Care Environmental Maintenance Worker Name | Role | Phone | + +------+ + | Margarita Patterson | PCP | | + +------+ + Encounter Details +--------+---------+ + + + | Date | Type | Department | Care Team | Description | +--------+---------+ + + + | 08/18/ | Office | [facility] | Daysi Mccauley MD | MF (myelofibrosis) | | 2020 | Visit | Clinics at S | [address] | (HCC) (Primary Dx) | | | | [facility] [address] [facility], | | | | | [facility] | [place] [address] | | | | | Health and Healing, | [phone] | | | | | [address] | | | | | | [place], [place] | | | | | | [address] | | | | | | [phone] | | | +--------+---------+ + + + [...] Instructions Patient Instructions Kathrine Sheets, RN - 08/19/2019 11:30 AM PDTIt was a pleasure to see josiane gould in clinic today. 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 We are waiting for your genetic testing to result to make a final diagnosis. We expect this to be back later this week. If it is Primary Myelofibrosis, most of the treatments are oral medications that you can take at home. One medication is called ruxolitinib or Jakafi. While you are taking the medications and we are waiting for them to start working, you w ill continue to need blood transfusion support. Ideally, the medications will ultimately de crease the amount of transfusions you need. There are also some clinical trials that may be available to you, though we need to get the genetic testing back. For standard of care, the best choice is the ruxolitinib The other standard of care opt ions are not great, though we could consider Interferon, which is a weekly injection that ca n be given at home, just like insulin. Most patients tolerate that well and helps patients feel better. These drugs should shrink the spleen, decrease dependence on transfusions, and prolong l aye, but they are not cures. The only potentially curative treatment would be a bone marrow stem cell transplant. We can have the transplant team consult with you so you have all of the potential options for the future. With the ruxolitinib or the study drug, we would want her to have labs checked twice wee kly with transfusions as needed. Eventually, we may be able to space this out to once weekl y, or once to twice monthly. Initially, ruxolitinib causes anemia but the body eventually a djusts and this medication-related anemia resolves. We typically see improvement after 12 w eeks. We do think it would be good to establish with a local oncologist. We agree with stopping the allopurinol, but we do think you need the acyclovir. Your bl ood counts are low enough that you are at high-risk for infection and the acyclovir can help prevent that from happening. We also want you to start an antibiotic (Levaquin or levofloxacin) and an antifungal (fl uconazole). We will send these prescriptions to [facility]. Right now, Dr. Mccauley thinks it's okay to hold the blood pressure medication, but we do think you should continue to monitor your blood pressure regularly and we can adjust as need ed. We need to set you up to get blood counts twice weekly while we're coming up with a elis tment plan for you. We also want an ultrasound of your belly to see if your spleen is enlarged. We think her MF is about a Stage 2 in terms of scarring. We don't know yet if she is lo w, intermediate, or high-risk. We need the spleen ultrasound to determine that. Memory issues are not uncommon when blood counts are low. It makes it worse, so it's po ssible it will get better as get you stabilized. Kathrine Sheets is Dr. Mccauley's Nurse Coordinator. If you have any questions, feel free to con tact her, her contact information is below. The best way to contact her is through [employer]. Please note, Kathrine is off on Wednesdays, but there are other members of the Oncology care team who will be available to assist you. Kathrine Sheets, MSN- guide cruise/Oncology Nurse Coordinator [facility] [place] | [facility] [address] [place] [address] Clinic: [phone] For further questions or concerns: Skip Hophart: We encourage patients to use [employer] as the primary mode of communication. Feel fr ee to message us on [employer] with any questions that may arise. Appointments/Questions/Follow-up: If you have any questions about appointments or need to c all to make a follow up appointment, please call the motel front desk clerk at [phone]. Symptoms/Medical Questions: If you develop any symptoms or have any urgent medical question s, please call the Triage Nurse at [phone] or x [phone] (Sunday - Sunday 8:30-4:30). After hours, please call [phone] and ask to have the BMT Person International Marketing Intern pag ed. Feedback: We value and appreciate your opinion and would like to learn from your experience at [facility]. Please complete the surveys that [facility] sends. Thank you! 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 History of Present Illness: Fidelia Pickett is presenting today for after new likely diagnosis of MF. The patient has a past medical history that includes HTN and hypothyroidism. The patient's hematological hi story dates back to 08/02/2019 where she was seen in the ED in [place], [place] for dyspnea. Fou nd to be pancytopenic including Hgb/HCT of 6.3/18.1 and platelet count at 42. She was transf used two units and discharged home with plan for follow-up and BMBx at [facility]. Subsequently admitted from 08/04-08/08/2019 at [facility] d/t pancytopenia. BMBx performed on 0. [...] of BMBx with Dr. Sherri chamberlain at [facility]/Onc. She had been doing well for the [...] prognosis and need for supportive transfusions. Today: Patient's daughter presents for consultation as patient herself is taking precaution che measures due to COVID-19. We had a FaceTime visit with the patient. Per the patient, she feels well today despite having continued fatigue. Dizziness/lightheadedness has resolved. She has further symptoms including lack of appetite, arthralgias in bilateral hips, and gris ry impairments. Denies weight loss or night sweats. Both patient and her daughter have many questions surrounding her diagnosis, potential treatment options, and consideration of clini cintia trials. Review of Systems Constitutional: Positive for malaise/fatigue. HENT: Negative. Eyes: Negative. Respiratory: Negative. Cardiovascular: Negative. Gastrointestinal: Negative. Genitourinary: Negative. Musculoskeletal: Positive for joint pain. Skin: Negative. Neurological: Negative. Endo/Heme/Allergies: Negative. Psychiatric/Behavioral: Positive for memory loss. Current Medication List Name Sig ACYCLOVIR 800 [...] history: No family history of blood cancers. Social History Socioeconomic History Marital status: Spouse name: Not on file Number of children: Not on file Years of education: Not on file Highest education level: Not on file Occupational History Not on file Social Needs Financial resource strain: Not on file Food insecurity: Worry: Not on file Inability: Not on file Transportation needs: Medical: Not on file Non-medical: Not on file Tobacco Use Smoking status: Never Smoker Smokeless tobacco: Never Used Substance and Sexual Activity Alcohol use: Yes Comment: 3 times a week Drug use: Never Sexual activity: Not on file Lifestyle Physical activity: Days per week: Not on file Minutes per session: Not on file Stress: Not on file Relationships Social connections: Talks on phone: Not on file Gets together: Not on file Attends gnosticist service: Not on file Active member of club or organization: Not on file Attends meetings of clubs or organizations: Not on file Relationship status: Not on file Other Topics Concern Not on file Social History Narrative Not on file PE: No Vital signs were taken as this was a virtual visit. Limited PE per Facetime as noted bel ow. Physical Exam Constitutional: She is oriented to person, place, and time and well-developed, well-nourish ed, and in no distress. No distress. HENT: Head: Normocephalic and atraumatic. Nose: Nose normal. Eyes: Conjunctivae are normal. Pulmonary/Chest: No respiratory distress. Neurological: She is alert and oriented to person, place, and time. Skin: No rash noted. Laboratory BMBX 08/08/2019 13:45 Status: Final result Visible [...] found in m yeloid malignancies such as [id number] are recommended. ECHO Assessment and recommendations Fidelia Pickett is a 69 year old female with a myeloid neoplasm, most consistent with nancy ghanshyam myelofibrosis. Primary myelofibrosis - WHO criteria (need 3 major and 2 or more minor murphy macias): Major: ?Presence of megakaryocyte proliferation and atypia, usually accompanied by reticulin and/o r collagen fibrosis ?Does not have WHO criteria for polycythemia vera (PV), chronic myeloid leukemia (CML), mye lodysplastic syndrome (MDS), or other myeloid neoplasm ?Demonstration of a clonal marker (eg, JAK2, CALR, or MPL); Note: triple negative MF (JAK2 /CALR/MPL negative) disease have poor prognosis (median OS 2 years) and should have other mu tations in genes frequently found in MPN (e.g., TET2 and ASXL1). Minor: ?Leukoerythroblastosis ?Palpable splenomegaly ?Anemia ?Increased serum lactate dehydrogenase level Myelofibrosis following PV or ET - An International Working Group for Myelofibrosis Researc h (need 2 major and 2 or more minor criteria: Major: ?Documentation of a previous diagnosis of either PV or ET as defined by WHO criteria ?Presence of increased bone marrow fibrosis Minor: ?Progressive anemia or loss of phlebotomy requirement ?Leukoerythroblastic blood picture ?Increasing degree of splenomegaly ?Development of constitutional symptoms (ie, weight loss, night sweats, unexplained fever) ?Increased serum lactate dehydrogenase (post-ET myelofibrosis only) DIPSS for survival in primary myelofibrosis (sometimes extrapolated for use in post-ET/PV M F, interpret with caution) Prognostic variable Value 0 1 2 Age, y </=65 >65 WBC, 10e9/L </=25 >25 Hemoglobin, g/dL >/=10 <10 Peripheral blood blasts, % < 1 >/=1 Constitutional symptoms,* No Yes DIPSS indicates Dynamic International Prognostic Scoring System. Constitutional symptoms constitute > 10% weight loss in 12 months, excessive sweats persist ing for more than one month, and/or unexplained fever higher than 37.5C. The risk category is obtained adding up the values of each prognostic variable. Risk catego kamala are defined as: low: 0; intermediate-1: 1 or 2; intermediate-2: 3 or 4; and high: 5 or 6. Median survival was not reached in low-risk patients; it was 14.2 years in intermediate-1, 4 years in intermediate-2, and 1.5 years in high risk In BOLD, I highlight what applies to the patient. -We had a long discussion about this disease, prognosis , symptoms and treatmnet options. W e specifically discussed FDA approved therapies particularly Ruxolitinib for MF-we discussed that it can improve symptoms, spleen size, transfusion dependence and possible overall surv ival.We discussed the risks of this drug with low platelet counts like hers.We discussed laura t we would start cautiously at a low dose of 5 mg PO BID to see how she responds. -We also discussed available clinical trials including the Phase III study of pacritinib vs BSC in MF pts with low platelets which may be an option for her in the future. -We discussed that in order to get a full picture of her disease, we would need to get imag ing of her spleen which she will do with her primary oncologist. -We also discussed resuming prophylactic antimicrobials and [...] record ed by Mor Coates. Daysi Mccauley, Electric Mule Driver, Section for Hematologic Malignancies. [facility] [place] Patient Instructions It was a pleasure to see you in clinic today. 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 We are waiting for your genetic testing to result to make a final diagnosis. We expect this to be back later this week. If it is Primary Myelofibrosis, most of the treatments are oral medications that you can take at home. One medication is called ruxolitinib or Jakafi. While you are taking the medications and we are waiting for them to start working, you w ill continue to need blood transfusion support. Ideally, the medications will ultimately de crease the amount of transfusions you need. There are also some clinical trials that may be available to you, though we need to get the genetic testing back. For standard of care, the best choice is the ruxolitinib The other standard of care opt ions are not great, though we could consider Interferon, which is a weekly injection that ca n be given at home, just like insulin. Most patients tolerate that well and helps patients feel better. These drugs should shrink the spleen, decrease dependence on transfusions, and prolong l aye, but they are not cures. The only potentially curative treatment would be a bone marrow stem cell transplant. We can have the transplant team consult with you so you have all of the potential options for the future. With the ruxolitinib or the study drug, we would want her to have labs checked twice wee kly with transfusions as needed. Eventually, we may be able to space this out to once weekl y, or once to twice monthly. Initially, ruxolitinib causes anemia but the body eventually a djusts and this medication-related anemia resolves. We typically see improvement after 12 w eeks. We do think it would be good to establish with a local oncologist. We agree with stopping the allopurinol, but we do think you need the acyclovir. Your bl ood counts are low enough that you are at high-risk for infection and the acyclovir can help prevent that from happening. We also want you to start an antibiotic (Levaquin or levofloxacin) and an antifungal (fl uconazole). We will send these prescriptions to [facility]. Right now, Dr. Mccauley thinks it's okay to hold the blood pressure medication, but we do think you should continue to monitor your blood pressure regularly and we can adjust as need ed. We need to set you up to get blood counts twice weekly while we're coming up with a elis tment plan for you. We also want an ultrasound of your belly to see if your spleen is enlarged. We think her MF is about a Stage 2 in terms of scarring. We don't know yet if she is lo w, intermediate, or high-risk. We need the spleen ultrasound to determine that. Memory issues are not uncommon when blood counts are low. It makes it worse, so it's po ssible it will get better as get you stabilized. Kathrine Sheets is Dr. Mccauley's Nurse Coordinator. If you have any questions, feel free to con tact her, her contact information is below. The best way to contact her is through [employer]. Please note, Kathrine is off on Wednesdays, but there are other members of the Oncology care team who will be available to assist you. Kathrine Sheets, MSN- guide cruise/Oncology Nurse Coordinator [facility] | [facility]ign[facility] [place] [address] Clinic: [phone] For further questions or concerns: MyChart: We encourage patients to use Skip Hophart as the primary mode of communication. Feel fr ee to message us on [employer] with any questions that may arise. Appointments/Questions/Follow-up: If you have any questions about appointments or need to c all to make a follow up appointment, please call the motel front desk clerk at [phone]. Symptoms/Medical Questions: If you develop any symptoms or have any urgent medical question s, please call the Triage Nurse at [phone] or x [phone] (Sunday - Sunday 8:30-4:30). After hours, please call [phone] and ask to have the BMT Person International Marketing Intern pag ed. Feedback: We value and appreciate your opinion and would like to learn from your experience at [facility]. Please complete the surveys that [facility] sends. Thank you! Prescriptions: Please allow [...] involved in your care. documented in this enco unter Plan of [...] [address] | | | | | | [place] | | | | | | [place] [address] | | | | | | [phone] | | | | | | | | +--------+ + + + + | 01/14/ | Appointment | Hematology & | Onc, Gen [address] | | | 2020 | | Oncology | [place] | | | | | | [place] [address] | | +--------+ + + + + documented as of this encounter Visit Diagnoses + + | Diagnosis | + + | MF (myelofibrosis) (HCC) - Primary Myelofibrosis | + + documented in this encounter"
--- OUTSIDE RECORDS SUMMARY | ~2019-12-27 | XMS | Encounter Summary ---
Demographics + + + | Address | [address] | | | [place] [address] | + + + | Home Phone | | + + + | Preferred Language | Unknown | + + + | Marital Status | | + + + | Sabianism Affiliation | LUT | + + + | Race | White | + + + | Ethnic Group | Not or | + + + Author + + + | Author | [facility] | + + + | Organization | [facility] | + + + | Address [...] Team Providers + +------+ + | Care Industrial Technologist Name | Role | Phone | + +------+ + | Oz Rodriguez MD | PCP | | + +------+ + Encounter Details +--------+ + + + + | Date | Type | Department | Care Team | Description | +--------+ + + + + | 11/09/ | Procedure | Diagnostic Imaging | | | | 2020 | Pass | Services at [facility] | | | | | | [address] | | | | | | [address] | | | | | | [facility] | | | | | | [place], [place] | | | | | | [address] | | | | | | [phone] | | | +--------+ + + + [...] | | | | [address] [place], | | | | | | [place] [address] | | | | | | [phone] | | | | | | | | +--------+ + + + + | 01/14/ | Appointment | Hematology & | Onc, Gen [address] | | | 2020 | | Oncology | [place], | | | | | | [place] [address] | | +--------+ + + + + documented as of this encounter Visit Diagnoses Not on filedocumented in this encounter"
--- OUTSIDE RECORDS SUMMARY | ~2019-12-27 | XMS | Encounter Summary ---
Demographics + + + | Address | [address] | | | [place] [address] | + + + | Home Phone [...] Team Providers + +------+ + | Care Lens Mold Setter Name | Role | Phone | [...] 2019 | | Clinics at | [address] [facility] | | | | | [facility] [address] [place], | | | | | [facility] | [place] [address] | | | | | Health and Healing, | [phone] | | | | | [address] | | | | | | [place], [place] | | | | | | [address] | | | | | | [phone] | | | +--------+ + + + [...] | | | | | | [place] [address] | | | | | | [phone] | | | | | | | | +--------+ + + + + | 01/14/ | Appointment | Hematology & | Onc, Gen [address] | | | 2019 | | Oncology | [place] | | | | | | [place] [address] | | +--------+ + + + + documented as of this encounter Visit Diagnoses Not on filedocumented in this encounter"
--- OUTSIDE RECORDS SUMMARY | ~2019-12-27 | XMS | Encounter Summary ---
Demographics + + + | Address | [address] | | | [place] [address] | + + + | Home Phone [...] Team Providers + +------+ + | Care Barrel And Receiver Aligner Name | Role | Phone | + +------+ + | Margarita Patterson | PCP | | + +------+ + Encounter Details +--------+ + + + + | Date | Type | Department | Care Team | Description | +--------+ + + + + | 11/27/ | Document-Sc | [facility] | Daysi Mccauley MD | | | 2019 | ann | Clinics at S | [address] | | | | | [place] [address] [place], | | | | | [facility] | [place] [address] | | | | | Health and Healing, | [phone] | | | | | [address] | | | | | | [place], [place] | | | | | | [address] | | | | | | [phone] | | | +--------+ + + + [...] | | | | | [address] [place], | | | | | | [place] [address] | | | | | | [phone] | | | | | | | | +--------+ + + + + | 01/14/ | Appointment | Hematology & | Onc, Gen [address] | | | 2020 | | Oncology | [place], | | | | | | [place] [address] | | +--------+ + + + + documented as of this encounter Visit Diagnoses Not on filedocumented in this encounter"
--- OUTSIDE RECORDS SUMMARY | ~2019-12-27 | XMS | Encounter Summary ---
Demographics + + + | Address | [address] | | | [place] [address] | + + + | Home Phone [...] Author | [facility] | + + + | Organization | [facility] | + + + | Address | [...] Providers + +------+ + | Care Industrial Maintenance Mechanic Name | Role | Phone | + [...] + + | 11/06/ | Telephone | [facility] | Sheri Rosado, | Covid19 Screening | | 2020 | | Clinics at S | MD [address] | | | | | [place] [address] | | | | | [facility] for | [place], [place] | | | | | Health and Healing, | [address] | | | | | [facility] [address] | [phone] | | | | | [place], [place] | | | | | | [address] | | | | | | [phone] | | | +--------+ + + + [...] | | | | | | [place] [address] | | | | | | [phone] | | | | | | | | +--------+ + + + + | 01/14/ | Appointment | Hematology & | Onc, Gen [address] | | | 2019 | | Oncology | [place] | | | | | | [place] [address] | | +--------+ + + + + documented as of this encounter Visit Diagnoses Not on filedocumented in this encounter"
--- OUTSIDE RECORDS SUMMARY | ~2019-12-27 | XMS | Encounter Summary ---
Demographics + + + | Address | [address] | | | [place] [address] | + + + | Home Phone [...] Team Providers + +------+ + | Care Straightener Gun Parts Name | Role | Phone | + +------+ + | Oz Rodriguez MD | PCP | | + +------+ + Encounter Details +--------+ + + + + | Date | Type | Department | Care Team | Description | +--------+ + + + + | 09/01/ | Pharmacy | Pharmacy @ [facility] | | | | 2020 | Visit | [address] | | | | | | [address] Mailcode: | | | | | | [facility] | | | | | | [address], | | | | | | [address] | | | | | | [place], [place] | | | | | | [address] | | | +--------+ + + + [...] | | | | | [address] [place], | | | | | | [place] [address] | | | | | | [phone] | | | | | | | | +--------+ + + + + | 01/14/ | Appointment | Hematology & | Onc, Gen [address] | | | 2020 | | Oncology | [place], | | | | | | [place] [address] | | +--------+ + + + + documented as of this encounter Visit Diagnoses Not on filedocumented in this encounter"
--- OUTSIDE RECORDS SUMMARY | ~2019-12-27 | XMS | Encounter Summary ---
Demographics + + + | Address | [address] | | | [place] [address] | + + + | Home Phone [...] Providers + +------+ + | Care Sensor Specialist Name | Role | Phone | [...] Rd | | | | | [facility] for | [place], [place] | | | | | Health and Healing, | [address] | | | | | [facility] 2 | [phone] | | | | | [place], [place] | | | | | | [address] | | | | | | [phone] | | | +--------+ + + + [...] | | | | | | [place] [address] | | | | | | [phone] | | | | | | | | +--------+ + + + + | 01/14/ | Appointment | Hematology & | Onc, Gen [address] | | | 2019 | | Oncology | [place], | | | | | | [place] [address] | | +--------+ + + + + documented as of this encounter Visit Diagnoses Not on filedocumented in this encounter"
--- OUTSIDE RECORDS SUMMARY | ~2019-12-27 | XMS | Encounter Summary ---
Demographics + + + | Address | [address] | | | [place] [address] | + + + | Home Phone | | + + + | Preferred Language | Unknown | + + + | Marital Status | | + + + | Temple Affiliation | LUT | + + + [...] Team Providers + +------+ + | Care Puddler Pile Driving Name | Role | Phone | + +------+ + | Margarita Patterson | PCP | | + +------+ + Encounter Details +--------+ + + + + | Date | Type | Department | Care Team | Description | +--------+ + + + + | 10/16/ | Telephone | [facility] | Daysi Mccauley MD | | | 2019 | | Clinics at S | [address] | | | | | [address] [place], | | | | | [facility] | [place] [address] | | | | | Health and Healing, | [phone] | | | | | [facility] 2 | | | | | | [place], [place] | | | | | | [address] | | | | | | [phone] | | | +--------+ + + + [...] | | | | | | [place] [address] | | | | | | [phone] | | | | | | | | +--------+ + + + + | 01/14/ | Appointment | Hematology & | Onc, Gen [address] | | | 2019 | | Oncology | [place] | | | | | | [place] [address] | | +--------+ + + + + documented as of this encounter Visit Diagnoses Not on filedocumented in this encounter"
--- OUTSIDE RECORDS SUMMARY | ~2019-12-27 | XMS | Encounter Summary ---
Demographics + + + | Address | [address] | | | [place] [address] | + + + | Home Phone | | + + + | Preferred Language | Unknown | + + + | Marital Status | | + + + | Orthodoxy Affiliation | LUT | + + + | Race | White | + + + | Ethnic Group | Not or | + + + Author + + + | Author | [facility] | + + + | Organization | [facility] | + + + | [...] Team Providers + +------+ + | Care Sales Outfitter Name | Role | Phone | + [...] + + | 12/22/ | Documentati | [facility] | Daysi Mccauley MD | Research | | 2020 | on | Clinics at S | [address] [facility] | Documentation | | | | [place] [address] [place], | | | | | [facility] | [place] [address] | | | | | Health and Healing, | [phone] | | | | | Building [address] | | | | | | [place], [place] | | | | | | [address] | | | | | | [phone] | | | +--------+ + + + [...] | | | | | | [place] [address] | | | | | | [phone] | | | | | | | | +--------+ + + + + | 01/14/ | Appointment | Hematology & | Onc, Gen [address] | | | 2019 | | Oncology | [place], | | | | | | [place] [address] | | +--------+ + + + + documented as of this encounter Visit Diagnoses Not on filedocumented in this encounter"
--- OUTSIDE RECORDS SUMMARY | ~2019-12-27 | XMS | Encounter Summary ---
Demographics + + + | Address | [address] | | | [place] [address] | + + + | Home Phone | | + + + | Preferred Language | Unknown | + + + | Marital Status | | + + + | Lutheran Affiliation | LUT | + + + [...] Team Providers + +------+ + | Care Corporate Travel Consultant Name | Role | Phone | [...] | | Clinics at | [address] | | | | | [facility] [address] | | | | | [facility] for | [place], [place] | | | | | Health and Healing, | [address] | | | | | [facility] 2 | [phone] | | | | | [place], [place] | | | | | | [address] | | | | | | [phone] | | | +--------+ + + + [...] | | | | | | [place] [address] | | | | | | [phone] | | | | | | | | +--------+ + + + + | 01/14/ | Appointment | Hematology & | Onc, Gen [address] | | | 2019 | | Oncology | [place] | | | | | | [place] [address] | | +--------+ + + + + documented as of this encounter Visit Diagnoses Not on filedocumented in this encounter"
--- OUTSIDE RECORDS SUMMARY | ~2019-12-27 | XMS | Encounter Summary ---
Demographics + + + | Address | [address] | | | [place] [address] | + + + | Home Phone [...] Team Providers + +------+ + | Care Train Engineer Name | Role | Phone | + +------+ + | Oz Rodriguez MD | PCP | | + +------+ + Reason for Referral Consultation (Urgent) + +--------+ + + + + | Status | Reason | Specialty | Diagnoses / | Referred By | Referred To | | | | | Procedures | Contact | Contact | + +--------+ + + + + | Authorized | | | Diagnoses | Parisa, | | | | | | MDS | Daysi Ramires MD | Rosalio | | | | | (myelodyspla | [address] [facility] | Isaac Cheung MD | | | | | stic | [address] | [address] | | | | | syndrome) | Rd | Gaston Lindsay | | | | | (HCC) | [facility], [place] | [place], [place] | | | | | Procedures | [address] | [address] | | | | | CONSULT TO | Phone: | Phone: | | | | | HEMATOLOGY / | [phone] | [phone] | | | | | ONCOLOGY | Fax: | Fax: | | | | | | [phone] | [phone] | + +--------+ + + + + Encounter Details +--------+ + + + + | Date | Type | Department | Care Team | Description | +--------+ + + + + | 08/19/ | MyChart | [facility] | Daysi Mccauley MD | RE: new medications | | 2020 | Encounter | Clinics at S | [address] | | | | | [place] [address] | [address] [place], | | | | | [facility] | [place] [address] | | | | | Health and Healing, | [phone] | | | | | [facility] 2 | | | | | | [place], [place] | | | | | | [address] | | | | | | [phone] | | | +--------+ + + + [...] | | | | | [place], | | | | | | [place] [address] | | | | | | [phone] | | | | | | | | +--------+ + + + + | 01/14/ | Appointment | Hematology & | Onc, Gen [address] | | | 2020 | | Oncology | [place], | | | | | | [place] [address] | | +--------+ + + + + documented as of this encounter Visit Diagnoses + + | Diagnosis | + + | MDS (myelodysplastic syndrome) (HCC) - Primary Myelodysplastic syndrome, unspecified | + + documented in this encounter"
--- OUTSIDE RECORDS SUMMARY | ~2019-12-27 | XMS | Encounter Summary ---
Demographics + + + | Address | [address] | | | [place] [address] | + + + | Home Phone [...] Team Providers + +------+ + | Care Cabin Outfitter Name | Role | Phone | + +------+ + | Oz Rodriguez MD | PCP | | + +------+ + Encounter Details +--------+ + + + + | Date | Type | Department | Care Team | Description | +--------+ + + + + | 08/10/ | Mysql Dba | [facility] | Sheri Rosado, | MDS (myelodysplastic | | 2020 | | Clinics at S | MD [address] | syndrome) (HCC) | | | | [place] [address] | (Primary Dx) | | | | [facility] for | [place], [place] | | | | | Health and Healing, | [address] | | | | | [address] | [phone] | | | | | [place], [place] | | | | | | [address] | | | | | | [phone] | | | +--------+ + + + [...] | | | | | | [place] [address] | | | | | | [phone] | | | | | | | | +--------+ + + + + | 01/14/ | Appointment | Hematology & | Onc, Gen [address] | | | 2019 | | Oncology | [place] | | | | | | [place] [address] | | +--------+ + + + + [...] | + + + + + | [facility] | [address] | [place] [address] | | | SERVICES, CORE | [address] [...] [facility] | [address] | [place] [address] | | | SERVICES, CORE | [address] | | | + + + + + documented in this encounter Visit Diagnoses + + | Diagnosis | + + | MDS (myelodysplastic syndrome) (HCC) - Primary Myelodysplastic syndrome, unspecified | + + documented in this encounter"
--- OUTSIDE RECORDS SUMMARY | ~2019-12-27 | XMS | Encounter Summary ---
Demographics + + + | Address | [address] | | | [place] [address] | + + + | Home Phone [...] Team Providers + +------+ + | Care Winter Intern Name | Role | Phone | + +------+ + | Oz Rodriguez MD | PCP | | + +------+ + Encounter Details +--------+ + + + + | Date | Type | Department | Care Team | Description | +--------+ + + + + | 12/16/ | Orders Only | [facility] | Daysi Mccauley MD | Myelofibrosis (HCC) | | 2020 | | Clinics at S | [address] | | | | | [place] [address] [place], | | | | | [facility] | [place] [address] | | | | | Health and Healing, | [phone] | | | | | Building [address] | | | | | | [place], [place] | | | | | | [address] | | | | | | [phone] | | | +--------+ + + + [...] | | | | | [address] [place], | | | | | | [place] [address] | | | | | | [phone] | | | | | | | | +--------+ + + + + | 01/14/ | Appointment | Hematology & | Onc, Gen [address] | | | 2019 | | Oncology | [place], | | | | | | [place] [address] | | +--------+ + + + + [...] + + documented in this encounter Results [facility] - BILIRUBIN, DIRECT (12/17/2019 7:56 AM [...] + +---------+ + + + | [facility] | No Hemo | | [...] + | [facility] | [address] | [place] [address] | | | SERVICES, CENTER FOR | | | | | HEALTH + HEALING | | | | + + + + + URIC ACID, PLASMA (12/17/2019 7:56 AM PDT) [...] [facility] | [address] | [place] [address] | | | [facility] | | | | | HEALTH + HEALING | | | | + + + + + documented in this encounter Visit Diagnoses + + | Diagnosis | + + | Myelofibrosis (HCC) Myelofibrosis | + + documented in this encounter"
--- OUTSIDE RECORDS SUMMARY | ~2019-12-27 | XMS | Encounter Summary ---
Demographics + + + | Address | [address] | | | [place] [address] | + + + | Home Phone [...] Providers + +------+ + | Care Document Imaging Manager Name | Role | Phone | + +------+ + | SilverioMargarita crawford RECEIVING SPECIALIST | PCP | | + +------+ [...] | | | | | | [place] [address] | | | | | | [phone] | | | | | | | | +--------+ + + + + | 01/14/ | Appointment | Hematology & | Onc, Gen [address] | | | 2019 | | Oncology | [place] | | | | | | [place] [address] | | +--------+ + + + + documented as of this encounter Visit Diagnoses Not on filedocumented in this encounter"
--- OUTSIDE RECORDS SUMMARY | ~2019-12-27 | XMS | Encounter Summary ---
Demographics + + + | Address | [address] | | | [place] [address] | + + + | Home Phone [...] Team Providers + +------+ + | Care Grinder Hand Name | Role | Phone | + +------+ + | Margarita Patterson | PCP | | + +------+ + Encounter Details +--------+ + + + + | Date | Type | Department | Care Team | Description | +--------+ + + + + | 11/05/ | Video/TeleH | [facility] | Daysi Mccauley MD | | | 2019 | ealth-Sched | Clinics at S | [address] | | | | uled | [address] [place], | | | | | [facility] | [place] [address] | | | | | Health and Healing, | [phone] | | | | | Building 2 | | | | | | [place], [place] | | | | | | [address] | | | | | | [phone] | | | +--------+ + + + [...] this encounter Patient Instructions Patient Instructions Kathrine Sheets RN - 11/06/2019 11:30 AM PDTIt was a pleasure to see josiane gould in clinic today. These are the things that were discussed during your appointment today: The study is for patients with myelofibrosis and low platelet counts. The goal of the study is to see if the medication pacritinib is as effective as the Jaka fi, without the negative effect of the low platelets. Before starting the study, we would have to do a few screening tests to make sure you ar e eligble for the study and you are safe to take the medication. One thing we need to do is an MRI of your spleen. This will occur sometime after 11/27. We think we would have you come here on either 12/01 or 12/03 to consent for the study and complete screening. We would anticipate you starting the trial drug, if you are eligible, about two weeks af ter that, on 12/14. This is a randomized-controlled trial so you would either be in the study arm, where you receive the investigational medication, or you would receive the standard of care medicatio n, which is Jakafi. We aren't able to transition her to a different arm, if she does get put in the standard -of-care arm. One aspect of the trial is that you can only take the Jakafi for 90 days. We will proba kiki need you to start holding the Jakafi beginning 11/26. Then we will screen you and you wo uld start the medication again on 12/14. We may need to give you a shot to boost your white blood cells, but we will review all o f your labs and make that decision when we get closer to the time to consent you. There may also be some other medications that need to be stopped prior to the study, but again, we'll discuss that closer to the time. Kathrine Sheets is Dr. Mccauley's Nurse Coordinator. If you have any questions, feel free to con tact her, her contact information is below. The best way to contact her is through Ninua. Please note, Kathrine is off on Wednesdays, but there are other members of the Oncology care team who will be available to assist you. Please call the clinic at [phone] for leigh ko. Kathrine Sheets, MSN-business writer/Oncology Nurse Coordinator [facility] | [facility] [address] [place] [address] Clinic: [phone] For further questions or concerns: MyChart: We encourage patients to use Ondangot as the primary mode of communication. Feel fr ee to message us on Ninua with any questions that may arise. Please note that Ninua me ssages are not monitored on evenings, weekends, or holidays. If you have urgent symptoms or questions during those times, please call [phone] and ask to have the BMT Person On Ca ll paged. Sunday through Sunday from 8:00 am to 5:00 pm, if you have urgent questions or sy mptoms, please call our flosser for immediate assistance at [phone] or ext. [phone] Appointments/Questions/Follow-up: If you have any questions about appointments or need to c all to make a follow up appointment, please call the senior front end developer at [phone]. Symptoms/Medical Questions: If you develop any symptoms or have any urgent medical question s, please call the Triage Nurse at [phone] or [phone] (Sunday - Sunday 8:30-4:30). After hours, please call [phone] and ask to have the BMT Person Regulator Operator pag ed. Feedback: We value and appreciate your opinion and would like to learn from your experience at [facility]. Please complete the surveys that [facility] sends. Thank you! Prescriptions: Please allow 48-72 [...] encounter Progress Notes Daysi Mccauley MD - 11/06/2019 11:30 AM PDT The visit took place via secure, synchronous audio and video technology with the provider kelly aldana located at the distant site of [facility]. The patient stated they were located at the or iginating site of home and were in the state of [place] at the time of the virtual visit. [facility] of all additional persons participating in the virtual visit and their roles are: and daughter . I have spent a total of 26 minutes on this patient's care today. This time includes the vir tual visit [id number] time with the patient as well as time spent reviewing patient record s, coordinating/communicating with care teams and documenting the patient visit. Myelofibrosis Follow Up Visit: Fidelia Pickett is [...] she was seen in the ED in [place], [place] for dyspnea. Fou nd to be pancytopenic including Hgb/HCT of 6.3/18.1 and platelet count at 42. She was transf used two units and discharged home with plan for follow-up and BMBx at [facility]. Subsequently admitted from 08/04-08/08/2019 at [facility] d/t pancytopenia. BMBx performed on 0. Marrow [...] of BMBx with Dr. Sherri chamberlain at [facility]/Onc. She had been doing well for [...] need for supportive transfusions. Today: Patient presents today via virtual visit. Patient reports she felt significantly win ded yesterday and her memory is worsening everyday. Her last transfusion was 10/23 and she re ceived platelets and 1u pRBCs. Currently tolerating Rux without complication. Her arthralgia s continue to be well-controlled for the last couple of months. Review of Systems Constitutional: Positive for malaise/fatigue. HENT: Negative. Eyes: Negative. Respiratory: Positive for shortness of breath. Cardiovascular: Negative. Gastrointestinal: Negative. Genitourinary: Negative. Musculoskeletal: [...] history: No family history of blood cancers. There were no vitals filed for this visit. PE: Not perfromed due to virtual nature of visit. Laboratory CBC 10/06/2019 CBC 10/02/2019 BMBX 08/08/2019 13:45 Status: Final result Visible [...] found in m yeloid malignancies such as [id number] are recommended. Labs, imaging and pathology discussed with pt and family. Assessment and recommendations 1. 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 Per her -Fidelia feels a lot better, her joint pains a re better as is her energy. Per pt her thinking/memory is till poor though from her family's perspective sh eis much improved. -We also discussed available clinical trials including the Phase III study of pacritinib vs BSC in MF pts with low platelets which may be an option for her in the future. -She continues on prophylactic antimicrobials and supportive transfusions infection and sym ptom control. -All of patient's and family members questions were answered. -We discussed that to be eligibl efo rthe study she would have to stop the Rux on 11/26 for a 14 day washout, she would also need to stop some of her concomitant medications for the sa me reason-we will discuss this in more detail during the week of November 23. Dr. Santamaria started her on an antifungal, 10/06/2019-voriconazole, she continues to dillan ate the low dose Rux well. Will RTC when we have clinical trial active and ready for enrollm ent . We also discussed that we would have her see the transplant team to discuss the role o f allogeneic stem cell transplant for this disease. RTC in 4 -8weeks. I am Mor Coates functioning as a scribe for Daysi Mccauley MD at 10:47 AM on 11/06/2019 I have reviewed and verified the above scribed note of my visit with this patient as record ed by Mor Coates. Daysi Mccauley, Form Setter [employer] Forms, [facility]. [facility] documented in this enco unter Plan [...] | | | | | | [place] [address] | | | | | | [phone] | | | | | | | | +--------+ + + + + | 01/14/ | Appointment | Hematology & | Onc, Gen [address] | | | 2019 | | Oncology | [place], | | | | | | [place] [address] | | +--------+ + + + + documented as of this encounter Visit Diagnoses + + | Diagnosis | + + | MF (myelofibrosis) (HCC) - Primary Myelofibrosis | + + documented in this encounter"
--- OUTSIDE RECORDS SUMMARY | ~2019-12-27 | XMS | Encounter Summary ---
Demographics + + + | Address | [address] | | | [place] [address] | + + + | Home Phone [...] Team Providers + +------+ + | Care Coke Oven Patcher Name | Role | Phone | + [...] + + | 11/24/ | Telephone | [facility] | Daysi Mccauley MD | Research | | 2020 | | Clinics at S | [address] [facility] | Documentation | | | | [place] [place], | | | | | [facility] | [place] [address] | | | | | Health and Healing, | [phone] | | | | | [address] | | | | | | [place], [place] | | | | | | [address] | | | | | | [phone] | | | +--------+ + + + [...] | | | | | | [place] [address] | | | | | | [phone] | | | | | | | | +--------+ + + + + | 01/14/ | Appointment | Hematology & | Onc, Gen [address] | | | 2019 | | Oncology | [place], | | | | | | [place] [address] | | +--------+ + + + + documented as of this encounter Visit Diagnoses Not on filedocumented in this encounter"
--- OUTSIDE RECORDS SUMMARY | ~2019-12-27 | XMS | Encounter Summary ---
Demographics + + + | Address | [address] | | | [place] [address] | + + + | Home Phone [...] Team Providers + +------+ + | Care Pricing Strategist Name | Role | Phone | + +------+ + | SilverioMargarita crawford LINUX ADMIN ENGINEER | PCP | | + +------+ [...] | | | | | | [place] [address] | | | | | | [phone] | | | | | | | | +--------+ + + + + | 01/14/ | Appointment | Hematology & | Onc, Gen [address] | | | 2019 | | Oncology | [place] | | | | | | [place] [address] | | +--------+ + + + + documented as of this encounter Visit Diagnoses Not on filedocumented in this encounter"
--- OUTSIDE RECORDS SUMMARY | ~2019-12-27 | XMS | Encounter Summary ---
Demographics + + + | Address | [address] | | | [place] [address] | + + + | Home Phone | | + + + | Preferred Language | Unknown | + + + | Marital Status | | + + + | Christian Affiliation | LUT | + + + | Race | White | + + + | Ethnic Group | Not or | + + + Author + + + | Author | [facility] | + + + | Organization | [facility] | + + + | Address [...] Team Providers + +------+ + | Care Sugar Cane Farm Manager Name | Role | Phone | [...] | [facility] [address] [place], | | | | | [facility] | [place] [address] | | | | | Health and Healing, | [phone] | | | | | Building [address] | | | | | | [place], [place] | | | | | | [address] | | | | | | [phone] | | | +--------+---------+ + + + [...] best way to contact her is through SVXR. Please note, Kathrine is off on Sunday, but there are other members of the Oncology [facility] who will be available to assist you. Please call the clinic at [phone] for assistanc eKrystle Krishna BUYER GRAIN Hematology/Oncology Nurse Coordinator [facility] [address] | Center for Hematologic Malignancies [facility] [place] [address] Clinic: [phone] For further questions or concerns: Ramenhart: We encourage patients to use Convoke Systemst as the primary mode of communication. Feel fr ee to message us on SVXR with any questions that may arise. Please note that Ram[place]art me ssages are not monitored on evenings, weekends, or holidays. If you have urgent symptoms or questions during those times, please call [phone] and ask to have the BMT Person On Ca ll paged. Sunday through Sunday from 8:00 am to 5:00 pm, if you have urgent questions or sy mptoms, please call our printer technician for immediate assistance at [phone] or [phone]. [phone] Appointments/Questions/Follow-up: If you have any questions about appointments or need to c all to make a follow up appointment, please call the front sight attacher at [phone]. Symptoms/Medical Questions: If you develop any symptoms or have any urgent medical question s, please call the Triage Nurse at [phone] or [phone] (Sunday - Sunday 8:30-4:30). After hours, please call [phone] and ask to have the BMT Person Oil Well Fishing Tool Operator pag ed. Feedback: We value and appreciate your opinion and would like to learn from your experience at [facility]. Please complete the surveys that [facility] sends. Thank you! Prescriptions: Please allow 48-72 [...] she was seen in the ED in [place], [place] for dyspnea. Fou nd to be pancytopenic including Hgb/HCT of 6.3/18.1 and platelet count at 42. She was transf used two units and discharged home with plan for follow-up and BMBx at [facility]. Subsequently admitted from 08/04-08/08/2019 at [facility] d/t pancytopenia. BMBx performed on 0. Marrow [...] of BMBx with Dr. Sherri chamberlain at [facility] Heme/Onc. She had been doing [...] Myelofibrosis, or Post-Essential Thrombocyt hemia Myelofibrosis" eIRB# [id number] Today: Patient presents to infusion today independently. [...] found in m yeloid malignancies such as [id number] are recommended. Imaging MRI Abdomen W/O Contrast [...] Myelofibrosis, or Post-Essential T hrombocythemia Myelofibrosis" eIRB# [id number]. -On 12/04/2019, Ms. Fidelia Pickett consented to discussed CTI PAC-203 "A Phase 2/3 Study of Pa critinib in Patients with Primary Myelofibrosis, Post Polycythemia Vera Myelofibrosis, or Po st-Essential Thrombocythemia Myelofibrosis" eIRB# [id number] -Today she feels well , has some [...] record ed by Mor Coates. Daysi Mccauley, Rn Recruitment, Section for Hematologic Malignancies. [facility] documented in this enco unter Plan [...] | | | | | | [place] [address] | | | | | | [phone] | | | | | | | | +--------+ + + + + | 01/14/ | Appointment | Hematology & | Onc, Gen [address] | | | 2019 | | Oncology | [place] | | | | | | [place] [address] | | +--------+ + + + + documented as of this encounter Visit Diagnoses + + | Diagnosis | + + | Myelofibrosis (HCC) - Primary Myelofibrosis | + + documented in this encounter
--- OUTSIDE RECORDS SUMMARY | ~2019-12-27 | XMS | Encounter Summary ---
Demographics + + + | Address | [address] | | | [place] [address] | + + + | Home Phone [...] Team Providers + +------+ + | Care Upper Caser Name | Role | Phone | + [...] | [facility] [address] [place], | | | | | [facility] | [place] [address] | | | | | Health and Healing, | [phone] | | | | | [facility] 2 | | | | | | [place], [place] | | | | | | [address] | | | | | | [phone] | | | +--------+ + + + [...] | | | | | | [place] [address] | | | | | | [phone] | | | | | | | | +--------+ + + + + | 01/14/ | Appointment | Hematology & | Onc, Gen [address] | | | 2019 | | Oncology | [place], | | | | | | [place] [address] | | +--------+ + + + + documented as of this encounter Visit Diagnoses Not on filedocumented in this encounter"
--- OUTSIDE RECORDS SUMMARY | ~2019-12-27 | XMS | Encounter Summary ---
Demographics + + + | Address | [address] | | | [place] [address] | + + + | Home Phone [...] Team Providers + +------+ + | Care Continuing Education Dean Name | Role | Phone | + +------+ + | Oz Rodriguez MD | PCP | | + +------+ + Encounter Details +--------+ + + + + | Date | Type | Department | Care Team | Description | +--------+ + + + + | 08/26/ | Pharmacy | Pharmacy @ [facility] | | | | 2019 | Visit | [address] | | | | | | [address] Mailcode: | | | | | | [facility] | | | | | | and [place], | | | | | | Building 2 | | | | | | [place], [place] | | | | | | [address] | | | +--------+ + + + [...] | | | | | [address], | | | | | | [place] [address] | | | | | | [phone] | | | | | | | | +--------+ + + + + | 01/14/ | Appointment | Hematology & | Onc, Gen [address] | | | 2020 | | Oncology | [address] [place], | | | | | | [place] [address] | | +--------+ + + + + documented as of this encounter Visit Diagnoses Not on filedocumented in this encounter"
--- OUTSIDE RECORDS SUMMARY | ~2019-12-27 | XMS | Encounter Summary ---
Demographics + + + | Address | [address] | | | [place] [address] | + + + | Home Phone [...] Providers + +------+ + | Care Merchandising Consultant Name | Role | Phone | [...] | 12/16/ | Clinical | Laboratory at [facility] | | Lab Draw ([facility]) | | 2020 | Support | [address] | | | | | Staff | [facility] | | | | | | and Healing, | | | | | | Building [address] | | | | | | [place], [place] | | | | | | [address] | | | | | | [phone] | | | +--------+ + + + [...] | | | | | [address]anna [address] [place], | | | | | | [place] [address] | | | | | | [phone] | | | | | | | | +--------+ + + + + | 01/14/ | Appointment | Hematology & | Onc, Gen [address] | | | 2019 | | Oncology | [place], | | | | | | [place] [address] | | +--------+ + + + + [...] + + + + + | [facility] | [address] | [place] [address] | | | [facility] [place] [facility] | | | | | HEALTH [...] LABORATORY | [address] | [place] [address] | | | SERVICES, [place] [facility] | | | | | HEALTH [...] | + + + + + | [facility] | [address] | [place] [address] | | | SERVICES, [place] [facility] | | | | | HEALTH [...] [facility] | [address] | [place] [address] | | | SERVICES, | [address] [...] | | | LABORATORY | | | [facility], | | | [place] [facility] | | | HEALTH + | | | HEALING | + + + + + + + + | Performing | Address | City/State/Zipcode | Phone Number | | Organization | | | | + + + + + | [facility] | [address] | [place] [address] | | | [facility] | | | | | [...] LABORATORY | [address] | [place] [address] | | | SERVICES, [facility] | | | | | HEALTH [...] [facility] | [address] | [place] [address] | | | SERVICES, CENTER FOR | [...] [facility] | [address] | [place] [address] | | | [facility] [...] | | | | | been | [facility], | | | | | established | [...] 5-6 weeks | | | 850 - 19406 6-7 weeks | | | 4000 - 177936 7-12 weeks | | | 95480 - 620455 12-16 weeks | | | 55307 - 548023 16-29 | | | weeks 1400 - 57289 | | | 29-41 weeks 940 - 86485 | | | This test has not been approved for use as a tumor marker in | | | males or females. | | + + + + + + + + | Performing | Address | City/State/Zipcode | Phone Number | | Organization | | | | + + + + + | [facility] | [address] | [place] [address] | | | SERVICES, CORE | [address] [...] + + + + + | [facility] | [address] | [place] [address] | | | SERVICES, [facility] | [address] | | | + + + + + HEMOGLOBIN A1C, BLOOD (12/17/2019 7:56 AM PDT) + + + + + + | Component | Value | Ref Range | Performed | Pathologist | | | | | At | Signature | + + + + + + | HEMOGLOBIN | 7.0 (H)Comment: Hgb A1C | <5.7 % | [facility] | | | A1C | Interpretive [...] [facility] | [address] | [place] [address] | | | SERVICES, SPECIAL | [address] [...] | | | LABORATORY | | | SCOTTISH | | | SERVICES, | | | [...] MDRD equation recommended by the National | [facility] | | Kidney Disease Education Program. Estimated [...] + + + + + | [facility] | [address] | [place] [address] | | | SERVICES, [facility] | | | | | HEALTH [...] | + + + + + | [facility] | [address] | [place] [address] | | | [facility] | | | | | [...]
--- OUTSIDE RECORDS SUMMARY | ~2019-12-27 | XMS | Encounter Summary ---
Demographics + + + | Address | [address] | | | [place] [address] | + + + | Home Phone [...] Team Providers + +------+ + | Care Junior Designer Name | Role | Phone | [...] + + | 09/08/ | Hospital | [facility] | | | | 2020 | Encounter | Clinics at S | | | | | | [facility] [address] | | | | | | [facility] for | | | | | | Health and Healing, | | | | | | [address] | | | | | | [place], [place] | | | | | | [address] | | | | | | [phone] | | | +--------+ + + + [...] | | | | | | [place] [address] | | | | | | [phone] | | | | | | | | +--------+ + + + + | 01/14/ | Appointment | Hematology & | Onc, Gen [address] | | | 2020 | | Oncology | [place] | | | | | | [place] [address] | | +--------+ + + + + [...] DIFF | Routin | 09/09/2019 | Pancytopenia ([facility]) | Results for this | | [...] [facility] | [address] | [place] [address] | | | SERVICES, [place] [facility] | | | | | HEALTH [...] are included in the neutrophil count. | [facility] | | | HEALTH + | | | HEALING | + + + + + + + + | Performing | Address | City/State/Zipcode | Phone Number | | Organization | | | | + + + + + | [facility] | [address] | [place] [address] | | | [facility] | | | | | HEALTH + [...] | + + + + + | [facility] | [address] | [place] [address] | | | SERVICES, [facility] [facility] | | | | | HEALTH [...] | | | | | | CENTER [facility] | | | | | | [...] LABORATORY | [address] | [place] [address] | | | [facility], [facility] | | | | | HEALTH [...] LABORATORY | | | | | | [facility], | | | | | | [facility] | | | | | | [...] | + + + + + | [facility] | [address] | [place] [address] | | | SERVICES, [facility] | | | | | HEALTH [...] [facility] | [address] | [place] [address] | | | SERVICES, | [address] [...] MDRD equation recommended by the National | [facility] | | Kidney Disease Education Program. Estimated [...] [facility] | [address] | [place] [address] | | | SERVICES, [facility] [facility] | | | | | HEALTH + HEALING | | | | + + + + + documented in this encounter Visit Diagnoses + + | Diagnosis | + + | Pancytopenia (HCC) - Primary Other pancytopenia | + + documented in this encounter
--- OUTSIDE RECORDS SUMMARY | ~2019-12-27 | XMS | Encounter Summary ---
Demographics + + + | Address | [address] | | | [place] [address] | + + + | Home Phone [...] Team Providers + +------+ + | Care Emergency Dept Tech Name | Role | Phone | + +------+ + | Margarita Patterson | PCP | | + +------+ + Encounter Details +--------+ + + + + | Date | Type | Department | Care Team | Description | +--------+ + + + + | 08/10/ | Roofer Assistant | [facility] | Valarie Levi, | | | 2019 | | Clinics at | [facility] [address] [facility] | | | | | [facility] [address] | | | | | [facility] for | [place], [place] | | | | | Health and Healing, | [address] | | | | | Building [address] | [phone] | | | | | [place], [place] | | | | | | [address] | | | | | | [phone] | | | +--------+ + + + [...] | | | | | | [place] [address] | | | | | | [phone] | | | | | | | | +--------+ + + + + | 01/14/ | Appointment | Hematology & | Onc, Gen [address] | | | 2019 | | Oncology | [place], | | | | | | [place] [address] | | +--------+ + + + + documented as of this encounter Visit Diagnoses Not on filedocumented in this encounter"
--- OUTSIDE RECORDS SUMMARY | ~2019-12-27 | XMS | Encounter Summary ---
Demographics + + + | Address | [address] | | | [place] [address] | + + + | Home Phone [...] Team Providers + +------+ + | Care Radiosonde Operator Name | Role | Phone | + +------+ + | Oz Rodriguez MD | PCP | | + +------+ + Reason for Visit + + + | Reason | Comments | + + + | Medication Questions | fluconazole | + + + | Other | leg thigh pain | + + + Encounter Details +--------+--------+ + + + | Date | Type | Department | Care Team | Description | +--------+--------+ + + + | 08/20/ | Refill | [facility] | Daysi Mccauley MD | Medication Questions | | 2020 | | Clinics at S | [address] | (fluconazole); | | | | [facility] [address] [place], | Other (leg thigh | | | | [facility] | [place] [address] | pain) | | | | Health and Healing, | [phone] | | | | | Building [address] | | | | | | [place], [place] | | | | | | [address] | | | | | | [phone] | | | +--------+--------+ + + + [...] | | | | | | [place] [address] | | | | | | [phone] | | | | | | | | +--------+ + + + + | 01/14/ | Appointment | Hematology & | Onc, Gen [address] | | | 2019 | | Oncology | [place] | | | | | | [place] [address] | | +--------+ + + + + documented as of this encounter Visit Diagnoses Not on filedocumented in this encounter"
--- OUTSIDE RECORDS SUMMARY | ~2019-12-27 | XMS | Encounter Summary ---
Demographics + + + | Address | [address] | | | [place] [address] | + + + | Home Phone [...] Team Providers + +------+ + | Care Training Analyst Name | Role | Phone | [...] + + | 08/25/ | Hospital | [facility] | | | | 2020 | Encounter | Clinics at S | | | | | | [facility] [address] | | | | | | [facility] for | | | | | | Health and Healing, | | | | | | Building [address] | | | | | | [place], [place] | | | | | | [address] | | | | | | [phone] | | | +--------+ + + + [...] [facility] If you have a temp >100.4 F, [...] to speak with our triage nurse or economic historian doctor and consi shazia going to urgent [...] | | | | | [place] [place], | | | | | | [place] [address] | | | | | | [phone] | | | | | | | | +--------+ + + + + | 01/14/ | Appointment | Hematology & | Onc, Gen [address] | | | 2020 | | Oncology | [place], | | | | | | [place] [address] | | +--------+ + + + + [...] + + + + | PRODUCT | [id number] | | [facility] | | | UNIT [...] + + + + | EXPIRATION | [id number] | | [facility] | | | DATE [...] + + + + | BLOOD | [id number] | | [facility] | | | PRODUCT [...] | + + + + + | [facility] | [address] | [place] [address] | | | SERVICES, | [address] [...] + + + + | PRODUCT | [id number] | | [facility] | | | UNIT [...] + + + + | EXPIRATION | [id number] | | [facility] | | | DATE [...] + + + + | BLOOD | [id number] | | [facility] | | | PRODUCT [...] | + + + + + | [facility] | [address] | [place] [address] | | | SERVICES, | [address] [...] | + + + + + | [facility] | [address] | [place] [address] | | | SERVICES, [place] FOR | | | | | [...] in the neutrophil count. | [facility] | | | HEALTH + | | | HEALING | + + + + + + + + | Performing | Address | City/State/Zipcode | Phone Number | | Organization | | | | + + + + + | [facility] | [address] | [place] [address] | | | [facility] | | | | | [...] [facility] | [address] | [place] [address] | | | SERVICES, | [address] [...] | + + + + + | [facility] [facility] | [address] | [place] [address] | | | SERVICES, | [address] [...] | + + + + + | [facility] | [address] | [place] [address] | | | SERVICES, [place] FOR | | | | | [...] [facility] | [address] | [place] [address] | | | SERVICES, CENTER FOR | [...] SERVICES, | | | | | | [facility] | | | | | | [...] LABORATORY | [address] | [place] [address] | | | SERVICES, [facility] | | | | | HEALTH [...] | + + + + + | [facility] | [address] | [place] [address] | | | SERVICES, | [address] [...] | | | LABORATORY | | | [place] | | | SERVICES, | | | [...] MDRD equation recommended by the National | [facility] | | Kidney Disease Education Program. Estimated [...] [facility] | [address] | [place] [address] | | | [facility] | | | | | [...]
--- OUTSIDE RECORDS SUMMARY | ~2019-12-27 | XMS | Encounter Summary ---
Demographics + + + | Address | [address] | | | [place] [address] | + + + | Home Phone | | + + + | Preferred Language | Unknown | + + + | Marital Status | | + + + | Episcopalian Affiliation | LUT | + + + [...] Team Providers + +------+ + | Care Audio Recording Engineer Name | Role | Phone | + +------+ + | Margarita Patterson | PCP | | + +------+ + Reason for Visit + + + | Reason | Comments | + + + | Screening | COVID-19 24 Hr Screening | + + + Encounter Details +--------+ + + + + | Date | Type | Department | Care Team | Description | +--------+ + + + + | 09/07/ | Telephone | [facility] | Daysi Mccauley MD | Screening (COVID-19 | | 2020 | | Clinics at S | [address] [facility] | 24 Hr Screening) | | | | [facility] [address] | [address] [place], | | | | | [facility] | [place] [address] | | | | | Health and Healing, | [phone] | | | | | [facility] 2 | | | | | | [place], [place] | | | | | | [address] | | | | | | [phone] | | | +--------+ + + + [...] | | | | | | [place] [address] | | | | | | [phone] | | | | | | | | +--------+ + + + + | 01/14/ | Appointment | Hematology & | Onc, Gen [address] | | | 2019 | | Oncology | [place] | | | | | | [place] [address] | | +--------+ + + + + documented as of this encounter Visit Diagnoses Not on filedocumented in this encounter"
--- OUTSIDE RECORDS SUMMARY | ~2019-12-27 | XMS | Encounter Summary ---
Demographics + + + | Address | [address] | | | [place] [address] | + + + | Home Phone | | + + + | Preferred Language | Unknown | + + + | Marital Status | | + + + | Jehovah'S Witness Affiliation | Unknown | + + + | Race | Unknown | + + + | Ethnic Group | Unknown | + + + Author + + + | Author | [facility] | | | and Demetri[place]ana | + + + | Organization | [facility] | | | [...] Team Providers + +------+ + | Care Operations Scheduler Name | Role | Phone | + +------+ + | Margarita Patterson | PCP | | | GUITAR TECHNICIAN | | | + +------+ + Reason for Referral Diagnostic/Screening (Routine) +--------+--------+ + + + + | Status | Reason | Specialty | Diagnoses / | Referred By | Referred To | | | | | Procedures | Contact | Contact | +--------+--------+ + + + + | Closed | | Radiology | Diagnoses | Monique | [facility] | | | | | Memory loss | MD Victor Manuel | [facility] | | | | | Procedures | [address] | MEDICAL | | | | | MRI Brain | [facility] [address]ENTER [address] | | | | | wo [address] | [address] | | | | | | D | [place] | | | | | | [place], | [address] | | | | | | [place] [address] | Phone: | | | | | | Phone: | [phone] | | | | | | [phone] | Fax: | | | | | | Fax: | [phone] | | | | | | [phone] | | +--------+--------+ + + + + Reason for Visit Diagnostic/Screening (Routine) +--------+--------+ + + + + | Status | Reason | Specialty | Diagnoses / | Referred By | Referred To | | | | | Procedures | Contact | Contact | +--------+--------+ + + + + | Closed | | Radiology | Diagnoses | [place], | [facility] | | | | | Memory loss | MD Victor Manuel | REGIONAL | | | | | Procedures | [address] | MEDICAL | | | | | MRI Brain | [facility] | [place] [address] | | | | | wo Contrast | [address] | [address] | | | | | | D | [facility] [place] | | | | | | [place], | [address] | | | | | | [place] [address] | Phone: | | | | | | Phone: | [phone] | | | | | | [phone] | Fax: | | | | | | Fax: | [phone] | | | | | | [phone] | | +--------+--------+ + + + + Encounter Details +--------+ + + + + | Date | Type | Department | Care Team | Description | +--------+ + + + + | 06/12/ | Hospital | [facility] | Victor Manuel Amaya, | Memory loss | | 2020 | Encounter | [facility] MRI [address] | | | | [address] | | | | | [place], [place] | [place] [address] | | | | | [address] | [phone] | | | | | [phone] | | | +--------+ + + + [...] + +---------+ + + | | Take by mouth | | 0 | 09/04/19 | | | losartan-hydrochloro | daily. | | | 18 | | | thiazide (HYZAAR) | | | | | | | 100-25 MG per tablet | | | | | | + + + +---------+ + + | sertraline | Take 50 mg by mouth | | 0 | 04/18/20 | | | (ZOLOFT) 50 mg | Daily. | | | 19 | | | tablet | | | | | | + + + +---------+ + + | SYNTHROID 25 MCG | Take 25 mcg by mouth | | 0 | 09/04/19 | | | tablet | daily. | | | 18 | | + + + +---------+ + + documented as of this encounter Plan of Treatment Not on filedocumented as of this encounter Procedures + +--------+ + + + | Procedure Name | Priori | Date/Time | Associated Diagnosis | Comments | | | ty | | | | + +--------+ + + + | MRI BRAIN WO | Routin | 06/12/2019 | Memory loss | Results for this | | CONTRAST | e | 12:47 PM | | procedure are in the | | | | PST | | results section. | + +--------+ + + + documented in this encounter Results MRI Brain wo Contrast (06/12/2019 12:47 PM PST) + + | Specimen | + + | | + + + + + | Impressions | Performed At | + + + | 1. No acute intracranial abnormality. 2. Mild cerebral volume loss. | [facility] | | 3. Mild prominence of the lateral and 3rd ventricles which appears | | | somewhat disproportionate to degree of cortical volume loss which | | | could indicate central predominant cerebral atrophy or, in the proper | | | setting, chronic communicating hydrocephalus (correlate clinically | | | for symptoms of normal pressure hydrocephalus). Signed by: | | | Joesph Montejo Ryan Sign Date/Time: 06/12/2019 2:17 PM | | + + + + + + | Narrative | Performed At | + + + | MRI BRAIN WITHOUT CONTRAST CLINICAL INFORMATION: Memory Loss | [facility] | | COMPARISON: None PROCEDURE: Sagittal T1, axial FLAIR, axial | | | T2, axial T1, axial gradient susceptibility, coronal T2, axial DWI. | | | FINDINGS: Brain: No intracranial hemorrhage. No midline shift or | | | pathologic mass effect. No cerebral edema, restricted diffusion, or | | | evidence of acute infarct. There are a few punctate T2/FLAIR | | | hyperintensities in the cerebral white matter, within expected for | | | patient's age. Mild cerebral volume loss. Ventricles and | | | extra-axial fluid spaces: Mild prominence of the lateral 3rd | | | ventricles which is slightly disproportionate degree of cortical | | | volume loss. No extra-axial fluid collection. Sella, suprasellar | | | cistern, and orbits: Normal. Major vascular flow voids: Normal. | | | Calvarium and extracranial soft tissues: Normal. Paranasal | | | sinuses and mastoid air cells: Small bilateral mastoid effusions. | | | Mild paranasal sinus mucosal thickening. | | + + + + + | Procedure Note | + + | Salvatore, Rad Results In 06/12/2019 2:21 PM PST | | MRI BRAIN WITHOUT CONTRAST | | | | CLINICAL INFORMATION: | | Memory Loss | | | | COMPARISON: | | None | | | | PROCEDURE: | | Sagittal T1, axial FLAIR, axial T2, axial T1, axial gradient | | susceptibility, coronal T2, axial DWI. | | | | FINDINGS: | | Brain: No intracranial hemorrhage. No midline shift or pathologic mass | | effect. No cerebral edema, restricted diffusion, or evidence of acute | | infarct. There are a few punctate T2/FLAIR hyperintensities in the | | cerebral white matter, within expected for patient's age. Mild | | cerebral volume loss. | | | | Ventricles and extra-axial fluid spaces: Mild prominence of the lateral | | 3rd ventricles which is slightly disproportionate degree of cortical | | volume loss. No extra-axial fluid collection. | | | | Sella, suprasellar cistern, and orbits: Normal. | | | | Major vascular flow voids: Normal. | | | | Calvarium and extracranial soft tissues: Normal. | | | | Paranasal sinuses and mastoid air cells: Small bilateral mastoid | | effusions. Mild paranasal sinus mucosal thickening. | | | | IMPRESSION: | | 1. No acute intracranial abnormality. | | 2. Mild cerebral volume loss. | | 3. Mild prominence of the lateral and 3rd ventricles which appears | | somewhat disproportionate to degree of cortical volume loss which could | | indicate central predominant cerebral atrophy or, in the proper | | setting, chronic communicating hydrocephalus (correlate clinically for | | symptoms of normal pressure hydrocephalus). | | | | | | | | Signed by: Joesph Montejo Ryan | | Sign Date/Time: 06/12/2019 2:17 PM | + + + +---------+ + + | Performing | Address | City/State/Zipcode | Phone Number | | Organization | | | | + +---------+ + + | [facility] | | | | + +---------+ + + documented in this encounter Visit Diagnoses + + | Diagnosis | + + | Memory loss | + + documented in this encounter"
--- OUTSIDE RECORDS SUMMARY | ~2019-12-27 | XMS | Encounter Summary ---
Demographics + + + | Address | [address] | | | [place] [address] | + + + | Home Phone [...] Team Providers + +------+ + | Care Estate Agent Name | Role | Phone | + +------+ + | SilverioMargarita crawford FLORAL DESIGNER SALESPERSON | PCP | | + +------+ + [...] | | | | | | [place] [address] | | | | | | [phone] | | | | | | | | +--------+ + + + + | 01/14/ | Appointment | Hematology & | Onc, [address] | | | 2019 | | Oncology | [place] | | | | | | [place] [address] | | +--------+ + + + + documented as of this encounter Visit Diagnoses Not on filedocumented in this encounter"
--- OUTSIDE RECORDS SUMMARY | ~2019-12-27 | XMS | Encounter Summary ---
Demographics + + + | Address | [address] | | | [place] [address] | + + + | Home Phone [...] + + + | Author | [facility] | + + + | Organization | [facility] | + + + | [...] Team Providers + +------+ + | Care Mailroom Coordinator Name | Role | Phone | + +------+ + | Margarita Patterson | PCP | | + +------+ + Encounter Details +--------+ + + + + | Date | Type | Department | Care Team | Description | +--------+ + + + + | 11/11/ | Hospital | [facility] | | | | 2020 | Encounter | PROGRAM [id number] | | | | [address] | | | | | | [place], [place] | | | | | | [address] | | | +--------+ + + + [...] | | | | | | [place] [address] | | | | | | [phone] | | | | | | | | +--------+ + + + + | 01/14/ | Appointment | Hematology & | Onc, Gen [address] | | | 2019 | | Oncology | [place] | | | | | | [place] [address] | | +--------+ + + + + documented as of this encounter Visit Diagnoses Not on filedocumented in this encounter"
--- OUTSIDE RECORDS SUMMARY | ~2019-12-27 | XMS | Encounter Summary ---
Demographics + + + | Address | [address] | | | [place] [address] | + + + | Home Phone [...] Team Providers + +------+ + | Care Camp Coordinator Name | Role | Phone | [...] | | 2020 | Encounter | Services [address] | | | | [address] | | | | | | [place], [place] | | | | | | [address] | | | +--------+ + + + [...] | | | | | [address] [place], | | | | | | [place] [address] | | | | | | [phone] | | | | | | | | +--------+ + + + + | 01/14/ | Appointment | Hematology & | Onc, [address] | | | 2019 | | Oncology | [place] | | | | | | [place] [address] | | +--------+ + + + + documented as of this encounter Visit Diagnoses Not on filedocumented in this encounter"
--- OUTSIDE RECORDS SUMMARY | ~2019-12-27 | XMS | Encounter Summary ---
Demographics + + + | Address | [address] | | | [place] [address] | + + + | Home Phone [...] Team Providers + +------+ + | Care Apiculturist Name | Role | Phone | + [...] Pharmacy | | | | | | [address] | | | | | | [place], [place] | | | | | | [address] | | | | | | [phone] | | | +--------+ + + + [...] | | | | | [address] | | | | | | [place] [address] | | | | | | [phone] | | | | | | | | +--------+ + + + + | 01/14/ | Appointment | Hematology & | Onc, [address] | | | 2019 | | Oncology | [place] | | | | | | [place] [address] | | +--------+ + + + + documented as of this encounter Visit Diagnoses Not on filedocumented in this encounter"
--- OUTSIDE RECORDS SUMMARY | ~2019-12-27 | XMS | Encounter Summary ---
Demographics + + + | Address | [address] | | | [place] [address] | + + + | Home Phone [...] Team Providers + +------+ + | Care Hall Monitor Name | Role | Phone | + [...] | [facility] | [address] [facility] | Refill Request | | | | [facility] [address] [place], | | | | | [facility] | [place] [address] | | | | | [facility], | [phone] | | | | | [facility] | | | | | | [place], [place] | | | | | | [address] | | | | | | [phone] | | | +--------+--------+ + + + [...] | | | | | | [place] [address] | | | | | | [phone] | | | | | | | | +--------+ + + + + | 01/14/ | Appointment | Hematology & | Onc, [address] | | | 2019 | | Oncology | [place], | | | | | | [place] [address] | | +--------+ + + + + documented as of this encounter Visit Diagnoses Not on filedocumented in this encounter"
--- OUTSIDE RECORDS SUMMARY | ~2019-12-27 | XMS | Encounter Summary ---
Demographics + + + | Address | [address] | | | [place] [address] | + + + | Home Phone | | + + + | Preferred Language | Unknown | + + + | Marital Status | | + + + | Cheondoism Affiliation | Unknown | + + + | Race | Unknown | + + + | Ethnic Group | Unknown | + + + Author + + + | Author | [facility] | | | and [place] | + + + | Organization | [facility] | | | and [...] Team Providers + +------+ + | Care Hedis Nurse Name | Role | Phone | + +------+ + | No, Physician | PCP | Unavailable | + +------+ + Encounter Details +--------+ + + + + | Date | Type | Department | Care Team | Description | +--------+ + + + + | 09/26/ | Orders Only | [facility] | Conversion | | | 2017 | | CONVERSION [address]P [address] | Transaction, | | | | | [address] | Provider Unknown | | | | | [place] | | | | | | [address] | (Fax) | | | | | [phone] | | | +--------+ + + + [...]
--- OUTSIDE RECORDS SUMMARY | ~2019-12-27 | XMS | Encounter Summary ---
Demographics + + + | Address | [address] | | | [place] [address] | + + + | Home Phone [...] Team Providers + +------+ + | Care Brick Cleaner Name | Role | Phone | + +------+ + | SilverioMargarita crawford BOARD LAYER | PCP | | + +------+ + [...] | | | | | | [place] [address] | | | | | | [phone] | | | | | | | | +--------+ + + + + | 01/14/ | Appointment | Hematology & | Onc, [address] | | | 2019 | | Oncology | [place] | | | | | | [place] [address] | | +--------+ + + + + documented as of this encounter Visit Diagnoses Not on filedocumented in this encounter"
--- OUTSIDE RECORDS SUMMARY | ~2019-12-27 | XMS | Encounter Summary ---
Demographics + + + | Address | [address] | | | [place] [address] | + + + | Home Phone [...] Team Providers + +------+ + | Care Customer Equipment Engineer Name | Role | Phone | + +------+ + | Oz Rodriguez MD | PCP | | + +------+ + Encounter Details +--------+ + + + + | Date | Type | Department | Care Team | Description | +--------+ + + + + | 08/07/ | Pharmacy | Specialty Pharmacy | | | | 2019 | Visit | Services [address] | | | | [address] | | | | | | [place], [place] | | | | | | [address] | | | | | | [phone] | | | +--------+ + + + [...] | | | | | [address] [place] [place], | | | | | | [place] [address] | | | | | | [phone] | | | | | | | | +--------+ + + + + | 01/14/ | Appointment | Hematology & | Onc, [address] | | | 2019 | | Oncology | [place], | | | | | | [place] [address] | | +--------+ + + + + documented as of this encounter Visit Diagnoses Not on filedocumented in this encounter"
--- OUTSIDE RECORDS SUMMARY | ~2019-12-27 | XMS | Encounter Summary ---
Demographics + + + | Address | [address] | | | [place] [address] | + + + | Home Phone [...] Team Providers + +------+ + | Care Gaming Cage Cashier Name | Role | Phone | + [...] [facility] | Documentation | | | | [facility] [address] [place], | | | | | [facility] | [place] [address] | | | | | [facility], | [phone] | | | | | [address] | | | | | | [place], [place] | | | | | | [address] | | | | | | [phone] | | | +--------+ + + + [...] | | | | | | [place] [address] | | | | | | [phone] | | | | | | | | +--------+ + + + + | 01/14/ | Appointment | Hematology & | Onc, Gen [address] | | | 2020 | | Oncology | [place] | | | | | | [place] [address] | | +--------+ + + + + documented as of this encounter Visit Diagnoses Not on filedocumented in this encounter"
--- OUTSIDE RECORDS SUMMARY | ~2019-12-27 | XMS | Encounter Summary ---
Demographics + + + | Address | [address] | | | [place] [address] | + + + | Home Phone | | + + + | Preferred Language | Unknown | + + + | Marital Status | | + + + | Zoroastrianism Affiliation | Unknown | + + + | Race | Unknown | + + + | Ethnic Group | Unknown | + + + Author + + + | Author | [facility] | | | and Demetriusana | + + + | Organization | [facility] | | | [...] Team Providers + +------+ + | Care Ingredient Handler Name | Role | Phone | + +------+ + | Margarita Patterson | PCP | | | CONSULTING PSYCHIATRIST | | | + +------+ + Reason [...] | | | | | D | [place] [address] | | | | | | [place], | [address] | | | | | | [place] [address] | Phone: | | | | | | Phone: | [phone] | | | | | | [phone] | Fax: | | | | | | Fax: | [phone] | | | | | | [phone] | | +--------+--------+ + + + + Reason for Visit Evaluate & Treat (Routine) +--------+--------+ + + + + | Status | Reason | Specialty | Diagnoses / | Referred By | Referred To | | | | | Procedures | Contact | Contact | +--------+--------+ + + + + | Closed | | | Diagnoses | | Tammaa, | | | | | Unspecified | Yesenia, | MD Victor Manuel | | | | | dementia | Margarita | [address] | | | | | without | [address] | [address] | | | | | behavioral | [address] | D | | | | | disturbance | [address] | [place] | | | | | | [place], | [address] | | | | | | [place] [address] | Phone: | | | | | | Phone: | [phone] | | | | | | [phone] | Fax: | | | | | | Fax: | [phone] | | | | | | [phone] | | +--------+--------+ + + + + Encounter Details +--------+---------+ + + + | Date | Type | Department | Care Team | Description | +--------+---------+ + + + | 05/12/ | Office | [facility] | Victor Manuel Amaya, | Memory loss (Primary | | 2019 | Visit | NEUROLOGY [address] | MD [address] | Dx); Mood disorder | | | | [address] | [address] | ([facility]); Exercise | | | | [place] | [place] [address] | counseling | | | | [address] | [phone] | | | | | [phone] | | | +--------+---------+ + + + [...] + + + documented in this encounter Patient Instructions Patient Instructions Eliana Thomas, City Carrier Assistant - 05/12/2019 9:15 AM PSTImaging I nformation Your provider has ordered an US, MRI, CT/CTA, PET of your brain *Please let us know if you are claustrophobic BEFORE your imaging appointment so the approp riate medication can be ordered* Depending on your insurance it may take several days for them to approve this order. Please allow 3 business days before contacting [facility] department, they will be able to let you know if your testing has been approved or denied. To schedule your appointment or if you have question about your insurance authorization or please call documented in this encounter Progress Notes Victor Manuel Amaya MD - 05/12/2019 9:15 AM PSTFormatting of this note might be different fro m the original. Subjective: Patient ID: Fidelia Pickett is a 69 y.o. female. HPI Dear Margarita Patterson NP. Thank you for asking us to participate in your patient's care. As you know, Fidelia Pickett is a 69 y.o. right handed female who presents today for evaluati on of cognitive impairment. New vitis. Previous neurologist: None. - Onset, context and course: 2017; none; progressive. 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 No problem with using tools , equipments, appliance. No problem with driving. No hallucination. Symptoms are moderate to affect her life. - Duration: Constant. - Frequency and last one: Daily. - Associated symptoms: No gait difficulty, or incontinence and sleep is ok at this time ( Zoloft). - Aggravating factors: Stress. - Alleviating factors: None. Depression / anxiety. - Previous record/diagnosis and treatment: None. Current Outpatient Medications: losartan-hydrochlorothiazide (HYZAAR) 100-25 MG per tablet, Take by mouth daily., Dis p: , Rfl: sertraline (ZOLOFT) 50 mg tablet, Take 50 mg by mouth Daily., Disp: , Rfl: SYNTHROID 25 MCG tablet, Take 25 mcg by mouth daily., Disp: , Rfl: Past Medical History: Diagnosis Date Cognitive impairment FHx: Father and sisters with cognitive impairment. Mother with h/o dystonia. Social History Socioeconomic History Marital status: Spouse [...] Substance and Sexual Activity Alcohol use: Yes Drug use: Never Comment: Drug use: No Sexual activity: Not on file Lifestyle Physical activity: Days per week: Not on file Minutes per session: Not on file Stress: Not on file Relationships Social connections: Talks on phone: Not on file Gets together: Not on file Attends latter day service: Not on file Active member of club or organization: Not on file Attends meetings of clubs or organizations: Not on file Relationship status: Not on file Intimate partner violence: Fear of current or ex partner: Not on file Emotionally abused: Not on file Physically abused: Not on file Forced sexual activity: Not on file Other Topics Concern Not on file Social History Narrative Not on file Past medical history, family history and social history were reviewed and updated as jayce bolton. Review of Systems The patient reports memory loss, decreased concentration and anxiety. All other system were reviewed and are negative. Objective: BP 154/81 | Pulse 60 | Ht 1.702 m (5' 7") | Wt 108 kg (238 lb) | LMP (LMP Unknown) | SpO2 98% | No | BMI 37.28 kg/m Physical Exam Vitals: Vitals: 05/12/19 0908 BP: 154/81 Pulse: 60 PainSc: 0 - No pain General: Well developed, in no acute distress Neck: Supple, unable to appreciate bruits. Heart: S1, S2, no murmur. Peripheral vascular system: No swelling by observation with palpable pulse in upper extremi ties. Detailed Neurologic Exam MoCA: 25/30 Speech: Is normal; fluent and spontaneous with normal naming and repetition. Cognition: The patient is oriented to person, place, and time; recent and remote memory is intact with normal attention span, concentration, and fund of knowledge. Able to remember 0/ 3 items at 5 minutes. Cranial Nerves: At this time, the pupils are equal, round, and reactive to light. Visual fi elds are full to finger confrontation. Extraocular movements are intact. Trigeminal sensatio n is intact and the muscles of mastication are normal. The face is symmetric. Hearing is sym metric bilaterally to fingers rubbing. The palate elevates in the midline. Voice is normal. Shoulder shrug is normal. The tongue has normal motion without fasciculations. Coordination: Normal finger to nose. Normal rapid alternating movements. Gait: Unremarakable. Observation: No asymmetry, atrophy, or involuntary movements noted. Tone: Normal muscle tone. Posture: Normal. Strength: Strength is 5/5 in the upper and lower limbs. Light Touch: Normal light touch sensation in upper and lower extremities. DTR's: Deep tendon reflexes in the upper extremities and knees are normal bilaterally. Assessment: Reason for visit: Evaluation and management of cognitive impairment. With: . Impression: 1- Chronic, progressive cognitive impairment, MCI vs early stage AD vs due to #2. 2- Mood disorder. Sleep is ok, no symptoms or signs of CHEMA. No labs or imaging were done or available to me. Plan: 1- The differential diagnosis and the necessary work up were discussed with the patient in detail. 2- I reviewed the available medical record and summarized it in my HPI. 3- We discussed the safety issues in detail including safe environment. No falls. 4- For #1, labs, brain MRI, WACE, healthy diet, mental and physical exercises. 5- I covered with the patient all side effects of the regimen and the interaction with othe r medications (she is feeling better since she started Zoloft?). Patient understands and agr ees to proceed with the regimen / plan. 6- Risk factors modification per PCP. The patient was instructed to follow up with PCP in r egards to the non neurological symptoms listed on the review of symptoms. 7- RTC in 2-3 months or prn. However, patient was instructed to call with any concern, if s ymptoms are worsening, not improving or if any side effects related to regimen. asked about genetic testing, discussed and decided to hold for now until next visit . documented in this en counter Plan of Treatment + +------+--------+ + + | Name | Type | Priori | Associated Diagnoses | Order Schedule | | | | ty | | | + +------+--------+ + + | CBC with | Lab | Routin | Memory loss | 1 Occurrences | | Differential | | e | | starting 05/12/2019 | | | | | | until 05/12/2020 | + +------+--------+ + + | Comprehensive | Lab | Routin | Memory loss | 1 Occurrences | | Metabolic Panel | | e | | starting 05/12/2019 | | | | | | until 05/12/2020 | + +------+--------+ + + | TSH | Lab | Routin | Memory loss | 1 Occurrences | | | | e | | starting 05/12/2019 | | | | | | until 05/12/2020 | + +------+--------+ + + | Vitamin B-1, Whole | Lab | Routin | Memory loss | 1 Occurrences | | Blood | | e | | starting 05/12/2019 | | | | | | until 05/12/2020 | + +------+--------+ + + | Vitamin B-12 and | Lab | Routin | Memory loss | 1 Occurrences | | Folate | | e | | starting 05/12/2019 | | | | | | until 05/12/2020 | + +------+--------+ + + documented as of this encounter Results MRI Brain wo Contrast [...] hydrocephalus). Signed by: | | | Joesph Montejo, Caleb Sign Date/Time: 06/12/2019 2:17 PM | | [...] + + | Salvatore, Rad Results In - 06/12/2019 2:21 PM PST | | MRI [...] Diagnosis | + + | Memory loss - Primary | + + | Mood disorder (HCC) Unspecified episodic mood disorder | + + | Exercise counseling | + + documented in this encounter
--- OUTSIDE RECORDS SUMMARY | ~2019-12-27 | XMS | Encounter Summary ---
Demographics + + + | Address | [address] | | | [place] [address] | + + + | Home Phone [...] Team Providers + +------+ + | Care Dye Mixer Name | Role | Phone | + +------+ + | Margarita Patterson | PCP | | + +------+ + Encounter Details +--------+ + + + + | Date | Type | Department | Care Team | Description | +--------+ + + + + | 10/08/ | Video/TeleH | [facility] | Daysi Mccauley MD | | | 2019 | ealth-Sched | Clinics at S | [address] | | | | uled | [place] [address] [place], | | | | | [facility] | [place] [address] | | | | | Health and Healing, | [phone] | | | | | [address] | | | | | | [place], [place] | | | | | | [address] | | | | | | [phone] | | | +--------+ + + + [...] Instructions Patient Instructions Kathrine Sheets RN - 10/09/2019 3:00 PM PDTThese are the things that w ere discussed during your appointment today: We're glad to hear you've been doing well and have been able to go longer without needin g blood transfusions. We're glad the pain in your legs is better, too. You are on a very low dose of the Jakafi. We think it has definitely helped. The challenge is that we can't increase the dose of Jakafi because your platelets are to o low. There is the possibility of a clinical trial for patients like you. In the trial, you w ould be assigned to a drug similar to Jakafi, or you get assigned to Jakafi. We don't think increasing the Jakafi is an option because your platelets are too low. We think the stem-cell transplant is still an option but it takes a really serious toll on people. It is worth learning more about transplant before making a decision. You are currently scheduled for a consult with our transplant team on November 09. Dr. Mccauley will review your eligibility for the clinical trial and someone will be in to uch with you in the next 1-2 weeks. Kathrine Sheets is [address]. Mccauley's Nurse Coordinator. If you have any questions, feel free to con tact her, her contact information is below. The best way to contact her is through [employer]. Please note, Kathrine is off on Wednesdays, but there are other members of the Oncology care team who will be available to assist you. Please call the clinic at [phone] for leigh ko. Kathrine Sheets, MSN-private secretary/Oncology Nurse Coordinator [facility] [place] | [facility] [address] [place] [address] Clinic: [phone] For further questions or concerns: [employer]: We encourage patients to use [employer] as the primary mode of communication. Feel fr ee to message us on MyChart with any questions that may arise. Please note that MyChart me ssages are not monitored on evenings, weekends, or holidays. If you have urgent symptoms or questions during those times, please call [phone] and ask to have the BMT Person On Ca ll paged. Sunday through Sunday from 8:00 am to 5:00 pm, if you have urgent questions or sy mptoms, please call our pole classifier for immediate assistance at [phone] or ext. [phone] Appointments/Questions/Follow-up: If you have any questions about appointments or need to c all to make a follow up appointment, please call the front worker at [phone]. Symptoms/Medical Questions: If you develop any symptoms or have any urgent medical question s, please call the Triage Nurse at [phone] or [phone] (Sunday - Sunday 8:30-4:30). After hours, please call [phone] and ask to have the BMT Person Printing Estimator pag ed. Feedback: We value and appreciate your opinion and would like to learn from your experience at [facility]. Please complete the surveys that [facility] sends. Thank you! Prescriptions: Please allow [...] encounter Progress Notes Daysi Mccauley MD - 10/09/2019 3:00 PM PDT Patient agrees to a telephone encounter for today's visit. They understand they may be resp onsible for the balance after insurance processes the claim. The visit took place via telephone with the provider located at the distant site of [facility]. T he patient stated they were located at the originating site of home and were in the state of [place] at the time of the telephone visit. The names of all additional persons participating in the telephone visit and their roles are: Daughter and . Time spent on the call: 27 min. The patients encounter was accomplished via a telephone call today due to COVID-19 precauti onary measures to limit the patient's unnecessary exposure. Myelofibrosis Follow Up Visit: Fidelia Pickett is a 69 year old female who was referred t o our clinic for management of newly diagnosed Myelofibrosis, pending genetic testing, in th e setting of pancytopenia and bone marrow abnormalities. History of Present Illness: Fidelia Pickett is presenting today for after new likely diagnosis of MF. The patient has a past medical history that includes HTN and hypothyroidism. The patient's hematological hi story dates back to 08/02/2019 where she was seen in the ED in [place], [place] for dyspnea. Fou nd to be pancytopenic including Hgb/HCT of 6.3/18.1 and platelet count at 42. She was transf used two units and discharged home with plan for follow-up and BMBx at [facility]. Subsequently admitted from 08/04-08/08/2019 at [facility] d/t pancytopenia. BMBx performed on 0. [...] with Dr. Sherri chamberlain at [facility] Heme[facility]Onc. She had been doing [...] supportive transfusions. Today: Patient presents today via telephone visit, accompanied by her . Patient stat es she is feeling well - has not required transfusion for 10 days. Her arthralgias have been well-controlled this last week and she has been utilizing analgesics less frequently. Energ y level and mental clarity have been up & down depending on the day, though seems to be impr naveen with daily naps. Currently tolerating Rux without complication. Review of Systems Constitutional: Positive for malaise/fatigue. [...] No family history of blood cancers. PE: There were no vitals filed for this visit. Unable to perform PE via telephone visit. Laboratory CBC 10/06/2019 CBC 10/02/2019 BMBX [...] found in m yeloid malignancies such as [id number] are recommended. ECHO Labs, imaging and pathology [...] option for her in the future. -She has transitioned care to Dr. Santamaria based on schedule/preference. -She continues on prophylactic antimicrobials and supportive transfusions infection and sym ptom control. -All of patient's and family members questions were answered. Dr. Santamaria started her on an antifungal, 10/06/2019-voriconazole, she continues to dillan ate the low dose Rux well. Will RTC when we have clinical trial active and ready for enrollm ent . We also discussed that we would have her see The transplant team to discuss the role of allogeneic stem cell transplant for this disease. RTC in 4 weeks. I am Mor Coates functioning as a scribe for Daysi Mccauley MD at 2:23 PM on 10/09/2019 I have reviewed and verified the above scribed note of my visit with this patient as record ed by Mor Coates. Daysi Mccauley, Limb Driver, Section for Hematologic Malignancies. [facility] [place] Swathi Le MA - 12/2019 3:00 PM PDTPt name and confirmed Speaking directly with pt: Yes If no, then to whom and why: Confirm pt has [employer] Account: Yes If no, send email link via [employer] and provide support information listed below. Directive Status Reviewed: No If no, explain: Allergies Reviewed: Yes If no, explain: Medications Reviewed: Yes If no, explain: Pharmacy Reviewed: Yes If no, explain: Pt reported vitals obtained: No Pt questions for provider: none Pt asked to log into [employer], locate appointment, and test equipment after call. Pt given instruction to call back or reach out to support for any questions or issues. Patient informed that: ? They will be contacted within 20 minutes + or - of their scheduled appt time. ? At appt time, they will need to follow the steps outlined in the "[facility] Virtual Visits" gu aryan at [email or web address] ? If they experience audio issues during visit, they should stay on the videocall and expec t to receive a telephone call for the audio. [employer] Support: 8a-5p [phone] [email or web address]/[email or web address] Garrett delgado in this encounter Plan of Treatment +--------+ [...] | | | | | [place], | | | | | | [place] [address] | | | | | | [phone] | | | | | | | | +--------+ + + + + | 01/14/ | Appointment | Hematology & | Onc, Gen [address] | | | 2019 | | Oncology | [place], | | | | | | [place] [address] | | +--------+ + + + + documented as of this encounter Visit Diagnoses + + | Diagnosis | + + | MF (myelofibrosis) (HCC) - Primary Myelofibrosis | + + documented in this encounter
--- OUTSIDE RECORDS SUMMARY | ~2019-12-27 | XMS | Encounter Summary ---
Demographics + + + | Address | [address] | | | [place] [address] | + + + | Home Phone | | + + + | Preferred Language | Unknown | + + + | Marital Status | | + + + | Mormonism Affiliation | LUT | + + + [...] Team Providers + +------+ + | Care Bruise Trimmer Name | Role | Phone | + +------+ + | Oz Rodriguez MD | PCP | | + +------+ + Encounter Details +--------+ + + + + | Date | Type | Department | Care Team | Description | +--------+ + + + + | 12/16/ | Gang Supervisor Pipe Lines | [facility] | Daysi Mccauley MD | Myelofibrosis (HCC) | | 2020 | | Clinics at S | [address] | (Primary Dx) | | | | [facility] [address] | [place], | | | | | [facility] | [place] [address] | | | | | Health and Healing, | [phone] | | | | | [address] | | | | | | [place], [place] | | | | | | [address] | | | | | | [phone] | | | +--------+ + + + [...] | | | | | [place] [facility] | | | | | | [place] [address] | | | | | | [phone] | | | | | | | | +--------+ + + + + | 01/14/ | Appointment | Hematology & | Onc, Gen [address] | | | 2019 | | Oncology | [place], | | | | | | [place] [address] | | +--------+ + + + + [...] [facility] | [address] | [place] [address] | | | SERVICES, [facility] | | | | | HEALTH [...] + + + + + | [employer] | [address] | [place] [address] | | | [facility] | | | | | HEALTH + HEALING | | | | + + + + + documented in this encounter Visit Diagnoses + + | Diagnosis | + + | Myelofibrosis (HCC) - Primary Myelofibrosis | + + documented in this encounter"
--- OUTSIDE RECORDS SUMMARY | ~2019-12-27 | XMS | Encounter Summary ---
Demographics + + + | Address | [address] | | | [place] [address] | + + + | Home Phone [...] Team Providers + +------+ + | Care Fur Scraper Name | Role | Phone | + +------+ + | Margarita Patterson | PCP | | + +------+ + Encounter Details +--------+ + + + + | Date | Type | Department | Care Team | Description | +--------+ + + + + | 08/10/ | Attic Blower | [facility] | Valarie Levi, | | | 2019 | | Clinics at | [facility] [address] [facility] | | | | | [facility] [address] | | | | | [facility] | [place], [place] | | | | | Health and Healing, | [address] | | | | | [address] | [phone] | | | | | [place], [place] | | | | | | [address] | | | | | | [phone] | | | +--------+ + + + [...] | | | | | [place], | | | | | | [place] [address] | | | | | | [phone] | | | | | | | | +--------+ + + + + | 01/14/ | Appointment | Hematology & | Onc, Gen [address] | | | 2020 | | Oncology | [place], | | | | | | [place] [address] | | +--------+ + + + + documented as of this encounter Visit Diagnoses Not on filedocumented in this encounter"
--- OUTSIDE RECORDS SUMMARY | ~2019-12-27 | XMS | Encounter Summary ---
Demographics + + + | Address | [address] | | | [place] [address] | + + + | Home Phone [...] Team Providers + +------+ + | Care Multimedia Specialist Name | Role | Phone | + +------+ + | Oz Rodriguez MD | PCP | | + +------+ + Encounter Details +--------+ + + + + | Date | Type | Department | Care Team | Description | +--------+ + + + + | 12/14/ | Pharmacy | Pharmacy @ [facility] | | | | 2020 | Visit | [address] | | | | | | [address] Mailcode: | | | | | | [facility] | | | | | | and [place], | | | | | | [address] | | | | | | [place], [place] | | | | | | [address] | | | +--------+ + + + [...] | | | | | [place], | | | | | | [place] [address] | | | | | | [phone] | | | | | | | | +--------+ + + + + | 01/14/ | Appointment | Hematology & | Onc, Gen [address] | | | 2020 | | Oncology | [address] [place], | | | | | | [place] [address] | | +--------+ + + + + documented as of this encounter Visit Diagnoses Not on filedocumented in this encounter"
--- OUTSIDE RECORDS SUMMARY | ~2019-12-27 | XMS | Encounter Summary ---
Demographics + + + | Address | [address] | | | [place] [address] | + + + | Home Phone [...] Team Providers + +------+ + | Care Coil Repair Technician Name | Role | Phone | + +------+ + | SilverioMargarita crawford SUPERVISOR BOTTLE MACHINES | PCP | | + +------+ + [...] | | | | | | [place] [address] | | | | | | [phone] | | | | | | | | +--------+ + + + + | 01/14/ | Appointment | Hematology & | Onc, Gen [address] | | | 2019 | | Oncology | [place] | | | | | | [place] [address] | | +--------+ + + + + documented as of this encounter Visit Diagnoses Not on filedocumented in this encounter"
--- OUTSIDE RECORDS SUMMARY | ~2019-12-27 | XMS | Encounter Summary ---
Demographics + + + | Address | [address] | | | [place] [address] | + + + | Home Phone [...] Team Providers + +------+ + | Care Technology Sales Specialist Name | Role | Phone | + +------+ + | Oz Rodriguez MD | PCP | | + +------+ + Encounter Details +--------+ + + + + | Date | Type | Department | Care Team | Description | +--------+ + + + + | 09/15/ | Pharmacy | Pharmacy @ [facility] | | | | 2020 | Visit | [address] | | | | | | [address] Mailcode: | | | | | | [facility] | | | | | | and [address], | | | | | | Building 2 | | | | | | [place], [place] | | | | | | [address] | | | +--------+ + + + [...] | | | | | [address] [place], | | | | | | [place] [address] | | | | | | [phone] | | | | | | | | +--------+ + + + + | 01/14/ | Appointment | Hematology & | Onc, Gen [address] | | | 2020 | | Oncology | [place], | | | | | | [place] [address] | | +--------+ + + + + documented as of this encounter Visit Diagnoses Not on filedocumented in this encounter"
--- OUTSIDE RECORDS SUMMARY | ~2019-12-27 | XMS | Encounter Summary ---
Demographics + + + | Address | [address] | | | [place] [address] | + + + | Home Phone [...] Team Providers + +------+ + | Care Chief Bank Examiner Name | Role | Phone | + +------+ + | Margarita Patterson | PCP | | + +------+ + Encounter Details +--------+ + + + + | Date | Type | Department | Care Team | Description | +--------+ + + + + | 08/17/ | Garnetter | [facility] | Daysi Mccauley MD | | | 2019 | | [facility] at | [address] | | | | | [address] [place], | | | | | [facility] | [place] [address] | | | | | Health and Healing, | [phone] | | | | | Building [address] | | | | | | [place], [place] | | | | | | [address] | | | | | | [phone] | | | +--------+ + + + [...] | | | | | [address] [place], | | | | | | [place] [address] | | | | | | [phone] | | | | | | | | +--------+ + + + + | 01/14/ | Appointment | Hematology & | Onc, Gen [address] | | | 2020 | | Oncology | [place], | | | | | | [place] [address] | | +--------+ + + + + documented as of this encounter Visit Diagnoses Not on filedocumented in this encounter"
--- OUTSIDE RECORDS SUMMARY | ~2019-12-27 | XMS | Encounter Summary ---
Demographics + + + | Address | [address] | | | [place] [address] | + + + | Home Phone [...] Team Providers + +------+ + | Care Cribber Name | Role | Phone | + +------+ + | Oz Rodriguez MD | PCP | | + +------+ + Encounter Details +--------+ + + + + | Date | Type | Department | Care Team | Description | +--------+ + + + + | 08/28/ | Pharmacy | Pharmacy @ [facility] | | | | 2020 | Visit | [address] | | | | | | [address] [place] Mailcode: | | | | | | [facility] | | | | | | and [address], | | | | | | Building 2 | | | | | | [place], [place] | | | | | | [address] | | | +--------+ + + + [...] | | | | | [address] [place], | | | | | | [place] [address] | | | | | | [phone] | | | | | | | | +--------+ + + + + | 01/14/ | Appointment | Hematology & | Onc, Gen [address] | | | 2020 | | Oncology | [address] [place], | | | | | | [place] [address] | | +--------+ + + + + documented as of this encounter Visit Diagnoses Not on filedocumented in this encounter"
--- OUTSIDE RECORDS SUMMARY | ~2019-12-27 | XMS | Encounter Summary ---
Demographics + + + | Address | [address] | | | [place] [address] | + + + | Home Phone [...] Team Providers + +------+ + | Care Laboratory Tester Name | Role | Phone | + [...] | Clinics at S | [address] [facility] | Documentation | | | | [address] [place], | | | | | [facility] | [place] [address] | | | | | Health and Healing, | [phone] | | | | | [address] | | | | | | [place], [place] | | | | | | [address] | | | | | | [phone] | | | +--------+ + + + [...] | | | | | | [place] [address] | | | | | | [phone] | | | | | | | | +--------+ + + + + | 01/14/ | Appointment | Hematology & | Onc, Gen [address] | | | 2019 | | Oncology | [place], | | | | | | [place] [address] | | +--------+ + + + + documented as of this encounter Visit Diagnoses Not on filedocumented in this encounter"
--- OUTSIDE RECORDS SUMMARY | ~2019-12-27 | XMS | Encounter Summary ---
Demographics + + + | Address | [address] | | | [place] [address] | + + + | Home Phone | | + + + | Preferred Language | Unknown | + + + | Marital Status | | + + + | Hindu Affiliation | LUT | + + + | Race | White | + + + | Ethnic Group | Not or | + + + Author + + + | Author | [facility] | + + + | Organization | [facility] | + + + | [...] Team Providers + +------+ + | Care Configuration Management Administrator Name | Role | Phone | + +------+ + | Oz Rodriguez MD | PCP | | + +------+ + Encounter Details +--------+ + + + + | Date | Type | Department | Care Team | Description | +--------+ + + + + | 12/14/ | Document-Sc | UNKNOWN DEPARTMENT | Other, Faculty | | | 2020 | annsabas | [address] [facility] | [phone] | | | | | [address] | | | | | | [place], [place] | | | | | | [address] | | | +--------+ + + + [...] | | | | | [address] [place], | | | | | | [place] [address] | | | | | | [phone] | | | | | | | | +--------+ + + + + | 01/14/ | Appointment | Hematology & | Onc, Gen [address] | | | 2020 | | Oncology | [place], | | | | | | [place] [address] | | +--------+ + + + + documented as of this encounter Visit Diagnoses Not on filedocumented in this encounter"
--- OUTSIDE RECORDS SUMMARY | ~2019-12-27 | XMS | Encounter Summary ---
Demographics + + + | Address | [address] | | | [place] [address] | + + + | Home Phone [...] + + + | Author | [facility] | + + + | Organization | [facility] | + + + | [...] Team Providers + +------+ + | Care Plastic Battery Assembler Name | Role | Phone | + +------+ + | Margarita Patterson | PCP | | + +------+ + Encounter Details +--------+ + + + + | Date | Type | Department | Care Team | Description | +--------+ + + + + | 08/21/ | Adolescent Counselor | [facility] | Daysi Mccauley MD | | | 2019 | | [facility] at | [address] | | | | | [address] [place], | | | | | [facility] | [place] [address] | | | | | Health and Healing, | [phone] | | | | | [address] | | | | | | [place], [place] | | | | | | [address] | | | | | | [phone] | | | +--------+ + + + [...] | | | | | [address] [address] [place], | | | | | | [place] [address] | | | | | | [phone] | | | | | | | | +--------+ + + + + | 01/14/ | Appointment | Hematology & | Onc, Gen [address] | | | 2020 | | Oncology | [place], | | | | | | [place] [address] | | +--------+ + + + + documented as of this encounter Visit Diagnoses Not on filedocumented in this encounter"
--- OUTSIDE RECORDS SUMMARY | ~2019-12-27 | XMS | Encounter Summary ---
Demographics + + + | Address | [address] | | | [place] [address] | + + + | Home Phone [...] Providers + +------+ + | Care Lumber Chain Offbearer Name | Role | Phone | + +------+ + | Oz Rodriguez MD | PCP | | + +------+ + Encounter Details +--------+ + + + + | Date | Type | Department | Care Team | Description | +--------+ + + + + | 09/16/ | Pharmacy | Pharmacy @ [facility] | | | | 2020 | Visit | [address] | | | | | | [address] Mailcode: | | | | | | [facility] | | | | | | and [address], | | | | | | Building 2 | | | | | | [place], [place] | | | | | | [address] | | | +--------+ + + + [...] | | | | | [address] [address], | | | | | | [place] [address] | | | | | | [phone] | | | | | | | | +--------+ + + + + | 01/14/ | Appointment | Hematology & | Onc, Gen [address] | | | 2020 | | Oncology | [place], | | | | | | [place] [address] | | +--------+ + + + + documented as of this encounter Visit Diagnoses Not on filedocumented in this encounter"
--- OUTSIDE RECORDS SUMMARY | ~2019-12-27 | XMS | Encounter Summary ---
Demographics + + + | Address | [address] | | | [place] [address] | + + + | Home Phone [...] Team Providers + +------+ + | Care Econometrics Professor Name | Role | Phone | + +------+ + | Oz Rodriguez MD | PCP | | + +------+ + Encounter Details +--------+ + + + + | Date | Type | Department | Care Team | Description | +--------+ + + + + | 09/01/ | Pharmacy | Pharmacy @ [facility] | | | | 2020 | Visit | [address] | | | | | | [address] Mailcode: | | | | | | [facility] | | | | | | and [address], | | | | | | [address] 2 | | | | | | [place], [place] | | | | | | [address] | | | +--------+ + + + [...] | | | | | [place], | | | | | | [place] [address] | | | | | | [phone] | | | | | | | | +--------+ + + + + | 01/14/ | Appointment | Hematology & | Onc, Gen [address] | | | 2020 | | Oncology | [place], | | | | | | [place] [address] | | +--------+ + + + + documented as of this encounter Visit Diagnoses Not on filedocumented in this encounter"
--- OUTSIDE RECORDS SUMMARY | ~2019-12-27 | XMS | Encounter Summary ---
Demographics + + + | Address | [address] | | | [place] [address] | + + + | Home Phone [...] Providers + +------+ + | Care Manager Ccu Name | Role | Phone | + +------+ + | SilverioMargarita crawford ADMITTING COUNSELOR | PCP | | + +------+ + [...] | | | | | | [place] [address] | | | | | | [phone] | | | | | | | | +--------+ + + + + | 01/14/ | Appointment | Hematology & | Onc, Gen [address] | | | 2019 | | Oncology | [place] | | | | | | [place] [address] | | +--------+ + + + + documented as of this encounter Visit Diagnoses Not on filedocumented in this encounter"
--- OUTSIDE RECORDS SUMMARY | ~2019-12-27 | XMS | Encounter Summary ---
Demographics + + + | Address | [address] | | | [place] [address] | + + + | Home Phone [...] Team Providers + +------+ + | Care Sprayer Automatic Spray Machine Name | Role | Phone | + [...] Clinics at S | [address] [facility] | | | | | [address] [place], | | | | | [facility] | [place] [address] | | | | | Health and Healing, | [phone] | | | | | [facility] 2 | | | | | | [place], [place] | | | | | | [address] | | | | | | [phone] | | | +--------+ + + + [...] | | | | | | [place] [address] | | | | | | [phone] | | | | | | | | +--------+ + + + + | 01/14/ | Appointment | Hematology & | Onc, Gen [address] | | | 2019 | | Oncology | [place], | | | | | | [place] [address] | | +--------+ + + + + documented as of this encounter Visit Diagnoses Not on filedocumented in this encounter"
--- OUTSIDE RECORDS SUMMARY | ~2019-12-27 | XMS | Encounter Summary ---
Demographics + + + | Address | [address] | | | [place] [address] | + + + | Home Phone | | + + + | Preferred Language | Unknown | + + + | Marital Status | | + + + | Restoration Affiliation | LUT | + + + [...] Team Providers + +------+ + | Care Administrative Executive Name | Role | Phone | + +------+ + | Margarita Patterson | PCP | | + +------+ + Reason for Visit +--------+ + | Reason | Comments | +--------+ + | Fever | Recommedations for management | +--------+ + Encounter Details +--------+ + + + + | Date | Type | Department | Care Team | Description | +--------+ + + + + | 12/08/ | Telephone | [facility] | Daysi Mccauley MD | Fever | | 2020 | | Clinics at S | [address] | (Recommedations for | | | | [address] | [place], | management ) | | | | [facility] for | [place] [address] | | | | | Health and Healing, | [phone] | | | | | Building 2 | | | | | | [place], [place] | | | | | | [address] | | | | | | [phone] | | | +--------+ + + + [...] | | | | | | [place] [address] | | | | | | [phone] | | | | | | | | +--------+ + + + + | 01/14/ | Appointment | Hematology & | Onc, Gen [address] | | | 2019 | | Oncology | [place] | | | | | | [place] [address] | | +--------+ + + + + documented as of this encounter Visit Diagnoses Not on filedocumented in this encounter"
--- OUTSIDE RECORDS SUMMARY | ~2019-12-27 | XMS | Encounter Summary ---
Demographics + + + | Address | [address] | | | [place] [address] | + + + | Home Phone [...] Team Providers + +------+ + | Care Switchboard Operator Assistant Name | Role | Phone | + +------+ + | Oz Rodriguez MD | PCP | | + +------+ + Encounter Details +--------+ + + + + | Date | Type | Department | Care Team | Description | +--------+ + + + + | 09/21/ | Pharmacy | Pharmacy @ [facility] | | | | 2019 | Visit | [address] | | | | | | [address] [place] Mailcode: | | | | | | [facility] | | | | | | and [address], | | | | | | Building 2 | | | | | | [place], [place] | | | | | | [address] | | | +--------+ + + + [...] | | | | | [place], | | | | | | [place] [address] | | | | | | [phone] | | | | | | | | +--------+ + + + + | 01/14/ | Appointment | Hematology & | Onc, Gen [address] | | | 2020 | | Oncology | [place], | | | | | | [place] [address] | | +--------+ + + + + documented as of this encounter Visit Diagnoses Not on filedocumented in this encounter"
--- OUTSIDE RECORDS SUMMARY | ~2019-12-27 | XMS | Encounter Summary ---
Demographics + + + | Address | [address] | | | [place] [address] | + + + | Home Phone [...] Team Providers + +------+ + | Care Software Development Analyst Name | Role | Phone | + +------+ + | Margarita Patterson | PCP | | + +------+ + Encounter Details +--------+ + + + + | Date | Type | Department | Care Team | Description | +--------+ + + + + | 08/07/ | International Trade Specialist | [facility] | Valarie Levi, | Pancytopenia (HCC) | | 2020 | | Clinics at S | PA-C [address] | (Primary Dx); | | | | [address] | Finding of other | | | | [facility] for | [facility], [place] | specified | | | | Health and Healing, | [address] | substances, not | | | | [address] | [phone] | normally found in | | | | [place], [place] | | blood | | | | [address] | | | | | | [phone] | | | +--------+ + + + [...] | | | | | | [place] [address] | | | | | | [phone] | | | | | | | | +--------+ + + + + | 01/14/ | Appointment | Hematology & | Onc, Gen [address] | | | 2019 | | Oncology | [place] | | | | | | [place] [address] | | +--------+ + + + + documented as of this encounter Visit Diagnoses + + | Diagnosis | + + | Pancytopenia (HCC) - Primary Other pancytopenia | + + | Finding of other specified substances, not normally found in blood | + + documented in this encounter"
--- OUTSIDE RECORDS SUMMARY | ~2019-12-27 | XMS | Encounter Summary ---
Demographics + + + | Address | [address] | | | [place] [address] | + + + | Home Phone [...] Team Providers + +------+ + | Care Athletic Equipment Custodian Name | Role | Phone | + [...] | | | | (myelodyspla | [address] [facility] | Isaac Cheung MD | | | | | stic | [address] | [address] | | | | | syndrome) | Rd | Gaston Lindsay | | | | | (HCC) | [facility], [place] | [place], [place] | | | | | Procedures | [address] | [address] | | | | | CONSULT TO | Phone: | Phone: | | | | | HEMATOLOGY / | [phone] | [phone] | | | | | ONCOLOGY | Fax: | Fax: | | | | | | [phone] | [phone] | + +--------+ + + + + [...] | [address] | [place] [place], | | | | | [facility] | [place] [address] | | | | | Health and Healing, | [phone] | | | | | [facility] 2 | | | | | | [place], [place] | | | | | | [address] | | | | | | [phone] | | | +--------+ + + + [...] | | | | | [place], | | | | | | [place] [address] | | | | | | [phone] | | | | | | | | +--------+ + + + + | 01/14/ | Appointment | Hematology & | Onc, Gen [address] | | | 2020 | | Oncology | [place], | | | | | | [place] [address] | | +--------+ + + + + documented as of this encounter Visit Diagnoses + + | Diagnosis | + + | MDS (myelodysplastic syndrome) (HCC) - Primary Myelodysplastic syndrome, unspecified | + + documented in this encounter"
--- OUTSIDE RECORDS SUMMARY | ~2019-12-27 | XMS | Encounter Summary ---
Demographics + + + | Address | [address] | | | [place] [address] | + + + | Home Phone [...] Team Providers + +------+ + | Care Solutions Development Analyst Name | Role | Phone [...] | [address] [place], | | | | | [facility] | [place] [address] | | | | | Health and Healing, | [phone] | | | | | [address] | | | | | | [place], [place] | | | | | | [address] | | | | | | [phone] | | | +--------+ + + + [...] best way to contact her is through [email or web address]. Please note, Kathrine is off on Wednesdays, but there are other members of the Oncology care team who will be available to assist you. Please call the clinic at [phone] for leigh ko. Kathrine Sheets, MSN-inspector fuel hose/Oncology Nurse Coordinator [facility] [place] | [facility] [address] [place] [address] Clinic: [phone] For further questions or concerns: MyChart: We encourage patients to use avVentat as the primary mode of communication. Feel fr ee to message us on [email or web address] with any questions that may arise. Please note that [email or web address] me ssages are not monitored on evenings, weekends, or holidays. If you have urgent symptoms or questions during those times, please call [phone] and ask to have the BMT Person On Ca ll paged. Sunday through Sunday from 8:00 am to 5:00 pm, if you have urgent questions or sy mptoms, please call our mate chief for immediate assistance at [phone] or ext. [phone] Appointments/Questions/Follow-up: If you have any questions about appointments or need to c all to make a follow up appointment, please call the front office coordinator at [phone]. Symptoms/Medical Questions: If you develop any symptoms or have any urgent medical question s, please call the Triage Nurse at [phone] or [phone] (Sunday - Sunday 8:30-4:30). After hours, please call [phone] and ask to have the BMT Person Computer Networker pag ed. Feedback: We value and appreciate your opinion and would like to learn from your experience at [facility]. Please complete the surveys that [facility] sends. Thank you! Prescriptions: Please allow 48-72 [...] aldana located at the distant site of [facility]. The patient stated they were located at the or iginating site of home and were in the state of [place] at the time of the virtual visit. The [facility] es of all additional persons participating in the virtual visit and their roles are: and daughter . I have spent a total of 26 minutes on this patient's care today. This time includes the vir tual visit [id number] time with the patient as well as [...] she was seen in the ED in [place], [place] for dyspnea. Fou nd to be pancytopenic including Hgb/HCT of 6.3/18.1 and platelet count at 42. She was transf used two units and discharged home with plan for follow-up and BMBx at [facility]. Subsequently admitted from 08/04-08/08/2019 at [facility] d/t pancytopenia. BMBx performed on 0. Marrow [...] of BMBx with Dr. Sherri chamberlain at [facility]. She had been doing well for the [...] found in m yeloid malignancies such as [id number] are recommended. Labs, imaging and pathology discussed [...] record ed by Mor Coates. Daysi Mccauley, Furnace Installer, Section for Hematologic Malignancies. [facility] documented in this enco unter Plan [...] | | | | | | [place] [address] | | | | | | [phone] | | | | | | | | +--------+ + + + + | 01/14/ | Appointment | Hematology & | Onc, Gen [address] | | | 2019 | | Oncology | [place], | | | | | | [place] [address] | | +--------+ + + + + documented as of this encounter Visit Diagnoses + + | Diagnosis | + + | MF (myelofibrosis) (HCC) - Primary Myelofibrosis | + + documented in this encounter"
--- OUTSIDE RECORDS SUMMARY | ~2019-12-27 | XMS | Clinical Summary ---
Demographics + + + | Address | [address] | | | [place] [address] | + + + | Home Phone [...] + | Cherelle Silva | ECON | [place], | | + + + + + Care Team Providers + +------+ + | Care Sonography Technologist Name | Role | Phone | + +------+ + | Oz Rodriguez MD | PCP | | + +------+ + Source Comments ABIGAIL is fully live on both [facility] Ambulatory and [facility] InPatient.[facility] Allergies No Known Allergies Medications + [...] | 12/24/ | Documentati | Hematology | Christy Mccauley MD | Research | | 2020 | on | Malignancy | | Documentation | +--------+ + + + + | 12/22/ | Farm Products Shipper | Hematology | Christy Mccauley MD | [...] + + + + | 12/16/ | Farm Products Shipper | Hematology | Christy Mccauley MD | [...] + + + + | 12/15/ | Farm Products Shipper | Hematology | Christy Mccauley MD | [...] +--------+ + + + + 12/15/ | Farm Products Shipper | Hematology | Christy Mccauley MD | [...] + + + + | 12/01/ | Farm Products Shipper | Hematology | Christy Mccauley MD | [...] + + + + | 11/09/ | Farm Products Shipper | Hematology | Christy Mccauley MD | [...] | 10/08/ | Video/TeleH | Hematology | Christy Mccauley [...] | | | | | | [place] [address] | | | | | | [phone] | | | | | | | | +--------+ + + + + | 01/14/ | Appointment | Hematology & | Onc, Gen [address] | | | 2019 | | Oncology | [place] | | | | | | [place] [address] | | +--------+ + + + + [...] Routin | 12/09/2019 | Pancytopenia ([facility]) | Results for this | | | e | 8:19 AM | | procedure are in the | | | | PDT | | results section. | + +--------+ + + + | TYPE AND SCREEN | Routin | 12/09/2019 | Pancytopenia ([facility]) | Results for this | | | e | 8:19 AM | | procedure are in the | | | | PDT | | results section. | + +--------+ + + + | RBC MORPHOLOGY | Routin | 12/09/2019 | Pancytopenia ([facility]) | Results for this | | | [...] e | 1:42 PM | ([facility]) | | | | | PDT | [...] e | 1:42 PM | ([facility]) | procedure are in the | | | | PDT | | results section. | + +--------+ + + + | RBC MORPHOLOGY | Routin | 11/10/2019 | MF (myelofibrosis) | Results for this | | | e | 11:58 AM | ([facility]) | procedure are in the | | | | PDT | | results section. | + +--------+ + + + | MANUAL DIFFERENTIAL | Routin | 11/10/2019 | MF (myelofibrosis) | Results for this | | | e | 11:58 AM | ([facility]) | procedure are in the | | | | PDT | | results section. | + +--------+ + + + | CBC AND AUTO DIFF | Routin | 11/10/2019 | MF (myelofibrosis) | Results for this | | | e | 11:58 AM | ([facility]) | procedure are in the | | [...] + + + + | PRODUCT | [id number] | | [facility] | | | UNIT [...] + + + + | EXPIRATION | [id number] | | [facility] | | | DATE [...] + + + + | BLOOD | [id number] | | [facility] | | | PRODUCT [...] + + + + + | [facility] | [address] | [place] [address] | | | SERVICES, | [address] [...] [place], | | | | | | [facility] | | | | [...] | + + + + + | [facility] | [address] | [place] [address] | | | SERVICES, [place] [facility] | | | | | HEALTH [...] [facility] | [address] | [place] [address] | | | SERVICES, CENTER FOR | [...] | + + + + + | [facility] | [address] | [place] [address] | | | SERVICES, [place] [facility] | | | | | HEALTH [...] | + + + + + | [facility] | [address] | [place] [address] | | | [facility] | | | | | [...] LABORATORY | [address] | [place] [address] | | | SERVICES, [place] [facility] | | | | | HEALTH [...] LABORATORY | [address] | [place] [address] | | | SERVICES, [place] [facility] | | | | | HEALTH + HEALING | | | | + + + + + CH - COMPLETE METABOLIC SET (12/17/2019 7:56 AM PDT)Only the most recent of 4 results wit lan the time period is included. + +---------+ [...] | | | LABORATORY | | | S[place]I | | | SERVICES, | | | [...] MDRD equation recommended by the National | [facility] | | Kidney Disease Education Program. Estimated [...] + + + + + | [facility] | [address] | [place] [address] | | | SERVICES, [place] [facility] | | | | | HEALTH [...] | + + + + + | [facility] | [address] | [place] [address] | | | SERVICES, [place] [facility] | | | | | HEALTH [...] [facility] | [address] | [place] [address] | | | [facility], [place] [facility] | | | | | HEALTH [...] | | | CULTURE | | | [facility], | [...] [facility] | [address] | [place] [address] | | | SERVICES, [place] [facility] | | | | | HEALTH [...] [facility] | [address] | [place] [address] | | | SERVICES, | [address] [...] + + + + + | [facility] | [address] | [place] [address] | | | SERVICES, | [address] [...] [facility] | [address] | [place] [address] | | | SERVICES, | [address] [...] | + + + + + | [facility] | [address] | [place] [address] | | | ANY GUZMAN | [address] | | | + + + [...] | [facility] | | considered for monitoring rn long term care glycemic control in patients with: | LABORATORY [...] | + + + + + | [facility] | [address] | [place] [address] | | | SERVICES, SPECIAL | SHANNA [...] [facility] | [address] | [place] [address] | | | [facility] | | | | | [...] 5-6 weeks | | | 850 - 86009 6-7 weeks | | | 4000 - 056219 7-12 weeks | | | 93327 - 645436 12-16 weeks | | | 38001 - 561211 16-29 | | | weeks 1400 - 84671 | | | 29-41 weeks 940 - 46628 | | | This test has not been approved for use as a tumor marker in | | | males or females. | | + + + + + + + + | Performing | Address | City/State/Zipcode | Phone Number | | Organization | | | | + + + + + | [facility] | [address] | [place] [address] | | | SERVICES, CORE | SHANNA [...] Performed At | + -+ + | [facility] | [facility] | | [facility] Adult Echocardiography [facility] [address] CARDIOLOGY | | [address] [place], [place] [address] Ph: | | | Pt Name: LANETTE PICKETT | | | Study Date/Time 12/09/2019 / 1:47:19 PMMRN: [id number] | | | Most recent prior: 08/06/2019Acc #: [id number] | | | No. previous echos: 1DOB: 1950 69 years Heart Rate: | | | 59 bpmHeight: 65.9 in Blood Pressure: | | | 102/65 mm/HgWeight: 212.0 lb Gender: | | | FBSA: 2.05 m | | | Order ID: [id number] Study | | | [facility] Nadia HENRIQUEZ, [facility] HOSPITALSReferring Provider: | | | CHRISTY M BORATEModalities Performed: 2D, Color flow, Spectral Doppler, | | | Strain and For the precise quantification of LV volumes and ejection | | | fraction, online 3-D reconstruction was clinically indicated and | | | performed under the concurrent supervision of the interpreting | | | senior electrical engineer.Study Quality: Fair.Exam Indication: Research; [place] | | | [id number]: Myelofibrosis Patient history has been obtained from [...] Report | | | electronically signed by: [id number] Eric Lin MD, PhD (12/09/2019, | | [...] | | | |Report electronically signed by: [id number] Eric Lin MD, PhD (12/09/2019, 2:48:53 | | | PM) | | | | | | | | | | | | Final | | + -+ + + + | Procedure Note | + + | Interface, Cardiology Results - 12/09/2019 2:48 PM [facility] | | [facility] Echocardiography Laboratory [address] [place] [address] | | [place], [place] [address] Pt Name: LANETTE ALARCON | | BOWLING GREEN Study Date/Time 12/09/2019 / 1:47:19 PMMRN: [id number] Most | | recent prior: 08/06/2019Acc #: [id number] No. previous echos: 1DOB: | | 1950 69 years Heart Rate: 59 bpmHeight: 65.9 in Blood | | Pressure: 102/65 mm/HgWeight: 212.0 lb Gender: FBSA: | | 2.05 m | | Order ID: [id number] Study [facility]ographer: September | | Lázaro HENRIQUEZ, RDCSReferring Provider: CHRISTY M BORATEModalities Performed: 2D, Color flow, | | Spectral Doppler, Strain and For the precise quantification of LV volumes and ejection | | fraction, online 3-D reconstruction was clinically indicated and performed under the | | concurrent supervision of the interpreting senior electrical engineer.Study Quality: Fair.Exam | | Indication: Research; [place] [id number]: Myelofibrosis Patient history has been | | obtained from the [facility] Transthoracic Echocardiographic | | Report+ + | [...] and indexed values Report electronically signed by: [id number] Eric | | Riley WORTHY, PhD (12/09/2019, [...] | | | |Report electronically signed by: [id number] Eric Lin MD, PhD (12/09/2019, 2:48:53 | | PM) | | | | | | | | Final | + + + + + + + | Performing | Address | City/State/Zipcode | Phone Number | | Organization | | | | + + + + + | [facility] | [address] | [place], [place] | | | CARDIOLOGY | [address] | [address] | | + + + + + [...] + + + + + | [facility] | [address] | [place] [address] | | | SERVICES, CORE | SHANNA [...] [facility] | [address] | [place] [address] | | | [facility], [place] [facility] | | | | | HEALTH [...] Note | + + | Service Account, e Health Access In Interface - 12/08/2019 8:49 AM PDT [...] [facility] | [address] | [place], [place] | | | CARDIOLOGY | [address] | [address] | | + + + + + [...] + + + + + | [facility] | [address] | [place] [address] | | | ANY GUZMAN | [address] [...] [facility] | [address] | [place] [address] | | | ANY GUZMAN | [address] [...] | + + + + + | [facility] | [address] | [place] [address] | | | SERVICES, CORE | SHANNA [...] MEDICARE | MEDICA | xxxxxxxxxxx | | [phone] | [address] | Medica | | | RE A & | | 015-Pr | 1 | [address] | re | | | B | | esent | | [place], [place] | | | | | | | | [address] | | + +--------+ +--------+ + +--------+ | [employer] [place] | MUTUAL | xxxxxx-[id number] | | [phone] | [address]00 | Indemn | | MEDICARE SUPPL | OF | | 015-Pr | 0 | [employer] | ity | | | [place] | | esent | | [place] [employer] | | | | MEDICA | | | | [place] | | | | RE | | | | [id number] | | | | SUPPL | | [...] Person | Self | [birth year] | | [address] | | | al/Fam | | 1950 | [phone] | [place] [address] | | | rachid | | | [...]
--- OUTSIDE RECORDS SUMMARY | ~2019-12-27 | XMS | Encounter Summary ---
Demographics + + + | Address | [address] | | | [place] [address] | + + + | Home Phone [...] Team Providers + +------+ + | Care Higher Level Teaching Assistant Name | Role | Phone | [...] | [facility] [address] | [place], | management ) | | | | [facility] for | [place] [address] | | | | | Health and Healing, | [phone] | | | | | [address] | | | | | | [place], [place] | | | | | | [address] | | | | | | [phone] | | | +--------+ + + + [...] | | | | | | [place] [address] | | | | | | [phone] | | | | | | | | +--------+ + + + + | 01/14/ | Appointment | Hematology & | Onc, Gen [address] | | | 2019 | | Oncology | [place] | | | | | | [place] [address] | | +--------+ + + + + documented as of this encounter Visit Diagnoses Not on filedocumented in this encounter"
--- OUTSIDE RECORDS SUMMARY | ~2019-12-27 | XMS | Encounter Summary ---
Demographics + + + | Address | [address] | | | [place] [address] | + + + | Home Phone | | + + + | Preferred Language | Unknown | + + + | Marital Status | | + + + | Voodoo Affiliation | LUT | + + + [...] Team Providers + +------+ + | Care Urban Designer Name | Role | Phone | [...] Rd | | | | | | [place], [place] | | | | | | [address] | | | +--------+ + + + [...] | | | | | | [place] [address] | | | | | | [phone] | | | | | | | | +--------+ + + + + | 01/14/ | Appointment | Hematology & | Onc, Gen [address] | | | 2019 | | Oncology | [place] | | | | | | [place] [address] | | +--------+ + + + + documented as of this encounter Visit Diagnoses Not on filedocumented in this encounter"
--- OUTSIDE RECORDS SUMMARY | ~2019-12-27 | XMS | Encounter Summary ---
Demographics + + + | Address | [address] | | | [place] [address] | + + + | Home Phone [...] Team Providers + +------+ + | Care Repair Mechanic Name | Role | Phone | [...] | 08/25/ | Telephone | Pharmacy @ [facility] | Kimberli Larkin CPhT | Prior Authorization | | 2020 | | [address] | [address] | Request | | | | [place] Mailcode: | [place], | | | | | [facility] | [place] [address] | | | | | and [address], | | | | | | [address] | | | | | | [place], [place] | | | | | | [address] | | | +--------+ + + + [...] | | | | | | [place] [address] | | | | | | [phone] | | | | | | | | +--------+ + + + + | 01/14/ | Appointment | Hematology & | Onc, Gen [address] | | | 2019 | | Oncology | [place], | | | | | | [place] [address] | | +--------+ + + + + documented as of this encounter Visit Diagnoses Not on filedocumented in this encounter"
--- OUTSIDE RECORDS SUMMARY | ~2019-12-27 | XMS | Encounter Summary ---
Demographics + + + | Address | [address] | | | [place] [address] | + + + | Home Phone [...] Team Providers + +------+ + | Care Grocery Cashier Name | Role | Phone | [...] + + | 11/18/ | Video/TeleH | [facility] | [place], | New patient | | 2020 | ealth-Sched | at [facility] | Caat Felix MD | consultation | | | uled | [address] | [address] | | | | | Loop Physician's | [address] [place], | | | | | [address], 3rd floor | [place] [address] | | | | | [place], [place] | [phone] | | | | | [address] | | | | | | [phone] | | | +--------+ + + + [...] irtually located at the distant site of [facility]. The patient stated they were located at the [facility] [place] and were in the state of [place] at the time of the virtual visit. The n deanna of all additional persons participating in the virtual visit and their roles are: dadestinee Dangelo and Derek. I have spent a total of 107 minutes on this patient's care today. This time includes the v irtual visit [id number]-ur-[id number] time with the patient as well as [...] to spend first 100 days i n [place]. Transplant related mortality 20-30%. Risk of graft [...] if she were dann ck in a retirement. Knows she would need to spend 100 days in [place] and doesn't like th is- hoping for just 50. Feels that once she "gets through" the bad year of treatment she wou ld be OK again and would live to spend time with her grandchildren. 2. Memory concerns. Slow decline in short term memory, word finding, getting lost mid-sent ence over the last several years per daughter. Saw neurology in [facility], Dr. Victor Manuel Mendez aa in [...] bit cognitively and emoti onally. Her new commercial property administrator in [place], Dr. Rodriguez, switched her from zoloft to [...] finance assist lives in private home in [place], on [address], yes, but not [...] and having to spend many months in [place]. As her health d eclines, we can [...] Division of General Internal Medicine & Geriatrics [facility] documented in t his encounter Plan of [...] | | | | | [place], | | | | | | [place] [address] | | | | | | [phone] | | | | | | | | +--------+ + + + + | 01/14/ | Appointment | Hematology & | Onc, Gen [address] | | | 2020 | | Oncology | [place] | | | | | | [place] [address] | | +--------+ + + + + [...]
--- OUTSIDE RECORDS SUMMARY | ~2019-12-27 | XMS | Encounter Summary ---
Demographics + + + | Address | [address] | | | [place] [address] | + + + | Home Phone [...] + +------+ + | Care Director Of Clinical Trials Name | Role | Phone | + +------+ + | Oz Rodriguez MD | PCP | | + +------+ + Encounter Details +--------+ + + + + | Date | Type | Department | Care Team | Description | +--------+ + + + + | 10/23/ | Pharmacy | Pharmacy @ [facility] | | | | 2019 | Visit | [address] | | | | | | [address] [place] Mailcode: | | | | | | [facility] | | | | | | and [address], | | | | | | [address] | | | | | | [place], [place] | | | | | | [address] | | | +--------+ + + + [...] | | | | | | [place] [address] | | | | | | [phone] | | | | | | | | +--------+ + + + + | 01/14/ | Appointment | Hematology & | Onc, Gen [address] | | | 2019 | | Oncology | [place], | | | | | | [place] [address] | | +--------+ + + + + documented as of this encounter Visit Diagnoses Not on filedocumented in this encounter"
--- OUTSIDE RECORDS SUMMARY | ~2019-12-27 | XMS | Encounter Summary ---
Demographics + + + | Address | [address] | | | [place] [address] | + + + | Home Phone [...] Team Providers + +------+ + | Care Scientific Diver Name | Role | Phone | + [...] + + | 08/10/ | Hospital | [facility] | | | | 2020 | Encounter | Clinics at S | | | | | | [facility] [address] | | | | | | [facility] for | | | | | | Health and Healing, | | | | | | [address] | | | | | | [place], [place] | | | | | | [address] | | | | | | [phone] | | | +--------+ + + + [...] | | | | | | [place] [address] | | | | | | [phone] | | | | | | | | +--------+ + + + + | 01/14/ | Appointment | Hematology & | Onc, Gen [address] | | | 2020 | | Oncology | [place] | | | | | | [place] [address] | | +--------+ + + + + [...] | | | | PDT | syndrome) ([facility]) | results section. | + +--------+ + + + | [facility] - MAGNESIUM, | Routin | 08/11/2019 | Hypomagnesemia | Results for this | | PLASMA | e | 2:30 PM | | procedure are in the | | | | PDT | | results section. | + +--------+ + + + | [facility] - PHOSPHORUS, | Routin | 08/11/2019 | Pancytopenia ([facility]) | Results for this | | PLASMA | e | 2:30 PM | | procedure are in the | | | | PDT | | results section. | + +--------+ + + + | [facility] - LDH TOTAL, | Routin | 08/11/2019 | Pancytopenia ([facility]) | Results for this | | PLASMA [...] ANALYSIS (W/FISH) | | PDT | syndrome) ([facility]) | results section. | + +--------+ + [...] + + | [facility] | [address] | [place] [address] | | | SERVICES, | [address] [...] | [facility] | [address] | [place] [address] | | | MEGAN | [address] [...] By: | | DIAGNOSTIC | | | EMEF1P1(8Q2 | [employer] | | | | | [...] METASYSTEMS | | | | | | [id number] | | | LABORATORIE | | | (7Q31)(SO)/ | | | S | | | CEP7(SG) | | | | | + + + + + + | CELLS | 200 | | [facility] | | | SCORED | | | DIAGNOSTIC | | | METASYSTEMS | | | | | | [id number] | | | LABORATORIE | | | [...] | | | LABORATORIE | | | G)/AQO547(9 | | | S | | | [...] + + + + | FINN | [address] | [place] [address] | | | DIAGNOSTIC | [address] [...] Blood | | | | | | 2007;111:9416-3824. | | | | + + + + + + | DISCLAIMER | This test was developed | | [facility] | | | | and its performance | | DIAGNOSTIC | | | | characteristics | | | | | | determined by the [facility] | | LABORATORIE | | [...] | | | | | [employer] | | | | | | Pathologists (CAP). | | | | | | Vp Purchasing: | | | | | | Antony [...] + + + | FINN | [address] 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 | | | | | | p.Y242UGurwizvhqem in | | | | | | [...] U2AF1 | | | | | | p.M610CAlszq 157, which | | | | | [...] | | | | Ref Chaim DOCK8 OBSQ7502.2 | | | | | | c.494C>T hg19 chr9 | | | | | | 276547 490160 C T TP53 | | | | | | [id number] c.581T>A hg19 | | | | | | chr17 [id number] A | | | | | | T U2AF1 [id number] | | | | | | c.470A>G hg19 chr21 | | | | | | [id number] T C | | | | | [...] | | | | | GSKIP HAX1 [id number] | | | | | | HNRNPK [...] PRKCB | | | | | | KSNU01R PRPF8 PRPS1 | | | | | [...] | | | | | | SYNE1 ZHI4BQ9 TCF3 TCF4 | | | | | | TERC TERT TET2 TNFAIP3 | | | | | | EQONHL12 TP53 TRAF3 | | | | | [...] platform | | | | | | (PingTune 500 or 550). | | | | [...] | | | | | | 2016; 127(26):4582-626. | | | | | | 7. [...] (CKB): | | | | | | [email or web address]. | | | | | | CIViC: | | | | | | [email or web address]/home | | | | + + + + + + | DISCLAIMER | This test was developed | | FINN | | | | and its performance | | DIAGNOSTIC | | | | characteristics | | | | | | determined by the [facility] | | LABORATORIE | | [...] | | | | | (CLIA). The [facility] | | | | | | Diagnostics | | | | | | Laboratories are fully | | | | | | licensed by the state | | | | | | [place] under CLIA and | | | | | | are accredited by the | | | | | | [employer] | | | | | | Pathologists (CAP). | | | | | | Vp Purchasing: | | | | | | Antony [...] + + + | [facility] | [address] | [place] [address] | | | DIAGNOSTIC | [address] [...] | + + + + + | [employer] [facility] | [address] | [place] [address] | | | SERVICES, [place] [facility] | | | | | HEALTH [...] [facility] | [address] | [place] [address] | | | SERVICES, CORE | [address]ARK [...] LABORATORY | [address] | [place] [address] | | | SERVICES, CORE | PARK [...] SERVICES, | | | | | | [facility] | | | | | | [...] SERVICES, | | | | | | [facility] | | | | | | [...] | + + + + + | [employer] | [address] | [place] [address] | | | SERVICES, [place] [facility] | | | | | HEALTH [...] LABORATORY | [address] | [place] [address] | | | SERVICES, [place] [facility] | | | | | HEALTH [...] | + + + + + | [facility] | [address] | [place] [address] | | | SERVICES, [place] [facility] | | | | | HEALTH [...] [facility] | [address] | [place] [address] | | | [facility] | | | | [...] | | | | | evidence for [id number] | | | | | | fusion.Results [...] clinical | | | | | | shearing shed worker. | | | | + + + [...] | | | | determined by the [facility] | | LABORATORIE | | [...] | | | | | (CLIA). The [facility] | | | | | | Diagnostics | | | | | | Laboratories are fully | | | | | | licensed by the state of | | | | | | [place] under CLIA and | | | | | | are accredited by the | | | | | | [employer] | | | | | | [employer] ([employer]). | | | | | | Vp Purchasing: | | | | | | Antony Moore, | | | | | | M.D., | | | | | | Ph.D.Electronically | | | | | | reviewed and signed | | | | | | by:Rozina White, PhD, | | | | | | FACMGClinical | | | | | | [facility]un[facility]08/19/2019 | | | | | | at 2:03 PMReviewed and | | | | | | electronically signed by | | | | | | ROZINA ELAINE, | | | | | | ,[facility]08/19/2019 6:02 | | | | | | [...] [facility] | [address] | [place] [address] | | | DIAGNOSTIC | [address] [...] [facility] | [address] | [place] [address] | | | SERVICES, CORE | PARK [...] | + + + + + | [facility] | [address] | [place] [address] | | | SERVICES, CORE | SHANNA [...]
--- OUTSIDE RECORDS SUMMARY | ~2019-12-27 | XMS | Encounter Summary ---
Demographics + + + | Address | [address] | | | [place] [address] | + + + | Home Phone [...] Team Providers + +------+ + | Care Racquet Maker Name | Role | Phone | + +------+ + | Oz Rodriguez MD | PCP | | + +------+ + Encounter Details +--------+ + + + + | Date | Type | Department | Care Team | Description | +--------+ + + + + | 08/28/ | Pharmacy | Pharmacy @ [facility] | | | | 2020 | Visit | [address] | | | | | | [place] Mailcode: | | | | | | [facility] | | | | | | and [address], | | | | | | [address] | | | | | | [place], [place] | | | | | | [address] | | | +--------+ + + + [...] | | | | | [place], | | | | | | [place] [address] | | | | | | [phone] | | | | | | | | +--------+ + + + + | 01/14/ | Appointment | Hematology & | Onc, Gen [address] | | | 2020 | | Oncology | [address] [place], | | | | | | [place] [address] | | +--------+ + + + + documented as of this encounter Visit Diagnoses Not on filedocumented in this encounter"
--- OUTSIDE RECORDS SUMMARY | ~2019-12-27 | XMS | Encounter Summary ---
Demographics + + + | Address | [address] | | | [place] [address] | + + + | Home Phone [...] Team Providers + +------+ + | Care Health Technician Hearing Name | Role | Phone | + [...] | [place] [address] [place], | | | | | [facility] | [place] [address] | | | | | Health and Healing, | [phone] | | | | | [address] | | | | | | [place], [place] | | | | | | [address] | | | | | | [phone] | | | +--------+ + + + [...] | | | | | [place], | | | | | | [place] [address] | | | | | | [phone] | | | | | | | | +--------+ + + + + | 01/14/ | Appointment | Hematology & | Onc, Gen [address] | | | 2020 | | Oncology | [place], | | | | | | [place] [address] | | +--------+ + + + + documented as of this encounter Visit Diagnoses Not on filedocumented in this encounter"
--- OUTSIDE RECORDS SUMMARY | ~2019-12-27 | XMS | Encounter Summary ---
Demographics + + + | Address | [address] | | | [place] [address] | + + + | Home Phone | | + + + | Preferred Language | Unknown | + + + | Marital Status | | + + + | Denominational Affiliation | LUT | + + + [...] Team Providers + +------+ + | Care Zoo Veterinarian Name | Role | Phone | + +------+ + | SilverioMargarita crawford OIL REFINER | PCP | | + +------+ + Encounter Details +--------+--------+ + + + | Date | Type | Department | Care Team | Description | +--------+--------+ + + + | /03/ | Travel | | | | | [...] | | | | | | [place] [address] | | | | | | [phone] | | | | | | | | +--------+ + + + + | 01/14/ | Appointment | Hematology & | Onc, Gen [address] | | | 2019 | | Oncology | [place] | | | | | | [place] [address] | | +--------+ + + + + documented as of this encounter Visit Diagnoses Not on filedocumented in this encounter"
--- OUTSIDE RECORDS SUMMARY | ~2019-12-27 | XMS | Encounter Summary ---
Demographics + + + | Address | [address] | | | [place] [address] | + + + | Home Phone [...] + + + | Author | [facility] | + + + | Organization | [facility] | + + + [...] Team Providers + +------+ + | Care Boat Washer Name | Role | Phone | + +------+ + | Margarita Patterson | PCP | | + +------+ + Encounter Details +--------+ + + + + | Date | Type | Department | Care Team | Description | +--------+ + + + + | 12/11/ | Document-Balbir | [facility] | [address] | | | 2020 | tanja | [facility] | [facility] | | | | | [place] [address] [place], [place] | | | | | [facility] | [address] | | | | | Health and Healing, | | | | | | [address] | | | | | | [place], [place] | | | | | | [address] | | | | | | [phone] | | | +--------+ + + + [...] | | | | | [address] [address] [place], | | | | | | [place] [address] | | | | | | [phone] | | | | | | | | +--------+ + + + + | 01/14/ | Appointment | Hematology & | Onc, Gen [address] | | | 2020 | | Oncology | [place], | | | | | | [place] [address] | | +--------+ + + + + documented as of this encounter Visit Diagnoses Not on filedocumented in this encounter"
--- OUTSIDE RECORDS SUMMARY | ~2019-12-27 | XMS | Encounter Summary ---
Demographics + + + | Address | [address] | | | [place] [address] | + + + | Home Phone [...] Team Providers + +------+ + | Care Extrusion Technician Name | Role | Phone | + +------+ + | Margarita Patterson | PCP | | + +------+ + Encounter Details +--------+ + + + + | Date | Type | Department | Care Team | Description | +--------+ + + + + | 11/11/ | MyChart | [facility] | Sheri Rosado, | Geriatric Consult | | 2020 | Encounter | Clinics at S | [address] | | | | | [place] [address] | | | | | [place] for | [place], [place] | | | | | Health and Healing, | [address] | | | | | [address] | [phone] | | | | | [place], [place] | | | | | | [address] | | | | | | [phone] | | | +--------+ + + + [...] | | | | | [address] [address] [place], | | | | | | [place] [address] | | | | | | [phone] | | | | | | | | +--------+ + + + + | 01/14/ | Appointment | Hematology & | Onc, Gen [address] | | | 2020 | | Oncology | [place], | | | | | | [place] [address] | | +--------+ + + + + documented as of this encounter Visit Diagnoses Not on filedocumented in this encounter"
--- OUTSIDE RECORDS SUMMARY | ~2019-12-27 | XMS | Encounter Summary ---
Demographics + + + | Address | [address] | | | [place] [address] | + + + | Home Phone | | + + + | Preferred Language | Unknown | + + + | Marital Status | | + + + | Rastafarian Affiliation | LUT | + + + [...] Team Providers + +------+ + | Care Disc Recordist Name | Role | Phone | + +------+ + | Margarita Patterson | PCP | | + +------+ + Reason for Visit + + + | Reason | Comments | + + + | Research | Screening ECG Coordination | | Documentation | | + + + Encounter Details +--------+ + + + + | Date | Type | Department | Care Team | Description | +--------+ + + + + | 12/11/ | Telephone | [facility] | Daysi Mccauley MD | Research | | 2020 | | Clinics at S | [address] [facility] | Documentation | | | | [place] [address] | [place], | (Screening ECG | | | | [facility] for | [place] [address] | Coordination) | | | | Health and Healing, | [phone] | | | | | [address] | | | | | | [place], [place] | | | | | | [address] | | | | | | [phone] | | | +--------+ + + + [...] | | | | | | [place] [address] | | | | | | [phone] | | | | | | | | +--------+ + + + + | 01/14/ | Appointment | Hematology & | Onc, Gen [address] | | | 2019 | | Oncology | [place], | | | | | | [place] [address] | | +--------+ + + + + + +------+--------+ + + | Name | Type | Priori | Associated Diagnoses | Order Schedule | | | | ty | | | + +------+--------+ + + | 12 LEAD ECG | ECG | Routin | Myelofibrosis | Ordered: 12/12/2019 | | | | e | (HCC) | | + +------+--------+ + + documented as of this encounter Visit Diagnoses + + | Diagnosis | + + | Myelofibrosis (HCC) - Primary Myelofibrosis | + + documented in this encounter"
--- OUTSIDE RECORDS SUMMARY | ~2019-12-27 | XMS | Encounter Summary ---
Demographics + + + | Address | [address] | | | [place] [address] | + + + | Home Phone | | + + + | Preferred Language | Unknown | + + + | Marital Status | | + + + | Adventist Affiliation | LUT | + + + | Race | White | + + + | Ethnic Group | Not or | + + + Author + + + | Author | [facility] | + + + | Organization | [facility] | + + + | [...] Team Providers + +------+ + | Care Seam Hammerer Name | Role | Phone | + [...] + + | 12/22/ | Documentati | [facility] | Daysi Mccauley MD | Research | | 2020 | on | Clinics at S | [address] [facility] | Documentation | | | | [place] [address] [place], | | | | | [facility] | [place] [address] | | | | | Health and Healing, | [phone] | | | | | [address] | | | | | | [place], [place] | | | | | | [address] | | | | | | [phone] | | | +--------+ + + + [...] | | | | | | [place] [address] | | | | | | [phone] | | | | | | | | +--------+ + + + + | 01/14/ | Appointment | Hematology & | Onc, Gen [address] | | | 2019 | | Oncology | [place], | | | | | | [place] [address] | | +--------+ + + + + documented as of this encounter Visit Diagnoses Not on filedocumented in this encounter"
--- OUTSIDE RECORDS SUMMARY | ~2019-12-27 | XMS | Encounter Summary ---
Demographics + + + | Address | [address] | | | [place] [address] | + + + | Home Phone [...] + + + | Author | [facility] | + + + | Organization | [facility] | + + + | [...] Team Providers + +------+ + | Care Enchilada Maker Name | Role | Phone | [...] + + | 11/27/ | Telephone | [facility] | Daysi Mccauley MD | Change of medication | | 2019 | | Clinics at S | [address] | (Stop Levaquin, | | | | [place] [address] [place], | Start Cefpodoxime, | | | | [facility] | [place] [address] | Hold Antifungal | | | | Health and Healing, | [phone] | Today) | | | | Building [address] | | | | | | [place], [place] | | | | | | [address] | | | | | | [phone] | | | +--------+ + + + [...] | | | | | | [place] [address] | | | | | | [phone] | | | | | | | | +--------+ + + + + | 01/14/ | Appointment | Hematology & | Onc, Gen [address] | | | 2020 | | Oncology | [place] | | | | | | [place] [address] | | +--------+ + + + + documented as of this encounter Visit Diagnoses Not on filedocumented in this encounter"
--- OUTSIDE RECORDS SUMMARY | ~2019-12-27 | XMS | Encounter Summary ---
Demographics + + + | Address | [address] | | | [place] [address] | + + + | Home Phone [...] Author | [facility] | + + + | Organization | [facility] | + + + | Address | [...] Team Providers + +------+ + | Care Wet Sander Name | Role | Phone | + +------+ + | Oz Rodriguez MD | PCP | | + +------+ + Encounter Details +--------+ + + + + | Date | Type | Department | Care Team | Description | +--------+ + + + + | 11/19/ | Pharmacy | Pharmacy @ [facility] | | | | 2020 | Visit | [address] | | | | | | [place] Mailcode: | | | | | | [facility] | | | | | | and [address], | | | | | | [address] 2 | | | | | | [place], [place] | | | | | | [address] | | | +--------+ + + + [...] | | | | | [place], | | | | | | [place] [address] | | | | | | [phone] | | | | | | | | +--------+ + + + + | 01/14/ | Appointment | Hematology & | Onc, Gen [address] | | | 2020 | | Oncology | [place], | | | | | | [place] [address] | | +--------+ + + + + documented as of this encounter Visit Diagnoses Not on filedocumented in this encounter"
--- OUTSIDE RECORDS SUMMARY | ~2019-12-27 | XMS | Encounter Summary ---
Demographics + + + | Address | [address] | | | [place] [address] | + + + | Home Phone [...] Team Providers + +------+ + | Care Child Monitor Name | Role | Phone | + +------+ + | Oz Rodriguez MD | PCP | | + +------+ + Encounter Details +--------+ + + + + | Date | Type | Department | Care Team | Description | +--------+ + + + + | 12/15/ | Horticulture Instructor | [facility] | Daysi Mccauley MD | Myelofibrosis (HCC) | | 2020 | | Clinics at S | [address] | (Primary Dx); | | | | [place] [address] | [place] [facility], | Personal history of | | | | [facility] for | [place] [address] | diseases of the | | | | Health and Healing, | [phone] | blood and | | | | Building [address] | | blood-forming organs | | | | [place], [place] | | and certain | | | | [address] | | disorders involving | | | | [phone] | | the immune mechanism | | [...] | | | | | | [place] [address] | | | | | | [phone] | | | | | | | | +--------+ + + + + | 01/14/ | Appointment | Hematology & | Onc, Gen [address] | | | 2019 | | Oncology | [place], | | | | | | [place] [address] | | +--------+ + + + + [...] | [facility] | | considered for monitoring prison glycemic control in patients with: | LABORATORY [...] [facility] | [address] | [place] [address] | | | SERVICES, SPECIAL | PARK [...]
--- OUTSIDE RECORDS SUMMARY | ~2019-12-27 | XMS | Encounter Summary ---
Demographics + + + | Address | [address] | | | [place] [address] | + + + | Home Phone [...] + + | Author | [facility] | + + + | Organization | [facility] | + + + | [...] Team Providers + +------+ + | Care Container Filler Name | Role | Phone | + +------+ + | Oz Rodriguez MD | PCP | | + +------+ + Encounter Details +--------+ + + + + | Date | Type | Department | Care Team | Description | +--------+ + + + + | 11/19/ | Pharmacy | [facility] | | | | 2020 | Visit | [address] | | | | | | [address] | | | | | | [place] [address] | | | | | | [phone] | | | +--------+ + + + [...] | | | | | | [place] [address] | | | | | | [phone] | | | | | | | | +--------+ + + + + | 01/14/ | Appointment | Hematology & | Onc, Gen [address] | | | 2019 | | Oncology | [place] | | | | | | [place] [address] | | +--------+ + + + + documented as of this encounter Visit Diagnoses Not on filedocumented in this encounter"
--- OUTSIDE RECORDS SUMMARY | ~2019-12-27 | XMS | Encounter Summary ---
Demographics + + + | Address | [address] | | | [place] [address] | + + + | Home Phone [...] Team Providers + +------+ + | Care Toys Inspector Name | Role | Phone | + [...] | | | [place] [address] | [facility] | | | | | [facility] for | [place], [place] | | | | | Health and Healing, | [address] | | | | | [address] | | | | | | [place], [place] | | | | | | [address] | | | | | | [phone] | | | +--------+ + + + [...] | | | | | | [place] [address] | | | | | | [phone] | | | | | | | | +--------+ + + + + | 01/14/ | Appointment | Hematology & | Onc, Gen [address] | | | 2019 | | Oncology | [place], | | | | | | [place] [address] | | +--------+ + + + + documented as of this encounter Visit Diagnoses Not on filedocumented in this encounter"
--- OUTSIDE RECORDS SUMMARY | ~2019-12-27 | XMS | Encounter Summary ---
Demographics + + + | Address | [address] | | | [place] [address] | + + + | Home Phone [...] Team Providers + +------+ + | Care Plate Former Name | Role | Phone | + +------+ + | SilverioMargarita crawford ETL APPLICATION DEVELOPER | PCP | | + +------+ + [...] | | | | | | [place] [address] | | | | | | [phone] | | | | | | | | +--------+ + + + + | 01/14/ | Appointment | Hematology & | Onc, Gen [address] | | | 2019 | | Oncology | [place], | | | | | | [place] [address] | | +--------+ + + + + documented as of this encounter Visit Diagnoses Not on filedocumented in this encounter"
--- OUTSIDE RECORDS SUMMARY | ~2019-12-27 | XMS | Encounter Summary ---
Demographics + + + | Address | [address] | | | [place] [address] | + + + | Home Phone [...] Team Providers + +------+ + | Care Wax Pattern Assembler Name | Role | Phone | + +------+ + | SilverioMargarita crawford DIRECTOR OF LEADERSHIP DEVELOPMENT | PCP | | + +------+ + Encounter Details +--------+--------+ + + + | Date | Type | Department | Care Team | Description | +--------+--------+ + + + | 09/01/ | Travel | | | | | [...] | | | | | | [place] [address] | | | | | | [phone] | | | | | | | | +--------+ + + + + | 01/14/ | Appointment | Hematology & | Onc, Gen [address] | | | 2019 | | Oncology | [place] | | | | | | [place] [address] | | +--------+ + + + + documented as of this encounter Visit Diagnoses Not on filedocumented in this encounter"
--- OUTSIDE RECORDS SUMMARY | ~2019-12-27 | XMS | Encounter Summary ---
Demographics + + + | Address | [address] | | | [place] [address] | + + + | Home Phone [...] Providers + +------+ + | Care Pricing Actuary Name | Role | Phone | + [...] | [place] [address] [place], | | | | | [facility] | [place] [address] | | | | | Health and Healing, | [phone] | | | | | [address] | | | | | | [place], [place] | | | | | | [address] | | | | | | [phone] | | | +--------+ + + + [...] best way to contact her is through Access Mobile. Please note, Kathrine is off on Wednesdays, but there are other members of the Oncology care team who will be available to assist you. Please call the clinic at [phone] for leigh ko. Kathrine Sheets, MSN-renal social worker/Oncology Nurse Coordinator [facility] [place] | [facility] [address] [place] [address] Clinic: [phone] For further questions or concerns: Gnodalhart: We encourage patients to use Access Mobile as the primary mode of communication. Feel fr ee to message us on MyChart with any questions that may arise. Please note that MyChart me ssages are not monitored on evenings, weekends, or holidays. If you have urgent symptoms or questions during those times, please call [phone] and ask to have the BMT Person On Ca ll paged. Sunday through Sunday from 8:00 am to 5:00 pm, if you have urgent questions or sy mptoms, please call our title assistant for immediate assistance at [phone] or [phone]. [phone] Appointments/Questions/Follow-up: If you have any questions about appointments or need to c all to make a follow up appointment, please call the front desk associate at [phone]. Symptoms/Medical Questions: If you develop any symptoms or have any urgent medical question s, please call the Triage Nurse at [phone] or [phone] (Sunday - Sunday 8:30-4:30). After hours, please call [phone] and ask to have the BMT Person Stained Glass Glazier Helper pag ed. Feedback: We value and appreciate [...] provider located at the distant site of [facility]. T he patient stated they were [...] she was seen in the ED in [place], [place] for dyspnea. Fou nd to be [...] with Dr. Sherri chamberlain at [facility]. She had been doing well for [...] found in m yeloid malignancies such as [id number] are recommended. ECHO Labs, imaging and pathology [...] record ed by Mor Coates. Daysi Mccauley, Molder Machine Tender, Section for Hematologic Malignancies. [facility] Swathi Le MA - 12/2019 3:00 PM PDTPt name and confirmed Speaking directly with pt: Yes If no, then to whom and why: Confirm pt has Access Mobile Account: Yes If no, send email link via Wattics and provide support information listed below. Directive Status Reviewed: No If no, explain: Allergies Reviewed: Yes If no, explain: Medications Reviewed: Yes If no, explain: Pharmacy Reviewed: Yes If no, explain: Pt reported vitals obtained: No Pt questions for provider: none Pt asked to log into Access Mobile, locate appointment, and test equipment after call. Pt given instruction to call back or reach out to support for any questions or issues. Patient informed that: ? They will be contacted within 20 minutes + or - of their scheduled appt time. ? At appt time, they will need to follow the steps outlined in the "[facility] Virtual Visits" gu aryan at [email or web address]/[email or web address] ? If they experience audio issues during visit, they should stay on the videocall and expec t to receive a telephone call for the audio. Access Mobile Support: 8a-5p [phone] [facility]/SensorTranhart Garrett delgado in this encounter Plan of [...] | | | | | [place], | | | | | | [place] [address] | | | | | | [phone] | | | | | | | | +--------+ + + + + | 01/14/ | Appointment | Hematology & | Onc, Gen [address] | | | 2019 | | Oncology | [place], | | | | | | [place] [address] | | +--------+ + + + + documented as of this encounter Visit Diagnoses + + | Diagnosis | + + | MF (myelofibrosis) (HCC) - Primary Myelofibrosis | + + documented in this encounter
--- OUTSIDE RECORDS SUMMARY | ~2019-12-27 | XMS | Encounter Summary ---
Demographics + + + | Address | [address] | | | [place] [address] | + + + | Home Phone [...] Team Providers + +------+ + | Care Housekeeping Associate Name | Role | Phone | [...] | | | | | [place] for | [place], [place] | | | | | Health and Healing, | [address] | | | | | [address] | [phone] | | | | | [place], [place] | | | | | | [address] | | | | | | [phone] | | | +--------+ + + + [...] | | | | | [place], | | | | | | [place] [address] | | | | | | [phone] | | | | | | | | +--------+ + + + + | 01/14/ | Appointment | Hematology & | Onc, Gen [address] | | | 2020 | | Oncology | [place], | | | | | | [place] [address] | | +--------+ + + + + documented as of this encounter Visit Diagnoses Not on filedocumented in this encounter"
--- OUTSIDE RECORDS SUMMARY | ~2019-12-27 | XMS | Encounter Summary ---
Demographics + + + | Address | [address] | | | [place] [address] | + + + | Home Phone | | + + + | Preferred Language | Unknown | + + + | Marital Status | | + + + | Yarsani Affiliation | LUT | + + + [...] Team Providers + +------+ + | Care Cap Blocker Name | Role | Phone | + [...] | Clinics at S | [address] [facility] | management | | | | [place] [address] [place], | | | | | [facility] | [place] [address] | | | | | Health and Healing, | [phone] | | | | | [address] | | | | | | [place], [place] | | | | | | [address] | | | | | | [phone] | | | +--------+ + + + [...] | | | | | | [place] [address] | | | | | | [phone] | | | | | | | | +--------+ + + + + | 01/14/ | Appointment | Hematology & | Onc, Gen [address] | | | 2019 | | Oncology | [place], | | | | | | [place] [address] | | +--------+ + + + + documented as of this encounter Visit Diagnoses Not on filedocumented in this encounter"
--- OUTSIDE RECORDS SUMMARY | ~2019-12-27 | XMS | Encounter Summary ---
Demographics + + + | Address | [address] | | | [place] [address] | + + + | Home Phone [...] Team Providers + +------+ + | Care Security Professionals Name | Role | Phone | + +------+ + | SilverioMargarita crawford CIGAR TOBACCO REHANDLER | PCP | | + +------+ + [...] | | | | | | [place] [address] | | | | | | [phone] | | | | | | | | +--------+ + + + + | 01/14/ | Appointment | Hematology & | Onc, Gen [address] | | | 2019 | | Oncology | [place] | | | | | | [place] [address] | | +--------+ + + + + documented as of this encounter Visit Diagnoses Not on filedocumented in this encounter"
--- OUTSIDE RECORDS SUMMARY | ~2019-12-27 | XMS | Encounter Summary ---
Demographics + + + | Address | [address] | | | [place] [address] | + + + | Home Phone [...] Team Providers + +------+ + | Care Boats Renter Name | Role | Phone | + [...] | [facility] [address] [place], | | | | | [facility] | [place] [address] | | | | | Health and Healing, | [phone] | | | | | [address] | | | | | | [place], [place] | | | | | | [address] | | | | | | [phone] | | | +--------+ + + + [...] | | | | | [place], | | | | | | [place] [address] | | | | | | [phone] | | | | | | | | +--------+ + + + + | 01/14/ | Appointment | Hematology & | Onc, Gen [address] | | | 2020 | | Oncology | [place], | | | | | | [place] [address] | | +--------+ + + + + documented as of this encounter Visit Diagnoses Not on filedocumented in this encounter"
--- OUTSIDE RECORDS SUMMARY | ~2019-12-27 | XMS | Encounter Summary ---
Demographics + + + | Address | [address] | | | [place] [address] | + + + | Home Phone [...] + + + + + | Cherelle Sliva | ECON | [place], | | + + + + + Care Team Providers + +------+ + | Care Supervisor Shipfitters Name | Role | Phone | + [...] | [address] [facility] | Documentation | | | | [address] [place], | | | | | [facility] | [place] [address] | | | | | Health and Healing, | [phone] | | | | | Building 2 | | | | | | [place], [place] | | | | | | [address] | | | | | | [phone] | | | +--------+ + + + [...] | | | | | | [place] [address] | | | | | | [phone] | | | | | | | | +--------+ + + + + | 01/14/ | Appointment | Hematology & | Onc, Gen [address] | | | 2019 | | Oncology | [place], | | | | | | [place] [address] | | +--------+ + + + + documented as of this encounter Visit Diagnoses Not on filedocumented in this encounter"
--- OUTSIDE RECORDS SUMMARY | ~2019-12-27 | XMS | Encounter Summary ---
Demographics + + + | Address | [address] | | | [place] [address] | + + + | Home Phone [...] Team Providers + +------+ + | Care Stone Grader Name | Role | Phone | + [...] | Clinics at S | [address] [facility] | Documentation | | | | [address] | [address] [place], | (Screening ECG | | | | [facility] for | [place] [address] | Coordination) | | | | Health and Healing, | [phone] | | | | | Building 2 | | | | | | [place], [place] | | | | | | [address] | | | | | | [phone] | | | +--------+ + + + [...] | | | | | | [place] [address] | | | | | | [phone] | | | | | | | | +--------+ + + + + | 01/14/ | Appointment | Hematology & | Onc, Gen [address] | | | 2019 | | Oncology | [place], | | | | | | [place] [address] | | +--------+ + + + + [...]
--- OUTSIDE RECORDS SUMMARY | ~2019-12-27 | XMS | Encounter Summary ---
Demographics + + + | Address | [address] | | | [place] [address] | + + + | Home Phone [...] Team Providers + +------+ + | Care Cat Tender Name | Role | Phone | [...] | Clinics at S | [address] [facility] | Documentation | | | | [address] [place], | | | | | [facility] | [place] [address] | | | | | Health and Healing, | [phone] | | | | | Building 2 | | | | | | [place], [place] | | | | | | [address] | | | | | | [phone] | | | +--------+ + + + [...] | | | | | | [place] [address] | | | | | | [phone] | | | | | | | | +--------+ + + + + | 01/14/ | Appointment | Hematology & | Onc, Gen [address] | | | 2019 | | Oncology | [place], | | | | | | [place] [address] | | +--------+ + + + + documented as of this encounter Visit Diagnoses Not on filedocumented in this encounter"
--- OUTSIDE RECORDS SUMMARY | ~2019-12-27 | XMS | Encounter Summary ---
Demographics + + + | Address | [address] | | | [place] [address] | + + + | Home Phone [...] | + + + + + | Chreelle Silva | ECON | [place], | | + + + + + Care Team Providers + +------+ + | Care Dentist Name | Role | Phone | + +------+ + | Oz Rodriguez MD | PCP | | + +------+ + Encounter Details +--------+ + + + + | Date | Type | Department | Care Team | Description | +--------+ + + + + | 10/19/ | Pharmacy | Pharmacy @ [facility] | | | | 2019 | Visit | [address] | | | | | | [place] Mailcode: | | | | | | [facility] | | | | | | and [place], | | | | | | Building 2 | | | | | | [place], [place] | | | | | | [address] | | | +--------+ + + + [...] | | | | | | [place] [address] | | | | | | [phone] | | | | | | | | +--------+ + + + + | 01/14/ | Appointment | Hematology & | Onc, Gen [address] | | | 2019 | | Oncology | [place], | | | | | | [place] [address] | | +--------+ + + + + documented as of this encounter Visit Diagnoses Not on filedocumented in this encounter"
--- OUTSIDE RECORDS SUMMARY | ~2019-12-27 | XMS | Encounter Summary ---
Demographics + + + | Address | [address] | | | [place] [address] | + + + | Home Phone [...] Team Providers + +------+ + | Care Demolition Specialist Name | Role | Phone | + +------+ + | Margarita Patterson | PCP | | + +------+ + Encounter Details +--------+ + + + + | Date | Type | Department | Care Team | Description | +--------+ + + + + | 12/01/ | Bi Manager | [facility] | Daysi Mccauley MD | MF (myelofibrosis) | | 2020 | | Clinics at S | [address] | (HCC) (Primary Dx) | | | | [address] [place], | | | | | [facility] | [place] [address] | | | | | Health and Healing, | [phone] | | | | | Building 2 | | | | | | [place], [place] | | | | | | [address] | | | | | | [phone] | | | +--------+ + + + [...] | | | | | [address] [place], | | | | | | [place] [address] | | | | | | [phone] | | | | | | | | +--------+ + + + + | 01/14/ | Appointment | Hematology & | Onc, Gen [address] | | | 2019 | | Oncology | [place], | | | | | | [place] [address] | | +--------+ + + + + [...] 12/02/2019 | | | | e | ([facility]) | | + +------+--------+ + + documented [...] [facility] | [address] | [place], [place] | | | CARDIOLOGY | [address] | [address] | | + + + + + documented in this encounter Visit Diagnoses + + | Diagnosis | + + | MF (myelofibrosis) (HCC) - Primary Myelofibrosis | + + documented in this encounter"
--- OUTSIDE RECORDS SUMMARY | ~2019-12-27 | XMS | Encounter Summary ---
Demographics + + + | Address | [address] | | | [place] [address] | + + + | Home Phone [...] Team Providers + +------+ + | Care Cadd Manager Name | Role | Phone | + +------+ + | Margarita Patterson | PCP | | + +------+ + Encounter Details +--------+ + + + + | Date | Type | Department | Care Team | Description | +--------+ + + + + | 08/21/ | Bait Painter | [facility] | Daysi Mccauley MD | | | 2019 | | [facility] at | [address] | | | | | [address] [place], | | | | | [facility] | [place] [address] | | | | | Health and Healing, | [phone] | | | | | Building 2 | | | | | | [place], [place] | | | | | | [address] | | | | | | [phone] | | | +--------+ + + + [...] | | | | | [address] [place], | | | | | | [place] [address] | | | | | | [phone] | | | | | | | | +--------+ + + + + | 01/14/ | Appointment | Hematology & | Onc, Gen [address] | | | 2020 | | Oncology | [place], | | | | | | [place] [address] | | +--------+ + + + + documented as of this encounter Visit Diagnoses Not on filedocumented in this encounter"
--- OUTSIDE RECORDS SUMMARY | ~2019-12-27 | XMS | Encounter Summary ---
Demographics + + + | Address | [address] | | | [place] [address] | + + + | Home Phone [...] Team Providers + +------+ + | Care Internet Marketing Assistant Name | Role | Phone | [...] (Office visit vs | | | | [facility] [address] | Virtual visit) | | | | [facility] for | [place], [place] | | | | | Health and Healing, | [address] | | | | | [facility] 2 | [phone] | | | | | [place], [place] | | | | | | [address] | | | | | | [phone] | | | +--------+ + + + [...] | | | | | [address]anna [address] [place], | | | | | | [place] [address] | | | | | | [phone] | | | | | | | | +--------+ + + + + | 01/14/ | Appointment | Hematology & | Onc, Gen [address] | | | 2019 | | Oncology | [place], | | | | | | [place] [address] | | +--------+ + + + + documented as of this encounter Results [facility] - COMPLETE METABOLIC SET (11/10/2019 11:58 AM [...] | | | LABORATORY | | | TAJIK | | | SERVICES, | | | [...] MDRD equation recommended by the National | [facility] | | Kidney Disease Education Program. Estimated [...] | + + + + + | [facility] | [address] | [place] [address] | | | SERVICES, [place] [facility] | | | | | HEALTH [...] [facility] | [address] | [place] [address] | | | SERVICES, ANY | [address] | | | + + + + + documented in this encounter Visit Diagnoses + + | Diagnosis | + + | MF (myelofibrosis) (HCC) - Primary Myelofibrosis | + + documented in this encounter"
--- OUTSIDE RECORDS SUMMARY | ~2019-12-27 | XMS | Encounter Summary ---
Demographics + + + | Address | [address] | | | [place] [address] | + + + | Home Phone [...] Team Providers + +------+ + | Care Bulk Coolers Installer Name | Role | Phone | [...] | [address] [place], | | | | | [facility] | [place] [address] | | | | | Health and Healing, | [phone] | | | | | [facility] 2 | | | | | | [place], [place] | | | | | | [address] | | | | | | [phone] | | | +--------+ + + + [...] | | | | | | [place] [address] | | | | | | [phone] | | | | | | | | +--------+ + + + + | 01/14/ | Appointment | Hematology & | Onc, Gen [address] | | | 2019 | | Oncology | [place], | | | | | | [place] [address] | | +--------+ + + + + documented as of this encounter Visit Diagnoses Not on filedocumented in this encounter"
--- OUTSIDE RECORDS SUMMARY | ~2019-12-27 | XMS | Encounter Summary ---
Demographics + + + | Address | [address] | | | [place] [address] | + + + | Home Phone | | + + + | Preferred Language | Unknown | + + + | Marital Status | | + + + | Evangelical Affiliation | Unknown | + + + | Race | Unknown | + + + | Ethnic Group | Unknown | + + + Author + + + | Author | [facility] | | | and Demetriusana | + + + | Organization | [facility] | | [...] Providers + +------+ + | Care Tree Shear Operator Name | Role | Phone | + +------+ + | No, Physician | PCP | Unavailable | + +------+ + Reason for Visit + +--------+ + | Reason | Onset | Comments | | | Date | | + +--------+ + | Follow-up | 08/03/ | Reschedule | | | 2020 | | + +--------+ + Encounter Details +--------+ + + + + | Date | Type | Department | Care Team | Description | +--------+ + + + + | 08/03/ | Telephone | [facility] | Victor Manuel Amaya, | Follow-up | | 2020 | | NEUROLOGY [address] | MD [address] | (Reschedule ) | | | | [address] | [address] | | | | | [place], [place] | [place] [address] | | | | | [address] | [phone] | | | | | [phone] | | | +--------+ + + + [...] this encounter Miscellaneous Notes Telephone Encounter - Radha Womack - 08/04/2019 3:59 PM Mary, is calling [facility] Follow-up (Reschedule ) and would like a call back. Additional Call Details: Calling to reschedule follow up and memory test. Please call the home number listed If this is a symptom based call, was patient offered triage? Not Applicable If this is a symptom based call and you were unable to immediately transfer the call to a shila gar supervisor unloading was caller made aware that if at any time she feels it is an emergency they sh ould call 911 or go to the nearest emergency room? not applicable documented in this encounter Plan of Treatment Not on filedocumented as of this encounter Visit Diagnoses Not on filedocumented in this encounter"
--- OUTSIDE RECORDS SUMMARY | ~2019-12-27 | XMS | Encounter Summary ---
Demographics + + + | Address | [address] | | | [place] [address] | + + + | Home Phone [...] Team Providers + +------+ + | Care Nremt Name | Role | Phone | + +------+ + | Margarita Patterson | PCP | | + +------+ + Encounter Details +--------+ + + + + | Date | Type | Department | Care Team | Description | +--------+ + + + + | 08/07/ | Production Machine Shop Supervisor | [facility] | Valarie Levi, | Pancytopenia (HCC) | | 2020 | | Clinics at S | PA-C [address] | (Primary Dx); | | | | [address] | Finding of other | | | | [facility] for | [facility], [place] | specified | | | | Health and Healing, | [address] | substances, not | | | | Building [address] | [phone] | normally found in | | | | [place], [place] | | blood | | | | [address] | | | | | | [phone] | | | +--------+ + + + [...] | | | | | | [place] [address] | | | | | | [phone] | | | | | | | | +--------+ + + + + | 01/14/ | Appointment | Hematology & | Onc, Gen [address] | | | 2019 | | Oncology | [place] | | | | | | [place] [address] | | +--------+ + + + + documented as of this encounter Visit Diagnoses + + | Diagnosis | + + | Pancytopenia (HCC) - Primary Other pancytopenia | + + | Finding of other specified substances, not normally found in blood | + + documented in this encounter"
--- OUTSIDE RECORDS SUMMARY | ~2019-12-27 | XMS | Encounter Summary ---
Demographics + + + | Address | [address] | | | [place] [address] | + + + | Home Phone [...] Team Providers + +------+ + | Care Veneer Marker Name | Role | Phone | + +------+ + | SilverioMargarita crawford PHARMACY CLINICAL SPECIALIST | PCP | | + +------+ [...] | | | | | | [place] [address] | | | | | | [phone] | | | | | | | | +--------+ + + + + | 01/14/ | Appointment | Hematology & | Onc, Gen [address] | | | 2019 | | Oncology | [place] | | | | | | [place] [address] | | +--------+ + + + + documented as of this encounter Visit Diagnoses Not on filedocumented in this encounter"
--- OUTSIDE RECORDS SUMMARY | ~2019-12-27 | XMS | Encounter Summary ---
Demographics + + + | Address | [address] | | | [place] [address] | + + + | Home Phone [...] Team Providers + +------+ + | Care Solar Photovoltaic Installer Name | Role | Phone | [...] | (NURSE NAVIGATION- | | | | [facility] [address] | follow-up | | | | [facility] for | [place], [place] | assessment/call) | | | | Health and Healing, | [address] | | | | | [facility] 2 | [phone] | | | | | [place], [place] | | | | | | [address] | | | | | | [phone] | | | +--------+ + + + [...] | | | | | | [place] [address] | | | | | | [phone] | | | | | | | | +--------+ + + + + | 01/14/ | Appointment | Hematology & | Onc, Gen [address] | | | 2019 | | Oncology | [place] | | | | | | [place] [address] | | +--------+ + + + + documented as of this encounter Visit Diagnoses Not on filedocumented in this encounter"
--- OUTSIDE RECORDS SUMMARY | ~2019-12-27 | XMS | Encounter Summary ---
Demographics + + + | Address | [address] | | | [place] [address] | + + + | Home Phone [...] Team Providers + +------+ + | Care Feed Management Advisor Name | Role | Phone | + [...] Rd | | | | | [facility] for | [place], [place] | | | | | Health and Healing, | [address] | | | | | [facility] 2 | [phone] | | | | | [place], [place] | | | | | | [address] | | | | | | [phone] | | | +--------+ + + + [...] | | | | | | [place] [address] | | | | | | [phone] | | | | | | | | +--------+ + + + + | 01/14/ | Appointment | Hematology & | Onc, Gen [address] | | | 2019 | | Oncology | [place] | | | | | | [place] [address] | | +--------+ + + + + documented as of this encounter Visit Diagnoses Not on filedocumented in this encounter"
--- OUTSIDE RECORDS SUMMARY | ~2019-12-27 | XMS | Encounter Summary ---
Demographics + + + | Address | [address] | | | [place] [address] | + + + | Home Phone [...] Providers + +------+ + | Care Extrusion Die Repair Manager Name | Role | Phone | + +------+ + | Oz Rodriguez MD | PCP | | + +------+ + Encounter Details +--------+ + + + + | Date | Type | Department | Care Team | Description | +--------+ + + + + | 08/17/ | Document-Sc | UNKNOWN DEPARTMENT | Other, Faculty | | | 2020 | annsabas | [address] [facility] | [phone] | | | | | [address] | | | | | | [place], [place] | | | | | | [address] | | | +--------+ + + + [...] | | | | | [address]ise [address] [place], | | | | | | [place] [address] | | | | | | [phone] | | | | | | | | +--------+ + + + + | 01/14/ | Appointment | Hematology & | Onc, Gen [address] | | | 2020 | | Oncology | [place], | | | | | | [place] [address] | | +--------+ + + + + documented as of this encounter Visit Diagnoses Not on filedocumented in this encounter"
--- OUTSIDE RECORDS SUMMARY | ~2019-12-27 | XMS | Encounter Summary ---
Demographics + + + | Address | [address] | | | [place] [address] | + + + | Home Phone [...] Providers + +------+ + | Care Flame Burner Name | Role | Phone | + [...] Authorized | | Internal | Diagnoses | Rosado, | Angel, | | | | Medicine | MF | Sheri Pereyra MD | Cata Felix, | | | | | (myelofibros | [address] | | | | | is) ([facility]) | [address] | [address] | | | | | Memory | [address]anna [address] | [address]anna [address] | | | | | change | [place], [place] | [place], [place] | | | | | Procedures | [address] | [address] | | | | | CONSULT TO | Phone: | Phone: | | | | | INTERNAL | [phone] | [phone] | | | | | MEDICINE - | Fax: | Fax: | | | | | GERIATRICS | [phone] | [phone] | + +--------+ + + + + Diagnostic Testing (Routine) + +--------+ + + + + | Status | Reason | Specialty | Diagnoses / | Referred By | Referred To | | | | | Procedures | Contact | Contact | + +--------+ + + + + | New Request | | Cardiology | Diagnoses | [place], | [place] | | | | | MF | Christy Ramires MD | Health & | | | | | (myelofibros | [address] | [employer] | | | | | is) ([facility]) | [address] | [address] [facility] | | | | | Procedures | Rd | [facility] | | | | | TRANSTHORACI | [place], [place] | ROAD | | | | | C | | [place], [place] | | | | | ECHOCARDIOGR | Phone: | | | | | | AM, ADULT | [phone] | Phone: | | | | | | Fax: | [phone] | | | | | | [phone] | | + +--------+ + + + + Diagnostic Testing (Routine) + +--------+ + + + + | Status | Reason | Specialty | Diagnoses / | Referred By | Referred To | | | | | Procedures | Contact | Contact | + +--------+ + + + + | New Request | | Radiology | Diagnoses | [place], | [place] | | | | | MF | Christy Ramires MD | Health & | | | | | (myelofibros | [address] [facility] | [employer] | | | | | is) ([facility]) | [facility] | [address] [facility] | | | | | Procedures | Rd | [facility] | | | | | MRI ABDOMEN | [place], [place] | ROAD | | | | | WO CONTRAST | | [place], [place] | | | | | | Phone: | [address] | | | | | | [phone] | Phone: | | | | | | Fax: | [phone] | | | | | | [phone] | | + +--------+ + + + + Encounter Details +--------+ + + + + | Date | Type | Department | Care Team | Description | +--------+ + + + + | 11/09/ | Sheet Heater | [facility] | Christy Wilson MD | MF (myelofibrosis) | | 2020 | | Clinics at S | [address] | (HCC) (Primary Dx); | | | | [facility] [address] | [address] [place], | Adverse effect of | | | | [facility] for | [place] [address] | chemotherapy, | | | | Health and Healing, | [phone] | initial encounter ; | | | | Building [address] | | On antineoplastic | | | | [place], [place] | | chemotherapy ; | | | | [address] | | Memory change | | | | [phone] | | | +--------+ + + + [...] | Visit | Malignancy | [address] | | | | | | [place], | | | | | | [place] [address] | | | | | | [phone] | | | | | | | | +--------+ + + + + | 01/14/ | Appointment | Hematology & | Onc, Gen [address] | | | 2019 | | Oncology | [place], | | | | | | [place] [address] | | +--------+ + + + + [...] Performed At | + -+ + | [facility] | [facility] | | [facility] [address] | CARDIOLOGY | | [place], [place] [address] Ph: | | | Pt Name: LANETTE PICKETT | | | Study Date/Time 12/09/2019 / 1:47:19 PMMRN: [id number] | | | Most recent prior: 08/06/2019Acc #: [id number] | | | No. previous echos: 1DOB: 1950 69 years Heart Rate: | | | 59 bpmHeight: 65.9 in Blood Pressure: | | | 102/65 mm/HgWeight: 212.0 lb Gender: | | | FBSA: 2.05 m | | | Order ID: [id number] Study | | | [facility] Nadia HENRIQUEZ, RDCSReferring Provider: | | | CHRISTY Roland Performed: 2D, Color flow, Spectral Doppler, | | | Strain and For the precise quantification of LV volumes and ejection | | | fraction, online 3-D reconstruction was clinically indicated and | | | performed under the concurrent supervision of the interpreting | | | workers compensation analyst.Study Quality: Fair.Exam Indication: Research; [place] | | | [id number]: Myelofibrosis Patient history has been obtained from [...] Report | | | electronically signed by: [id number] Eric Lin MD, PhD (12/09/2019, | | [...] | | | |Report electronically signed by: [id number] Eric Lin MD, PhD (12/09/2019, 2:48:53 | | | PM) | | | | | | | | | | | | Final | | + -+ + + + | Procedure Note | + + | Interface, Cardiology Results - 12/09/2019 2:48 PM [facility] | | [facility] Echocardiography Laboratory [address] [place] [address] | | [place], [place] [address] Pt Name: LANETTE ALARCON | | NELA Study Date/Time 12/09/2019 / 1:47:19 PMMRN: [id number] Most | | recent prior: 08/06/2019Acc #: [id number] No. previous echos: 1DOB: | | 1950 69 years Heart Rate: 59 bpmHeight: 65.9 in Blood | | Pressure: 102/65 mm/HgWeight: 212.0 lb Gender: FBSA: | | 2.05 m | | Order ID: [id number] [facility]: September | | Lázaro HENRIQUEZ, RDCSReferring Provider: CHRISTY WILSONModwanda Performed: 2D, Color flow, | | Spectral Doppler, Strain and For the precise quantification of LV volumes and ejection | | fraction, online 3-D reconstruction was clinically indicated and performed under the | | concurrent supervision of the interpreting workers compensation analyst.Study Quality: Fair.Exam | | Indication: Research; [place] [id number]: Myelofibrosis Patient history has been | | [...] and indexed values Report electronically signed by: [id number] Eric | | Riley WORTHY, PhD (12/09/2019, [...] | | | |Report electronically signed by: [id number] Eric Lin MD, PhD (12/09/2019, 2:48:53 | | PM) | | | | | | | | Final | + + + + + + + | Performing | Address | City/State/Zipcode | Phone Number | | Organization | | | | + + + + + | [facility] | [address] [facility] | [place], [place] | | | CARDIOLOGY | [address] | [address] | | + + + + + [...] Note | + + | Service Account, The X Train Res In Interface - 12/08/2019 8:49 AM [...] | | | LABORATORY | | | KEN[place]AN | | | SERVICES, | | | [...] | + + + + + | [facility] | [address] | [place] [address] | | | SERVICES, CORE | PARK [...] [facility] | [address] | [place] [address] | | | SERVICES, CORE | PARK [...] | + + + + + | [facility] | [address] | [place] [address] | | | SERVICES, CORE | SHANNA [...] | + + + + + | [facility] | [address] [facility] | [place] [address] | | | SERVICES, CORE | PARK [...] [facility] | [address] | [place] [address] | | | SERVICES, CORE | PARK [...] [facility] | [address] | [place] [address] | | | SERVICES, CORE | PARK [...] [facility] | [address] | [place] [address] | | | SERVICES, CORE | PARK [...] [facility] | [address] | [place] [address] | | | SERVICES, CORE | PARK [...] | + + + + + | [facility] | [address] | [place] [address] | | | SERVICES, CORE | SHANNA [...]
--- OUTSIDE RECORDS SUMMARY | ~2019-12-27 | XMS | Encounter Summary ---
Demographics + + + | Address | [address] | | | [place] [address] | + + + | Home Phone [...] Team Providers + +------+ + | Care Tape Transferrer Name | Role | Phone | + [...] [address] | | | | | [facility] [address] | [place] [address] [place], | | | | | [facility] | [place] [address] | | | | | Health and Healing, | [phone] | | | | | [facility] 2 | | | | | | [place], [place] | | | | | | [address] | | | | | | [phone] | | | +--------+ + + + [...] | | | | | | [place] [address] | | | | | | [phone] | | | | | | | | +--------+ + + + + | 01/14/ | Appointment | Hematology & | Onc, Gen [address] | | | 2019 | | Oncology | [place] | | | | | | [place] [address] | | +--------+ + + + + documented as of this encounter Visit Diagnoses Not on filedocumented in this encounter"
--- OUTSIDE RECORDS SUMMARY | ~2019-12-27 | XMS | Encounter Summary ---
Demographics + + + | Address | [address] | | | [place] [address] | + + + | Home Phone [...] Team Providers + +------+ + | Care Entry Specialist Name | Role | Phone | [...] Nadya | | | | | | Dyasi Ramires MD | Health & | | | | | Myelofibrosi | [address] | [facility] | | | | | s (HCC) | Leonel Otero | [address] | | | | | Procedures | Rd | [address]ON[address]TER[address] | | | | | TRANSTHORACI | [place], [place] | ROAD | | | | | C | | [place], [place] | | | | | ECHOCARDIOGR | Phone: | [address] | | | | | AM, ADULT | [phone] | Phone: | | | | | | Fax: | [phone] | | | | | | [phone] | | + +--------+ + + + + Encounter Details +--------+ + + + + | Date | Type | Department | Care Team | Description | +--------+ + + + + | 12/22/ | Group Insurance Specialist | [facility] | Daysi Mccauley MD | Myelofibrosis (HCC) | | 2019 | | Clinics at S | [address] | (Primary Dx) | | | | [facility] [address] | [address] [place], | | | | | [facility] | [place] [address] | | | | | Health and Healing, | [phone] | | | | | [facility] [address] | | | | | | [place], [place] | | | | | | [address] | | | | | | [phone] | | | +--------+ + + + [...] | | | | | [address] [place], | | | | | | [place] [address] | | | | | | [phone] | | | | | | | | +--------+ + + + + | 01/14/ | Appointment | Hematology & | Onc, Gen [address] | | | 2019 | | Oncology | [place], | | | | | | [place] [address] | | +--------+ + + + + [...]
--- OUTSIDE RECORDS SUMMARY | ~2019-12-27 | XMS | Encounter Summary ---
Demographics + + + | Address | [address] | | | [place] [address] | + + + | Home Phone [...] Team Providers + +------+ + | Care Siphon Operator Name | Role | Phone | [...] | Clinics at S | [address] [facility] | (Primary Dx); | | | | [facility] [address] [place], | Neutropenic | | | | [facility] | [place] [address] | splenomegaly ; | | | | Health and Healing, | [phone] | Pancytopenia (HCC) | | | | [address] | | | | | | [place], [place] | | | | | | [address] | | | | | | [phone] | | | +--------+---------+ + + + [...] fluids a day. Call the BMT clinic ([phone]) or BMT person on-call ([phone]) for: Any temp > 100.4 Nausea/vomiting unresponsive [...] [facility] Primary provider in [facility] Clinic: Daysi Mccauley MD PCP: JOSEFA Meng ID: Myelofibrosis Follow-up Visit: Fidelia Pickett is a 69 year old female who was referr ed to our clinic for management of Myelofibrosis in the setting of pancytopenia and bone mar row abnormalities. History of Present Illness: iFdelia Pickett presented after new likely diagnosis of MF. The patient has a past medica l history that includes HTN and hypothyroidism. The patient's hematological history dates ba ck to 08/02/2019 where she was seen in the ED in [place], [place] for dyspnea. Found to be panc ytopenic including Hgb/HCT of 6.3/18.1 and platelet count at 42. She was transfused two unit s and discharged home with plan for follow-up and BMBx at [facility]. Subsequently admitted from 08/04- at [facility] d/t pancytopenia. BMBx performed on 2019. Marrow was hypercelllular (90%) with prominent fibrosis and 30% hematopoietic elements with increased reticulin fibrosis, Megakaryocytic hyperplasia/ atytpia, blasts less than 5% . 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 In local clinic on 08/18/2019, in order to discuss results of BMBx with Dr. Blood at [facility] d [facility] Heme/Onc. She had been doing [...] Myelofibrosis, or Post-Essential Thrombocyth emia Myelofibrosis" eIRB# [id number] Interval Hx: Fidelia Pickett is a 69 [...] Myelofibrosis, or Post-Essential Thromboc ythemia Myelofibrosis" eIRB# [id number]. -On 12/04/2019, Ms. Fidelia Pickett consented to discussed CTI PAC-203 "A Phase 2/3 Study of Pacritinib in Patients with Primary Myelofibrosis, Post Polycythemia Vera Myelofibrosis, or Post-Essential Thrombocythemia Myelofibrosis" eIRB# [id number]. -Today 12/17/2019, she feels well overall, however [...] protocol, or sooner as needed. JOSEFA Sanchez [facility] [address] [facility], [address] [place] [address] documented in this enco unter [...] | | | | | | [place] [address] | | | | | | [phone] | | | | | | | | +--------+ + + + + | 01/14/ | Appointment | Hematology & | Onc, Gen [address] | | | 2019 | | Oncology | [place], | | | | | | [place] [address] | | +--------+ + + + + [...]
--- OUTSIDE RECORDS SUMMARY | ~2019-12-27 | XMS | Encounter Summary ---
Demographics + + + | Address | [address] | | | [place] [address] | + + + | Home Phone [...] Team Providers + +------+ + | Care Stamping Mill Tender Name | Role | Phone | + +------+ + | Oz Rodriguez MD | PCP | | + +------+ + Encounter Details +--------+ + + + + | Date | Type | Department | Care Team | Description | +--------+ + + + + | 09/25/ | Pharmacy | Pharmacy @ [facility] | | | | 2020 | Visit | [address] | | | | | | [address] Mailcode: | | | | | | [facility] | | | | | | [address], | | | | | | [address] | | | | | | [place], [place] | | | | | | [address] | | | +--------+ + + + [...] | | | | | [address] [place], | | | | | | [place] [address] | | | | | | [phone] | | | | | | | | +--------+ + + + + | 01/14/ | Appointment | Hematology & | Onc, Gen [address] | | | 2020 | | Oncology | [place], | | | | | | [place] [address] | | +--------+ + + + + documented as of this encounter Visit Diagnoses Not on filedocumented in this encounter"
--- OUTSIDE RECORDS SUMMARY | ~2019-12-27 | XMS | Encounter Summary ---
Demographics + + + | Address | [address] | | | [place] [address] | + + + | Home Phone | | + + + | Preferred Language | Unknown | + + + | Marital Status | | + + + | Synagogue Affiliation | LUT | + + + [...] Team Providers + +------+ + | Care Die Inspector Name | Role | Phone | + +------+ + | SilverioMargarita crawford BOBBIN DOFFER | PCP | | + +------+ + [...] | | | | | | [place] [address] | | | | | | [phone] | | | | | | | | +--------+ + + + + | 01/14/ | Appointment | Hematology & | Onc, Gen [address] | | | 2019 | | Oncology | [place] | | | | | | [place] [address] | | +--------+ + + + + documented as of this encounter Visit Diagnoses Not on filedocumented in this encounter"
--- OUTSIDE RECORDS SUMMARY | ~2019-12-27 | XMS | Encounter Summary ---
Demographics + + + | Address | [address] | | | [place] [address] | + + + | Home Phone [...] Team Providers + +------+ + | Care Pan Shover Name | Role | Phone | + [...] | | | | | stic | [facility] | Oto for | | | | | syndrome) | Rd | Health and | | | | | (HCC) | [place], [place] | Healing, | | | | | Procedures | [address] | [address] | | | | | CONSULT TO | Phone: | [place], [place] | | | | | TRANSPLANT - | [phone] | [address] | | | | | BMT | Fax: | Phone: | | | | | | [phone] | [phone] | | | | | | | Fax: | | | | | | | [phone] | + +---------+ + + + + [...] | | | [facility] [address] | [facility] [address] | | | | | [facility] | [place], [place] | | | | | Health and Healing, | [address] | | | | | [address] | [phone] | | | | | [place], [place] | | | | | | [address] | | | | | | [phone] | | | +--------+---------+ + + + [...] coordinate this to happen all here at [facility] over one to two days). The 2 hour education class talks about what to expect before, during and after transplant i ncluding GVHD. Do to Covid we are no longer giving these classes in person, this will be a [employer] link that will be sent out for [...] our clinic or you may admit to [facility] and get high dose chemotherapy [...] this. STEP 4) When you discharge from [facility] after transplant you need to be living close to [facility] ( within 30 miles) for [...] by page at , by phone at [phone] or via email at [email or web address] DONOR TYPING and SEARCH We would like your siblings names and phone numbers (full siblings only. No 1/2 or steps) P lease provide them to our nurse Franci Martinez via email at [email or web address] Once we have authorization we will send [...] -I will give you the consent form (7780) to read and see if you want to participate in thes e studies. Take care, Dr. Sheri Rosado Check out at the lead front desk agent today.You can call the schedulers at [phone]. If you develop any symptoms or have any medical questions, please call the Triage Nurse at [phone] or [phone] (Sunday - Sunday 8:30-4:30). During after hours, ple ase call [phone] and ask to have the BMT Person Residential Real Estate Assistant paged. FOR PRESCRIPTIONS:please allow 48-72 hours for prescription refills. Please make sure no refills remain prior to calling. If refills remain, please call the pharmacy for a refill. Hematology/Oncology Nurse Coordinator [facility] | [facility] [address] [facility] [place] [address] tel [phone] fax [phone] documented in this encounter Progress Notes Sheri Rosado MD - 11/10/2019 10:30 AM PDTFormatting of this note might be different fr om the original. [facility] - BMT CONSULT 11/10/2019 [facility] [address] [place] [address] This consult or new patient visit was requested by: Daysi Mccauley MD [address] [place] [address] Reason for Consultation Fidelia Pickett is a [...] metaphase karyotype. There was no evidence for DEK/DBI623 fusion. Gene Alteration Classification VAF* Targeted Therapy Additional Information TP53 p.L194H Tier I 16% [id number] U2AF1 p.Q157R Tier II 8% [id number] DOCK8 p.S165L Tier III 51% [id number] 09/11/2019: WBC 2.25, Hb 8.8, Plt 16, [...] Social Hx: , lives with her in [place], [place] Smoking - denies Alcohol - 3 x a week Illicit drugs - denies Reports issues with her memory with age - difficulties remembering names. Continues to [employer] with her Occupation: different jobs, last [...] Depression/anxiety requiring psychiatric consult or treatment in [place] 4 weeks 1 1 Hepatic - [...] the years. Will obtain an eval by Drier Tender fo r risk assessment. - donor search [...] for allogeneic HSCT - daughter lives in [facility] 9) Arthralgia, likely disease associated hip pain - improved with Jakafi - Celebrex PRN 10) Trial considerations - Consented for Ctrl-Alt-D for alternative donor search, if indicated. - Gave her consent to review for [facility], will consent at the next visit. A copy of this consult has been sent to the requesting provider. Urgent recommendations, if any, will be communicated with the provider directly. The patient will return to the clinic for follow-up in 1 month. Summary of visit This was a consult or new patient visit with Fidelia Pickett. My sonw-hx-nutb visit laste d 70 minutes, with over [...] | | | | | | [place] [address] | | | | | | [phone] | | | | | | | | +--------+ + + + + | 01/14/ | Appointment | Hematology & | Onc, Gen [address] | | | 2020 | | Oncology | [place] | | | | | | [place] [address] | | +--------+ + + + + [...] LABORATORY | [address] | [place] [address] | | | SERVICES, [facility] | | | | | HEALTH [...] LABORATORY | | | | | | [facility], | | | | | | [facility] | | | | | | [...] are included in the neutrophil count. | [facility] | | | HEALTH + | | | HEALING | + + + + + + + + | Performing | Address | City/State/Zipcode | Phone Number | | Organization | | | | + + + + + | [facility] | [address] | [place] [address] | | | [facility] | | | | | [...] | + + + + + | [facility] | [address] | [place] [address] | | | SERVICES, [facility] | | | | | HEALTH [...] [facility] | [address] | [place] [address] | | | SERVICES, CORE | PARK [...] | | | LABORATORY | | | [place] | | | SERVICES, | | | [...] MDRD equation recommended by the National | [facility] | | Kidney Disease Education [...] [facility] | [address] | [place] [address] | | | SERVICES, [facility] | | | | | HEALTH + HEALING | | | | + + + + + documented in this encounter Visit Diagnoses + + | Diagnosis | + + | MF (myelofibrosis) (HCC) Myelofibrosis | + + documented in this encounter
--- OUTSIDE RECORDS SUMMARY | ~2019-12-27 | XMS | Encounter Summary ---
Demographics + + + | Address | [address] | | | [place] [address] | + + + | Home Phone [...] Team Providers + +------+ + | Care Metal Filer Name | Role | Phone | + [...] | | | | is) (HCC) | [facility] | [address] [facility] | | | | | Procedures | Rd | [facility] | | | | | MRI ABDOMEN | [place], [place] | ROAD | | | | | [address] | [address] | [place], [place] | | | | | | Phone: | [address] | | | | | | [phone] | Phone: | | | | | | Fax: | [phone] | | | | | | [phone] | | + +--------+ + + + + Reason for Visit Diagnostic Testing (Routine) + +--------+ + + + + | Status | Reason | Specialty | Diagnoses / | Referred By | Referred To | | | | | Procedures | Contact | Contact | + +--------+ + + + + | New Request | | Radiology | Diagnoses | [place], | [place] | | | | | MF | Daysi Ramires MD | Health & | | | | | (myelofibros | [address] | [facility] | | | | | is) (HCC) | [facility] | [address] | | | | | Procedures | Rd | [address]TER[address] | | | | | MRI ABDOMEN | [place], [place] | ROAD | | | | | [address] CONTRAST | [address] | [place], [place] | | | | | | Phone: | [address] | | | | | | [phone] | Phone: | | | | | | Fax: | [phone] | | | | | | [phone] | | + +--------+ + + + + Encounter Details +--------+ + + + + | Date | Type | Department | Care Team | Description | +--------+ + + + + | 12/06/ | Hospital | Diagnostic Imaging | Daysi Mccauley MD | | | 2020 | Encounter | Services at [facility] | [address] | | | | | [address] | [address] [place], | | | | | [address] [address] | [place] [address] | | | | | [facility] | [phone] | | | | | [facility] [place] | | | | | | [address] | | | | | | [phone] | | | +--------+ + + + [...] | | | | | | [place] [address] | | | | | | [phone] | | | | | | | | +--------+ + + + + | 01/14/ | Appointment | Hematology & | Onc, Gen [address] | | | 2019 | | Oncology | [place], | | | | | | [place] [address] | | +--------+ + + + + [...]
--- OUTSIDE RECORDS SUMMARY | ~2019-12-27 | XMS | Encounter Summary ---
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 not | | | | [facility] | [place], [place] | having achieved | | | | Health and Healing, | [address] | remission (HCC); | | | | [address] | [phone] | Hypomagnesemia | | | | [facility] [place] | | | | | | [address] | | | | | | [phone] | | | +--------+ + + + [...] | | | | | | [place] [address] | | | | | | [phone] | | | | | | | | +--------+ + + + + | 01/14/ | Appointment | Hematology & | Onc, Gen [address] | | | 2019 | | Oncology | [place] | | | | | | [place] [address] | | +--------+ + + + + [...] LABORATORY | [address] | [place] [address] | | | SERVICES, [facility] | | | | | HEALTH [...] [facility] | [address] | [place] [address] | | | SERVICES, [facility] [facility] | | | | | HEALTH [...] [facility] | [address] | [place] [address] | | | [facility] | | | | [...] | | | LABORATORY | | | [place] | | | SERVICES, | | | [...] MDRD equation recommended by the National | [facility] | | Kidney Disease Education Program. [...] | + + + + + | [facility]ORY | [address] | [place] [address] | | | SERVICES, [place] [facility] | | | | | HEALTH [...] [facility] | [address] | [place] [address] | | | SERVICES, CORE | PARK [...] | + + + + + | [facility] | [address] | [place] [address] | | | SERVICES, CORE | SHANNA [...]
--- OUTSIDE RECORDS SUMMARY | ~2019-12-27 | XMS | Encounter Summary ---
Demographics + + + | Address | [address] | | | [place] [address] | + + + | Home Phone [...] Providers + +------+ + | Care Supervisor Abattoir Name | Role | Phone | + +------+ + | Oz Rodriguez MD | PCP | | + +------+ + Encounter Details +--------+ + + + + | Date | Type | Department | Care Team | Description | +--------+ + + + + | 12/14/ | Document-Sc | UNKNOWN DEPARTMENT | Other, Faculty | | | 2020 | annsabas | [address] [facility] | [phone] | | | | | [address] | | | | | | [place], [place] | | | | | | [address] | | | +--------+ + + + [...] | | | | | [address] [place], | | | | | | [place] [address] | | | | | | [phone] | | | | | | | | +--------+ + + + + | 01/14/ | Appointment | Hematology & | Onc, Gen [address] | | | 2020 | | Oncology | [place], | | | | | | [place] [address] | | +--------+ + + + + documented as of this encounter Visit Diagnoses Not on filedocumented in this encounter"
--- OUTSIDE RECORDS SUMMARY | ~2019-12-27 | XMS | Encounter Summary ---
Demographics + + + | Address | [address] | | | [place] [address] | + + + | Home Phone [...] Team Providers + +------+ + | Care Ed Case Manager Name | Role | Phone | + +------+ + | zO Rodriguez MD | PCP | | + +------+ + Encounter Details +--------+ + + + + | Date | Type | Department | Care Team | Description | +--------+ + + + + | 08/25/ | Pharmacy | Pharmacy @ [facility] | | | | 2020 | Visit | [address] | | | | | | [address] Mailcode: | | | | | | [facility] | | | | | | and [address], | | | | | | [address] | | | | | | [place], [place] | | | | | | [address] | | | +--------+ + + + [...] | | | | | [address] [place] [place], | | | | | | [place] [address] | | | | | | [phone] | | | | | | | | +--------+ + + + + | 01/14/ | Appointment | Hematology & | Onc, Gen [address] | | | 2020 | | Oncology | [address] [place], | | | | | | [place] [address] | | +--------+ + + + + documented as of this encounter Visit Diagnoses Not on filedocumented in this encounter"
--- OUTSIDE RECORDS SUMMARY | ~2019-12-27 | XMS | Encounter Summary ---
Demographics + + + | Address | [address] | | | [place] [address] | + + + | Home Phone [...] | + + + + + | Syk Pickett | ECON | Unknown | | + + + + + | Cherelle Silva | ECON | [place], | | + + + + + Care Team Providers + +------+ + | Care Buttonhole Maker Hand Name | Role | Phone | [...] | | | | | | [place] [address] | | | | | | [phone] | | | | | | | | +--------+ + + + + | 01/14/ | Appointment | Hematology & | Onc, Gen [address] | | | 2019 | | Oncology | [place], | | | | | | [place] [address] | | +--------+ + + + + documented as of this encounter Visit Diagnoses Not on filedocumented in this encounter"
--- OUTSIDE RECORDS SUMMARY | ~2019-12-27 | XMS | Encounter Summary ---
Demographics + + + | Address | [address] | | | [place] [address] | + + + | Home Phone [...] Team Providers + +------+ + | Care Commission Auditor Name | Role | Phone | [...] | [facility] [address] [facility], | | | | | [facility] | [place] [address] | | | | | Health and Healing, | [phone] | | | | | [address] | | | | | | [place], [place] | | | | | | [address] | | | | | | [phone] | | | +--------+---------+ + + + [...] uconazole). We will send these prescriptions to [facility]. Right now, Dr. Mccauley thinks it's [...] best way to contact her is through [facility]. Please note, Kathrine is off on Wednesdays, but there are other members of the Oncology care team who will be available to assist you. Kathrine Sheets, MSN- head cd reactor operator/Oncology Nurse Coordinator [facility] | [facility] [address] [place] [address] Clinic: [phone] For further questions or concerns: [facility]: We encourage patients to use [facility] as the primary mode of communication. Feel fr ee to message us on [facility] with any questions that may arise. Appointments/Questions/Follow-up: If you have any questions about appointments or need to c all to make a follow up appointment, please call the medical front desk coordinator at [phone]. Symptoms/Medical Questions: If you develop any symptoms or have any urgent medical question s, please call the Triage Nurse at [phone] or x [phone] (Sunday - Sunday 8:30-4:30). After hours, please call [phone] and ask to have the BMT Person Brewmaster pag ed. Feedback: We value and appreciate your opinion and would like to learn from your experience at [facility]. Please complete the surveys that [facility] sends. Thank you! Prescriptions: [...] AM PDT Myelofibrosis OUTPATIENT CONSULT 08/19/2019 08/19/2019 [facility] [address] [place] [address] Reason for Consultation Fidelia Pickett is a [...] she was seen in the ED in [place], [place] for dyspnea. Fou nd to be pancytopenic including Hgb/HCT of 6.3/18.1 and platelet count at 42. She was transf used two units and discharged home with plan for follow-up and BMBx at [facility]. Subsequently admitted from 08/04-08/08/2019 at [facility] d/t pancytopenia. BMBx performed [...] of BMBx with Dr. Sherri chamberlain at [facility]/Onc. She had been doing well for the [...] file Gets together: Not on file Attends christianity service: Not on file Active member of [...] found in m yeloid malignancies such as [id number] are recommended. ECHO Assessment and recommendations Fidelia [...] record ed by Mor Coates. Daysi Mccauley, Video Photographer, Section for Hematologic Malignancies. [facility] Patient Instructions It was a pleasure to [...] uconazole). We will send these prescriptions to [facility]. Right now, Dr. Mccauley thinks it's [...] best way to contact her is through [facility]. Please note, Kathrine is off on Wednesdays, but there are other members of the Oncology care team who will be available to assist you. Kathrine Sheets, MSN- head cd reactor operator/Oncology Nurse Coordinator [facility] | [facility] [employer] [place] [address] Clinic: [phone] For further questions or concerns: MyChart: We encourage patients to use [facility] as the primary mode of communication. Feel fr ee to message us on [facility] with any questions that may arise. Appointments/Questions/Follow-up: If you have any questions about appointments or need to c all to make a follow up appointment, please call the medical front desk coordinator at [phone]. Symptoms/Medical Questions: If you develop any symptoms or have any urgent medical question s, please call the Triage Nurse at [phone] or x [phone] (Sunday - Sunday 8:30-4:30). After hours, please call [phone] and ask to have the BMT Person Brewmaster pag ed. Feedback: We value and appreciate your opinion and would like to learn from your experience at [facility]. Please complete the surveys that [facility] sends. Thank you! Prescriptions: [...] | | | | | | [place] [address] | | | | | | [phone] | | | | | | | | +--------+ + + + + | 01/14/ | Appointment | Hematology & | Onc, Gen [address] | | | 2020 | | Oncology | [place] | | | | | | [place] [address] | | +--------+ + + + + documented as of this encounter Visit Diagnoses + + | Diagnosis | + + | MF (myelofibrosis) (HCC) - Primary Myelofibrosis | + + documented in this encounter"
--- OUTSIDE RECORDS SUMMARY | ~2019-12-27 | XMS | Encounter Summary ---
Demographics + + + | Address | [address] | | | [place] [address] | + + + | Home Phone [...] Team Providers + +------+ + | Care Hoof Trimmer Name | Role | Phone | + +------+ + | Margarita Patterson | PCP | | + +------+ + Encounter Details +--------+ + + + + | Date | Type | Department | Care Team | Description | +--------+ + + + + | 08/17/ | Paper Tube Grader | [facility] | Daysi Mccauley MD | | | 2019 | | [facility] at | [address] | | | | | [facility] [address] [place], | | | | | [facility] | [place] [address] | | | | | Health and Healing, | [phone] | | | | | [address] | | | | | | [place], [place] | | | | | | [address] | | | | | | [phone] | | | +--------+ + + + [...] | | | | | [place], | | | | | | [place] [address] | | | | | | [phone] | | | | | | | | +--------+ + + + + | 01/14/ | Appointment | Hematology & | Onc, Gen [address] | | | 2020 | | Oncology | [place], | | | | | | [place] [address] | | +--------+ + + + + documented as of this encounter Visit Diagnoses Not on filedocumented in this encounter"
--- OUTSIDE RECORDS SUMMARY | ~2019-12-27 | XMS | Encounter Summary ---
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 documented in this enc ounter Plan [...] | | | | | [place], | | | | | | [place] [address] | | | | | | [phone] | | | | | | | | +--------+ + + + + | 01/14/ | Appointment | Hematology & | Onc, Gen [address] | | | 2019 | | Oncology | [place], | | | | | | [place] [address] | | +--------+ + + + + [...] | Lab - | Routin | Pancytopenia ([facility]) | 08/29/2019 until | | | Beaker [...] + + + + | PRODUCT | [id number] | | [facility] | | | UNIT [...] + + + + | EXPIRATION | [id number] | | [facility] | | | DATE [...] + + + + | BLOOD | [id number] | | [facility] | | | PRODUCT [...] [facility] | [address] | [place] [address] | | | SERVICES, | [address] [...] LABORATORY | [address] | [place] [address] | | | SERVICES, [place] [facility] | | | | | HEALTH [...] [facility] | [address] | [place] [address] | | | [facility] | | | | | [...] LABORATORY | [address] | [place] [address] | | | SERVICES, [place] [facility] | | | | | HEALTH [...] | + + + + + | [facility] | [address] | [place] [address] | | | SERVICES, [place] [facility] | | | | | HEALTH [...] LABORATORY | [address] | [place] [address] | | | SERVICES, CENTER FOR | [...] [facility] | [address] | [place] [address] | | | SERVICES, | [address] [...] | LABORATORY | | | [place] | | | SERVICES, | | | [...] MDRD equation recommended by the National | [facility] | | Kidney Disease Education Program. [...] | + + + + + | [facility] | [address] | [place] [address] | | | SERVICES, [facility] | | | | | HEALTH + HEALING | | | | + + + + + documented in this encounter Visit Diagnoses + + | Diagnosis | + + | Pancytopenia (HCC) - Primary Other pancytopenia | + + documented in this encounter"
--- OUTSIDE RECORDS SUMMARY | ~2019-12-27 | XMS | Encounter Summary ---
Demographics + + + | Address | [address] | | | [place] [address] | + + + | Home Phone [...] Team Providers + +------+ + | Care Transition Teacher Name | Role | Phone | + +------+ + | Oz Rodriguez MD | PCP | | + +------+ + Encounter Details +--------+ + + + + | Date | Type | Department | Care Team | Description | +--------+ + + + + | 08/31/ | Pharmacy | [facility] | | | | 2020 | Visit | [address] | | | | | | [address] | | | | | | [place] [address] | | | | | | [phone] | | | +--------+ + + + [...] | | | | | | [place] [address] | | | | | | [phone] | | | | | | | | +--------+ + + + + | 01/14/ | Appointment | Hematology & | Onc, Gen [address] | | | 2019 | | Oncology | [place] | | | | | | [place] [address] | | +--------+ + + + + documented as of this encounter Visit Diagnoses Not on filedocumented in this encounter"
--- OUTSIDE RECORDS SUMMARY | ~2019-12-27 | XMS | Encounter Summary ---
Demographics + + + | Address | [address] | | | [place] [address] | + + + | Home Phone | | + + + | Preferred Language | Unknown | + + + | Marital Status | | + + + | Druze Affiliation | LUT | + + + [...] | + + + + + | kSy Pickett | ECON | Unknown | | + + + + + | Cherelle Silva | ECON | Dagmar, | | + + + + + Care Team Providers + +------+ + | Care Vehicle Dismantler Name | Role | Phone | + +------+ + | Margarita Patterson | PCP | | + +------+ + Encounter Details +--------+ + + + + | Date | Type | Department | Care Team | Description | +--------+ + + + + | 08/10/ | Finish Opener | [facility] | Valarie Levi, | | | 2019 | | Clinics at | [facility] [address] [facility] | | | | | [facility] [address] | | | | | [facility] for | [place], [place] | | | | | Health and Healing, | [address] | | | | | [address] | [phone] | | | | | [place], [place] | | | | | | [address] | | | | | | [phone] | | | +--------+ + + + [...] | | | | | [place], | | | | | | [place] [address] | | | | | | [phone] | | | | | | | | +--------+ + + + + | 01/14/ | Appointment | Hematology & | Onc, Gen [address] | | | 2020 | | Oncology | [place], | | | | | | [place] [address] | | +--------+ + + + + documented as of this encounter Visit Diagnoses Not on filedocumented in this encounter"
--- OUTSIDE RECORDS SUMMARY | ~2019-12-27 | XMS | Encounter Summary ---
Demographics + + + | Address | [address] | | | [place] [address] | + + + | Home Phone | | + + + | Preferred Language | Unknown | + + + | Marital Status | | + + + | Zoroastrian Affiliation | LUT | + + + | Race | White | + + + | Ethnic Group | Not or | + + + Author + + + | Author | [facility] | + + + | Organization | [facility] | + + + | [...] Team Providers + +------+ + | Care Machine Setup Operator Name | Role | Phone | + +------+ + | Oz Rodriguez MD | PCP | | + +------+ + Encounter Details +--------+ + + + + | Date | Type | Department | Care Team | Description | +--------+ + + + + | 10/07/ | Pharmacy | [facility] | | | | 2020 | Visit | [address] | | | | | | [address] | | | | | | [place] [address] | | | | | | [phone] | | | +--------+ + + + [...] | | | | | | [place] [address] | | | | | | [phone] | | | | | | | | +--------+ + + + + | 01/14/ | Appointment | Hematology & | Onc, Gen [address] | | | 2019 | | Oncology | [place] | | | | | | [place] [address] | | +--------+ + + + + documented as of this encounter Visit Diagnoses Not on filedocumented in this encounter"
--- OUTSIDE RECORDS SUMMARY | ~2019-12-27 | XMS | Encounter Summary ---
Demographics + + + | Address | [address] | | | [place] [address] | + + + | Home Phone [...] Team Providers + +------+ + | Care Group Fitness Assistant Department Head Name | Role | Phone | + +------+ + | No, Physician | PCP | Unavailable | + +------+ + Reason for Visit +---------+--------+ + | Reason | Onset | Comments | | | Date | | +---------+--------+ + | Results | 11/17/ | | | | 2020 | | +---------+--------+ + Encounter Details +--------+ + + + + | Date | Type | Department | Care Team | Description | +--------+ + + + + | 06/16/ | Telephone | [facility] | Victor Manuel Amaya, | Results | | 2020 | | NEUROLOGY [address] | | | | [address] | [address] [facility] | | | | | [place], [place] | [place] [address] | | | | | [address] | [phone] | | | | | [phone] | | | +--------+ + + + [...] this encounter Miscellaneous Notes Telephone Encounter - Jett Marshall CMA - 11/18/2019 1:31 PM PDTCalled patient back and gave test results. She verbalize understanding and thanked me for the call. Electronically s igned by Jett Marshall CMA at 11/18/2019 1:31 PM PDTTelephone Encounter - Aliyah Hicks - 11/18/2019 11:42 AM PDTCarol, is calling regarding Results and would like a call back. Additional Call Details: Is calling to receive the Cognitive test Results from May 23. States she was not told the results. Please call back at the home number. States can darrion ve results in a detailed message. If this is a symptom based call, was patient offered triage? Not Applicable If this is a symptom based call and you were unable to immediately transfer the call to a shila gar darklight inspector was caller made aware that if at any time she feels it is an emergency they sh ould call 911 or go to the nearest emergency room? not applicable documented in this encounter Plan of Treatment Not on filedocumented as of this encounter Visit Diagnoses Not on filedocumented in this encounter"
--- OUTSIDE RECORDS SUMMARY | ~2019-12-27 | XMS | Encounter Summary ---
Demographics + + + | Address | [address] | | | [place] [address] | + + + | Home Phone [...] + +------+ + | Care Supervisor Roving Department Name | Role | Phone | + [...] | [facility] [address] [place], | Other (leg thigh | | | | [facility] | [place] [address] | pain) | | | | Health and Healing, | [phone] | | | | | [address] | | | | | | [place], [place] | | | | | | [address] | | | | | | [phone] | | | +--------+--------+ + + + [...] | | | | | | [place] [address] | | | | | | [phone] | | | | | | | | +--------+ + + + + | 01/14/ | Appointment | Hematology & | Onc, Gen [address] | | | 2019 | | Oncology | [place] | | | | | | [place] [address] | | +--------+ + + + + documented as of this encounter Visit Diagnoses Not on filedocumented in this encounter"
--- OUTSIDE RECORDS SUMMARY | ~2019-12-27 | XMS | Encounter Summary ---
Demographics + + + | Address | [address] | | | [place] [address] | + + + | Home Phone [...] Team Providers + +------+ + | Care Tenter Feeder Name | Role | Phone | [...] | Clinics at S | [address] [facility] | | | | | [place] [address] [place], | | | | | [facility] | [place] [address] | | | | | Health and Healing, | [phone] | | | | | [address] | | | | | | [place], [place] | | | | | | [address] | | | | | | [phone] | | | +--------+ + + + [...] | | | | | [place] [place], | | | | | | [place] [address] | | | | | | [phone] | | | | | | | | +--------+ + + + + | 01/14/ | Appointment | Hematology & | Onc, Gen [address] | | | 2019 | | Oncology | [place], | | | | | | [place] [address] | | +--------+ + + + + documented as of this encounter Visit Diagnoses Not on filedocumented in this encounter"
--- OUTSIDE RECORDS SUMMARY | ~2019-12-27 | XMS | Encounter Summary ---
Demographics + + + | Address | [address] | | | [place] [address] | + + + | Home Phone [...] Team Providers + +------+ + | Care Investigative Writer Name | Role | Phone | + +------+ + | Margarita Patterson | PCP | | + +------+ + Encounter Details +--------+ + + + + | Date | Type | Department | Care Team | Description | +--------+ + + + + | 12/03/ | Hospital | [facility] | | | | 2020 | Encounter | Clinics at S | | | | | | [facility] [address] | | | | | | [facility] for | | | | | | Health and Healing, | | | | | | [address] | | | | | | [place], [place] | | | | | | [address] | | | | | | [phone] | | | +--------+ + + + [...] | | | | | | [place] [address] | | | | | | [phone] | | | | | | | | +--------+ + + + + | 01/14/ | Appointment | Hematology & | Onc, Gen [address] | | | 2019 | | Oncology | [place] | | | | | | [place] [address] | | +--------+ + + + + documented as of this encounter Visit Diagnoses Not on filedocumented in this encounter"
--- OUTSIDE RECORDS SUMMARY | ~2019-12-27 | XMS | Encounter Summary ---
Demographics + + + | Address | [address] | | | [place] [address] | + + + | Home Phone [...] Team Providers + +------+ + | Care Demographer Name | Role | Phone | + [...] Pharmacy | | | | | | [address] | | | | | | [address] [place], [place] | | | | | | [address] | | | | | | [phone] | | | +--------+ + + + [...] | | | | | [place] [place], | | | | | | [place] [address] | | | | | | [phone] | | | | | | | | +--------+ + + + + | 01/14/ | Appointment | Hematology & | Onc, Gen [address] | | | 2019 | | Oncology | [place] | | | | | | [place] [address] | | +--------+ + + + + documented as of this encounter Visit Diagnoses Not on filedocumented in this encounter"
--- OUTSIDE RECORDS SUMMARY | ~2019-12-27 | XMS | Encounter Summary ---
Demographics + + + | Address | [address] | | | [place] [address] | + + + | Home Phone [...] Team Providers + +------+ + | Care Tractor Drill Operator Name | Role | Phone | + +------+ + | Margarita Patterson | PCP | | + +------+ + Reason for Visit + + + | Reason | Comments | + + + | Lab Draw | | + + + | Dressing change | PICC | + + + | Infusion | 1 unit Plts | + + + Encounter Details +--------+ + + + + | Date | Type | Department | Care Team | Description | +--------+ + + + + | 09/01/ | Hospital | [facility] | A, [address] | | | 2020 | Encounter | Clinics at S | [facility] | | | | | [address] | [place] [address] | | | | | [facility] | | | | | | [facility], | | | | | | [address] | | | | | | [place], [place] | | | | | | [address] | | | | | | [phone] | | | +--------+ + + + [...] + + + | Blood Pressure | 150/69 | 09/02/2019 2:04 PM | | | | | PDT | | + + + + + | Pulse | 63 | 09/02/2019 2:04 PM | | | | | PDT | | + + + + + | Temperature | 36.6 C (97.9 F) | 09/02/2019 2:04 PM | | | | | PDT | | + + + + + | Respiratory Rate | 16 | 09/02/2019 2:04 PM | | | | | PDT | | + + + + + | Oxygen Saturation | 100% | 09/02/2019 2:04 PM | | | | | PDT [...] documented as of this encounter Progress Notes Ita Salomon RN - 09/02/2019 10:00 AM PDTFormatting of this note might be different fro m the original. INFUSION NURSING NOTE Allergies: Fidelia has No Known Allergies. Narrative: Fidelia is a 69 yo female with hx of MF, in clinic today for labs and supportive care. Cori glez arrives to clinic walking independently. Patient states she is feeling tired today. Nursing Assessment: Fever/Chills/Infection: No SOB / Cough: Yes - SOB with exertion Dizziness/Lightheaded/Fatigue: Yes - acknowledges generalized fatigue. Stated she helped he r in the yard the other day and was so exhausted the next day. Not able to do as muc h as she once did. Signs/Symptoms Bleeding: Yes - slight bloody nose last night that quickly resolved. Neuropathy: No Mucositis: No Nausea/Vomiting: No Appetite: Good. Diarrhea/Constipation: No PO Fluid Intake: 2L. Rash/Skin sores/Edema: No Urinary Issues: No Pain: Yes - has been experiencing headaches. Rated 6-7/10. States she has had them daily fo r weeks. Reported that when she takes her BP at home, systolic BP has occasionally been 199- [address] Mccauley notified. Vascular Access: PICC intact to left upper extremity without [...] NS. Patient tolerated procedure without diffi culty. VAD Lab Draw: PICC accessed per protocol. Good blood return noted. Appropriate waste discarded. Labs d rawn and sent. PICC pulse flushed with 20 mL NS. Per Orders: Lab Results Component Value Date PLT 11 09/02/2019 Orders to transfuse platelet product for a platelet count today as above and for nose bleed last night. Each unit was checked by two RNs to confirm the unit number, ABO and Rh type pr inted on tag matched information on blood bag and to confirm crossmatch compatibility. At t he bedside, two RNs verified the correct patient using two unique identifiers, confirmed the unit number, ABO and Rh type printed on tag matched the information on blood bag and confir med crossmatch compatibility. Informed consent was verified. The patient was not premedicated. She received 1 unit of platelets per Provider s orders . Transfusion was tolerated well without complication. Frequent vital signs were monitored throughout the transfusion and reviewed by me. For transfusion details, see ONC Lines & Tr ansfusions doc flowsheet. Patient was reminded to call clinic with temp > 100.4, chills, s/s of bleeding or uncontrol led N/V/D/C. Patient d/c d ambulatory and in stable condition. Ita Salomon, RN documented in this en counter Plan [...] | | | | | | [place] [address] | | | | | | [phone] | | | | | | | | +--------+ + + + + | 01/14/ | Appointment | Hematology & | Onc, [address] | | | 2019 | | Oncology | [place] | | | | | | [place] [address] | | +--------+ + + + + + + +--------+ + + | Name | Type | Priori | Associated Diagnoses | Order Schedule | | | | ty | | | + + +--------+ + + | MANUAL DIFFERENTIAL | Lab - | Routin | Pancytopenia (HCC) | 09/02/2019 until | | | [facility] | e | | discontinued, 1 | | | Performable | | | completed | | | s | | | | + + +--------+ + + | RBC MORPHOLOGY | Lab - | Routin | Pancytopenia (HCC) | 09/02/2019 until | | | [facility] | [...] + +--------+ + + + | HB-LAB PROCESS, IRR | Routin | 09/02/2019 | Pancytopenia (HCC) | Results for this | | LR PLT PHER A | e | 12:07 PM | | procedure are in the | | | | PDT | | results section. | + +--------+ + + + | [facility] - MAGNESIUM, | Routin | 09/02/2019 | Pancytopenia (HCC) | Results for this | | PLASMA | e | 10:44 AM | | procedure are in the | | | | PDT | | results section. | + +--------+ + + + | [facility] - PHOSPHORUS, | Routin | 09/02/2019 | Pancytopenia (HCC) | Results for this | | PLASMA | e | 10:44 AM | | procedure are in the | | | | PDT | | results section. | + +--------+ + + + | RBC MORPHOLOGY | Routin | 09/02/2019 | Pancytopenia (HCC) | Results for this | | | e | 10:44 AM | | procedure are in the | | | | PDT | | results section. | + +--------+ + + + | CBC AND AUTO DIFF | Routin | 09/02/2019 | Pancytopenia (HCC) | Results for this | | | e | 10:44 AM | | procedure are in the | | | | PDT | | results section. | + +--------+ + + + | MANUAL DIFFERENTIAL | Routin | 09/02/2019 | Pancytopenia (HCC) | Results for this | | | e | 10:44 AM | | procedure are in the | | | | PDT | | results section. | + +--------+ + + + | [facility] - COMPLETE | Routin | 09/02/2019 | Pancytopenia (HCC) | Results for this | | METABOLIC SET | e | 10:44 AM | | procedure are in the | | | | PDT | | results section. | + +--------+ + + + | [facility] CBC W | Routin | 09/02/2019 | Pancytopenia (HCC) | Results for this | | DIFFERENTIAL | e | 10:44 AM | | procedure are in the | | | | PDT | | results section. | + +--------+ + + + | BLOOD BANK HOLD TUBE | Routin | 09/02/2019 | Pancytopenia (HCC) | Results for this | | - DON | e | 10:44 AM | | procedure are in the | | | | PDT | | results section. | | T PROCESS | | | | | + +--------+ + + + documented in this encounter Results PRODUCT - PLATELET PHERESIS LEUKOREDUCED (09/02/2019 12:07 PM PDT) + + + + + + | Component | Value | Ref Range | Performed | Pathologist | | | | | At | Signature | + + + + + + | PRODUCT | APHERESIS | | [facility] | | | DESCRIPTION | PLATELETS,PAS,LEUKOREDUC | | LABORATORY | | | | ED,IRRADIATED | | SERVICES, | | | | | | TRANSFUSION | | | | | | MEDICINE | | + + + + + + | PRODUCT | [id number] | | [facility] | | | UNIT [...] + + + | UNIT RH | POS | | [facility] | | | | [...] + + + + | EXPIRATION | [id number] | | [facility] | | | DATE | | | LABORATORY | | | | | | SERVICES, | | | | | | TRANSFUSION | | | | | | MEDICINE | | + + + + + + | BLOOD TYPE | [id number] | | [facility] | | | BARCODE | | | LABORATORY | | | | | | SERVICES, | | | | | | TRANSFUSION | | | | | | MEDICINE | | + + + + + + | BLOOD | [id number] | | [facility] | | | PRODUCT [...] [facility] | [address] | [place] [address] | | | SERVICES, | [address] | | | | TRANSFUSION MEDICINE | | | | + + + + + RBC MORPHOLOGY (09/02/2019 10:44 AM PDT) + + + + + [...] | + + + + + | [facility] | [address] | [place] [address] | | [facility] | [facility] | | | | + + + + + MANUAL DIFFERENTIAL (09/02/2019 10:44 AM PDT) + + + + + + | Component | Value | Ref Range | Performed | Pathologist | | | | | At | Signature | + + + + + + | NEUTROPHIL | 9.6 (L) | 50.0 - 70.0 % | [facility] | | | % | | | LABORATORY | | | | | | SERVICES, | | | | | | [facility] | [facility] + | | | | | | HEALING | | + + + + + + | LYMPHOCYTE | 77.2 (H) | 18.0 - 42.0 % | [...] + + + + | ATYPICAL | 1.8 (H)Comment: Atypical | 0.0 % | [facility] [...] + + + + | NEUTROPHIL | 0.21 (L) | 1.80 - 7.70 | [facility] | | | # | | K/cu mm | LABORATORY | | | | | | SERVICES, | | | | | | [facility] | | | | [facility] + | | | | | | HEALING | | + + + + + + | LYMPHOCYTE | 1.71 | 1.00 - 4.80 | [facility] | [...] + + + + | ATYPICAL | 0.04 | K/cu mm | [facility] | | [...] LABORATORY | [address] | [place] [address] | | | [facility] | | | | | HEALTH + HEALING | | | | + + + + + CBC AND AUTO DIFF (09/02/2019 10:44 AM PDT) + + + + + + | Component | Value | Ref Range | Performed | Pathologist | | | | | At | Signature | + + + + + + | WHITE CELL | 2.22 (L) | 3.50 - 10.80 | [facility] | | | COUNT | | K/cu mm | LABORATORY | | | | | | SERVICES, | | | | | | [facility] | | [facility] + | | | | | | HEALING | | + + + + + + | RED CELL | 3.05 (L) | 4.00 - 5.20 | [facility] [...] + + + + | HEMATOCRIT | 24.7 (L) | 36.0 - 46.0 % | [facility] | | | | | | LABORATORY | | | | | | SERVICES, | | | | | | [facility] | | | | [facility] + | | | | | | HEALING | | + + + + + + | MCV | 81.0 | 80.0 - 100.0 fL | [facility] | | | | | | LABORATORY | | | | | | SERVICES, | | | | | | [facility] | [facility] | | | | [facility] + | | | | | | HEALING | | + + + + + + | MCHC | 35.6 | 32.0 - 36.0 | [facility] | | | | | g/dL | LABORATORY | | | | | | SERVICES, | | | | | | [facility] | | | | [facility] + | | | | | | HEALING | | + + + + + + | RDW SD | 36.8 | 35.1 - 46.3 fL | [facility] | | | | | | LABORATORY | | | | | | SERVICES, | | | | | | [facility] | | | | [facility] + | | | | | | HEALING | | + + + + + + | PLATELET | 11 (L) | 150 - 400 K/cu | [...] + + + + | NEUTROPHIL | 0.25 (L)Comment: | 1.80 - 7.70 | [facility] [...] [facility] | [address] | [place] [address] | | | SERVICES, [facility] | | | | [facility] + [facility]AL[facility] | | | | + + + + + [facility] - PHOSPHORUS, PLASMA (09/02/2019 10:44 AM PDT) + +-------+ + + + [...] | + + + + + | [facility] | [address] | [place] [address] | | | SERVICES, [facility] | | | | | [facility] + HEALING | | | | + + + + + [facility] - MAGNESIUM, PLASMA (09/02/2019 10:44 AM PDT) + +-------+ + + + [...] [facility] | [address] | [place] [address] | | | SERVICES, [facility] | | | | | [facility] + HEALING | | | | + + + + + BLOOD BANK HOLD TUBE - DON T PROCESS (09/02/2019 10:44 AM PDT) + + + + + [...] [facility] | [address] | [place] [address] | | | SERVICES, | [address] | | | | TRANSFUSION MEDICINE | | | | + + + + + [facility] - COMPLETE METABOLIC SET (09/02/2019 10:44 AM PDT) + + + + + + | Component | Value | Ref Range | Performed | Pathologist | | | | | At | Signature | + + + + + + | GLUCOSE, | 200 (H) | 70 - 99 mg/dL | [...] + + + + | CREATININE | 0.76 | 0.60 - 1.10 | [facility] | [...] | | | LABORATORY | | | YEMENI | | | SERVICES, | | | [...] + + + + | SODIUM, | 135 [...] + + + + | CHLORIDE, | 99 [...] + + + + | CALCIUM, | 9.6 | 8.6 - 10.2 | [facility] | | | PLASMA | | mg/dL | LABORATORY | | | (LAB) | | | SERVICES, | | | | | | [facility] | | | | [facility] + | | | | | | HEALING | | + + + + + + | CALCIUM(ALB | 10.6 (H) | 8.6 - 10.2 | [facility] [...] + + + | ALK PHOS | 131 | 53 - 141 U/L | [facility] | | | | | | LABORATORY | | | | | | SERVICES, | | | | | | [facility] | | [facility] + | | | | | | HEALING | | + + + + + + | AST(SGOT) | 20 | <=41 U/L | [facility] | | | | | | LABORATORY | | | | | | SERVICES, | | | | | | [facility] | | | [facility] + | | | | | | HEALING | | + + + + + + | ALT (SGPT) | 32 | <=60 U/L | [facility] | | [...] + + + + | BUN/CREATIN | 22 | 8 - 25 | [facility] | [...] MDRD equation recommended by the National | [facility] | | Kidney Disease Education [...] | + + + + + | [facility] | [address] | [place] [address] | | | SERVICES, [facility] | | | | | [facility] + [facility]ALING | | | | + + + + + documented in this encounter Visit Diagnoses + + | Diagnosis | + + | Pancytopenia (HCC) - Primary Other pancytopenia | + + documented in this encounter"
--- OUTSIDE RECORDS SUMMARY | ~2019-12-27 | XMS | Encounter Summary ---
Demographics + + + | Address | [address] | | | [place] [address] | + + + | Home Phone [...] Team Providers + +------+ + | Care Resident Care Manager Name | Role | Phone | [...] [place], | | | | | [facility] | [place] [address] | | | | | Health and Healing, | [phone] | | | | | [facility] | | | | | | [place], [place] | | | | | | [address] | | | | | | [phone] | | | +--------+ + + + [...] | | | | | [address], | | | | | | [place] [address] | | | | | | [phone] | | | | | | | | +--------+ + + + + | 01/14/ | Appointment | Hematology & | Onc, [address] | | | 2020 | | Oncology | [place], | | | | | | [place] [address] | | +--------+ + + + + documented as of this encounter Visit Diagnoses Not on filedocumented in this encounter"
--- OUTSIDE RECORDS SUMMARY | ~2019-12-27 | XMS | Encounter Summary ---
Demographics + + + | Address | [address] | | | [place] [address] | + + + | Home Phone [...] Team Providers + +------+ + | Care Motor Rebuilder Name | Role | Phone | + +------+ + | Oz Rodriguez MD | PCP | | + +------+ + Encounter Details +--------+ + + + + | Date | Type | Department | Care Team | Description | +--------+ + + + + | 09/01/ | Pharmacy | [facility] | | | | 2020 | Visit | [address] | | | | | | [address] | | | | | | [place] [address] | | | | | | [phone] | | | +--------+ + + + [...] | | | | | | [place] [address] | | | | | | [phone] | | | | | | | | +--------+ + + + + | 01/14/ | Appointment | Hematology & | Onc, [address] | | | 2019 | | Oncology | [place] | | | | | | [place] [address] | | +--------+ + + + + documented as of this encounter Visit Diagnoses Not on filedocumented in this encounter"
--- OUTSIDE RECORDS SUMMARY | ~2019-12-27 | XMS | Encounter Summary ---
Demographics + + + | Address | [address] | | | [place] [address] | + + + | Home Phone [...] Team Providers + +------+ + | Care Back Tender Fourdrinier Name | Role | Phone | + +------+ + | Oz Rodriguez MD | PCP | | + +------+ + Encounter Details +--------+ + + + + | Date | Type | Department | Care Team | Description | +--------+ + + + + | 09/23/ | Pharmacy | Pharmacy @ [facility] | | | | 2020 | Visit | [address] | | | | | | [place] Mailcode: | | | | | | [facility] | | | | | | [address], | | | | | | [address] | | | | | | [place], [place] | | | | | | [address] | | | +--------+ + + + [...] | | | | | [place], | | | | | | [place] [address] | | | | | | [phone] | | | | | | | | +--------+ + + + + | 01/14/ | Appointment | Hematology & | Onc, [address] | | | 2020 | | Oncology | [place], | | | | | | [place] [address] | | +--------+ + + + + documented as of this encounter Visit Diagnoses Not on filedocumented in this encounter"
--- OUTSIDE RECORDS SUMMARY | ~2019-12-27 | XMS | Encounter Summary ---
Demographics + + + | Address | [address] | | | [place] [address] | + + + | Home Phone [...] Team Providers + +------+ + | Care Roustabout Name | Role | Phone | + [...] + + | 08/04/ | Hospital | [facility] [address] | Jamie [place], | | | 2020 - | Encounter | Duck Mailcode: | [address] | | | | | [address] | [address] | | | 08/07/ | | [place], | [place], [place] | | | 2020 | | [place] [address] | [address] | | | | | [phone] | [phone] | | | | | | | | | | | | Sheri Rosado MD | | | | | | [address] | | | | | | [address] | | | | | | [place], [place] | | | | | | [address] | | | | | | [phone] | | | | | | | [...] Levi PA-C - 08/08/2019 1:33 PM PST [facility] Discharge Summary Discharging Provider: Valarie Levi PA-C [...] who was in her usual [place] [facility] [place] [facility] when she was noted to have pancytopenia and sent to [facility] for further evaluation. She wa s initially [...] at the advice of her daughter (an [facility] RN) she decided to drive from [place] on 08/04 to be seen in the [facility] ED. She is currently fee ling fatigued [...] 3:10 PM BMT INFUSION Hematology/Medical Oncology at [facility] [phone] [facility] 08/14/2019 2:50 PM Pod A Hematology/Medical Oncology at [facility] [phone] [facility] Subjective: Feels well. Had a lot of [...] EOSPERC 0.0* 0.0* 0.0* NARCISO Davis PA-C [facility] [address] [facility] Mailcode: Kpv14 [place] [address] Associated attestation - Sheri Rosado MD - [...] diagnosis here and have treatment guidance from [facility]. Subjective: Discussed clinical trials to consider if this is MDS vs. Acute leukemia. Patient and aubrey griffith want to consider trials and obtain more info. Consents done BM Bx performed after. Unable to obtain aspirate. D/C'd before FLT3 drawn. She is returning to [facility] for labs and transfusion on Sunday. Will have FLT3 drawn and expedited on Sunday. Will email [facility] Leukemia physicians to arrange outpatient follow-up. Objective: Exam: Gen: appears well. 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 Cores sent - 08/10: will present to [facility] for labs and transfusion. To have FLT3 drawn # Thrombocytopenia, Plt 20-30s - Lives far, likely unable to receive platelet transfusions immediately if indicated - We discussed staying in the area until BM Bx resulted and care established with [facility] josé sweeney. Unfortunately, their daughter (in [place]) has kids who are sick and so they chose to go back home. plans to drive her back on Sunday. # Hyperglycemia - HbA1C - pending # HTN - continue home meds # Anxiety - continue home meds Please refer to the SAMUEL's note for today for details of assessment and plan. Sheri Rosado MD [facility] [address] [facility] Mailcode: Kpv14 [place] [address] documented in this encounter Discharge Instructions Discharge Instr - AVS First Page Valarie Levi PA-C - 08/08/2019 1:31 PM PSTNotify [facility] triage [...] 08/08/2019 1:30 PM PSTYou were admitted to [facility] with low blood counts. You were found [...] if you have any questions! BMT CLINIC ([facility]) during clinic hours (M-F 8:30-4:30): [phone] BMT CLINIC ([facility]) at all other times: [phone] 14KPV: [phone] How was your stay with us? Is [...] AML (The Beat AML Trial) - eIRB 17168. 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 The patient expr essed interest in learning [...] signed consent was provided to the patient. Academic Affairs Coordinator confirms they have reviewed inclusion and exclusion criteria. Sheri Rosado MD [facility] [address] [facility] Mailcode: Kpv14 [place] [address] Jennifer Fisher R N - 08/08/2019 5:16 PM PST Met with patient up on 14K in his room to introduce myself as Leukemia Nurse Navigator for [facility] for Hematologic Malignancies and explain my role [...] (for example: hospital system, imaging, lab, etc)? [facility] Parametric [facility] or [facility] Parametric Treatment Hx: TBD Symptom Assessment: Around time of diagnosis, she was having fatigue with noted shortness o f breath and some chills when she went to an OSH, then told to come to [facility] for further eval uation and admitted. Since [...] and her live [place] a farm outside [place]. Family/Support System: Supportive , Sky. Daughter, who is an RN at [facility] has been coming to see her often. [...] but have a daughter who lives in [facility] [facility] [place], and are willing to stay in a [...] Assessment - Social Work/CM: SW following - Dairy Nutrition Consultant: not at this time - Financial Counseling: pt did not indicate need at this time - Clinical Trials: Yes, pt being screening for [employer] and BEAT AML - Insurance Barriers: none. She has medicare with supplemental coverage Origin of Referral: pt came in through [facility] ED Patient Care team: PCP- JOSEFA Lewis [...] standard repletion, none required today #Hypothryoid- continue RADIO INTERFERENCE EXPERT levothyroxine #Hypertension- continue RADIO INTERFERENCE EXPERT HCTZ/Losartan #Electrolytes: standard replacement parameters, none required [...] who was in her usual [place] [facility] when she was noted to have pancytopenia and sent to [facility] for further evaluation. She wa s initially [...] at the advice of her daughter (an [facility] RN) she decided to drive from [place] on 08/04 to be seen in the [facility] ED. She is currently fee ling fatigued [...] for Mon/Thurs next week. NARCISO Davis PA-C [facility] [address] [facility] Mailcode: Kpv14 [place] [address] Associated attestation - Sheri Rosado MD - [...] diagnosis here and have treatment guidance from [facility]. Subjective: Discussed clinical trials to consider if [...] of assessment and plan. Sheri Rosado MD [facility] [address] [facility] [address] Mailcode: Kpv14 [place] [address] McDorothea Zamarripa MSW,CHIEF OF STAFF - 08/07/2019 1:17 PM PSTReferral received from: Inpati ent team Purpose of the Interview: Introduce role and responsibilities Current Living Situation: Fidelia lives in [facility], which is outside of [place], with her Sky. They live and work [...] this date. Medical issues: Fidelia came to [facility] to be evaluated for pancytopenia. She will likely have a bone marrow biopsy today. IT IS IMPORTANT TO NOTE: Fidelia, her and her daughter harkins ve stated that getting care close to home is very important to her. Therefore, enrolling he r in clinical trials that will require her to be at [facility] often many not be the best choice [...] and provide support as needed NHI Carbajal, CHIEF OF STAFF, OSW-C [facility]ign[facility] Pager [phone] Vonda Lopes - 08/06/2019 11:16 AM PSTTransthoracic [...] | | | [address]ise [address] [place], | | | | | | [place] [address] | | | | | | [phone] | | | | | | | | +--------+ + + + + | 01/14/ | Appointment | Hematology & | Onc, Gen [address] | | | 2019 | | Oncology | [place], | | | | | | [place] [address] | | +--------+ + + + + [...] by | | | | | | [employer],[address] | | | | | | [address] [facility],[place] | | | | | | [address] | | | | | | [phone]. | | | | | | Rios [...] [facility] | [address] | [place], [place] | | | [facility] | | [address] | | + + + + + [...] [facility] | [address] | [place] [address] | | | SERVICES, CORE | PARK [...] | + + + + + | [facility] | [address] | [place] [address] | | | SERVICES, CORE | ELISE [...] | | | this test in the [facility] | | | | | | Laboratory Test | | | | | | Directory | | | | | | ([employer]).Performed | | | | | | by [employer],[address] | | | | | | [address], [facility],[place] | | | | | | [address] | | | | | | [phone].[email or web address]. | | | | | | com, [...] [facility] | [address] | [place], [place] | | | [facility] | | [address] | | + + + + + [...] [facility] | [address] | [place] [address] | | | SERVICES, CORE | PARK [...] [facility] | [address] | [place] [address] | | | SERVICES, CORE | PARK [...] [facility] | [address] | [place] [address] | | | SERVICES, CORE | PARK [...] [facility] | [address] | [place] [address] | | | SERVICES, CORE | PARK [...] | + + + + + | [facility] | [address] | [place] [address] | | | SERVICES, CORE | PARK [...] | + + + + + | [facility] | [address] | [place] [address] | | | SERVICES, CORE | [address] | | | + + + + + CHOLESTEROL TOTAL, PLASMA (08/08/2019 3:11 PM PST) + +-------+ + + + | Component | Value | Ref Range | Performed | Pathologist | | | | | At | Signature | + +-------+ + + + | CHOLESTEROL | 124 | <200 mg/dL | [facility] | | | (LAB) | | | [...] | + + + + + | [facility] | [address] | [place] [address] | | | SERVICESANY | [address] [...] | + + + + + | [facility] | [address] | [place] [address] | | | ANY GUZMAN | ELISE [...] | | BASOPHILCO 0.00 08/06/19 LUCIAN Cast [facility] 14K | | | [address] [facility] Mailcode: Kpv[address] [place] [address] | | | [phone] | | + + + PRODUCT - [...] + + + + | PRODUCT | [id number] | | [facility] | | | UNIT [...] + + + + | EXPIRATION | [id number] | | [facility] | | | DATE [...] + + + + | BLOOD | [id number] | | [facility] | | | PRODUCT [...] | + + + + + | [facility] | [address] | [place] [address] | | | MEGAN, | [address] [...] | | | | | such as [id number] are | | | | | | recommended. Case seen | | | | | | by:GLORIA Mehta, | | | | | | MPH | | | | | | | | | | | | Pathology ResidentMar | | | | | | Leeann WORTHY, PhD - | | | | | | HematopathologistPatholo | | | | | | gy, [facility] | | | | | | [facility] Center[facility] | | | | | | electronic [...] | | | | | | Antibodies MuvippTU89 | | | | | | CD14 [...] | + + + + + | [facility] | [address] | [place] [address] | | | PATHOLOGY | [address] [...] [facility] | [address] | [place] [address] | | | SERVICES, CORE | ELISE [...] | [facility] | | | GRAVITY | Munising performed by | | LABORATORY | | [...] [facility] | [address] | [place] [address] | | | SERVICES, CORE | PARK [...] | + + + + + | [facility] | [address] | [place] [address] | | | SERVICES, CORE | ELISE [...] | + + + + + | [facility] | [address] | [place] [address] | | | SERVICES, CORE | ELISE [...] + + | [facility] | [address] [facility] | [place] [address] | | | SERVICES, CORE | PARK [...] [facility] | [address] | [place] [address] | | | SERVICES, CORE | PARK [...] [facility] | [address] | [place] [address] | | | SERVICES, CORE | PARK [...] | + + + + + | [facility] | [address] | [place] [address] | | | MEGAN, ANY | ELISE [...] [facility] | [address] | [place] [address] | | | SERVICES, CORE | PARK [...] | | | LABORATORY | | | [address] | | | SERVICES, | | | [...] | + + + + + | [facility] | [address] [facility] [address] | [place] [address] | | | SERVICES, ANY | [address]ISE [...] [facility] | [address] | [place] [address] | | | SERVICES, CORE | PARK [...] | [facility] | | considered for monitoring snf glycemic control in patients with: | LABORATORY [...] + + | [facility] | [address] [facility] | [place] [address] | | | SERVICES, SPECIAL | PARK [...] [facility] | [address] | [place] [address] | | | SERVICES, CORE | PARK [...] | + + + + + | [facility] | [address] [facility] | [place] [address] | | | SERVICES, CORE | PARK [...] | + + + + + | [facility] | [address] | [place] [address] | | | SERVICES, ANY | ELISE [...] [facility] | [address] | [place] [address] | | | SERVICES, CORE | PARK [...] + + | [facility] | [address] [facility] | [place] [address] | | | SERVICES, CORE | PARK [...] [facility] | [address] | [place] [address] | | | SERVICES, ANY | ELISE [...] [facility] | [address] | [place] [address] | | | SERVICES, CORE | ELISE [...] | | | LABORATORY | | | [address] | | | SERVICES, | | | [...] MDRD equation recommended by the National | [facility] | | Kidney Disease Education Program. Estimated GFR Interpretive | LABORATORY | | Information: <60 mL/min/1.73 sq m Chronic Kidney | SERVICES, [facility] | | Disease <15 mL/min/1.73 sq m [...] | + + + + + | [facility] | [address] | [place] [address] | | | ANY GUZMAN | PARK [...] | | | | | | Pathology, [facility] | | | | | | [...] CD123 | | | | | | BD181q HLA-DR sKappa | | | | | [...] | Ratio | | | | | |Poneto/Lambda 1.6 | | | | | |CD4/CD8 [...] CD117 CD123 | | | | | |ZY718q HLA-DR sKappa sLambda cTDT cMPO | | [...] | + + + + + | [facility] | [address] | [place] [address] | | | PATHOLOGY | [address] | | | + + + + + X-RAY PORTABLE CHEST 1 VIEW (08/06/2019 10:26 AM PST) + + | Specimen | + + | | + + + + + | Narrative | Performed At | + + + | EXAM: VT CHEST 1 VIEW HISTORY: PICC insertion COMPARISON: [...] Note | + + | Service Account, iConText Res In Interface - 08/06/2019 10:34 AM PST EXAM: VT CHEST 1 | | VIEW HISTORY: PICC [...] Performed At | + + + | [facility] | [facility] DEPT OF | | [facility] Adult Echocardiography Laboratory [address] | CARDIOLOGY | | [place], [place] [address] Ph: | | | Pt Name: FIDELIA PICKETT | | | Study Date/Time 08/06/2019 / 10:21:22 AMMRN: [id number] | | | Most recent prior: -Acc #: [id number] | | | No. previous echos: 0DOB: 1950 69 years Heart Rate: | | | 60 bpmHeight: 66.0 in Blood Pressure: | | | 144/59 mm/HgWeight: 229.0 lb Gender: | | | FBSA: 2.12 m | | | Order ID: [id number] Study | | | [facility] Vonda Holcomb [facility], [facility]ENTERReferring Provider: | | | FAM PINZONModwanda Performed: 2D, Color flow, Spectral | | | Doppler, Strain and For the precise quantification of LV volumes and | | | ejection fraction, online 3-D reconstruction was clinically indicated | | | and performed under the concurrent supervision of the interpreting | | | stock saw operator.Study Quality: Good.Exam Indication: Cardiotoxic | | | therapiesHistory: y/o w/ hx of HTN and hypothyroidism who was in her | | | usual state of health when she was noted to have pancytopenia and sent | | | to [facility] for further evaluation. Patient history has been [...] | indexed values Report electronically signed by: [id number] Eric | | | Riley WORTHY, PhD [...] | | | |Report electronically signed by: [id number] Eric Lin MD, PhD (08/06/2019, | | |11:56:44 AM) | | |Fellow(s) participating in diagnosis: Corina Luke; | | | | | | | | | | | | Final | | + + + + + | Procedure Note | + + | Interface, Cardiology Results - 08/06/2019 11:56 AM [facility] | | [facility] Echocardiography Laboratory [facility] | | [place], [place] [address] Pt Name: FIDELIA ALARCON | | NELA Study Date/Time 08/06/2019 / 10:21:22 AMMRN: [id number] Most | | recent prior: -[facility] #: [id number] No. previous echos: 0DOB: 1950 69 | | years Heart Rate: 60 bpmHeight: 66.0 in Blood Pressure: 144/59 | | mm/HgWeight: 229.0 lb Gender: FBSA: 2.12 m | | Order ID: [id number] Study Location: [address] [place], [place] [address]grapher: Vonda Larissa | | [facility] Provider: FAM Ch[place]illa Performed: 2D, Color flow, | | Spectral Doppler, Strain and For the precise quantification of LV volumes and ejection | | fraction, online 3-D reconstruction was clinically indicated and performed under the | | concurrent supervision of the interpreting stock saw operator.Study Quality: Good.Exam | | Indication: Cardiotoxic therapiesHistory: y/o w/ hx of HTN and hypothyroidism who was in | | her usual state of health when she was noted to have pancytopenia and sent to [facility] for | | further evaluation. Patient history [...] | | values Report electronically signed by: [id number] Eric Lin MD, PhD (08/06/2019, | | [...] | | | |Report electronically signed by: [id number] Eric Lin MD, PhD (08/06/2019, | |11:56:44 AM) | |Fellow(s) participating in diagnosis: Corina Luke; | | | | | | | | Final | + + + + + + + | Performing | Address | City/State/Zipcode | Phone Number | | Organization | | | | + + + + + | [facility] | [address] | [place], [place] | | | CARDIOLOGY | [address] | [address] | | + + + + + [...] | pause verifies correct patient, procedure, equipment, sales support rep | | | and site/side marked as [...] vein. Catheter lot number: | | | [id number] with a length of 55 cm was [...] | + + + + + | [facility] | [address] | [place] [address] | | | SERVICES, | [address] [...] + + + + | PRODUCT | [id number] | | [facility] | | | UNIT [...] + + + + | EXPIRATION | [id number] | | [facility] | | | DATE [...] + + + + | BLOOD | [id number] | | [facility] | | | PRODUCT [...] [facility] | [address] | [place] [address] | | | SERVICES, | [address] [...] [facility] | [address] | [place] [address] | | | SERVICES, CORE | PARK [...] | + + + + + | [facility] | [address] | [place] [address] | | | SERVICES, CORE | [address]ISE [...] | + + + + + | [facility] | [address] | [place] [address] | | | SERVICES, CORE | [address] | | | + + + + + MAGNESIUM, PLASMA (08/06/2019 3:57 AM PST) + +-------+ + + + | Component | Value | Ref Range | Performed | Pathologist | | | | | At | Signature | + +-------+ + + + | MAGNESIUM,P | 2.1 | 1.6 - 2.6 mg/dL | [facility] | | | LASMA | | | [...] | + + + + + | [facility] | [address] [facility] | [place] [address] | | | SERVICES, CORE | ELISE [...] | | | LABORATORY | | | [address] | | | SERVICES, | | | [...] [facility] | [address] | [place] [address] | | | SERVICES, CORE | P[address] [...] [facility] | [address] | [place] [address] | | | SERVICES, CORE | PARK [...] | + + + + + | [facility] | [address] | [place] [address] | | | SERVICES, CORE | PARK [...] | + + + + + | [facility] | [address] | [place] [address] | | | SERVICES, CORE | ELISE [...] | + + + + + | [facility] | [address] | [place] [address] | | | SERVICES, [facility] | [address] | | | + [...] | + + + + + | [facility] | [address] | [place] [address] | | | SERVICES, CORE | [address] [...] [facility] | [address] | [place] [address] | | | SERVICES, CORE | [address]ISE [...] | + + + + + | [facility] | [address] [facility] [address] [address] | [place] [address] | | | SERVICES, CORE | [address]ISE [...] + + | [facility] | [address] [address] | [place] [address] | | | SERVICES, CORE | [address] [...] [facility] | [address] | [place] [address] | | | SERVICES, CORE | P[address] [...] | + + + + + | [facility] | [address] | [place] [address] | | | ANY GUZMAN | [address]ISE [...] | + + + + + | [facility] | [address] [facility] [address] | [place] [address] | | | ANY GUZMAN | [address]ISE [...] [facility] | [address] | [place] [address] | | | SERVICES, CORE | [address] [...] [facility] | [address] | [place] [address] | | | SERVICES, | [address] [...] [facility] | [address] | [place] [address] | | | SERVICES, | [address] [...] | | | LABORATORY | | | [address] | | | SERVICES, | | | [...] | + + + + + | [facility] | [address] | [place] [address] | | | SERVICES, CORE | [address] [...] | + +---+ | | | | [id number] | | | (SPECIAL MOUTHWASH) suspension | [...]
--- OUTSIDE RECORDS SUMMARY | ~2019-12-27 | XMS | Encounter Summary ---
Demographics + + + | Address | [address] | | | [place] [address] | + + + | Home Phone [...] Team Providers + +------+ + | Care Design Technology Professor Name | Role | Phone | [...] Clinics at S | [address] [facility] | Documentation | | | | [facility] [address] [place], | | | | | [facility] | [place] [address] | | | | | Health and Healing, | [phone] | | | | | [address] | | | | | | [place], [place] | | | | | | [address] | | | | | | [phone] | | | +--------+ + + + [...] | | | | | | [place] [address] | | | | | | [phone] | | | | | | | | +--------+ + + + + | 01/14/ | Appointment | Hematology & | Onc, Gen [address] | | | 2019 | | Oncology | [place], | | | | | | [place] [address] | | +--------+ + + + + documented as of this encounter Visit Diagnoses Not on filedocumented in this encounter"
--- OUTSIDE RECORDS SUMMARY | ~2019-12-27 | XMS | Encounter Summary ---
Demographics + + + | Address | [address] | | | [place] [address] | + + + | Home Phone [...] Team Providers + +------+ + | Care Caser Up Name | Role | Phone | + [...] | | | | is) (HCC) | [facility] | [address] [facility] | | | | | Procedures | Rd | [facility] | | | | | TRANSTHORACI | [place], [place] | ROAD | | | | | C | [address] | [place], [place] | | | | | ECHOCARDIOGR | Phone: | [phone] | | | | | AM, ADULT | [phone] | Phone: | | | | | | Fax: | [phone] | | | | | | [phone] | | + +--------+ + + + + Encounter Details +--------+ + + + + | Date | Type | Department | Care Team | Description | +--------+ + + + + | 12/08/ | Hospital | Cardiac | | | | 2020 | Encounter | Non-Invasive Testing | | | | | | at [facility] [address] | | | | | | e [place] for | | | | | | Health and Healing, | | | | | | [address] | | | | | | [place], [place] | | | | | | [address] | | | | | | [phone] | | | +--------+ + + + [...] | | | | | | [place] [address] | | | | | | [phone] | | | | | | | | +--------+ + + + + | 01/14/ | Appointment | Hematology & | Onc, Gen [address] | | | 2019 | | Oncology | [place] | | | | | | [place] [address] | | +--------+ + + + + [...]
--- OUTSIDE RECORDS SUMMARY | ~2019-12-27 | XMS | Encounter Summary ---
Demographics + + + | Address | [address] | | | [place] [address] | + + + | Home Phone [...] + | Cherelle Silva | ECON | Dagmra, | | + + + + + Care Team Providers + +------+ + | Care Pharmacy Customer Care Specialist Name | Role | Phone | + +------+ + | Oz Rodriguez MD | PCP | | + +------+ + Encounter Details +--------+ + + + + | Date | Type | Department | Care Team | Description | +--------+ + + + + | 10/07/ | Pharmacy | [facility] | | | | 2020 | Visit | [address] | | | | | | [address] | | | | | | [place] [address] | | | | | | [phone] | | | +--------+ + + + [...] | | | | | | [place] [address] | | | | | | [phone] | | | | | | | | +--------+ + + + + | 01/14/ | Appointment | Hematology & | Onc, [address] | | | 2019 | | Oncology | [place] | | | | | | [place] [address] | | +--------+ + + + + documented as of this encounter Visit Diagnoses Not on filedocumented in this encounter"
--- OUTSIDE RECORDS SUMMARY | ~2019-12-27 | XMS | Encounter Summary ---
Demographics + + + | Address | [address] | | | [place] [address] | + + + | Home Phone [...] Providers + +------+ + | Care Senior Escrow Officer Name | Role | Phone | [...] | [facility] [address] [place], | | | | | [facility] | [place] [address] | | | | | Health and Healing, | [phone] | | | | | [address] | | | | | | [place], [place] | | | | | | [address] | | | | | | [phone] | | | +--------+ + + + [...] | | | | | [place], | | | | | | [place] [address] | | | | | | [phone] | | | | | | | | +--------+ + + + + | 01/14/ | Appointment | Hematology & | Onc, Gen [address] | | | 2019 | | Oncology | [place], | | | | | | [place] [address] | | +--------+ + + + + [...] [facility] | [address] | [place] [address] | | | SERVICES, CENTER FOR | [...] [facility] | [address] | [place] [address] | | | [facility] | | | | | HEALTH + HEALING | | | | + + + + + documented in this encounter Visit Diagnoses + + | Diagnosis | + + | Myelofibrosis (HCC) Myelofibrosis | + + documented in this encounter"
--- OUTSIDE RECORDS SUMMARY | ~2019-12-27 | XMS | Encounter Summary ---
Demographics + + + | Address | [address] | | | [place] [address] | + + + | Home Phone [...] Providers + +------+ + | Care Group Insurance Special Agent Name | Role | Phone | [...] on | Clinics at S | [address] [facility] | Documentation | | | | [facility] [address] [place], | | | | | [facility] | [place] [address] | | | | | Health and Healing, | [phone] | | | | | [address] | | | | | | [place], [place] | | | | | | [address] | | | | | | [phone] | | | +--------+ + + + [...] | | | | | | [place] [address] | | | | | | [phone] | | | | | | | | +--------+ + + + + | 01/14/ | Appointment | Hematology & | Onc, Gen [address] | | | 2019 | | Oncology | [place], | | | | | | [place] [address] | | +--------+ + + + + documented as of this encounter Visit Diagnoses Not on filedocumented in this encounter"
--- OUTSIDE RECORDS SUMMARY | ~2019-12-27 | XMS | Encounter Summary ---
Demographics + + + | Address | [address] | | | [place] [address] | + + + | Home Phone [...] Team Providers + +------+ + | Care Dental Assisting Instructor Name | Role | Phone | + [...] | [facility] [address] [place], | | | | | [facility] | [place] [address] | | | | | Health and Healing, | [phone] | | | | | [address] | | | | | | [place], [place] | | | | | | [address] | | | | | | [phone] | | | +--------+ + + + [...] | | | | | [place], | | | | | | [place] [address] | | | | | | [phone] | | | | | | | | +--------+ + + + + | 01/14/ | Appointment | Hematology & | Onc, Gen [address] | | | 2020 | | Oncology | [place], | | | | | | [place] [address] | | +--------+ + + + + documented as of this encounter Visit Diagnoses Not on filedocumented in this encounter"
--- OUTSIDE RECORDS SUMMARY | ~2019-12-27 | XMS | Encounter Summary ---
Demographics + + + | Address | [address] | | | [place] [address] | + + + | Home Phone [...] Team Providers + +------+ + | Care Production Supervisor Name | Role | Phone | [...] + + | 09/01/ | Hospital | [facility] | A, [address] | | | 2020 | Encounter | Clinics at S | [facility], | | | | | [facility] [address] | [place] [address] | | | | | [facility] | | | | | | Health and Healing, | | | | | | [address] | | | | | | [place], [place] | | | | | | [address] | | | | | | [phone] | | | +--------+ + + + [...] | | | | | | [place] [address] | | | | | | [phone] | | | | | | | | +--------+ + + + + | 01/14/ | Appointment | Hematology & | Onc, [address] | | | 2019 | | Oncology | [place] | | | | | | [place] [address] | | +--------+ + + + + [...] + + + + | PRODUCT | [id number] | | [facility] | | | UNIT [...] + + + + | EXPIRATION | [id number] | | [facility] | | | DATE [...] + + + + | BLOOD | [id number] | | [facility] | | | PRODUCT [...] [facility] | [address] | [place] [address] | | | SERVICES, | [address] [...] | + + + + + | [facility] | [address] | [place] [address] | | | [facility] | | | [...] LABORATORY | [address] | [place] [address] | | | [facility] | | | | | HEALTH [...] [facility] | [address] | [place] [address] | | | SERVICES, [facility] FOR | | | | | HEALTH [...] | + + + + + | [facility] | [address] | [place] [address] | | | SERVICES, [facility]ST[facility] FOR | | | | | HEALTH [...] [facility] | [address] | [place] [address] | | | SERVICES, CENTER FOR | [...] [facility] | [address] | [place] [address] | | | SERVICES, | [address] [...] MDRD equation recommended by the National | [facility] | | Kidney Disease Education Program. Estimated [...] | + + + + + | [facility] | [address] | [place] [address] | | | SERVICES, CENTER FOR | | | | | HEALTH + HEALING | | | | + + + + + documented in this encounter Visit Diagnoses + + | Diagnosis | + + | Pancytopenia (HCC) - Primary Other pancytopenia | + + documented in this encounter"
--- OUTSIDE RECORDS SUMMARY | ~2019-12-27 | XMS | Encounter Summary ---
Demographics + + + | Address | [address] | | | [place] [address] | + + + | Home Phone [...] Team Providers + +------+ + | Care Laminator [employer]ed Circuit Boards Name | Role | Phone | + +------+ + | Oz Rodriguez MD | PCP | | + +------+ + Encounter Details +--------+ + + + + | Date | Type | Department | Care Team | Description | +--------+ + + + + | 09/23/ | Pharmacy | Pharmacy @ [facility] | | | | 2020 | Visit | [address] | | | | | | [place] Mailcode: | | | | | | [facility] | | | | | | [address] [place], | | | | | | [address] | | | | | | [place], [place] | | | | | | [address] | | | +--------+ + + + [...] | | | | | [place], | | | | | | [place] [address] | | | | | | [phone] | | | | | | | | +--------+ + + + + | 01/14/ | Appointment | Hematology & | Onc, Gen [address] | | | 2020 | | Oncology | [place], | | | | | | [place] [address] | | +--------+ + + + + documented as of this encounter Visit Diagnoses Not on filedocumented in this encounter"
--- OUTSIDE RECORDS SUMMARY | ~2019-12-27 | XMS | Encounter Summary ---
Demographics + + + | Address | [address] | | | [place] [address] | + + + | Home Phone [...] Team Providers + +------+ + | Care Talent Rep Name | Role | Phone | + [...] [address] [facility] | 24 Hr Screening) | | | | [facility] [address] | [place], | | | | | [facility] | [place] [address] | | | | | Health and Healing, | [phone] | | | | | [facility] [address] | | | | | | [place], [place] | | | | | | [address] | | | | | | [phone] | | | +--------+ + + + [...] | | | | | | [place] [address] | | | | | | [phone] | | | | | | | | +--------+ + + + + | 01/14/ | Appointment | Hematology & | Onc, Gen [address] | | | 2019 | | Oncology | [place] | | | | | | [place] [address] | | +--------+ + + + + documented as of this encounter Visit Diagnoses Not on filedocumented in this encounter"
[~2019-12-27 10:29] MED LIST: ACYCLOVIR800 MG PO; CELECOXIB100 MG PO; COZAAR100 MG PO; CYMBALTA30 MG PO; DIFLUCAN200 MG PO; HYDROCHLOROTHIA25 MG PO; JAKAFI5 MG PO; LEVOFLOXACIN500 MG PO; MELATONIN3 MG PO; SERTRALINE HCL50 MG PO; SYNTHROID25 MCG PO; VFEND200 MG PO
--- NOTE | 2019-12-27 22:13 | EKG ---
[facility] [address] [place] [address] Signed Sinus rhythm with premature atrial complexes Otherwise normal ECG When compared with ECG of 12-DEC-2019 12:33, premature atrial complexes are now present Confirmed by JAQUELINE PALACIO MD ([id number]) on 12/27/2019 10:13:33 PM Electronically Signed By: JAQUELINE PALACIO MD 12/27/19 2213 PATIENT NAME: NELALANETTE Electrocardiogram DATE OF : 50 PHYSICIAN: JAQUELINE PALACIO MD REPORT #: [id number] REPORT IS CONFIDENTIAL AND NOT TO BE RELEASED WITHOUT AUTHORIZATION
== END 2019-12-27 13:17 | disposition home or self-care (01) ==
LOC: ED 10:29
DX: K08.89 Other specified disorders of teeth and supporting structures (principal); Z79.899 Other long term (current) drug therapy
CPT/HCPCS: 80048; 85025; 86850; 86900; 86901; 93005; 93010; 96374; 99283-25